=== PATIENT | male | born 1965 | race Caucasian/White ===

== ENCOUNTER 2016-08-30 02:36 | Inpatient (IN) | payer OTHER ==
[2016-08-30] MEDS ORDERED: Sodium Chloride 0.9% 1,000 ML IV STA ×2 (02:54→06:15)
--- NOTE | 2016-08-30 03:07 | ED PDOC ---
HPI: Seizure Time Seen by Provider: 08/30/16 02:37 Chief Complaint (Nursing): Seizure Chief Complaint (Provider): seizure History Per: Patient, EMS History/Exam Limitations: no limitations Recent Seizure Activity Began: Just Before Arrival Number Of Seizures: One Length Of Seizures (Duration): Minutes Precipitating Factor(s): Recent Alcohol Ingestion Post-ictal Period: Yes Additional Complaint(s): 51yo male with PMHx including HTN and Crohn's disease presents to the ED s/p seizure. Patient states he drinks 6 pack of beer and whiskey everyday and reports he has had flu-like symptoms for 2 weeks and has been recently cutting back on the whiskey. According to EMS, reported 1 episode of tonic-clonic seizure that was less than 5 minutes witnessed by her. She noted postictal period and when EMS arrived patient's bp was elevated and he was tachycardic. Patient does not remember episode and last thing he remembers was falling asleep. Past Medical History Reviewed: Historical Data, Nursing Documentation, Vital Signs Vital Signs: Last Vital Signs Temp 98.1 F 08/30/16 02:53 Pulse 126 H 08/30/16 02:53 Resp 20 08/30/16 02:53 BP 154/99 H 08/30/16 02:53 Pulse Ox 93 L 08/30/16 06:18 - Medical History PMH: Crohn's Disease, HTN - Surgical History Surgical History: Hernia Repair (hernia present and large abdominal scar (well healed visible)) - Family History Family History: States: No Known Family Hx - Home Medications Home Medications: Ambulatory Orders Medication Instructions Recorded Lisinopril [Prinivil] 20 mg PO DAILY 08/30/16 metFORMIN [glucOPHAGE] 500 mg PO DAILY 08/30/16 - Allergies Allergies/Adverse Reactions: Allergies Allergy/AdvReac Type Severity Reaction Status Date / Time ibuprofen [From Motrin] AdvReac NAUSEA Verified 08/30/16 02:45 Review of Systems ROS Statement: Except As Marked, All Systems Reviewed And Found Negative Cardiovascular: Positive for: Other (high bp, tachycardic ) Neurological: Positive for: Seizures (x1) Physical Exam - Reviewed Nursing Documentation Reviewed: Yes Vital Signs Reviewed: Yes - Physical Exam Appears: Positive for: Well, No Acute Distress Head Exam: Positive for: ATRAUMATIC, NORMAL INSPECTION, NORMOCEPHALIC Skin: Positive for: Normal Color, Warm, Dry Eye Exam: Positive for: Normal appearance, EOMI, PERRL ENT: Negative for: Normal ENT Inspection (tongue fasiculations, multiple tongue abrasions and small hematomas) Neck: Positive for: Normal, Painless ROM, Supple Cardiovascular/Chest: Positive for: Tachycardia. Negative for: Murmur Respiratory: Positive for: Normal Breath Sounds. Negative for: Wheezing, Respiratory Distress Gastrointestinal/Abdominal: Positive for: Bowel Sounds, Soft, Hernia (abdominal wall hernia ). Negative for: Tenderness Back: Positive for: Normal Inspection. Negative for: L CVA Tenderness, R CVA Tenderness Extremity: Positive for: Normal ROM. Negative for: Deformity, Swelling Neurologic/Psych: Positive for: Alert, room service supervisor II-XII (intact ), Oriented (x3 ), Cerebellar Tests (normal ). Negative for: Motor/Sensory Deficits, Aphasia, Facial Droop, Other (tremulous) - Laboratory Results Result Diagrams: 08/30/16 03:14 08/30/16 03:14 - ECG O2 Sat by Pulse Oximetry: 93 Medical Decision Making Medical Decision Makin: Impression: alcohol withdrawal seizure Plan: CT head Labs EKG CXR Librium 50mg PO, IVF reassess 6AM: Pt. desaturating to 89% on RA, remains tachycardic, PNA on CXR, will admit for aspiration pna, alcohol withdrawal, thrombocytopenia. Scribe Attestation: Documented by Cecilio Lincoln acting as a scribe for Wes Tijerina MD. Provider Scribe Attestation: All medical record entries made by the Scribe were at my direction and personally dictated by me. I have reviewed the chart and agree that the record accurately reflects my personal performance of the history, physical exam, medical decision making, and the department course for this patient. I have also personally directed, reviewed, and agree with the discharge instructions and disposition. Disposition - Clinical Impression Clinical Impression: Aspiration pneumonia, Thrombocytopenia, Alcohol withdrawal seizure - Disposition Disposition Time: 06:18 Condition: SERIOUS
[2016-08-30 03:19] LABS: BASO % 0.3 % (0.0-2.0); HEMATOCRIT 38.8 % (35.0-51.0); LYMPH # 0.1 K/uL (1.0-4.3); LYMPH % 1.9 % (20.0-40.0); MEAN CELL VOLUME 92.8 fl (80.0-94.0); MEAN CORPUSCULAR HEMOGLOBIN 31.4 pg (27.0-31.0); MEAN CORPUSCULAR HGB CONC 33.8 g/dL (33.0-37.0); MEAN PLATELET VOLUME 9.8 fl (7.2-11.7); MONO # 0.6 K/uL (0.0-0.8); MONO % 8.9 % (0.0-10.0); NEUT # 6.2 K/uL (1.8-7.0); NEUT % 88.9 % (50.0-75.0); PLATELET COUNT 41 K/uL (130-400); RED CELL DISTRIBUTION WIDTH 14.7 % (11.5-14.5)
[2016-08-30 03:24] LABS: CHLORIDE 97 mmol/L (98-107); SODIUM 130 mmol/l (132-148)
[2016-08-30 03:26] LABS: GFR AFRICAN-AMERICAN > 60
[2016-08-30 03:27] LABS: ALCOHOL SERUM < 10 mg/dl (0-10); BLOOD UREA NITROGEN 8 mg/dl (9-20); CARBON DIOXIDE 13 mmol/L (22-30); GLUCOSE,RANDOM 126 mg/dL (75-110)
[2016-08-30 03:28] LABS: CALCIUM 8.8 mg/dL (8.4-10.2)
--- NOTE | 2016-08-30 03:37 | CT ---
EXAM: CT Head Without Intravenous Contrast. CLINICAL HISTORY: 51 years old, male; Signs and symptoms; Other: Seizure; Additional info: First time seizure TECHNIQUE: Axial computed tomography images of the head/brain without intravenous contrast. This CT exam was performed using one or more of the following dose reduction techniques: automated exposure control, adjustment of the mA and/or kV according to patient size, and/or use of iterative reconstruction technique. Coronal and sagittal reformatted images were created and reviewed. COMPARISON: CT - HEAD^HEAD ROUTINE (ADULT) 05/07/2009 1:53:47 AM FINDINGS: Limitations: Motion artifact - mild. Brain: Mild atrophy. No intracranial hemorrhage. No mass. No definite edema. Ventricles: No hydrocephalus. Bones/joints: No acute fracture. Soft tissues: Unremarkable. Vasculature: Several foci of air within intracranial and extracranial vessels, nonspecific but possibly iatrogenic. Clinical correlation is needed. Sinuses: Near complete opacification of RIGHT maxillary sinus. Scattered minimal mucosal thickening of remaining sinuses. Mastoid air cells: No mastoid effusion. IMPRESSION: 1. No definite acute intracranial abnormality. 2. Sinus disease. 3. Incidental/non-acute findings are described above.
[2016-08-30] MEDS ORDERED: Ampicillin/Sulbactam 3 GM in Sodium Chloride 0.9% 100 ML IVPB STA (04:23)
[2016-08-30] MEDS ORDERED: Sodium Chloride 0.9% 2,000 ML IV STA (04:26)
[2016-08-30 05:09] LABS: RBC URINE 3 /hpf (0-3); URINE BACTERIA RARE (<OCC); URINE BILIRUBIN NEGATIVE (NEGATIVE); URINE BLOOD MODERATE (NEGATIVE); URINE COLOR YELLOW (YELLOW); URINE GLUCOSE (UA) NEG (Normal); URINE KETONE 80 mg/dL (NEGATIVE); URINE LEUKOCYTE ESTERASE NEG Leu/uL (Negative); URINE PROTEIN 100 mg/dL (NEGATIVE); URINE UROBILINOGEN 0.2-1.0 mg/dL (0.2-1.0); WBC URINE 3 /hpf (0-5)
[2016-08-30 05:17] LABS: NEUTROPHIL 86 % (42-75); TOTAL CELLS COUNTED 100
[2016-08-30 05:24] LABS: GIANT PLATELETS PRESENT
[2016-08-30] MEDS ORDERED: Multivitamin (MVI) 10 ML, Folic Acid 1 MG, Thiamine 100 MG in Dextrose 5%/0.45% NS 1,00... IV ONE (06:22)
--- NOTE | 2016-08-30 08:31 | RAD ---
HISTORY: sob, seizure COMPARISON: Comparison is made to the previous study dated 02/24/2014 TECHNIQUE: Chest PA and lateral FINDINGS: LUNGS: Heterogeneous opacity seen at the inferior aspect of the right upper lobe and in the right lower lobe of uncertain etiology. The differential diagnosis includes multifocal pneumonia or aspiration pneumonia. Mild elevation of the right hemidiaphragm. PLEURA: No significant pleural effusion identified. No pneumothorax apparent. CARDIOVASCULAR: The cardiac silhouette is mildly enlarged. OSSEOUS STRUCTURES: No significant abnormalities. VISUALIZED UPPER ABDOMEN: Normal. OTHER FINDINGS: None. IMPRESSION: Heterogeneous opacities at the inferior aspect of the right upper lobe and right lower lobe may represent pneumonia versus aspiration pneumonia or atelectasis. Otherwise no significant interval change.
[2016-08-30] MEDS ORDERED: cefTRIAXone 2 GM in Sodium Chloride 0.9% 100 ML IVPB SCH (09:00)
[2016-08-30 09:25] VITALS: BMI 29.9
--- NOTE | 2016-08-30 09:25 | CARD ---
APPROVED REPORT <Conclusion> Sinus tachycardia Left axis deviation Incomplete right bundle branch block Possible septal infarct, age undetermined Abnormal ECG
[2016-08-30] MEDS ORDERED: Pneumococcal 23-Valent Vaccine IM ONE (09:46)
[2016-08-30] MEDS ORDERED: Influenza Vaccine(5yr & older) 0.5 ML/45 MCG IM ONE (09:46)
[2016-08-30] MEDS: Azithromycin 500 MG in Sodium Chloride 0.9% 250 ML IVPB SCH (15:34)
[2016-08-30 15:39] LABS: ALB/GLOB RATIO 0.9 (1.0-2.1); ALKALINE PHOSPHATASE 145 U/L (38-126); ALT/SGPT 27 U/L (21-72); AST/SGOT 93 U/L (17-59); BILIRUBIN,TOTAL 2.8 mg/dl (0.2-1.3); BLOOD UREA NITROGEN 12 mg/dl (9-20); CALCIUM 8.4 mg/dL (8.4-10.2); CARBON DIOXIDE 24 mmol/L (22-30); CHLORIDE 97 mmol/L (98-107); GFR AFRICAN-AMERICAN > 60; GLUCOSE,RANDOM 171 mg/dL (75-110); POTASSIUM 3.4 MMOL/L (3.6-5.0); SODIUM 132 mmol/l (132-148); TOTAL PROTEIN 7.2 G/DL (6.3-8.2)
[2016-08-30] MEDS: Piperacillin/Tazobact 3.375 GM in Sodium Chloride 0.9% 100 ML IVPB SCH ×2 (17:35→21:26)
[2016-08-31 05:05] LABS: HEMATOCRIT 37.1 % (35.0-51.0); MEAN CELL VOLUME 92.5 fl (80.0-94.0); MEAN CORPUSCULAR HEMOGLOBIN 31.1 pg (27.0-31.0); MEAN CORPUSCULAR HGB CONC 33.6 g/dL (33.0-37.0); RED CELL DISTRIBUTION WIDTH 14.9 % (11.5-14.5); WHITE BLOOD COUNT 5.2 K/uL (4.8-10.8)
[2016-08-31] MEDS: Piperacillin/Tazobact 3.375 GM in Sodium Chloride 0.9% 100 ML IVPB SCH ×4 (05:18→21:20)
[2016-08-31] MEDS ORDERED: Potassium Chloride 20 mEq ER Tab PO ONE (08:21)
--- NOTE | 2016-08-31 08:39 | HP ---
HISTORY OF PRESENT ILLNESS: This is a 51-year-old male with history of hypertension and alcohol abuse, presented to [facility] Room by EMS after he had seizure episode witnessed by his at home. The patient states th at he usually drinks every other day and for the last 2 days, he could not eat or drink as he was fee ling sick with respiratory symptoms. The patient had tonic-clonic seizure episodes witnessed by the and he also had a tongue bite with tongue contusion. The patient was evaluated in the Emergency Room, stabilized and admitted to telemetry floor for further management. Evaluation in the Emergenc y Room chest x-ray revealed that patient has heterogeneous opacities at the inferior aspect of the right upper lobe and right lower lobe, which may represent pneumonia. negative. ALLERGIES: No known allergies. HOME MEDICATIONS: metformin 500 mg daily. PAST MEDICAL HISTORY: Type 2 diabetes mellitus and hypertension. SOCIAL HISTORY: No smoking. Positive abuse and denied any other substance abuse. FAMILY HISTORY: Not contributory. PHYSICAL EXAMINATION: GENERAL: The patient is a bit comfortable, not in any cardiopulmonary distress at the time of this e xamination. VITAL SIGNS: Blood pressure 133/85, temperature 98.9, respiratory rate 18, and pulse . HEENT: Pupils equal, reactive to light, . NECK: Supple, no JVD, no carotid bruit, no lymph nodes, no thyromegaly. CHEST AND LUNGS: Symmetrical expansion. Good air exchange. No rales, no rhonchi. CARDIOVASCULAR: PMI not localized. S1, S2. No additional sounds. ABDOMEN: Normoactive bowel sounds, no tenderness, no organomegaly, no masses. EXTREMITIES: No cyanosis, no clubbing, no edema. CENTRAL NERVOUS SYSTEM: Alert, awake, oriented x 2. No neurological deficits could be appreciated. ASSESSMENT: 1. Alcohol withdrawal seizure. 2. Aspiration pneumonia. 3. Hypertension. PLAN: We will give Zosyn 3.375 gram IV every 6 hours as well as thiamine and multivitamin and do Accu-Cheks . precautions. We will give Ativan 2 mg every 4 hours as needed for agitation or withdrawal s ymptoms. [facility]OWERS cc: 167 TT: 08/31/2016 06:57:25 hn
[2016-08-31] MEDS: Azithromycin 500 MG in Sodium Chloride 0.9% 250 ML IVPB SCH (08:40)
--- NOTE | 2016-08-31 08:51 | CON ---
DATE: 08/30/2016 REASON FOR CONSULTATION: New onset seizure. HISTORY OF PRESENT ILLNESS: The patient is a 51-year-old male who I have been asked for evaluation of new onset of seizure. The patient apparently drinks ___ _ of beer and whiskey every day. However, he has been trying to cut down on his whisky. He had one episode of tonic-clonic seizure lasting for about 5 minutes, witnessed by his questionably. The patient's blood pressure was elevated and he was tachycardic on arrival to the Emergency Room. PAST MEDICAL HISTORY: Includes Crohn's disease, hypertension. REVIEW OF SYSTEMS: Denies any headache, dizziness, chest pain, shortness of breath, abdominal pain, constipation, diarrhea, dysuria, pyuria, cough or sputum production. PAST SURGICAL HISTORY: Hernia repair. ALLERGIES: IBUPROFEN. PAST MEDICAL HISTORY: Includes hypertension and diabetes mellitus. MEDICATIONS AT HOME: Included lisinopril and metformin. SOCIAL HISTORY: He is a former smoker. He does drink alcohol. Denies use of any illicit drugs. History of cocaine use 3 years ago. PHYSICAL EXAMINATION: GENERAL: The patient is a middle-aged male lying on the bed, in no acute distress. VITAL SIGNS: His blood pressure is 127/86, heart rate is 111 per minute, breathing at a rate of 16 per minute, temperature is 97.8 degrees Fahrenheit. HEENT: Head is normocephalic, atraumatic. NECK: Supple. There are no carotid bruits. LUNGS: Clear. CARDIOVASCULAR: S1, S2 audible. No murmurs. ABDOMEN: Soft, nontender, bowel sounds present. NEUROLOGIC EXAMINATION: MENTAL STATUS: The patient is awake, alert, oriented to self, confused. Speech is fluent. Naming and repetition is normal. Memory and cognition are intact. CRANIAL NERVES: Pupils are 5 mm bilaterally reactive to light. Visual pittman are full. Extraocular movements are intact. There is no facial asymmetry. Palate is upgoing bilaterally and tongue is midline. MOTOR: Tone is normal. Power is 5/5 bilaterally in all extremities. Reflexes +2 and symmetrical. Plantars downgoing bilaterally. CEREBELLAR: [id number] shows no dysmetria. GAIT: Deferred at the moment. LABORATORY DATA: Reviewed. Shows WBC of 7.0, hemoglobin 13.1, hematocrit of 38.8 and platelets of 41,000. His sodium is 132, potassium is 3.4, chloride of 97, carbon dioxide content 24, BUN of 12, creatinine of 1.0 and glucose of 171. His urine toxicology is negative. His alcohol level is less than 10. He had a CT scan of the head done which showed no acute abnormality. IMPRESSION: New onset of seizure, most likely secondary to alcohol withdrawal. Altered mental status- post ictal vs secondary to Alcohol Withdrawal RECOMMENDATIONS: 1. The patient to have MRI of the brain without contrast. 2. The patient also to have an electroencephalogram. 3. I agree with the patient being on lorazepam for jitteriness and for alcohol withdrawal. Watch for DTs. 4. Please continue other treatment including thiamine and multivitamin. Thank you for the opportunity to participate in the care of this patient. Julio Cesar Quintero MD cc: 142 TT: 08/31/2016 07:24:52 Confirmation # [id number] Dictation # [id number] saji LEVINE
[2016-08-31] MEDS: Multivitamin With Minerals Tab PO SCH (13:29)
--- NOTE | 2016-08-31 15:17 | PN ---
DATE: 08/31/2016 SUBJECTIVE: The patient is lying on the bed, appears to be confused and slightly restless. PHYSICAL EXAMINATION: VITAL SIGNS: Blood pressure is 170/91, heart rate is 113 per minute. His temperature is 97.4 degree s Fahrenheit and he is breathing at a rate of 16 per minute. HEENT: Head is normocephalic, atraumatic. NECK: Supple. There are no carotid bruits. LUNGS: Clear. CARDIOVASCULAR: S1, S2 audible, no murmurs. ABDOMEN: Soft, nontender, bowel sounds present. NEUROLOGIC EXAMINATION: MENTAL STATUS: The patient is awake, alert, he is confused with incomprehensible words. He follows some commands. CRANIAL NERVE EXAMINATION: Pupils are 4 mm bilaterally reactive to light. Visual pittman are full. Extraocular movements are intact. There is no facial asymmetry. Palate is upgoing bilaterally and t ongue is midline. MOTOR EXAMINATION: Power is 5/5 bilaterally in all extremities. Reflexes +2 and symmetrical. Gait is deferred at the moment. IMPRESSION: 1. New onset seizure, which is likely secondary to alcohol withdrawal. 2. The patient appears to be in delirium tremens. RECOMMENDATIONS: 1. No anticonvulsant is indicated at present. 2. The patient to be continued on benzodiazepine. 3. Consider transferring the patient to intensive care unit for close monitoring and aggressive gisela odiazepine use. 4. Please continue supportive care and other treatment. Thank you for the opportunity to participate in the care of this patient. Julio Cesar Quintero MD cc: 142 TT: 08/31/2016 15:17:06 Confirmation # [id number] Dictation # [id number] lelsie
[2016-08-31] MEDS: Sodium Chloride 0.9% 1,000 ML IV SCH (17:02)
[2016-08-31] MEDS ORDERED: Dexmedetomidine Hydrochloride 400 MCG in Sodium Chloride 0.9% 96 ML IV ONE (17:16)
[2016-08-31] MEDS ORDERED: Multivitamin (MVI) 10 ML, Folic Acid 1 MG, Thiamine 100 MG in Dextrose 5%/0.45% NS 1,00... IV ONE (17:36)
--- NOTE | 2016-08-31 17:54 | CP.CCUPN ---
CCU Subjective - Physician Review Subjective (Free Text): GEOPHYSICAL LABORATORY SUPERVISOR PROGRESS NOTE Patient examined, interim events reviewed, called by PMD for ICU transfer for DT s: No further historical data obtainable from patient who is delirious and agitated , not following commands, and trying to get OOB. After review of all available physician and Nursing notes: 51M hypertensive diabetic on Lisinopril and metformin, admitted overnight yesterday for new onset seizure disorder. He drinks beer and whiskey daily, but ETOH level on admission was <10. Admitted to telemetry unit overnight and has been progressively agitated and uncooperative, rambling speech noted and trying to get OOB. Treated with PO Ativan 2 mg with short-lived, one hour sedation effects. Under 1:1 supervision now and getting up OOB and trying to remove single remaining peripheral IV line. No further seizure activity reported. Allergies: Ibuprofen ROS: unobtainable, not present. PMFSHH: HTN, Chrohns Disease. Abdominal hernia repair and bowel surgery. Other history unobtainable at this time. No other distress noted: EXAM- HEENT: no icterus, pupils equal and reactive, no gaze preference, no nystagmus NECK: no visible JVD, supple, carotids equal upstroke bilat/no bruits CHEST: decreased at the bases, no wheezes audible. HEART: regular, distant, tahcy S1S2, no murmur audible, no rubs. ABD: soft, no increased distention, no guarding, no HSM. BS hypoactive, well healed vertical scar. EXT: no edema, no peripheral/ digital cyanosis, no calf tenderness or palpable cords, distal pulses intact and symmetrical NEURO: no gross focal motor deficits. SKIN: no rashes LABS: WBC= 5.2 HGB= 12.5 PLTs= 40K Na= 132 K= 3.4 HCO3= 24 BUN/Cr= 12/1.0 BS= 171 AST/ ALT= 93/27 AP= 145 Tbili= 2.8 CK= 235 2/12 BC x1 bottle + GPC in clusters. CXR admission: Bi-hilar and RML interstitial changes (my interp) EKG: sinus tachy 130/min, poor R progression anteriorly. No major changes from [address] Brain: No brain pathology, R maxillary sinus opacification. Assessment: 1. Alcohol Withdrawal Syndrome / Delirium Tremans 2. New Onset Seizure Disorder 2 ETOH Withdrawal 3. Acute Resp Insuff 2 Aspiration Pneumonitis 4. Borderline hyponatremia / hypokalemia 2 Chronic Alcoholism 5. Thrombocytopenia 2 Chronic Alcoholism 6. Alcoholic Liver Disease PLAN: 1. ICU observation, 1:1, Neurochecks, Seizure precautions. 2. Start Precedex infusion. 3. Start Librium PO, with Ativan IV if needed for breakthrough (if not controlled by Precedex). If needed, reserve oral intubation for airway protection and MV support for severe life threatening DTs. 4. Thiamine, folate supplements, IVF hydration, start banana bag IVFs now. 5. Monitor repeat Na and K levels. Check Mag, Phos levels. No acidotic state noted. 6. Repeat BC to r/o contamination. 7. Formal Neurology eval noted, on no antiepileptics for now. 8. Empiric Abx coverage with Vanco x 1 dose , Zosyn noted. 9. Maintain normoglycemia. 10. Check Coag studies, none done on admission.
[2016-08-31] MEDS: Dexmedetomidine Hydrochloride 400 MCG in Sodium Chloride 0.9% 96 ML IV ONE (18:09)
--- NOTE | 2016-08-31 18:48 | CP.PCM.PN ---
Subjective - Date & Time of Evaluation Date of Evaluation: 08/31/16 Time of Evaluation: 18:46 - Subjective Subjective: ID NOTE PATIENT EXAMINED .CHART REVIEWED HAVE ADDED CLINDAMYCIN CONTINUE ZOSYN AWAIT CULTURE Objective - Vital Signs/Intake and Output Vital Signs (last 24 hours): Temp Pulse Resp BP Pulse Ox 98 F 120 H 20 146/99 H 95 08/31/16 17:00 08/31/16 17:00 08/31/16 17:00 08/31/16 17:00 08/31/16 17:00 - Medications Medications: Current Medications Folic Acid (Folic Acid) 1 mg PO DAILY [facility] Last Admin: 08/31/16 13:29 Dose: 1 mg Piperacillin Sod/Tazobactam (Sod 3.375 gm/ Sodium Chloride) 100 mls @ 100 mls/ hr IVPB Q6 [facility] Last Admin: 08/31/16 17:07 Dose: 100 mls/hr Sodium Chloride (Sodium Chloride 0.9%) 1,000 mls @ 150 mls/hr IV .Q6H40M [facility] Stop: 09/01/16 14:46 Last Admin: 08/31/16 17:02 Dose: 150 mls/hr Multivitamins/Vitamin C 10 ml/Folic Acid 1 mg/ Thiamine HCl 100 mg/ Dextrose/ Sodium Chloride 1,011.2 mls @ 200 mls/hr IV .Q5H4M ONE Stop: 08/31/16 22:39 Potassium Chloride 20 meq/ (Sodium Chloride) 1,010 mls @ 150 mls/hr IV .Q6H44M [facility] Stop: 09/01/16 17:46 Dexmedetomidine HCl 400 mcg/ (Sodium Chloride) 100 mls @ 4.87 mls/hr IV .[id number] ONE; 0.2 MCG/KG/HR PRN Reason: Protocol Stop: 09/01/16 14:17 Last Admin: 08/31/16 18:09 Dose: 4.87 mls/hr Clindamycin Phosphate 600 mg/ (Sodium Chloride) 54 mls @ 54 mls/hr IVPB Q8 [facility] Insulin Human Regular (Humulin R) 0 units SC ACCU-CHECK CORTNEY PRN Reason: Protocol Lisinopril (Zestril) 20 mg PO DAILY [facility] Last Admin: 08/31/16 08:35 Dose: 20 mg Lorazepam (Ativan) 2 mg IVP Q4H [facility] Last Admin: 08/31/16 14:24 Dose: 2 mg Lorazepam (Ativan) 2 mg IVP Q2 PRN PRN Reason: Agitation Last Admin: 08/31/16 16:56 Dose: 2 mg Metformin HCl (Glucophage) 500 mg PO DAILY [facility] Last Admin: 08/31/16 08:35 Dose: 500 mg Multivitamins/Minerals (Therapeutic-M Tab) 1 tab PO DAILY [facility] Last Admin: 08/31/16 13:29 Dose: 1 tab Pantoprazole Sodium (Protonix Inj) 40 mg IVP DAILY [facility] Thiamine HCl (Vitamin B1 Tab) 100 mg PO DAILY [facility] Last Admin: 08/31/16 13:29 Dose: 100 mg - Labs Labs: 08/31/16 04:10 08/30/16 15:00
[2016-08-31] MEDS: Insulin Regular 100 units/ml SC SCH (22:03)
--- NOTE | 2016-08-31 23:18 | PN ---
DATE: 08/31/2016 SUBJECTIVE: The patient is seen today on 08/31/2016. He was agitated and hallucination. The patient has been on Ativan every 4 hours and every 2 hours as needed. PHYSICAL EXAMINATION: VITAL SIGNS: Blood pressure was 146/99, heart rate 120, temperature 98, and respiratory rate 20. HEENT: Pupils are equally reactive to light. Normal-appearing mucosa of the conjunctivae, oropharyn geal and nasal membrane mucosa. NECK: Supple, no JVD, no carotid bruit, no lymph node, no thyromegaly. CHEST AND LUNGS: Bilateral symmetrical expansion, good air exchange, no rales, no rhonchi. CARDIOVASCULAR: PMI not localized. S1, S2. No additional sounds. ABDOMEN: Normoactive bowel sounds, no tenderness, no organomegaly, no masses. EXTREMITIES: No cyanosis, no clubbing, no edema. CENTRAL NERVOUS SYSTEM: The patient is confused, agitated, and hallucinating. ASSESSMENT: 1. Alcohol withdrawal seizure. 2. . PLAN: I discussed the patient's condition with registered nurse post partum who accepted the patient to intensive car e unit for close observation and giving frequent diazepam as needed. We will continue current IV ant ibiotics as the patient also grew gram-positive cocci in the blood culture and will call for ID consu lt and will do echocardiogram, and continue current antibiotics, both Zosyn and azithromycin treating the right upper and lower lobe pneumonia, which most likely aspiration pneumonia. Canelo Ellison MD cc: [id number] TT: 08/31/2016 23:18:13 Confirmation # [id number] Dictation # [id number]
[2016-09-01] MEDS: Clindamycin 600 MG in Sodium Chloride 0.9% 100 ML IVPB SCH ×3 (00:25→16:55)
[2016-09-01] MEDS: Piperacillin/Tazobact 3.375 GM in Sodium Chloride 0.9% 100 ML IVPB SCH ×4 (03:20→21:21)
[2016-09-01] MEDS: Insulin Regular 100 units/ml SC SCH ×4 (06:34→23:06)
--- NOTE | 2016-09-01 06:42 | CP.CCUPN ---
CCU Subjective - Physician Review Subjective (Free Text): CANCER REGISTRAR PROGRESS NOTE Patient examined, interim events reviewed: No further historical data obtainable from patient who is delirious and agitated , not following commands, and trying to get OOB. After review of all available physician and Calm and sleeping now on Precedex at 0.7 mcg/kg/hr. IVFs with NSS at 150 ml/hr. He has npt rec'd any Diazepam. Afebriel, no fever spikes over last 24H, HR 75, BP 111/67, RR 17,. SPo2 99% on NC. ROS: unobtainable, not present. PMFSHH: HTN, Chrohns Disease. Abdominal hernia repair and bowel surgery. Other history unobtainable at this time for relevancy to current problems,. No other distress noted: EXAM- HEENT: no icterus, pupils equal and reactive, no gaze preference, no nystagmus NECK: no visible JVD, supple, carotids equal upstroke bilat/no bruits CHEST: decreased at the bases, no wheezes audible. HEART: regular, distant, non tachy S1S2, no murmur audible, no rubs. ABD: soft, no increased distention, no guarding, no HSM. BS hypoactive, well healed vertical scar. EXT: no edema, no peripheral/ digital cyanosis, no calf tenderness or palpable cords, distal pulses intact and symmetrical NEURO: no gross focal motor deficits. SKIN: no rashes LABS: WBC= 5.2 HGB= 12.5 PLTs= 40K Na= 132 K= 3.4 HCO3= 24 BUN/Cr= 12/1.0 BS= 171 AST/ ALT= 93/27 AP= 145 Tbili= 2.8 CK= 235 2/ BC x1 bottle + GPC in clusters. CXR admission: Bi-hilar and RML interstitial changes (my interp) EKG: sinus tachy 130/min, poor R progression anteriorly. No major changes from [address] Brain: No brain pathology, R maxillary sinus opacification. Assessment: 1. Alcohol Withdrawal Syndrome / Delirium Tremans 2. New Onset Seizure Disorder 2 ETOH Withdrawal 3. Acute Resp Insuff 2 Aspiration Pneumonitis 4. Borderline hyponatremia / hypokalemia 2 Chronic Alcoholism 5. Thrombocytopenia 2 Chronic Alcoholism 6. Alcoholic Liver Disease PLAN: 1. Awaiting all AM labs as of 6:40AM, will place orders accordingly if any abnormal results noted. Awaiting on repeat CXR- still "fetching" as per PACs. 2. Maintain sedation with Precedex for another 24h before weaning off. 3. Start Librium. 4. IVF hydration ongoing. 5. Thiamine / Folate supps. 6. Empiric abx coverage noted as per ID.
[2016-09-01 06:48] LABS: BASO % 0.5 % (0.0-2.0); EOS % 0.6 % (0.0-4.0); HEMATOCRIT 36.6 % (35.0-51.0); LYMPH # 0.2 K/uL (1.0-4.3); LYMPH % 4.3 % (20.0-40.0); MEAN CELL VOLUME 94.9 fl (80.0-94.0); MEAN CORPUSCULAR HEMOGLOBIN 31.4 pg (27.0-31.0); MEAN PLATELET VOLUME 11.4 fl (7.2-11.7); MONO # 0.6 K/uL (0.0-0.8); NEUT # 3.7 K/uL (1.8-7.0); NEUT % 81.6 % (50.0-75.0); RED CELL DISTRIBUTION WIDTH 15.3 % (11.5-14.5); WHITE BLOOD COUNT 4.5 K/uL (4.8-10.8)
[2016-09-01 06:54] LABS: ALB/GLOB RATIO 0.9 (1.0-2.1); ALKALINE PHOSPHATASE 117 U/L (38-126); ALT/SGPT 34 U/L (21-72); AST/SGOT 162 U/L (17-59); BILIRUBIN,TOTAL 2.4 mg/dl (0.2-1.3); BLOOD UREA NITROGEN 15 mg/dl (9-20); CALCIUM 8.4 mg/dL (8.4-10.2); CARBON DIOXIDE 18 mmol/L (22-30); CHLORIDE 107 mmol/L (98-107); GFR AFRICAN-AMERICAN > 60; GLUCOSE,RANDOM 139 mg/dL (75-110); MAGNESIUM 1.7 MG/DL (1.6-2.3); PHOSPHOROUS 3.9 mg/dl (2.5-4.5); POTASSIUM 3.8 MMOL/L (3.6-5.0); SODIUM 141 mmol/l (132-148)
[2016-09-01 06:57] LABS: PARTIAL THROMBOPLASTIN TIME 27.8 SECONDS (23.3-32.5)
--- NOTE | 2016-09-01 08:46 | EEG ---
DATE: 08/30/2016 INTRODUCTION: This is a digitally recorded EEG monitoring using standard EEG montages. BACKGROUND RHYTHM: The EEG shows a background activity of greater than 13 Hz beta activity. This EE G activity is present diffusely. Small amount of movement artifact noticed in this EEG recording. ABNORMAL POTENTIALS: No spikes, sharp waves or focal slowing was seen. PHOTIC STIMULATION AND HYPERVENTILATION: Photic stimulation did not reveal any abnormality. Hyperve ntilation was not performed. IMPRESSION: Normal EEG. The presence of beta activity suggests medication side effect (benzodiazepi ne, barbiturate) or anxiety. Clinical correlation is suggested. Julio Cesar Quintero MD cc: 142 TT: 08/31/2016 15:29:21 Confirmation # [id number] Dictation # [id number]
[2016-09-01] MEDS: Sodium Chloride 0.9% 1,000 ML IV SCH (10:04)
[2016-09-01] MEDS: Multivitamin With Minerals Tab PO SCH (10:05)
--- NOTE | 2016-09-01 10:23 | RAD ---
HISTORY: f/u Pneumonia COMPARISON: 08/30/2016 FINDINGS: LUNGS: Improving right lower lobe infiltrate PLEURA: No significant pleural effusion identified, no pneumothorax apparent. CARDIOVASCULAR: Moderate cardiomegaly. Mild vascular congestion OSSEOUS STRUCTURES: No significant abnormalities. VISUALIZED UPPER ABDOMEN: Normal. OTHER FINDINGS: None. IMPRESSION: Improving right lower lobe infiltrate
[2016-09-01] MEDS: Dexmedetomidine Hydrochloride 400 MCG in Sodium Chloride 0.9% 96 ML IV ONE ×3 (10:46→21:18)
[2016-09-01] MEDS: DEXTROSE 5% IV SCH (17:06)
[2016-09-01] MEDS: WATER IV SCH (17:06)
[2016-09-01] MEDS: SODIUM BICARBONATE IV SCH (17:06)
[2016-09-01] MEDS: POTASSIUM CHLORIDE IV SCH (17:06)
[2016-09-01] MEDS ORDERED: Dexmedetomidine Hydrochloride 400 MCG in Sodium Chloride 0.9% 96 ML IV ONE ×2 (17:34→20:53)
--- NOTE | 2016-09-01 23:05 | PN ---
DATE: 09/01/2016 SUBJECTIVE: The patient is seen today 09/01/2016 ____ intensive care unit and he is sedated on dexmed etomidine drip. The patient also is getting Ativan for agitation. PHYSICAL EXAMINATION: VITAL SIGNS: Blood pressure 122/86, pulse 85, respiratory rate 20, temperature is 99.2. HEENT: Pupils equal, reactive to light. Normal-appearing mucosa of the conjunctivae, oropharyngeal and nasal membrane mucosa. NECK: Supple, no JVD, no carotid bruit, no lymph node, no thyromegaly. CHEST AND LUNGS: Bilateral good air exchange, no rales, no rhonchi. CARDIOVASCULAR: PMI not localized. S1, S2. No additional sounds. ABDOMEN: Normoactive bowel sounds, no tenderness, no organomegaly, no masses. EXTREMITIES: No cyanosis, no clubbing, no edema. CENTRAL NERVOUS SYSTEM: The patient is currently sedated. ASSESSMENT: 1. Alcohol withdrawal with impending delirium tremens. 2. Thrombocytopenia. PLAN: Continue current sedation with Ativan as needed and ____ will consult hematology and follow re commendations of urologist and infectious disease for the bacteremia. Canelo Ellison MD cc: [phone] TT: 09/01/2016 23:05:02 Confirmation # [id number] Dictation # [id number] berta
[2016-09-02] MEDS: Clindamycin 600 MG in Sodium Chloride 0.9% 100 ML IVPB SCH ×4 (01:14→19:44)
[2016-09-02] MEDS: Dexmedetomidine Hydrochloride 400 MCG in Sodium Chloride 0.9% 96 ML IV ONE ×7 (01:18→20:43)
[2016-09-02] MEDS: DEXTROSE 5% IV SCH (03:43)
[2016-09-02] MEDS: WATER IV SCH (03:43)
[2016-09-02] MEDS: SODIUM BICARBONATE IV SCH (03:43)
[2016-09-02] MEDS: POTASSIUM CHLORIDE IV SCH (03:43)
[2016-09-02] MEDS: Piperacillin/Tazobact 3.375 GM in Sodium Chloride 0.9% 100 ML IVPB SCH ×4 (04:16→21:20)
[2016-09-02 05:06] LABS: BASO % 0.5 % (0.0-2.0); EOS % 0.1 % (0.0-4.0); HEMATOCRIT 39.7 % (35.0-51.0); LYMPH # 0.5 K/uL (1.0-4.3); LYMPH % 6.3 % (20.0-40.0); MEAN CELL VOLUME 95.4 fl (80.0-94.0); MEAN CORPUSCULAR HEMOGLOBIN 31.6 pg (27.0-31.0); MEAN CORPUSCULAR HGB CONC 33.1 g/dL (33.0-37.0); MEAN PLATELET VOLUME 11.8 fl (7.2-11.7); MONO # 1.2 K/uL (0.0-0.8); MONO % 15.6 % (0.0-10.0); NEUT % 77.5 % (50.0-75.0); PLATELET COUNT 60 K/uL (130-400); RED CELL DISTRIBUTION WIDTH 15.4 % (11.5-14.5); WHITE BLOOD COUNT 7.8 K/uL (4.8-10.8)
[2016-09-02 05:18] LABS: ALB/GLOB RATIO 0.9 (1.0-2.1); BILIRUBIN,TOTAL 3.3 mg/dl (0.2-1.3); CALCIUM 8.5 mg/dL (8.4-10.2); POTASSIUM 4.5 MMOL/L (3.6-5.0)
[2016-09-02 05:32] LABS: PARTIAL THROMBOPLASTIN TIME 27.9 SECONDS (23.3-32.5)
[2016-09-02 06:43] LABS: MYELOCYTE 1 % (0-0); NEUTROPHIL 80 % (42-75); REACTIVE LYMPHOCYTES 1 % (0-0); TOTAL CELLS COUNTED 100
[2016-09-02 06:44] LABS: LARGE PLATELETS PRESENT
[2016-09-02 06:45] LABS: GIANT PLATELETS PRESENT
[2016-09-02] MEDS: Insulin Regular 100 units/ml SC SCH ×4 (06:52→22:43)
--- NOTE | 2016-09-02 07:52 | CP.CCUPN ---
CCU Subjective - Physician Review Subjective (Free Text): PROPERTY MANAGEMENT INTERN PROGRESS NOTE Patient examined, interim events reviewed: Appears calm and sleeping now on Precedex at 1.0 mcg/kg/hr. IVFs with NSS at 175 ml/hr. Last rec'd Ativan IVP at approx. 6AM. Has not been given and / or able to take any Librium PO. Bedside 1:1 aide states he has been awakening almost Q2h and tries to get OOB. Afebrile, T max 100F over last 24H, HR 79, BP 115/77, RR 20. SPo2 95% on NC. I/ Os last 24H= +3.3L. ROS: unobtainable, not present. PMFSHH: HTN, Crohns Disease. Abdominal hernia repair and bowel surgery. Other history unobtainable at this time for relevancy to current problems. No other distress noted: EXAM- HEENT: no icterus, pupils equal and reactive, no gaze preference, no nystagmus NECK: no visible JVD, supple, carotids equal upstroke bilat/no bruits CHEST: decreased at the bases, no wheezes audible. HEART: regular, distant, S1S2, no murmur audible, no rubs. ABD: soft, no increased distention, no guarding, no HSM. BS hypoactive, well healed vertical scar. EXT: no edema, no peripheral/ digital cyanosis, no calf tenderness or palpable cords, distal pulses intact and symmetrical NEURO: no gross focal motor deficits. SKIN: no rashes LABS: WBC= 7.8 HGB= 13.1 PLTs= 60K PT/INR/PTT= 14.7/1.41/27.9 Na= 146 K= 4.5 HCO3= 17 BUN/Cr= 24/1.7 BS= 227 AST/ ALT= 549/162 AP= normal Tbili= 3.3 CK= 235 to 5344 yesterday, now 3062 /12 BC x1 bottle + GPC in clusters. CXR 09/01 film reviewed, hypoexpanded lung p[place]man with crowded lung markings (my interp) Assessment: 1. Alcohol Withdrawal Syndrome / Delirium Tremans 2. New Onset Seizure Disorder 2 ETOH Withdrawal 3. Acute Resp Insuff 2 Aspiration Pneumonitis 4. Rhabdomyolysis 5. Thrombocytopenia 2 Chronic Alcoholism 6. Alcoholic Liver Disease PLAN: 1. ICU observation, 1:1, Neurochecks, Seizure precautions. 2. Continue Precedex infusion, try to taper down in AM. 3. Maintain aggressive IVF hydration (alkalinized fluids). 4. Consider Renal and GI consultations. 5. Empiric abx coverage ongoing.
[2016-09-02] MEDS ORDERED: Multivitamin (MVI) 10 ML, Folic Acid 1 MG, Thiamine 100 MG in Dextrose 5%/0.45% NS 1,00... IV ONE (09:39)
[2016-09-02] MEDS: Sodium Bicarbonate 8.4% 80 MEQ in Dextrose 5% In Water 1,000 ML IV SCH ×2 (10:18→19:58)
[2016-09-02] MEDS: Multivitamin With Minerals Tab PO SCH (10:36)
--- NOTE | 2016-09-02 10:59 | CP.PCM.CON ---
History of Present Illness - History of Present Illness History of Present Illness: This is a 51 yrs old male who was brought to the ER because of seizure activity. P6t is a known alcoholic consuming 1 six pack of beer and whiskey every day. He has had flu like symptoms the last 2 weeks so he tried to cut down on his whiskey.. He developed the seizures probably secondary to the alcohol withdrawal. He was admitted because he was post ictal, agitated, and could not give a history. On admission his WBCV were 7.0, hgb 13.2, and platelets 41K. A consult was called for the thrombocytopenia. He was admitted on the and since then the platelets have gone up to 60K probably due to abstinence from the alcohol. Past Patient History - Past Medical History & Family History Past Medical History?: Yes - Past Social History Smoking Status: Former Smoker - CARDIAC Hx Cardiac Disorders: Yes Hx Hypertension: Yes - PULMONARY Hx Respiratory Disorders: No - NEUROLOGICAL Hx Neurological Disorder: Yes Hx Seizures: Yes - HEENT Hx HEENT Problems: No - RENAL Hx Chronic Kidney Disease: No - ENDOCRINE/METABOLIC Hx Endocrine Disorders: Yes Hx Diabetes Mellitus Type 2: Yes - HEMATOLOGICAL/ONCOLOGICAL Hx Blood Disorders: No Hx AIDS: No Hx Human Immunodeficiency Virus (HIV): No - INTEGUMENTARY Hx Dermatological Problems: No - MUSCULOSKELETAL/RHEUMATOLOGICAL Hx Musculoskeletal Disorders: Yes Hx Falls: Yes (fell last night on the back from the couch) - GASTROINTESTINAL Hx Gastrointestinal Disorders: Yes Hx Crohn's Disease: Yes Other/Comment: LEFT AABDOMINAL HERNIA - GENITOURINARY/GYNECOLOGICAL Hx Genitourinary Disorders: No - PSYCHIATRIC Hx Psychophysiologic Disorder: Yes Hx Substance Use: Yes (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.) - SURGICAL HISTORY Hx Surgeries: Yes Other/Comment: BOWEL RESECTION 1989, APPENDECTOMY 1983 - ANESTHESIA Hx Anesthesia: Yes Hx Anesthesia Reactions: No Hx Malignant Hyperthermia: No Has any member of the family had a problem w/ anesthesia?: No Meds Allergies/Adverse Reactions: Allergies Allergy/AdvReac Type Severity Reaction Status Date / Time ibuprofen [From Motrin] AdvReac NAUSEA Verified 08/30/16 02:45 - Medications Medications: Current Medications Chlordiazepoxide (Librium) 50 mg PO Q8 [facility] Last Admin: 09/02/16 10:35 Dose: Not Given Famotidine (Pepcid) 40 mg PO HS [facility] Last Admin: 09/01/16 21:20 Dose: Not Given Folic Acid (Folic Acid) 1 mg PO DAILY [facility] Last Admin: 09/02/16 10:35 Dose: Not Given Piperacillin Sod/Tazobactam (Sod 3.375 gm/ Sodium Chloride) 100 mls @ 100 mls/ hr IVPB Q6 [facility] Last Admin: 09/02/16 10:37 Dose: 100 mls/hr Clindamycin Phosphate 600 mg/ (Sodium Chloride) 104 mls @ 104 mls/hr IVPB Q8 [facility] Last Admin: 09/02/16 10:20 Dose: 104 mls/hr Dexmedetomidine HCl 400 mcg/ (Sodium Chloride) 100 mls @ 4.87 mls/hr IV .[id number] ONE; 0.2 MCG/KG/HR PRN Reason: Protocol Stop: 09/02/16 17:32 Last Admin: 09/02/16 05:29 Dose: 24.38 mls/hr Sodium Bicarbonate 80 meq/ (Dextrose) 1,080 mls @ 175 mls/hr IV .Q6H11M [facility] Last Admin: 09/02/16 10:18 Dose: 175 mls/hr Multivitamins/Vitamin C 10 ml/Folic Acid 1 mg/ Thiamine HCl 100 mg/ Dextrose/ Sodium Chloride 1,011.2 mls @ 250 mls/hr IV .Q4H3M ONE Stop: 09/02/16 13:41 Insulin Human Regular (Humulin R) 0 units SC ACCU-CHECK [facility] PRN Reason: Protocol Last Admin: 09/02/16 06:52 Dose: 4 units Lorazepam (Ativan) 2 mg IVP Q2 PRN PRN Reason: Agitation Last Admin: 09/02/16 07:55 Dose: 2 mg Multivitamins/Minerals (Therapeutic-M Tab) 1 tab PO DAILY [facility] Last Admin: 09/02/16 10:36 Dose: Not Given Thiamine HCl (Vitamin B1 Tab) 100 mg PO DAILY [facility] Last Admin: 09/02/16 10:41 Dose: Not Given Physical Exam - Additional Findings Additional findings: Physical Exam; Pt is sleeping from the medicatiom given neck; supple , no adenopathy Chest; Clear, no rales or rhonchi Heart; soft, no mass, spleen 1cm below left costal margin. Results - Vital Signs Recent Vital Signs: Last Vital Signs Temp 98.2 F 09/02/16 04:00 Pulse 79 09/02/16 04:00 Resp 20 09/02/16 04:00 BP 115/77 09/02/16 04:00 Pulse Ox 95 09/02/16 04:00 - Labs Result Diagrams: 09/02/16 04:10 09/02/16 04:10 Labs: Laboratory Results - last 24 hr 09/01/16 09/01/16 09/02/16 15:50 23:03 04:10 WBC 7.8 D RBC 4.16 L Hgb 13.1 Hct 39.7 MCV 95.4 H MCH 31.6 H MCHC 33.1 RDW 15.4 H Plt Count 60 L D MPV 11.8 H Neut % (Auto) 77.5 H Lymph % (Auto) 6.3 L Beckham % (Auto) 15.6 H Eos % (Auto) 0.1 Baso % (Auto) 0.5 Neut # 6.0 Lymph # 0.5 L Beckham # 1.2 H Eos # 0.0 Baso # 0.0 Neutrophils % (Manual) 80 H Band Neutrophils % 2 Lymphocytes % (Manual) 5 L Reactive Lymphs % 1 H Monocytes % (Manual) 11 H Myelocytes % 1 H Platelet Estimate Markedly decreased L Large Platelets Present Giant Platelets Present Anisocytosis (manual) Slight Macrocytosis (manual) Slight Target Cells Moderate PT 14.7 H INR 1.41 H APTT 27.9 Sodium 146 Potassium 4.5 Chloride 110 H Carbon Dioxide 17 L Anion Gap 24 H BUN 24 H Creatinine 1.7 H Est GFR ( Amer) 51 Est GFR (Non-Af Amer) 42 POC Glucose (mg/dL) 181 H 203 H Random Glucose 227 H Calcium 8.5 Total Bilirubin 3.3 H AST 549 H D ALT 162 H D Alkaline Phosphatase 113 Total Creatine Kinase 3062 H Total Protein 7.0 Albumin 3.3 L Globulin 3.7 Albumin/Globulin Ratio 0.9 L 09/02/16 06:25 WBC RBC Hgb Hct MCV MCH MCHC RDW Plt Count MPV Neut % (Auto) Lymph % (Auto) Beckham % (Auto) Eos % (Auto) Baso % (Auto) Neut # Lymph # Beckham # Eos # Baso # Neutrophils % (Manual) Band Neutrophils % Lymphocytes % (Manual) Reactive Lymphs % Monocytes % (Manual) Myelocytes % Platelet Estimate Large Platelets Giant Platelets Anisocytosis (manual) Macrocytosis (manual) Target Cells PT INR APTT Sodium Potassium Chloride Carbon Dioxide Anion Gap BUN Creatinine Est GFR ( Amer) Est GFR (Non-Af Amer) POC Glucose (mg/dL) 251 H Random Glucose Calcium Total Bilirubin AST ALT Alkaline Phosphatase Total Creatine Kinase Total Protein Albumin Globulin Albumin/Globulin Ratio Assessment & Plan - Assessment and Plan (Free Text) Assessment: IMPression; Thrombocytopenia secondary to alcoholic liver disease Plan: Plan; I would just observe fo now. His count has already gone up to 60K today Because of abstinence the count should keep going up to whatever his usual count is. - Date & Time Date: 09/02/16 Time: 11:12
[2016-09-02] MEDS ORDERED: Dexmedetomidine Hydrochloride 400 MCG in Sodium Chloride 0.9% 96 ML IV ONE (20:19)
[2016-09-02] MEDS ORDERED: Chlorhexidine Gluconate 1 APPL/PKT TP ONE (20:25)
[2016-09-03] MEDS: Dexmedetomidine Hydrochloride 400 MCG in Sodium Chloride 0.9% 96 ML IV ONE ×4 (00:24→11:26)
[2016-09-03] MEDS: Clindamycin 600 MG in Sodium Chloride 0.9% 100 ML IVPB SCH ×2 (01:39→09:19)
[2016-09-03] MEDS: Sodium Bicarbonate 8.4% 80 MEQ in Dextrose 5% In Water 1,000 ML IV SCH ×3 (02:02→20:31)
[2016-09-03] MEDS: Piperacillin/Tazobact 3.375 GM in Sodium Chloride 0.9% 100 ML IVPB SCH ×2 (03:43→09:22)
[2016-09-03] MEDS: Insulin Regular 100 units/ml SC SCH ×4 (06:14→22:09)
[2016-09-03] MEDS ORDERED: Chlorhexidine Gluconate 1 APPL/PKT TP ONE ×3 (08:13→23:52)
[2016-09-03] MEDS: Multivitamin With Minerals Tab PO SCH (09:21)
--- NOTE | 2016-09-03 10:42 | PN ---
DATE: 09/03/2016 CRITICAL CARE PROGRESS NOTE LOCATION: The patient in ICU, bed 424. TIME SPENT: 45 minutes. The patient is seen and evaluated at the bedside. A 51-year-old male with a history of alcohol dependence, hypertension, chronic disease, status post a bdominal hernia repair, and bowel surgery, admitted with postictal state related to possible alcohol withdrawal seizure/delirium. Remains calm on Precedex at 1 mcg per kg per hour, IV fluids with carina l saline 175 mL per hour, on 1:1, wakeful. Remains calm. No further seizure noted. PHYSICAL EXAMINATION: CURRENT VITAL SIGNS: Temperature 100.8, heart rate 84, respiratory rate 31, thoracoabdominal blood p ressure 111/74, pulse oximetry 100%. Intake 5214, output 1030, balance positive 4184. Weight 215 po unds. HEAD, EYES, EARS, NOSE, AND THROAT: Pupils are reactive equal. No icterus. NECK: Supple. No jugular venous distention. No carotid bruit. CHEST: Bilateral breath sounds. Clear to auscultation. HEART: Rhythm regular. S1, S2 normal. No audible murmur or rub. ABDOMEN: Soft. No distention, no guarding. EXTREMITIES: No edema, no cyanosis, no tremor. NEUROLOGIC: Remains calm, mildly sedated on Precedex. SKIN: Without rash. CURRENT MEDICATIONS: Include Tylenol 650 q. 6 p.r.n., Librium 50 mg p.o. q. 8, not given due to the sedation, Precedex at 400 mcg in 100 mL at 4.87 mL per hour at 0.2 mcg per kg per hour, Pepcid 40 mg p.o. daily, folic acid 1 mg daily, Accu-Chek with regular insulin coverage, Ativan 2 mg IV q. 2 p.r.n . for agitation, Zosyn 3.375 grams IV q. 6, sodium bicarbonate 80 mEq at 175 mL per hour, thiamine 10 0 mg p.o. daily. ASSESSMENT: 1. Alcohol withdrawal syndrome, delirium tremens. 2. New onset seizure disorder secondary to EtOH withdrawal. 3. Acute respiratory insufficiency, suspected aspiration pneumonia, new temperature noted. Repeat c hest x-ray. Follow magnesium and phosphorus. 4. Abnormal liver function tests with elevated bilirubin secondary to alcohol liver disease. Contin ue on thiamine, folic acid, multivitamin. Continue IV hydration for suspected rhabdomyolysis. We w ill follow the CPK level. 5. Mild renal insufficiency. Consider renal and gastrointestinal evaluation. Lance Jones MD cc: [phone] TT: 09/03/2016 10:41:08 Confirmation # [id number] Dictation # [id number] berta
[2016-09-03 10:57] LABS: ALB/GLOB RATIO 0.8 (1.0-2.1); BILIRUBIN,TOTAL 3.5 mg/dl (0.2-1.3); CALCIUM 7.7 mg/dL (8.4-10.2); MAGNESIUM 1.6 MG/DL (1.6-2.3); PHOSPHOROUS 3.2 mg/dl (2.5-4.5); POTASSIUM 3.4 MMOL/L (3.6-5.0); TOTAL PROTEIN 6.3 G/DL (6.3-8.2)
--- NOTE | 2016-09-03 11:58 | CP.PCM.PN ---
Subjective - Date & Time of Evaluation Date of Evaluation: 09/03/16 Time of Evaluation: 11:56 - Subjective Subjective: Pt is still very lethargic secondary to the medication. No bleeding from any site. Yesterday platelets were increased to 60 . will repeat CBC tomorrow. Objective - Vital Signs/Intake and Output Vital Signs (last 24 hours): Temp Pulse Resp BP Pulse Ox 100.8 F H 82 26 H 116/75 99 09/03/16 08:00 09/03/16 11:00 09/03/16 11:00 09/03/16 11:00 09/03/16 11:00 Intake and Output: 09/03/16 09/03/16 06:59 18:59 Intake Total 2724 450 Output Total 430 Balance 2294 450 - Medications Medications: Current Medications Acetaminophen (Tylenol 650 Mg Supp) 650 mg SC Q6 PRN PRN Reason: Fever >100.4 F Last Admin: 09/03/16 09:25 Dose: 650 mg Chlordiazepoxide (Librium) 50 mg PO Q8 [facility] Last Admin: 09/03/16 09:20 Dose: Not Given Famotidine (Pepcid) 40 mg PO HS [facility] Last Admin: 09/02/16 21:18 Dose: Not Given Folic Acid (Folic Acid) 1 mg PO DAILY [facility] Last Admin: 09/03/16 09:20 Dose: Not Given Piperacillin Sod/Tazobactam (Sod 3.375 gm/ Sodium Chloride) 100 mls @ 100 mls/ hr IVPB Q6 [facility] Last Admin: 09/03/16 09:22 Dose: 100 mls/hr Clindamycin Phosphate 600 mg/ (Sodium Chloride) 104 mls @ 104 mls/hr IVPB Q8 [facility] Last Admin: 09/03/16 09:19 Dose: 104 mls/hr Sodium Bicarbonate 80 meq/ (Dextrose) 1,080 mls @ 175 mls/hr IV .Q6H11M [facility] Last Admin: 09/03/16 09:21 Dose: 175 mls/hr Dexmedetomidine HCl 400 mcg/ (Sodium Chloride) 100 mls @ 4.87 mls/hr IV .[id number] ONE; 0.2 MCG/KG/HR PRN Reason: Protocol Stop: 09/03/16 17:02 Last Admin: 09/03/16 11:26 Dose: 7.31 mls/hr Potassium Chloride (Potassium Chloride 10 Meq/100 Ml) 100 mls @ 100 mls/hr IVPB Q1 [facility] Stop: 09/03/16 14:59 Insulin Human Regular (Humulin R) 0 units SC ACCU-CHECK [facility] PRN Reason: Protocol Last Admin: 09/03/16 11:33 Dose: 6 units Lorazepam (Ativan) 2 mg IVP Q2 PRN PRN Reason: Agitation Last Admin: 09/03/16 06:59 Dose: 2 mg Multivitamins/Minerals (Therapeutic-M Tab) 1 tab PO DAILY [facility] Last Admin: 09/03/16 09:21 Dose: Not Given Thiamine HCl (Vitamin B1 Tab) 100 mg PO DAILY [facility] Last Admin: 09/03/16 09:21 Dose: Not Given - Labs Labs: 09/02/16 04:10 09/03/16 09:45 PT 14.7 SECONDS (9.6-11.2) H 09/02/16 04:10 INR 1.41 (0.92-1.08) H 09/02/16 04:10 APTT 27.9 SECONDS (23.3-32.5) 09/02/16 04:10
--- NOTE | 2016-09-03 12:21 | CP.PCM.PN ---
Subjective - Date & Time of Evaluation Date of Evaluation: 09/03/16 Time of Evaluation: 12:11 - Subjective Subjective: ID NOTE TEMP NOTED TO BE 100.8 HAS POSITIVE CULTURE FOR COAG NEG STAPH THAT COULD BE CONTAMINENT AND IS ON CLINDAMYCIN HAVE ADDED VANCOMYCIN IGM ,CHECK RANDOM LEVEL IN AM HAVE ADJUSTED DOSE OF OF ZOSYN CREATININE IS 1-6 LFTs NOTED ,PLATELETS IMPROVED(60) WILL DISCONTINUE CLINDAMYCIN Objective - Vital Signs/Intake and Output Vital Signs (last 24 hours): Temp Pulse Resp BP Pulse Ox 101.5 F H 77 13 108/66 99 09/03/16 12:07 09/03/16 12:07 09/03/16 12:07 09/03/16 12:07 09/03/16 12:07 Intake and Output: 09/03/16 09/03/16 06:59 18:59 Intake Total 2724 450 Output Total 430 Balance 2294 450 - Medications Medications: Current Medications Acetaminophen (Tylenol 650 Mg Supp) 650 mg ME Q6 PRN PRN Reason: Fever >100.4 F Last Admin: 09/03/16 09:25 Dose: 650 mg Chlordiazepoxide (Librium) 50 mg PO Q8 [facility] Last Admin: 09/03/16 09:20 Dose: Not Given Famotidine (Pepcid) 40 mg PO HS [facility] Last Admin: 09/02/16 21:18 Dose: Not Given Folic Acid (Folic Acid) 1 mg PO DAILY [facility] Last Admin: 09/03/16 09:20 Dose: Not Given Clindamycin Phosphate 600 mg/ (Sodium Chloride) 104 mls @ 104 mls/hr IVPB Q8 [facility] Last Admin: 09/03/16 09:19 Dose: 104 mls/hr Sodium Bicarbonate 80 meq/ (Dextrose) 1,080 mls @ 175 mls/hr IV .Q6H11M [facility] Last Admin: 09/03/16 09:21 Dose: 175 mls/hr Dexmedetomidine HCl 400 mcg/ (Sodium Chloride) 100 mls @ 4.87 mls/hr IV .[id number] ONE; 0.2 MCG/KG/HR PRN Reason: Protocol Stop: 09/03/16 17:02 Last Admin: 09/03/16 11:26 Dose: 7.31 mls/hr Potassium Chloride (Potassium Chloride 10 Meq/100 Ml) 100 mls @ 100 mls/hr IVPB Q1 [facility] Stop: 09/03/16 14:59 Insulin Human Regular (Humulin R) 0 units SC ACCU-CHECK [facility] PRN Reason: Protocol Last Admin: 09/03/16 11:33 Dose: 6 units Lorazepam (Ativan) 2 mg IVP Q2 PRN PRN Reason: Agitation Last Admin: 09/03/16 06:59 Dose: 2 mg Multivitamins/Minerals (Therapeutic-M Tab) 1 tab PO DAILY [facility] Last Admin: 09/03/16 09:21 Dose: Not Given Thiamine HCl (Vitamin B1 Tab) 100 mg PO DAILY [facility] Last Admin: 09/03/16 09:21 Dose: Not Given - Labs Labs: 09/02/16 04:10 09/03/16 09:45 PT 14.7 SECONDS (9.6-11.2) H 09/02/16 04:10 INR 1.41 (0.92-1.08) H 09/02/16 04:10 APTT 27.9 SECONDS (23.3-32.5) 09/02/16 04:10
[2016-09-03] MEDS: Potassium CL 10mEq/100ml 100 ML IVPB SCH ×3 (12:48→14:55)
--- NOTE | 2016-09-03 13:39 | CARD ---
APPROVED REPORT EXAM: Two-dimensional and M-mode echocardiogram with Doppler and color Doppler. Other Information Quality : GoodRhythm : NSR INDICATION Infection: 2D DIMENSIONS IVSd0.86 (0.7-1.1cm)LVDd5.67 (3.9-5.9cm) LVOT Diameter2.10 (1.8-2.4cm)PWd0.79 (0.7-1.1cm) IVSs1.21 (0.8-1.2cm)LVDs4.60 (2.5-4.0cm) FS (%) 18.8 %PWs1.22 (0.8-1.2cm) M-Mode DIMENSIONS Left Atrium (MM)5.29 (2.5-4.0cm)IVSd0.76 (0.7-1.1cm) Aortic Root2.94 (2.2-3.7cm)LVDd6.22 (4.0-5.6cm) Aortic Cusp Exc.2.18 (1.5-2.0cm)PWd0.66 (0.7-1.1cm) IVSs1.06 cmFS (%) 18 % LVDs5.10 (2.0-3.8cm)PWs1.22 cm Mitral Valve E/A ratio0.0 TDI E/Lateral E'0.0E/Medial E'0.0 Pulmonary Valve PV Peak Xwogyuxg64.1cm/s Tricuspid Valve TR Peak [id number]/sRAP [id number] Peak Gr.18mmHg [id number] LEFT VENTRICLE The Left Ventricle is mildly dilated. There is normal left ventricular wall thickness. Left ventricle systolic function is severely impaired. The Ejection Fraction is - 15-20%. generalized severe LV hypokinesia Transmitral Doppler flow pattern is Grade II-pseudonormal filling dynamics. No left ventricle thrombus noted on this study. There is no ventricular septal defect visualized. There is no left ventricular aneurysm. There is no mass noted in the left ventricle. RIGHT VENTRICLE The right ventricle is normal size. There is normal right ventricular wall thickness. The right ventricular systolic function is normal. ATRIA The left atrium is mildly dilated. There is no thrombus suspected in the left atrium. The right atrium size is normal. The interatrial septum is intact with no evidence for an atrial septal defect. AORTIC VALVE The aortic valve is normal in structure and function. No aortic regurgitation is present. There is no aortic valvular stenosis. MITRAL VALVE The mitral valve is normal in structure and function. There is no evidence of mitral valve prolapse. There is no mitral valve stenosis. Mitral regurgitation is severe. TRICUSPID VALVE The tricuspid valve is normal in structure and function. There is mild to moderate tricuspid regurgitation. Right ventricular systolic pressure is estimated at 29 mmHg. There is no tricuspid valve prolapse or vegetation. There is no tricuspid valve stenosis. PULMONIC VALVE The pulmonary valve is normal in structure and function. There is trace to mild pulmonic valvular regurgitation. GREAT VESSELS The aortic root is normal in size. The IVC collapses <50% with inspiration. PERICARDIAL EFFUSION The pericardium appears normal. There is no pleural effusion. <Conclusion> The Left Ventricle is mildly dilated. There is normal left ventricular wall thickness. Left ventricle systolic function is severely impaired. The Ejection Fraction is - 15-20%. The left atrium is mildly dilated. The mitral, aortic and tricuspid valves are normal. There is severe mitral regurgitation and mild to moderate tricuspid regurgitation.
[2016-09-03] MEDS ORDERED: Sodium Bicarbonate 8.4% 80 MEQ in Dextrose 5% In Water 1,000 ML IV SCH (15:45)
--- NOTE | 2016-09-03 21:40 | PN ---
DATE: 09/03/2016 SUBJECTIVE: The patient is seen today 09/03/2016. He is still sedated on the drip of dexmedetomidine . The patient is on sodium bicarbonate drip. PHYSICAL EXAMINATION: VITAL SIGNS: Blood pressure today is 111/74, temperature 100.8, respiratory rate 30, and pulse 84. HEENT: Pupils equal, reactive to light. Normal-appearing mucosa of the conjunctivae. NECK: Supple, no JVD, no carotid bruit, no lymph node, no thyromegaly. CHEST AND LUNGS: Bilateral symmetrical expansion, good air exchange, no rales, no rhonchi. CARDIOVASCULAR: PMI not localized. S1, S2. No additional sounds. ABDOMEN: Normoactive bowel sounds, no tenderness, no organomegaly, no masses. EXTREMITIES: No cyanosis, no clubbing, no edema. CENTRAL NERVOUS SYSTEM: The patient is currently sedated. LABORATORY DATA: Blood work today showed elevation of the bicarb to 25 and creatinine is down to 1.6 . Liver enzymes are elevated. PLAN: We will decrease sodium bicarbonate to 100 mL per renal, renal consult, hepatology consu lt. Continue Accu-Cheks with insulin coverage, adjust antibiotics as per ID, as patient has Staphylo coccus coagulase negative bacteremia and currently patient has fever, supplement potassium. Canelo Ellison MD cc: 167 TT: 09/03/2016 21:40:08 Confirmation # [id number] Dictation # [id number] [id number]
--- NOTE | 2016-09-03 21:54 | PN ---
DATE: 09/02/2016 The patient is still in intensive care unit, and he has been sedated on oral dexmedetomidine drip, an d he is being given Ativan as needed for agitation and tachycardia. Blood pressure was 112/76, temperature 99.6, respiratory rate 18, and pulse 113. HEENT: Pupils equal, reacts to light. Normal-appearing mucosa of the conjunctivae, oropharyngeal, a nd nasal membrane mucosa. NECK: Supple, no JVD, no carotid bruit, no lymph node, no thyromegaly. CHEST AND LUNGS: Bilateral symmetrical expansion. Good air exchange. A few basilar rales. CARDIOVASCULAR SYSTEM: PMI not localized. S1, S2. No additional sounds. ABDOMEN: Normoactive bowel sounds, no tenderness, no organomegaly, no masses. EXTREMITIES: No cyanosis, no clubbing, no edema. CENTRAL NERVOUS SYSTEM: The patient is sedated. Blood work on 09/02/2016, showed that the patient has decreased bicarbonate to 17, with a high anion gap of 24, and elevated CPK to 3062, and elevated liver enzymes also. Chest x-ray showed improving right lower lobe infiltrate. 1. ASSESSMENT: Alcohol withdrawal with impending delirium tremens. Currently, the patient is well s edated on dexmedetomidine drip. 2. Rhabdomyolysis. 3. High anion gap metabolic acidosis. 4. Acute elevation of BUN and creatinine, with serum creatinine 1.7 and a BUN of 24. PLAN: 1. The patient with started by fuel house attendant on sodium bicarb IV fluid. We will continue the drip dex medetomidine. 2. We will continue monitoring the patient in the intensive care unit, and monitor liver enzymes and electrolytes. Canelo Ellison MD cc: [phone] TT: 09/03/2016 21:54:01 Confirmation # [id number] Dictation # [id number] berta
[2016-09-04] MEDS ORDERED: Metoprolol 1 mg/ml Inj IVP ONE (05:10)
--- NOTE | 2016-09-04 05:13 | CP.PCM.PCO ---
Physician Communication Note - Physician Communication Note Physician Communication Note: BP 192/123mmHg and HR 130/min: Metoprolol 5mg IVP ordered.
[2016-09-04] MEDS: Insulin Regular 100 units/ml SC SCH ×4 (06:30→22:07)
[2016-09-04] MEDS: Sodium Bicarbonate 8.4% 80 MEQ in Dextrose 5% In Water 1,000 ML IV SCH (06:31)
[2016-09-04 06:42] LABS: HEMATOCRIT 43.6 % (35.0-51.0); MEAN CELL VOLUME 95.6 fl (80.0-94.0); MEAN CORPUSCULAR HEMOGLOBIN 31.3 pg (27.0-31.0); MEAN CORPUSCULAR HGB CONC 32.8 g/dL (33.0-37.0); RED CELL DISTRIBUTION WIDTH 15.4 % (11.5-14.5); WHITE BLOOD COUNT 13.3 K/uL (4.8-10.8)
[2016-09-04 07:13] LABS: ALB/GLOB RATIO 0.8 (1.0-2.1); ALKALINE PHOSPHATASE 111 U/L (38-126); ALT/SGPT 527 U/L (21-72); BLOOD UREA NITROGEN 20 mg/dl (9-20); CALCIUM 8.1 mg/dL (8.4-10.2); CARBON DIOXIDE 26 mmol/L (22-30); CHLORIDE 103 mmol/L (98-107); GFR AFRICAN-AMERICAN > 60; GLUCOSE,RANDOM 256 mg/dL (75-110); POTASSIUM 3.4 MMOL/L (3.6-5.0); SODIUM 145 mmol/l (132-148)
[2016-09-04 07:25] LABS: AST/SGOT 951 U/L (17-59)
--- NOTE | 2016-09-04 07:33 | CP.PCM.CON ---
History of Present Illness - History of Present Illness History of Present Illness: Asked by Dr. Ellison for a GI consultation on this patient. 51 year old male with history of DM, HTN, ETOH abuse who was initially brought to hospital after witnessed seizure activity at home by family member. He is currently in ICU critical care, sedated, restrained secondary to agitation with impending delerium tremens secondary to ETOH withdrawal. GI called for evaluation of elevated LFTs. Patient is currently sedated, unable to participate in any meaningful conversation and therefore additional information obtained via chart review, discussion with nursing staff and patient family members. He typically drinks 6-8 beers every other day but recently has not been drinking due to viral illness with flu-like symptoms. There was no reported abdominal pain, nausea, vomiting, diarrhea, weight loss, rectal bleeding, jaundice, pruritis, or herbal medication use. No prior endoscopic history. Social history: non-smoker, + ETOH abuse as mentioned above Family history: reviewed, no family history of colon cancer Review of Systems - Review of Systems Systems not reviewed;Unavailable: Altered Mental Status Review of Systems: patient sedated Past Patient History - Past Medical History & Family History Past Medical History?: Yes - Past Social History Smoking Status: Former Smoker - CARDIAC Hx Cardiac Disorders: Yes Hx Hypertension: Yes - PULMONARY Hx Respiratory Disorders: No - NEUROLOGICAL Hx Neurological Disorder: Yes Hx Seizures: Yes - HEENT Hx HEENT Problems: No - RENAL Hx Chronic Kidney Disease: No - ENDOCRINE/METABOLIC Hx Endocrine Disorders: Yes Hx Diabetes Mellitus Type 2: Yes - HEMATOLOGICAL/ONCOLOGICAL Hx Blood Disorders: No Hx AIDS: No Hx Human Immunodeficiency Virus (HIV): No - INTEGUMENTARY Hx Dermatological Problems: No - MUSCULOSKELETAL/RHEUMATOLOGICAL Hx Musculoskeletal Disorders: Yes Hx Falls: Yes (fell last night on the back from the couch) - GASTROINTESTINAL Hx Gastrointestinal Disorders: Yes Hx Crohn's Disease: Yes Other/Comment: LEFT AABDOMINAL HERNIA - GENITOURINARY/GYNECOLOGICAL Hx Genitourinary Disorders: No - PSYCHIATRIC Hx Psychophysiologic Disorder: Yes Hx Substance Use: Yes (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.) - SURGICAL HISTORY Hx Surgeries: Yes Other/Comment: BOWEL RESECTION 1989, APPENDECTOMY 1983 - ANESTHESIA Hx Anesthesia: Yes Hx Anesthesia Reactions: No Hx Malignant Hyperthermia: No Has any member of the family had a problem w/ anesthesia?: No Meds Allergies/Adverse Reactions: Allergies Allergy/AdvReac Type Severity Reaction Status Date / Time ibuprofen [From Motrin] AdvReac NAUSEA Verified 08/30/16 02:45 - Medications Medications: Current Medications Acetaminophen (Tylenol 650 Mg Supp) 650 mg [place] Q6 PRN PRN Reason: Fever >100.4 F Last Admin: 09/04/16 00:53 Dose: 650 mg Chlordiazepoxide (Librium) 50 mg PO Q8 [facility] Last Admin: 09/04/16 01:00 Dose: 50 mg Famotidine (Pepcid) 40 mg PO HS [facility] Last Admin: 09/03/16 21:48 Dose: 40 mg Folic Acid (Folic Acid) 1 mg PO DAILY [facility] Sodium Bicarbonate 80 meq/ (Dextrose) 1,080 mls @ 100 mls/hr IV .[id number] [facility] Last Admin: 09/04/16 06:31 Dose: 100 mls/hr Piperacillin Sod/Tazobactam (Sod 2.25 gm/ Sodium Chloride) 100 mls @ 100 mls/ hr IVPB Q8 [facility] Last Admin: 09/04/16 00:55 Dose: 100 mls/hr Insulin Human Regular (Humulin R) 0 units SC ACCU-CHECK [facility] PRN Reason: Protocol Last Admin: 09/04/16 06:30 Dose: 3 units Lorazepam (Ativan) 2 mg IVP Q2 PRN PRN Reason: Agitation Last Admin: 09/04/16 03:41 Dose: 2 mg Multivitamins/Minerals (Therapeutic-M Tab) 1 tab PO DAILY [facility] Thiamine HCl (Vitamin B1 Tab) 100 mg PO DAILY [facility] Physical Exam - Constitutional Appears: Non-toxic, No Acute Distress - Head Exam Head Exam: NORMAL INSPECTION - Eye Exam Eye Exam: Normal appearance, PERRL - ENT Exam ENT Exam: Mucous Membranes Dry - Respiratory Exam Respiratory Exam: Clear to Auscultation Bilateral - Cardiovascular Exam Cardiovascular Exam: REGULAR RHYTHM, +S1, +S2 - GI/Abdominal Exam GI & Abdominal Exam: Hernia, Normal Bowel Sounds, Soft Additional comments: non tender to palpation in four quadrants no palpable hepato/splenomegaly + midline surgical scar, + ventral hernia - Extremities Exam Extremities exam: Positive for: normal inspection - Neurological Exam Additional comments: Patient unable to participate in neurological examination - Psychiatric Exam Additional comments: Unable to assess, patient unable to participate in exam - Skin Skin Exam: Dry, Intact, Normal Color, Warm Results - Vital Signs Recent Vital Signs: Last Vital Signs Temp 100 F H 09/04/16 06:00 Pulse 97 H 09/04/16 06:00 Resp 20 09/04/16 06:00 BP 147/75 09/04/16 06:00 Pulse Ox 97 09/04/16 06:00 - Labs Result Diagrams: 09/04/16 05:15 09/03/16 09:45 Labs: Laboratory Results - last 24 hr 09/03/16 09/03/16 09/03/16 09:45 11:32 12:15 WBC RBC Hgb Hct MCV MCH MCHC RDW Plt Count Sodium 144 Potassium 3.4 L Chloride 104 Carbon Dioxide 25 Anion Gap 18 BUN 30 H Creatinine 1.6 H Est GFR ( Amer) 55 Est GFR (Non-Af Amer) 45 POC Glucose (mg/dL) 329 H Random Glucose 318 H Calcium 7.7 L Phosphorus 3.2 Magnesium 1.6 Total Bilirubin 3.5 H AST 1234 H ALT 495 H D Alkaline Phosphatase 94 Total Creatine Kinase 1259 H Total Protein 6.3 Albumin 2.8 L Globulin 3.5 Albumin/Globulin Ratio 0.8 L Procalcitonin 1.70 H Hepatitis A IgM Ab Hep Bs Antigen Hep B Core IgM Ab Hepatitis C Antibody 09/03/16 09/03/16 09/03/16 16:43 17:19 21:50 WBC RBC Hgb Hct MCV MCH MCHC RDW Plt Count Sodium Potassium Chloride Carbon Dioxide Anion Gap BUN Creatinine Est GFR ( Amer) Est GFR (Non-Af Amer) POC Glucose (mg/dL) 303 H 232 H Random Glucose Calcium Phosphorus Magnesium Total Bilirubin AST ALT Alkaline Phosphatase Total Creatine Kinase Total Protein Albumin Globulin Albumin/Globulin Ratio Procalcitonin Hepatitis A IgM Ab Negative Hep Bs Antigen Negative Hep B Core IgM Ab Negative Hepatitis C Antibody Negative 09/04/16 09/04/16 04:54 05:15 WBC 13.3 H D RBC 4.56 Hgb 14.3 Hct 43.6 MCV 95.6 H MCH 31.3 H MCHC 32.8 L RDW 15.4 H Plt Count 67 L Sodium Potassium Chloride Carbon Dioxide Anion Gap BUN Creatinine Est GFR ( Amer) Est GFR (Non-Af Amer) POC Glucose (mg/dL) 201 H Random Glucose Calcium Phosphorus Magnesium Total Bilirubin AST ALT Alkaline Phosphatase Total Creatine Kinase Total Protein Albumin Globulin Albumin/Globulin Ratio Procalcitonin Hepatitis A IgM Ab Hep Bs Antigen Hep B Core IgM Ab Hepatitis C Antibody Assessment & Plan - Assessment and Plan (Free Text) Assessment: DM / HTN Transaminitis in setting of ETOH abuse - viral hepatitis panel negative Seizure, ETOH withdrawal Bacteremia Acute renal insufficiency Plan: - Full liquid diet as tolerated, strict aspiration precautions with head of bed elevated during attempted feeding - Elevated LFTs likely multifactorial in setting of ETOH abuse (likely cirrhosis ), rhabdomyolysis (elevated CK with h/o recent seizure), sepsis with antibiotic use - Obtain abdominal US and autoimmune panel - Continue to monitor LFTs, fractionate bilirubin - Follow up ID recommendations, only 1 blood culture bottle positive (? contaminant), would repeat cultures. Antibiotic dose has been renally adjusted given acute renal insufficiency. - Monitor urine output, obtain urine electrolytes, await renal recommendations - Further ETOH withdrawal therapy as per critical care team - ETOH cessation counseling - Patient would benefit from dedicated cross sectional liver imaging following improvement in mental status and kidney function - Overall prognosis guarded, will continue to monitor patient clinical course
--- NOTE | 2016-09-04 08:26 | CP.PCM.CON ---
History of Present Illness - History of Present Illness History of Present Illness: REASONS FOR CONSULT : NONA WITH CREAT REACHING UP TO 1.6 HYPONATREMIA ON ADDMISION NA WAS 130 NOW HYPERNATREMIA WITH NA 144 HYPOKALEMIA MILD RHABDOMOILYSIS CHART REVIEWED ,LABS REVIEWED THOUROUGHLY .. PT WAS SEEN AND EXAMINED IN ICU PT WAS ADDMITED ON Aug FOR SIEZURE AND ETOH WITHDRAWAL SYNDROME ,, CAME IN WITH NORMAL RENAL FUNCTION.. 51yo male with PMHx including HTN and Crohn's disease presents to the ED s/p seizure. Patient states he drinks 6 pack of beer and whiskey everyday and reports he has had flu-like symptoms for 2 weeks and has been recently cutting back on the whiskey. According to EMS, reported 1 episode of tonic-clonic seizure that was less than 5 minutes witnessed by her. She noted postictal period and when EMS arrived patient's bp was elevated and he was tachycardic. Patient does not remember episode and last thing he remembers was falling asleep. Past Patient History - Past Medical History & Family History Past Medical History?: Yes - Past Social History Smoking Status: Former Smoker - CARDIAC Hx Cardiac Disorders: Yes Hx Hypertension: Yes - PULMONARY Hx Respiratory Disorders: No - NEUROLOGICAL Hx Neurological Disorder: Yes Hx Seizures: Yes - HEENT Hx HEENT Problems: No - RENAL Hx Chronic Kidney Disease: No - ENDOCRINE/METABOLIC Hx Endocrine Disorders: Yes Hx Diabetes Mellitus Type 2: Yes - HEMATOLOGICAL/ONCOLOGICAL Hx Blood Disorders: No Hx AIDS: No Hx Human Immunodeficiency Virus (HIV): No - INTEGUMENTARY Hx Dermatological Problems: No - MUSCULOSKELETAL/RHEUMATOLOGICAL Hx Musculoskeletal Disorders: Yes Hx Falls: Yes (fell last night on the back from the couch) - GASTROINTESTINAL Hx Gastrointestinal Disorders: Yes Hx Crohn's Disease: Yes Other/Comment: LEFT AABDOMINAL HERNIA - GENITOURINARY/GYNECOLOGICAL Hx Genitourinary Disorders: No - PSYCHIATRIC Hx Psychophysiologic Disorder: Yes Hx Substance Use: Yes (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.) - SURGICAL HISTORY Hx Surgeries: Yes Other/Comment: BOWEL RESECTION 1989, APPENDECTOMY 1983 - ANESTHESIA Hx Anesthesia: Yes Hx Anesthesia Reactions: No Hx Malignant Hyperthermia: No Has any member of the family had a problem w/ anesthesia?: No Meds Allergies/Adverse Reactions: Allergies Allergy/AdvReac Type Severity Reaction Status Date / Time ibuprofen [From Motrin] AdvReac NAUSEA Verified 08/30/16 02:45 - Medications Medications: Current Medications Acetaminophen (Tylenol 650 Mg Supp) 650 mg [place] Q6 PRN PRN Reason: Fever >100.4 F Last Admin: 09/04/16 00:53 Dose: 650 mg Chlordiazepoxide (Librium) 50 mg PO Q8 [facility] Last Admin: 09/04/16 01:00 Dose: 50 mg Famotidine (Pepcid) 40 mg PO HS [facility] Last Admin: 09/03/16 21:48 Dose: 40 mg Folic Acid (Folic Acid) 1 mg PO DAILY [facility] Piperacillin Sod/Tazobactam (Sod 2.25 gm/ Sodium Chloride) 100 mls @ 100 mls/ hr IVPB Q8 [facility] Last Admin: 09/04/16 00:55 Dose: 100 mls/hr Potassium Chloride 20 meq/ (Dextrose/Sodium Chloride) 1,010 mls @ 100 mls/hr IV .Q10H6M [facility] Insulin Human Regular (Humulin R) 0 units SC ACCU-CHECK [facility] PRN Reason: Protocol Last Admin: 09/04/16 06:30 Dose: 3 units Lorazepam (Ativan) 2 mg IVP Q2 PRN PRN Reason: Agitation Last Admin: 09/04/16 03:41 Dose: 2 mg Multivitamins/Minerals (Therapeutic-M Tab) 1 tab PO DAILY [facility] Thiamine HCl (Vitamin B1 Tab) 100 mg PO DAILY [facility] Results - Vital Signs Recent Vital Signs: Last Vital Signs Temp 100 F H 09/04/16 06:00 Pulse 97 H 09/04/16 06:00 Resp 20 09/04/16 06:00 BP 147/75 09/04/16 06:00 Pulse Ox 97 09/04/16 06:00 - Labs Result Diagrams: 09/04/16 05:15 09/04/16 05:15 Labs: Laboratory Results - last 24 hr 09/03/16 09/03/16 09/03/16 09:45 11:32 12:15 WBC RBC Hgb Hct MCV MCH MCHC RDW Plt Count PT INR Sodium 144 Potassium 3.4 L Chloride 104 Carbon Dioxide 25 Anion Gap 18 BUN 30 H Creatinine 1.6 H Est GFR ( Amer) 55 Est GFR (Non-Af Amer) 45 POC Glucose (mg/dL) 329 H Random Glucose 318 H Calcium 7.7 L Phosphorus 3.2 Magnesium 1.6 Total Bilirubin 3.5 H Direct Bilirubin AST 1234 H ALT 495 H D Alkaline Phosphatase 94 Total Creatine Kinase 1259 H Total Protein 6.3 Albumin 2.8 L Globulin 3.5 Albumin/Globulin Ratio 0.8 L Procalcitonin 1.70 H Random Vancomycin Hepatitis A IgM Ab Hep Bs Antigen Hep B Core IgM Ab Hepatitis C Antibody 09/03/16 09/03/16 09/03/16 16:43 17:19 21:50 WBC RBC Hgb Hct MCV MCH MCHC RDW Plt Count PT INR Sodium Potassium Chloride Carbon Dioxide Anion Gap BUN Creatinine Est GFR ( Amer) Est GFR (Non-Af Amer) POC Glucose (mg/dL) 303 H 232 H Random Glucose Calcium Phosphorus Magnesium Total Bilirubin Direct Bilirubin AST ALT Alkaline Phosphatase Total Creatine Kinase Total Protein Albumin Globulin Albumin/Globulin Ratio Procalcitonin Random Vancomycin Hepatitis A IgM Ab Negative Hep Bs Antigen Negative Hep B Core IgM Ab Negative Hepatitis C Antibody Negative 09/04/16 09/04/16 04:54 05:15 WBC 13.3 H D RBC 4.56 Hgb 14.3 Hct 43.6 MCV 95.6 H MCH 31.3 H MCHC 32.8 L RDW 15.4 H Plt Count 67 L PT 17.3 H INR 1.66 H Sodium 145 Potassium 3.4 L Chloride 103 Carbon Dioxide 26 Anion Gap 19 BUN 20 Creatinine 1.1 Est GFR ( Amer) > 60 Est GFR (Non-Af Amer) > 60 POC Glucose (mg/dL) 201 H Random Glucose 256 H Calcium 8.1 L Phosphorus Magnesium Total Bilirubin 4.0 H Direct Bilirubin 2.6 H AST 951 H D ALT 527 H Alkaline Phosphatase 111 Total Creatine Kinase 2042 H Total Protein 7.0 Albumin 3.1 L Globulin 3.8 Albumin/Globulin Ratio 0.8 L Procalcitonin Random Vancomycin 5.7 Hepatitis A IgM Ab Hep Bs Antigen Hep B Core IgM Ab Hepatitis C Antibody Assessment & Plan - Assessment and Plan (Free Text) Assessment: s/p nona .. renal function better s/p hyponatremia upon admission .. now hypernatremia probably 2/2 zosyn administration hypokalemia multiple co morbidities related to alcoholism p : neff ivf to d5 1/2 + 20 meq kcl to run at 100 cc / h f/u serial lyts and renal function - Date & Time Date: 09/04/16 Time: 08:00
[2016-09-04] MEDS: Multivitamin With Minerals Tab PO SCH (09:05)
--- NOTE | 2016-09-04 11:16 | RAD ---
HISTORY: aspiration pneumonia COMPARISON: Chest x-ray performed 09/01/16 TECHNIQUE: Chest, one view. FINDINGS: External wires and leads obscure evaluation of the underlying parenchyma. Examination limited by habitus. LUNGS: Increasing right lower lobe infiltrate. No significant pleural effusion. No definite pneumothorax. Please note that chest x-ray has limited sensitivity for the detection of pulmonary masses. CARDIOVASCULAR: Cardiomegaly. OSSEOUS STRUCTURES: No acute osseous abnormality identified. VISUALIZED UPPER ABDOMEN: Unremarkable. OTHER FINDINGS: None. IMPRESSION: Increasing right lower lobe infiltrate. Cardiomegaly.
--- NOTE | 2016-09-04 11:55 | CP.PCM.CON ---
History of Present Illness - History of Present Illness History of Present Illness: Full Note Dictated Congestive Cardiomyopathy (ETOH induced) Chr ETOH abuse with seizure (?? DTs) H/O Hypertension Stable from cardiac point of view Past Patient History - Past Medical History & Family History Past Medical History?: Yes - Past Social History Smoking Status: Former Smoker - CARDIAC Hx Cardiac Disorders: Yes Hx Hypertension: Yes - PULMONARY Hx Respiratory Disorders: No - NEUROLOGICAL Hx Neurological Disorder: Yes Hx Seizures: Yes - HEENT Hx HEENT Problems: No - RENAL Hx Chronic Kidney Disease: No - ENDOCRINE/METABOLIC Hx Endocrine Disorders: Yes Hx Diabetes Mellitus Type 2: Yes - HEMATOLOGICAL/ONCOLOGICAL Hx Blood Disorders: No Hx AIDS: No Hx Human Immunodeficiency Virus (HIV): No - INTEGUMENTARY Hx Dermatological Problems: No - MUSCULOSKELETAL/RHEUMATOLOGICAL Hx Musculoskeletal Disorders: Yes Hx Falls: Yes (fell last night on the back from the couch) - GASTROINTESTINAL Hx Gastrointestinal Disorders: Yes Hx Crohn's Disease: Yes Other/Comment: LEFT AABDOMINAL HERNIA - GENITOURINARY/GYNECOLOGICAL Hx Genitourinary Disorders: No - PSYCHIATRIC Hx Psychophysiologic Disorder: Yes Hx Substance Use: Yes (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.) - SURGICAL HISTORY Hx Surgeries: Yes Other/Comment: BOWEL RESECTION 1989, APPENDECTOMY 1983 - ANESTHESIA Hx Anesthesia: Yes Hx Anesthesia Reactions: No Hx Malignant Hyperthermia: No Has any member of the family had a problem w/ anesthesia?: No Meds Allergies/Adverse Reactions: Allergies Allergy/AdvReac Type Severity Reaction Status Date / Time ibuprofen [From Motrin] AdvReac NAUSEA Verified 08/30/16 02:45 - Medications Medications: Current Medications Acetaminophen (Tylenol 650 Mg Supp) 650 mg [place] Q6 PRN PRN Reason: Fever >100.4 F Last Admin: 09/04/16 00:53 Dose: 650 mg Chlordiazepoxide (Librium) 50 mg PO Q8 [facility] Last Admin: 09/04/16 09:04 Dose: 50 mg Famotidine (Pepcid) 40 mg PO HS [facility] Last Admin: 09/03/16 21:48 Dose: 40 mg Folic Acid (Folic Acid) 1 mg PO DAILY [facility] Last Admin: 09/04/16 09:05 Dose: 1 mg Piperacillin Sod/Tazobactam (Sod 2.25 gm/ Sodium Chloride) 100 mls @ 100 mls/ hr IVPB Q8 [facility] Last Admin: 09/04/16 09:06 Dose: 100 mls/hr Potassium Chloride/Dextrose/Sod Cl (Potassium Chl 20 Meq In D5-1/2ns) 1,000 mls @ 99.01 mls/hr IV .Q10H6M [facility] Vancomycin HCl 750 mg/ Sodium (Chloride) 250 mls @ 166.667 mls/hr IVPB Q12 [facility] Potassium Chloride (Potassium Chloride 10 Meq/100 Ml) 100 mls @ 100 mls/hr IVPB Q1 [facility] Stop: 09/04/16 13:59 Insulin Human Regular (Humulin R) 0 units SC ACCU-CHECK [facility] PRN Reason: Protocol Last Admin: 09/04/16 06:30 Dose: 3 units Lorazepam (Ativan) 2 mg IVP Q2 PRN PRN Reason: Agitation Last Admin: 09/04/16 09:04 Dose: 2 mg Metoprolol Tartrate (Lopressor) 12.5 mg PO Q12 [facility] Multivitamins/Minerals (Therapeutic-M Tab) 1 tab PO DAILY [facility] Last Admin: 09/04/16 09:05 Dose: 1 tab Thiamine HCl (Vitamin B1 Tab) 100 mg PO DAILY [facility] Last Admin: 09/04/16 09:06 Dose: 100 mg Results - Vital Signs Recent Vital Signs: Last Vital Signs Temp 100.1 F H 09/04/16 08:00 Pulse 100 H 09/04/16 09:59 Resp 31 H 09/04/16 09:59 BP 135/83 09/04/16 09:59 Pulse Ox 100 09/04/16 09:59 - Labs Result Diagrams: 09/04/16 05:15 09/04/16 05:15 Labs: Laboratory Results - last 24 hr 09/03/16 09/03/16 09/03/16 11:32 12:15 16:43 WBC RBC Hgb Hct MCV MCH MCHC RDW Plt Count PT INR Sodium Potassium Chloride Carbon Dioxide Anion Gap BUN Creatinine Est GFR ( Amer) Est GFR (Non-Af Amer) POC Glucose (mg/dL) 329 H Random Glucose Calcium Total Bilirubin Direct Bilirubin AST ALT Alkaline Phosphatase Total Creatine Kinase Total Protein Albumin Globulin Albumin/Globulin Ratio Procalcitonin 1.70 H Random Vancomycin Hepatitis A IgM Ab Negative Hep Bs Antigen Negative Hep B Core IgM Ab Negative Hepatitis C Antibody Negative 09/03/16 09/03/16 09/04/16 17:19 21:50 04:54 WBC RBC Hgb Hct MCV MCH MCHC RDW Plt Count PT INR Sodium Potassium Chloride Carbon Dioxide Anion Gap BUN Creatinine Est GFR ( Amer) Est GFR (Non-Af Amer) POC Glucose (mg/dL) 303 H 232 H 201 H Random Glucose Calcium Total Bilirubin Direct Bilirubin AST ALT Alkaline Phosphatase Total Creatine Kinase Total Protein Albumin Globulin Albumin/Globulin Ratio Procalcitonin Random Vancomycin Hepatitis A IgM Ab Hep Bs Antigen Hep B Core IgM Ab Hepatitis C Antibody 09/04/16 09/04/16 05:15 10:51 WBC 13.3 H D RBC 4.56 Hgb 14.3 Hct 43.6 MCV 95.6 H MCH 31.3 H MCHC 32.8 L RDW 15.4 H Plt Count 67 L PT 17.3 H INR 1.66 H Sodium 145 Potassium 3.4 L Chloride 103 Carbon Dioxide 26 Anion Gap 19 BUN 20 Creatinine 1.1 Est GFR ( Amer) > 60 Est GFR (Non-Af Amer) > 60 POC Glucose (mg/dL) 240 H Random Glucose 256 H Calcium 8.1 L Total Bilirubin 4.0 H Direct Bilirubin 2.6 H AST 951 H D ALT 527 H Alkaline Phosphatase 111 Total Creatine Kinase 2042 H Total Protein 7.0 Albumin 3.1 L Globulin 3.8 Albumin/Globulin Ratio 0.8 L Procalcitonin Random Vancomycin 5.7 Hepatitis A IgM Ab Hep Bs Antigen Hep B Core IgM Ab Hepatitis C Antibody
--- NOTE | 2016-09-04 12:24 | PN ---
DATE: 09/04/2016 CRITICAL CARE PROGRESS NOTE LOCATION: The patient in room 424, ICU. TIME SPENT: 35 minutes. The patient is seen and evaluated at the bedside. A 51-year-old male with a history significant for alcohol dependence, hypertension, alcohol-related l iver disease, status post abdominal hernia repair and bowel surgery, admitted with postictal state re lated to possible alcohol withdrawal seizure/delirium. MRI of brain report pending. CT showed atrop hy of the brain. No acute cerebrovascular accident. Overnight on Precedex at 0.3 mcg per kg per brodie r, weaned off the medication. Currently, on IV fluid D5 half normal at 100 mL per hour. Remains wak eful, on 1:1 observation. Able to tolerate p.o. Librium and p.r.n. Ativan. No further seizures note d. PHYSICAL EXAMINATION: VITAL SIGNS: Temperature 100.1, heart rate 100 regular, blood pressure 135/83, respiratory rate 31, thoracoabdominal, saturating 100% oxygen 2 liters nasal cannula. Intake of 4193, output 1650, positi ve balance 2543. HEAD, EYES, EARS, NOSE, AND THROAT: Pupils are reactive. Conjunctivae are pink. No nystagmus. NECK: Supple. CHEST: Bilateral breath sounds. Clear to auscultation anteriorly and laterally. HEART: Rhythm regular. S1, S2 normal. No audible rub. ABDOMEN: Bowel sounds present, soft. EXTREMITIES: No edema. NEUROLOGIC: Remains mildly sedated on Librium and Ativan p.r.n. wakeful. SKIN: Without any rash. CURRENT MEDICATIONS: Include Tylenol 650 q. 6 p.r.n., Librium 50 mg p.o. q. 8, Pepcid 40 p.o. at bed time, folic acid 1 mg daily, Accu-Chek with regular insulin coverage, lorazepam 2 mg IV q. 2 p.r.n., multivitamin tablet daily, Zosyn 2.25 grams q. 8 hours, potassium chloride supplement, vancomycin 750 mg IV q. 12. LABORATORY DATA: WBC 13.3, hemoglobin 14.3, hematocrit 43.6, platelet count 67. PT 17.____, INR 1.6 . SMA-7: Sodium 145, potassium 3.4, chloride 103, CO2 of 26, blood urea nitrogen 20, creatinine 1.1 , glucose 256, calcium 8.1. Total bilirubin 4, direct bilirubin 2.6. AST 951, ALT 527, CK 2042, tot al protein 7, albumin 3.1. Procalcitonin 1.7. Urinalysis is negative. Urine drug screen negative. Serology: Hepatitis B and C negative. Microbiology: Blood culture positive for coagulase negative staphylococcus. IMPRESSION: 1. Admitted with alcohol withdrawal syndrome/delirium tremens. Currently on Librium and Ativan p.r. n., off Precedex. No further seizure noted. CT head: No acute intracranial abnormality. MRI brain report pending. Closely monitor for further seizure and withdrawal symptoms. 2. Abnormal LFT with elevated direct bilirubin consistent with alcohol liver cirrhosis. Appreciate GI followup. Ultrasound of the abdomen pending. 3. Thrombocytopenia with further increase in platelet count, off alcohol cessation - seen by casey irene, consistent with EtOH liver disease, thrombocytopenia. Fever with leukocytosis and gram-positive leukocytosis with mild fever. Suspect infection, possible aspiration pneumonia. The blood culture is positive for coagulase negative, suspected contamination. Repeat blood culture pending. Currentl y on vancomycin and Zosyn, off clindamycin. Seen by infectious disease consult. Repeat blood cultur e. Continue gastrointestinal prophylaxis, Pepcid 40 mg p.o. at night. 4. Ischemic cardiomyopathy with severe mitral regurgitation and reduced ejection fraction, suspected alcohol-related cardiomyopathy, ischemic cardiomyopathy to be ruled out. Cardiology consult request ed for further evaluation. Given elevated blood pressure, we will start on metoprolol 12.5 mg p.o. t wice daily. Lance Jones MD cc: [id number] TT: 09/04/2016 12:23:38 Confirmation # [id number] Dictation # [id number]
[2016-09-04] MEDS: Potassium Ch 20mEq in D5-1/2NS 1,000 ML IV SCH ×2 (12:43→22:40)
--- NOTE | 2016-09-04 13:00 | US ---
HISTORY: elevated LFTs, suspect cirrhosis COMPARISON: None available TECHNIQUE: Sonographic evaluation of the abdomen. FINDINGS: Examination limited by patient condition and limitations in patient positioning. LIVER: Measures 16.7 cm in sagittal dimension. Echogenic liver may be seen in setting of hepatic parenchymal disease or fatty infiltration. Hepatic contour. No focal hepatic mass identified. The main portal vein appears patent with normal directional flow. No intrahepatic bile duct dilatation. Small ascites. GALLBLADDER: Gallbladder wall is thickened measuring approximately 7 mm. No gallstones identified. Sonographic Martins's sign could not be assessed as the patient was heavily sedated. COMMON BILE DUCT: Measures 4 mm. PANCREAS: Not well visualized. RIGHT KIDNEY: Markedly limited visualization. Measures approximately 9.8 x 5.7 x 5.2 cm. No hydronephrosis identified. LEFT KIDNEY: Arguably limited visualization. Measures approximately 11.2 x 5.4 x 5.4cm. No hydronephrosis identified. SPLEEN: Measures approximately 11 cm. AORTA: Not well-visualized. IVC: Not well-visualized. OTHER FINDINGS: None. IMPRESSION: Limited study. Gallbladder wall thickening. Limited visualization without gallstones clearly evident. Martins sign could not be assessed by the anchorman due to patient sedation. Echogenic liver may be seen in setting of hepatic parenchymal disease or fatty infiltration. Nodular hepatic contour consistent with cirrhosis. Correlate clinically. Small ascites.
[2016-09-04] MEDS: Potassium CL 10mEq/100ml 100 ML IVPB SCH ×3 (14:08→16:14)
[2016-09-04 16:00] LABS: ALB/GLOB RATIO 0.8 (1.0-2.1); ALKALINE PHOSPHATASE 92 U/L (38-126); ALT/SGPT 445 U/L (21-72); AST/SGOT 683 U/L (17-59); BILIRUBIN,TOTAL 3.1 mg/dl (0.2-1.3); BLOOD UREA NITROGEN 15 mg/dl (9-20); CALCIUM 7.9 mg/dL (8.4-10.2); CARBON DIOXIDE 32 mmol/L (22-30); CHLORIDE 104 mmol/L (98-107); GFR AFRICAN-AMERICAN > 60; GLUCOSE,RANDOM 216 mg/dL (75-110); POTASSIUM 3.8 MMOL/L (3.6-5.0); SODIUM 145 mmol/l (132-148); TOTAL PROTEIN 6.7 G/DL (6.3-8.2)
--- NOTE | 2016-09-04 16:25 | CP.PCM.PN ---
Subjective - Date & Time of Evaluation Date of Evaluation: 09/04/16 Time of Evaluation: 16:21 - Subjective Subjective: ID NOTE RENAL FUNCTION IMPROVED WILL CONTINUE VANCOMYCIN AND ZOSYN IN ADJUSTED DOSE LFTs SHOW SOME IMPROVEMENT NANDA BUT STILL MUST CONSIDER IN A HEPATORENAL SYNDROME POSSIBILITY WBC13.3 Objective - Vital Signs/Intake and Output Vital Signs (last 24 hours): Temp Pulse Resp BP Pulse Ox 99.2 F 102 H 22 156/98 H 96 09/04/16 16:00 09/04/16 16:00 09/04/16 16:00 09/04/16 16:00 09/04/16 16:00 Intake and Output: 09/04/16 09/04/16 06:59 18:59 Intake Total 1485 1300 Output Total 850 100 Balance 635 1200 - Medications Medications: Current Medications Acetaminophen (Tylenol 650 Mg Supp) 650 mg [place] Q6 PRN PRN Reason: Fever >100.4 F Last Admin: 09/04/16 00:53 Dose: 650 mg Chlordiazepoxide (Librium) 50 mg PO Q8 [facility] Last Admin: 09/04/16 16:13 Dose: 50 mg Famotidine (Pepcid) 40 mg PO HS [facility] Last Admin: 09/03/16 21:48 Dose: 40 mg Folic Acid (Folic Acid) 1 mg PO DAILY [facility] Last Admin: 09/04/16 09:05 Dose: 1 mg Piperacillin Sod/Tazobactam (Sod 2.25 gm/ Sodium Chloride) 100 mls @ 100 mls/ hr IVPB Q8 [facility] Last Admin: 09/04/16 16:15 Dose: 100 mls/hr Potassium Chloride/Dextrose/Sod Cl (Potassium Chl 20 Meq In D5-1/2ns) 1,000 mls @ 99.01 mls/hr IV .Q10H6M [facility] Last Admin: 09/04/16 12:43 Dose: 99.01 mls/hr Vancomycin HCl 750 mg/ Sodium (Chloride) 250 mls @ 166.667 mls/hr IVPB Q12 [facility] Last Admin: 09/04/16 12:31 Dose: 166.667 mls/hr Insulin Human Regular (Humulin R) 0 units SC ACCU-CHECK [facility] PRN Reason: Protocol Last Admin: 09/04/16 16:10 Dose: 2 units Lorazepam (Ativan) 2 mg IVP Q2 PRN PRN Reason: Agitation Last Admin: 09/04/16 09:04 Dose: 2 mg Metoprolol Tartrate (Lopressor) 12.5 mg PO Q12 [facility] Last Admin: 09/04/16 13:40 Dose: 12.5 mg Multivitamins/Minerals (Therapeutic-M Tab) 1 tab PO DAILY [facility] Last Admin: 09/04/16 09:05 Dose: 1 tab Thiamine HCl (Vitamin B1 Tab) 100 mg PO DAILY [facility] Last Admin: 09/04/16 09:06 Dose: 100 mg - Labs Labs: 09/04/16 05:15 09/04/16 15:00 PT 17.3 SECONDS (9.6-11.2) H 09/04/16 05:15 INR 1.66 (0.92-1.08) H 09/04/16 05:15 APTT 27.9 SECONDS (23.3-32.5) 09/02/16 04:10
--- NOTE | 2016-09-04 17:11 | CON ---
DATE: 09/04/2016 He is hospitalized under in the intensive care unit. HISTORY OF PRESENT ILLNESS: This 51-year-old man is hospitalized following a seizure when he abruptl y quit drinking alcohol, has a history of chronic ethanol abuse and was being treated for hypertensio n. This consultation was requested because of an abnormal electrocardiogram and echocardiogram. The patient has never been a smoker, has never suffered a myocardial infarction and has never been treat ed for cardiac illness. On further questioning the indicates that for the last month to month a nd a half, she has noticed him getting out of breath with minor exertion, such as walking up a flight of stairs to get to their apartment and also walking outdoors he seems to get fatigued a little quic ker. There have been rare episodes of dyspnea upon lying down. Again the patient has never been a s moker and there is no underlying history of lung disease. He has never been treated for cardiac illn ess in the past. The patient was brought into the hospital following a seizure. At this point, he h as been sedated and is being treated for delirium tremens. PHYSICAL EXAMINATION: GENERAL: Shows a young man who is sedated, can be aroused with loud calling, but promptly goes back to sleep. VITAL SIGNS: Has a heart rate of 90 beats per minute, regular, and a blood pressure of 138/72 mmHg. NECK: His jugular venous pressure was not elevated. EXTREMITIES: There was no edema over his lower extremity. The pedal pulses were well felt. There w ere no carotid bruits. HEART: The first and second heart sounds were normal. There was no murmur, no gallop. LUNGS: No rales. ABDOMEN: Soft. Liver and spleen were not palpable. His electrocardiogram showed sinus rhythm with a pattern of left axis deviation and poor R-wave progr ession, nonspecific ST-T changes. The echocardiogram did show significant left ventricular wall ena on abnormality with mitral regurgitation. LABORATORY DATA: Was noted. 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 The patient at this juncture is hemodyna mically stable. No immediate intervention need be undertaken at is point. Once the patient is more awake, he will require a stress test to rule out any underlying coronary artery disease and will requ irch oral diuretics, KELSEY inhibitors and beta blockers. I will follow the patient with you. Alexandre Turner MD cc: 23 TT: 09/04/2016 17:11:15 Confirmation # [id number] Dictation # [id number]
--- NOTE | 2016-09-04 21:51 | PN ---
DATE: 09/04/2016 SUBJECTIVE: The patient is seen today on 09/04/2016. He is well sedated in intensive care unit. PHYSICAL EXAMINATION: VITAL SIGNS: Blood pressure 148/82, temperature 100.1, respiratory rate 20, and pulse 104. HEENT: Pupils equal and reactive to light. Normal-appearing mucosa of the conjunctivae, oropharynge al and nasopharyngeal mucosa. NECK: Supple, no JVD, no carotid bruit, no lymph node, no thyromegaly. CHEST AND LUNGS: Bilateral symmetrical expansion, good air exchange, no rales, no rhonchi. CARDIOVASCULAR: PMI not localized. S1, S2. No additional sounds. ABDOMEN: Normoactive bowel sounds, no tenderness, no organomegaly, no masses. EXTREMITIES: No cyanosis, no clubbing, no edema. CENTRAL NERVOUS SYSTEM: The patient is sleepy arousable, and there is no signs. LABORATORY DATA: Blood work today showed white blood cell count of 13.3, serum creatinine down to 1.0, AST is down to 683, ALT down to 449, and bilirubin is down to 3.1. ASSESSMENT: 1. Impending delirium tremens. 2. Alcohol withdrawal seizure. 3. Acute injury, likely secondary to medication. 4. Bacteremia. 5. Aspiration pneumonia. PLAN: Continue Zosyn and vancomycin. Monitor electrolytes and follow recommendations of willower . We will give patient Librium p.r.n. and continue ICU monitoring. Canelo Ellison MD cc: 167 TT: 09/04/2016 21:50:32 Confirmation # [id number] Dictation # [id number]
[2016-09-05 00:03] LABS: BLOOD UREA NITROGEN 13 mg/dl (9-20); CALCIUM 7.9 mg/dL (8.4-10.2); CARBON DIOXIDE 30 mmol/L (22-30); CHLORIDE 104 mmol/L (98-107); GFR AFRICAN-AMERICAN > 60; GLUCOSE,RANDOM 212 mg/dL (75-110); MAGNESIUM 1.7 MG/DL (1.6-2.3); PHOSPHOROUS 2.7 mg/dl (2.5-4.5); POTASSIUM 3.7 MMOL/L (3.6-5.0); SODIUM 146 mmol/l (132-148)
--- NOTE | 2016-09-05 03:32 | CP.PCM.PCO ---
Physician Communication Note - Physician Communication Note Physician Communication Note: Patient with 28 seconds run of irregular wide complex tachycardia.
[2016-09-05 03:49] LABS: ABG ALLEN TEST YES; ARTERIAL BLOOD GAS HCO3 28.3 mmol/L (21-28); ARTERIAL BLOOD GAS MODE 1L NC; ARTERIAL BLOOD GAS O2 CAPACITY 19.3 mL/dL (16-24); ARTERIAL BLOOD GAS O2 CONTENT 18.7 ML/dL (15-23); ARTERIAL BLOOD GAS PH 7.37 (7.35-7.45); ARTERIAL BLOOD GAS PO2 80 mm/Hg (80-100); ARTERIAL BLOOD HGB O2 SAT 93.7 % (95.0-98.0); CARBOXYHEMOGLOBIN 2.3 % (0.5-1.5); HHB 2.9 % (0.0-5.0); METHEMOGLOBIN 1.1 % (0.0-3.0)
[2016-09-05 05:18] LABS: BASO % 0.5 % (0.0-2.0); EOS # 0.1 K/uL (0.0-0.7); EOS % 1.1 % (0.0-4.0); HEMATOCRIT 42.8 % (35.0-51.0); LYMPH # 0.4 K/uL (1.0-4.3); LYMPH % 5.1 % (20.0-40.0); MEAN CELL VOLUME 96.6 fl (80.0-94.0); MEAN CORPUSCULAR HEMOGLOBIN 31.1 pg (27.0-31.0); MEAN CORPUSCULAR HGB CONC 32.2 g/dL (33.0-37.0); MEAN PLATELET VOLUME 11.3 fl (7.2-11.7); MONO # 1.2 K/uL (0.0-0.8); MONO % 14.8 % (0.0-10.0); NEUT # 6.5 K/uL (1.8-7.0); NEUT % 78.5 % (50.0-75.0); NRBC % 0.2 % (0.0-0.0); RED CELL DISTRIBUTION WIDTH 15.8 % (11.5-14.5); WHITE BLOOD COUNT 8.2 K/uL (4.8-10.8)
[2016-09-05 05:23] LABS: BLOOD UREA NITROGEN 12 mg/dl (9-20); CALCIUM 8.2 mg/dL (8.4-10.2); CARBON DIOXIDE 30 mmol/L (22-30); CHLORIDE 105 mmol/L (98-107); GFR AFRICAN-AMERICAN > 60; GLUCOSE,RANDOM 204 mg/dL (75-110); POTASSIUM 4.2 MMOL/L (3.6-5.0); SODIUM 147 mmol/l (132-148)
[2016-09-05 06:08] LABS: TOTAL CELLS COUNTED 100
[2016-09-05 06:09] LABS: NEUTROPHIL 76 % (42-75); REACTIVE LYMPHOCYTES 1 % (0-0)
[2016-09-05 06:10] LABS: PLATELET COUNT 49 K/uL (130-400)
[2016-09-05] MEDS: Insulin Regular 100 units/ml SC SCH ×4 (06:30→22:58)
--- NOTE | 2016-09-05 08:31 | MRI ---
PROCEDURE: MRI BRAIN WITHOUT CONTRAST HISTORY: New onset seizures COMPARISON: Noncontrast head CT from 08/30/2016 TECHNIQUE: Multiplanar, multisequence MR images of the brain were obtained without intravenous contrast enhancement. FINDINGS: HEMORRHAGE: None DWI: No evidence of an acute or early subacute infarction. BRAIN PARENCHYMA: There is no mass, mass effect or abnormal extra-axial fluid collection. Cox-white matter differentiation is preserved. There is no territorial infarction. There are low-lying cerebellar tonsils. VENTRICLES: There is mild global parenchymal volume loss and proportionate enlargement of the ventricles and cortical sulci. CRANIUM: There is normal bone marrow signal pattern. . ORBITS: The globes are normal. PARANASAL SINUSES/MASTOIDS: There is moderate polypoid mucosal thickening in the right maxillary sinus. The remaining included paranasal sinuses and mastoid air cells are clear. VASCULAR SYSTEM: There are normal signal voids in the larger intracranial arteries. OTHER FINDINGS: None. IMPRESSION: 1. No acute intracranial abnormality. 2. Mild global parenchymal volume loss, advanced for the patient's age.
[2016-09-05] MEDS ORDERED: Chlorhexidine Gluconate 1 APPL/PKT TP ONE (08:35)
[2016-09-05] MEDS: Multivitamin With Minerals Tab PO SCH (08:56)
--- NOTE | 2016-09-05 10:38 | CP.CCUPN ---
CCU Subjective - Physician Review Events Since Last Encounter (Free Text): 09/05/16 17:54 The Patient was seen and examined at the bedside, Medical records reviewed, all clinical/lab/hemodynamic/radiographic data were reviewed and management issues were discussed and formulated, 51 Y/O M with PNHx of HTN, DM, cardiomyopathy, Crohn's disease and EtOH Dependancy with Alcoholic Liver Disease Who presented to the ED on 08/30 with new onset seizure in the sitting of Etoh withdrawal and Delirium Tremans. Patient had Head CT scan and MRI on admission ( negative for acute bleed/stroke) Hospital course noted for electrolytes imbalance, Thrombocytopenia and Acute kidney injury (renal function better) Patient is somnolent today, Ativan and Librium was changed to PRN. Afebrile, Tachycardic received 5 mg IV Ativan, HR better Seizure free Patient on continues 1:1 observation CCU Objective - Vital Signs / Intake & Output Vital Signs (Last 4 hours): Vital Signs Temp Pulse Resp BP Pulse Ox 09/05/16 08:56 115 H 153/109 H 09/05/16 08:00 99.9 F H 122 H 10 L 166/110 H 98 Intake and Output (Last 8hrs): Intake & Output 09/04/16 09/05/16 09/05/16 22:59 06:59 14:59 Intake Total 1370 900 100 Output Total 1000 400 35 Balance 370 500 65 Intake: IV 800 800 100 Intake, Piggyback 350 100 Oral 220 Output: Urine 1000 400 35 Urethral ([place]) 1000 400 35 - Physical Exam Physical Exam Limitations: Positive for: Altered Mental Status, Clinical Condition, Intoxication, Uncooperative Head: Positive for: Atraumatic, Normocephalic Pupils: Positive for: PERRL. Negative for: Sluggish, Non-Reactive Extroacular Muscles: Positive for: EOMI Conjunctiva: Positive for: Normal. Negative for: Injected, Icteric Mouth: Positive for: Moist Mucous Membranes Nose (External): Positive for: Atraumatic. Negative for: Abrasion Nose (Internal): Positive for: Normal Inspection Neck: Positive for: Normal Range of Motion, Trachea Midline. Negative for: Meningeal Signs, MIDLINE TENDERNESS, Paraspinal Tenderness, JVD, Lymphadenopathy , Bruit, Other Respiratory/Chest: Positive for: Clear to Auscultation, Good Air Exchange, Decreased Breath Sounds. Negative for: Respiratory Distress, Accessory Muscle Use, Wheezes, Rales, Retracting, Rhonchi, Tachypneic Cardiovascular: Positive for: Regular Rate and Rhythm, Normal S1, S2, Peripheal Pulses Present, Tachycardic. Negative for: Murmurs Abdomen: Positive for: Distention, Normal Bowel Sounds. Negative for: Tenderness, Peritoneal Signs - Medications Active Medications: Active Medications Generic Name Dose Route Start Last Admin Trade Name Freq PRN Reason Stop Dose Admin Chlordiazepoxide 25 mg 09/04/16 20:28 Librium PO 09/09/16 20:29 Q6 PRN Agitation Famotidine 40 mg 09/03/16 22:00 09/04/16 21:52 Pepcid PO 40 mg HS [facility] Administration Folic Acid 1 mg 09/04/16 09:00 09/05/16 08:56 Folic Acid PO 1 mg DAILY [facility] Administration Piperacillin Sod/Tazobactam 100 mls @ 100 mls/hr 09/04/16 01:00 09/05/16 08:52 Sod 2.25 gm/ Sodium Chloride IVPB 100 mls/hr Q8 [facility] Administration Vancomycin HCl 750 mg/ Sodium 250 mls @ 166.667 mls/hr 09/04/16 09:00 09/05/16 08:51 Chloride IVPB 166.667 mls/hr Q12 [facility] Administration Insulin Human Regular 0 units 09/03/16 23:00 09/05/16 06:30 Humulin R SC 3 units ACCU-CHECK [facility] Administration Protocol Lorazepam 2 mg 09/03/16 20:04 09/04/16 22:00 Ativan IVP 2 mg Q2 PRN Administration Agitation Metoprolol Tartrate 12.5 mg 09/04/16 10:30 09/05/16 08:56 Lopressor PO 12.5 mg Q12 [facility] Administration Multivitamins/Minerals 1 tab 09/04/16 09:00 09/05/16 08:56 Therapeutic-M Tab PO 1 tab DAILY [facility] Administration Thiamine HCl 100 mg 09/04/16 09:00 09/05/16 08:57 Vitamin B1 Tab PO 100 mg DAILY [facility] Administration - Patient Studies Lab Studies: Microbiology Studies 09/01/16 06:05 Blood Culture - Preliminary Blood-Venous NO GROWTH AFTER 4 DAYS 09/04/16 05:15 Blood Culture - Preliminary Blood-Thru Central Line NO GROWTH AFTER 24 HOURS 09/04/16 05:15 Blood Culture - Preliminary Blood-Thru Central Line NO GROWTH AFTER 24 HOURS 09/03/16 09:50 Blood Culture - Preliminary Blood NO GROWTH AFTER 24 HOURS 09/03/16 09:45 Blood Culture - Preliminary Blood NO GROWTH AFTER 24 HOURS Lab Studies 09/05/16 09/05/16 09/05/16 Range/Units 04:30 04:13 03:39 WBC 8.2 (4.8-10.8) K/uL RBC 4.43 (4.40-5.90) Mil/uL Hgb 13.8 (12.0-18.0) g/dL Hct 42.8 (35.0-51.0) % MCV 96.6 H (80.0-94.0) fl MCH 31.1 H (27.0-31.0) pg MCHC 32.2 L (33.0-37.0) g/dL RDW 15.8 H (11.5-14.5) % Plt Count 49 L (130-400) K/uL MPV 11.3 (7.2-11.7) fl Neut % (Auto) 78.5 H (50.0-75.0) % Lymph % (Auto) 5.1 L (20.0-40.0) % [place] % (Auto) 14.8 H (0.0-10.0) % Eos % (Auto) 1.1 (0.0-4.0) % Baso % (Auto) 0.5 (0.0-2.0) % Neut # 6.5 (1.8-7.0) K/uL Lymph # 0.4 L (1.0-4.3) K/uL [place] # 1.2 H (0.0-0.8) K/uL Eos # 0.1 (0.0-0.7) K/uL Baso # 0.0 (0.0-0.2) K/uL Neutrophils % (Manual) 76 H (42-75) % Band Neutrophils % 4 H (0-2) % Lymphocytes % (Manual) 5 L (20-50) % Reactive Lymphs % 1 H (0-0) % Monocytes % (Manual) 14 H (0-10) % Platelet Estimate Decreased L (NORMAL) Anisocytosis (manual) Slight Macrocytosis (manual) Moderate PT 15.6 H (9.6-11.2) SECONDS INR 1.50 H (0.92-1.08) pCO2 54 H (35-45) mm/Hg pO2 80 (80-100) mm/Hg HCO3 28.3 H (21-28) mmol/L ABG pH 7.37 (7.35-7.45) ABG Total CO2 32.9 H (22-28) mmol/L ABG O2 Saturation 97.0 (95-98) % ABG O2 Content 18.7 (15-23) ML/dL ABG Base Excess 4.5 H (-2.0-3.0) mmol/L ABG Hemoglobin 14.2 (11.7-17.4) g/dL ABG Carboxyhemoglobin 2.3 H (0.5-1.5) % POC ABG HHb (Measured) 2.9 (0.0-5.0) % ABG Methemoglobin 1.1 (0.0-3.0) % ABG O2 Capacity 19.3 (16-24) mL/dL Jim Test Yes A-a O2 Difference 24.0 mm/Hg Hgb O2 Saturation 93.7 L (95.0-98.0) % Vent Mode 1l nc FiO2 24.0 % Crit Value Called By 333 Blood Gas Notified Time 349 Sodium 147 (132-148) mmol/l Potassium 4.2 (3.6-5.0) MMOL/L Chloride 105 (98-107) mmol/L Carbon Dioxide 30 (22-30) mmol/L Anion Gap 16 (10-20) BUN 12 (9-20) mg/dl Creatinine 0.9 (0.8-1.5) mg/dL Est GFR ( Amer) > 60 Est GFR (Non-Af Amer) > 60 POC Glucose (mg/dL) 214 H (65-110) mg/dL Random Glucose 204 H (75-110) mg/dL Calcium 8.2 L (8.4-10.2) mg/dL Phosphorus (2.5-4.5) mg/dl Magnesium (1.6-2.3) MG/DL Total Bilirubin (0.2-1.3) mg/dl AST (17-59) U/L ALT (21-72) U/L Alkaline Phosphatase (38-126) U/L Total Protein (6.3-8.2) G/DL Albumin (3.5-5.0) g/dL Globulin (2.2-3.9) gm/dL Albumin/Globulin Ratio (1.0-2.1) Ur Random Sodium meq/L Ur Random Potassium mmol/L 09/04/16 09/04/16 09/04/16 Range/Units 23:47 21:38 17:38 WBC (4.8-10.8) K/uL RBC (4.40-5.90) Mil/uL Hgb (12.0-18.0) g/dL Hct (35.0-51.0) % MCV (80.0-94.0) fl MCH (27.0-31.0) pg MCHC (33.0-37.0) g/dL RDW (11.5-14.5) % Plt Count (130-400) K/uL MPV (7.2-11.7) fl Neut % (Auto) (50.0-75.0) % Lymph % (Auto) (20.0-40.0) % [place] % (Auto) (0.0-10.0) % Eos % (Auto) (0.0-4.0) % Baso % (Auto) (0.0-2.0) % Neut # (1.8-7.0) K/uL Lymph # (1.0-4.3) K/uL [place] # (0.0-0.8) K/uL Eos # (0.0-0.7) K/uL Baso # (0.0-0.2) K/uL Neutrophils % (Manual) (42-75) % Band Neutrophils % (0-2) % Lymphocytes % (Manual) (20-50) % Reactive Lymphs % (0-0) % Monocytes % (Manual) (0-10) % Platelet Estimate (NORMAL) Anisocytosis (manual) Macrocytosis (manual) PT (9.6-11.2) SECONDS INR (0.92-1.08) pCO2 (35-45) mm/Hg pO2 (80-100) mm/Hg HCO3 (21-28) mmol/L ABG pH (7.35-7.45) ABG Total CO2 (22-28) mmol/L ABG O2 Saturation (95-98) % ABG O2 Content (15-23) ML/dL ABG Base Excess (-2.0-3.0) mmol/L ABG Hemoglobin (11.7-17.4) g/dL ABG Carboxyhemoglobin (0.5-1.5) % POC ABG HHb (Measured) (0.0-5.0) % ABG Methemoglobin (0.0-3.0) % ABG O2 Capacity (16-24) mL/dL Jim Test A-a O2 Difference mm/Hg Hgb O2 Saturation (95.0-98.0) % Vent Mode FiO2 % Crit Value Called By Blood Gas Notified Time Sodium 146 (132-148) mmol/l Potassium 3.7 (3.6-5.0) MMOL/L Chloride 104 (98-107) mmol/L Carbon Dioxide 30 (22-30) mmol/L Anion Gap 16 (10-20) BUN 13 (9-20) mg/dl Creatinine 0.9 (0.8-1.5) mg/dL Est GFR ( Amer) > 60 Est GFR (Non-Af Amer) > 60 POC Glucose (mg/dL) 190 H (65-110) mg/dL Random Glucose 212 H (75-110) mg/dL Calcium 7.9 L (8.4-10.2) mg/dL Phosphorus 2.7 (2.5-4.5) mg/dl Magnesium 1.7 (1.6-2.3) MG/DL Total Bilirubin (0.2-1.3) mg/dl AST (17-59) U/L ALT (21-72) U/L Alkaline Phosphatase (38-126) U/L Total Protein (6.3-8.2) G/DL Albumin (3.5-5.0) g/dL Globulin (2.2-3.9) gm/dL Albumin/Globulin Ratio (1.0-2.1) Ur Random Sodium 73 meq/L Ur Random Potassium 24.2 mmol/L 09/04/16 09/04/16 09/04/16 Range/Units 15:58 15:00 10:51 WBC (4.8-10.8) K/uL RBC (4.40-5.90) Mil/uL Hgb (12.0-18.0) g/dL Hct (35.0-51.0) % MCV (80.0-94.0) fl MCH (27.0-31.0) pg MCHC (33.0-37.0) g/dL RDW (11.5-14.5) % Plt Count (130-400) K/uL MPV (7.2-11.7) fl Neut % (Auto) (50.0-75.0) % Lymph % (Auto) (20.0-40.0) % [place] % (Auto) (0.0-10.0) % Eos % (Auto) (0.0-4.0) % Baso % (Auto) (0.0-2.0) % Neut # (1.8-7.0) K/uL Lymph # (1.0-4.3) K/uL [place] # (0.0-0.8) K/uL Eos # (0.0-0.7) K/uL Baso # (0.0-0.2) K/uL Neutrophils % (Manual) (42-75) % Band Neutrophils % (0-2) % Lymphocytes % (Manual) (20-50) % Reactive Lymphs % (0-0) % Monocytes % (Manual) (0-10) % Platelet Estimate (NORMAL) Anisocytosis (manual) Macrocytosis (manual) PT (9.6-11.2) SECONDS INR (0.92-1.08) pCO2 (35-45) mm/Hg pO2 (80-100) mm/Hg HCO3 (21-28) mmol/L ABG pH (7.35-7.45) ABG Total CO2 (22-28) mmol/L ABG O2 Saturation (95-98) % ABG O2 Content (15-23) ML/dL ABG Base Excess (-2.0-3.0) mmol/L ABG Hemoglobin (11.7-17.4) g/dL ABG Carboxyhemoglobin (0.5-1.5) % POC ABG HHb (Measured) (0.0-5.0) % ABG Methemoglobin (0.0-3.0) % ABG O2 Capacity (16-24) mL/dL Jim Test A-a O2 Difference mm/Hg Hgb O2 Saturation (95.0-98.0) % Vent Mode FiO2 % Crit Value Called By Blood Gas Notified Time Sodium 145 (132-148) mmol/l Potassium 3.8 (3.6-5.0) MMOL/L Chloride 104 (98-107) mmol/L Carbon Dioxide 32 H (22-30) mmol/L Anion Gap 13 (10-20) BUN 15 (9-20) mg/dl Creatinine 1.0 (0.8-1.5) mg/dL Est GFR ( Amer) > 60 Est GFR (Non-Af Amer) > 60 POC Glucose (mg/dL) 187 H 240 H (65-110) mg/dL Random Glucose 216 H (75-110) mg/dL Calcium 7.9 L (8.4-10.2) mg/dL Phosphorus (2.5-4.5) mg/dl Magnesium (1.6-2.3) MG/DL Total Bilirubin 3.1 H (0.2-1.3) mg/dl AST 683 H D (17-59) U/L ALT 445 H (21-72) U/L Alkaline Phosphatase 92 (38-126) U/L Total Protein 6.7 (6.3-8.2) G/DL Albumin 2.9 L (3.5-5.0) g/dL Globulin 3.8 (2.2-3.9) gm/dL Albumin/Globulin Ratio 0.8 L (1.0-2.1) Ur Random Sodium meq/L Ur Random Potassium mmol/L Laboratory Results - last 24 hr 09/04/16 09/04/16 09/04/16 10:51 15:00 15:58 WBC RBC Hgb Hct MCV MCH MCHC RDW Plt Count MPV Neut % (Auto) Lymph % (Auto) [place] % (Auto) Eos % (Auto) Baso % (Auto) Neut # Lymph # [place] # Eos # Baso # Neutrophils % (Manual) Band Neutrophils % Lymphocytes % (Manual) Reactive Lymphs % Monocytes % (Manual) Platelet Estimate Anisocytosis (manual) Macrocytosis (manual) PT INR pCO2 pO2 HCO3 ABG pH ABG Total CO2 ABG O2 Saturation ABG O2 Content ABG Base Excess ABG Hemoglobin ABG Carboxyhemoglobin POC ABG HHb (Measured) ABG Methemoglobin ABG O2 Capacity Jim Test A-a O2 Difference Hgb O2 Saturation Vent Mode FiO2 Crit Value Called By Blood Gas Notified Time Sodium 145 Potassium 3.8 Chloride 104 Carbon Dioxide 32 H Anion Gap 13 BUN 15 Creatinine 1.0 Est GFR ( Amer) > 60 Est GFR (Non-Af Amer) > 60 POC Glucose (mg/dL) 240 H 187 H Random Glucose 216 H Calcium 7.9 L Phosphorus Magnesium Total Bilirubin 3.1 H AST 683 H D ALT 445 H Alkaline Phosphatase 92 Total Protein 6.7 Albumin 2.9 L Globulin 3.8 Albumin/Globulin Ratio 0.8 L Ur Random Sodium Ur Random Potassium 09/04/16 09/04/16 09/04/16 17:38 21:38 23:47 WBC RBC Hgb Hct MCV MCH MCHC RDW Plt Count MPV Neut % (Auto) Lymph % (Auto) [place] % (Auto) Eos % (Auto) Baso % (Auto) Neut # Lymph # [place] # Eos # Baso # Neutrophils % (Manual) Band Neutrophils % Lymphocytes % (Manual) Reactive Lymphs % Monocytes % (Manual) Platelet Estimate Anisocytosis (manual) Macrocytosis (manual) PT INR pCO2 pO2 HCO3 ABG pH ABG Total CO2 ABG O2 Saturation ABG O2 Content ABG Base Excess ABG Hemoglobin ABG Carboxyhemoglobin POC ABG HHb (Measured) ABG Methemoglobin ABG O2 Capacity Jim Test A-a O2 Difference Hgb O2 Saturation Vent Mode FiO2 Crit Value Called By Blood Gas Notified Time Sodium 146 Potassium 3.7 Chloride 104 Carbon Dioxide 30 Anion Gap 16 BUN 13 Creatinine 0.9 Est GFR ( Amer) > 60 Est GFR (Non-Af Amer) > 60 POC Glucose (mg/dL) 190 H Random Glucose 212 H Calcium 7.9 L Phosphorus 2.7 Magnesium 1.7 Total Bilirubin AST ALT Alkaline Phosphatase Total Protein Albumin Globulin Albumin/Globulin Ratio Ur Random Sodium 73 Ur Random Potassium 24.2 09/05/16 09/05/16 09/05/16 03:39 04:13 04:30 WBC 8.2 RBC 4.43 Hgb 13.8 Hct 42.8 MCV 96.6 H MCH 31.1 H MCHC 32.2 L RDW 15.8 H Plt Count 49 L MPV 11.3 Neut % (Auto) 78.5 H Lymph % (Auto) 5.1 L [place] % (Auto) 14.8 H Eos % (Auto) 1.1 Baso % (Auto) 0.5 Neut # 6.5 Lymph # 0.4 L [place] # 1.2 H Eos # 0.1 Baso # 0.0 Neutrophils % (Manual) 76 H Band Neutrophils % 4 H Lymphocytes % (Manual) 5 L Reactive Lymphs % 1 H Monocytes % (Manual) 14 H Platelet Estimate Decreased L Anisocytosis (manual) Slight Macrocytosis (manual) Moderate PT 15.6 H INR 1.50 H pCO2 54 H pO2 80 HCO3 28.3 H ABG pH 7.37 ABG Total CO2 32.9 H ABG O2 Saturation 97.0 ABG O2 Content 18.7 ABG Base Excess 4.5 H ABG Hemoglobin 14.2 ABG Carboxyhemoglobin 2.3 H POC ABG HHb (Measured) 2.9 ABG Methemoglobin 1.1 ABG O2 Capacity 19.3 Jim Test Yes A-a O2 Difference 24.0 Hgb O2 Saturation 93.7 L Vent Mode 1l nc FiO2 24.0 Crit Value Called By 333 Blood Gas Notified Time 349 Sodium 147 Potassium 4.2 Chloride 105 Carbon Dioxide 30 Anion Gap 16 BUN 12 Creatinine 0.9 Est GFR ( Amer) > 60 Est GFR (Non-Af Amer) > 60 POC Glucose (mg/dL) 214 H Random Glucose 204 H Calcium 8.2 L Phosphorus Magnesium Total Bilirubin AST ALT Alkaline Phosphatase Total Protein Albumin Globulin Albumin/Globulin Ratio Ur Random Sodium Ur Random Potassium Fingerstick Blood Sugar Results: 204 Review of Systems - Review of Systems Systems not reviewed;Unavailable: Altered Mental Status Critical Care Progress Note - Nutrition Nutrition: Nutrition Category Date Time Status Liquid Diet [DIET] Diets 09/04/16 Lunch Active Assessment/Plan (1) Altered mental status Current Visit: Yes Status: Acute (2) Hepatic encephalopathy Current Visit: Yes Status: Acute (3) Alcohol withdrawal seizure Current Visit: Yes Status: Acute (4) Aspiration pneumonia Current Visit: Yes Status: Acute (5) Thrombocytopenia Current Visit: Yes Status: Acute (6) Congestive cardiomyopathy Current Visit: Yes Status: Acute (7) Alcohol intoxication in active alcoholic Current Visit: No Status: Acute - Assessment and Plan (Free Text) Assessment: Continue current management, IV antibiotics, frequent neuro-check, Seizure precautions. Off all sedatives, check ABG, monitor renal and liver function
--- NOTE | 2016-09-05 11:30 | CP.PCM.PN ---
<Cesar Bergman - Last Filed: 09/05/16 16:45> Subjective - Date & Time of Evaluation Date of Evaluation: 09/05/16 Time of Evaluation: 10:45 - Subjective Subjective: PGY4 GI Fellow Progress Note Patient seen and examined bedside this morning. The patient is somnolent and will not participate in examination. Per one to one, patient has been drowsy but arousable for much of her shift and has been unable to eat very much due to somnolence. Discussed with nursing who state patient has been between periods of agitation and somnolence. Last dose of Ativan was at 2200 last night. 12 system ROS cannot be completed due to altered mentation. Objective - Vital Signs/Intake and Output Vital Signs (last 24 hours): Temp Pulse Resp BP Pulse Ox 99.9 F H 107 H 21 146/102 H 98 09/05/16 08:00 09/05/16 10:00 09/05/16 10:00 09/05/16 10:00 09/05/16 10:00 Intake and Output: 09/05/16 09/05/16 06:59 18:59 Intake Total 1650 100 Output Total 600 35 Balance 1050 65 - Medications Medications: Current Medications Chlordiazepoxide (Librium) 25 mg PO Q6 PRN PRN Reason: Agitation Stop: 09/09/16 20:29 Famotidine (Pepcid) 40 mg PO HS [facility] Last Admin: 09/04/16 21:52 Dose: 40 mg Folic Acid (Folic Acid) 1 mg PO DAILY [facility] Last Admin: 09/05/16 08:56 Dose: 1 mg Piperacillin Sod/Tazobactam (Sod 2.25 gm/ Sodium Chloride) 100 mls @ 100 mls/ hr IVPB Q8 [facility] Last Admin: 09/05/16 08:52 Dose: 100 mls/hr Vancomycin HCl 750 mg/ Sodium (Chloride) 250 mls @ 166.667 mls/hr IVPB Q12 [facility] Last Admin: 09/05/16 08:51 Dose: 166.667 mls/hr Insulin Human Regular (Humulin R) 0 units SC ACCU-CHECK CORTNEY PRN Reason: Protocol Last Admin: 09/05/16 06:30 Dose: 3 units Lorazepam (Ativan) 2 mg IVP Q2 PRN PRN Reason: Agitation Last Admin: 09/04/16 22:00 Dose: 2 mg Metoprolol Tartrate (Lopressor) 12.5 mg PO Q12 [facility] Last Admin: 09/05/16 08:56 Dose: 12.5 mg Multivitamins/Minerals (Therapeutic-M Tab) 1 tab PO DAILY [facility] Last Admin: 09/05/16 08:56 Dose: 1 tab Thiamine HCl (Vitamin B1 Tab) 100 mg PO DAILY [facility] Last Admin: 09/05/16 08:57 Dose: 100 mg - Labs Labs: 09/05/16 04:30 09/05/16 04:30 PT 15.6 SECONDS (9.6-11.2) H 09/05/16 04:30 INR 1.50 (0.92-1.08) H 09/05/16 04:30 APTT 27.9 SECONDS (23.3-32.5) 09/02/16 04:10 - Constitutional Appears: Confused, Other (somnolent) - Eye Exam Eye Exam: PERRL - ENT Exam ENT Exam: Mucous Membranes Dry - Respiratory Exam Respiratory Exam: Clear to Ausculation Bilateral. absent: Rales, Rhonchi, Wheezes - Cardiovascular Exam Cardiovascular Exam: Tachycardia, REGULAR RHYTHM, +S1, +S2 - GI/Abdominal Exam GI & Abdominal Exam: Soft, Hernia (ventral), Normal Bowel Sounds. absent: Distended, Firm, Guarding, Rigid, Tenderness, Organomegaly Additional comments: large midline scar noted - Extremities Exam Extremities Exam: Normal Inspection. absent: Pedal Edema - Neurological Exam Neurological Exam: Altered - Skin Skin Exam: Dry, Warm Assessment and Plan - Assessment and Plan (Free Text) Assessment: Patient is a 51yo male with PMHx significant for DM, HTN, EtOH abuse who presented to the ED following a seizure, suspected 2/2 alcohol withdrawal. -New onset seizure -Acute EtOH delirium and withdrawal -Transaminasemia 2/2 acute/chronic EtOH use; Acute EtOH hepatitis -Cirrhosis -Acute hepatic encephalopathy Plan: -MDF does not meet criteria to start methylprednisolone therapy, continue to monitor PT/INR/Bilirubin - MDF currently 28.9 -Abdominal U/S reviewed, with lab work/clinical picture; consistent with cirrhosis -Hepatitis panel negative -Autoimmune work up in progress -Start Lactulose 20gm PO BID, titrate to 1-2BM/day; use AK if patient cannot tolerate -Start Xifaxan 550mg PO BID -Avoid sedating agents where possible, would hold Ativan/Librium -Check daily CBC, CMP, INR for MELD calculations *MELD-Na 15 <Linda Silva MD - Last Filed: 09/05/16 16:49> Objective - Vital Signs/Intake and Output Vital Signs (last 24 hours): Temp Pulse Resp BP Pulse Ox 98.4 F 124 H 24 161/108 H 98 09/05/16 16:00 09/05/16 16:00 09/05/16 16:00 09/05/16 16:00 09/05/16 16:00 Intake and Output: 09/05/16 09/05/16 06:59 18:59 Intake Total 1650 1800 Output Total 600 460 Balance 1050 1340 - Medications Medications: Current Medications Chlordiazepoxide (Librium) 25 mg PO Q6 PRN PRN Reason: Agitation Stop: 09/09/16 20:29 Famotidine (Pepcid) 40 mg PO HS [facility] Last Admin: 09/04/16 21:52 Dose: 40 mg Folic Acid (Folic Acid) 1 mg PO DAILY [facility] Last Admin: 09/05/16 08:56 Dose: 1 mg Piperacillin Sod/Tazobactam (Sod 2.25 gm/ Sodium Chloride) 100 mls @ 100 mls/ hr IVPB Q8 [facility] Last Admin: 09/05/16 16:04 Dose: 100 mls/hr Vancomycin HCl 750 mg/ Sodium (Chloride) 250 mls @ 166.667 mls/hr IVPB Q12 [facility] Last Admin: 09/05/16 08:51 Dose: 166.667 mls/hr Magnesium Sulfate/Dextrose (Magnesium Sulfate 1 Gm/100 Ml D5w) 100 mls @ 100 mls/hr IVPB ONCE ONE PRN Reason: 1 GM/HR Stop: 09/05/16 17:14 Last Admin: 09/05/16 16:15 Dose: Not Given Insulin Human Regular (Humulin R) 0 units SC ACCU-CHECK CORTNEY PRN Reason: Protocol Last Admin: 09/05/16 16:03 Dose: 3 units Lactulose (Enulose) 20 gm PO BID [facility] Last Admin: 09/05/16 16:04 Dose: Not Given Lorazepam (Ativan) 2 mg IVP Q2 PRN PRN Reason: Agitation Last Admin: 09/04/16 22:00 Dose: 2 mg Metoprolol Tartrate (Lopressor) 12.5 mg PO Q12 [facility] Last Admin: 09/05/16 08:56 Dose: 12.5 mg Multivitamins/Minerals (Therapeutic-M Tab) 1 tab PO DAILY [facility] Last Admin: 09/05/16 08:56 Dose: 1 tab Rifaximin (Xifaxan) 550 mg PO BID [facility] Last Admin: 09/05/16 16:04 Dose: Not Given Thiamine HCl (Vitamin B1 Tab) 100 mg PO DAILY [facility] Last Admin: 09/05/16 08:57 Dose: 100 mg - Labs Labs: 09/05/16 04:30 09/05/16 04:30 PT 15.6 SECONDS (9.6-11.2) H 09/05/16 04:30 INR 1.50 (0.92-1.08) H 09/05/16 04:30 APTT 27.9 SECONDS (23.3-32.5) 09/02/16 04:10 Attending/Attestation - Attestation I have personally seen and examined this patient.: Yes I have fully participated in the care of the patient.: Yes I have reviewed all pertinent clinical information, including history, physical exam and plan: Yes Notes (Text): 09/05/16 16:47 Patient seen and examined with GI fellow on rounds this am. 51yo male with PMHx significant for DM, HTN, EtOH abuse who presented to the ED following a seizure , suspected 2/2 alcohol withdrawal. Biochemical evidence of cirrhosis with MELD 15. MDF of 28.9- does not meet criteria for steroids. Has componenet of hepatic encephalopathy in setting of benzo use. Will taper off benzo and start lactulose rectally if not able to take lactulose po. Daily MELD labs and alcohol cessation counselling.
--- NOTE | 2016-09-05 14:00 | RAD ---
HISTORY: Shortness breath. Technique: Single view portable erect @ 03:45 COMPARISON: 09/04/2016. FINDINGS: LUNGS: Stable extensive right lower lobe infiltrate. PLEURA: No significant pleural effusion identified, no pneumothorax apparent. CARDIOVASCULAR: Cardiomegaly. No evidence of acute, significant cardiovascular disease. OSSEOUS STRUCTURES: No significant abnormalities. VISUALIZED UPPER ABDOMEN: Normal. OTHER FINDINGS: None. IMPRESSION: Stable right lower lobe infiltrate presumed to represent pneumonia.
[2016-09-05] MEDS ORDERED: Metoprolol 1 mg/ml Inj IVP ONE ×2 (18:30→20:44)
[2016-09-05 18:57] LABS: ABG ALLEN TEST YES; ARTERIAL BLOOD GAS HCO3 27.6 mmol/L (21-28); ARTERIAL BLOOD GAS PH 7.33 (7.35-7.45); ARTERIAL BLOOD GAS PO2 68 mm/Hg (80-100)
[2016-09-05 18:58] LABS: DRAW SITE rt rad
--- NOTE | 2016-09-05 19:28 | CP.PCM.PN ---
Subjective - Date & Time of Evaluation Date of Evaluation: 09/05/16 Time of Evaluation: 14:00 - Subjective Subjective: SEEN ON RENAL F/U RENAL FUNCTION BACK TO WNL ALL PREVIOUS EMR REVIEWED Objective - Vital Signs/Intake and Output Vital Signs (last 24 hours): Temp Pulse Resp BP Pulse Ox 98.4 F 106 H 26 H 144/96 H 99 09/05/16 16:00 09/05/16 18:23 09/05/16 18:23 09/05/16 18:23 09/05/16 18:23 Intake and Output: 09/05/16 09/06/16 18:59 06:59 Intake Total 2300 Output Total 520 Balance 1780 - Medications Medications: Current Medications Chlordiazepoxide (Librium) 25 mg PO Q6 PRN PRN Reason: Agitation Stop: 09/09/16 20:29 Famotidine (Pepcid) 40 mg PO HS [facility] Last Admin: 09/04/16 21:52 Dose: 40 mg Folic Acid (Folic Acid) 1 mg PO DAILY [facility] Last Admin: 09/05/16 08:56 Dose: 1 mg Piperacillin Sod/Tazobactam (Sod 2.25 gm/ Sodium Chloride) 100 mls @ 100 mls/ hr IVPB Q8 [facility] Last Admin: 09/05/16 16:04 Dose: 100 mls/hr Vancomycin HCl 750 mg/ Sodium (Chloride) 250 mls @ 166.667 mls/hr IVPB Q12 [facility] Last Admin: 09/05/16 08:51 Dose: 166.667 mls/hr Insulin Human Regular (Humulin R) 0 units SC ACCU-CHECK CORTNEY PRN Reason: Protocol Last Admin: 09/05/16 16:03 Dose: 3 units Lactulose (Enulose) 20 gm PO BID [facility] Last Admin: 09/05/16 17:03 Dose: 20 gm Lorazepam (Ativan) 2 mg IVP Q2 PRN PRN Reason: Agitation Last Admin: 09/04/16 22:00 Dose: 2 mg Metoprolol Tartrate (Lopressor) 12.5 mg PO Q12 [facility] Last Admin: 09/05/16 08:56 Dose: 12.5 mg Multivitamins/Minerals (Therapeutic-M Tab) 1 tab PO DAILY [facility] Last Admin: 09/05/16 08:56 Dose: 1 tab Rifaximin (Xifaxan) 550 mg PO BID [facility] Last Admin: 09/05/16 17:02 Dose: 550 mg Thiamine HCl (Vitamin B1 Tab) 100 mg PO DAILY [facility] Last Admin: 09/05/16 08:57 Dose: 100 mg - Labs Labs: 09/05/16 04:30 09/05/16 04:30 PT 15.6 SECONDS (9.6-11.2) H 09/05/16 04:30 INR 1.50 (0.92-1.08) H 09/05/16 04:30 APTT 27.9 SECONDS (23.3-32.5) 09/02/16 04:10 Assessment and Plan - Assessment and Plan (Free Text) Assessment: S/P NONA .. RENAL FUNCTION BACK TO WNL C/O CURRENT CARE
[2016-09-05] MEDS ORDERED: Etomidate 20 mg/10ml Inj IV ONE (21:47)
[2016-09-05] MEDS ORDERED: Rocuronium 10 mg/ml (5 ml) IV ONE (21:48)
[2016-09-05 21:57] LABS: ABG ALLEN TEST YES; ABG MECHANICAL RATE 16; ARTERIAL BLOOD GAS HCO3 24.4 mmol/L (21-28); ARTERIAL BLOOD GAS O2 CAPACITY 20.5 mL/dL (16-24); ARTERIAL BLOOD GAS PO2 46 mm/Hg (80-100); ARTERIAL BLOOD HGB O2 SAT 71.2 % (95.0-98.0); CARBOXYHEMOGLOBIN 2.2 % (0.5-1.5); METHEMOGLOBIN 0.6 % (0.0-3.0)
[2016-09-05 22:15] LABS: ARTERIAL BLOOD GAS PH 7.11 (7.35-7.45)
--- NOTE | 2016-09-05 23:50 | PCM.PROC ---
Procedures Attestation:: I certify that I have explained the specified Operation(s) or Procedure(s), risks, benefits and reasonable alternatives to the Patient and/or other person responsible. The opportunity was given to ask questions and all questions answered - Intubation Time Out Performed: Yes Sedative: Etomidate Laryngoscope: Gricel ET Tube Size: 8.0 ET Tube Secured Locarion: Lips ET Tube Placement Confirmation: Visualized Passing Through Cords, Breath Sounds Equal Bilaterally, Confirmation w/Capnometry Patient Tolerated Procedure: Well Procedure Immediate Complications: None
[2016-09-06 00:19] LABS: ABG ALLEN TEST YES; ABG MECHANICAL RATE 16; ARTERIAL BLOOD GAS HCO3 29.5 mmol/L (21-28); ARTERIAL BLOOD GAS MODE A/C; ARTERIAL BLOOD GAS O2 CAPACITY 17.3 mL/dL (16-24); ARTERIAL BLOOD GAS O2 CONTENT 17.2 ML/dL (15-23); ARTERIAL BLOOD GAS PH 7.41 (7.35-7.45); ARTERIAL BLOOD GAS PO2 141 mm/Hg (80-100); ARTERIAL BLOOD HGB O2 SAT 96.6 % (95.0-98.0); ATERIAL BLOOD GAS PEEP 5; CARBOXYHEMOGLOBIN 1.7 % (0.5-1.5); HHB 0.7 % (0.0-5.0)
[2016-09-06] MEDS ORDERED: Sodium Chloride 0.9% 1,000 ML IV SCH (04:30)
[2016-09-06 05:18] LABS: BASO # 0.1 K/uL (0.0-0.2); BASO % 1.1 % (0.0-2.0); EOS % 0.5 % (0.0-4.0); HEMATOCRIT 37.4 % (35.0-51.0); LYMPH # 0.3 K/uL (1.0-4.3); LYMPH % 5.5 % (20.0-40.0); MEAN CELL VOLUME 96.9 fl (80.0-94.0); MEAN CORPUSCULAR HEMOGLOBIN 30.9 pg (27.0-31.0); MEAN CORPUSCULAR HGB CONC 31.9 g/dL (33.0-37.0); MEAN PLATELET VOLUME 11.3 fl (7.2-11.7); MONO # 0.7 K/uL (0.0-0.8); MONO % 14.7 % (0.0-10.0); NEUT # 3.8 K/uL (1.8-7.0); NEUT % 78.2 % (50.0-75.0); RED CELL DISTRIBUTION WIDTH 15.5 % (11.5-14.5); WHITE BLOOD COUNT 4.8 K/uL (4.8-10.8)
[2016-09-06 05:28] LABS: ALB/GLOB RATIO 0.7 (1.0-2.1); ALKALINE PHOSPHATASE 97 U/L (38-126); ALT/SGPT 243 U/L (21-72); AST/SGOT 201 U/L (17-59); BILIRUBIN,TOTAL 2.2 mg/dl (0.2-1.3); BLOOD UREA NITROGEN 19 mg/dl (9-20); CALCIUM 8.3 mg/dL (8.4-10.2); CARBON DIOXIDE 31 mmol/L (22-30); CHLORIDE 109 mmol/L (98-107); GFR AFRICAN-AMERICAN > 60; GLUCOSE,RANDOM 199 mg/dL (75-110); MAGNESIUM 1.9 MG/DL (1.6-2.3); PHOSPHOROUS 2.5 mg/dl (2.5-4.5); POTASSIUM 4.1 MMOL/L (3.6-5.0); SODIUM 149 mmol/l (132-148); TOTAL PROTEIN 5.7 G/DL (6.3-8.2)
[2016-09-06 05:34] LABS: PARTIAL THROMBOPLASTIN TIME 24.3 SECONDS (23.3-32.5)
[2016-09-06 05:52] LABS: ABG ALLEN TEST YES; ABG MECHANICAL RATE 14; ARTERIAL BLOOD GAS HCO3 31.9 mmol/L (21-28); ARTERIAL BLOOD GAS MODE A/C; ARTERIAL BLOOD GAS O2 CAPACITY 16.4 mL/dL (16-24); ARTERIAL BLOOD GAS O2 CONTENT 16.1 ML/dL (15-23); ARTERIAL BLOOD GAS PH 7.46 (7.35-7.45); ARTERIAL BLOOD GAS PO2 81 mm/Hg (80-100); ARTERIAL BLOOD HGB O2 SAT 95.7 % (95.0-98.0); ATERIAL BLOOD GAS PEEP 5; CARBOXYHEMOGLOBIN 1.9 % (0.5-1.5); HHB 1.7 % (0.0-5.0); METHEMOGLOBIN 0.7 % (0.0-3.0)
--- NOTE | 2016-09-06 05:56 | CARD ---
APPROVED REPORT EKG Measurement Heart [id number] <Conclusion> Sinus rhythm with fusion complexes Possible Left atrial enlargement Left axis deviation Low voltage QRS Cannot rule out Anterior infarct, age undetermined Prolonged QT Abnormal ECG
[2016-09-06] MEDS: Insulin Regular 100 units/ml SC SCH ×4 (06:37→22:29)
[2016-09-06] MEDS: Multivitamin With Minerals Tab PO SCH (09:00)
--- NOTE | 2016-09-06 09:09 | PN ---
DATE: 09/05/2016 SUBJECTIVE: The patient is seen today on 09/05/2016. He is lethargic at the time of this examinatio n. PHYSICAL EXAMINATION: VITAL SIGNS: Blood pressure 144/96, temperature 98.4, respiratory rate 26, and pulse of 106. HEENT: Pupils are equal, reacts to light. Normal-appearing mucosa of the conjunctivae, oropharyngea l and nasal membrane mucosa. NECK: Supple, no JVD, no carotid bruit, no lymph node, no thyromegaly. CHEST AND LUNGS: Bilateral symmetrical expansion, good air exchange, no rales, no rhonchi. CARDIOVASCULAR: PMI not localized. S1, S2. No additional sounds. ABDOMEN: Normoactive bowel sounds, no tenderness, no organomegaly, no masses. EXTREMITIES: No cyanosis, no clubbing, no edema. CENTRAL NERVOUS SYSTEM: The patient is and moves all extremities. ASSESSMENT: 1. Impending delirium tremens. 2. Alcohol withdrawal seizure. 3. Aspiration pneumonia. 4. Dilated cardiomyopathy, with ejection fraction. PLAN: We will continue intensive care and we will get . Follow up recommendations as con sulted and coverage with insulin . Continue current IV antibiotics. Canelo Ellison MD cc: [id number] TT: 09/06/2016 00:27:16 Confirmation # [id number] Dictation # [id number]
--- NOTE | 2016-09-06 09:58 | CP.CCUPN ---
CCU Subjective - Physician Review Events Since Last Encounter (Free Text): 09/06/16 13:16 The Patient was seen and examined at the bedside, Medical records reviewed, all clinical/lab/hemodynamic/radiographic data were reviewed and management issues were discussed and formulated, 51 Y/O M with PNHx of HTN, DM, cardiomyopathy, Crohn's disease and EtOH Dependency with Alcoholic Liver Disease Who presented to the ED on 08/30 with new onset seizure in the sitting of Etoh withdrawal and Delirium Tremans. Patient had Head CT scan and MRI on admission (negative for acute bleed/stroke) Hospital course noted for electrolytes imbalance, Thrombocytopenia and Acute kidney injury (renal function better) Patient is more somnolent over last 2-3 days, Ativan and Librium was changed to PRN, he was started on lactulose, last night ABG showed acute respiratory acidosis with CO2 of 106, he was more lethargic and was successfully intubated. Afebrile overnight, HR better Seizure free When sedation was lightened, he is awake, non-focal, moves all extremities and follow basic commands. CCU Objective - Vital Signs / Intake & Output Vital Signs (Last 4 hours): Vital Signs Temp Pulse Resp BP Pulse Ox 09/06/16 08:59 78 114/70 09/06/16 08:00 99.2 F 79 23 129/90 99 09/06/16 07:46 88 25 H 130/85 99 09/06/16 06:00 99.2 F 80 14 118/87 99 Intake and Output (Last 8hrs): Intake & Output 09/05/16 09/06/16 09/06/16 22:59 06:59 14:59 Intake Total 1250 750 150 Output Total 90 650 Balance 1160 100 150 Weight 227 lb 4.8 oz Intake: IV 500 650 150 Intake, Piggyback 450 100 Oral 300 Output: Gastric Amount 100 Stomach 100 Urine 90 550 Urethral ([place]) 90 550 Other: # Bowel Movements 1 - Physical Exam Physical Exam Limitations: Positive for: Altered Mental Status Head: Positive for: Atraumatic, Normocephalic Pupils: Positive for: PERRL. Negative for: Sluggish, Non-Reactive Extroacular Muscles: Positive for: EOMI Conjunctiva: Positive for: Normal. Negative for: Injected, Icteric Mouth: Positive for: Moist Mucous Membranes Nose (External): Positive for: Atraumatic. Negative for: Abrasion Nose (Internal): Positive for: Normal Inspection Neck: Positive for: Normal Range of Motion, Trachea Midline. Negative for: Meningeal Signs, MIDLINE TENDERNESS, Paraspinal Tenderness, JVD, Lymphadenopathy , Bruit, Other Respiratory/Chest: Positive for: Clear to Auscultation, Good Air Exchange, Decreased Breath Sounds. Negative for: Respiratory Distress, Accessory Muscle Use, Wheezes, Rales, Retracting, Rhonchi, Tachypneic Cardiovascular: Positive for: Regular Rate and Rhythm, Normal S1, S2, Peripheal Pulses Present, Tachycardic. Negative for: Murmurs Abdomen: Positive for: Distention, Normal Bowel Sounds. Negative for: Tenderness, Peritoneal Signs Upper Extremity: Positive for: Normal Inspection, NORMAL PULSES. Negative for: Cyanosis, Edema Lower Extremity: Positive for: Normal Inspection, NORMAL PULSES. Negative for: Edema, CALF TENDERNESS Neurological: Positive for: Other (Patient sedated and orally intubated) - Medications Active Medications: Active Medications Generic Name Dose Route Start Last Admin Trade Name Freq PRN Reason Stop Dose Admin Chlordiazepoxide 25 mg 09/04/16 20:28 Librium PO 09/09/16 20:29 Q6 PRN Agitation Folic Acid 1 mg 09/04/16 09:00 09/06/16 08:59 Folic Acid PO 1 mg DAILY CORTNEY Administration Piperacillin Sod/Tazobactam 100 mls @ 100 mls/hr 09/04/16 01:00 09/06/16 09:02 Sod 2.25 gm/ Sodium Chloride IVPB 100 mls/hr Q8 CORTNEY Administration Vancomycin HCl 750 mg/ Sodium 250 mls @ 166.667 mls/hr 09/04/16 09:00 09/06/16 09:00 Chloride IVPB 166.667 mls/hr Q12 CORTNEY Administration Sodium Chloride 1,000 mls @ 75 mls/hr 09/06/16 04:30 09/06/16 04:25 Sodium Chloride 0.9% IV 09/06/16 17:49 75 mls/hr .[id number] CORTNEY Administration Insulin Human Regular 0 units 09/03/16 23:00 09/06/16 06:37 Humulin R SC 3 units ACCU-CHECK CORTNEY Administration Protocol Lactulose 20 gm 09/05/16 11:30 09/06/16 08:59 Enulose PO 20 gm BID CORTNEY Administration Lorazepam 2 mg 09/03/16 20:04 09/04/16 22:00 Ativan IVP 2 mg Q2 PRN Administration Agitation Lorazepam 2 mg 09/05/16 22:16 09/06/16 02:43 Ativan IVP 2 mg Q4H PRN Administration agitation/anxiety on vent Metoprolol Tartrate 12.5 mg 09/04/16 10:30 09/06/16 08:59 Lopressor PO 12.5 mg Q12 CORTNEY Administration Multivitamins/Minerals 1 tab 09/04/16 09:00 09/06/16 09:00 Therapeutic-M Tab PO 1 tab DAILY CORTNEY Administration Pantoprazole Sodium 40 mg 09/06/16 09:00 09/06/16 09:00 Protonix Inj IVP 40 mg DAILY CORTNEY Administration Rifaximin 550 mg 09/05/16 17:00 09/06/16 09:02 Xifaxan PO 550 mg BID CORTNEY Administration Thiamine HCl 100 mg 09/04/16 09:00 09/06/16 09:02 Vitamin B1 Tab PO 100 mg DAILY CORTNEY Administration - Patient Studies Lab Studies: Microbiology Studies 09/01/16 06:05 Blood Culture - Final Blood-Venous NO GROWTH AFTER 5 DAYS Gram Stain - Final TEST NOT PERFORMED 09/04/16 05:15 Blood Culture - Preliminary Blood-Thru Central Line NO GROWTH AFTER 48 HOURS 09/04/16 05:15 Blood Culture - Preliminary Blood-Thru Central Line NO GROWTH AFTER 48 HOURS 09/03/16 09:50 Blood Culture - Preliminary Blood NO GROWTH AFTER 48 HOURS 09/03/16 09:45 Blood Culture - Preliminary Blood NO GROWTH AFTER 48 HOURS Lab Studies 09/06/16 09/06/16 09/06/16 Range/Units 05:40 05:02 04:40 WBC 4.8 (4.8-10.8) K/uL RBC 3.86 L (4.40-5.90) Mil/uL Hgb 11.9 L (12.0-18.0) g/dL Hct 37.4 (35.0-51.0) % MCV 96.9 H (80.0-94.0) fl MCH 30.9 (27.0-31.0) pg MCHC 31.9 L (33.0-37.0) g/dL RDW 15.5 H (11.5-14.5) % Plt Count 52 L (130-400) K/uL MPV 11.3 (7.2-11.7) fl Neut % (Auto) 78.2 H (50.0-75.0) % Lymph % (Auto) 5.5 L (20.0-40.0) % Hubbard % (Auto) 14.7 H (0.0-10.0) % Eos % (Auto) 0.5 (0.0-4.0) % Baso % (Auto) 1.1 (0.0-2.0) % Neut # 3.8 (1.8-7.0) K/uL Lymph # 0.3 L (1.0-4.3) K/uL Hubbard # 0.7 (0.0-0.8) K/uL Eos # 0.0 (0.0-0.7) K/uL Baso # 0.1 (0.0-0.2) K/uL PT (9.6-11.2) SECONDS INR (0.92-1.08) APTT (23.3-32.5) SECONDS Puncture Site pCO2 48 H (35-45) mm/Hg pO2 81 (80-100) mm/Hg HCO3 31.9 H (21-28) mmol/L ABG pH 7.46 H (7.35-7.45) ABG Total CO2 35.6 H (22-28) mmol/L ABG O2 Saturation 98.3 H (95-98) % ABG O2 Content 16.1 (15-23) ML/dL ABG Base Excess 9.0 H (-2.0-3.0) mmol/L ABG Hemoglobin 11.9 (11.7-17.4) g/dL ABG Carboxyhemoglobin 1.9 H (0.5-1.5) % POC ABG HHb (Measured) 1.7 (0.0-5.0) % ABG Methemoglobin 0.7 (0.0-3.0) % ABG O2 Capacity 16.4 (16-24) mL/dL Jim Test Yes ABG Potassium (3.6-5.2) mmol/L A-a O2 Difference 287.0 mm/Hg Hgb O2 Saturation 95.7 (95.0-98.0) % Glucose (75-110) mg/dL Lactate (0.7-2.1) mmol/L Vent Mode A/c Mechanical Rate 14 FiO2 60.0 % Tidal Volume 550 PEEP 5 Pressure Support Inspiratory BiPAP Expiratory BiPAP Blood Gas Comments Crit Value Called To Crit Value Called By 333 Crit Value Read Back Blood Gas Notified Time 553 Sodium (132-148) mmol/l Potassium (3.6-5.0) MMOL/L Chloride (98-107) mmol/L Carbon Dioxide (22-30) mmol/L Anion Gap (10-20) BUN (9-20) mg/dl Creatinine (0.8-1.5) mg/dL Est GFR ( Amer) Est GFR (Non-Af Amer) POC Glucose (mg/dL) 203 H (65-110) mg/dL Random Glucose (75-110) mg/dL Calcium (8.4-10.2) mg/dL Phosphorus (2.5-4.5) mg/dl Magnesium (1.6-2.3) MG/DL Total Bilirubin (0.2-1.3) mg/dl Direct Bilirubin (0.0-0.4) mg/ml AST (17-59) U/L ALT (21-72) U/L Alkaline Phosphatase (38-126) U/L Ammonia (16-60) umo/L Total Protein (6.3-8.2) G/DL Albumin (3.5-5.0) g/dL Globulin (2.2-3.9) gm/dL Albumin/Globulin Ratio (1.0-2.1) Arterial Blood Potassium (3.6-5.2) mmol/L Anti-Mitochondrial Ab (Negative) Anti-Smooth Muscle Ab (Negative) 09/06/16 09/06/16 09/05/16 Range/Units 04:25 00:07 21:50 WBC (4.8-10.8) K/uL RBC (4.40-5.90) Mil/uL Hgb (12.0-18.0) g/dL Hct (35.0-51.0) % MCV (80.0-94.0) fl MCH (27.0-31.0) pg MCHC (33.0-37.0) g/dL RDW (11.5-14.5) % Plt Count (130-400) K/uL MPV (7.2-11.7) fl Neut % (Auto) (50.0-75.0) % Lymph % (Auto) (20.0-40.0) % Hubbard % (Auto) (0.0-10.0) % Eos % (Auto) (0.0-4.0) % Baso % (Auto) (0.0-2.0) % Neut # (1.8-7.0) K/uL Lymph # (1.0-4.3) K/uL Hubbard # (0.0-0.8) K/uL Eos # (0.0-0.7) K/uL Baso # (0.0-0.2) K/uL PT 13.9 H (9.6-11.2) SECONDS INR 1.34 H (0.92-1.08) APTT 24.3 (23.3-32.5) SECONDS Puncture Site pCO2 50 H 106 H* (35-45) mm/Hg pO2 141 H 46 L (80-100) mm/Hg HCO3 29.5 H 24.4 (21-28) mmol/L ABG pH 7.41 7.11 L* (7.35-7.45) ABG Total CO2 33.2 H 37.0 H (22-28) mmol/L ABG O2 Saturation 99.3 H 73.3 L (95-98) % ABG O2 Content 17.2 15.0 (15-23) ML/dL ABG Base Excess 5.9 H 0.4 (-2.0-3.0) mmol/L ABG Hemoglobin 12.5 15.0 (11.7-17.4) g/dL ABG Carboxyhemoglobin 1.7 H 2.2 H (0.5-1.5) % POC ABG HHb (Measured) 0.7 26.0 H (0.0-5.0) % ABG Methemoglobin 1.0 0.6 (0.0-3.0) % ABG O2 Capacity 17.3 20.5 (16-24) mL/dL Jim Test Yes Yes ABG Potassium (3.6-5.2) mmol/L A-a O2 Difference 510.0 107.0 mm/Hg Hgb O2 Saturation 96.6 71.2 L (95.0-98.0) % Glucose (75-110) mg/dL Lactate (0.7-2.1) mmol/L Vent Mode A/c Mechanical Rate 16 16 FiO2 100.0 40.0 % Tidal Volume 550 PEEP 5 Pressure Support 0 Inspiratory BiPAP 12 Expiratory BiPAP 6 Blood Gas Comments E/6 fio2 40% rr 16 b Crit Value Called To Dr gretchen osei Crit Value Called By 333 162 Crit Value Read Back Y Blood Gas Notified Time 2199 Sodium 149 H (132-148) mmol/l Potassium 4.1 (3.6-5.0) MMOL/L Chloride 109 H (98-107) mmol/L Carbon Dioxide 31 H (22-30) mmol/L Anion Gap 13 (10-20) BUN 19 (9-20) mg/dl Creatinine 1.3 (0.8-1.5) mg/dL Est GFR ( Amer) > 60 Est GFR (Non-Af Amer) 58 POC Glucose (mg/dL) (65-110) mg/dL Random Glucose 199 H (75-110) mg/dL Calcium 8.3 L (8.4-10.2) mg/dL Phosphorus 2.5 (2.5-4.5) mg/dl Magnesium 1.9 (1.6-2.3) MG/DL Total Bilirubin 2.2 H (0.2-1.3) mg/dl Direct Bilirubin 1.3 H (0.0-0.4) mg/ml AST 201 H D (17-59) U/L ALT 243 H D (21-72) U/L Alkaline Phosphatase 97 (38-126) U/L Ammonia 11 L (16-60) umo/L Total Protein 5.7 L (6.3-8.2) G/DL Albumin 2.4 L (3.5-5.0) g/dL Globulin 3.3 (2.2-3.9) gm/dL Albumin/Globulin Ratio 0.7 L (1.0-2.1) Arterial Blood Potassium (3.6-5.2) mmol/L Anti-Mitochondrial Ab (Negative) Anti-Smooth Muscle Ab (Negative) 09/05/16 09/05/16 09/05/16 Range/Units 20:35 18:40 15:59 WBC (4.8-10.8) K/uL RBC (4.40-5.90) Mil/uL Hgb (12.0-18.0) g/dL Hct (35.0-51.0) % MCV (80.0-94.0) fl MCH (27.0-31.0) pg MCHC (33.0-37.0) g/dL RDW (11.5-14.5) % Plt Count (130-400) K/uL MPV (7.2-11.7) fl Neut % (Auto) (50.0-75.0) % Lymph % (Auto) (20.0-40.0) % Hubbard % (Auto) (0.0-10.0) % Eos % (Auto) (0.0-4.0) % Baso % (Auto) (0.0-2.0) % Neut # (1.8-7.0) K/uL Lymph # (1.0-4.3) K/uL Hubbard # (0.0-0.8) K/uL Eos # (0.0-0.7) K/uL Baso # (0.0-0.2) K/uL PT (9.6-11.2) SECONDS INR (0.92-1.08) APTT (23.3-32.5) SECONDS Puncture Site rt rad pCO2 59 H (35-45) mm/Hg pO2 68 L (80-100) mm/Hg HCO3 27.6 (21-28) mmol/L ABG pH 7.33 L (7.35-7.45) ABG Total CO2 32.9 H (22-28) mmol/L ABG O2 Saturation 95.4 (95-98) % ABG O2 Content (15-23) ML/dL ABG Base Excess 3.6 H (-2.0-3.0) mmol/L ABG Hemoglobin (11.7-17.4) g/dL ABG Carboxyhemoglobin (0.5-1.5) % POC ABG HHb (Measured) (0.0-5.0) % ABG Methemoglobin (0.0-3.0) % ABG O2 Capacity (16-24) mL/dL Jim Test Yes ABG Potassium 4.8 (3.6-5.2) mmol/L A-a O2 Difference 29.0 mm/Hg Hgb O2 Saturation (95.0-98.0) % Glucose 244 H (75-110) mg/dL Lactate 1.7 (0.7-2.1) mmol/L Vent Mode Mechanical Rate FiO2 24.0 % Tidal Volume PEEP Pressure Support Inspiratory BiPAP Expiratory BiPAP Blood Gas Comments Crit Value Called To Crit Value Called By Crit Value Read Back Blood Gas Notified Time Sodium 144.0 (132-148) mmol/l Potassium (3.6-5.0) MMOL/L Chloride 109.0 H (98-107) mmol/L Carbon Dioxide (22-30) mmol/L Anion Gap (10-20) BUN (9-20) mg/dl Creatinine (0.8-1.5) mg/dL Est GFR ( Amer) Est GFR (Non-Af Amer) POC Glucose (mg/dL) 235 H 219 H (65-110) mg/dL Random Glucose (75-110) mg/dL Calcium (8.4-10.2) mg/dL Phosphorus (2.5-4.5) mg/dl Magnesium (1.6-2.3) MG/DL Total Bilirubin (0.2-1.3) mg/dl Direct Bilirubin (0.0-0.4) mg/ml AST (17-59) U/L ALT (21-72) U/L Alkaline Phosphatase (38-126) U/L Ammonia (16-60) umo/L Total Protein (6.3-8.2) G/DL Albumin (3.5-5.0) g/dL Globulin (2.2-3.9) gm/dL Albumin/Globulin Ratio (1.0-2.1) Arterial Blood Potassium 4.8 (3.6-5.2) mmol/L Anti-Mitochondrial Ab (Negative) Anti-Smooth Muscle Ab (Negative) 09/05/16 09/03/16 Range/Units 11:40 16:43 WBC (4.8-10.8) K/uL RBC (4.40-5.90) Mil/uL Hgb (12.0-18.0) g/dL Hct (35.0-51.0) % MCV (80.0-94.0) fl MCH (27.0-31.0) pg MCHC (33.0-37.0) g/dL RDW (11.5-14.5) % Plt Count (130-400) K/uL MPV (7.2-11.7) fl Neut % (Auto) (50.0-75.0) % Lymph % (Auto) (20.0-40.0) % Hubbard % (Auto) (0.0-10.0) % Eos % (Auto) (0.0-4.0) % Baso % (Auto) (0.0-2.0) % Neut # (1.8-7.0) K/uL Lymph # (1.0-4.3) K/uL Hubbard # (0.0-0.8) K/uL Eos # (0.0-0.7) K/uL Baso # (0.0-0.2) K/uL PT (9.6-11.2) SECONDS INR (0.92-1.08) APTT (23.3-32.5) SECONDS Puncture Site pCO2 (35-45) mm/Hg pO2 (80-100) mm/Hg HCO3 (21-28) mmol/L ABG pH (7.35-7.45) ABG Total CO2 (22-28) mmol/L ABG O2 Saturation (95-98) % ABG O2 Content (15-23) ML/dL ABG Base Excess (-2.0-3.0) mmol/L ABG Hemoglobin (11.7-17.4) g/dL ABG Carboxyhemoglobin (0.5-1.5) % POC ABG HHb (Measured) (0.0-5.0) % ABG Methemoglobin (0.0-3.0) % ABG O2 Capacity (16-24) mL/dL Jim Test ABG Potassium (3.6-5.2) mmol/L A-a O2 Difference mm/Hg Hgb O2 Saturation (95.0-98.0) % Glucose (75-110) mg/dL Lactate (0.7-2.1) mmol/L Vent Mode Mechanical Rate FiO2 % Tidal Volume PEEP Pressure Support Inspiratory BiPAP Expiratory BiPAP Blood Gas Comments Crit Value Called To Crit Value Called By Crit Value Read Back Blood Gas Notified Time Sodium (132-148) mmol/l Potassium (3.6-5.0) MMOL/L Chloride (98-107) mmol/L Carbon Dioxide (22-30) mmol/L Anion Gap (10-20) BUN (9-20) mg/dl Creatinine (0.8-1.5) mg/dL Est GFR ( Amer) Est GFR (Non-Af Amer) POC Glucose (mg/dL) 218 H (65-110) mg/dL Random Glucose (75-110) mg/dL Calcium (8.4-10.2) mg/dL Phosphorus (2.5-4.5) mg/dl Magnesium (1.6-2.3) MG/DL Total Bilirubin (0.2-1.3) mg/dl Direct Bilirubin (0.0-0.4) mg/ml AST (17-59) U/L ALT (21-72) U/L Alkaline Phosphatase (38-126) U/L Ammonia (16-60) umo/L Total Protein (6.3-8.2) G/DL Albumin (3.5-5.0) g/dL Globulin (2.2-3.9) gm/dL Albumin/Globulin Ratio (1.0-2.1) Arterial Blood Potassium (3.6-5.2) mmol/L Anti-Mitochondrial Ab Negative (Negative) Anti-Smooth Muscle Ab Negative (Negative) Laboratory Results - last 24 hr 09/03/16 09/05/16 09/05/16 16:43 11:40 15:59 WBC RBC Hgb Hct MCV MCH MCHC RDW Plt Count MPV Neut % (Auto) Lymph % (Auto) Hubbard % (Auto) Eos % (Auto) Baso % (Auto) Neut # Lymph # Hubbard # Eos # Baso # PT INR APTT Puncture Site pCO2 pO2 HCO3 ABG pH ABG Total CO2 ABG O2 Saturation ABG O2 Content ABG Base Excess ABG Hemoglobin ABG Carboxyhemoglobin POC ABG HHb (Measured) ABG Methemoglobin ABG O2 Capacity Jim Test ABG Potassium A-a O2 Difference Hgb O2 Saturation Sodium Chloride Glucose Lactate Vent Mode Mechanical Rate FiO2 Tidal Volume PEEP Pressure Support Inspiratory BiPAP Expiratory BiPAP Blood Gas Comments Crit Value Called To Crit Value Called By Crit Value Read Back Blood Gas Notified Time Potassium Carbon Dioxide Anion Gap BUN Creatinine Est GFR ( Amer) Est GFR (Non-Af Amer) POC Glucose (mg/dL) 218 H 219 H Random Glucose Calcium Phosphorus Magnesium Total Bilirubin Direct Bilirubin AST ALT Alkaline Phosphatase Ammonia Total Protein Albumin Globulin Albumin/Globulin Ratio Arterial Blood Potassium Anti-Mitochondrial Ab Negative Anti-Smooth Muscle Ab Negative 09/05/16 09/05/16 09/05/16 18:40 20:35 21:50 WBC RBC Hgb Hct MCV MCH MCHC RDW Plt Count MPV Neut % (Auto) Lymph % (Auto) Hubbard % (Auto) Eos % (Auto) Baso % (Auto) Neut # Lymph # Hubbard # Eos # Baso # PT INR APTT Puncture Site rt rad pCO2 59 H 106 H* pO2 68 L 46 L HCO3 27.6 24.4 ABG pH 7.33 L 7.11 L* ABG Total CO2 32.9 H 37.0 H ABG O2 Saturation 95.4 73.3 L ABG O2 Content 15.0 ABG Base Excess 3.6 H 0.4 ABG Hemoglobin 15.0 ABG Carboxyhemoglobin 2.2 H POC ABG HHb (Measured) 26.0 H ABG Methemoglobin 0.6 ABG O2 Capacity 20.5 Jim Test Yes Yes ABG Potassium 4.8 A-a O2 Difference 29.0 107.0 Hgb O2 Saturation 71.2 L Sodium 144.0 Chloride 109.0 H Glucose 244 H Lactate 1.7 Vent Mode Mechanical Rate 16 FiO2 24.0 40.0 Tidal Volume PEEP Pressure Support 0 Inspiratory BiPAP 12 Expiratory BiPAP 6 Blood Gas Comments E/6 fio2 40% rr 16 b Crit Value Called To Dr gretchen osei Crit Value Called By 162 Crit Value Read Back Y Blood Gas Notified Time 2200 Potassium Carbon Dioxide Anion Gap BUN Creatinine Est GFR ( Amer) Est GFR (Non-Af Amer) POC Glucose (mg/dL) 235 H Random Glucose Calcium Phosphorus Magnesium Total Bilirubin Direct Bilirubin AST ALT Alkaline Phosphatase Ammonia Total Protein Albumin Globulin Albumin/Globulin Ratio Arterial Blood Potassium 4.8 Anti-Mitochondrial Ab Anti-Smooth Muscle Ab 09/06/16 09/06/16 09/06/16 00:07 04:25 04:40 WBC 4.8 RBC 3.86 L Hgb 11.9 L Hct 37.4 MCV 96.9 H MCH 30.9 MCHC 31.9 L RDW 15.5 H Plt Count 52 L MPV 11.3 Neut % (Auto) 78.2 H Lymph % (Auto) 5.5 L Hubbard % (Auto) 14.7 H Eos % (Auto) 0.5 Baso % (Auto) 1.1 Neut # 3.8 Lymph # 0.3 L Hubbard # 0.7 Eos # 0.0 Baso # 0.1 PT 13.9 H INR 1.34 H APTT 24.3 Puncture Site pCO2 50 H pO2 141 H HCO3 29.5 H ABG pH 7.41 ABG Total CO2 33.2 H ABG O2 Saturation 99.3 H ABG O2 Content 17.2 ABG Base Excess 5.9 H ABG Hemoglobin 12.5 ABG Carboxyhemoglobin 1.7 H POC ABG HHb (Measured) 0.7 ABG Methemoglobin 1.0 ABG O2 Capacity 17.3 Jim Test Yes ABG Potassium A-a O2 Difference 510.0 Hgb O2 Saturation 96.6 Sodium 149 H Chloride 109 H Glucose Lactate Vent Mode A/c Mechanical Rate 16 FiO2 100.0 Tidal Volume 550 PEEP 5 Pressure Support Inspiratory BiPAP Expiratory BiPAP Blood Gas Comments Crit Value Called To Crit Value Called By 333 Crit Value Read Back Blood Gas Notified Time 19 Potassium 4.1 Carbon Dioxide 31 H Anion Gap 13 BUN 19 Creatinine 1.3 Est GFR ( Amer) > 60 Est GFR (Non-Af Amer) 58 POC Glucose (mg/dL) Random Glucose 199 H Calcium 8.3 L Phosphorus 2.5 Magnesium 1.9 Total Bilirubin 2.2 H Direct Bilirubin 1.3 H AST 201 H D ALT 243 H D Alkaline Phosphatase 97 Ammonia 11 L Total Protein 5.7 L Albumin 2.4 L Globulin 3.3 Albumin/Globulin Ratio 0.7 L Arterial Blood Potassium Anti-Mitochondrial Ab Anti-Smooth Muscle Ab 09/06/16 09/06/16 05:02 05:40 WBC RBC Hgb Hct MCV MCH MCHC RDW Plt Count MPV Neut % (Auto) Lymph % (Auto) Hubbard % (Auto) Eos % (Auto) Baso % (Auto) Neut # Lymph # Hubbard # Eos # Baso # PT INR APTT Puncture Site pCO2 48 H pO2 81 HCO3 31.9 H ABG pH 7.46 H ABG Total CO2 35.6 H ABG O2 Saturation 98.3 H ABG O2 Content 16.1 ABG Base Excess 9.0 H ABG Hemoglobin 11.9 ABG Carboxyhemoglobin 1.9 H POC ABG HHb (Measured) 1.7 ABG Methemoglobin 0.7 ABG O2 Capacity 16.4 Jim Test Yes ABG Potassium A-a O2 Difference 287.0 Hgb O2 Saturation 95.7 Sodium Chloride Glucose Lactate Vent Mode A/c Mechanical Rate 14 FiO2 60.0 Tidal Volume 550 PEEP 5 Pressure Support Inspiratory BiPAP Expiratory BiPAP Blood Gas Comments Crit Value Called To Crit Value Called By 333 Crit Value Read Back Blood Gas Notified Time 553 Potassium Carbon Dioxide Anion Gap BUN Creatinine Est GFR ( Amer) Est GFR (Non-Af Amer) POC Glucose (mg/dL) 203 H Random Glucose Calcium Phosphorus Magnesium Total Bilirubin Direct Bilirubin AST ALT Alkaline Phosphatase Ammonia Total Protein Albumin Globulin Albumin/Globulin Ratio Arterial Blood Potassium Anti-Mitochondrial Ab Anti-Smooth Muscle Ab Fingerstick Blood Sugar Results: 203 Critical Care Progress Note - Nutrition Nutrition: Nutrition Category Date Time Status Liquid Diet [DIET] Diets 09/04/16 Lunch Active Assessment/Plan (1) Acute respiratory failure with hypercapnia Current Visit: Yes Status: Acute Comment: IV antibiotics with IV Vanco and Zosyn Aggressive Pulmonary toilets, duonebs q4h. Wean off Fio2 Daily SAT/SBT GI/DVT prophylaxis (2) Altered mental status Current Visit: Yes Status: Acute Comment: Multifacrorial, Toxic/Metabolic encephalopathy frequent neuro-check, Seizure precautions. Head CT scan and MRI on admission negative (3) Hepatic encephalopathy Current Visit: Yes Status: Acute Comment: Lactulose 20 gm PO BID Rifaximin 550 mg PO BID (4) Alcohol withdrawal seizure Current Visit: Yes Status: Acute Comment: Seizure free since admission (5) Aspiration pneumonia Current Visit: Yes Status: Acute Comment: Vancomycin 750 mg IVPB Q12 CORTNEY Piperacillin Sod/Tazobactam 2.25 gm IVPB Q8 CORTNEY (6) Thrombocytopenia Current Visit: Yes Status: Acute Comment: No signs of active bleed at this time (7) Congestive cardiomyopathy Current Visit: Yes Status: Acute - Assessment and Plan (Free Text) Assessment: TOTAL CRITICAL CARE TIME 62 MINUTES
--- NOTE | 2016-09-06 10:53 | CP.PCM.PN ---
Subjective - Date & Time of Evaluation Date of Evaluation: 09/06/16 Time of Evaluation: 10:51 - Subjective Subjective: Pt is intubated. the cbc has been more or less stable, so I will sign off the case. Please recall if needed Objective - Vital Signs/Intake and Output Vital Signs (last 24 hours): Temp Pulse Resp BP Pulse Ox 99.2 F 78 23 114/70 99 09/06/16 08:00 09/06/16 08:59 09/06/16 08:00 09/06/16 08:59 09/06/16 08:00 Intake and Output: 09/06/16 09/06/16 06:59 18:59 Intake Total 1100 150 Output Total 650 Balance 450 150 - Medications Medications: Current Medications Chlordiazepoxide (Librium) 25 mg PO Q6 PRN PRN Reason: Agitation Stop: 09/09/16 20:29 Folic Acid (Folic Acid) 1 mg PO DAILY [facility] Last Admin: 09/06/16 08:59 Dose: 1 mg Piperacillin Sod/Tazobactam (Sod 2.25 gm/ Sodium Chloride) 100 mls @ 100 mls/ hr IVPB Q8 [facility] Last Admin: 09/06/16 09:02 Dose: 100 mls/hr Vancomycin HCl 750 mg/ Sodium (Chloride) 250 mls @ 166.667 mls/hr IVPB Q12 [facility] Last Admin: 09/06/16 09:00 Dose: 166.667 mls/hr Sodium Chloride (Sodium Chloride 0.9%) 1,000 mls @ 75 mls/hr IV .[id number] [facility] Stop: 09/06/16 17:49 Last Admin: 09/06/16 04:25 Dose: 75 mls/hr Insulin Human Regular (Humulin R) 0 units SC ACCU-CHECK OCRTNEY PRN Reason: Protocol Last Admin: 09/06/16 06:37 Dose: 3 units Lactulose (Enulose) 20 gm PO BID [facility] Last Admin: 09/06/16 08:59 Dose: 20 gm Lorazepam (Ativan) 2 mg IVP Q2 PRN PRN Reason: Agitation Last Admin: 09/04/16 22:00 Dose: 2 mg Lorazepam (Ativan) 2 mg IVP Q4H PRN PRN Reason: agitation/anxiety on vent Last Admin: 09/06/16 10:27 Dose: 2 mg Metoprolol Tartrate (Lopressor) 12.5 mg PO Q12 [facility] Last Admin: 09/06/16 08:59 Dose: 12.5 mg Multivitamins/Minerals (Therapeutic-M Tab) 1 tab PO DAILY [facility] Last Admin: 09/06/16 09:00 Dose: 1 tab Pantoprazole Sodium (Protonix Inj) 40 mg IVP DAILY [facility] Last Admin: 09/06/16 09:00 Dose: 40 mg Rifaximin (Xifaxan) 550 mg PO BID [facility] Last Admin: 09/06/16 09:02 Dose: 550 mg Thiamine HCl (Vitamin B1 Tab) 100 mg PO DAILY [facility] Last Admin: 09/06/16 09:02 Dose: 100 mg - Labs Labs: 09/06/16 04:40 09/06/16 04:25 PT 13.9 SECONDS (9.6-11.2) H 09/06/16 04:25 INR 1.34 (0.92-1.08) H 09/06/16 04:25 APTT 24.3 SECONDS (23.3-32.5) 09/06/16 04:25
--- NOTE | 2016-09-06 12:59 | CP.PCM.PN ---
Subjective - Date & Time of Evaluation Date of Evaluation: 09/06/16 Time of Evaluation: 12:15 - Subjective Subjective: Needed ventilatory support when CO2 retention developed this AM Now on 100% FiO2 (Pulse Ox 98 % Sinus rhythm at 90 BPM/ BP 128/70 mm Hg Rare PVCs (No sustained ventr ectopy) Labs noted: remains thrombocytopenic BUN/ Creatinine and K+ normal AST/ALT and Bilirubin elevated S Amonia normal. Objective - Vital Signs/Intake and Output Vital Signs (last 24 hours): Temp Pulse Resp BP Pulse Ox 98.8 F 105 H 14 139/92 H 100 09/06/16 12:00 09/06/16 12:00 09/06/16 12:00 09/06/16 12:00 09/06/16 12:00 Intake and Output: 09/06/16 09/06/16 06:59 18:59 Intake Total 1100 650 Output Total 650 Balance 450 650 - Medications Medications: Current Medications Chlordiazepoxide (Librium) 25 mg PO Q6 PRN PRN Reason: Agitation Stop: 09/09/16 20:29 Folic Acid (Folic Acid) 1 mg PO DAILY [facility] Last Admin: 09/06/16 08:59 Dose: 1 mg Piperacillin Sod/Tazobactam (Sod 2.25 gm/ Sodium Chloride) 100 mls @ 100 mls/ hr IVPB Q8 [facility] Last Admin: 09/06/16 09:02 Dose: 100 mls/hr Vancomycin HCl 750 mg/ Sodium (Chloride) 250 mls @ 166.667 mls/hr IVPB Q12 [facility] Last Admin: 09/06/16 09:00 Dose: 166.667 mls/hr Sodium Chloride (Sodium Chloride 0.9%) 1,000 mls @ 75 mls/hr IV .[id number] [facility] Stop: 09/06/16 17:49 Last Admin: 09/06/16 04:25 Dose: 75 mls/hr Insulin Human Regular (Humulin R) 0 units SC ACCU-CHECK [facility] PRN Reason: Protocol Last Admin: 09/06/16 11:24 Dose: 2 units Lactulose (Enulose) 20 gm PO BID [facility] Last Admin: 09/06/16 08:59 Dose: 20 gm Lorazepam (Ativan) 2 mg IVP Q2 PRN PRN Reason: Agitation Last Admin: 09/04/16 22:00 Dose: 2 mg Lorazepam (Ativan) 2 mg IVP Q4H PRN PRN Reason: agitation/anxiety on vent Last Admin: 09/06/16 10:27 Dose: 2 mg Metoprolol Tartrate (Lopressor) 12.5 mg PO Q12 [facility] Last Admin: 09/06/16 08:59 Dose: 12.5 mg Multivitamins/Minerals (Therapeutic-M Tab) 1 tab PO DAILY [facility] Last Admin: 09/06/16 09:00 Dose: 1 tab Pantoprazole Sodium (Protonix Inj) 40 mg IVP DAILY [facility] Last Admin: 09/06/16 09:00 Dose: 40 mg Rifaximin (Xifaxan) 550 mg PO BID [facility] Last Admin: 09/06/16 09:02 Dose: 550 mg Thiamine HCl (Vitamin B1 Tab) 100 mg PO DAILY [facility] Last Admin: 09/06/16 09:02 Dose: 100 mg - Labs Labs: 09/06/16 04:40 09/06/16 04:25 PT 13.9 SECONDS (9.6-11.2) H 09/06/16 04:25 INR 1.34 (0.92-1.08) H 09/06/16 04:25 APTT 24.3 SECONDS (23.3-32.5) 09/06/16 04:25
--- NOTE | 2016-09-06 13:27 | RAD ---
PROCEDURE: CHEST RADIOGRAPH, 1 VIEW HISTORY: vented COMPARISON: 09/05/2016 FINDINGS: LUNGS: Diffusely increased density of the right lung without focal infiltrate. No left-sided infiltrate. Possible dependent pleural fluid. Right costophrenic angle is Annita E opacified. No evidence of left pleural effusion. PLEURA: As above CARDIOVASCULAR: Normal heart size. ET tube appropriately positioned approximately 5 cm above the tracheal maxwell. Nasogastric tube extends to left upper quadrant of abdomen. OSSEOUS STRUCTURES: No significant abnormalities. VISUALIZED UPPER ABDOMEN: Normal. OTHER FINDINGS: None. IMPRESSION: Probable right pleural effusion layering dependently. No focal consolidation. ET tube and NG tube noted.
--- NOTE | 2016-09-06 13:49 | RAD ---
PROCEDURE: CHEST RADIOGRAPH, 1 VIEW HISTORY: ET tube placement COMPARISON: 09/05/2016 FINDINGS: The endotracheal tube terminates 3.5 cm proximal to the maxwell. The nasogastric tube terminates in the stomach. LUNGS: There is interval improved aeration in the right lung with residual bibasilar airspace disease and pleural effusions. PLEURA: No pneumothorax . CARDIOVASCULAR: The heart is enlarged. OSSEOUS STRUCTURES: No significant abnormalities. VISUALIZED UPPER ABDOMEN: Normal. OTHER FINDINGS: None. IMPRESSION: Interval improved aeration in the right lung persistent bibasilar airspace disease and pleural effusions.
--- NOTE | 2016-09-06 14:53 | CP.PCM.PN ---
Subjective - Date & Time of Evaluation Date of Evaluation: 09/06/16 Time of Evaluation: 14:45 - Subjective Subjective: Patient seen in MICU this afternoon. Intubated overnight for CO2 retention. On sedation. Moving bowels on lactulose. Afebrile. Objective - Vital Signs/Intake and Output Vital Signs (last 24 hours): Temp Pulse Resp BP Pulse Ox 98.8 F 105 H 14 139/92 H 100 09/06/16 12:00 09/06/16 12:00 09/06/16 12:00 09/06/16 12:00 09/06/16 12:00 Intake and Output: 09/06/16 09/06/16 06:59 18:59 Intake Total 1100 650 Output Total 650 Balance 450 650 - Medications Medications: Current Medications Chlordiazepoxide (Librium) 25 mg PO Q6 PRN PRN Reason: Agitation Stop: 09/09/16 20:29 Folic Acid (Folic Acid) 1 mg PO DAILY [facility] Last Admin: 09/06/16 08:59 Dose: 1 mg Piperacillin Sod/Tazobactam (Sod 2.25 gm/ Sodium Chloride) 100 mls @ 100 mls/ hr IVPB Q8 [facility] Last Admin: 09/06/16 09:02 Dose: 100 mls/hr Vancomycin HCl 750 mg/ Sodium (Chloride) 250 mls @ 166.667 mls/hr IVPB Q12 [facility] Last Admin: 09/06/16 09:00 Dose: 166.667 mls/hr Sodium Chloride (Sodium Chloride 0.9%) 1,000 mls @ 75 mls/hr IV .[id number] [facility] Stop: 09/06/16 17:49 Last Admin: 09/06/16 04:25 Dose: 75 mls/hr Insulin Human Regular (Humulin R) 0 units SC ACCU-CHECK [facility] PRN Reason: Protocol Last Admin: 09/06/16 11:24 Dose: 2 units Lactulose (Enulose) 20 gm PO BID [facility] Last Admin: 09/06/16 08:59 Dose: 20 gm Lorazepam (Ativan) 2 mg IVP Q2 PRN PRN Reason: Agitation Last Admin: 09/04/16 22:00 Dose: 2 mg Lorazepam (Ativan) 2 mg IVP Q4H PRN PRN Reason: agitation/anxiety on vent Last Admin: 09/06/16 14:23 Dose: 2 mg Metoprolol Tartrate (Lopressor) 12.5 mg PO Q12 [facility] Last Admin: 09/06/16 08:59 Dose: 12.5 mg Multivitamins/Minerals (Therapeutic-M Tab) 1 tab PO DAILY [facility] Last Admin: 09/06/16 09:00 Dose: 1 tab Pantoprazole Sodium (Protonix Inj) 40 mg IVP DAILY [facility] Last Admin: 09/06/16 09:00 Dose: 40 mg Rifaximin (Xifaxan) 550 mg PO BID [facility] Last Admin: 09/06/16 09:02 Dose: 550 mg Thiamine HCl (Vitamin B1 Tab) 100 mg PO DAILY [facility] Last Admin: 09/06/16 09:02 Dose: 100 mg - Labs Labs: 09/06/16 04:40 09/06/16 04:25 PT 13.9 SECONDS (9.6-11.2) H 09/06/16 04:25 INR 1.34 (0.92-1.08) H 09/06/16 04:25 APTT 24.3 SECONDS (23.3-32.5) 09/06/16 04:25 - Head Exam Additional comments: Intubated Sedated Coarse breath sounds S1 S2 normal. Tachycardia + No murmurs Abdomen distended. Surgical scar well healed. No ascites palpable. LE- 1+ edema B/L Assessment and Plan - Assessment and Plan (Free Text) Assessment: 51yo male with PMHx significant for DM, HTN, EtOH abuse who presented to the ED following a seizure, suspected 2/2 alcohol withdrawal now intubated for airway protection. Is having adequate BM on lactulose. Currently sedated. Hepatitis panel and autoimmune panel negative. LFT downtrending Plan: -MDF does not meet criteria to start methylprednisolone therapy, continue to monitor PT/INR/Bilirubin -Abdominal U/S reviewed consistent with cirrhosis -Hepatitis panel negative -Autoimmune negative -Continue Lactulose 20gm PO BID, titrate to 1-2BM/day through NGT -Continue Xifaxan 550mg PO BID -Check daily CBC, CMP, INR for MELD calculations - GI/DVT prophylaxis
--- NOTE | 2016-09-06 18:05 | CP.PCM.PN ---
Subjective - Date & Time of Evaluation Date of Evaluation: 09/06/16 Time of Evaluation: 13:00 - Subjective Subjective: SEEN ON RENAL F/U IN ICU INTUBATED 2/2 CO2 RETENTION RENAL FUNCTION BACK TO WNL NA WENT UP TO 149 ALL PREVIOUS EMR REVIEWED Objective - Vital Signs/Intake and Output Vital Signs (last 24 hours): Temp Pulse Resp BP Pulse Ox 98.1 F 97 H 17 133/80 98 09/06/16 16:00 09/06/16 17:47 09/06/16 17:47 09/06/16 17:47 09/06/16 17:47 Intake and Output: 09/06/16 09/06/16 06:59 18:59 Intake Total 1100 1200 Output Total 650 700 Balance 450 500 - Medications Medications: Current Medications Chlordiazepoxide (Librium) 25 mg PO Q6 PRN PRN Reason: Agitation Stop: 09/09/16 20:29 Folic Acid (Folic Acid) 1 mg PO DAILY [facility] Last Admin: 09/06/16 08:59 Dose: 1 mg Piperacillin Sod/Tazobactam (Sod 2.25 gm/ Sodium Chloride) 100 mls @ 100 mls/ hr IVPB Q8 [facility] Last Admin: 09/06/16 16:33 Dose: 100 mls/hr Vancomycin HCl 750 mg/ Sodium (Chloride) 250 mls @ 166.667 mls/hr IVPB Q12 [facility] Last Admin: 09/06/16 09:00 Dose: 166.667 mls/hr Propofol (Diprivan) 100 mls @ 3.093 mls/hr IV .Q24H [facility]; 5 MCG/KG/MIN PRN Reason: Protocol Stop: 09/07/16 16:46 Last Titration: 09/06/16 17:46 Dose: 12.5 mcg/kg/min Dextrose (Dextrose 5% In Water 1000 Ml) 1,000 mls @ 75 mls/hr IV .[id number] [facility] Stop: 09/07/16 17:16 Insulin Human Regular (Humulin R) 0 units SC ACCU-CHECK [facility] PRN Reason: Protocol Last Admin: 09/06/16 16:31 Dose: Not Given Lactulose (Enulose) 20 gm PO BID [facility] Last Admin: 09/06/16 16:31 Dose: 20 gm Lorazepam (Ativan) 2 mg IVP Q2 PRN PRN Reason: Agitation Last Admin: 09/04/16 22:00 Dose: 2 mg Lorazepam (Ativan) 2 mg IVP Q4H PRN PRN Reason: agitation/anxiety on vent Last Admin: 09/06/16 14:23 Dose: 2 mg Metoprolol Tartrate (Lopressor) 12.5 mg PO Q12 [facility] Last Admin: 09/06/16 08:59 Dose: 12.5 mg Multivitamins/Minerals (Therapeutic-M Tab) 1 tab PO DAILY [facility] Last Admin: 09/06/16 09:00 Dose: 1 tab Pantoprazole Sodium (Protonix Inj) 40 mg IVP DAILY [facility] Last Admin: 09/06/16 09:00 Dose: 40 mg Rifaximin (Xifaxan) 550 mg PO BID [facility] Last Admin: 09/06/16 16:32 Dose: 550 mg Thiamine HCl (Vitamin B1 Tab) 100 mg PO DAILY [facility] Last Admin: 09/06/16 09:02 Dose: 100 mg - Labs Labs: 09/06/16 04:40 09/06/16 04:25 PT 13.9 SECONDS (9.6-11.2) H 09/06/16 04:25 INR 1.34 (0.92-1.08) H 09/06/16 04:25 APTT 24.3 SECONDS (23.3-32.5) 09/06/16 04:25 Assessment and Plan - Assessment and Plan (Free Text) Assessment: NONA .. RENAL FUNCTION BACK TO NORMAL HYPER NATREMIA .. CHANGE IVF TO D5W AT 75 CC/H VDRF .. 2/2 EMPERATRIZ RETENTION MULTIPLE CO MORBIDITIES P : CHANGE IVF TO ELIGIO AT 75 CC/H
--- NOTE | 2016-09-06 20:44 | PN ---
DATE: 09/06/2016 SUBJECTIVE: The patient is seen today, 09/06/2016. He was intubated due to respiratory distress with CO2 retention and respiratory acidosis. PHYSICAL EXAMINATION: VITAL SIGNS: Blood pressure 114/70, temperature 98.1, respiratory rate 20, and pulse 104. HEENT: Pupils equal, reacts to light. Normal-appearing mucosa of the conjunctivae, oropharyngeal an d nasal membrane mucosa. NECK: Supple, no JVD, no carotid bruit, no lymph node, no thyromegaly. CHEST AND LUNGS: Bilateral symmetrical expansion, good air exchange, no rales, no rhonchi. CARDIOVASCULAR: PMI not localized. S1, S2. No additional sounds. ABDOMEN: Normoactive bowel sounds, no tenderness, no organomegaly, no masses. EXTREMITIES: No cyanosis, no clubbing, no edema. CENTRAL NERVOUS SYSTEM: The patient is sedated on ventilator. ASSESSMENT: 1. Respiratory failure with CO2 retention and respiratory acidosis. 2. Alcohol withdrawal seizure. 3. Impending delirium tremens. 4. Dilated cardiomyopathy with ejection fraction of 20% with severe mitral regurgitation. 5. Bacteremia. 6. Aspiration pneumonia. PLAN: Continue current IV antibiotics and ventilator management as per boil off worker. Discussed the p atient's condition with the boil off worker and motor electrician. Discussed the patient's condition also with his at the bedside. Canelo Ellison MD cc: [id number] TT: 09/06/2016 20:43:34 Confirmation # [id number] Dictation # [id number] leslie
[2016-09-07 05:25] LABS: HEMATOCRIT 38.8 % (35.0-51.0); MEAN CORPUSCULAR HEMOGLOBIN 30.5 pg (27.0-31.0); MEAN CORPUSCULAR HGB CONC 31.8 g/dL (33.0-37.0); RED CELL DISTRIBUTION WIDTH 15.7 % (11.5-14.5); WHITE BLOOD COUNT 5.2 K/uL (4.8-10.8)
[2016-09-07 05:37] LABS: ALB/GLOB RATIO 0.8 (1.0-2.1); ALKALINE PHOSPHATASE 118 U/L (38-126); ALT/SGPT 184 U/L (21-72); AST/SGOT 162 U/L (17-59); BILIRUBIN,TOTAL 2.3 mg/dl (0.2-1.3); BLOOD UREA NITROGEN 21 mg/dl (9-20); CALCIUM 8.6 mg/dL (8.4-10.2); CARBON DIOXIDE 27 mmol/L (22-30); CHLORIDE 111 mmol/L (98-107); GFR AFRICAN-AMERICAN > 60; GLUCOSE,RANDOM 121 mg/dL (75-110); POTASSIUM 3.9 MMOL/L (3.6-5.0); SODIUM 151 mmol/l (132-148); TOTAL PROTEIN 6.2 G/DL (6.3-8.2)
[2016-09-07 06:03] LABS: ABG ALLEN TEST YES; ABG MECHANICAL RATE 14; ARTERIAL BLOOD GAS HCO3 30.8 mmol/L (21-28); ARTERIAL BLOOD GAS MODE A/C; ARTERIAL BLOOD GAS O2 CAPACITY 17.8 mL/dL (16-24); ARTERIAL BLOOD GAS O2 CONTENT 17.5 ML/dL (15-23); ARTERIAL BLOOD GAS PH 7.48 (7.35-7.45); ARTERIAL BLOOD GAS PO2 90 mm/Hg (80-100); ARTERIAL BLOOD HGB O2 SAT 95.8 % (95.0-98.0); ATERIAL BLOOD GAS PEEP 5; CARBOXYHEMOGLOBIN 1.4 % (0.5-1.5); HHB 1.5 % (0.0-5.0); METHEMOGLOBIN 1.2 % (0.0-3.0)
[2016-09-07] MEDS: Insulin Regular 100 units/ml SC SCH ×4 (06:23→22:04)
[2016-09-07] MEDS: Multivitamin With Minerals Tab PO SCH (08:53)
--- NOTE | 2016-09-07 09:34 | CP.PCM.CON ---
History of Present Illness - History of Present Illness History of Present Illness: Still vent dependent Spiked temp > 100 degrees this AM On FiO2 of 100% (Pulse ox 94-95 %) Sinus rhythm at 104 BPM with rare isolated PVCs BP 150/70 mm Hg Faint gallop/ few basal rales+ Labs show : Leucocytosis has resolved Na+ 151 mEq/l K+ normal AST/ALT resolving Discussed with Cloth Stretcher Replace H2o with tap water thru NG tube wile gently diuresing him with Lasix Attempt to lower FiO2 and then wean pt off of vent Past Patient History - Past Medical History & Family History Past Medical History?: Yes - Past Social History Smoking Status: Former Smoker - CARDIAC Hx Cardiac Disorders: Yes Hx Hypertension: Yes - PULMONARY Hx Respiratory Disorders: No - NEUROLOGICAL Hx Neurological Disorder: Yes Hx Seizures: Yes - HEENT Hx HEENT Problems: No - RENAL Hx Chronic Kidney Disease: No - ENDOCRINE/METABOLIC Hx Endocrine Disorders: Yes Hx Diabetes Mellitus Type 2: Yes - HEMATOLOGICAL/ONCOLOGICAL Hx Blood Disorders: No Hx AIDS: No Hx Human Immunodeficiency Virus (HIV): No - INTEGUMENTARY Hx Dermatological Problems: No - MUSCULOSKELETAL/RHEUMATOLOGICAL Hx Musculoskeletal Disorders: Yes Hx Falls: Yes (fell last night on the back from the couch) - GASTROINTESTINAL Hx Gastrointestinal Disorders: Yes Hx Crohn's Disease: Yes Other/Comment: LEFT AABDOMINAL HERNIA - GENITOURINARY/GYNECOLOGICAL Hx Genitourinary Disorders: No - PSYCHIATRIC Hx Psychophysiologic Disorder: Yes Hx Substance Use: Yes (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.) - SURGICAL HISTORY Hx Surgeries: Yes Other/Comment: BOWEL RESECTION 1989, APPENDECTOMY 1983 - ANESTHESIA Hx Anesthesia: Yes Hx Anesthesia Reactions: No Hx Malignant Hyperthermia: No Has any member of the family had a problem w/ anesthesia?: No Meds Allergies/Adverse Reactions: Allergies Allergy/AdvReac Type Severity Reaction Status Date / Time ibuprofen [From Motrin] AdvReac NAUSEA Verified 08/30/16 02:45 - Medications Medications: Current Medications Chlordiazepoxide (Librium) 25 mg PO Q6 PRN PRN Reason: Agitation Stop: 09/09/16 20:29 Folic Acid (Folic Acid) 1 mg PO DAILY [facility] Last Admin: 09/07/16 08:52 Dose: 1 mg Piperacillin Sod/Tazobactam (Sod 2.25 gm/ Sodium Chloride) 100 mls @ 100 mls/ hr IVPB Q8 [facility] Last Admin: 09/07/16 08:53 Dose: 100 mls/hr Vancomycin HCl 750 mg/ Sodium (Chloride) 250 mls @ 166.667 mls/hr IVPB Q12 [facility] Last Admin: 09/07/16 08:55 Dose: 166.667 mls/hr Propofol (Diprivan) 100 mls @ 3.093 mls/hr IV .Q24H [facility]; 5 MCG/KG/MIN PRN Reason: Protocol Stop: 09/07/16 16:46 Last Titration: 09/07/16 09:27 Dose: 7 mcg/kg/min Dextrose (Dextrose 5% In Water 1000 Ml) 1,000 mls @ 75 mls/hr IV .[id number] [facility] Stop: 09/07/16 17:16 Insulin Human Regular (Humulin R) 0 units SC ACCU-CHECK [facility] PRN Reason: Protocol Last Admin: 09/07/16 06:23 Dose: Not Given Lactulose (Enulose) 20 gm PO BID [facility] Last Admin: 09/07/16 08:51 Dose: 20 gm Lorazepam (Ativan) 2 mg IVP Q4H PRN PRN Reason: agitation/anxiety on vent Last Admin: 09/06/16 14:23 Dose: 2 mg Metoprolol Tartrate (Lopressor) 12.5 mg PO Q12 [facility] Last Admin: 09/07/16 08:52 Dose: 12.5 mg Multivitamins/Minerals (Therapeutic-M Tab) 1 tab PO DAILY [facility] Last Admin: 09/07/16 08:53 Dose: 1 tab Pantoprazole Sodium (Protonix Inj) 40 mg IVP DAILY [facility] Last Admin: 09/07/16 08:52 Dose: 40 mg Rifaximin (Xifaxan) 550 mg PO BID [facility] Last Admin: 09/07/16 08:53 Dose: 550 mg Thiamine HCl (Vitamin B1 Tab) 100 mg PO DAILY [facility] Last Admin: 09/07/16 08:53 Dose: 100 mg Results - Vital Signs Recent Vital Signs: Last Vital Signs Temp 97.8 F 09/07/16 08:00 Pulse 108 H 09/07/16 08:52 Resp 36 H 09/07/16 08:00 BP 150/91 H 09/07/16 08:52 Pulse Ox 96 09/07/16 08:00 - Labs Result Diagrams: 09/07/16 04:30 09/07/16 04:30 Labs: Laboratory Results - last 24 hr 09/03/16 09/06/16 09/06/16 16:43 10:58 16:18 WBC RBC Hgb Hct MCV MCH MCHC RDW Plt Count pCO2 pO2 HCO3 ABG pH ABG Total CO2 ABG O2 Saturation ABG O2 Content ABG Base Excess ABG Hemoglobin ABG Carboxyhemoglobin POC ABG HHb (Measured) ABG Methemoglobin ABG O2 Capacity Jim Test A-a O2 Difference Hgb O2 Saturation Vent Mode Mechanical Rate FiO2 Tidal Volume PEEP Crit Value Called By Blood Gas Notified Time Sodium Potassium Chloride Carbon Dioxide Anion Gap BUN Creatinine Est GFR ( Amer) Est GFR (Non-Af Amer) POC Glucose (mg/dL) 152 H 159 H Random Glucose Calcium Total Bilirubin AST ALT Alkaline Phosphatase Total Protein Albumin Globulin Albumin/Globulin Ratio CARLYLE Screen Negative CARLYLE Titer TEST NOT PERFORMED CARLYLE Titer 2 TEST NOT PERFORMED CARLYLE Pattern TEST NOT PERFORMED CARLYLE Pattern 2 TEST NOT PERFORMED 09/06/16 09/07/16 09/07/16 21:42 04:30 05:50 WBC 5.2 RBC 4.05 L Hgb 12.4 Hct 38.8 MCV 96.0 H MCH 30.5 MCHC 31.8 L RDW 15.7 H Plt Count 59 L pCO2 43 pO2 90 HCO3 30.8 H ABG pH 7.48 H ABG Total CO2 33.3 H ABG O2 Saturation 98.5 H ABG O2 Content 17.5 ABG Base Excess 7.6 H ABG Hemoglobin 12.9 ABG Carboxyhemoglobin 1.4 POC ABG HHb (Measured) 1.5 ABG Methemoglobin 1.2 ABG O2 Capacity 17.8 Jim Test Yes A-a O2 Difference 569.0 Hgb O2 Saturation 95.8 Vent Mode A/c Mechanical Rate 14 FiO2 100.0 Tidal Volume 550 PEEP 5 Crit Value Called By 333 Blood Gas Notified Time 600 Sodium 151 H Potassium 3.9 Chloride 111 H Carbon Dioxide 27 Anion Gap 17 BUN 21 H Creatinine 1.4 Est GFR ( Amer) > 60 Est GFR (Non-Af Amer) 53 POC Glucose (mg/dL) 120 H Random Glucose 121 H Calcium 8.6 Total Bilirubin 2.3 H AST 162 H ALT 184 H D Alkaline Phosphatase 118 Total Protein 6.2 L Albumin 2.7 L Globulin 3.5 Albumin/Globulin Ratio 0.8 L CARLYLE Screen CARLYLE Titer CARLYLE Titer 2 CARLYLE Pattern CARLYLE Pattern 2 09/07/16 06:15 WBC RBC Hgb Hct MCV MCH MCHC RDW Plt Count pCO2 pO2 HCO3 ABG pH ABG Total CO2 ABG O2 Saturation ABG O2 Content ABG Base Excess ABG Hemoglobin ABG Carboxyhemoglobin POC ABG HHb (Measured) ABG Methemoglobin ABG O2 Capacity Jim Test A-a O2 Difference Hgb O2 Saturation Vent Mode Mechanical Rate FiO2 Tidal Volume PEEP Crit Value Called By Blood Gas Notified Time Sodium Potassium Chloride Carbon Dioxide Anion Gap BUN Creatinine Est GFR ( Amer) Est GFR (Non-Af Amer) POC Glucose (mg/dL) 109 Random Glucose Calcium Total Bilirubin AST ALT Alkaline Phosphatase Total Protein Albumin Globulin Albumin/Globulin Ratio CARLYLE Screen CARLYLE Titer CARLYLE Titer 2 CARLYLE Pattern CARLYLE Pattern 2
--- NOTE | 2016-09-07 09:41 | CP.CCUPN ---
CCU Subjective - Physician Review Subjective (Free Text): 09/07/16 10:43 Pt seen and examined at bedside in the ICU. Pt is currently intubated. He briefly opens eyes to loud verbal cues, but he is otherwise not responsive. However, he does move all 4 extremities on his own, and has + gag reflex. Other pertinent history unable to be taken. Pt is unable to confirm or deny series of ROS questions. CCU Objective - Vital Signs / Intake & Output Vital Signs (Last 4 hours): Vital Signs Temp Pulse Resp BP Pulse Ox 09/07/16 08:52 108 H 150/91 H 09/07/16 08:00 97.8 F 110 H 36 H 150/91 H 96 09/07/16 06:30 101.5 F H 09/07/16 06:00 101.5 F H 107 H 28 H 151/93 H 94 L Intake and Output (Last 8hrs): Intake & Output 09/06/16 09/07/16 09/07/16 22:59 06:59 14:59 Intake Total 682 164 8 Output Total 700 1100 175 Balance -18 -936 -167 Intake: IV 332 64 8 Intake, Piggyback 350 100 Output: Gastric Amount 100 Stomach 100 Urine 600 1100 175 Urethral ([place]) 600 1100 175 Other: # Bowel Movements 1 1 - Physical Exam Head: Positive for: Atraumatic, Normocephalic Pupils: Positive for: PERRL. Negative for: Sluggish, Non-Reactive Extroacular Muscles: Positive for: EOMI Conjunctiva: Positive for: Normal. Negative for: Injected, Icteric Neck: Positive for: Normal Range of Motion, Trachea Midline. Negative for: MIDLINE TENDERNESS, Paraspinal Tenderness, JVD, Lymphadenopathy, Bruit Respiratory/Chest: Positive for: Clear to Auscultation, Good Air Exchange, Decreased Breath Sounds. Negative for: Respiratory Distress, Wheezes, Rales, Rhonchi, Tachypneic Cardiovascular: Positive for: Normal S1, S2, Peripheal Pulses Present, Tachycardic. Negative for: Murmurs Abdomen: Positive for: Distention, Normal Bowel Sounds. Negative for: Tenderness, Peritoneal Signs Upper Extremity: Positive for: Normal Inspection, NORMAL PULSES. Negative for: Cyanosis, Edema Lower Extremity: Positive for: Edema (minimal), NORMAL PULSES. Negative for: CALF TENDERNESS Neurological: Positive for: Other (Patient sedated and orally intubated, being weaned off) Skin: Positive for: Warm, Dry, Normal Color. Negative for: Rashes - Medications Active Medications: Active Medications Generic Name Dose Route Start Last Admin Trade Name Freq PRN Reason Stop Dose Admin Chlordiazepoxide 25 mg 09/04/16 20:28 Librium PO 09/09/16 20:29 Q6 PRN Agitation Folic Acid 1 mg 09/04/16 09:00 09/07/16 08:52 Folic Acid PO 1 mg DAILY [facility] Administration Furosemide 40 mg 09/07/16 09:45 Lasix IVP DAILY [facility] Piperacillin Sod/Tazobactam 100 mls @ 100 mls/hr 09/04/16 01:00 09/07/16 08:53 Sod 2.25 gm/ Sodium Chloride IVPB 100 mls/hr Q8 [facility] Administration Vancomycin HCl 750 mg/ Sodium 250 mls @ 166.667 mls/hr 09/04/16 09:00 09/07/16 08:55 Chloride IVPB 166.667 mls/hr Q12 [facility] Administration Propofol 100 mls @ 3.093 mls/hr 09/06/16 16:45 09/07/16 09:27 Diprivan IV 09/07/16 16:46 7 mcg/kg/min .Q24H [facility] Titration Protocol 5 MCG/KG/MIN Dextrose 1,000 mls @ 75 mls/hr 09/06/16 17:15 Dextrose 5% In Water 1000 Ml IV 09/07/16 17:16 .[id number] [facility] Insulin Human Regular 0 units 09/03/16 23:00 09/07/16 06:23 Humulin R SC Not Given ACCU-CHECK [facility] Protocol Lactulose 20 gm 09/05/16 11:30 09/07/16 08:51 Enulose PO 20 gm BID [facility] Administration Lorazepam 2 mg 09/05/16 22:16 09/06/16 14:23 Ativan IVP 2 mg Q4H PRN Administration agitation/anxiety on vent Metoprolol Tartrate 12.5 mg 09/04/16 10:30 09/07/16 08:52 Lopressor PO 12.5 mg Q12 [facility] Administration Multivitamins/Minerals 1 tab 09/04/16 09:00 09/07/16 08:53 Therapeutic-M Tab PO 1 tab DAILY [facility] Administration Pantoprazole Sodium 40 mg 09/06/16 09:00 09/07/16 08:52 Protonix Inj IVP 40 mg DAILY [facility] Administration Rifaximin 550 mg 09/05/16 17:00 09/07/16 08:53 Xifaxan PO 550 mg BID [facility] Administration Spironolactone 25 mg 09/07/16 09:45 Aldactone PO DAILY [facility] Thiamine HCl 100 mg 09/04/16 09:00 09/07/16 08:53 Vitamin B1 Tab PO 100 mg DAILY [facility] Administration - Patient Studies Lab Studies: Microbiology Studies 09/04/16 05:15 Blood Culture - Preliminary Blood-Thru Central Line NO GROWTH AFTER 3 DAYS 09/04/16 05:15 Blood Culture - Preliminary Blood-Thru Central Line NO GROWTH AFTER 3 DAYS 09/03/16 09:50 Blood Culture - Preliminary Blood NO GROWTH AFTER 3 DAYS 09/03/16 09:45 Blood Culture - Preliminary Blood NO GROWTH AFTER 3 DAYS 09/01/16 06:05 Blood Culture - Final Blood-Venous NO GROWTH AFTER 5 DAYS Gram Stain - Final TEST NOT PERFORMED Lab Studies 09/07/16 09/07/16 09/07/16 Range/Units 06:15 05:50 04:30 WBC 5.2 (4.8-10.8) K/uL RBC 4.05 L (4.40-5.90) Mil/uL Hgb 12.4 (12.0-18.0) g/dL Hct 38.8 (35.0-51.0) % MCV 96.0 H (80.0-94.0) fl MCH 30.5 (27.0-31.0) pg MCHC 31.8 L (33.0-37.0) g/dL RDW 15.7 H (11.5-14.5) % Plt Count 59 L (130-400) K/uL pCO2 43 (35-45) mm/Hg pO2 90 (80-100) mm/Hg HCO3 30.8 H (21-28) mmol/L ABG pH 7.48 H (7.35-7.45) ABG Total CO2 33.3 H (22-28) mmol/L ABG O2 Saturation 98.5 H (95-98) % ABG O2 Content 17.5 (15-23) ML/dL ABG Base Excess 7.6 H (-2.0-3.0) mmol/L ABG Hemoglobin 12.9 (11.7-17.4) g/dL ABG Carboxyhemoglobin 1.4 (0.5-1.5) % POC ABG HHb (Measured) 1.5 (0.0-5.0) % ABG Methemoglobin 1.2 (0.0-3.0) % ABG O2 Capacity 17.8 (16-24) mL/dL Jim Test Yes A-a O2 Difference 569.0 mm/Hg Hgb O2 Saturation 95.8 (95.0-98.0) % Vent Mode A/c Mechanical Rate 14 FiO2 100.0 % Tidal Volume 550 PEEP 5 Crit Value Called By 333 Blood Gas Notified Time 600 Sodium 151 H (132-148) mmol/l Potassium 3.9 (3.6-5.0) MMOL/L Chloride 111 H (98-107) mmol/L Carbon Dioxide 27 (22-30) mmol/L Anion Gap 17 (10-20) BUN 21 H (9-20) mg/dl Creatinine 1.4 (0.8-1.5) mg/dL Est GFR ( Amer) > 60 Est GFR (Non-Af Amer) 53 POC Glucose (mg/dL) 109 (65-110) mg/dL Random Glucose 121 H (75-110) mg/dL Calcium 8.6 (8.4-10.2) mg/dL Total Bilirubin 2.3 H (0.2-1.3) mg/dl AST 162 H (17-59) U/L ALT 184 H D (21-72) U/L Alkaline Phosphatase 118 (38-126) U/L Total Protein 6.2 L (6.3-8.2) G/DL Albumin 2.7 L (3.5-5.0) g/dL Globulin 3.5 (2.2-3.9) gm/dL Albumin/Globulin Ratio 0.8 L (1.0-2.1) CARLYLE Screen (Negative) CARLYLE Titer CARLYLE Titer 2 CARLYLE Pattern CARLYLE Pattern 2 09/06/16 09/06/16 09/06/16 Range/Units 21:42 16:18 10:58 WBC (4.8-10.8) K/uL RBC (4.40-5.90) Mil/uL Hgb (12.0-18.0) g/dL Hct (35.0-51.0) % MCV (80.0-94.0) fl MCH (27.0-31.0) pg MCHC (33.0-37.0) g/dL RDW (11.5-14.5) % Plt Count (130-400) K/uL pCO2 (35-45) mm/Hg pO2 (80-100) mm/Hg HCO3 (21-28) mmol/L ABG pH (7.35-7.45) ABG Total CO2 (22-28) mmol/L ABG O2 Saturation (95-98) % ABG O2 Content (15-23) ML/dL ABG Base Excess (-2.0-3.0) mmol/L ABG Hemoglobin (11.7-17.4) g/dL ABG Carboxyhemoglobin (0.5-1.5) % POC ABG HHb (Measured) (0.0-5.0) % ABG Methemoglobin (0.0-3.0) % ABG O2 Capacity (16-24) mL/dL Jim Test A-a O2 Difference mm/Hg Hgb O2 Saturation (95.0-98.0) % Vent Mode Mechanical Rate FiO2 % Tidal Volume PEEP Crit Value Called By Blood Gas Notified Time Sodium (132-148) mmol/l Potassium (3.6-5.0) MMOL/L Chloride (98-107) mmol/L Carbon Dioxide (22-30) mmol/L Anion Gap (10-20) BUN (9-20) mg/dl Creatinine (0.8-1.5) mg/dL Est GFR ( Amer) Est GFR (Non-Af Amer) POC Glucose (mg/dL) 120 H 159 H 152 H (65-110) mg/dL Random Glucose (75-110) mg/dL Calcium (8.4-10.2) mg/dL Total Bilirubin (0.2-1.3) mg/dl AST (17-59) U/L ALT (21-72) U/L Alkaline Phosphatase (38-126) U/L Total Protein (6.3-8.2) G/DL Albumin (3.5-5.0) g/dL Globulin (2.2-3.9) gm/dL Albumin/Globulin Ratio (1.0-2.1) CARLYLE Screen (Negative) CARLYLE Titer CARLYLE Titer 2 CARLYLE Pattern CARLYLE Pattern 2 09/03/16 Range/Units 16:43 WBC (4.8-10.8) K/uL RBC (4.40-5.90) Mil/uL Hgb (12.0-18.0) g/dL Hct (35.0-51.0) % MCV (80.0-94.0) fl MCH (27.0-31.0) pg MCHC (33.0-37.0) g/dL RDW (11.5-14.5) % Plt Count (130-400) K/uL pCO2 (35-45) mm/Hg pO2 (80-100) mm/Hg HCO3 (21-28) mmol/L ABG pH (7.35-7.45) ABG Total CO2 (22-28) mmol/L ABG O2 Saturation (95-98) % ABG O2 Content (15-23) ML/dL ABG Base Excess (-2.0-3.0) mmol/L ABG Hemoglobin (11.7-17.4) g/dL ABG Carboxyhemoglobin (0.5-1.5) % POC ABG HHb (Measured) (0.0-5.0) % ABG Methemoglobin (0.0-3.0) % ABG O2 Capacity (16-24) mL/dL Jim Test A-a O2 Difference mm/Hg Hgb O2 Saturation (95.0-98.0) % Vent Mode Mechanical Rate FiO2 % Tidal Volume PEEP Crit Value Called By Blood Gas Notified Time Sodium (132-148) mmol/l Potassium (3.6-5.0) MMOL/L Chloride (98-107) mmol/L Carbon Dioxide (22-30) mmol/L Anion Gap (10-20) BUN (9-20) mg/dl Creatinine (0.8-1.5) mg/dL Est GFR ( Amer) Est GFR (Non-Af Amer) POC Glucose (mg/dL) (65-110) mg/dL Random Glucose (75-110) mg/dL Calcium (8.4-10.2) mg/dL Total Bilirubin (0.2-1.3) mg/dl AST (17-59) U/L ALT (21-72) U/L Alkaline Phosphatase (38-126) U/L Total Protein (6.3-8.2) G/DL Albumin (3.5-5.0) g/dL Globulin (2.2-3.9) gm/dL Albumin/Globulin Ratio (1.0-2.1) CARLYLE Screen Negative (Negative) CARLYLE Titer TEST NOT PERFORMED CARLYLE Titer 2 TEST NOT PERFORMED CARLYLE Pattern TEST NOT PERFORMED CARLYLE Pattern 2 TEST NOT PERFORMED Laboratory Results - last 24 hr 09/03/16 09/06/16 09/06/16 16:43 10:58 16:18 WBC RBC Hgb Hct MCV MCH MCHC RDW Plt Count pCO2 pO2 HCO3 ABG pH ABG Total CO2 ABG O2 Saturation ABG O2 Content ABG Base Excess ABG Hemoglobin ABG Carboxyhemoglobin POC ABG HHb (Measured) ABG Methemoglobin ABG O2 Capacity Jim Test A-a O2 Difference Hgb O2 Saturation Vent Mode Mechanical Rate FiO2 Tidal Volume PEEP Crit Value Called By Blood Gas Notified Time Sodium Potassium Chloride Carbon Dioxide Anion Gap BUN Creatinine Est GFR ( Amer) Est GFR (Non-Af Amer) POC Glucose (mg/dL) 152 H 159 H Random Glucose Calcium Total Bilirubin AST ALT Alkaline Phosphatase Total Protein Albumin Globulin Albumin/Globulin Ratio CARLYLE Screen Negative CARLYLE Titer TEST NOT PERFORMED CARLYLE Titer 2 TEST NOT PERFORMED CARLYLE Pattern TEST NOT PERFORMED CARLYLE Pattern 2 TEST NOT PERFORMED 09/06/16 09/07/16 09/07/16 21:42 04:30 05:50 WBC 5.2 RBC 4.05 L Hgb 12.4 Hct 38.8 MCV 96.0 H MCH 30.5 MCHC 31.8 L RDW 15.7 H Plt Count 59 L pCO2 43 pO2 90 HCO3 30.8 H ABG pH 7.48 H ABG Total CO2 33.3 H ABG O2 Saturation 98.5 H ABG O2 Content 17.5 ABG Base Excess 7.6 H ABG Hemoglobin 12.9 ABG Carboxyhemoglobin 1.4 POC ABG HHb (Measured) 1.5 ABG Methemoglobin 1.2 ABG O2 Capacity 17.8 Jim Test Yes A-a O2 Difference 569.0 Hgb O2 Saturation 95.8 Vent Mode A/c Mechanical Rate 14 FiO2 100.0 Tidal Volume 550 PEEP 5 Crit Value Called By 333 Blood Gas Notified Time 600 Sodium 151 H Potassium 3.9 Chloride 111 H Carbon Dioxide 27 Anion Gap 17 BUN 21 H Creatinine 1.4 Est GFR ( Amer) > 60 Est GFR (Non-Af Amer) 53 POC Glucose (mg/dL) 120 H Random Glucose 121 H Calcium 8.6 Total Bilirubin 2.3 H AST 162 H ALT 184 H D Alkaline Phosphatase 118 Total Protein 6.2 L Albumin 2.7 L Globulin 3.5 Albumin/Globulin Ratio 0.8 L CARLYLE Screen CARLYLE Titer CARLYLE Titer 2 CARLYLE Pattern CARLYLE Pattern 2 09/07/16 06:15 WBC RBC Hgb Hct MCV MCH MCHC RDW Plt Count pCO2 pO2 HCO3 ABG pH ABG Total CO2 ABG O2 Saturation ABG O2 Content ABG Base Excess ABG Hemoglobin ABG Carboxyhemoglobin POC ABG HHb (Measured) ABG Methemoglobin ABG O2 Capacity Jim Test A-a O2 Difference Hgb O2 Saturation Vent Mode Mechanical Rate FiO2 Tidal Volume PEEP Crit Value Called By Blood Gas Notified Time Sodium Potassium Chloride Carbon Dioxide Anion Gap BUN Creatinine Est GFR ( Amer) Est GFR (Non-Af Amer) POC Glucose (mg/dL) 109 Random Glucose Calcium Total Bilirubin AST ALT Alkaline Phosphatase Total Protein Albumin Globulin Albumin/Globulin Ratio CARLYLE Screen CARLYLE Titer CARLYLE Titer 2 CARLYLE Pattern CARLYLE Pattern 2 Fingerstick Blood Sugar Results: 120 Review of Systems - Review of Systems Review of Systems: see HPI Critical Care Progress Note - Ventilator Checklist Head of Bed 30 Degrees: Yes PUD Prophalyxis: Yes DVT Prophylaxis: Yes (scd) - Vent Settings MODE:: PRVC TIDAL VOLUME:: 550 RESP RATE:: 14 FIO2:: 100 PEEP:: 5 - Nutrition Nutrition: Nutrition Category Date Time Status Liquid Diet [DIET] Diets 09/04/16 Lunch Active Assessment/Plan - Assessment and Plan (Free Text) Plan: 51 yo M w PMHx of HTN, Crohn's, and etoh dependency was admitted for seizures, etoh withdrawal and is currently intubated, minimally responsive to loud voices 1) Acute respiratory failure with hypercapnia -Vancomycin 750mg IVPB Q12H -Zosyn 2.25gm IVPB Q8H -Lasix 40mg PO Daily; will consider 2nd dose if 1st dose is ineffective -Spironolactone 25mg PO Daily -Will attempt to wean off FIO2 following diuresis -f/u Respiratory function -f/u Diuresis 2) Altered mental status -Multifactorial -Febrile overnight, broke with Tylenol, Febrile this AM -Frequent neuro-check, Seizure precautions. -Head CT scan and MRI on admission negative -f/u Procalcitonin -f/u BCx -f/u UCx -f/u Sputum Cx -f/u CK -f/u Neuro Consult 3) Hypernatremia -Lasix 40mg PO Daily; will consider 2nd dose if 1st dose is ineffective -Spironolactone 25mg PO Daily -D5W @ 75cc/hr -Tap water 150mL PO Q4H -f/u CMP 4) Hepatic encephalopathy -Lactulose 20 gm PO BID -Rifaximin 550 mg PO BID 5) Aspiration pneumonia -Vancomycin 750 mg IVPB Q12 [facility] -Piperacillin Sod/Tazobactam 2.25 gm IVPB Q8 [facility] 6) Thrombocytopenia -No signs of active bleed at this time
[2016-09-07] MEDS ORDERED: Metoprolol 1 mg/ml Inj IVP ONE (10:15)
[2016-09-07] MEDS ORDERED: Metoprolol 1 mg/ml Inj IVP STA ×2 (10:20→13:00)
--- NOTE | 2016-09-07 10:26 | CP.PCM.PN ---
Subjective - Date & Time of Evaluation Date of Evaluation: 09/07/16 Time of Evaluation: 10:20 - Subjective Subjective: RFV: Cirrhosis S: Remains intubated on vent, on 100% FiO2. Sedated on propofol. Unable to give any history or follow commands. Objective - Vital Signs/Intake and Output Vital Signs (last 24 hours): Temp Pulse Resp BP Pulse Ox 97.8 F 108 H 36 H 154/99 H 96 09/07/16 08:00 09/07/16 08:52 09/07/16 08:00 09/07/16 10:09 09/07/16 08:00 Intake and Output: 09/07/16 09/07/16 06:59 18:59 Intake Total 446 8 Output Total 1100 175 Balance -654 -167 - Medications Medications: Current Medications Chlordiazepoxide (Librium) 25 mg PO Q6 PRN PRN Reason: Agitation Stop: 09/09/16 20:29 Folic Acid (Folic Acid) 1 mg PO DAILY [facility] Last Admin: 09/07/16 08:52 Dose: 1 mg Furosemide (Lasix) 40 mg IVP DAILY [facility] Last Admin: 09/07/16 10:09 Dose: 40 mg Piperacillin Sod/Tazobactam (Sod 2.25 gm/ Sodium Chloride) 100 mls @ 100 mls/ hr IVPB Q8 [facility] Last Admin: 09/07/16 08:53 Dose: 100 mls/hr Vancomycin HCl 750 mg/ Sodium (Chloride) 250 mls @ 166.667 mls/hr IVPB Q12 [facility] Last Admin: 09/07/16 08:55 Dose: 166.667 mls/hr Propofol (Diprivan) 100 mls @ 3.093 mls/hr IV .Q24H [facility]; 5 MCG/KG/MIN PRN Reason: Protocol Stop: 09/07/16 16:46 Last Titration: 09/07/16 10:04 Dose: 2.5 mcg/kg/min Dextrose (Dextrose 5% In Water 1000 Ml) 1,000 mls @ 75 mls/hr IV .[id number] [facility] Stop: 09/07/16 17:16 Insulin Human Regular (Humulin R) 0 units SC ACCU-CHECK [facility] PRN Reason: Protocol Last Admin: 09/07/16 06:23 Dose: Not Given Lactulose (Enulose) 20 gm PO BID [facility] Last Admin: 09/07/16 08:51 Dose: 20 gm Lorazepam (Ativan) 2 mg IVP Q4H PRN PRN Reason: agitation/anxiety on vent Last Admin: 09/06/16 14:23 Dose: 2 mg Metoprolol Tartrate (Lopressor) 12.5 mg PO Q12 [facility] Last Admin: 09/07/16 08:52 Dose: 12.5 mg Multivitamins/Minerals (Therapeutic-M Tab) 1 tab PO DAILY [facility] Last Admin: 09/07/16 08:53 Dose: 1 tab Pantoprazole Sodium (Protonix Inj) 40 mg IVP DAILY [facility] Last Admin: 09/07/16 08:52 Dose: 40 mg Rifaximin (Xifaxan) 550 mg PO BID [facility] Last Admin: 09/07/16 08:53 Dose: 550 mg Spironolactone (Aldactone) 25 mg PO DAILY [facility] Thiamine HCl (Vitamin B1 Tab) 100 mg PO DAILY [facility] Last Admin: 09/07/16 08:53 Dose: 100 mg - Labs Labs: 09/07/16 04:30 09/07/16 04:30 PT 13.9 SECONDS (9.6-11.2) H 09/06/16 04:25 INR 1.34 (0.92-1.08) H 09/06/16 04:25 APTT 24.3 SECONDS (23.3-32.5) 09/06/16 04:25 - Constitutional Appears: Chronically Ill, Other (intubated/sedated on ventilator) - Head Exam Head Exam: ATRAUMATIC, NORMOCEPHALIC - Eye Exam Eye Exam: Normal appearance. absent: Scleral icterus - ENT Exam ENT Exam: Mucous Membranes Moist - Respiratory Exam Additional comments: on vent - Cardiovascular Exam Cardiovascular Exam: +S1, +S2 - GI/Abdominal Exam GI & Abdominal Exam: Soft. absent: Distended, Firm, Guarding, Rigid, Tenderness - Neurological Exam Additional comments: sedated - Skin Skin Exam: Dry, Warm Assessment and Plan - Assessment and Plan (Free Text) Assessment: 51 year old male with h/o DM, HTN, EtOH abuse/cirrhosis who presented to the ED following a seizure, suspected 2/2 alcohol withdrawal now intubated for airway protection/respiratory failure. 1. Alcoholic cirrhosis 2. Ascites 3. Hepatic encephalopathy Plan: -no indication to start steroids for alc hep -autoimmune/hepatitis serologies negative -Continue Lactulose 20gm PO BID, titrate to 1-2BM/day through NGT -Continue Xifaxan 550mg PO BID -on lasix/aldactone also -ascites is small amount, not enough to tap -LFTs are downtrending -continue supportive care per ICU
--- NOTE | 2016-09-07 12:15 | CARD ---
APPROVED REPORT EKG Measurement Heart [id number] [id number] <Conclusion> Sinus tachycardia Left axis deviation Anterior infarct, age undetermined Abnormal ECG
[2016-09-07 12:56] LABS: RBC URINE 4 /hpf (0-3); URINE BILIRUBIN NEGATIVE (NEGATIVE); URINE BLOOD MODERATE (NEGATIVE); URINE COLOR YELLOW (YELLOW); URINE GLUCOSE (UA) NEG (Normal); URINE KETONE TRACE mg/dL (NEGATIVE); URINE LEUKOCYTE ESTERASE NEG Leu/uL (Negative); URINE PROTEIN NEGATIVE (NEGATIVE); URINE UROBILINOGEN 0.2-1.0 mg/dL (0.2-1.0); WBC URINE 1 /hpf (0-5)
[2016-09-07 14:49] LABS: TROPONIN I 0.051 ng/mL (0.00-0.120)
--- NOTE | 2016-09-07 15:56 | RAD ---
HISTORY: Pt. intubated COMPARISON: 09/06/2016 FINDINGS: The endotracheal tube terminates 3.6 cm proximal to the maxwell. The nasogastric tube terminates in the stomach. She LUNGS: There is bibasilar airspace disease. PLEURA: There are layering pleural effusions, improved since the prior examination. No pneumothorax apparent. CARDIOVASCULAR: The heart is normal size. OSSEOUS STRUCTURES: No significant abnormalities. VISUALIZED UPPER ABDOMEN: Normal. OTHER FINDINGS: None. IMPRESSION: Bibasilar airspace disease and layering pleural effusions, improved since the prior examination.
[2016-09-07 17:25] LABS: CALCIUM 8.6 mg/dL (8.4-10.2); MAGNESIUM 1.6 MG/DL (1.6-2.3); PHOSPHOROUS 3.3 mg/dl (2.5-4.5); POTASSIUM 3.7 MMOL/L (3.6-5.0)
--- NOTE | 2016-09-07 23:53 | PN ---
DATE: 09/07/2016 SUBJECTIVE: The patient is seen today 09/07/2016. He is not on the ventilator. PHYSICAL EXAMINATION: VITAL SIGNS: Blood pressure 182/83, temperature 100.9, respiratory rate 19, pulse is 94. HEENT: Pupils equal, obscures to light. Normal-appearing mucosa of the conjunctivae, oropharyngeal and nasal membrane mucosa. NECK: Supple, no JVD, no carotid bruit, no thyromegaly. CHEST AND LUNGS: Bilateral symmetrical expansion. Bilateral basilar rales. CARDIOVASCULAR: PMI not localized. S1, S2. No additional sounds. ABDOMEN: Normoactive bowel sounds, no tenderness, no organomegaly, no masses. EXTREMITIES: No cyanosis, no clubbing, no edema. CENTRAL NERVOUS SYSTEM: The patient is sedated on ventilator. At this point, the patient is not com municating as he is sedated. ASSESSMENT: 1. Alcohol withdrawal seizures. 1. Respiratory failure likely secondary to another seizure. 3. Dilated cardiomyopathy with ejection fraction of 20%. PLAN: Discussed the patient's condition with tare weigher and launderer hand. Recommendation is to give patient Lasix, spironolactone and when he start to take by mouth. Continue current IV an tibiotics. Canelo Ellison MD cc: [phone] TT: 09/07/2016 23:52:45 Confirmation # [id number] Dictation # [id number]
[2016-09-08] LABS: LKM-1 Ab (IgG) <=20.0 U (<=20.0)
[2016-09-08 05:36] LABS: ALB/GLOB RATIO 0.8 (1.0-2.1); BILIRUBIN,TOTAL 2.4 mg/dl (0.2-1.3); CALCIUM 8.6 mg/dL (8.4-10.2); POTASSIUM 3.4 MMOL/L (3.6-5.0); TOTAL PROTEIN 6.2 G/DL (6.3-8.2)
[2016-09-08 05:44] LABS: HEMATOCRIT 38.8 % (35.0-51.0); MEAN CELL VOLUME 96.2 fl (80.0-94.0); MEAN CORPUSCULAR HEMOGLOBIN 30.8 pg (27.0-31.0); RED CELL DISTRIBUTION WIDTH 15.4 % (11.5-14.5); WHITE BLOOD COUNT 5.7 K/uL (4.8-10.8)
[2016-09-08 05:51] LABS: ABG ALLEN TEST YES; ABG MECHANICAL RATE 14; ARTERIAL BLOOD GAS HCO3 34.6 mmol/L (21-28); ARTERIAL BLOOD GAS MODE A/C; ARTERIAL BLOOD GAS O2 CAPACITY 16.7 mL/dL (16-24); ARTERIAL BLOOD GAS O2 CONTENT 16.5 ML/dL (15-23); ARTERIAL BLOOD GAS PH 7.52 (7.35-7.45); ARTERIAL BLOOD GAS PO2 95 mm/Hg (80-100); ARTERIAL BLOOD HGB O2 SAT 96.4 % (95.0-98.0); ATERIAL BLOOD GAS PEEP 5; CARBOXYHEMOGLOBIN 1.3 % (0.5-1.5); HHB 1.1 % (0.0-5.0); METHEMOGLOBIN 1.1 % (0.0-3.0)
[2016-09-08] MEDS: Insulin Regular 100 units/ml SC SCH ×4 (06:25→22:36)
--- NOTE | 2016-09-08 06:53 | RAD ---
HISTORY: intubated COMPARISON: 09/07/2016 FINDINGS: LUNGS: No active pulmonary disease. PLEURA: No significant pleural effusion identified, no pneumothorax apparent. CARDIOVASCULAR: Mild cardiomegaly. Mild vascular congestion. OSSEOUS STRUCTURES: No significant abnormalities. VISUALIZED UPPER ABDOMEN: Normal. OTHER FINDINGS: Endotracheal and nasogastric tubes in satisfactory position IMPRESSION: Mild cardiomegaly and mild vascular congestion
[2016-09-08] MEDS: Multivitamin With Minerals Tab PO SCH (08:03)
--- NOTE | 2016-09-08 10:03 | CP.CCUPN ---
CCU Subjective - Physician Review Subjective (Free Text): 09/08/16 11:31 Pt seen and examined at bedside in the ICU. Pt is currently intubated w sedation due to agitation for risk of pulling lines. He briefly opens eyes to loud verbal cues, but he is otherwise not responsive. However, he does move all 4 extremities on his own, and has + gag reflex. Other pertinent history unable to be taken. Pt is unable to confirm or deny series of ROS questions. CCU Objective - Vital Signs / Intake & Output Vital Signs (Last 4 hours): Vital Signs Pulse BP 09/08/16 08:02 140/85 09/08/16 08:01 80 140/85 Intake and Output (Last 8hrs): Intake & Output 09/07/16 09/08/16 09/08/16 22:59 06:59 14:59 Intake Total 1200 1013 Output Total 1600 2850 Balance -400 -1837 Weight 218 lb Intake: IV 750 413 Intake, Piggyback 100 350 Tube Feeding 50 250 Free Water Flush 300 Output: Urine 1600 2850 Urethral ([place]) 1600 2850 Other: # Bowel Movements 1 1 - Physical Exam Physical Exam Limitations: Positive for: Other (currently sedated due to agitation) Head: Positive for: Atraumatic, Normocephalic Pupils: Positive for: PERRL. Negative for: Sluggish, Non-Reactive Extroacular Muscles: Positive for: EOMI Conjunctiva: Positive for: Normal. Negative for: Injected, Icteric Mouth: Positive for: Moist Mucous Membranes Neck: Positive for: Trachea Midline. Negative for: JVD, Lymphadenopathy, Bruit Respiratory/Chest: Positive for: Clear to Auscultation, Good Air Exchange, Decreased Breath Sounds. Negative for: Respiratory Distress, Rhonchi Cardiovascular: Positive for: Regular Rate and Rhythm, Normal S1, S2, Peripheal Pulses Present. Negative for: Murmurs Abdomen: Positive for: Normal Bowel Sounds. Negative for: Tenderness, Peritoneal Signs Upper Extremity: Positive for: Normal Inspection, NORMAL PULSES. Negative for: Cyanosis, Edema Lower Extremity: Positive for: Normal Inspection, NORMAL PULSES. Negative for: Edema, CALF TENDERNESS Neurological: Positive for: Other (Patient sedated and orally intubated, being weaned off) Skin: Positive for: Warm, Dry, Normal Color. Negative for: Rashes - Medications Active Medications: Active Medications Generic Name Dose Route Start Last Admin Trade Name Freq PRN Reason Stop Dose Admin Acetaminophen 650 mg 09/07/16 15:57 09/08/16 04:28 Tylenol 325mg Tab PO 650 mg Q4 PRN Administration Fever >100.4 F Carvedilol 12.5 mg 09/08/16 09:00 09/08/16 08:01 Coreg PO 12.5 mg Q12 C[facility] Administration Folic Acid 1 mg 09/04/16 09:00 09/08/16 08:02 Folic Acid PO 1 mg DAILY [facility] Administration Furosemide 40 mg 09/07/16 09:45 09/08/16 08:02 Lasix IVP 40 mg DAILY [facility] Administration Piperacillin Sod/Tazobactam 100 mls @ 100 mls/hr 09/04/16 01:00 09/08/16 08:03 Sod 2.25 gm/ Sodium Chloride IVPB 100 mls/hr Q8 [facility] Administration Vancomycin HCl 750 mg/ Sodium 250 mls @ 166.667 mls/hr 09/04/16 09:00 09/08/16 08:05 Chloride IVPB 166.667 mls/hr Q12 [facility] Administration Propofol 100 mls @ 2.966 mls/hr 09/08/16 08:30 Diprivan IV 09/09/16 08:31 .Q24H [facility] Protocol 5 MCG/KG/MIN Insulin Human Regular 0 units 09/03/16 23:00 09/08/16 06:25 Humulin R SC 2 units ACCU-CHECK [facility] Administration Protocol Lactulose 20 gm 09/05/16 11:30 09/08/16 08:02 Enulose PO 20 gm BID [facility] Administration Lorazepam 1 mg 09/08/16 02:41 09/08/16 08:00 Ativan IVP 1 mg Q4H PRN Administration agitation/anxiety on vent Multivitamins/Minerals 1 tab 09/04/16 09:00 09/08/16 08:03 Therapeutic-M Tab PO 1 tab DAILY [facility] Administration Pantoprazole Sodium 40 mg 09/06/16 09:00 09/08/16 08:02 Protonix Inj IVP 40 mg DAILY [facility] Administration Rifaximin 550 mg 09/05/16 17:00 09/08/16 08:03 Xifaxan PO 550 mg BID [facility] Administration Spironolactone 25 mg 09/07/16 09:45 09/08/16 08:01 Aldactone PO 25 mg DAILY [facility] Administration Thiamine HCl 100 mg 09/04/16 09:00 09/08/16 08:02 Vitamin B1 Tab PO 100 mg DAILY [facility] Administration - Patient Studies Lab Studies: Microbiology Studies 09/07/16 07:45 Blood Culture - Preliminary Blood-Venous NO GROWTH AFTER 24 HOURS 09/07/16 07:45 Blood Culture - Preliminary Blood-Venous NO GROWTH AFTER 24 HOURS 09/04/16 05:15 Blood Culture - Preliminary Blood-Thru Central Line NO GROWTH AFTER 4 DAYS 09/04/16 05:15 Blood Culture - Preliminary Blood-Thru Central Line NO GROWTH AFTER 4 DAYS 09/07/16 12:46 Gram Stain - Final Trachasp 09/03/16 09:50 Blood Culture - Preliminary Blood NO GROWTH AFTER 4 DAYS 09/03/16 09:45 Blood Culture - Preliminary Blood NO GROWTH AFTER 4 DAYS Lab Studies 09/08/16 09/08/16 09/08/16 Range/Units 06:23 05:30 04:40 WBC 5.7 (4.8-10.8) K/uL RBC 4.04 L (4.40-5.90) Mil/uL Hgb 12.4 (12.0-18.0) g/dL Hct 38.8 (35.0-51.0) % MCV 96.2 H (80.0-94.0) fl MCH 30.8 (27.0-31.0) pg MCHC 32.0 L (33.0-37.0) g/dL RDW 15.4 H (11.5-14.5) % Plt Count 56 L (130-400) K/uL pCO2 45 (35-45) mm/Hg pO2 95 (80-100) mm/Hg HCO3 34.6 H (21-28) mmol/L ABG pH 7.52 H (7.35-7.45) ABG Total CO2 38.1 H (22-28) mmol/L ABG O2 Saturation 98.9 H (95-98) % ABG O2 Content 16.5 (15-23) ML/dL ABG Base Excess 12.4 H (-2.0-3.0) mmol/L ABG Hemoglobin 12.1 (11.7-17.4) g/dL ABG Carboxyhemoglobin 1.3 (0.5-1.5) % POC ABG HHb (Measured) 1.1 (0.0-5.0) % ABG Methemoglobin 1.1 (0.0-3.0) % ABG O2 Capacity 16.7 (16-24) mL/dL Jim Test Yes A-a O2 Difference 419.0 mm/Hg Hgb O2 Saturation 96.4 (95.0-98.0) % Vent Mode A/c Mechanical Rate 14 FiO2 80.0 % Tidal Volume 550 PEEP 5 Crit Value Called By 333 Blood Gas Notified Time 550 Sodium 147 (132-148) mmol/l Potassium 3.4 L (3.6-5.0) MMOL/L Chloride 101 (98-107) mmol/L Carbon Dioxide 31 H (22-30) mmol/L Anion Gap 18 (10-20) BUN 23 H (9-20) mg/dl Creatinine 1.6 H (0.8-1.5) mg/dL Est GFR ( Amer) 55 Est GFR (Non-Af Amer) 45 POC Glucose (mg/dL) 168 H (65-110) mg/dL Random Glucose 181 H (75-110) mg/dL Hemoglobin A1c (4.2-6.5) % Calcium 8.6 (8.4-10.2) mg/dL Phosphorus (2.5-4.5) mg/dl Magnesium (1.6-2.3) MG/DL Total Bilirubin 2.4 H (0.2-1.3) mg/dl AST 128 H D (17-59) U/L ALT 139 H D (21-72) U/L Alkaline Phosphatase 130 H (38-126) U/L Total Creatine Kinase 132 (55-170) U/L Troponin I (0.00-0.120) ng/mL Total Protein 6.2 L (6.3-8.2) G/DL Albumin 2.7 L (3.5-5.0) g/dL Globulin 3.5 (2.2-3.9) gm/dL Albumin/Globulin Ratio 0.8 L (1.0-2.1) Procalcitonin (0.19-0.49) NG/ML Urine Color (YELLOW) Urine Clarity (Clear) Urine pH (5.0-8.0) Ur Specific [place] (1.003-1.030) Urine Protein (NEGATIVE) mg/dL Urine Glucose (UA) (Normal) mg/dL Urine Ketones (NEGATIVE) mg/dL Urine Blood (NEGATIVE) Urine Nitrate (NEGATIVE) Urine Bilirubin (NEGATIVE) Urine Urobilinogen (0.2-1.0) mg/dL Ur Leukocyte Esterase (Negative) Aditya/uL Urine RBC (Auto) (0-3) /hpf Urine Microscopic WBC (0-5) /hpf Vancomycin Trough 16.9 H (5.0-10.0) ug/mL Liver/Kid Microsomes Ab (<=20.0) U 09/07/16 09/07/16 09/07/16 Range/Units 22:03 16:55 16:44 WBC (4.8-10.8) K/uL RBC (4.40-5.90) Mil/uL Hgb (12.0-18.0) g/dL Hct (35.0-51.0) % MCV (80.0-94.0) fl MCH (27.0-31.0) pg MCHC (33.0-37.0) g/dL RDW (11.5-14.5) % Plt Count (130-400) K/uL pCO2 (35-45) mm/Hg pO2 (80-100) mm/Hg HCO3 (21-28) mmol/L ABG pH (7.35-7.45) ABG Total CO2 (22-28) mmol/L ABG O2 Saturation (95-98) % ABG O2 Content (15-23) ML/dL ABG Base Excess (-2.0-3.0) mmol/L ABG Hemoglobin (11.7-17.4) g/dL ABG Carboxyhemoglobin (0.5-1.5) % POC ABG HHb (Measured) (0.0-5.0) % ABG Methemoglobin (0.0-3.0) % ABG O2 Capacity (16-24) mL/dL Jim Test A-a O2 Difference mm/Hg Hgb O2 Saturation (95.0-98.0) % Vent Mode Mechanical Rate FiO2 % Tidal Volume PEEP Crit Value Called By Blood Gas Notified Time Sodium 149 H (132-148) mmol/l Potassium 3.7 (3.6-5.0) MMOL/L Chloride 105 (98-107) mmol/L Carbon Dioxide 30 (22-30) mmol/L Anion Gap 18 (10-20) BUN 23 H (9-20) mg/dl Creatinine 1.6 H (0.8-1.5) mg/dL Est GFR ( Amer) 55 Est GFR (Non-Af Amer) 45 POC Glucose (mg/dL) 177 H 198 H (65-110) mg/dL Random Glucose 186 H (75-110) mg/dL Hemoglobin A1c (4.2-6.5) % Calcium 8.6 (8.4-10.2) mg/dL Phosphorus 3.3 (2.5-4.5) mg/dl Magnesium 1.6 (1.6-2.3) MG/DL Total Bilirubin (0.2-1.3) mg/dl AST (17-59) U/L ALT (21-72) U/L Alkaline Phosphatase (38-126) U/L Total Creatine Kinase (55-170) U/L Troponin I (0.00-0.120) ng/mL Total Protein (6.3-8.2) G/DL Albumin (3.5-5.0) g/dL Globulin (2.2-3.9) gm/dL Albumin/Globulin Ratio (1.0-2.1) Procalcitonin (0.19-0.49) NG/ML Urine Color (YELLOW) Urine Clarity (Clear) Urine pH (5.0-8.0) Ur Specific [place] (1.003-1.030) Urine Protein (NEGATIVE) mg/dL Urine Glucose (UA) (Normal) mg/dL Urine Ketones (NEGATIVE) mg/dL Urine Blood (NEGATIVE) Urine Nitrate (NEGATIVE) Urine Bilirubin (NEGATIVE) Urine Urobilinogen (0.2-1.0) mg/dL Ur Leukocyte Esterase (Negative) Aditya/uL Urine RBC (Auto) (0-3) /hpf Urine Microscopic WBC (0-5) /hpf Vancomycin Trough (5.0-10.0) ug/mL Liver/Kid Microsomes Ab (<=20.0) U 09/07/16 09/07/16 09/07/16 Range/Units 12:46 12:10 11:38 WBC (4.8-10.8) K/uL RBC (4.40-5.90) Mil/uL Hgb (12.0-18.0) g/dL Hct (35.0-51.0) % MCV (80.0-94.0) fl MCH (27.0-31.0) pg MCHC (33.0-37.0) g/dL RDW (11.5-14.5) % Plt Count (130-400) K/uL pCO2 (35-45) mm/Hg pO2 (80-100) mm/Hg HCO3 (21-28) mmol/L ABG pH (7.35-7.45) ABG Total CO2 (22-28) mmol/L ABG O2 Saturation (95-98) % ABG O2 Content (15-23) ML/dL ABG Base Excess (-2.0-3.0) mmol/L ABG Hemoglobin (11.7-17.4) g/dL ABG Carboxyhemoglobin (0.5-1.5) % POC ABG HHb (Measured) (0.0-5.0) % ABG Methemoglobin (0.0-3.0) % ABG O2 Capacity (16-24) mL/dL Jim Test A-a O2 Difference mm/Hg Hgb O2 Saturation (95.0-98.0) % Vent Mode Mechanical Rate FiO2 % Tidal Volume PEEP Crit Value Called By Blood Gas Notified Time Sodium (132-148) mmol/l Potassium (3.6-5.0) MMOL/L Chloride (98-107) mmol/L Carbon Dioxide (22-30) mmol/L Anion Gap (10-20) BUN (9-20) mg/dl Creatinine (0.8-1.5) mg/dL Est GFR ( Amer) Est GFR (Non-Af Amer) POC Glucose (mg/dL) (65-110) mg/dL Random Glucose (75-110) mg/dL Hemoglobin A1c 6.8 H (4.2-6.5) % Calcium (8.4-10.2) mg/dL Phosphorus (2.5-4.5) mg/dl Magnesium (1.6-2.3) MG/DL Total Bilirubin (0.2-1.3) mg/dl AST (17-59) U/L ALT (21-72) U/L Alkaline Phosphatase (38-126) U/L Total Creatine Kinase 148 (55-170) U/L Troponin I 0.0510 (0.00-0.120) ng/mL Total Protein (6.3-8.2) G/DL Albumin (3.5-5.0) g/dL Globulin (2.2-3.9) gm/dL Albumin/Globulin Ratio (1.0-2.1) Procalcitonin 0.67 H (0.19-0.49) NG/ML Urine Color Yellow (YELLOW) Urine Clarity Clear (Clear) Urine pH 6.0 (5.0-8.0) Ur Specific [place] 1.010 (1.003-1.030) Urine Protein Negative (NEGATIVE) mg/dL Urine Glucose (UA) Neg (Normal) mg/dL Urine Ketones Trace (NEGATIVE) mg/dL Urine Blood Moderate (NEGATIVE) Urine Nitrate Negative (NEGATIVE) Urine Bilirubin Negative (NEGATIVE) Urine Urobilinogen 0.2-1.0 (0.2-1.0) mg/dL Ur Leukocyte Esterase Neg (Negative) Aditya/uL Urine RBC (Auto) 4 H (0-3) /hpf Urine Microscopic WBC 1 (0-5) /hpf Vancomycin Trough (5.0-10.0) ug/mL Liver/Kid Microsomes Ab (<=20.0) U 09/07/16 09/03/16 Range/Units 10:40 16:43 WBC (4.8-10.8) K/uL RBC (4.40-5.90) Mil/uL Hgb (12.0-18.0) g/dL Hct (35.0-51.0) % MCV (80.0-94.0) fl MCH (27.0-31.0) pg MCHC (33.0-37.0) g/dL RDW (11.5-14.5) % Plt Count (130-400) K/uL pCO2 (35-45) mm/Hg pO2 (80-100) mm/Hg HCO3 (21-28) mmol/L ABG pH (7.35-7.45) ABG Total CO2 (22-28) mmol/L ABG O2 Saturation (95-98) % ABG O2 Content (15-23) ML/dL ABG Base Excess (-2.0-3.0) mmol/L ABG Hemoglobin (11.7-17.4) g/dL ABG Carboxyhemoglobin (0.5-1.5) % POC ABG HHb (Measured) (0.0-5.0) % ABG Methemoglobin (0.0-3.0) % ABG O2 Capacity (16-24) mL/dL Jim Test A-a O2 Difference mm/Hg Hgb O2 Saturation (95.0-98.0) % Vent Mode Mechanical Rate FiO2 % Tidal Volume PEEP Crit Value Called By Blood Gas Notified Time Sodium (132-148) mmol/l Potassium (3.6-5.0) MMOL/L Chloride (98-107) mmol/L Carbon Dioxide (22-30) mmol/L Anion Gap (10-20) BUN (9-20) mg/dl Creatinine (0.8-1.5) mg/dL Est GFR ( Amer) Est GFR (Non-Af Amer) POC Glucose (mg/dL) 126 H (65-110) mg/dL Random Glucose (75-110) mg/dL Hemoglobin A1c (4.2-6.5) % Calcium (8.4-10.2) mg/dL Phosphorus (2.5-4.5) mg/dl Magnesium (1.6-2.3) MG/DL Total Bilirubin (0.2-1.3) mg/dl AST (17-59) U/L ALT (21-72) U/L Alkaline Phosphatase (38-126) U/L Total Creatine Kinase (55-170) U/L Troponin I (0.00-0.120) ng/mL Total Protein (6.3-8.2) G/DL Albumin (3.5-5.0) g/dL Globulin (2.2-3.9) gm/dL Albumin/Globulin Ratio (1.0-2.1) Procalcitonin (0.19-0.49) NG/ML Urine Color (YELLOW) Urine Clarity (Clear) Urine pH (5.0-8.0) Ur Specific [place] (1.003-1.030) Urine Protein (NEGATIVE) mg/dL Urine Glucose (UA) (Normal) mg/dL Urine Ketones (NEGATIVE) mg/dL Urine Blood (NEGATIVE) Urine Nitrate (NEGATIVE) Urine Bilirubin (NEGATIVE) Urine Urobilinogen (0.2-1.0) mg/dL Ur Leukocyte Esterase (Negative) Aditya/uL Urine RBC (Auto) (0-3) /hpf Urine Microscopic WBC (0-5) /hpf Vancomycin Trough (5.0-10.0) ug/mL Liver/Kid Microsomes Ab <=20.0 (<=20.0) U Laboratory Results - last 24 hr 09/03/16 09/07/16 09/07/16 16:43 10:40 11:38 WBC RBC Hgb Hct MCV MCH MCHC RDW Plt Count pCO2 pO2 HCO3 ABG pH ABG Total CO2 ABG O2 Saturation ABG O2 Content ABG Base Excess ABG Hemoglobin ABG Carboxyhemoglobin POC ABG HHb (Measured) ABG Methemoglobin ABG O2 Capacity Jim Test A-a O2 Difference Hgb O2 Saturation Vent Mode Mechanical Rate FiO2 Tidal Volume PEEP Crit Value Called By Blood Gas Notified Time Sodium Potassium Chloride Carbon Dioxide Anion Gap BUN Creatinine Est GFR ( Amer) Est GFR (Non-Af Amer) POC Glucose (mg/dL) 126 H Random Glucose Hemoglobin A1c Calcium Phosphorus Magnesium Total Bilirubin AST ALT Alkaline Phosphatase Total Creatine Kinase Troponin I Total Protein Albumin Globulin Albumin/Globulin Ratio Procalcitonin 0.67 H Urine Color Urine Clarity Urine pH Ur Specific [place] Urine Protein Urine Glucose (UA) Urine Ketones Urine Blood Urine Nitrate Urine Bilirubin Urine Urobilinogen Ur Leukocyte Esterase Urine RBC (Auto) Urine Microscopic WBC Vancomycin Trough Liver/Kid Microsomes Ab <=20.0 09/07/16 09/07/16 09/07/16 12:10 12:46 16:44 WBC RBC Hgb Hct MCV MCH MCHC RDW Plt Count pCO2 pO2 HCO3 ABG pH ABG Total CO2 ABG O2 Saturation ABG O2 Content ABG Base Excess ABG Hemoglobin ABG Carboxyhemoglobin POC ABG HHb (Measured) ABG Methemoglobin ABG O2 Capacity Jim Test A-a O2 Difference Hgb O2 Saturation Vent Mode Mechanical Rate FiO2 Tidal Volume PEEP Crit Value Called By Blood Gas Notified Time Sodium Potassium Chloride Carbon Dioxide Anion Gap BUN Creatinine Est GFR ( Amer) Est GFR (Non-Af Amer) POC Glucose (mg/dL) 198 H Random Glucose Hemoglobin A1c 6.8 H Calcium Phosphorus Magnesium Total Bilirubin AST ALT Alkaline Phosphatase Total Creatine Kinase 148 Troponin I 0.0510 Total Protein Albumin Globulin Albumin/Globulin Ratio Procalcitonin Urine Color Yellow Urine Clarity Clear Urine pH 6.0 Ur Specific [place] 1.010 Urine Protein Negative Urine Glucose (UA) Neg Urine Ketones Trace Urine Blood Moderate Urine Nitrate Negative Urine Bilirubin Negative Urine Urobilinogen 0.2-1.0 Ur Leukocyte Esterase Neg Urine RBC (Auto) 4 H Urine Microscopic WBC 1 Vancomycin Trough Liver/Kid Microsomes Ab 09/07/16 09/07/16 09/08/16 16:55 22:03 04:40 WBC 5.7 RBC 4.04 L Hgb 12.4 Hct 38.8 MCV 96.2 H MCH 30.8 MCHC 32.0 L RDW 15.4 H Plt Count 56 L pCO2 pO2 HCO3 ABG pH ABG Total CO2 ABG O2 Saturation ABG O2 Content ABG Base Excess ABG Hemoglobin ABG Carboxyhemoglobin POC ABG HHb (Measured) ABG Methemoglobin ABG O2 Capacity Jim Test A-a O2 Difference Hgb O2 Saturation Vent Mode Mechanical Rate FiO2 Tidal Volume PEEP Crit Value Called By Blood Gas Notified Time Sodium 149 H 147 Potassium 3.7 3.4 L Chloride 105 101 Carbon Dioxide 30 31 H Anion Gap 18 18 BUN 23 H 23 H Creatinine 1.6 H 1.6 H Est GFR ( Amer) 55 55 Est GFR (Non-Af Amer) 45 45 POC Glucose (mg/dL) 177 H Random Glucose 186 H 181 H Hemoglobin A1c Calcium 8.6 8.6 Phosphorus 3.3 Magnesium 1.6 Total Bilirubin 2.4 H AST 128 H D ALT 139 H D Alkaline Phosphatase 130 H Total Creatine Kinase 132 Troponin I Total Protein 6.2 L Albumin 2.7 L Globulin 3.5 Albumin/Globulin Ratio 0.8 L Procalcitonin Urine Color Urine Clarity Urine pH Ur Specific [place] Urine Protein Urine Glucose (UA) Urine Ketones Urine Blood Urine Nitrate Urine Bilirubin Urine Urobilinogen Ur Leukocyte Esterase Urine RBC (Auto) Urine Microscopic WBC Vancomycin Trough 16.9 H Liver/Kid Microsomes Ab 09/08/16 09/08/16 05:30 06:23 WBC RBC Hgb Hct MCV MCH MCHC RDW Plt Count pCO2 45 pO2 95 HCO3 34.6 H ABG pH 7.52 H ABG Total CO2 38.1 H ABG O2 Saturation 98.9 H ABG O2 Content 16.5 ABG Base Excess 12.4 H ABG Hemoglobin 12.1 ABG Carboxyhemoglobin 1.3 POC ABG HHb (Measured) 1.1 ABG Methemoglobin 1.1 ABG O2 Capacity 16.7 Jim Test Yes A-a O2 Difference 419.0 Hgb O2 Saturation 96.4 Vent Mode A/c Mechanical Rate 14 FiO2 80.0 Tidal Volume 550 PEEP 5 Crit Value Called By 333 Blood Gas Notified Time 550 Sodium Potassium Chloride Carbon Dioxide Anion Gap BUN Creatinine Est GFR ( Amer) Est GFR (Non-Af Amer) POC Glucose (mg/dL) 168 H Random Glucose Hemoglobin A1c Calcium Phosphorus Magnesium Total Bilirubin AST ALT Alkaline Phosphatase Total Creatine Kinase Troponin I Total Protein Albumin Globulin Albumin/Globulin Ratio Procalcitonin Urine Color Urine Clarity Urine pH Ur Specific [place] Urine Protein Urine Glucose (UA) Urine Ketones Urine Blood Urine Nitrate Urine Bilirubin Urine Urobilinogen Ur Leukocyte Esterase Urine RBC (Auto) Urine Microscopic WBC Vancomycin Trough Liver/Kid Microsomes Ab Fingerstick Blood Sugar Results: 168 Review of Systems - Review of Systems Review of Systems: see HPI Critical Care Progress Note - Ventilator Checklist Head of Bed 30 Degrees: Yes Daily Sedation Vacation: Yes PUD Prophalyxis: Yes (protonix) DVT Prophylaxis: Yes (scd) - Vent Settings MODE:: PRVC TIDAL VOLUME:: 550 RESP RATE:: 14 FIO2:: 50 PEEP:: 5 - Extremities/Vascular Does the Patient have a [place] Catheter?: Yes Does the Patient need a [place] Catheter?: Yes - Nutrition Nutrition: Nutrition Category Date Time Status Liquid Diet [DIET] Diets 09/04/16 Lunch Active Assessment/Plan - Assessment and Plan (Free Text) Plan: 51 yo M w PMHx of HTN, Crohn's, and etoh dependency was admitted for seizures and etoh withdrawal, is currently intubated w sedation and minimally responsive to loud voices 1) Acute respiratory failure with hypercapnia -Improving as the FIO2 decrease to 50% has been tolerated thus far, will attempt to wean off tomorrow --Propofol IV 5mcg -Vancomycin 750mg IVPB Q12H -Zosyn 2.25gm IVPB Q8H -Lasix 40mg PO Daily -Spironolactone 25mg PO Daily ---will increase to 50mg Daily -f/u Respiratory function -f/u Diuresis 2) Altered mental status -Multifactorial -Intermittent fever spikes -Frequent neuro-check, Seizure precautions. -Head CT scan and MRI on admission negative -Procalcitonin 0.67 -BCx pending neg -UCx neg -Sputum Cx pending neg -CK 132 -Troponin 0.0510 -f/u Neuro Consult 3) Hepatic encephalopathy -Lactulose 20 gm PO BID -Rifaximin 550 mg PO BID 4) Aspiration pneumonia -Vancomycin 750 mg IVPB Q12 [facility]NEY -Zosyn 2.25gm IVPB Q8H 5) Thrombocytopenia -No signs of active bleed at this time 6) Hypernatremia -Has resolved
--- NOTE | 2016-09-08 12:45 | CP.PCM.PN ---
Subjective - Date & Time of Evaluation Date of Evaluation: 09/08/16 Time of Evaluation: 09:00 - Subjective Subjective: Patient seen in MICU. Intubated on 50% FiO2. Sedated. With intermittent fever spikes and adequate urine output. Minimal ascites. Blood cultures NAD Objective - Vital Signs/Intake and Output Vital Signs (last 24 hours): Temp Pulse Resp BP Pulse Ox 100.4 F H 80 18 140/85 100 09/08/16 05:28 09/08/16 08:01 09/08/16 06:00 09/08/16 08:02 09/08/16 06:00 Intake and Output: 09/08/16 09/08/16 06:59 18:59 Intake Total 1513 Output Total 3350 Balance -1837 - Medications Medications: Current Medications Acetaminophen (Tylenol 325mg Tab) 650 mg PO Q4 PRN PRN Reason: Fever >100.4 F Last Admin: 09/08/16 04:28 Dose: 650 mg Carvedilol (Coreg) 12.5 mg PO Q12 [facility] Last Admin: 09/08/16 08:01 Dose: 12.5 mg Folic Acid (Folic Acid) 1 mg PO DAILY [facility] Last Admin: 09/08/16 08:02 Dose: 1 mg Furosemide (Lasix) 40 mg IVP DAILY [facility] Last Admin: 09/08/16 08:02 Dose: 40 mg Piperacillin Sod/Tazobactam (Sod 2.25 gm/ Sodium Chloride) 100 mls @ 100 mls/ hr IVPB Q8 [facility] Last Admin: 09/08/16 08:03 Dose: 100 mls/hr Vancomycin HCl 750 mg/ Sodium (Chloride) 250 mls @ 166.667 mls/hr IVPB Q12 [facility] Last Admin: 09/08/16 08:05 Dose: 166.667 mls/hr Propofol (Diprivan) 100 mls @ 2.966 mls/hr IV .Q24H [facility]; 5 MCG/KG/MIN PRN Reason: Protocol Stop: 09/09/16 08:31 Potassium Chloride (Potassium Cl 10meq/50ml Sterile Water) 50 mls @ 50 mls/hr IVPB Q1 [facility] Stop: 09/08/16 16:59 Levetiracetam 500 mg/ Sodium (Chloride) 105 mls @ 210 mls/hr IVPB Q12 [facility] Insulin Human Regular (Humulin R) 0 units SC ACCU-CHECK [facility] PRN Reason: Protocol Last Admin: 09/08/16 06:25 Dose: 2 units Lactulose (Enulose) 20 gm PO BID [facility] Last Admin: 09/08/16 08:02 Dose: 20 gm Lorazepam (Ativan) 1 mg IVP Q4H PRN PRN Reason: agitation/anxiety on vent Last Admin: 09/08/16 08:00 Dose: 1 mg Multivitamins/Minerals (Therapeutic-M Tab) 1 tab PO DAILY [facility] Last Admin: 09/08/16 08:03 Dose: 1 tab Pantoprazole Sodium (Protonix Inj) 40 mg IVP DAILY [facility] Last Admin: 09/08/16 08:02 Dose: 40 mg Rifaximin (Xifaxan) 550 mg PO BID [facility] Last Admin: 09/08/16 08:03 Dose: 550 mg Spironolactone (Aldactone) 50 mg PO DAILY [facility] Thiamine HCl (Vitamin B1 Tab) 100 mg PO DAILY [facility] Last Admin: 09/08/16 08:02 Dose: 100 mg - Labs Labs: 09/08/16 04:40 09/08/16 04:40 PT 13.9 SECONDS (9.6-11.2) H 09/06/16 04:25 INR 1.34 (0.92-1.08) H 09/06/16 04:25 APTT 24.3 SECONDS (23.3-32.5) 09/06/16 04:25 - Head Exam Additional comments: Sedated Afebrile Intubated Coarse breath sounds RRR. No m/r/g Soft. Obese. Non tender. No guarding LE- 1+ edema Assessment and Plan - Assessment and Plan (Free Text) Assessment: 51 year old male with h/o DM, HTN, EtOH abuse/cirrhosis who presented to the ED following a seizure, suspected 2/2 alcohol withdrawal now intubated for airway protection/respiratory failure. Plan: -no indication to start steroids for alc hep -autoimmune/hepatitis serologies negative -Continue Lactulose 20gm PO BID, titrate to 1-2BM/day through [facility] -Continue Xifaxan 550mg PO BID -on lasix/aldactone also -ascites is small amount, not enough to tap -LFTs are downtrending - Will require CT abdomen triple phase to rule out HCC when awake - Will require EGD for variceal screening when awake- can be done outpatient - H/Hct stable -continue supportive care per ICU
[2016-09-08 12:57] LABS: ABG ALLEN TEST YES; ABG MECHANICAL RATE 14; ARTERIAL BLOOD GAS HCO3 33.3 mmol/L (21-28); ARTERIAL BLOOD GAS MODE A/C; ARTERIAL BLOOD GAS PH 7.49 (7.35-7.45); ARTERIAL BLOOD GAS PO2 148 mm/Hg (80-100); ATERIAL BLOOD GAS PEEP 5
[2016-09-08] MEDS: Potassium CL 10 MEQ/50 ML 50 ML IVPB SCH ×4 (13:21→18:29)
--- NOTE | 2016-09-08 13:57 | CP.CCUPN ---
CCU Subjective - Physician Review Subjective (Free Text): REGISTERED SALES ASSISTANT PROGRESS NOTE Code Blue Note: Code called for sudden VT progressing rapidly to VF; CPR and ACLS immediately started, high quality chest compressions ensured. Patient prepped for immediate defibrillation with 200J biphasic , delivered without complications and reverted rthym to sinus with palpable pulses. Subsequently gave 300mg Amiodarone bolus. BP post Code 118/66, HR 96 in sinus. 12 lead EKG shows sinus rhythm with same ST changes as before on 09/05/16 study, but deeper T inversions noted in I, L and especially V4-6. arrived at the bedside and discussed events with
[2016-09-08] MEDS: Amiodarone 900 MG in Dextrose 5% In Water 500 ML IVPB SCH (14:00)
--- NOTE | 2016-09-08 14:00 | CP.CCUPN ---
CCU Subjective - Physician Review Subjective (Free Text): SOCIAL DIRECTOR PROCEDURE NOTE CENTRAL LINE INSERTION Indications: Poor peripheral IV access Under emergent conditions in ICU: After standard Time-Out procedure / protocol, using sterile technique and full barrier precautions, an Arrow Triple Lumen Catheter inserted into Right Femoral Vein without any complications. All ports with good venous blood return and flushed with sterile saline. Patient tolerated the procedure well. Femoral site chosen due to existing coagulopathy and thrombocytopenia.
[2016-09-08] MEDS: levETIRAcetam 500 MG in Sodium Chloride 0.9% 100 ML IVPB SCH ×2 (14:41→22:26)
[2016-09-08] MEDS ORDERED: Lidocaine 2 Grams in D5W 500 ML IV ONE (16:25)
[2016-09-08] MEDS: Lidocaine 2 Grams in D5W 500 ML IV SCH (17:00)
[2016-09-08 17:17] LABS: CALCIUM 8.7 mg/dL (8.4-10.2); MAGNESIUM 1.4 MG/DL (1.6-2.3); PHOSPHOROUS 3.8 mg/dl (2.5-4.5); POTASSIUM 4.2 MMOL/L (3.6-5.0)
--- NOTE | 2016-09-08 18:04 | PN ---
DATE: 09/08/2016 The patient is lying on the bed on a ventilator. The patient apparently was intubated after he was n oted to be sleepy and was in CO2 narcosis. The patient was also coded today and is status post code after being in ventricular fibrillation. PHYSICAL EXAMINATION: VITAL SIGNS: His blood pressure is 104/78, heart rate is 83 per minute, breathing at a rate of 16 pe r minute, temperature is 101.6 degrees Fahrenheit. HEENT: Normocephalic, atraumatic. NECK: Supple. There are no carotid bruits. LUNGS: Clear. CARDIOVASCULAR: S1, S2 audible. No murmurs. ABDOMEN: Soft, nontender, bowel sounds present. NEUROLOGIC EXAMINATION: MENTAL STATUS: The patient opens his eyes. He does not follow any commands. There is a right gaze preference. His eye does move on doll's eye movement. There is no obvious facial asymmetry. MOTOR: Tone is decreased in all 4 extremities. He is not withdrawing his upper extremities to noxio us painful stimuli. There is very minimal withdrawal of the lower extremity to noxious painful stimu li. Reflexes are absent. Plantars no response. LABORATORY DATA: Labs reviewed, show WBC 5.7, hemoglobin of 12.4, hematocrit 38.8 and platelets of 5 6,000. His sodium 145, potassium 4.2, chloride 96, carbon dioxide 31, BUN of 29, creatinine 2.0 and glucose of 230. IMPRESSION: 1. Status post code, now a little encephalopathic, may be secondary to medication side effect. The patient is on Diprivan versus questionable hypoxic injury. 2. Status post CO2 narcosis of questionable etiology, possible patient might have had a seizure. Ho wever, it was not witnessed. 3. New onset of seizure because of alcohol withdrawal. 4. Respiratory failure. RECOMMENDATIONS: 1. After discussion with ICU physician, the patient was started on Keppra empirically. 2. The patient to have a repeat CT scan of the head. 3. The patient to have a repeat electroencephalogram. 4. The patient to have ventilatory support. 5. Please continue supportive care and other treatment. Thank you for the opportunity to participate in the care of this patient. Julio Cesar Quintero MD cc: [id number] TT: 09/08/2016 18:04:15 Confirmation # [id number] Dictation # [id number] tn
[2016-09-08] MEDS ORDERED: Sodium Chloride 0.9% 500 ML IV ONE (20:50)
--- NOTE | 2016-09-08 20:52 | CP.PCM.PCO ---
Physician Communication Note - Physician Communication Note Physician Communication Note: BP 86/59mmHg with HR 85/min: 500ml of NS IV Bolus ordered
[2016-09-08] MEDS ORDERED: DOPamine 400mg/250ml D5W 250 ML IV ONE (21:52)
--- NOTE | 2016-09-08 22:03 | PN ---
DATE: 09/08/2016 The patient is seen today 09/08/2016. He is in intensive care unit and he is still intubated. Here, the patient has developed ventricular fibrillation, and he was coded for about 5 minutes, then conve rted to sinus rhythm. VITAL SIGNS: 114/70, temperature 101.2, respiratory rate 1, and pulse 79. HEENT: Slightly pale mucosa of the conjunctivae. NECK: No JVD, no carotid bruit, no lymph node, no thyromegaly. CHEST AND LUNGS: Bilateral symmetrical expansion, a few basilar rales. CARDIOVASCULAR SYSTEM: PMI not localized. S1, S2. No additional sounds. ABDOMEN: Normoactive bowel sounds, no tenderness, no organomegaly, no masses. EXTREMITIES: No cyanosis, no clubbing, no edema. CENTRAL NERVOUS SYSTEM: The patient is sedated, on ventilator. ASSESSMENT: 1. Alcohol withdrawal seizures. 2. Dilated cardiomyopathy. 3. Respiratory failure likely secondary to CO2 retention, secondary to a seizure. 4. Thrombocytopenia. 5. Status post ventricular fibrillation and a cardiac code. Continue current medications, and ventilator management, and IV antibiotics, and blood culture for th e fever, and follow up with ID recommendations and cardiology recommendations. Canelo Ellison MD cc: [id number] TT: 09/08/2016 22:03:08 Confirmation # [id number] Dictation # [id number]
--- NOTE | 2016-09-08 22:42 | CP.PCM.PN ---
Subjective - Date & Time of Evaluation Date of Evaluation: 09/08/16 Time of Evaluation: 16:00 - Subjective Subjective: SEEN ON RENAL F/U S/P EMPERATRIZ BLUE BP IS LOW .. ON PRESSOR Objective - Vital Signs/Intake and Output Vital Signs (last 24 hours): Temp Pulse Resp BP Pulse Ox 99.8 F H 67 15 80/55 L 95 09/08/16 21:06 09/08/16 22:25 09/08/16 20:00 09/08/16 22:25 09/08/16 20:00 Intake and Output: 09/08/16 09/09/16 18:59 06:59 Intake Total 100 Output Total 2800 Balance -2800 100 - Medications Medications: Current Medications Acetaminophen (Tylenol 325mg Tab) 650 mg PO Q4 PRN PRN Reason: Fever >100.4 F Last Admin: 09/08/16 20:06 Dose: 650 mg Carvedilol (Coreg) 12.5 mg PO Q12 [facility] [place] Last Admin: 09/08/16 22:25 Dose: Not Given Folic Acid (Folic Acid) 1 mg PO DAILY [facility] [place] Last Admin: 09/08/16 08:02 Dose: 1 mg Furosemide (Lasix) 40 mg IVP DAILY [facility] [place] Last Admin: 09/08/16 08:02 Dose: 40 mg Piperacillin Sod/Tazobactam (Sod 2.25 gm/ Sodium Chloride) 100 mls @ 100 mls/ hr IVPB Q8 [facility] [place] Last Admin: 09/08/16 18:33 Dose: 100 mls/hr Vancomycin HCl 750 mg/ Sodium (Chloride) 250 mls @ 166.667 mls/hr IVPB Q12 [facility] [place] Last Admin: 09/08/16 22:30 Dose: 166.667 mls/hr Propofol (Diprivan) 100 mls @ 2.966 mls/hr IV .Q24H [facility] [place]; 5 MCG/KG/MIN PRN Reason: Protocol Stop: 09/09/16 08:31 Last Admin: 09/08/16 08:30 Dose: 2.966 mls/hr Levetiracetam 500 mg/ Sodium (Chloride) 105 mls @ 210 mls/hr IVPB Q12 [facility] [place] Last Admin: 09/08/16 22:26 Dose: 210 mls/hr Amiodarone HCl 900 mg/ (Dextrose) 518 mls @ 34.53 mls/hr IVPB .Q15H1M [facility]; 1 MG /MIN PRN Reason: Protocol Last Admin: 09/08/16 14:00 Dose: 34.53 mls/hr Lidocaine HCl/Dextrose (Lidocaine 2 Grams In D5w) 500 mls @ 30 mls/hr IV .[id number] [facility]; 2 MG/MIN PRN Reason: Protocol Last Admin: 09/08/16 17:00 Dose: 30 mls/hr Dopamine HCl/Dextrose (Dopamine 400mg/250ml D5w) 250 mls @ 37.081 mls/hr IV .Q6H45M ONE; 10 MCG/KG/MIN PRN Reason: Protocol Stop: 09/09/16 04:36 Last Admin: 09/08/16 22:25 Dose: 37.081 mls/hr Insulin Human Regular (Humulin R) 0 units SC ACCU-CHECK C[facility]NEY PRN Reason: Protocol Last Admin: 09/08/16 22:36 Dose: Not Given Lactulose (Enulose) 20 gm PO BID [facility] [place] Last Admin: 09/08/16 18:30 Dose: Not Given Lorazepam (Ativan) 1 mg IVP Q4H PRN PRN Reason: agitation/anxiety on vent Last Admin: 09/08/16 08:00 Dose: 1 mg Multivitamins/Minerals (Therapeutic-M Tab) 1 tab PO DAILY [facility] [place] Last Admin: 09/08/16 08:03 Dose: 1 tab Pantoprazole Sodium (Protonix Inj) 40 mg IVP DAILY [facility] [place] Last Admin: 09/08/16 08:02 Dose: 40 mg Rifaximin (Xifaxan) 550 mg PO BID [facility] [place] Last Admin: 09/08/16 18:33 Dose: 550 mg Spironolactone (Aldactone) 50 mg PO DAILY [facility] [place] Thiamine HCl (Vitamin B1 Tab) 100 mg PO DAILY [facility] [place] Last Admin: 09/08/16 08:02 Dose: 100 mg - Labs Labs: 09/08/16 04:40 09/08/16 17:00 PT 13.9 SECONDS (9.6-11.2) H 09/06/16 04:25 INR 1.34 (0.92-1.08) H 09/06/16 04:25 APTT 24.3 SECONDS (23.3-32.5) 09/06/16 04:25 Assessment and Plan - Assessment and Plan (Free Text) Assessment: NONA .. WORSENING OF RENAL FUNCTIO INCREASE IVF TO D5 1/2 AT 125 CC/H WACH RENAL FUNCTION CLOSELY
[2016-09-09] MEDS: Dextrose 5%/0.45% NS 1,000 ML IV SCH ×2 (00:05→15:34)
[2016-09-09] MEDS ORDERED: DOPamine 400mg/250ml D5W 250 ML IV ONE ×2 (05:03→05:14)
[2016-09-09 05:27] LABS: ABG ALLEN TEST YES; ABG MECHANICAL RATE 14; ARTERIAL BLOOD GAS MODE A/C; ARTERIAL BLOOD GAS O2 CAPACITY 18.8 mL/dL (16-24); ARTERIAL BLOOD GAS O2 CONTENT 18.5 ML/dL (15-23); ARTERIAL BLOOD GAS PH 7.53 (7.35-7.45); ARTERIAL BLOOD GAS PO2 83 mm/Hg (80-100); ARTERIAL BLOOD HGB O2 SAT 95.3 % (95.0-98.0); ATERIAL BLOOD GAS PEEP 5; CARBOXYHEMOGLOBIN 1.9 % (0.5-1.5); HHB 1.6 % (0.0-5.0); METHEMOGLOBIN 1.2 % (0.0-3.0)
[2016-09-09 06:17] LABS: ALB/GLOB RATIO 0.7 (1.0-2.1); BILIRUBIN,TOTAL 2.4 mg/dl (0.2-1.3); CALCIUM 8.1 mg/dL (8.4-10.2); MAGNESIUM 2.3 MG/DL (1.6-2.3); POTASSIUM 4.5 MMOL/L (3.6-5.0); TOTAL PROTEIN 6.9 G/DL (6.3-8.2)
[2016-09-09] MEDS: Insulin Regular 100 units/ml SC SCH ×4 (07:39→22:08)
--- NOTE | 2016-09-09 08:03 | PN ---
DATE: 09/08/2016 SUBJECTIVE: The patient is still intubated in intensive care unit. The patient that went into fibri llation today and he was coded for 5 minutes and converted to sinus rhythm. PHYSICAL EXAMINATION: VITAL SIGNS: Blood pressure after code 114/82, temperature 101.6, respiratory rate 16, pulse NECK: No JVD. [facility] cc: [phone] TT: 09/08/2016 22:04:11 Confirmation # [id number] Dictation # [id number] ln
--- NOTE | 2016-09-09 08:04 | CARD ---
APPROVED REPORT EKG Measurement Heart [id number] <Conclusion> Normal sinus rhythm Left axis deviation Low voltage QRS Cannot rule out Anterior infarct, age undetermined ST & T wave abnormality, consider lateral ischemia Prolonged QT Abnormal ECG
--- NOTE | 2016-09-09 08:39 | CP.CCUPN ---
CCU Subjective - Physician Review Subjective (Free Text): 09/09/16 12:03 Pt seen and examined at bedside in the ICU. Pt is currently intubated, briefly opens eyes to loud verbal cues, but does not follow directions. However, during a several minute observation, he does move all 4 extremities on his own. Other pertinent history unable to be taken. Pt is unable to confirm or deny series of ROS questions. CCU Objective - Vital Signs / Intake & Output Vital Signs (Last 4 hours): Vital Signs Temp Pulse Resp BP Pulse Ox 09/09/16 08:00 101.1 F H 89 12 110/80 98 09/09/16 06:00 89 12 107/81 98 09/09/16 05:00 88 16 100/73 96 09/09/16 04:46 101.1 F H Intake and Output (Last 8hrs): Intake & Output 09/08/16 09/09/16 09/09/16 22:59 06:59 14:59 Intake Total 100 1575 Output Total 2800 Balance -2700 1575 Intake: IV 1275 Intake, Piggyback 100 Free Water Flush 300 Output: Urine 2800 Urethral (Clayton) 2800 - Physical Exam Physical Exam Limitations: Positive for: Altered Mental Status, Clinical Condition Head: Positive for: Atraumatic, Normocephalic Pupils: Positive for: PERRL. Negative for: Sluggish, Non-Reactive Extroacular Muscles: Positive for: EOMI Conjunctiva: Positive for: Normal. Negative for: Injected, Icteric Mouth: Positive for: Moist Mucous Membranes Neck: Positive for: Trachea Midline. Negative for: JVD, Lymphadenopathy, Bruit Respiratory/Chest: Positive for: Clear to Auscultation, Good Air Exchange, Decreased Breath Sounds. Negative for: Respiratory Distress, Rhonchi Cardiovascular: Positive for: Regular Rate and Rhythm, Normal S1, S2, Peripheal Pulses Present. Negative for: Murmurs Abdomen: Positive for: Normal Bowel Sounds. Negative for: Tenderness, Peritoneal Signs Upper Extremity: Positive for: Normal Inspection, NORMAL PULSES. Negative for: Cyanosis, Edema Lower Extremity: Positive for: Normal Inspection, NORMAL PULSES. Negative for: Edema, CALF TENDERNESS Neurological: Positive for: Other (Patient intubated, briefly opens eyes to loud voices) Skin: Positive for: Warm, Dry, Normal Color. Negative for: Rashes - Medications Active Medications: Active Medications Generic Name Dose Route Start Last Admin Trade Name Freq PRN Reason Stop Dose Admin Acetaminophen 650 mg 09/07/16 15:57 09/09/16 04:46 Tylenol 325mg Tab PO 650 mg Q4 PRN Administration Fever >100.4 F Carvedilol 12.5 mg 09/08/16 09:00 09/08/16 22:25 Coreg PO Not Given Q12 [facility] Folic Acid 1 mg 09/04/16 09:00 09/08/16 08:02 Folic Acid PO 1 mg DAILY [facility] Administration Vancomycin HCl 750 mg/ Sodium 250 mls @ 166.667 mls/hr 09/04/16 09:00 09/08/16 22:30 Chloride IVPB 166.667 mls/hr Q12 [facility] Administration Levetiracetam 500 mg/ Sodium 105 mls @ 210 mls/hr 09/08/16 12:45 09/08/16 22:26 Chloride IVPB 210 mls/hr Q12 [facility] Administration Amiodarone HCl 900 mg/ 518 mls @ 34.53 mls/hr 09/08/16 14:00 09/08/16 23:50 Dextrose IVPB 0.5 mg/min .Q15H1M [facility] Titration Protocol 1 MG/MIN Lidocaine HCl/Dextrose 500 mls @ 30 mls/hr 09/08/16 17:00 09/08/16 17:00 Lidocaine 2 Grams In D5w IV 30 mls/hr .[id number] [facility] Administration Protocol 2 MG/MIN Dextrose/Sodium Chloride 1,000 mls @ 100 mls/hr 09/08/16 23:00 09/09/16 00:05 Dextrose 5%/0.45% Ns 1000 Ml IV 100 mls/hr .Q10H [facility] Administration Dopamine HCl/Dextrose 250 mls @ 29.665 mls/hr 09/09/16 05:14 09/09/16 05:25 Dopamine 400mg/250ml D5w IV 09/09/16 13:39 29.665 mls/hr .Q8H26M ONE Administration Protocol 8 MCG/KG/MIN Insulin Human Regular 0 units 09/03/16 23:00 09/09/16 07:39 Humulin R SC Not Given ACCU-CHECK [facility] Protocol Lactulose 20 gm 09/05/16 11:30 09/08/16 18:30 Enulose PO Not Given BID [facility] Lorazepam 1 mg 09/08/16 02:41 09/08/16 08:00 Ativan IVP 1 mg Q4H PRN Administration agitation/anxiety on vent Multivitamins/Minerals 1 tab 09/04/16 09:00 09/08/16 08:03 Therapeutic-M Tab PO 1 tab DAILY [facility] Administration Pantoprazole Sodium 40 mg 09/06/16 09:00 09/08/16 08:02 Protonix Inj IVP 40 mg DAILY [facility] Administration Rifaximin 550 mg 09/05/16 17:00 09/08/16 18:33 Xifaxan PO 550 mg BID [facility] Administration Spironolactone 50 mg 09/09/16 09:00 Aldactone PO DAILY [facility] Thiamine HCl 100 mg 09/04/16 09:00 09/08/16 08:02 Vitamin B1 Tab PO 100 mg DAILY [facility] Administration - Patient Studies Lab Studies: Microbiology Studies 09/07/16 07:45 Blood Culture - Preliminary Blood-Venous NO GROWTH AFTER 48 HOURS 09/07/16 07:45 Blood Culture - Preliminary Blood-Venous NO GROWTH AFTER 48 HOURS 09/04/16 05:15 Blood Culture - Final Blood-Thru Central Line NO GROWTH AFTER 5 DAYS Gram Stain - Final TEST NOT PERFORMED 09/04/16 05:15 Blood Culture - Final Blood-Thru Central Line NO GROWTH AFTER 5 DAYS Gram Stain - Final TEST NOT PERFORMED 09/07/16 12:46 Urine Culture - Final Urine No Growth (<1,000 CFU/ML) 09/03/16 09:50 Blood Culture - Final Blood NO GROWTH AFTER 5 DAYS Gram Stain - Final TEST NOT PERFORMED 09/03/16 09:45 Blood Culture - Final Blood NO GROWTH AFTER 5 DAYS Gram Stain - Final TEST NOT PERFORMED Lab Studies 09/09/16 09/09/16 09/09/16 Range/Units 06:07 05:27 04:30 pCO2 39 (35-45) mm/Hg pO2 83 (80-100) mm/Hg HCO3 32.0 H (21-28) mmol/L ABG pH 7.53 H (7.35-7.45) ABG Total CO2 33.8 H (22-28) mmol/L ABG O2 Saturation 98.3 H (95-98) % ABG O2 Content 18.5 (15-23) ML/dL ABG Base Excess 9.2 H (-2.0-3.0) mmol/L ABG Hemoglobin 13.8 (11.7-17.4) g/dL ABG Carboxyhemoglobin 1.9 H (0.5-1.5) % POC ABG HHb (Measured) 1.6 (0.0-5.0) % ABG Methemoglobin 1.2 (0.0-3.0) % ABG O2 Capacity 18.8 (16-24) mL/dL Jim Test Yes ABG Potassium (3.6-5.2) mmol/L A-a O2 Difference 225.0 mm/Hg Hgb O2 Saturation 95.3 (95.0-98.0) % Glucose (75-110) mg/dL Lactate (0.7-2.1) mmol/L Vent Mode A/c Mechanical Rate 14 FiO2 50.0 % Tidal Volume 550 PEEP 5 Sodium 144 (132-148) mmol/l Potassium 4.5 (3.6-5.0) MMOL/L Chloride 100 (98-107) mmol/L Carbon Dioxide 26 (22-30) mmol/L Anion Gap 22 H (10-20) BUN 36 H (9-20) mg/dl Creatinine 1.9 H (0.8-1.5) mg/dL Est GFR ( Amer) 45 Est GFR (Non-Af Amer) 37 POC Glucose (mg/dL) 280 H (65-110) mg/dL Random Glucose 311 H (75-110) mg/dL Calcium 8.1 L (8.4-10.2) mg/dL Phosphorus (2.5-4.5) mg/dl Magnesium 2.3 (1.6-2.3) MG/DL Total Bilirubin 2.4 H (0.2-1.3) mg/dl AST 133 H (17-59) U/L ALT 136 H (21-72) U/L Alkaline Phosphatase 134 H (38-126) U/L Total Protein 6.9 (6.3-8.2) G/DL Albumin 2.7 L (3.5-5.0) g/dL Globulin 4.1 H (2.2-3.9) gm/dL Albumin/Globulin Ratio 0.7 L (1.0-2.1) Arterial Blood Potassium (3.6-5.2) mmol/L 09/08/16 09/08/16 09/08/16 Range/Units 21:28 17:00 15:58 pCO2 (35-45) mm/Hg pO2 (80-100) mm/Hg HCO3 (21-28) mmol/L ABG pH (7.35-7.45) ABG Total CO2 (22-28) mmol/L ABG O2 Saturation (95-98) % ABG O2 Content (15-23) ML/dL ABG Base Excess (-2.0-3.0) mmol/L ABG Hemoglobin (11.7-17.4) g/dL ABG Carboxyhemoglobin (0.5-1.5) % POC ABG HHb (Measured) (0.0-5.0) % ABG Methemoglobin (0.0-3.0) % ABG O2 Capacity (16-24) mL/dL Jim Test ABG Potassium (3.6-5.2) mmol/L A-a O2 Difference mm/Hg Hgb O2 Saturation (95.0-98.0) % Glucose (75-110) mg/dL Lactate (0.7-2.1) mmol/L Vent Mode Mechanical Rate FiO2 % Tidal Volume PEEP Sodium 145 (132-148) mmol/l Potassium 4.2 (3.6-5.0) MMOL/L Chloride 96 L (98-107) mmol/L Carbon Dioxide 31 H (22-30) mmol/L Anion Gap 22 H (10-20) BUN 29 H (9-20) mg/dl Creatinine 2.0 H (0.8-1.5) mg/dL Est GFR ( Amer) 43 Est GFR (Non-Af Amer) 35 POC Glucose (mg/dL) 260 H 230 H (65-110) mg/dL Random Glucose 263 H (75-110) mg/dL Calcium 8.7 (8.4-10.2) mg/dL Phosphorus 3.8 (2.5-4.5) mg/dl Magnesium 1.4 L (1.6-2.3) MG/DL Total Bilirubin (0.2-1.3) mg/dl AST (17-59) U/L ALT (21-72) U/L Alkaline Phosphatase (38-126) U/L Total Protein (6.3-8.2) G/DL Albumin (3.5-5.0) g/dL Globulin (2.2-3.9) gm/dL Albumin/Globulin Ratio (1.0-2.1) Arterial Blood Potassium (3.6-5.2) mmol/L 09/08/16 Range/Units 12:54 pCO2 47 H (35-45) mm/Hg pO2 148 H (80-100) mm/Hg HCO3 33.3 H (21-28) mmol/L ABG pH 7.49 H (7.35-7.45) ABG Total CO2 37.2 H (22-28) mmol/L ABG O2 Saturation 100.0 H (95-98) % ABG O2 Content (15-23) ML/dL ABG Base Excess 10.8 H (-2.0-3.0) mmol/L ABG Hemoglobin (11.7-17.4) g/dL ABG Carboxyhemoglobin (0.5-1.5) % POC ABG HHb (Measured) (0.0-5.0) % ABG Methemoglobin (0.0-3.0) % ABG O2 Capacity (16-24) mL/dL Jim Test Yes ABG Potassium 3.4 L (3.6-5.2) mmol/L A-a O2 Difference 506.0 mm/Hg Hgb O2 Saturation (95.0-98.0) % Glucose 193 H (75-110) mg/dL Lactate 2.3 H (0.7-2.1) mmol/L Vent Mode A/c Mechanical Rate 14 FiO2 100.0 % Tidal Volume 550 PEEP 5 Sodium 142.0 (132-148) mmol/l Potassium (3.6-5.0) MMOL/L Chloride 102.0 (98-107) mmol/L Carbon Dioxide (22-30) mmol/L Anion Gap (10-20) BUN (9-20) mg/dl Creatinine (0.8-1.5) mg/dL Est GFR ( Amer) Est GFR (Non-Af Amer) POC Glucose (mg/dL) (65-110) mg/dL Random Glucose (75-110) mg/dL Calcium (8.4-10.2) mg/dL Phosphorus (2.5-4.5) mg/dl Magnesium (1.6-2.3) MG/DL Total Bilirubin (0.2-1.3) mg/dl AST (17-59) U/L ALT (21-72) U/L Alkaline Phosphatase (38-126) U/L Total Protein (6.3-8.2) G/DL Albumin (3.5-5.0) g/dL Globulin (2.2-3.9) gm/dL Albumin/Globulin Ratio (1.0-2.1) Arterial Blood Potassium 3.4 L (3.6-5.2) mmol/L Laboratory Results - last 24 hr 09/08/16 09/08/16 09/08/16 12:54 15:58 17:00 pCO2 47 H pO2 148 H HCO3 33.3 H ABG pH 7.49 H ABG Total CO2 37.2 H ABG O2 Saturation 100.0 H ABG O2 Content ABG Base Excess 10.8 H ABG Hemoglobin ABG Carboxyhemoglobin POC ABG HHb (Measured) ABG Methemoglobin ABG O2 Capacity Jim Test Yes ABG Potassium 3.4 L A-a O2 Difference 506.0 Hgb O2 Saturation Sodium 142.0 145 Chloride 102.0 96 L Glucose 193 H Lactate 2.3 H Vent Mode A/c Mechanical Rate 14 FiO2 100.0 Tidal Volume 550 PEEP 5 Potassium 4.2 Carbon Dioxide 31 H Anion Gap 22 H BUN 29 H Creatinine 2.0 H Est GFR ( Amer) 43 Est GFR (Non-Af Amer) 35 POC Glucose (mg/dL) 230 H Random Glucose 263 H Calcium 8.7 Phosphorus 3.8 Magnesium 1.4 L Total Bilirubin AST ALT Alkaline Phosphatase Total Protein Albumin Globulin Albumin/Globulin Ratio Arterial Blood Potassium 3.4 L 09/08/16 09/09/16 09/09/16 21:28 04:30 05:27 pCO2 39 pO2 83 HCO3 32.0 H ABG pH 7.53 H ABG Total CO2 33.8 H ABG O2 Saturation 98.3 H ABG O2 Content 18.5 ABG Base Excess 9.2 H ABG Hemoglobin 13.8 ABG Carboxyhemoglobin 1.9 H POC ABG HHb (Measured) 1.6 ABG Methemoglobin 1.2 ABG O2 Capacity 18.8 Jim Test Yes ABG Potassium A-a O2 Difference 225.0 Hgb O2 Saturation 95.3 Sodium 144 Chloride 100 Glucose Lactate Vent Mode A/c Mechanical Rate 14 FiO2 50.0 Tidal Volume 550 PEEP 5 Potassium 4.5 Carbon Dioxide 26 Anion Gap 22 H BUN 36 H Creatinine 1.9 H Est GFR ( Amer) 45 Est GFR (Non-Af Amer) 37 POC Glucose (mg/dL) 260 H Random Glucose 311 H Calcium 8.1 L Phosphorus Magnesium 2.3 Total Bilirubin 2.4 H AST 133 H ALT 136 H Alkaline Phosphatase 134 H Total Protein 6.9 Albumin 2.7 L Globulin 4.1 H Albumin/Globulin Ratio 0.7 L Arterial Blood Potassium 09/09/16 06:07 pCO2 pO2 HCO3 ABG pH ABG Total CO2 ABG O2 Saturation ABG O2 Content ABG Base Excess ABG Hemoglobin ABG Carboxyhemoglobin POC ABG HHb (Measured) ABG Methemoglobin ABG O2 Capacity Jim Test ABG Potassium A-a O2 Difference Hgb O2 Saturation Sodium Chloride Glucose Lactate Vent Mode Mechanical Rate FiO2 Tidal Volume PEEP Potassium Carbon Dioxide Anion Gap BUN Creatinine Est GFR ( Amer) Est GFR (Non-Af Amer) POC Glucose (mg/dL) 280 H Random Glucose Calcium Phosphorus Magnesium Total Bilirubin AST ALT Alkaline Phosphatase Total Protein Albumin Globulin Albumin/Globulin Ratio Arterial Blood Potassium EKG/Cardiology Studies: Cardiology / EKG Studies 09/08/16 12:15 EKG [ELECTROCARDIOGRAM] Stat Comment: Mode Of Transportation: PORTABLE Reason For Exam: post code blue PRE OP:: N Does Patient Have a Pacemaker?: No Precautions: Suicide Aspiration Fall Prevention PERFORMING PHYSICIAN/PROVIDER:: Alexandre Turner V Fingerstick Blood Sugar Results: 280 Review of Systems - Review of Systems Review of Systems: see HPI Critical Care Progress Note - Ventilator Checklist Head of Bed 30 Degrees: Yes Daily Sedation Vacation: Yes Daily Spontaneous Breathing Trial: Yes PUD Prophalyxis: Yes DVT Prophylaxis: Yes Oral Care with Chlorhexidine Gluconate {CHG}: Yes - Vent Settings MODE:: PRVC TIDAL VOLUME:: 450 RESP RATE:: 14 FIO2:: 50 PEEP:: 5 - Extremities/Vascular Does the Patient have a Central Venous Catheter?: Yes Insertion Site: Femoral Vein Does the Patient need a Central Venous Catheter?: Yes Does the Patient have a [place] Catheter?: Yes Does the Patient need a [place] Catheter?: Yes - Restraints Justification for Restraints: High risk for self extubation Assessment/Plan - Assessment and Plan (Free Text) Plan: 51 yo M w PMHx of HTN, Crohn's, and etoh dependency was admitted for seizures and etoh withdrawal, is currently intubated w sedation and minimally responsive to loud voices 1) Acute respiratory failure with hypercapnia -Presently stable, still intubated -Rate 14, Tidal Vol 550, PEEP 5, FIO2 50% ---will decrease Tidal Vol to 450 ---check w/ ABG -Vancomycin 750mg IVPB Q12H -Zosyn 2.25gm IVPB Q8H -Lasix 40mg PO Daily -Spironolactone 50mg PO Daily -f/u Respiratory function -f/u Diuresis' effect on function -f/u ABG -f/u kidney fcn and lytes with daily labs 2) Unknown Fever of Origin -Intermittent spikes, previous night as high as 101.1F -CK normalized at 132 (09/08), down from 5344 (09/01) -Procalcitonin 0.67 -BCx pending neg -UCx neg -Sputum Cx pending neg -Neurology Onboard -f/u EEG -f/u CT Head -f/u pending cultures 3) Altered mental status -Multifactorial, possibly seizure disorder VS hypercapnia VS etoh withdrawal -Intermittent fever spikes -Frequent neuro-check, Seizure precautions. -Neurology Onboard -Keppra 500mg BID -f/u EEG from today (09/09) -f/u CT Head from today (09/09) -f/u pending cultures 4) Congestive Cardiomyopathy -Likely etoh induced -LV Systolic Fcn severely impaired, EF of 15-20% -Severe Mitral Regurg, Moderate Tricuspid Regurg -Dopamine d/c'ed, too arrhythmogenic, switched to Levophed -f/u Vitals 5) Hepatic encephalopathy -Lactulose 20 gm PO BID -Rifaximin 550 mg PO BID 6) Aspiration pneumonia -Vancomycin 750 mg IVPB Q12 CORTNEY -Zosyn 2.25gm IVPB Q8H 7) Thrombocytopenia -No signs of active bleed at this time 8) Hypernatremia -Has resolved
[2016-09-09] MEDS: levETIRAcetam 500 MG in Sodium Chloride 0.9% 100 ML IVPB SCH ×2 (09:49→20:53)
[2016-09-09] MEDS: Multivitamin With Minerals Tab PO SCH (09:51)
[2016-09-09] MEDS: Lidocaine 2 Grams in D5W 500 ML IV SCH (09:58)
--- NOTE | 2016-09-09 10:01 | RAD ---
HISTORY: Intubated. COMPARISON: Comparison chest dated 09/08/2016. FINDINGS: LUNGS: In situ ETT, tip of which lies approximately 4.86 cm above maxwell. In situ NGT again noted tip of which overlies left upper quadrant of the abdomen. Mild vascular congestive changes slightly improved. Probable small bilateral effusions and mild bibasilar atelectasis PLEURA: No significant pleural effusion identified, no pneumothorax apparent. CARDIOVASCULAR: Heart remains enlarged. OSSEOUS STRUCTURES: No significant abnormalities. VISUALIZED UPPER ABDOMEN: Normal. OTHER FINDINGS: None. IMPRESSION: ETT and NGT as above. Cardiomegaly. Mild pulmonary vascular congestive changes slightly improved. Probable small bilateral effusions and mild bibasilar atelectasis
[2016-09-09 10:10] LABS: HEMATOCRIT 41.4 % (35.0-51.0); MEAN CELL VOLUME 93.9 fl (80.0-94.0); MEAN CORPUSCULAR HEMOGLOBIN 31.4 pg (27.0-31.0); MEAN CORPUSCULAR HGB CONC 33.4 g/dL (33.0-37.0); RED CELL DISTRIBUTION WIDTH 15.2 % (11.5-14.5)
--- NOTE | 2016-09-09 11:20 | CP.PCM.CON ---
History of Present Illness - History of Present Illness History of Present Illness: Asked to evaluate this 51 year old male who was admitted on 08/30/2016 after having a seizure thought to possibly be related to alcohol withdrawal. At that time there were infiltrates seen in the RUL as well as the RLL consistent with an aspiration event and altered mental status. He was admitted to telemetry and seen by Neurology with further testing requested. He was treated for pneumonia despite a lack of leukocytosis or fever. He developed increased agitation and was uncooperative resulting in transfer to the ICU for close observation and increased sedation. He was seen by ID because of a positive blood culture and antibiotic adjustments were made. He was given vitamin supplements and continued sedation as well as IV fluids. He was seen by Renal for NONA and GI for elevated LFT's, all the while on continued antibiotic therapy. Chest x-rays continued to show a RLL infiltrate and cardiomegaly and developed cardiac arrhythmia resulting in endotracheal intubation on the because of hypercapnic ventilatory failure. The cause of his CO2 retention was likely multifactoria owing to his pneumonia, altered mental status, sedation and possibly seizure activity. Presently he is somnolent, briefly opening his eyes without apparent wakefulness or following commands. His CXR still shows bilateral basal haziness and cardiomegaly with a new RUL infiltrate seen. There is some question of his past tobacco habit, but he has not smoked in the last year and there is no history of tobacco related lung disease. Past Patient History - Past Medical History & Family History Past Medical History?: Yes - Past Social History Smoking Status: Former Smoker Alcohol: Other (heavy) Drugs: Cocaine (in the past) - CARDIAC Hx Cardiac Disorders: Yes Hx Hypertension: Yes - PULMONARY Hx Respiratory Disorders: No - NEUROLOGICAL Hx Neurological Disorder: Yes Hx Seizures: Yes - HEENT Hx HEENT Problems: No - RENAL Hx Chronic Kidney Disease: No - ENDOCRINE/METABOLIC Hx Endocrine Disorders: Yes Hx Diabetes Mellitus Type 2: Yes - HEMATOLOGICAL/ONCOLOGICAL Hx Blood Disorders: No Hx Human Immunodeficiency Virus (HIV): No - INTEGUMENTARY Hx Dermatological Problems: No - MUSCULOSKELETAL/RHEUMATOLOGICAL Hx Musculoskeletal Disorders: Yes Hx Falls: Yes (fell last night on the back from the couch) - GASTROINTESTINAL Hx Gastrointestinal Disorders: Yes Hx Bowel Surgery: Yes Hx Crohn's Disease: Yes Other/Comment: LEFT ABDOMINAL HERNIA - GENITOURINARY/GYNECOLOGICAL Hx Genitourinary Disorders: No - PSYCHIATRIC Hx Psychophysiologic Disorder: Yes Hx Substance Use: Yes (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.) - SURGICAL HISTORY Hx Surgeries: Yes Hx Appendectomy: Yes Hx Herniorrhaphy: Yes (ventral?) Other/Comment: BOWEL RESECTION 1989, APPENDECTOMY 1983 - ANESTHESIA Hx Anesthesia: Yes Hx Anesthesia Reactions: No Hx Malignant Hyperthermia: No Has any member of the family had a problem w/ anesthesia?: No Meds Allergies/Adverse Reactions: Allergies Allergy/AdvReac Type Severity Reaction Status Date / Time ibuprofen [From Motrin] AdvReac NAUSEA Verified 08/30/16 02:45 - Medications Medications: Current Medications Acetaminophen (Tylenol 325mg Tab) 650 mg PO Q4 PRN PRN Reason: Fever >100.4 F Last Admin: 09/09/16 09:55 Dose: 650 mg Carvedilol (Coreg) 12.5 mg PO Q12 [facility] Last Admin: 09/09/16 09:47 Dose: 12.5 mg Folic Acid (Folic Acid) 1 mg PO DAILY [facility] Last Admin: 09/09/16 09:49 Dose: 1 mg Vancomycin HCl 750 mg/ Sodium (Chloride) 250 mls @ 166.667 mls/hr IVPB Q12 [facility] Last Admin: 09/09/16 09:52 Dose: 166.667 mls/hr Levetiracetam 500 mg/ Sodium (Chloride) 105 mls @ 210 mls/hr IVPB Q12 [facility] Last Admin: 09/09/16 09:49 Dose: 210 mls/hr Lidocaine HCl/Dextrose (Lidocaine 2 Grams In D5w) 500 mls @ 30 mls/hr IV .[id number] [facility]; 2 MG/MIN PRN Reason: Protocol Last Admin: 09/09/16 09:58 Dose: 30 mls/hr Dextrose/Sodium Chloride (Dextrose 5%/0.45% Ns 1000 Ml) 1,000 mls @ 100 mls/hr IV .Q10H [facility] Last Admin: 09/09/16 00:05 Dose: 100 mls/hr Amiodarone HCl 450 mg/ (Dextrose) 259 mls @ 34.53 mls/hr IVPB .[id number] [facility]; 1 MG /MIN PRN Reason: Protocol Norepinephrine Bitartrate 4 mg (/ Dextrose) 254 mls @ 9.52 mls/hr IV .Q24H [facility] ; 2.5 MCG/MIN PRN Reason: Protocol Insulin Human Regular (Humulin R) 0 units SC ACCU-CHECK [facility] PRN Reason: Protocol Last Admin: 09/09/16 07:39 Dose: Not Given Lactulose (Enulose) 20 gm PO BID [facility] Last Admin: 09/09/16 09:49 Dose: 20 gm Lorazepam (Ativan) 1 mg IVP Q4H PRN PRN Reason: agitation/anxiety on vent Last Admin: 09/08/16 08:00 Dose: 1 mg Multivitamins/Minerals (Therapeutic-M Tab) 1 tab PO DAILY [facility] Last Admin: 09/09/16 09:51 Dose: 1 tab Pantoprazole Sodium (Protonix Inj) 40 mg IVP DAILY [facility] Last Admin: 09/09/16 09:51 Dose: 40 mg Rifaximin (Xifaxan) 550 mg PO BID [facility] Last Admin: 09/09/16 09:52 Dose: 550 mg Spironolactone (Aldactone) 50 mg PO DAILY [facility] Last Admin: 09/09/16 09:47 Dose: 50 mg Thiamine HCl (Vitamin B1 Tab) 100 mg PO DAILY [facility] Last Admin: 09/09/16 09:52 Dose: 100 mg Physical Exam - Additional Findings Additional findings: Lying quietly in bed, does not respond to tactile stimulus. Brief spontaneous eye opening. No scleral icterus. Trachea midline, no visible JVD. Orally intubated, small volume mucoid secretions. No dullness to percussion of the anterior chest wall. No subcutaneous emphysema. Breath sounds are well heard anteriorly, decreased posteriorly in both lungs. Faint transmitted bronchial breath sounds are heard bilaterally. No rales or rhonchi. Heart sounds well heard, regular, without murmur. Trace ankle edema bilaterally. LE pulses faint but present in both feet. No cyanosis. Results - Vital Signs Recent Vital Signs: Last Vital Signs Temp 101.1 F H 09/09/16 08:00 Pulse 90 09/09/16 10:00 Resp 14 09/09/16 10:00 BP 122/82 09/09/16 10:00 Pulse Ox 99 09/09/16 10:00 - Labs Result Diagrams: 09/09/16 04:30 09/09/16 04:30 Labs: Laboratory Results - last 24 hr 09/08/16 09/08/16 09/08/16 12:54 15:58 17:00 WBC RBC Hgb Hct MCV MCH MCHC RDW Plt Count pCO2 47 H pO2 148 H HCO3 33.3 H ABG pH 7.49 H ABG Total CO2 37.2 H ABG O2 Saturation 100.0 H ABG O2 Content ABG Base Excess 10.8 H ABG Hemoglobin ABG Carboxyhemoglobin POC ABG HHb (Measured) ABG Methemoglobin ABG O2 Capacity Jim Test Yes ABG Potassium 3.4 L A-a O2 Difference 506.0 Hgb O2 Saturation Sodium 142.0 145 Chloride 102.0 96 L Glucose 193 H Lactate 2.3 H Vent Mode A/c Mechanical Rate 14 FiO2 100.0 Tidal Volume 550 PEEP 5 Potassium 4.2 Carbon Dioxide 31 H Anion Gap 22 H BUN 29 H Creatinine 2.0 H Est GFR ( Amer) 43 Est GFR (Non-Af Amer) 35 POC Glucose (mg/dL) 230 H Random Glucose 263 H Lactic Acid Calcium 8.7 Phosphorus 3.8 Magnesium 1.4 L Total Bilirubin AST ALT Alkaline Phosphatase Total Protein Albumin Globulin Albumin/Globulin Ratio Arterial Blood Potassium 3.4 L 09/08/16 09/09/16 09/09/16 21:28 04:30 05:27 WBC 9.0 D RBC 4.41 Hgb 13.8 Hct 41.4 MCV 93.9 D MCH 31.4 H MCHC 33.4 RDW 15.2 H Plt Count 101 L D pCO2 39 pO2 83 HCO3 32.0 H ABG pH 7.53 H ABG Total CO2 33.8 H ABG O2 Saturation 98.3 H ABG O2 Content 18.5 ABG Base Excess 9.2 H ABG Hemoglobin 13.8 ABG Carboxyhemoglobin 1.9 H POC ABG HHb (Measured) 1.6 ABG Methemoglobin 1.2 ABG O2 Capacity 18.8 Jim Test Yes ABG Potassium A-a O2 Difference 225.0 Hgb O2 Saturation 95.3 Sodium 144 Chloride 100 Glucose Lactate Vent Mode A/c Mechanical Rate 14 FiO2 50.0 Tidal Volume 550 PEEP 5 Potassium 4.5 Carbon Dioxide 26 Anion Gap 22 H BUN 36 H Creatinine 1.9 H Est GFR ( Amer) 45 Est GFR (Non-Af Amer) 37 POC Glucose (mg/dL) 260 H Random Glucose 311 H Lactic Acid Calcium 8.1 L Phosphorus Magnesium 2.3 Total Bilirubin 2.4 H AST 133 H ALT 136 H Alkaline Phosphatase 134 H Total Protein 6.9 Albumin 2.7 L Globulin 4.1 H Albumin/Globulin Ratio 0.7 L Arterial Blood Potassium 09/09/16 09/09/16 09/09/16 06:07 07:55 10:56 WBC RBC Hgb Hct MCV MCH MCHC RDW Plt Count pCO2 pO2 HCO3 ABG pH ABG Total CO2 ABG O2 Saturation ABG O2 Content ABG Base Excess ABG Hemoglobin ABG Carboxyhemoglobin POC ABG HHb (Measured) ABG Methemoglobin ABG O2 Capacity Jim Test ABG Potassium A-a O2 Difference Hgb O2 Saturation Sodium Chloride Glucose Lactate Vent Mode Mechanical Rate FiO2 Tidal Volume PEEP Potassium Carbon Dioxide Anion Gap BUN Creatinine Est GFR ( Amer) Est GFR (Non-Af Amer) POC Glucose (mg/dL) 280 H 316 H Random Glucose Lactic Acid 2.6 H Calcium Phosphorus Magnesium Total Bilirubin AST ALT Alkaline Phosphatase Total Protein Albumin Globulin Albumin/Globulin Ratio Arterial Blood Potassium Assessment & Plan (1) Aspiration pneumonia Status: Acute Priority: High Comment: RUL & RLL. (2) Acute respiratory failure with hypoxia and hypercapnia Status: Acute Priority: High Comment: Compensated on mechanical ventilation. (3) Pleural effusion Status: Acute Priority: High (4) Congestive cardiomyopathy Status: Chronic Priority: High (5) Altered mental status Status: Acute Priority: High - Assessment and Plan (Free Text) Assessment: Presently he is adequately oxygenated with corrected CO2. Antibiotics are ongoing for pneumonia and positive blood culture. Initiate weaning when altered mental state improves. Monitor pneumonia and effusions with daily CXR. May need a CT chest to evaluate for possible thoracentesis if unimproved. - Date & Time Date: 09/09/16 Time: 11:46
--- NOTE | 2016-09-09 11:41 | CP.PCM.PN ---
Subjective - Date & Time of Evaluation Date of Evaluation: 09/09/16 Time of Evaluation: 10:50 - Subjective Subjective: Developed VT/V ib yesterday afternoon following profuse diresis with Lasx D5W was being given to correct hypernatremia Pt was hemodynamically stable Pt had low K+ and low Mg readings yesterday (poss due to diuresis) Responded promptly to D/C cardioversion followed by IV Amiodarone Remained hemodynamically stable Now being loaded with Amio Will probably need AICD before discharge Presently appears stable from cardiac point of view Discusseed at length with Objective - Vital Signs/Intake and Output Vital Signs (last 24 hours): Temp Pulse Resp BP Pulse Ox 101.1 F H 90 14 122/82 99 09/09/16 08:00 09/09/16 10:00 09/09/16 10:00 09/09/16 10:00 09/09/16 10:00 Intake and Output: 09/09/16 09/09/16 06:59 18:59 Intake Total 1675 450 Balance 1675 450 - Medications Medications: Current Medications Acetaminophen (Tylenol 325mg Tab) 650 mg PO Q4 PRN PRN Reason: Fever >100.4 F Last Admin: 09/09/16 09:55 Dose: 650 mg Carvedilol (Coreg) 12.5 mg PO Q12 [facility] Last Admin: 09/09/16 09:47 Dose: 12.5 mg Folic Acid (Folic Acid) 1 mg PO DAILY [facility] Last Admin: 09/09/16 09:49 Dose: 1 mg Vancomycin HCl 750 mg/ Sodium (Chloride) 250 mls @ 166.667 mls/hr IVPB Q12 [facility] Last Admin: 09/09/16 09:52 Dose: 166.667 mls/hr Levetiracetam 500 mg/ Sodium (Chloride) 105 mls @ 210 mls/hr IVPB Q12 [facility] Last Admin: 09/09/16 09:49 Dose: 210 mls/hr Lidocaine HCl/Dextrose (Lidocaine 2 Grams In D5w) 500 mls @ 30 mls/hr IV .[id number] [facility]; 2 MG/MIN PRN Reason: Protocol Last Admin: 09/09/16 09:58 Dose: 30 mls/hr Dextrose/Sodium Chloride (Dextrose 5%/0.45% Ns 1000 Ml) 1,000 mls @ 100 mls/hr IV .Q10H [facility] Last Admin: 09/09/16 00:05 Dose: 100 mls/hr Amiodarone HCl 450 mg/ (Dextrose) 259 mls @ 34.53 mls/hr IVPB .Q7H31M [facility]; 1 MG /MIN PRN Reason: Protocol Norepinephrine Bitartrate 4 mg (/ Dextrose) 254 mls @ 9.52 mls/hr IV .Q24H [facility] ; 2.5 MCG/MIN PRN Reason: Protocol Insulin Human Regular (Humulin R) 0 units SC ACCU-CHECK [facility] PRN Reason: Protocol Last Admin: 09/09/16 07:39 Dose: Not Given Lactulose (Enulose) 20 gm PO BID [facility] Last Admin: 09/09/16 09:49 Dose: 20 gm Lorazepam (Ativan) 1 mg IVP Q4H PRN PRN Reason: agitation/anxiety on vent Last Admin: 09/08/16 08:00 Dose: 1 mg Multivitamins/Minerals (Therapeutic-M Tab) 1 tab PO DAILY [facility] Last Admin: 09/09/16 09:51 Dose: 1 tab Pantoprazole Sodium (Protonix Inj) 40 mg IVP DAILY [facility] Last Admin: 09/09/16 09:51 Dose: 40 mg Rifaximin (Xifaxan) 550 mg PO BID [facility] Last Admin: 09/09/16 09:52 Dose: 550 mg Spironolactone (Aldactone) 50 mg PO DAILY [facility] Last Admin: 09/09/16 09:47 Dose: 50 mg Thiamine HCl (Vitamin B1 Tab) 100 mg PO DAILY [facility] Last Admin: 09/09/16 09:52 Dose: 100 mg - Labs Labs: 09/09/16 04:30 09/09/16 04:30 PT 13.9 SECONDS (9.6-11.2) H 09/06/16 04:25 INR 1.34 (0.92-1.08) H 09/06/16 04:25 APTT 24.3 SECONDS (23.3-32.5) 09/06/16 04:25
--- NOTE | 2016-09-09 12:04 | CT ---
PROCEDURE: CT HEAD WITHOUT CONTRAST. HISTORY: ams, reduced responsiveness, ?seizures COMPARISON: Comparison is made to the previous study dated 08/30/2016 TECHNIQUE: Axial computed tomography images were obtained through the head/brain without intravenous contrast. Radiation dose: Total exam DLP = 1499.68 mGy-cm. FINDINGS: HEMORRHAGE: No intracranial hemorrhage. BRAIN: No mass effect or edema. No atrophy or chronic microvascular ischemic changes. VENTRICLES: Unremarkable. No hydrocephalus. CALVARIUM: Unremarkable. PARANASAL SINUSES: Interval resolving of the previously seen right maxilla sinus mucosal thickening. MASTOID AIR CELLS: Unremarkable as visualized. No inflammatory changes. OTHER FINDINGS: None. IMPRESSION: No evidence of acute intracranial hemorrhage intracranial collection mass effect or midline shift. No significant interval change in the brain since the previous exam. Interval resolving of the previously seen right maxillary sinus mucosal thickening.
--- NOTE | 2016-09-09 12:15 | CP.PCM.PN ---
Subjective - Date & Time of Evaluation Date of Evaluation: 09/09/16 Time of Evaluation: 09:00 - Subjective Subjective: Seen in MICU this am. Still on ventilator support. 24 hours event noted- had code blue yesterday due to V atch and V fib but with successful ACLS resuscitation. Trach cultures are growing yeast and has new infiltrate in upper lobe on CXR. LFT are same. Objective - Vital Signs/Intake and Output Vital Signs (last 24 hours): Temp Pulse Resp BP Pulse Ox 101.1 F H 90 14 122/82 99 09/09/16 08:00 09/09/16 10:00 09/09/16 10:00 09/09/16 10:00 09/09/16 10:00 Intake and Output: 09/09/16 09/09/16 06:59 18:59 Intake Total 1675 450 Balance 1675 450 - Medications Medications: Current Medications Acetaminophen (Tylenol 325mg Tab) 650 mg PO Q4 PRN PRN Reason: Fever >100.4 F Last Admin: 09/09/16 09:55 Dose: 650 mg Carvedilol (Coreg) 12.5 mg PO Q12 [facility] Last Admin: 09/09/16 09:47 Dose: 12.5 mg Folic Acid (Folic Acid) 1 mg PO DAILY [facility] Last Admin: 09/09/16 09:49 Dose: 1 mg Vancomycin HCl 750 mg/ Sodium (Chloride) 250 mls @ 166.667 mls/hr IVPB Q12 [facility] Last Admin: 09/09/16 09:52 Dose: 166.667 mls/hr Levetiracetam 500 mg/ Sodium (Chloride) 105 mls @ 210 mls/hr IVPB Q12 [facility] Last Admin: 09/09/16 09:49 Dose: 210 mls/hr Lidocaine HCl/Dextrose (Lidocaine 2 Grams In D5w) 500 mls @ 30 mls/hr IV .[id number] [facility]; 2 MG/MIN PRN Reason: Protocol Last Admin: 09/09/16 09:58 Dose: 30 mls/hr Dextrose/Sodium Chloride (Dextrose 5%/0.45% Ns 1000 Ml) 1,000 mls @ 100 mls/hr IV .Q10H [facility] Last Admin: 09/09/16 00:05 Dose: 100 mls/hr Amiodarone HCl 450 mg/ (Dextrose) 259 mls @ 34.53 mls/hr IVPB .Q7H31M [facility]; 1 MG /MIN PRN Reason: Protocol Norepinephrine Bitartrate 4 mg (/ Dextrose) 254 mls @ 9.52 mls/hr IV .Q24H [facility] ; 2.5 MCG/MIN PRN Reason: Protocol Insulin Human Regular (Humulin R) 0 units SC ACCU-CHECK [facility] PRN Reason: Protocol Last Admin: 09/09/16 07:39 Dose: Not Given Lactulose (Enulose) 20 gm PO BID [facility] Last Admin: 09/09/16 09:49 Dose: 20 gm Lorazepam (Ativan) 1 mg IVP Q4H PRN PRN Reason: agitation/anxiety on vent Last Admin: 09/08/16 08:00 Dose: 1 mg Multivitamins/Minerals (Therapeutic-M Tab) 1 tab PO DAILY [facility] Last Admin: 09/09/16 09:51 Dose: 1 tab Pantoprazole Sodium (Protonix Inj) 40 mg IVP DAILY [facility] Last Admin: 09/09/16 09:51 Dose: 40 mg Rifaximin (Xifaxan) 550 mg PO BID [facility] Last Admin: 09/09/16 09:52 Dose: 550 mg Spironolactone (Aldactone) 50 mg PO DAILY [facility] Last Admin: 09/09/16 09:47 Dose: 50 mg Thiamine HCl (Vitamin B1 Tab) 100 mg PO DAILY [facility] Last Admin: 09/09/16 09:52 Dose: 100 mg - Labs Labs: 09/09/16 04:30 09/09/16 04:30 PT 13.9 SECONDS (9.6-11.2) H 09/06/16 04:25 INR 1.34 (0.92-1.08) H 09/06/16 04:25 APTT 24.3 SECONDS (23.3-32.5) 09/06/16 04:25 - Head Exam Additional comments: Intubated Responsive to touch Opens eyes Coarse breath sounds. Ronchi + RRR. S1 S2 normal Distended. Soft. Minimal ascites. Hernia + LE- edema + Assessment and Plan - Assessment and Plan (Free Text) Assessment: 51 year old male with h/o DM, HTN, EtOH abuse/cirrhosis who presented to the ED following a seizure, suspected 2/2 alcohol withdrawal now intubated for airway protection/respiratory failure s/p successful ACLS code blue yesterday after electrolyte imbalance. Plan: - Supportive care -No indication to start steroids for alc hep -Autoimmune/hepatitis serologies negative -Continue Lactulose 20gm PO BID, titrate to 1-2BM/day through NGT - Yesterday and today no bowel movements - Repeat electrolytes aggressively -Continue Xifaxan 550mg PO BID -ascites is small amount, not enough to tap -LFTs are downtrending - Will require CT abdomen triple phase to rule out HCC when awake - Will require EGD for variceal screening when awake- can be done outpatient - H/Hct stable -continue rest of care per ICU
[2016-09-09] MEDS: Amiodarone 900 MG in Dextrose 5% In Water 500 ML IVPB SCH (12:16)
[2016-09-09 12:50] LABS: ABG ALLEN TEST YES; ABG MECHANICAL RATE 12; ARTERIAL BLOOD GAS HCO3 31.4 mmol/L (21-28); ARTERIAL BLOOD GAS MODE PRVC/AC; ARTERIAL BLOOD GAS O2 CAPACITY 18.4 mL/dL (16-24); ARTERIAL BLOOD GAS PH 7.52 (7.35-7.45); ARTERIAL BLOOD GAS PO2 81 mm/Hg (80-100); ARTERIAL BLOOD HGB O2 SAT 95.4 % (95.0-98.0); ATERIAL BLOOD GAS PEEP 5; CARBOXYHEMOGLOBIN 1.6 % (0.5-1.5)
[2016-09-09] MEDS ORDERED: Fluconazole IV 400mg/200ml NS 200 ML IVPB ONE (15:00)
[2016-09-09] MEDS ORDERED: Sodium Chloride 3% for Inhalation 4 ML VIAL.NEB IH PRN (16:42)
--- NOTE | 2016-09-09 18:16 | CP.PCM.PN ---
Subjective - Date & Time of Evaluation Date of Evaluation: 09/09/16 Time of Evaluation: 15:15 - Subjective Subjective: SEEN ON RENAL F/U IN ICU REMAINS INTUBATED .. UNRESPONSIVE .. IN NAD ALL PREVIOUS EMR REVIEWED CREAT IMPROVED FROM 2.0 TO 1,6 ON D5 1/2 AT 100 CC/H Objective - Vital Signs/Intake and Output Vital Signs (last 24 hours): Temp Pulse Resp BP Pulse Ox 100.1 F H 65 21 83/58 L 100 09/09/16 16:00 09/09/16 18:00 09/09/16 18:00 09/09/16 18:00 09/09/16 18:00 Intake and Output: 09/09/16 09/09/16 06:59 18:59 Intake Total 1675 3026 Output Total 500 Balance 1675 3186 - Medications Medications: Current Medications Acetaminophen (Tylenol 325mg Tab) 650 mg PO Q4 PRN PRN Reason: Fever >100.4 F Last Admin: 09/09/16 09:55 Dose: 650 mg Amiodarone HCl (Cordarone) 200 mg PO Q12H [facility] Last Admin: 09/09/16 13:38 Dose: 200 mg Carvedilol (Coreg) 12.5 mg PO Q12 [facility] Last Admin: 09/09/16 09:47 Dose: 12.5 mg Folic Acid (Folic Acid) 1 mg PO DAILY [facility] Last Admin: 09/09/16 09:49 Dose: 1 mg Vancomycin HCl 750 mg/ Sodium (Chloride) 250 mls @ 166.667 mls/hr IVPB Q12 [facility] Last Admin: 09/09/16 09:52 Dose: 166.667 mls/hr Levetiracetam 500 mg/ Sodium (Chloride) 105 mls @ 210 mls/hr IVPB Q12 [facility] Last Admin: 09/09/16 09:49 Dose: 210 mls/hr Lidocaine HCl/Dextrose (Lidocaine 2 Grams In D5w) 500 mls @ 30 mls/hr IV .[id number] [facility]; 2 MG/MIN PRN Reason: Protocol Last Admin: 09/09/16 09:58 Dose: 30 mls/hr Dextrose/Sodium Chloride (Dextrose 5%/0.45% Ns 1000 Ml) 1,000 mls @ 100 mls/hr IV .Q10H [facility] Last Admin: 09/09/16 15:34 Dose: 100 mls/hr Norepinephrine Bitartrate 4 mg (/ Dextrose) 254 mls @ 9.52 mls/hr IV .Q24H [facility] ; 2.5 MCG/MIN PRN Reason: Protocol Last Titration: 09/09/16 18:06 Dose: 12.5 mcg/min Fluconazole (Diflucan Iv 200 Mg/100 Ml Ns) 100 mls @ 100 mls/hr IVPB DAILY [facility] Insulin Human Regular (Humulin R) 0 units SC ACCU-CHECK [facility] PRN Reason: Protocol Last Admin: 09/09/16 17:14 Dose: 6 units Lactulose (Enulose) 20 gm PO BID [facility] Last Admin: 09/09/16 16:44 Dose: 20 gm Lorazepam (Ativan) 1 mg IVP Q4H PRN PRN Reason: agitation/anxiety on vent Last Admin: 09/08/16 08:00 Dose: 1 mg Multivitamins/Minerals (Therapeutic-M Tab) 1 tab PO DAILY [facility] Last Admin: 09/09/16 09:51 Dose: 1 tab Pantoprazole Sodium (Protonix Inj) 40 mg IVP DAILY [facility] Last Admin: 09/09/16 09:51 Dose: 40 mg Rifaximin (Xifaxan) 550 mg PO BID [facility] Last Admin: 09/09/16 16:44 Dose: 550 mg Spironolactone (Aldactone) 50 mg PO DAILY [facility] Last Admin: 09/09/16 09:47 Dose: 50 mg Thiamine HCl (Vitamin B1 Tab) 100 mg PO DAILY [facility] Last Admin: 09/09/16 09:52 Dose: 100 mg - Labs Labs: 09/09/16 04:30 09/09/16 04:30 PT 13.9 SECONDS (9.6-11.2) H 09/06/16 04:25 INR 1.34 (0.92-1.08) H 09/06/16 04:25 APTT 24.3 SECONDS (23.3-32.5) 09/06/16 04:25 Assessment and Plan - Assessment and Plan (Free Text) Assessment: NONA .. RENAL FUNCTION STARTED IMPROVING ELECTROLUTES BETTER VDRF MULTIPLE CO MORBIDITIES P : C/O CURRENT FLUID C/O CURRENT MANAGEMENT
[2016-09-10] MEDS: Acetaminophen 650mg/20.3ml solution UD PO PRN ×2 (03:04→15:51)
[2016-09-10 05:50] LABS: ABG ALLEN TEST YES; ABG MECHANICAL RATE 12; ARTERIAL BLOOD GAS HCO3 28.6 mmol/L (21-28); ARTERIAL BLOOD GAS MODE A/C; ARTERIAL BLOOD GAS O2 CAPACITY 16.4 mL/dL (16-24); ARTERIAL BLOOD GAS O2 CONTENT 16.1 ML/dL (15-23); ARTERIAL BLOOD GAS PH 7.49 (7.35-7.45); ARTERIAL BLOOD GAS PO2 90 mm/Hg (80-100); ARTERIAL BLOOD HGB O2 SAT 95.7 % (95.0-98.0); ATERIAL BLOOD GAS PEEP 5; CARBOXYHEMOGLOBIN 1.4 % (0.5-1.5); HHB 1.6 % (0.0-5.0); METHEMOGLOBIN 1.3 % (0.0-3.0)
[2016-09-10] MEDS: Dextrose 5%/0.45% NS 1,000 ML IV SCH (06:04)
[2016-09-10] MEDS: Insulin Regular 100 units/ml SC SCH ×4 (06:05→23:07)
[2016-09-10 07:13] LABS: HEMATOCRIT 36.7 % (35.0-51.0); MEAN CELL VOLUME 95.4 fl (80.0-94.0); MEAN CORPUSCULAR HEMOGLOBIN 30.6 pg (27.0-31.0); MEAN CORPUSCULAR HGB CONC 32.1 g/dL (33.0-37.0); RED CELL DISTRIBUTION WIDTH 15.1 % (11.5-14.5); WHITE BLOOD COUNT 8.8 K/uL (4.8-10.8)
[2016-09-10 07:28] LABS: ALB/GLOB RATIO 0.7 (1.0-2.1); BILIRUBIN,TOTAL 1.3 mg/dl (0.2-1.3); CALCIUM 7.4 mg/dL (8.4-10.2); POTASSIUM 3.8 MMOL/L (3.6-5.0)
[2016-09-10] MEDS: levETIRAcetam 500 MG in Sodium Chloride 0.9% 100 ML IVPB SCH ×3 (08:24→22:22)
[2016-09-10] MEDS: Multivitamin With Minerals Tab PO SCH (08:26)
[2016-09-10] MEDS: Lidocaine 2 Grams in D5W 500 ML IV SCH (08:27)
[2016-09-10] MEDS: Fluconazole IV 200mg/100 ml NS 100 ML IVPB SCH (09:10)
--- NOTE | 2016-09-10 09:29 | RAD ---
HISTORY: vented COMPARISON: 09/09/2016 FINDINGS: LUNGS: No active pulmonary disease. PLEURA: No significant pleural effusion identified, no pneumothorax apparent. CARDIOVASCULAR: Normal. OSSEOUS STRUCTURES: No significant abnormalities. VISUALIZED UPPER ABDOMEN: Normal. OTHER FINDINGS: ETT above the maxwell. NG tube in the stomach. IMPRESSION: No active disease.
--- NOTE | 2016-09-10 12:25 | CP.PCM.PN ---
Subjective - Date & Time of Evaluation Date of Evaluation: 09/10/16 Time of Evaluation: 12:25 - Subjective Subjective: Seen on rounds in ICU. Remains orally intubated and mechanically ventilated. CXR :cardiomegaly and bibasal hazy density suggesting effusions and atelectasis/ infiltrates. Afebrile, well oxygenated. Labs noted with Hgb 11.8GM, platelets 69. Mildly alkalemic, good O2/CO2. Sputum reported as 'yeast species'. Opens eyes periodically, does not focus or follow. Does not follow any commands. Neck is supple and trachea midline. No subcut emphysema palpable, no dullness on percussion. Breath sounds are present bilaterally, diminished, especially in bases. Scattered sonorous rhonchi, no audible wheezes. Few dry rales posteriorly, no bronchial breath sounds heard today. Heart sounds are well heard, regular. Continue ventilatory support and wean when more alert and off pressors.. Medical regimen remains unchanged. Objective - Vital Signs/Intake and Output Vital Signs (last 24 hours): Temp Pulse Resp BP Pulse Ox 98.7 F 68 23 95/61 L 99 09/10/16 12:06 09/10/16 12:06 09/10/16 12:06 09/10/16 12:06 09/10/16 12:06 Intake and Output: 09/10/16 09/10/16 11:59 23:59 Intake Total 2425 460 Output Total 400 Balance 2024 460 - Medications Medications: Current Medications Acetaminophen (Tylenol 650mg/20.3ml Solution Ud) 650 mg PO Q6 PRN PRN Reason: Fever >100.4 F Last Admin: 09/10/16 03:04 Dose: 650 mg Amiodarone HCl (Cordarone) 200 mg PO Q12H [facility] Last Admin: 09/10/16 11:17 Dose: 200 mg Carvedilol (Coreg) 12.5 mg PO Q12 [facility] Last Admin: 09/10/16 08:59 Dose: Not Given Folic Acid (Folic Acid) 1 mg PO DAILY [facility] Last Admin: 09/10/16 08:26 Dose: 1 mg Levetiracetam 500 mg/ Sodium (Chloride) 105 mls @ 210 mls/hr IVPB Q12 [facility] Last Admin: 09/10/16 08:24 Dose: 210 mls/hr Dextrose/Sodium Chloride (Dextrose 5%/0.45% Ns 1000 Ml) 1,000 mls @ 100 mls/hr IV .Q10H [facility] Last Admin: 09/10/16 06:04 Dose: 100 mls/hr Norepinephrine Bitartrate 4 mg (/ Dextrose) 254 mls @ 9.52 mls/hr IV .Q24H [facility] ; 2.5 MCG/MIN PRN Reason: Protocol Last Admin: 09/10/16 11:11 Dose: 18.8 mls/hr Fluconazole (Diflucan Iv 200 Mg/100 Ml Ns) 100 mls @ 100 mls/hr IVPB DAILY [facility] Last Admin: 09/10/16 09:10 Dose: 100 mls/hr Lidocaine HCl/Dextrose (Lidocaine 2 Grams In D5w) 500 mls @ 15 mls/hr IV .Q24H [facility] PRN Reason: 1 MG/MIN Last Admin: 09/10/16 08:27 Dose: 15 mls/hr Insulin Human Regular (Humulin R) 0 units SC ACCU-CHECK [facility] PRN Reason: Protocol Last Admin: 09/10/16 11:15 Dose: 4 units Lactulose (Enulose) 20 gm PO BID [facility] Last Admin: 09/09/16 16:44 Dose: 20 gm Lorazepam (Ativan) 1 mg IVP Q4H PRN PRN Reason: agitation/anxiety on vent Last Admin: 09/10/16 00:50 Dose: 1 mg Multivitamins/Minerals (Therapeutic-M Tab) 1 tab PO DAILY [facility] Last Admin: 09/10/16 08:26 Dose: 1 tab Pantoprazole Sodium (Protonix Inj) 40 mg IVP DAILY [facility] Last Admin: 09/10/16 08:25 Dose: 40 mg Rifaximin (Xifaxan) 550 mg PO BID [facility] Last Admin: 09/10/16 08:26 Dose: 550 mg Spironolactone (Aldactone) 50 mg PO DAILY [facility] Last Admin: 09/10/16 08:26 Dose: 50 mg Thiamine HCl (Vitamin B1 Tab) 100 mg PO DAILY [facility] Last Admin: 09/10/16 08:26 Dose: 100 mg - Labs Labs: 09/10/16 05:30 09/10/16 05:30 PT 13.9 SECONDS (9.6-11.2) H 09/06/16 04:25 INR 1.34 (0.92-1.08) H 09/06/16 04:25 APTT 24.3 SECONDS (23.3-32.5) 09/06/16 04:25 Assessment and Plan (1) Aspiration pneumonia Status: Acute (2) Acute respiratory failure with hypoxia and hypercapnia Status: Acute (3) Pleural effusion Status: Acute (4) Congestive cardiomyopathy Status: Chronic (5) Altered mental status Status: Acute
--- NOTE | 2016-09-10 13:02 | CP.PCM.PN ---
<Tiana June - Last Filed: 09/10/16 13:00> Subjective - Date & Time of Evaluation Date of Evaluation: 09/10/16 Time of Evaluation: 13:00 - Subjective Subjective: Gastroenterology Fellow/PGY4 Progress Note Patient remains intubated and agitated overnight per nursing. Lactulose provided via NG with four loose stools overnight. Patient opens eyes to verbal stimuli and follows command. A 12-point review of systems unable to be completed while intubated. Objective - Vital Signs/Intake and Output Vital Signs (last 24 hours): Temp Pulse Resp BP Pulse Ox 98.7 F 68 23 95/61 L 99 09/10/16 12:06 09/10/16 12:06 09/10/16 12:06 09/10/16 12:06 09/10/16 12:06 Intake and Output: 09/10/16 09/10/16 06:59 18:59 Intake Total 2180 1325 Output Total 400 Balance 1780 1325 - Medications Medications: Current Medications Acetaminophen (Tylenol 650mg/20.3ml Solution Ud) 650 mg PO Q6 PRN PRN Reason: Fever >100.4 F Last Admin: 09/10/16 03:04 Dose: 650 mg Amiodarone HCl (Cordarone) 200 mg PO Q12H [facility] Last Admin: 09/10/16 11:17 Dose: 200 mg Carvedilol (Coreg) 12.5 mg PO Q12 [facility] Last Admin: 09/10/16 08:59 Dose: Not Given Folic Acid (Folic Acid) 1 mg PO DAILY [facility] Last Admin: 09/10/16 08:26 Dose: 1 mg Levetiracetam 500 mg/ Sodium (Chloride) 105 mls @ 210 mls/hr IVPB Q12 [facility] Last Admin: 09/10/16 08:24 Dose: 210 mls/hr Dextrose/Sodium Chloride (Dextrose 5%/0.45% Ns 1000 Ml) 1,000 mls @ 100 mls/hr IV .Q10H [facility] Last Admin: 09/10/16 06:04 Dose: 100 mls/hr Norepinephrine Bitartrate 4 mg (/ Dextrose) 254 mls @ 9.52 mls/hr IV .Q24H [facility] ; 2.5 MCG/MIN PRN Reason: Protocol Last Admin: 09/10/16 11:11 Dose: 18.8 mls/hr Fluconazole (Diflucan Iv 200 Mg/100 Ml Ns) 100 mls @ 100 mls/hr IVPB DAILY [facility] Last Admin: 09/10/16 09:10 Dose: 100 mls/hr Lidocaine HCl/Dextrose (Lidocaine 2 Grams In D5w) 500 mls @ 15 mls/hr IV .Q24H [facility] PRN Reason: 1 MG/MIN Last Admin: 09/10/16 08:27 Dose: 15 mls/hr Insulin Human Regular (Humulin R) 0 units SC ACCU-CHECK [facility] PRN Reason: Protocol Last Admin: 09/10/16 11:15 Dose: 4 units Lactulose (Enulose) 20 gm PO BID [facility] Last Admin: 09/09/16 16:44 Dose: 20 gm Lorazepam (Ativan) 1 mg IVP Q4H PRN PRN Reason: agitation/anxiety on vent Last Admin: 09/10/16 00:50 Dose: 1 mg Multivitamins/Minerals (Therapeutic-M Tab) 1 tab PO DAILY [facility] Last Admin: 09/10/16 08:26 Dose: 1 tab Pantoprazole Sodium (Protonix Inj) 40 mg IVP DAILY [facility] Last Admin: 09/10/16 08:25 Dose: 40 mg Rifaximin (Xifaxan) 550 mg PO BID [facility] Last Admin: 09/10/16 08:26 Dose: 550 mg Spironolactone (Aldactone) 50 mg PO DAILY [facility] Last Admin: 09/10/16 08:26 Dose: 50 mg Thiamine HCl (Vitamin B1 Tab) 100 mg PO DAILY [facility] Last Admin: 09/10/16 08:26 Dose: 100 mg - Labs Labs: 09/10/16 05:30 09/10/16 05:30 PT 13.9 SECONDS (9.6-11.2) H 09/06/16 04:25 INR 1.34 (0.92-1.08) H 09/06/16 04:25 APTT 24.3 SECONDS (23.3-32.5) 09/06/16 04:25 - Constitutional Appears: No Acute Distress, Chronically Ill - Head Exam Head Exam: ATRAUMATIC, NORMOCEPHALIC - Eye Exam Eye Exam: EOMI, PERRL Pupil Exam: PERRL. absent: Miosis, Mydriatic - ENT Exam ENT Exam: Mucous Membranes Moist, Normal Oropharynx Additional comments: ETT and NGT in place - Neck Exam Neck Exam: Full ROM, Normal Inspection - Respiratory Exam Respiratory Exam: Clear to Ausculation Bilateral. absent: Rales, Wheezes, Stridor - Cardiovascular Exam Cardiovascular Exam: RRR, +S1, +S2. absent: Gallop, Rubs - GI/Abdominal Exam GI & Abdominal Exam: Soft, Normal Bowel Sounds. absent: Distended, Firm, Guarding, Rigid, Tenderness, Organomegaly, Rebound - Extremities Exam Extremities Exam: Pedal Edema - Neurological Exam Additional comments: opens eyes to verbal stimuli - Skin Skin Exam: Dry, Intact, Normal Color, Warm Assessment and Plan - Assessment and Plan (Free Text) Assessment: 51 year old male with history of Hypertension, Diabetes, active Alcohol Abuse, and Alcoholic cirrhosis presenting with seizure likely secondary to alcohol withdrawal. Active treatment of ventilator dependent respiratory failure for airway protection and Vtach/Vfib arrest with ROSC on 09/08. Noted to have ischemic cardiomyopathy 15% on ECHO. No prior EGD or colonoscopy. Plan: >continue Lactulose 20gm NG BID, titrate to 2-3 BMs per day >continue Rifaxamin 550mg NG BID >monitor renal function >monitor LFTs- multifactorial -Alcohol abuse, cirrhosis, Cardiomyopathy, renal insufficiency, recent ACLS >MELD- ordered PT/INR >daily LFTs, PT/INR >strict I&Os >will make further recommendations based on clinical course <Crystal Collazo - Last Filed: 09/10/16 13:42> Objective - Vital Signs/Intake and Output Vital Signs (last 24 hours): Temp Pulse Resp BP Pulse Ox 98.7 F 68 23 95/61 L 99 09/10/16 12:06 09/10/16 12:06 09/10/16 12:06 09/10/16 12:06 09/10/16 12:06 Intake and Output: 09/10/16 09/10/16 06:59 18:59 Intake Total 2180 1325 Output Total 400 Balance 1780 1325 - Medications Medications: Current Medications Acetaminophen (Tylenol 650mg/20.3ml Solution Ud) 650 mg PO Q6 PRN PRN Reason: Fever >100.4 F Last Admin: 09/10/16 03:04 Dose: 650 mg Amiodarone HCl (Cordarone) 200 mg PO Q12H [facility] Last Admin: 09/10/16 11:17 Dose: 200 mg Carvedilol (Coreg) 12.5 mg PO Q12 [facility] Last Admin: 09/10/16 08:59 Dose: Not Given Folic Acid (Folic Acid) 1 mg PO DAILY [facility] Last Admin: 09/10/16 08:26 Dose: 1 mg Levetiracetam 500 mg/ Sodium (Chloride) 105 mls @ 210 mls/hr IVPB Q12 [facility] Last Admin: 09/10/16 08:24 Dose: 210 mls/hr Dextrose/Sodium Chloride (Dextrose 5%/0.45% Ns 1000 Ml) 1,000 mls @ 100 mls/hr IV .Q10H [facility] Last Admin: 09/10/16 06:04 Dose: 100 mls/hr Norepinephrine Bitartrate 4 mg (/ Dextrose) 254 mls @ 9.52 mls/hr IV .Q24H [facility] ; 2.5 MCG/MIN PRN Reason: Protocol Last Admin: 09/10/16 11:11 Dose: 18.8 mls/hr Fluconazole (Diflucan Iv 200 Mg/100 Ml Ns) 100 mls @ 100 mls/hr IVPB DAILY [facility] Last Admin: 09/10/16 09:10 Dose: 100 mls/hr Lidocaine HCl/Dextrose (Lidocaine 2 Grams In D5w) 500 mls @ 15 mls/hr IV .Q24H [facility] PRN Reason: 1 MG/MIN Last Admin: 09/10/16 08:27 Dose: 15 mls/hr Insulin Human Regular (Humulin R) 0 units SC ACCU-CHECK [facility] PRN Reason: Protocol Last Admin: 09/10/16 11:15 Dose: 4 units Lactulose (Enulose) 20 gm PO BID [facility] Last Admin: 09/09/16 16:44 Dose: 20 gm Lorazepam (Ativan) 1 mg IVP Q4H PRN PRN Reason: agitation/anxiety on vent Last Admin: 09/10/16 00:50 Dose: 1 mg Multivitamins/Minerals (Therapeutic-M Tab) 1 tab PO DAILY [facility] Last Admin: 09/10/16 08:26 Dose: 1 tab Pantoprazole Sodium (Protonix Inj) 40 mg IVP DAILY [facility] Last Admin: 09/10/16 08:25 Dose: 40 mg Rifaximin (Xifaxan) 550 mg PO BID [facility] Last Admin: 09/10/16 08:26 Dose: 550 mg Spironolactone (Aldactone) 50 mg PO DAILY [facility] Last Admin: 09/10/16 08:26 Dose: 50 mg Thiamine HCl (Vitamin B1 Tab) 100 mg PO DAILY [facility] Last Admin: 09/10/16 08:26 Dose: 100 mg - Labs Labs: 09/10/16 05:30 09/10/16 05:30 PT 13.9 SECONDS (9.6-11.2) H 09/06/16 04:25 INR 1.34 (0.92-1.08) H 09/06/16 04:25 APTT 24.3 SECONDS (23.3-32.5) 09/06/16 04:25 Attending/Attestation - Attestation I have personally seen and examined this patient.: Yes I have fully participated in the care of the patient.: Yes I have reviewed all pertinent clinical information, including history, physical exam and plan: Yes Notes (Text): Patient seen and examined with GI fellow. Agree with her note as documented above with the following additions/exceptions. This is a 51 year old male with h/o ETOH cirrhosis, HTN, DM who is admitted with ETOH withdrawal complicated by seizure, VT arrest now intubated in ICU. He has dilated cardiomyopathy (EF 15%) . Labs today notable for worsening Cr. His T bili is improved. He is getting lactulose via OGT and having subsequent BM. Follow MELD labs (obtain repeat INR ), T bili downtrending. Continue lactulose/rifaximin. Monitor Cr closely, possibly NONA/renal hypoperfusion related to code. Monitor H/H. Further management as per ICU. 09/10/16 13:36
[2016-09-10] MEDS ORDERED: Chlorhexidine Gluconate 1 APPL/PKT TP ONE (14:00)
--- NOTE | 2016-09-10 14:13 | PN ---
DATE: 09/10/2016 LOCATION: The patient in ICU, bed 424. TIME SPENT: 35 minutes. Seen and evaluated at the bedside. A 51-year-old male admitted on 08/30 status post seizure related t o alcohol withdrawal, subsequently developed aspiration pneumonia. Noted to have alcohol related car diomyopathy with a very low EF, developed V. tachycardia or V. fibrillation, status post defibrillato r shock, intubated, placed on mechanical ventilation, overnight on AC/PRVC 12, tidal volume of 450, F IO2 50%, PEEP 5. Exhaled observed rate 20. Exhaled tidal volume 530, minute ventilations 9.1 liters , peak airway pressure 27, not sedated, responsive, follows around the room with his eyes. PHYSICAL EXAMINATION: VITAL SIGNS: Temperature 98.7, heart rate 68, blood pressure 95/61 on Levophed, saturating 99%. Int ruthy 5206, output 900, positive 4306. Weight 215 pounds. HEENT: Pupils reactive. Conjunctivae pink. Sclerae white. NECK: Supple. Endotracheal tube in place. No secretion noted. Trachea midline. CHEST: Bilateral breath sounds. Clear to auscultation anteriorly and laterally. HEART: Rhythm regular. S1, S2 normal. No audible murmur. ABDOMEN: Bowel sounds present, soft. EXTREMITIES: With trace dependent edema. NEUROLOGIC: Opens eyes and appears following the examiner. Does not follow commands appropriately. CURRENT MEDICATIONS: Tylenol 650 q. 6 p.r.n., amiodarone 200 mg p.o. q. 12 hours, Coreg 12.5 mg q. 12, fluconazole 200 mg IV daily, Accu-Chek with regular insulin coverage, folic acid 1 mg daily, lac tulose 20 grams p.o. twice daily, Keppra 500 mg IV q. 12, lorazepam 1 mg IV q. 4 p.r.n., multivitami n 1 tablet daily, Levophed 4 mg at 2.5 mcg per minute, Protonix 40 IV daily, rifaximin 550 mg twice d aily, spironolactone 50 mg daily, thiamine 100 mg daily. LABORATORY DATA: WBC 8.8, hemoglobin 11.8, hematocrit 36.7, platelet count 69. ABG: pH 7.49, pCO2 of 37, pO2 90, saturating 98.4% on AC 12, 450, FiO2 50, PEEP 5. SMA-7: Sodium 138, potassium 3.8, c hloride 96, CO2 29, blood urea nitrogen 45, creatinine 2.4. Random glucose 322, calcium 7.4, total b ilirubin 1.3, AST 195, ALT 125, alkaline phosphatase 179, total protein 6, albumin 2.4. Urinalysis i s negative. Hepatitis A, B and C negative. IMPRESSION: 1. Acute respiratory failure with hypoxia and hypercapnia. 2. Aspiration pneumonia, 3. Bilateral pleural effusion. 4. Dilated cardiomyopathy, probably related to ETOH dependence, rule out ischemia, status post ventr icular fibrillation and ventricular tachycardia, status post defibrillation. 5. Change in the mental status related to septic metabolic encephalopathy, rule out anoxic and/or al cohol related central nervous system change. 6. History of seizure, probably related to ETOH. PLAN: To wean as tolerated. Continue current medications. Head of bed at 40 degrees up, DVT and GI prophylaxis. May need ICD given a low EF and the event of V fib and V tachycardia noted. Antibioti c as per ID for aspiration pneumonia. Continue multivitamin, folic acid for ETOH dependence/withdraw al. Continue amiodarone, Coreg. Monitor for further recurrence of cardiac arrhythmia. Lance Jones MD cc: [id number] TT: 09/10/2016 14:12:42 Confirmation # [id number] Dictation # [id number] jn
--- NOTE | 2016-09-10 14:49 | CP.PCM.PN ---
Subjective - Date & Time of Evaluation Date of Evaluation: 09/10/16 Time of Evaluation: 14:48 - Subjective Subjective: ID NOTE HAVE ADDED TEFLARO IN ADJUSTED (RENAL) FOR ADDITIONAL ANTIBIOTIC COVERAGE Objective - Vital Signs/Intake and Output Vital Signs (last 24 hours): Temp Pulse Resp BP Pulse Ox 98.7 F 73 22 94/69 L 99 09/10/16 12:06 09/10/16 14:00 09/10/16 14:00 09/10/16 14:00 09/10/16 14:00 Intake and Output: 09/10/16 09/10/16 06:59 18:59 Intake Total 2180 1635 Output Total 400 Balance 1780 1635 - Medications Medications: Current Medications Acetaminophen (Tylenol 650mg/20.3ml Solution Ud) 650 mg PO Q6 PRN PRN Reason: Fever >100.4 F Last Admin: 09/10/16 03:04 Dose: 650 mg Amiodarone HCl (Cordarone) 200 mg PO Q12H [facility] Last Admin: 09/10/16 11:17 Dose: 200 mg Carvedilol (Coreg) 12.5 mg PO Q12 [facility] Last Admin: 09/10/16 08:59 Dose: Not Given Folic Acid (Folic Acid) 1 mg PO DAILY [facility] Last Admin: 09/10/16 08:26 Dose: 1 mg Levetiracetam 500 mg/ Sodium (Chloride) 105 mls @ 210 mls/hr IVPB Q12 [facility] Last Admin: 09/10/16 08:24 Dose: 210 mls/hr Dextrose/Sodium Chloride (Dextrose 5%/0.45% Ns 1000 Ml) 1,000 mls @ 100 mls/hr IV .Q10H [facility] Last Admin: 09/10/16 06:04 Dose: 100 mls/hr Norepinephrine Bitartrate 4 mg (/ Dextrose) 254 mls @ 9.52 mls/hr IV .Q24H [facility] ; 2.5 MCG/MIN PRN Reason: Protocol Last Admin: 09/10/16 11:11 Dose: 18.8 mls/hr Fluconazole (Diflucan Iv 200 Mg/100 Ml Ns) 100 mls @ 100 mls/hr IVPB DAILY [facility] Last Admin: 09/10/16 09:10 Dose: 100 mls/hr Lidocaine HCl/Dextrose (Lidocaine 2 Grams In D5w) 500 mls @ 15 mls/hr IV .Q24H [facility] PRN Reason: 1 MG/MIN Last Admin: 09/10/16 08:27 Dose: 15 mls/hr Insulin Human Regular (Humulin R) 0 units SC ACCU-CHECK [facility] PRN Reason: Protocol Last Admin: 09/10/16 11:15 Dose: 4 units Lactulose (Enulose) 20 gm PO BID [facility] Last Admin: 09/09/16 16:44 Dose: 20 gm Lorazepam (Ativan) 1 mg IVP Q4H PRN PRN Reason: agitation/anxiety on vent Last Admin: 09/10/16 00:50 Dose: 1 mg Multivitamins/Minerals (Therapeutic-M Tab) 1 tab PO DAILY [facility] Last Admin: 09/10/16 08:26 Dose: 1 tab Pantoprazole Sodium (Protonix Inj) 40 mg IVP DAILY [facility] Last Admin: 09/10/16 08:25 Dose: 40 mg Rifaximin (Xifaxan) 550 mg PO BID [facility] Last Admin: 09/10/16 08:26 Dose: 550 mg Spironolactone (Aldactone) 50 mg PO DAILY [facility] Last Admin: 09/10/16 08:26 Dose: 50 mg Thiamine HCl (Vitamin B1 Tab) 100 mg PO DAILY [facility] Last Admin: 09/10/16 08:26 Dose: 100 mg - Labs Labs: 09/10/16 05:30 09/10/16 05:30 PT 13.9 SECONDS (9.6-11.2) H 09/06/16 04:25 INR 1.34 (0.92-1.08) H 09/06/16 04:25 APTT 24.3 SECONDS (23.3-32.5) 09/06/16 04:25
--- NOTE | 2016-09-10 20:44 | CP.PCM.PN ---
Subjective - Date & Time of Evaluation Date of Evaluation: 09/10/16 Time of Evaluation: 20:42 - Subjective Subjective: chart rev, lab rev,, case discussed w staff pt seen and examined creat rising 2.3....2.0.....1.9< if higher suggest increasing the iv rate as cardiomyopathy allows. Prog guarded. Objective - Vital Signs/Intake and Output Vital Signs (last 24 hours): Temp Pulse Resp BP Pulse Ox 98.9 F 69 19 100/76 100 09/10/16 20:00 09/10/16 20:00 09/10/16 20:00 09/10/16 20:00 09/10/16 20:00 Intake and Output: 09/10/16 09/11/16 18:59 06:59 Intake Total 2405 340 Output Total 1100 Balance 1305 340 - Medications Medications: Current Medications Acetaminophen (Tylenol 650mg/20.3ml Solution Ud) 650 mg PO Q6 PRN PRN Reason: Fever >100.4 F Last Admin: 09/10/16 15:51 Dose: 650 mg Amiodarone HCl (Cordarone) 200 mg PO Q12H [facility] Last Admin: 09/10/16 11:17 Dose: 200 mg Carvedilol (Coreg) 12.5 mg PO Q12 [facility] Last Admin: 09/10/16 08:59 Dose: Not Given Folic Acid (Folic Acid) 1 mg PO DAILY [facility] Last Admin: 09/10/16 08:26 Dose: 1 mg Levetiracetam 500 mg/ Sodium (Chloride) 105 mls @ 210 mls/hr IVPB Q12 [facility] Last Admin: 09/10/16 08:24 Dose: 210 mls/hr Dextrose/Sodium Chloride (Dextrose 5%/0.45% Ns 1000 Ml) 1,000 mls @ 100 mls/hr IV .Q10H [facility] Last Admin: 09/10/16 06:04 Dose: 100 mls/hr Norepinephrine Bitartrate 4 mg (/ Dextrose) 254 mls @ 9.52 mls/hr IV .Q24H [facility] ; 2.5 MCG/MIN PRN Reason: Protocol Last Admin: 09/10/16 11:11 Dose: 18.8 mls/hr Fluconazole (Diflucan Iv 200 Mg/100 Ml Ns) 100 mls @ 100 mls/hr IVPB DAILY [facility] Last Admin: 09/10/16 09:10 Dose: 100 mls/hr Lidocaine HCl/Dextrose (Lidocaine 2 Grams In D5w) 500 mls @ 15 mls/hr IV .Q24H [facility] PRN Reason: 1 MG/MIN Last Admin: 09/10/16 08:27 Dose: 15 mls/hr Ceftaroline Fosamil 200 mg/ (Sodium Chloride) 100 mls @ 100 mls/hr IVPB Q12 [facility] Insulin Human Regular (Humulin R) 0 units SC ACCU-CHECK [facility] PRN Reason: Protocol Last Admin: 09/10/16 16:24 Dose: 4 units Lactulose (Enulose) 20 gm PO BID [facility] Last Admin: 09/10/16 16:21 Dose: Not Given Lorazepam (Ativan) 1 mg IVP Q4H PRN PRN Reason: agitation/anxiety on vent Last Admin: 09/10/16 00:50 Dose: 1 mg Multivitamins/Minerals (Therapeutic-M Tab) 1 tab PO DAILY [facility] Last Admin: 09/10/16 08:26 Dose: 1 tab Pantoprazole Sodium (Protonix Inj) 40 mg IVP DAILY [facility] Last Admin: 09/10/16 08:25 Dose: 40 mg Rifaximin (Xifaxan) 550 mg PO BID [facility] Last Admin: 09/10/16 08:26 Dose: 550 mg Spironolactone (Aldactone) 50 mg PO DAILY [facility] Last Admin: 09/10/16 08:26 Dose: 50 mg Thiamine HCl (Vitamin B1 Tab) 100 mg PO DAILY [facility] Last Admin: 09/10/16 08:26 Dose: 100 mg - Labs Labs: 09/10/16 05:30 09/10/16 05:30 PT 13.9 SECONDS (9.6-11.2) H 09/06/16 04:25 INR 1.34 (0.92-1.08) H 09/06/16 04:25 APTT 24.3 SECONDS (23.3-32.5) 09/06/16 04:25 - Constitutional Appears: Toxic - Head Exam Head Exam: NORMAL INSPECTION - Eye Exam Eye Exam: Normal appearance - Neck Exam Neck Exam: Normal Inspection - Respiratory Exam Respiratory Exam: Rhonchi, Wheezes - Cardiovascular Exam Cardiovascular Exam: REGULAR RHYTHM - GI/Abdominal Exam GI & Abdominal Exam: Soft, Normal Bowel Sounds - Extremities Exam Extremities Exam: Normal Inspection - Neurological Exam Neurological Exam: Altered - Skin Skin Exam: Dry, Warm Additional comments: on vent Assessment and Plan - Assessment and Plan (Free Text) Assessment: arf may need more volume.
--- NOTE | 2016-09-10 22:50 | PN ---
DATE: 09/10/2016 The patient is seen today, 09/10/2016. He is still on ventilator and he did not need any sedation to day. Blood pressure 94/66, temperature 98.9, respiratory rate 17, and pulse is 64. NECK: No JVD, no carotid bruit, no lymph node, no thyromegaly. CHEST AND LUNGS: Bilateral symmetrical expansion. Few basilar rales. CARDIOVASCULAR: PMI not localized. S1, S2. No additional sounds. ABDOMEN: Decreased bowel sounds, no tenderness, no organomegaly, no masses. EXTREMITIES: No cyanosis, no clubbing, no edema. CENTRAL NERVOUS SYSTEM: The patient is on ventilator and he is lethargic, and he did not need any se dation. ASSESSMENT: 1. Respiratory failure on ventilator. Likely secondary to alcohol withdrawal seizure. 2. Dilated cardiomyopathy. 3. Status post cardiac resuscitation for ventricular fibrillation. 4. Aspiration pneumonia. PLAN: Continue current IV antibiotics. Continue with medical management as per pulmonary. Monitor electrolytes and continue seizure medications also. Guarded prognosis. Canelo Ellison MD cc: [phone] TT: 09/10/2016 22:49:34 Confirmation # [id number] Dictation # [id number]
[2016-09-11 06:29] LABS: ABG ALLEN TEST YES; ABG MECHANICAL RATE 12; ARTERIAL BLOOD GAS HCO3 26.5 mmol/L (21-28); ARTERIAL BLOOD GAS MODE A/C; ARTERIAL BLOOD GAS O2 CAPACITY 19.1 mL/dL (16-24); ARTERIAL BLOOD GAS PH 7.46 (7.35-7.45); ARTERIAL BLOOD GAS PO2 148 mm/Hg (80-100); ARTERIAL BLOOD HGB O2 SAT 97.2 % (95.0-98.0); ATERIAL BLOOD GAS PEEP 4; CARBOXYHEMOGLOBIN 1.6 % (0.5-1.5); HHB 0.3 % (0.0-5.0); METHEMOGLOBIN 0.9 % (0.0-3.0)
[2016-09-11] MEDS: Insulin Regular 100 units/ml SC SCH ×4 (06:38→22:02)
[2016-09-11] MEDS: Dextrose 5%/0.45% NS 1,000 ML IV SCH ×3 (06:41→19:42)
[2016-09-11 07:14] LABS: ALB/GLOB RATIO 0.6 (1.0-2.1); BILIRUBIN,TOTAL 1.3 mg/dl (0.2-1.3); CALCIUM 7.9 mg/dL (8.4-10.2); POTASSIUM 3.8 MMOL/L (3.6-5.0); TOTAL PROTEIN 7.1 G/DL (6.3-8.2)
[2016-09-11 07:38] LABS: HEMATOCRIT 39.9 % (35.0-51.0); MEAN CELL VOLUME 94.7 fl (80.0-94.0); MEAN CORPUSCULAR HEMOGLOBIN 30.9 pg (27.0-31.0); MEAN CORPUSCULAR HGB CONC 32.6 g/dL (33.0-37.0); WHITE BLOOD COUNT 11.7 K/uL (4.8-10.8)
--- NOTE | 2016-09-11 09:33 | RAD ---
PROCEDURE: CHEST RADIOGRAPH, 1 VIEW HISTORY: pneumonia/chf COMPARISON: 09/10/2016 FINDINGS: LUNGS: Clear. PLEURA: Bibasilar effusions CARDIOVASCULAR: Cardiomegaly. OSSEOUS STRUCTURES: No significant abnormalities. VISUALIZED UPPER ABDOMEN: Normal. OTHER FINDINGS: ETT above the trachea IMPRESSION: No significant interval change.
[2016-09-11] MEDS: Fluconazole IV 200mg/100 ml NS 100 ML IVPB SCH (09:41)
[2016-09-11] MEDS: levETIRAcetam 500 MG in Sodium Chloride 0.9% 100 ML IVPB SCH ×2 (09:42→20:01)
[2016-09-11] MEDS: Multivitamin With Minerals Tab PO SCH (09:44)
[2016-09-11 11:05] LABS: ABG ALLEN TEST YES; ARTERIAL BLOOD GAS HCO3 26.4 mmol/L (21-28); ARTERIAL BLOOD GAS MODE CPAP; ARTERIAL BLOOD GAS O2 CAPACITY 18.8 mL/dL (16-24); ARTERIAL BLOOD GAS O2 CONTENT 18.2 ML/dL (15-23); ARTERIAL BLOOD GAS PH 7.38 (7.35-7.45); ARTERIAL BLOOD GAS PO2 77 mm/Hg (80-100); ARTERIAL BLOOD HGB O2 SAT 94.4 % (95.0-98.0); ATERIAL BLOOD GAS PEEP 0; CARBOXYHEMOGLOBIN 1.6 % (0.5-1.5); HHB 3.1 % (0.0-5.0); METHEMOGLOBIN 0.9 % (0.0-3.0)
--- NOTE | 2016-09-11 13:03 | PN ---
DATE: 09/11/2016 CRITICAL CARE PROGRESS NOTE LOCATION: The patient in ICU, bed 424. TIME SPENT: 35 minutes. The patient is seen and evaluated at the bedside. Events since admission reviewed plus medical surgi letty, and social history noted and reviewed. 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 Remains intubated on mechanical ventilation on AC/MI VC 12, tidal volume 450, FiO2 50%, PEEP 5. No sedation. Overnight, no issues noted. PHYSICAL EXAMINATION: GENERAL: This morning, alert, awake, eyes open, follows commands appropriately. Denies headache. N o distress noted. VITAL SIGNS: Temperature 98.5, heart rate 86 and regular, blood pressure 127/85, mean arterial press ure 99, respiratory rate 22. Saturating 94%, end tidal CO2 of 47. Intake 5280, output 1900, positiv e 3380. Weight 218 pounds. HEAD, EYES, EARS, NOSE, AND THROAT: Pupils are reactive. Conjunctivae are pale. Sclerae are muddy. NECK: Supple. Endotracheal tube in place without secretions. CHEST: Bilateral breath sounds. Clear to auscultation anteriorly and laterally. HEART: Rhythm regular. S1, S2 normal. No audible murmur or rub. ABDOMEN: Obese. Bowel sounds present. No tenderness. No palpable mass. EXTREMITIES: With 1+ edema. Peripheral pulses intact, symmetrical. SKIN: Without rash. NEUROLOGIC: Alert, awake, able to lift head off the bed. Moves all 4 extremities. Deep tendon refl exes 2+ bilaterally, plantar mild flexor. CURRENT MEDICATIONS: Include Tylenol 650 q. 6 p.r.n., amiodarone 200 mg p.o. q. 12, Coreg 12.5 mg q. 12, ceftaroline 200 mg IV q. 12, fluconazole 100 mg daily, folic acid 1 mg daily, Humulin R, Accu-Ch ek with regular insulin coverage, Keppra 500 mg IV q. 12, lidocaine 2 grams, 1 gram per minute, loraz epam 1 mg IV q. 4 p.r.n., Protonix 40 IV daily, Xifaxan 550 p.o. twice daily, spironolactone 50 mg da kary, thiamine 100 mg daily. LABORATORY DATA: WBC 11.7, hemoglobin 13, hematocrit 39.9, platelet count 90,000. ABG: pH 7.38, pC O2 of 47, pO2 of 77, oxygen saturation 96.8 on CPAP 40, pressure support 10. SMA-7: Sodium 138, potassium 3.8, chloride 98, CO2 of 29, blood urea nitrogen 42, creatinine 2, gluc ose 218. AST 135, ALT 106. Alkaline phos is 204. Total protein 7.1, albumin 2.7. Sputum culture p ositive for yeast species. Blood culture - no growth reported. Chest x-ray from this morning: Endotracheal tube in place. Lungs clear. Bibasilar effusions, cardi omegaly. IMPRESSION: 1. Acute respiratory failure with hypoxia and hypercapnia, improved oxygenation and CO2 level as per ABG this morning. More alert, awake, follows commands appropriately, tolerating reduced vent suppor t, trial of extubation, and monitor respiratory status. 2. Aspiration pneumonia. Continue current antibiotic. Bilateral pleural effusion secondary to pneu monia and/or due to congestive dilated cardiomyopathy, ____ related to alcoholic, rule out ischemic c ardiomyopathy, status post ventricular fibrillation ventricular tachycardia arrest, status post resus citation. Given a low ejection fraction, may need automatic implantable cardiac defibrillator. 3. Seizure disorder related to EtOH withdrawal, stable now. Continue with the current medications. Keep head of bed 40 degrees up. 4. Deep venous thrombosis and gastrointestinal prophylaxis. 5. Cardiology followup and recommendation for automatic implantable cardiac defibrillator. 6. Antibiotic, as per infectious disease for aspiration pneumonia. 7. Closely monitor electrolyte imbalance, supplement as needed. Continue amiodarone, Coreg. Monito r further recurrence of cardiac arrhythmia. Lance Jones MD cc: [id number] TT: 09/11/2016 13:03:14 Confirmation # [id number] Dictation # [id number]
--- NOTE | 2016-09-11 13:42 | CP.PCM.PN ---
<Tiana June - Last Filed: 09/11/16 13:40> Subjective - Date & Time of Evaluation Date of Evaluation: 09/11/16 Time of Evaluation: 13:40 - Subjective Subjective: Gastroenterology Fellow/PGY4 Progress Note Patient remains intubated on wean trial. Awake, alert, and following commands. Lactulose provided via NG with Dignishield placed yesterday evening, 300cc overnight. A 12-point review of systems is limited while intubated. Objective - Vital Signs/Intake and Output Vital Signs (last 24 hours): Temp Pulse Resp BP Pulse Ox 98.5 F 86 22 127/85 94 L 09/11/16 11:35 09/11/16 11:35 09/11/16 11:35 09/11/16 11:35 09/11/16 11:35 Intake and Output: 09/11/16 09/11/16 06:59 18:59 Intake Total 2875 600 Output Total 800 Balance 2075 600 - Medications Medications: Current Medications Acetaminophen (Tylenol 650mg/20.3ml Solution Ud) 650 mg PO Q6 PRN PRN Reason: Fever >100.4 F Last Admin: 09/10/16 15:51 Dose: 650 mg Amiodarone HCl (Cordarone) 200 mg PO Q12H [facility] Last Admin: 09/11/16 11:17 Dose: 200 mg Carvedilol (Coreg) 12.5 mg PO Q12 [facility] Last Admin: 09/11/16 09:41 Dose: 12.5 mg Folic Acid (Folic Acid) 1 mg PO DAILY [facility] Last Admin: 09/11/16 09:42 Dose: 1 mg Levetiracetam 500 mg/ Sodium (Chloride) 105 mls @ 210 mls/hr IVPB Q12 [facility] Last Admin: 09/11/16 09:42 Dose: 210 mls/hr Dextrose/Sodium Chloride (Dextrose 5%/0.45% Ns 1000 Ml) 1,000 mls @ 100 mls/hr IV .Q10H [facility] Last Admin: 09/11/16 06:43 Dose: 100 mls/hr Fluconazole (Diflucan Iv 200 Mg/100 Ml Ns) 100 mls @ 100 mls/hr IVPB DAILY [facility] Last Admin: 09/11/16 09:41 Dose: 100 mls/hr Lidocaine HCl/Dextrose (Lidocaine 2 Grams In D5w) 500 mls @ 15 mls/hr IV .Q24H [facility] PRN Reason: 1 MG/MIN Last Admin: 09/10/16 08:27 Dose: 15 mls/hr Ceftaroline Fosamil 200 mg/ (Sodium Chloride) 100 mls @ 100 mls/hr IVPB Q12 [facility] Last Admin: 09/11/16 09:44 Dose: 100 mls/hr Insulin Human Regular (Humulin R) 0 units SC ACCU-CHECK [facility] PRN Reason: Protocol Last Admin: 09/11/16 11:18 Dose: 3 units Lorazepam (Ativan) 1 mg IVP Q4H PRN PRN Reason: agitation/anxiety on vent Last Admin: 09/10/16 22:34 Dose: 1 mg Multivitamins/Minerals (Therapeutic-M Tab) 1 tab PO DAILY [facility] Last Admin: 09/11/16 09:44 Dose: 1 tab Pantoprazole Sodium (Protonix Inj) 40 mg IVP DAILY [facility] Last Admin: 09/11/16 09:43 Dose: 40 mg Rifaximin (Xifaxan) 550 mg PO BID [facility] Last Admin: 09/11/16 09:44 Dose: 550 mg Spironolactone (Aldactone) 50 mg PO DAILY [facility] Last Admin: 09/11/16 09:40 Dose: 50 mg Thiamine HCl (Vitamin B1 Tab) 100 mg PO DAILY [facility] Last Admin: 09/11/16 09:44 Dose: 100 mg - Labs Labs: 09/11/16 05:30 09/11/16 05:30 PT 13.8 SECONDS (9.6-11.2) H 09/11/16 05:30 INR 1.33 (0.92-1.08) H 09/11/16 05:30 APTT 24.3 SECONDS (23.3-32.5) 09/06/16 04:25 - Constitutional Appears: Non-toxic, No Acute Distress - Head Exam Head Exam: ATRAUMATIC, NORMOCEPHALIC - Eye Exam Eye Exam: EOMI, PERRL Pupil Exam: PERRL. absent: Miosis, Mydriatic - ENT Exam ENT Exam: Mucous Membranes Moist, Normal Oropharynx - Neck Exam Neck Exam: Full ROM, Normal Inspection - Respiratory Exam Respiratory Exam: Clear to Ausculation Bilateral. absent: Rales, Rhonchi, Wheezes - Cardiovascular Exam Cardiovascular Exam: RRR, +S1, +S2. absent: Gallop, Rubs - GI/Abdominal Exam GI & Abdominal Exam: Soft, Normal Bowel Sounds. absent: Firm, Guarding, Rigid, Tenderness, Mass, Organomegaly, Rebound - Extremities Exam Extremities Exam: Pedal Edema - Neurological Exam Neurological Exam: Awake - Skin Skin Exam: Diaphoretic, Intact, Normal Color, Warm Assessment and Plan - Assessment and Plan (Free Text) Assessment: 51 year old male with history of Hypertension, Diabetes, active Alcohol Abuse, and Alcoholic cirrhosis presenting with seizure likely secondary to alcohol withdrawal. Active treatment of ventilator dependent respiratory failure for airway protection and Vtach/Vfib arrest with ROSC on 09/08/16. Noted to have ischemic cardiomyopathy 15% on ECHO. No prior EGD or colonoscopy. Alcohol withdrawal complicated by seizure s/p ventilator support for airway protection Vtach/Vfib arrest s/p CPR with ROSC Ischemic cardiomyopathy Aspiration pneumonia SIRs criteria/sepsis Hyperbilirubinemia, resolved Transaminitis, improving Renal insufficiency, improving Plan: >MELD 17, on >continue Lactulose 20gm OG BID, titrate to 2-3 BMs per day >continue Rifaxamin 550mg OG BID >monitor renal function >monitor LFTs- multifactorial -Alcohol abuse, cirrhosis, Cardiomyopathy, renal insufficiency, recent ACLS >daily LFTs, PT/INR >strict I&Os >nephrology managing- gentle IVFs >cardiology managing- recommendation for AICD >ID managing-on Ceftaroline, Diflucan >3/ sputum culture-yeast >/ blood and urine culture negative to date; 08/30 Blood-S. coag >will make further recommendations based on clinical course <Crystal Collazo - Last Filed: 09/11/16 14:18> Objective - Vital Signs/Intake and Output Vital Signs (last 24 hours): Temp Pulse Resp BP Pulse Ox 98.5 F 86 22 127/85 94 L 09/11/16 11:35 09/11/16 11:35 09/11/16 11:35 09/11/16 11:35 09/11/16 11:35 Intake and Output: 09/11/16 09/11/16 06:59 18:59 Intake Total 2875 600 Output Total 800 Balance 2075 600 - Medications Medications: Current Medications Acetaminophen (Tylenol 650mg/20.3ml Solution Ud) 650 mg PO Q6 PRN PRN Reason: Fever >100.4 F Last Admin: 09/10/16 15:51 Dose: 650 mg Amiodarone HCl (Cordarone) 200 mg PO Q12H [facility] Last Admin: 09/11/16 11:17 Dose: 200 mg Carvedilol (Coreg) 12.5 mg PO Q12 [facility] Last Admin: 09/11/16 09:41 Dose: 12.5 mg Folic Acid (Folic Acid) 1 mg PO DAILY [facility] Last Admin: 09/11/16 09:42 Dose: 1 mg Levetiracetam 500 mg/ Sodium (Chloride) 105 mls @ 210 mls/hr IVPB Q12 [facility] Last Admin: 09/11/16 09:42 Dose: 210 mls/hr Dextrose/Sodium Chloride (Dextrose 5%/0.45% Ns 1000 Ml) 1,000 mls @ 100 mls/hr IV .Q10H [facility] Last Admin: 09/11/16 06:43 Dose: 100 mls/hr Fluconazole (Diflucan Iv 200 Mg/100 Ml Ns) 100 mls @ 100 mls/hr IVPB DAILY [facility] Last Admin: 09/11/16 09:41 Dose: 100 mls/hr Lidocaine HCl/Dextrose (Lidocaine 2 Grams In D5w) 500 mls @ 15 mls/hr IV .Q24H [facility] PRN Reason: 1 MG/MIN Last Admin: 09/10/16 08:27 Dose: 15 mls/hr Ceftaroline Fosamil 200 mg/ (Sodium Chloride) 100 mls @ 100 mls/hr IVPB Q12 [facility] Last Admin: 09/11/16 09:44 Dose: 100 mls/hr Insulin Human Regular (Humulin R) 0 units SC ACCU-CHECK [facility] PRN Reason: Protocol Last Admin: 09/11/16 11:18 Dose: 3 units Lorazepam (Ativan) 1 mg IVP Q4H PRN PRN Reason: agitation/anxiety on vent Last Admin: 09/10/16 22:34 Dose: 1 mg Multivitamins/Minerals (Therapeutic-M Tab) 1 tab PO DAILY [facility] Last Admin: 09/11/16 09:44 Dose: 1 tab Pantoprazole Sodium (Protonix Inj) 40 mg IVP DAILY [facility] Last Admin: 09/11/16 09:43 Dose: 40 mg Rifaximin (Xifaxan) 550 mg PO BID [facility] Last Admin: 09/11/16 09:44 Dose: 550 mg Spironolactone (Aldactone) 50 mg PO DAILY [facility] Last Admin: 09/11/16 09:40 Dose: 50 mg Thiamine HCl (Vitamin B1 Tab) 100 mg PO DAILY [facility] Last Admin: 09/11/16 09:44 Dose: 100 mg - Labs Labs: 09/11/16 05:30 09/11/16 05:30 PT 13.8 SECONDS (9.6-11.2) H 09/11/16 05:30 INR 1.33 (0.92-1.08) H 09/11/16 05:30 APTT 24.3 SECONDS (23.3-32.5) 09/06/16 04:25 Attending/Attestation - Attestation I have personally seen and examined this patient.: Yes I have fully participated in the care of the patient.: Yes I have reviewed all pertinent clinical information, including history, physical exam and plan: Yes Notes (Text): Patient seen and examined with GI fellow. Agree with her note as documented above with the following additions/exceptions. This is a 51 year old male with h/o ETOH cirrhosis, HTN, DM who is admitted with ETOH withdrawal complicated by seizure, VT arrest now intubated in ICU. He has dilated cardiomyopathy (EF 15%) . He is on wean trial with plan for possible extubation today. He is more alert. Having multiple BM with lactulose. Titrate lactulose to 2-3BM/day, continue rifaximin. Cr improved today, continue to monitor. The patient will ultimately require EGD for variceal screening, which can be arranged as outpatient. He would also benefit from triple phase liver imaging, but would defer for now given NONA. 09/11/16 14:15
[2016-09-11] MEDS: Lidocaine 2 Grams in D5W 500 ML IV SCH (21:00)
[2016-09-12 05:53] LABS: ALB/GLOB RATIO 0.7 (1.0-2.1); BILIRUBIN,TOTAL 1.5 mg/dl (0.2-1.3); CALCIUM 7.8 mg/dL (8.4-10.2); POTASSIUM 3.8 MMOL/L (3.6-5.0); TOTAL PROTEIN 6.2 G/DL (6.3-8.2)
[2016-09-12 06:07] LABS: HEMATOCRIT 36.4 % (35.0-51.0); MEAN CELL VOLUME 95.2 fl (80.0-94.0); MEAN CORPUSCULAR HEMOGLOBIN 30.9 pg (27.0-31.0); MEAN CORPUSCULAR HGB CONC 32.5 g/dL (33.0-37.0); RED CELL DISTRIBUTION WIDTH 15.1 % (11.5-14.5); WHITE BLOOD COUNT 6.4 K/uL (4.8-10.8)
[2016-09-12] MEDS: Dextrose 5%/0.45% NS 1,000 ML IV SCH ×2 (06:13→06:15)
[2016-09-12] MEDS: Insulin Regular 100 units/ml SC SCH ×4 (06:26→23:15)
[2016-09-12] MEDS: Fluconazole IV 200mg/100 ml NS 100 ML IVPB SCH (08:39)
[2016-09-12] MEDS: levETIRAcetam 500 MG in Sodium Chloride 0.9% 100 ML IVPB SCH ×2 (08:40→20:52)
[2016-09-12] MEDS: Multivitamin With Minerals Tab PO SCH (08:42)
--- NOTE | 2016-09-12 08:50 | PN ---
DATE: 09/11/2016 SUBJECTIVE: The patient is seen today 09/11/2016. He is still intubated on CPAP. . PHYSICAL EXAMINATION: VITAL SIGNS: Blood pressure 115/88, temperature 98.9, respiratory rate 18, and pulse is 70. NECK: Supple, no JVD, no carotid bruit, no lymph node, no thyromegaly. CHEST AND LUNGS: Bilateral symmetrical expansion, good air exchange, basilar rales. CARDIOVASCULAR: PMI not localized. S1, S2. No additional sounds. ABDOMEN: Normoactive bowel sounds, no tenderness, no organomegaly, no masses. EXTREMITIES: No cyanosis and no clubbing. ____. CENTRAL NERVOUS SYSTEM: Awake and follows commands ASSESSMENT: 1. . 2. . 3. Dilated cardiomyopathy. PLAN: Continue current . Follow recommendations of consultants. Canelo Ellison MD cc: [phone] TT: 09/11/2016 22:12:18 Confirmation # [id number] Dictation # [id number]
--- NOTE | 2016-09-12 09:27 | PN ---
DATE: 09/09/2016 The patient was care unit and he cardiac resuscitation for ventricular fibrillation. Blood pressure was 94/67, temperature 99.3, respiratory rate 21, and pulse is 68. NECK: No JVD, no carotid bruit, no lymph node, no thyromegaly. CHEST AND LUNGS: Bilateral symmetrical expansion. Few basilar rales. CARDIOVASCULAR: PMI not localized. S1, S2. No additional sounds. ABDOMEN: Normoactive bowel sounds, no tenderness, no organomegaly, no masses. EXTREMITIES: No cyanosis, no clubbing, no edema. CENTRAL NERVOUS SYSTEM: The patient is sedated, on ventilator. ASSESSMENT: 1. Status post cardiac resuscitation for ventricular fibrillation. 2. Dilated cardiomyopathy. 3. Alcohol withdrawal seizure. 4. . 5. Respiratory failure. 6. Aspiration pneumonia. PLAN: Continue current IV antibiotics and follow recommendations of ID, studio artist, and pulmonolog ist. Continue ventilator management as per cardio clinician. Canelo Ellison MD cc: 167 TT: 09/10/2016 22:41:56 Confirmation # [id number] Dictation # [id number]
--- NOTE | 2016-09-12 09:49 | CP.PCM.PN ---
Subjective - Date & Time of Evaluation Date of Evaluation: 09/12/16 Time of Evaluation: 09:44 - Subjective Subjective: Interim events reviewed. Successfully extubated yesterday. On O2 via face mask 50% with SpO2 100%. Occasional cough during exam (congested). Follows commands, cooperative with exam. Appears to be confused at times. Remains afebrile. Neck is supple and trachea midline. No dullness on percussion of the anterior chest wall/ No subcut emphysema palpated. Trace dependant edema w/o cyanosis. Breath sounds present bilaterally with sonorous rhonchi present on coughing. No audible wheezes, no bronchial breath sounds or egophony. No CXR done this morning. Oxygen weaned and he was placed on nasal canula at 3LPM. SpO2 remained 95%+. Coughed up thick yellow mucous during exam. Remains on present medical regimen w/o change. Follow up CXR in AM. One sputum gram stain/culture result is pending. Objective - Vital Signs/Intake and Output Vital Signs (last 24 hours): Temp Pulse Resp BP Pulse Ox 98.5 F 69 27 H 115/77 100 09/12/16 08:00 09/12/16 08:39 09/12/16 08:00 09/12/16 08:39 09/12/16 08:00 Intake and Output: 09/11/16 09/12/16 23:59 11:59 Intake Total 2295 1200 Output Total 2100 900 Balance 195 300 - Medications Medications: Current Medications Acetaminophen (Tylenol 650mg/20.3ml Solution Ud) 650 mg PO Q6 PRN PRN Reason: Fever >100.4 F Last Admin: 09/10/16 15:51 Dose: 650 mg Amiodarone HCl (Cordarone) 200 mg PO Q12H [facility] Last Admin: 09/11/16 23:38 Dose: Not Given Carvedilol (Coreg) 12.5 mg PO Q12 [facility] Last Admin: 09/12/16 08:39 Dose: 12.5 mg Folic Acid (Folic Acid) 1 mg PO DAILY [facility] Last Admin: 09/12/16 08:40 Dose: 1 mg Levetiracetam 500 mg/ Sodium (Chloride) 105 mls @ 210 mls/hr IVPB Q12 [facility] Last Admin: 09/12/16 08:40 Dose: 210 mls/hr Dextrose/Sodium Chloride (Dextrose 5%/0.45% Ns 1000 Ml) 1,000 mls @ 100 mls/hr IV .Q10H [facility] Last Admin: 09/12/16 06:13 Dose: 100 mls/hr Fluconazole (Diflucan Iv 200 Mg/100 Ml Ns) 100 mls @ 100 mls/hr IVPB DAILY [facility] Last Admin: 09/12/16 08:39 Dose: 100 mls/hr Lidocaine HCl/Dextrose (Lidocaine 2 Grams In D5w) 500 mls @ 15 mls/hr IV .Q24H [facility] PRN Reason: 1 MG/MIN Last Admin: 09/11/16 21:00 Dose: 15 mls/hr Ceftaroline Fosamil 200 mg/ (Sodium Chloride) 100 mls @ 100 mls/hr IVPB Q12 [facility] Last Admin: 09/12/16 08:41 Dose: 100 mls/hr Insulin Human Regular (Humulin R) 0 units SC ACCU-CHECK [facility] PRN Reason: Protocol Last Admin: 09/12/16 06:26 Dose: Not Given Lorazepam (Ativan) 1 mg IVP Q4H PRN PRN Reason: agitation/anxiety on vent Last Admin: 09/10/16 22:34 Dose: 1 mg Multivitamins/Minerals (Therapeutic-M Tab) 1 tab PO DAILY [facility] Last Admin: 09/12/16 08:42 Dose: 1 tab Pantoprazole Sodium (Protonix Inj) 40 mg IVP DAILY [facility] Last Admin: 09/12/16 08:40 Dose: 40 mg Rifaximin (Xifaxan) 550 mg PO BID [facility] Last Admin: 09/12/16 08:42 Dose: 550 mg Thiamine HCl (Vitamin B1 Tab) 100 mg PO DAILY [facility] Last Admin: 09/12/16 08:42 Dose: 100 mg - Labs Labs: 09/12/16 05:00 09/12/16 05:00 PT 13.8 SECONDS (9.6-11.2) H 09/11/16 05:30 INR 1.33 (0.92-1.08) H 09/11/16 05:30 APTT 24.3 SECONDS (23.3-32.5) 09/06/16 04:25 Assessment and Plan (1) Aspiration pneumonia Status: Acute (2) Acute respiratory failure with hypoxia and hypercapnia Status: Acute (3) Pleural effusion Status: Acute (4) Congestive cardiomyopathy Status: Chronic (5) Altered mental status Status: Acute
--- NOTE | 2016-09-12 09:55 | CP.PCM.PN ---
Subjective - Date & Time of Evaluation Date of Evaluation: 09/12/16 Time of Evaluation: 09:30 - Subjective Subjective: Extubated Alert, awake, comfortable Breathes at 18 BPM, Pulse ox 94-95% on R/A (Pt has removed N/C) Sinus at 70 BPM (Had a bradycardic spell last night) BP 114/74 mm Hg, JVP flat No rales Creatinine 1.7 mg ( Keeps improving) Will statr PT Objective - Vital Signs/Intake and Output Vital Signs (last 24 hours): Temp Pulse Resp BP Pulse Ox 98.5 F 71 27 H 115/77 100 09/12/16 08:00 09/12/16 08:00 09/12/16 08:00 09/12/16 08:00 09/12/16 08:00 Intake and Output: 09/12/16 09/12/16 06:59 18:59 Intake Total 1445 300 Output Total 900 Balance 545 300 - Medications Medications: Current Medications Acetaminophen (Tylenol 650mg/20.3ml Solution Ud) 650 mg PO Q6 PRN PRN Reason: Fever >100.4 F Last Admin: 09/10/16 15:51 Dose: 650 mg Amiodarone HCl (Cordarone) 200 mg PO Q12H [facility] Last Admin: 09/11/16 23:38 Dose: Not Given Folic Acid (Folic Acid) 1 mg PO DAILY [facility] Last Admin: 09/12/16 08:40 Dose: 1 mg Levetiracetam 500 mg/ Sodium (Chloride) 105 mls @ 210 mls/hr IVPB Q12 [facility] Last Admin: 09/12/16 08:40 Dose: 210 mls/hr Dextrose/Sodium Chloride (Dextrose 5%/0.45% Ns 1000 Ml) 1,000 mls @ 100 mls/hr IV .Q10H [facility] Last Admin: 09/12/16 06:13 Dose: 100 mls/hr Fluconazole (Diflucan Iv 200 Mg/100 Ml Ns) 100 mls @ 100 mls/hr IVPB DAILY [facility] Last Admin: 09/12/16 08:39 Dose: 100 mls/hr Lidocaine HCl/Dextrose (Lidocaine 2 Grams In D5w) 500 mls @ 15 mls/hr IV .Q24H [facility] PRN Reason: 1 MG/MIN Last Admin: 09/11/16 21:00 Dose: 15 mls/hr Ceftaroline Fosamil 200 mg/ (Sodium Chloride) 100 mls @ 100 mls/hr IVPB Q12 [facility] Last Admin: 09/12/16 08:41 Dose: 100 mls/hr Insulin Human Regular (Humulin R) 0 units SC ACCU-CHECK [facility] PRN Reason: Protocol Last Admin: 09/12/16 06:26 Dose: Not Given Lorazepam (Ativan) 1 mg IVP Q4H PRN PRN Reason: agitation/anxiety on vent Last Admin: 09/10/16 22:34 Dose: 1 mg Multivitamins/Minerals (Therapeutic-M Tab) 1 tab PO DAILY [facility] Last Admin: 09/12/16 08:42 Dose: 1 tab Pantoprazole Sodium (Protonix Inj) 40 mg IVP DAILY [facility] Last Admin: 09/12/16 08:40 Dose: 40 mg Rifaximin (Xifaxan) 550 mg PO BID [facility] Last Admin: 09/12/16 08:42 Dose: 550 mg Thiamine HCl (Vitamin B1 Tab) 100 mg PO DAILY [facility] Last Admin: 09/12/16 08:42 Dose: 100 mg - Labs Labs: 09/12/16 05:00 09/12/16 05:00 PT 13.8 SECONDS (9.6-11.2) H 09/11/16 05:30 INR 1.33 (0.92-1.08) H 09/11/16 05:30 APTT 24.3 SECONDS (23.3-32.5) 09/06/16 04:25
--- NOTE | 2016-09-12 10:00 | CP.PCM.PN ---
<Tiana June - Last Filed: 09/12/16 09:55> Subjective - Date & Time of Evaluation Date of Evaluation: 09/12/16 Time of Evaluation: 09:55 - Subjective Subjective: Gastroenterology Fellow/PGY4 Progress Note Patient extubated yesterday. Awake, alert, and oriented x3. [place] output of 300cc overnight. A 12-point review of systems is negative except for as above. Objective - Vital Signs/Intake and Output Vital Signs (last 24 hours): Temp Pulse Resp BP Pulse Ox 98.5 F 72 27 H 115/78 100 09/12/16 08:00 09/12/16 09:48 09/12/16 08:00 09/12/16 09:48 09/12/16 08:00 Intake and Output: 09/12/16 09/12/16 06:59 18:59 Intake Total 1445 300 Output Total 900 Balance 545 300 - Medications Medications: Current Medications Acetaminophen (Tylenol 650mg/20.3ml Solution Ud) 650 mg PO Q6 PRN PRN Reason: Fever >100.4 F Last Admin: 09/10/16 15:51 Dose: 650 mg Amiodarone HCl (Cordarone) 200 mg PO Q12H [facility] Last Admin: 09/11/16 23:38 Dose: Not Given Folic Acid (Folic Acid) 1 mg PO DAILY [facility] Last Admin: 09/12/16 08:40 Dose: 1 mg Levetiracetam 500 mg/ Sodium (Chloride) 105 mls @ 210 mls/hr IVPB Q12 [facility] Last Admin: 09/12/16 08:40 Dose: 210 mls/hr Dextrose/Sodium Chloride (Dextrose 5%/0.45% Ns 1000 Ml) 1,000 mls @ 100 mls/hr IV .Q10H [facility] Last Admin: 09/12/16 06:13 Dose: 100 mls/hr Fluconazole (Diflucan Iv 200 Mg/100 Ml Ns) 100 mls @ 100 mls/hr IVPB DAILY [facility] Last Admin: 09/12/16 08:39 Dose: 100 mls/hr Lidocaine HCl/Dextrose (Lidocaine 2 Grams In D5w) 500 mls @ 15 mls/hr IV .Q24H [facility] PRN Reason: 1 MG/MIN Last Admin: 09/11/16 21:00 Dose: 15 mls/hr Ceftaroline Fosamil 200 mg/ (Sodium Chloride) 100 mls @ 100 mls/hr IVPB Q12 [facility] Last Admin: 09/12/16 08:41 Dose: 100 mls/hr Insulin Human Regular (Humulin R) 0 units SC ACCU-CHECK [facility] PRN Reason: Protocol Last Admin: 09/12/16 06:26 Dose: Not Given Lorazepam (Ativan) 1 mg IVP Q4H PRN PRN Reason: agitation/anxiety on vent Last Admin: 09/10/16 22:34 Dose: 1 mg Multivitamins/Minerals (Therapeutic-M Tab) 1 tab PO DAILY [facility] Last Admin: 09/12/16 08:42 Dose: 1 tab Pantoprazole Sodium (Protonix Inj) 40 mg IVP DAILY [facility] Last Admin: 09/12/16 08:40 Dose: 40 mg Rifaximin (Xifaxan) 550 mg PO BID [facility] Last Admin: 09/12/16 08:42 Dose: 550 mg Thiamine HCl (Vitamin B1 Tab) 100 mg PO DAILY [facility] Last Admin: 09/12/16 08:42 Dose: 100 mg - Labs Labs: 09/12/16 05:00 09/12/16 05:00 PT 13.8 SECONDS (9.6-11.2) H 09/11/16 05:30 INR 1.33 (0.92-1.08) H 09/11/16 05:30 APTT 24.3 SECONDS (23.3-32.5) 09/06/16 04:25 - Constitutional Appears: Non-toxic, No Acute Distress - Head Exam Head Exam: ATRAUMATIC, NORMOCEPHALIC - Eye Exam Eye Exam: EOMI, PERRL Pupil Exam: PERRL. absent: Miosis, Mydriatic - ENT Exam ENT Exam: Mucous Membranes Moist, Normal Oropharynx - Neck Exam Neck Exam: Full ROM, Normal Inspection - Respiratory Exam Respiratory Exam: Clear to Ausculation Bilateral. absent: Rales, Rhonchi, Wheezes - Cardiovascular Exam Cardiovascular Exam: RRR, +S1, +S2. absent: Gallop, Rubs - GI/Abdominal Exam GI & Abdominal Exam: Soft, Normal Bowel Sounds. absent: Distended, Firm, Guarding, Rigid, Tenderness, Organomegaly, Rebound - Extremities Exam Extremities Exam: Normal Inspection, Pedal Edema - Neurological Exam Neurological Exam: Alert, Awake, Oriented x3 - Psychiatric Exam Psychiatric exam: Normal Affect, Normal Mood - Skin Skin Exam: Dry, Intact, Normal Color, Warm Assessment and Plan - Assessment and Plan (Free Text) Assessment: 51 year old male with history of Hypertension, Diabetes, active Alcohol Abuse, and Alcoholic cirrhosis presenting with seizure likely secondary to alcohol withdrawal. Status post extubation 09/11 for ventilator dependent respiratory failure for airway protection in setting of alcohol withdrawal complicated by seizure, Vtach/Vfib arrest with ROSC on 09/08/16, and ischemic cardiomyopathy,15% . No prior EGD or colonoscopy. Aspiration pneumonia Hyperbilirubinemia, resolved Transaminitis, improving Renal insufficiency, improving Plan: >creatinine improving >nephrology managing- gentle IVFs >cardiology managing- recommendation for AICD >ID managing-on Ceftaroline, Diflucan >MELD 17 09/11, on 09/01- >continue Lactulose BID, titrate to 2-3 BMs per day >continue Rifaxamin 550mg BID >LFTs improving >daily LFTs, PT/INR >strict I&Os >low salt diet >will benefit from CT liver protocol once creatinine improves >outpatient EGD for variceal screening <Linda Silva MD - Last Filed: 09/12/16 10:15> Objective - Vital Signs/Intake and Output Vital Signs (last 24 hours): Temp Pulse Resp BP Pulse Ox 98.5 F 72 27 H 115/78 100 09/12/16 08:00 09/12/16 09:48 09/12/16 08:00 09/12/16 09:48 09/12/16 08:00 Intake and Output: 09/12/16 09/12/16 06:59 18:59 Intake Total 1445 300 Output Total 900 Balance 545 300 - Medications Medications: Current Medications Acetaminophen (Tylenol 650mg/20.3ml Solution Ud) 650 mg PO Q6 PRN PRN Reason: Fever >100.4 F Last Admin: 09/10/16 15:51 Dose: 650 mg Amiodarone HCl (Cordarone) 200 mg PO Q12H [facility] Last Admin: 09/11/16 23:38 Dose: Not Given Folic Acid (Folic Acid) 1 mg PO DAILY [facility] Last Admin: 09/12/16 08:40 Dose: 1 mg Levetiracetam 500 mg/ Sodium (Chloride) 105 mls @ 210 mls/hr IVPB Q12 [facility] Last Admin: 09/12/16 08:40 Dose: 210 mls/hr Dextrose/Sodium Chloride (Dextrose 5%/0.45% Ns 1000 Ml) 1,000 mls @ 100 mls/hr IV .Q10H [facility] Last Admin: 09/12/16 06:13 Dose: 100 mls/hr Fluconazole (Diflucan Iv 200 Mg/100 Ml Ns) 100 mls @ 100 mls/hr IVPB DAILY [facility] Last Admin: 09/12/16 08:39 Dose: 100 mls/hr Lidocaine HCl/Dextrose (Lidocaine 2 Grams In D5w) 500 mls @ 15 mls/hr IV .Q24H [facility] PRN Reason: 1 MG/MIN Last Admin: 09/11/16 21:00 Dose: 15 mls/hr Ceftaroline Fosamil 200 mg/ (Sodium Chloride) 100 mls @ 100 mls/hr IVPB Q12 [facility] Last Admin: 09/12/16 08:41 Dose: 100 mls/hr Insulin Human Regular (Humulin R) 0 units SC ACCU-CHECK [facility] PRN Reason: Protocol Last Admin: 09/12/16 06:26 Dose: Not Given Lorazepam (Ativan) 1 mg IVP Q4H PRN PRN Reason: agitation/anxiety on vent Last Admin: 09/10/16 22:34 Dose: 1 mg Multivitamins/Minerals (Therapeutic-M Tab) 1 tab PO DAILY [facility] Last Admin: 09/12/16 08:42 Dose: 1 tab Pantoprazole Sodium (Protonix Inj) 40 mg IVP DAILY [facility] Last Admin: 09/12/16 08:40 Dose: 40 mg Rifaximin (Xifaxan) 550 mg PO BID [facility] Last Admin: 09/12/16 08:42 Dose: 550 mg Thiamine HCl (Vitamin B1 Tab) 100 mg PO DAILY [facility] Last Admin: 09/12/16 08:42 Dose: 100 mg - Labs Labs: 09/12/16 05:00 09/12/16 05:00 PT 13.8 SECONDS (9.6-11.2) H 09/11/16 05:30 INR 1.33 (0.92-1.08) H 09/11/16 05:30 APTT 24.3 SECONDS (23.3-32.5) 09/06/16 04:25 Attending/Attestation - Attestation I have personally seen and examined this patient.: Yes I have fully participated in the care of the patient.: Yes I have reviewed all pertinent clinical information, including history, physical exam and plan: Yes Notes (Text): 09/12/16 10:14 Patient seen and examined with GI fellow. Agree with her note as documented above with the following additions/exceptions. This is a 51 year old male with h/o ETOH cirrhosis, HTN, DM who is admitted with ETOH withdrawal complicated by seizure, VT arrest now intubated and extubated in ICU. He has dilated cardiomyopathy (EF 15%). He is more alert and having multiple BM with lactulose. Titrate lactulose to 2-3BM/day, continue rifaximin. Cr improved today, continue to monitor. The patient will ultimately require EGD for variceal screening, which can be arranged as outpatient. He would also benefit from triple phase liver imaging, but would defer for now given NONA. Will follow. Diet as tolerated.
--- NOTE | 2016-09-12 18:35 | PN ---
DATE: 09/12/2016 The patient is lying on the bed in no acute distress. Denies any headache or dizziness. He is statu s post extubation. PHYSICAL EXAMINATION: VITAL SIGNS: His blood pressure is 156/86, heart rate is 91 per minute, breathing at a rate of 16 pe r minute, temperature is 99.2 degrees Fahrenheit. HEENT: Normocephalic, atraumatic. NECK: Supple. There are no carotid bruits. LUNGS: Clear. CARDIOVASCULAR: S1, S2 audible. No murmurs. ABDOMEN: Soft, nontender. Bowel sounds present. NEUROLOGIC EXAMINATION: MENTAL STATUS: The patient is awake and alert and oriented to year as 2017, the president as [place], place he said is in [place]. He follows simple commands. CRANIAL NERVE EXAMINATION: Pupils are 4 mm bilaterally reactive to light. Visual pittman are full. Extraocular movements are intact. There is no facial asymmetry. Palate is upgoing bilaterally and t ongue is midline. MOTOR EXAMINATION: Tone is normal. Power is 4/5 bilaterally in all extremities. Reflexes +1 and sy mmetrical. Plantars downgoing bilaterally. IMPRESSION: 1. Status post new onset seizures secondary to alcohol withdrawal. 2. Status post metabolic encephalopathy. 3. Status post code. RECOMMENDATIONS: 1. The patient had a CT scan of the head done on 09/09/2016 showed no evidence of acute intracranial h emorrhage intracranial collection, mass effect or midline shift. No significant interval change in t he brain since the previous exam. 2. The patient is more awake and alert and more lucid. 3. The patient had no further seizures. 4. The patient to be continued on Keppra 500 mg twice a day. 5. The patient to be continued on thiamine and multivitamin. 6. The patient's mental status seems to be improving. 7. Please continue other treatment and supportive care. Thank you for the opportunity to participate in the care of this patient. Julio Cesar Quintero MD cc: [id number] TT: 09/12/2016 18:34:19 Confirmation # [id number] Dictation # [id number]
--- NOTE | 2016-09-12 18:58 | PN ---
DATE: 09/12/2016 LOCATION: The patient in ICU, bed 424. TIME SPENT: 35 minutes. Seen and evaluated at the bedside. Events since admission are reviewed. Past medical, surgical and social history noted and reviewed. A 51-year-old male admitted on 08/30, status post seizure related to alcohol withdrawal. Subsequently developed aspiration pneumonia. Noted to have alcohol-related cardiomyopathy with a pleural effusion with a low EF, status post ventricular tachycardia, ventricular fibrillation, extubated yesterday on 50% Ventimask, saturating 100%. This morning, alert, awake, follows commands appropriate, reportedl y confused at times. PHYSICAL EXAMINATION: VITAL SIGNS: Temperature 99.3, heart rate 86, blood pressure 137-150/199-107, respiratory rate 31, s aturating 94%. INTAKE AND OUTPUT: Intake 3795, output 3000, positive 795. HEENT: Pupils are reactive. Conjunctivae are pale. Sclerae muddy. NECK: Supple. CHEST: Bilateral breath sounds, scattered rhonchi. No audible wheezing. No bronchial breath sounds . ABDOMEN: Bowel sounds present. Mild tenderness in the right upper quadrant, epigastric area. EXTREMITIES: 1+ edema. NEUROLOGIC: Remains alert, awake, but confused and agitated intermittently. Moves all 4 extremities . CURRENT MEDICATIONS: Include Tylenol 650 q. 6 p.r.n., ceftaroline 200 mg IV q. 12, D5 half normal at 100 mL per hour, Diflucan 200 mg IV daily, folic acid 1 mg daily, Accu-Chek with regular insulin cov erage, Keppra 500 mg IV q. 12, lidocaine discontinued, Ativan 1 mg IV q. 4 p.r.n., multivitamin table t daily, Protonix 40 IV daily, Xifaxan 550 b.i.d., thiamine 100 mg daily. IMPRESSION: 1. Status post ventilator-dependent respiratory failure, extubated, on FiO2 50%, saturating over 94% . 2. Aspiration pneumonia, improving on antibiotic. 3. Pleural effusion, stable. 4. Alcoholic cardiomyopathy with a very low EF, intermittent arrhythmias, needs AICD when stable. 5. Alcohol dependence. 6. Alcohol related withdrawal, stable. Continue on multivitamin, thiamine and folic acid. 7. Alcohol related liver cirrhosis/hepatitis, on Xifaxan. Continue gastrointestinal prophylaxis. Lance Jones MD cc: [id number] TT: 09/12/2016 18:57:52 Confirmation # [id number] Dictation # [id number]
--- NOTE | 2016-09-12 20:19 | CP.PCM.PN ---
Subjective - Date & Time of Evaluation Date of Evaluation: 09/12/16 Time of Evaluation: 15:00 - Subjective Subjective: SEEN IN ICU .. EXTUBATED YESTERDAY ALERT .. MILDLY LETHARGIC .. IN NAD ALL PREVIOUS EMR REVIEWED RENAL FUNCTION STABLE / IMPROVING CURRENTLY ON D5 1/2 NS AT 100 CC/H Objective - Vital Signs/Intake and Output Vital Signs (last 24 hours): Temp Pulse Resp BP Pulse Ox 99.3 F 91 H 23 148/97 H 93 L 09/12/16 16:00 09/12/16 18:00 09/12/16 18:00 09/12/16 18:00 09/12/16 18:00 Intake and Output: 09/12/16 09/13/16 18:59 06:59 Intake Total 1500 Output Total 1000 Balance 500 - Medications Medications: Current Medications Acetaminophen (Tylenol 650mg/20.3ml Solution Ud) 650 mg PO Q6 PRN PRN Reason: Fever >100.4 F Last Admin: 09/10/16 15:51 Dose: 650 mg Folic Acid (Folic Acid) 1 mg PO DAILY [facility] Last Admin: 09/12/16 08:40 Dose: 1 mg Levetiracetam 500 mg/ Sodium (Chloride) 105 mls @ 210 mls/hr IVPB Q12 [facility] Last Admin: 09/12/16 08:40 Dose: 210 mls/hr Dextrose/Sodium Chloride (Dextrose 5%/0.45% Ns 1000 Ml) 1,000 mls @ 100 mls/hr IV .Q10H [facility] Last Admin: 09/12/16 06:13 Dose: 100 mls/hr Fluconazole (Diflucan Iv 200 Mg/100 Ml Ns) 100 mls @ 100 mls/hr IVPB DAILY [facility] Last Admin: 09/12/16 08:39 Dose: 100 mls/hr Lidocaine HCl/Dextrose (Lidocaine 2 Grams In D5w) 500 mls @ 15 mls/hr IV .Q24H [facility] PRN Reason: 1 MG/MIN Last Admin: 09/11/16 21:00 Dose: 15 mls/hr Ceftaroline Fosamil 200 mg/ (Sodium Chloride) 100 mls @ 100 mls/hr IVPB Q12 [facility] Last Admin: 09/12/16 08:41 Dose: 100 mls/hr Insulin Human Regular (Humulin R) 0 units SC ACCU-CHECK [facility] PRN Reason: Protocol Last Admin: 09/12/16 16:28 Dose: Not Given Lorazepam (Ativan) 1 mg IVP Q4H PRN PRN Reason: agitation/anxiety on vent Last Admin: 09/10/16 22:34 Dose: 1 mg Multivitamins/Minerals (Therapeutic-M Tab) 1 tab PO DAILY [facility] Last Admin: 09/12/16 08:42 Dose: 1 tab Pantoprazole Sodium (Protonix Inj) 40 mg IVP DAILY [facility] Last Admin: 09/12/16 08:40 Dose: 40 mg Rifaximin (Xifaxan) 550 mg PO BID [facility] Last Admin: 09/12/16 16:32 Dose: 550 mg Thiamine HCl (Vitamin B1 Tab) 100 mg PO DAILY [facility] Last Admin: 09/12/16 08:42 Dose: 100 mg - Labs Labs: 09/12/16 05:00 09/12/16 05:00 PT 13.8 SECONDS (9.6-11.2) H 09/11/16 05:30 INR 1.33 (0.92-1.08) H 09/11/16 05:30 APTT 24.3 SECONDS (23.3-32.5) 09/06/16 04:25 Assessment and Plan - Assessment and Plan (Free Text) Assessment: NONA .. RENAL FUNCTION IMPROVING ELECTROLYTES R K S/P EXTUBATION ETOH ABUSE MULTIPLE CO MORBIDITIES P : C/O CURRENT CARE C/O IVF WATCH CLOSELY IN ICU
[2016-09-12] MEDS: Metoprolol 1 mg/ml Inj IVP STA (22:51)
[2016-09-13 00:45] LABS: ABG ALLEN TEST YES; ARTERIAL BLOOD GAS HCO3 23.7 mmol/L (21-28); ARTERIAL BLOOD GAS MODE N/C; ARTERIAL BLOOD GAS O2 CAPACITY 19.2 mL/dL (16-24); ARTERIAL BLOOD GAS O2 CONTENT 17.1 ML/dL (15-23); ARTERIAL BLOOD GAS PH 7.35 (7.35-7.45); ARTERIAL BLOOD GAS PO2 55 mm/Hg (80-100); ARTERIAL BLOOD HGB O2 SAT 85.8 % (95.0-98.0); CARBOXYHEMOGLOBIN 2.5 % (0.5-1.5); HHB 10.7 % (0.0-5.0); METHEMOGLOBIN 1.1 % (0.0-3.0)
--- NOTE | 2016-09-13 01:48 | PN ---
DATE: 09/12/2016 SUBJECTIVE: The patient is extubated, he is still in intensive care unit. PHYSICAL EXAMINATION: VITAL SIGNS: Blood pressure 125/92, temperature 98, respiratory rate , and pulse 74. HEENT: Pupils equal, reactive to light. Normal-appearing mucosa of the conjunctivae, oropharyngeal and nasal membrane mucosa. NECK: Supple. No JVD. No carotid bruit. No lymph node, no thyromegaly. CHEST AND LUNGS: Bilateral symmetrical expansion. Good air exchange. No rales. No rhonchi. CARDIOVASCULAR: PMI not localized. S1, S2. No additional sounds. ABDOMEN: Normoactive bowel sounds, no tenderness, no organomegaly, no masses. EXTREMITIES: No cyanosis, no clubbing, no edema. CENTRAL NERVOUS SYSTEM: Alert, awake, oriented x 2. No new neurological deficits. ASSESSMENT: 1. Alcohol withdrawal seizure. 2. Dilated cardiomyopathy. 3. Hypertension. 4. Status post respiratory failure and intubation. PLAN: Continue current management and physical therapy and get the patient out of bed to [facility] and asad recommendations of cardiology and neurology. [facility] Adriana Ellison MD cc: [id number] TT: 09/13/2016 00:01:16 Confirmation # [id number] Dictation # [id number] in 09/13/2016 00:47:46
[2016-09-13 06:19] LABS: ABG ALLEN TEST YES; ARTERIAL BLOOD GAS HCO3 25.5 mmol/L (21-28); ARTERIAL BLOOD GAS MODE NRM; ARTERIAL BLOOD GAS O2 CONTENT 16.9 ML/dL (15-23); ARTERIAL BLOOD GAS PH 7.28 (7.35-7.45); ARTERIAL BLOOD GAS PO2 130 mm/Hg (80-100); ARTERIAL BLOOD HGB O2 SAT 96.6 % (95.0-98.0); CARBOXYHEMOGLOBIN 1.4 % (0.5-1.5); HHB 0.8 % (0.0-5.0); METHEMOGLOBIN 1.1 % (0.0-3.0)
[2016-09-13 06:41] LABS: HEMATOCRIT 38.4 % (35.0-51.0); MEAN CELL VOLUME 96.4 fl (80.0-94.0); MEAN CORPUSCULAR HEMOGLOBIN 30.6 pg (27.0-31.0); MEAN CORPUSCULAR HGB CONC 31.7 g/dL (33.0-37.0); RED CELL DISTRIBUTION WIDTH 15.7 % (11.5-14.5); WHITE BLOOD COUNT 6.6 K/uL (4.8-10.8)
[2016-09-13] MEDS: Insulin Regular 100 units/ml SC SCH ×4 (06:52→22:00)
[2016-09-13 06:54] LABS: CALCIUM 7.7 mg/dL (8.4-10.2)
[2016-09-13 06:56] LABS: POTASSIUM 4.8 MMOL/L (3.6-5.0)
--- NOTE | 2016-09-13 07:40 | CP.CCUPN ---
CCU Subjective - Physician Review Events Since Last Encounter (Free Text): 09/13/16 07:40 On 50% CCU Objective - Vital Signs / Intake & Output Vital Signs (Last 4 hours): Vital Signs Temp Pulse Resp BP Pulse Ox 09/13/16 06:00 70 104/80 100 09/13/16 04:00 98.1 F 80 20 98/63 L 99 Intake and Output (Last 8hrs): Intake & Output 09/12/16 09/13/16 09/13/16 22:59 06:59 14:59 Intake Total 1600 800 Output Total 1000 800 Balance 600 0 Intake: IV 1500 700 Intake, Piggyback 100 100 Output: Urine 1000 800 Urethral ([place]) 1000 800 - Physical Exam Head: Positive for: Atraumatic, Normocephalic Pupils: Positive for: PERRL. Negative for: Sluggish, Non-Reactive Extroacular Muscles: Positive for: EOMI Conjunctiva: Positive for: Normal. Negative for: Injected, Icteric Mouth: Positive for: Moist Mucous Membranes Nose (External): Positive for: Atraumatic. Negative for: Abrasion Nose (Internal): Positive for: Normal Inspection Neck: Positive for: Trachea Midline. Negative for: JVD, Lymphadenopathy, Bruit Respiratory/Chest: Positive for: Clear to Auscultation, Good Air Exchange, Decreased Breath Sounds. Negative for: Respiratory Distress, Rhonchi Cardiovascular: Positive for: Regular Rate and Rhythm, Normal S1, S2, Peripheal Pulses Present. Negative for: Murmurs Abdomen: Positive for: Normal Bowel Sounds. Negative for: Tenderness, Peritoneal Signs Upper Extremity: Positive for: Normal Inspection, NORMAL PULSES. Negative for: Cyanosis, Edema Lower Extremity: Positive for: Normal Inspection, NORMAL PULSES. Negative for: Edema, CALF TENDERNESS Neurological: Positive for: Other (Patient intubated, briefly opens eyes to loud voices) Skin: Positive for: Warm, Dry, Normal Color. Negative for: Rashes - Medications Active Medications: Active Medications Generic Name Dose Route Start Last Admin Trade Name Freq PRN Reason Stop Dose Admin Acetaminophen 650 mg 09/10/16 02:44 09/10/16 15:51 Tylenol 650mg/20.3ml Solution Ud PO 650 mg Q6 PRN Administration Fever >100.4 F Folic Acid 1 mg 09/04/16 09:00 09/12/16 08:40 Folic Acid PO 1 mg DAILY [facility] Administration Levetiracetam 500 mg/ Sodium 105 mls @ 210 mls/hr 09/08/16 12:45 09/12/16 20:52 Chloride IVPB 210 mls/hr Q12 [facility] Administration Dextrose/Sodium Chloride 1,000 mls @ 100 mls/hr 09/08/16 23:00 09/12/16 06:13 Dextrose 5%/0.45% Ns 1000 Ml IV 100 mls/hr .Q10H [facility] Administration Fluconazole 100 mls @ 100 mls/hr 09/10/16 09:00 09/12/16 08:39 Diflucan Iv 200 Mg/100 Ml Ns IVPB 100 mls/hr DAILY [facility] Administration Lidocaine HCl/Dextrose 500 mls @ 15 mls/hr 09/09/16 20:15 09/11/16 21:00 Lidocaine 2 Grams In D5w IV 15 mls/hr .Q24H [facility] Administration 1 MG/MIN Ceftaroline Fosamil 200 mg/ 100 mls @ 100 mls/hr 09/10/16 21:00 09/12/16 20:52 Sodium Chloride IVPB 100 mls/hr Q12 [facility] Administration Insulin Human Regular 0 units 09/03/16 23:00 09/13/16 06:52 Humulin R SC 3 units ACCU-CHECK [facility] Administration Protocol Lorazepam 1 mg 09/08/16 02:41 09/12/16 20:49 Ativan IVP 1 mg Q4H PRN Administration agitation/anxiety on vent Multivitamins/Minerals 1 tab 09/04/16 09:00 09/12/16 08:42 Therapeutic-M Tab PO 1 tab DAILY [facility] Administration Pantoprazole Sodium 40 mg 09/06/16 09:00 09/12/16 08:40 Protonix Inj IVP 40 mg DAILY [facility] Administration Rifaximin 550 mg 09/12/16 09:00 09/12/16 16:32 Xifaxan PO 550 mg BID [facility] Administration Thiamine HCl 100 mg 09/04/16 09:00 09/12/16 08:42 Vitamin B1 Tab PO 100 mg DAILY [facility] Administration - Patient Studies Lab Studies: Microbiology Studies 09/09/16 10:30 Gram Stain - Final Trachasp Sputum Culture - Final NORMAL ORAL KARRIE 09/07/16 07:45 Blood Culture - Final Blood-Venous NO GROWTH AFTER 5 DAYS Gram Stain - Final TEST NOT PERFORMED 09/07/16 07:45 Blood Culture - Final Blood-Venous NO GROWTH AFTER 5 DAYS Gram Stain - Final TEST NOT PERFORMED Lab Studies 09/13/16 09/13/16 09/13/16 Range/Units 06:13 06:10 05:40 WBC 6.6 (4.8-10.8) K/uL RBC 3.98 L (4.40-5.90) Mil/uL Hgb 12.2 (12.0-18.0) g/dL Hct 38.4 (35.0-51.0) % MCV 96.4 H (80.0-94.0) fl MCH 30.6 (27.0-31.0) pg MCHC 31.7 L (33.0-37.0) g/dL RDW 15.7 H (11.5-14.5) % Plt Count 66 L (130-400) K/uL pCO2 61 H (35-45) mm/Hg pO2 130 H (80-100) mm/Hg HCO3 25.5 (21-28) mmol/L ABG pH 7.28 L (7.35-7.45) ABG Total CO2 30.6 H (22-28) mmol/L ABG O2 Saturation 99.2 H (95-98) % ABG O2 Content 16.9 (15-23) ML/dL ABG Base Excess 0.7 (-2.0-3.0) mmol/L ABG Hemoglobin 12.3 (11.7-17.4) g/dL ABG Carboxyhemoglobin 1.4 (0.5-1.5) % POC ABG HHb (Measured) 0.8 (0.0-5.0) % ABG Methemoglobin 1.1 (0.0-3.0) % ABG O2 Capacity 17.0 (16-24) mL/dL Jim Test Yes A-a O2 Difference 507.0 mm/Hg Hgb O2 Saturation 96.6 (95.0-98.0) % Vent Mode Nrm FiO2 100.0 % Blood Gas Notified Time 620 Sodium 142 (132-148) mmol/l Potassium 4.8 (3.6-5.0) MMOL/L Chloride 103 (98-107) mmol/L Carbon Dioxide 28 (22-30) mmol/L Anion Gap 16 (10-20) BUN 35 H (9-20) mg/dl Creatinine 1.6 H (0.8-1.5) mg/dL Est GFR ( Amer) 55 Est GFR (Non-Af Amer) 45 POC Glucose (mg/dL) 223 H (65-110) mg/dL Random Glucose 207 H (75-110) mg/dL Calcium 7.7 L (8.4-10.2) mg/dL 09/13/16 09/12/16 09/12/16 Range/Units 00:42 22:16 15:56 WBC (4.8-10.8) K/uL RBC (4.40-5.90) Mil/uL Hgb (12.0-18.0) g/dL Hct (35.0-51.0) % MCV (80.0-94.0) fl MCH (27.0-31.0) pg MCHC (33.0-37.0) g/dL RDW (11.5-14.5) % Plt Count (130-400) K/uL pCO2 45 (35-45) mm/Hg pO2 55 L (80-100) mm/Hg HCO3 23.7 (21-28) mmol/L ABG pH 7.35 (7.35-7.45) ABG Total CO2 26.2 (22-28) mmol/L ABG O2 Saturation 88.9 L (95-98) % ABG O2 Content 17.1 (15-23) ML/dL ABG Base Excess -1.1 (-2.0-3.0) mmol/L ABG Hemoglobin 14.2 (11.7-17.4) g/dL ABG Carboxyhemoglobin 2.5 H (0.5-1.5) % POC ABG HHb (Measured) 10.7 H (0.0-5.0) % ABG Methemoglobin 1.1 (0.0-3.0) % ABG O2 Capacity 19.2 (16-24) mL/dL Jim Test Yes A-a O2 Difference 174.0 mm/Hg Hgb O2 Saturation 85.8 L (95.0-98.0) % Vent Mode N/c FiO2 40.0 % Blood Gas Notified Time 46 Sodium (132-148) mmol/l Potassium (3.6-5.0) MMOL/L Chloride (98-107) mmol/L Carbon Dioxide (22-30) mmol/L Anion Gap (10-20) BUN (9-20) mg/dl Creatinine (0.8-1.5) mg/dL Est GFR ( Amer) Est GFR (Non-Af Amer) POC Glucose (mg/dL) 205 H 122 H (65-110) mg/dL Random Glucose (75-110) mg/dL Calcium (8.4-10.2) mg/dL 09/12/16 09/12/16 Range/Units 11:06 05:00 WBC (4.8-10.8) K/uL RBC (4.40-5.90) Mil/uL Hgb (12.0-18.0) g/dL Hct (35.0-51.0) % MCV (80.0-94.0) fl MCH (27.0-31.0) pg MCHC (33.0-37.0) g/dL RDW (11.5-14.5) % Plt Count 55 L D (130-400) K/uL pCO2 (35-45) mm/Hg pO2 (80-100) mm/Hg HCO3 (21-28) mmol/L ABG pH (7.35-7.45) ABG Total CO2 (22-28) mmol/L ABG O2 Saturation (95-98) % ABG O2 Content (15-23) ML/dL ABG Base Excess (-2.0-3.0) mmol/L ABG Hemoglobin (11.7-17.4) g/dL ABG Carboxyhemoglobin (0.5-1.5) % POC ABG HHb (Measured) (0.0-5.0) % ABG Methemoglobin (0.0-3.0) % ABG O2 Capacity (16-24) mL/dL Jim Test A-a O2 Difference mm/Hg Hgb O2 Saturation (95.0-98.0) % Vent Mode FiO2 % Blood Gas Notified Time Sodium (132-148) mmol/l Potassium (3.6-5.0) MMOL/L Chloride (98-107) mmol/L Carbon Dioxide (22-30) mmol/L Anion Gap (10-20) BUN (9-20) mg/dl Creatinine (0.8-1.5) mg/dL Est GFR ( Amer) Est GFR (Non-Af Amer) POC Glucose (mg/dL) 120 H (65-110) mg/dL Random Glucose (75-110) mg/dL Calcium (8.4-10.2) mg/dL Laboratory Results - last 24 hr 09/12/16 09/12/16 09/12/16 05:00 11:06 15:56 WBC RBC Hgb Hct MCV MCH MCHC RDW Plt Count 55 L D pCO2 pO2 HCO3 ABG pH ABG Total CO2 ABG O2 Saturation ABG O2 Content ABG Base Excess ABG Hemoglobin ABG Carboxyhemoglobin POC ABG HHb (Measured) ABG Methemoglobin ABG O2 Capacity Jim Test A-a O2 Difference Hgb O2 Saturation Vent Mode FiO2 Blood Gas Notified Time Sodium Potassium Chloride Carbon Dioxide Anion Gap BUN Creatinine Est GFR ( Amer) Est GFR (Non-Af Amer) POC Glucose (mg/dL) 120 H 122 H Random Glucose Calcium 09/12/16 09/13/16 09/13/16 22:16 00:42 05:40 WBC 6.6 RBC 3.98 L Hgb 12.2 Hct 38.4 MCV 96.4 H MCH 30.6 MCHC 31.7 L RDW 15.7 H Plt Count 66 L pCO2 45 pO2 55 L HCO3 23.7 ABG pH 7.35 ABG Total CO2 26.2 ABG O2 Saturation 88.9 L ABG O2 Content 17.1 ABG Base Excess -1.1 ABG Hemoglobin 14.2 ABG Carboxyhemoglobin 2.5 H POC ABG HHb (Measured) 10.7 H ABG Methemoglobin 1.1 ABG O2 Capacity 19.2 Jim Test Yes A-a O2 Difference 174.0 Hgb O2 Saturation 85.8 L Vent Mode N/c FiO2 40.0 Blood Gas Notified Time 46 Sodium 142 Potassium 4.8 Chloride 103 Carbon Dioxide 28 Anion Gap 16 BUN 35 H Creatinine 1.6 H Est GFR ( Amer) 55 Est GFR (Non-Af Amer) 45 POC Glucose (mg/dL) 205 H Random Glucose 207 H Calcium 7.7 L 09/13/16 09/13/16 06:10 06:13 WBC RBC Hgb Hct MCV MCH MCHC RDW Plt Count pCO2 61 H pO2 130 H HCO3 25.5 ABG pH 7.28 L ABG Total CO2 30.6 H ABG O2 Saturation 99.2 H ABG O2 Content 16.9 ABG Base Excess 0.7 ABG Hemoglobin 12.3 ABG Carboxyhemoglobin 1.4 POC ABG HHb (Measured) 0.8 ABG Methemoglobin 1.1 ABG O2 Capacity 17.0 Jim Test Yes A-a O2 Difference 507.0 Hgb O2 Saturation 96.6 Vent Mode Nrm FiO2 100.0 Blood Gas Notified Time 620 Sodium Potassium Chloride Carbon Dioxide Anion Gap BUN Creatinine Est GFR ( Amer) Est GFR (Non-Af Amer) POC Glucose (mg/dL) 223 H Random Glucose Calcium Fingerstick Blood Sugar Results: 223 Critical Care Progress Note - Nutrition Nutrition: Nutrition Category Date Time Status Dysphagia/Modified Consistency Diet [DIET] Diets 09/12/16 Dinner Active Assessment/Plan (1) Acute respiratory failure with hypercapnia Current Visit: Yes Status: Acute Comment: IV antibiotics with IV Vanco and Zosyn Aggressive Pulmonary toilets, duonebs q4h. Wean off Fio2 Daily SAT/SBT GI/DVT prophylaxis (2) Altered mental status Current Visit: Yes Status: Acute Priority: High Comment: Multifacrorial, Toxic/Metabolic encephalopathy frequent neuro-check, Seizure precautions. Head CT scan and MRI on admission negative (3) Hepatic encephalopathy Current Visit: Yes Status: Acute Comment: Lactulose 20 gm PO BID Rifaximin 550 mg PO BID (4) Alcohol withdrawal seizure Current Visit: Yes Status: Acute Comment: Seizure free since admission (5) Aspiration pneumonia Current Visit: Yes Status: Acute Priority: High Comment: Vancomycin 750 mg IVPB Q12 [facility] Piperacillin Sod/Tazobactam 2.25 gm IVPB Q8 [facility] (6) Thrombocytopenia Current Visit: Yes Status: Acute Comment: No signs of active bleed at this time (7) Congestive cardiomyopathy Current Visit: Yes Status: Chronic Priority: High
--- NOTE | 2016-09-13 08:28 | CP.PCM.PN ---
Subjective - Date & Time of Evaluation Date of Evaluation: 09/13/16 Time of Evaluation: 08:24 - Subjective Subjective: Interim events reviewed. Had been on nasal canula during daytime, but became restless at night with dropping SpO2. Switched to NRM initially, then changed to VentiMask 50% when hypercarbia/ acidosis developed. A chest x-ray this morning reveals a poor inspiratory effort, but no consolidations or effusions are seen. WBC and Hgb are both maintained and platelets remain low. Renal function compromised, but good urine output noted. Obtunded on exam, not following any commands. Appears to be breathing comfortably without paradoxical respiratory motion. Neck is supple and trachea midline. No dullness on percussion of the anterior chest wall. No subcut emphysema. Breath sounds are present bilaterally with coarse rhonchi in the right lower lobe. Few rhonchi are also present in the left lung, but no wheezing is heard in either lung. Restrict sedation as much as possible. Switch to high-flow nasal canula with heated humidification @ 50% O2 initially. Attempt to stimulate and cough as much as possible. Beta adrenergics are being held because of seizure risk. Objective - Vital Signs/Intake and Output Vital Signs (last 24 hours): Temp Pulse Resp BP Pulse Ox 97.7 F 71 21 101/64 95 09/13/16 08:00 09/13/16 08:00 09/13/16 08:00 09/13/16 08:00 09/13/16 08:00 Intake and Output: 09/12/16 09/13/16 23:59 11:59 Intake Total 1600 800 Output Total 1000 800 Balance 600 0 - Medications Medications: Current Medications Acetaminophen (Tylenol 650mg/20.3ml Solution Ud) 650 mg PO Q6 PRN PRN Reason: Fever >100.4 F Last Admin: 09/10/16 15:51 Dose: 650 mg Folic Acid (Folic Acid) 1 mg PO DAILY [facility] Last Admin: 09/12/16 08:40 Dose: 1 mg Levetiracetam 500 mg/ Sodium (Chloride) 105 mls @ 210 mls/hr IVPB Q12 [facility] Last Admin: 09/12/16 20:52 Dose: 210 mls/hr Dextrose/Sodium Chloride (Dextrose 5%/0.45% Ns 1000 Ml) 1,000 mls @ 100 mls/hr IV .Q10H [facility] Last Admin: 09/12/16 06:13 Dose: 100 mls/hr Fluconazole (Diflucan Iv 200 Mg/100 Ml Ns) 100 mls @ 100 mls/hr IVPB DAILY [facility] Last Admin: 09/12/16 08:39 Dose: 100 mls/hr Lidocaine HCl/Dextrose (Lidocaine 2 Grams In D5w) 500 mls @ 15 mls/hr IV .Q24H [facility] PRN Reason: 1 MG/MIN Last Admin: 09/11/16 21:00 Dose: 15 mls/hr Ceftaroline Fosamil 200 mg/ (Sodium Chloride) 100 mls @ 100 mls/hr IVPB Q12 [facility] Last Admin: 09/12/16 20:52 Dose: 100 mls/hr Insulin Human Regular (Humulin R) 0 units SC ACCU-CHECK [facility] PRN Reason: Protocol Last Admin: 09/13/16 06:52 Dose: 3 units Lorazepam (Ativan) 1 mg IVP Q4H PRN PRN Reason: agitation/anxiety on vent Last Admin: 09/12/16 20:49 Dose: 1 mg Multivitamins/Minerals (Therapeutic-M Tab) 1 tab PO DAILY [facility] Last Admin: 09/12/16 08:42 Dose: 1 tab Pantoprazole Sodium (Protonix Inj) 40 mg IVP DAILY [facility] Last Admin: 09/12/16 08:40 Dose: 40 mg Rifaximin (Xifaxan) 550 mg PO BID [facility] Last Admin: 09/12/16 16:32 Dose: 550 mg Thiamine HCl (Vitamin B1 Tab) 100 mg PO DAILY [facility] Last Admin: 09/12/16 08:42 Dose: 100 mg - Labs Labs: 09/13/16 05:40 09/13/16 05:40 PT 13.8 SECONDS (9.6-11.2) H 09/11/16 05:30 INR 1.33 (0.92-1.08) H 09/11/16 05:30 APTT 24.3 SECONDS (23.3-32.5) 09/06/16 04:25 Assessment and Plan (1) Aspiration pneumonia Status: Acute (2) Acute respiratory failure with hypoxia and hypercapnia Status: Acute (3) Pleural effusion Status: Acute (4) Congestive cardiomyopathy Status: Chronic (5) Altered mental status Status: Acute
--- NOTE | 2016-09-13 08:38 | RAD ---
HISTORY: pneumonia COMPARISON: No prior. FINDINGS: LUNGS: No active pulmonary disease. PLEURA: No significant pleural effusion identified, no pneumothorax apparent. CARDIOVASCULAR: Moderate cardiomegaly OSSEOUS STRUCTURES: No significant abnormalities. VISUALIZED UPPER ABDOMEN: Normal. OTHER FINDINGS: None. IMPRESSION: No active disease.
--- NOTE | 2016-09-13 09:29 | CP.PCM.PN ---
Subjective - Date & Time of Evaluation Date of Evaluation: 09/13/16 Time of Evaluation: 09:15 - Subjective Subjective: Developed restlessness after developing hypercarbia, further aggrevated by Ativan given for restlessness Now drowsy Sinus rhythm with little V ectopy BP 110/70 mm Hg Pulse Ox 97 % with O2 supplement with N/C Steadily declining Creatinine attests to improving tissue perfusion Discussed with Drs. Dominguez and daniel Objective - Vital Signs/Intake and Output Vital Signs (last 24 hours): Temp Pulse Resp BP Pulse Ox 97.7 F 71 21 101/64 95 09/13/16 08:00 09/13/16 08:00 09/13/16 08:55 09/13/16 08:00 09/13/16 08:00 Intake and Output: 09/13/16 09/13/16 06:59 18:59 Intake Total 1200 Output Total 800 Balance 400 - Medications Medications: Current Medications Acetaminophen (Tylenol 650mg/20.3ml Solution Ud) 650 mg PO Q6 PRN PRN Reason: Fever >100.4 F Last Admin: 09/10/16 15:51 Dose: 650 mg Folic Acid (Folic Acid) 1 mg PO DAILY [facility] Last Admin: 09/12/16 08:40 Dose: 1 mg Levetiracetam 500 mg/ Sodium (Chloride) 105 mls @ 210 mls/hr IVPB Q12 [facility] Last Admin: 09/12/16 20:52 Dose: 210 mls/hr Dextrose/Sodium Chloride (Dextrose 5%/0.45% Ns 1000 Ml) 1,000 mls @ 100 mls/hr IV .Q10H [facility] Last Admin: 09/12/16 06:13 Dose: 100 mls/hr Fluconazole (Diflucan Iv 200 Mg/100 Ml Ns) 100 mls @ 100 mls/hr IVPB DAILY [facility] Last Admin: 09/12/16 08:39 Dose: 100 mls/hr Lidocaine HCl/Dextrose (Lidocaine 2 Grams In D5w) 500 mls @ 15 mls/hr IV .Q24H [facility] PRN Reason: 1 MG/MIN Last Admin: 09/11/16 21:00 Dose: 15 mls/hr Ceftaroline Fosamil 200 mg/ (Sodium Chloride) 100 mls @ 100 mls/hr IVPB Q12 [facility] Last Admin: 09/12/16 20:52 Dose: 100 mls/hr Insulin Human Regular (Humulin R) 0 units SC ACCU-CHECK [facility] PRN Reason: Protocol Last Admin: 09/13/16 06:52 Dose: 3 units Lorazepam (Ativan) 1 mg IVP Q4H PRN PRN Reason: agitation/anxiety on vent Last Admin: 09/12/16 20:49 Dose: 1 mg Multivitamins/Minerals (Therapeutic-M Tab) 1 tab PO DAILY [facility] Last Admin: 09/12/16 08:42 Dose: 1 tab Pantoprazole Sodium (Protonix Inj) 40 mg IVP DAILY [facility] Last Admin: 09/12/16 08:40 Dose: 40 mg Rifaximin (Xifaxan) 550 mg PO BID [facility] Last Admin: 09/12/16 16:32 Dose: 550 mg Thiamine HCl (Vitamin B1 Tab) 100 mg PO DAILY [facility] Last Admin: 09/12/16 08:42 Dose: 100 mg - Labs Labs: 09/13/16 05:40 09/13/16 05:40 PT 13.8 SECONDS (9.6-11.2) H 09/11/16 05:30 INR 1.33 (0.92-1.08) H 09/11/16 05:30 APTT 24.3 SECONDS (23.3-32.5) 09/06/16 04:25
[2016-09-13] MEDS: Fluconazole IV 200mg/100 ml NS 100 ML IVPB SCH (09:36)
[2016-09-13] MEDS: levETIRAcetam 500 MG in Sodium Chloride 0.9% 100 ML IVPB SCH ×2 (09:36→21:00)
[2016-09-13] MEDS: Multivitamin With Minerals Tab PO SCH (09:38)
--- NOTE | 2016-09-13 10:07 | CP.CCUPN ---
<Merrill Leyva T - Last Filed: 09/13/16 11:03> CCU Subjective - Physician Review Subjective (Free Text): Pt seen and examined at bedside in the ICU. Pt is currently receiving high flow o2 and he's actively awake, watching TV with his at bedside. Pt states he mildly short of breath, yet he is able to have a full conversation albeit with a quiet tone. Pt also states that the sternal area of his chest chronically aches. He denies f/c/n/v/d, palpitations, abdominal pain, or other myalgias. CCU Objective - Vital Signs / Intake & Output Vital Signs (Last 4 hours): Vital Signs Temp Pulse Resp BP Pulse Ox 09/13/16 10:00 70 22 105/77 97 09/13/16 08:55 21 09/13/16 08:00 97.7 F 71 21 101/64 95 Intake and Output (Last 8hrs): Intake & Output 09/12/16 09/13/16 09/13/16 22:59 06:59 14:59 Intake Total 1600 800 300 Output Total 1000 800 Balance 600 0 300 Intake: IV 1500 700 Intake, Piggyback 100 100 300 Output: Urine 1000 800 Urethral ([place]) 1000 800 - Physical Exam Head: Positive for: Atraumatic, Normocephalic Pupils: Positive for: PERRL. Negative for: Sluggish, Non-Reactive Extroacular Muscles: Positive for: EOMI Conjunctiva: Positive for: Normal. Negative for: Injected, Icteric Mouth: Positive for: Dry Neck: Positive for: Normal Range of Motion, Trachea Midline. Negative for: JVD , Lymphadenopathy, Bruit Respiratory/Chest: Positive for: Good Air Exchange, Decreased Breath Sounds, Rhonchi (minimally b/l lower lobes). Negative for: Respiratory Distress Cardiovascular: Positive for: Regular Rate and Rhythm, Normal S1, S2, Peripheal Pulses Present. Negative for: Murmurs Abdomen: Positive for: Normal Bowel Sounds. Negative for: Tenderness, Peritoneal Signs Upper Extremity: Positive for: Normal Inspection, NORMAL PULSES. Negative for: Cyanosis, Edema Lower Extremity: Positive for: Normal Inspection, NORMAL PULSES. Negative for: Edema, CALF TENDERNESS Neurological: Positive for: GCS=15, CN II-XII Intact, Speech Normal (but low tone, quiet) Skin: Positive for: Warm, Dry, Normal Color. Negative for: Rashes Psychiatric: Positive for: Alert, Oriented x 3 - Medications Active Medications: Active Medications Generic Name Dose Route Start Last Admin Trade Name Andrade PRN Reason Stop Dose Admin Acetaminophen 650 mg 09/10/16 02:44 09/10/16 15:51 Tylenol 650mg/20.3ml Solution Ud PO 650 mg Q6 PRN Administration Fever >100.4 F Folic Acid 1 mg 09/04/16 09:00 09/13/16 09:36 Folic Acid PO Not Given DAILY [facility] Levetiracetam 500 mg/ Sodium 105 mls @ 210 mls/hr 09/08/16 12:45 09/13/16 09:36 Chloride IVPB 210 mls/hr Q12 [facility] Administration Dextrose/Sodium Chloride 1,000 mls @ 100 mls/hr 09/08/16 23:00 09/12/16 06:13 Dextrose 5%/0.45% Ns 1000 Ml IV 100 mls/hr .Q10H [facility] Administration Fluconazole 100 mls @ 100 mls/hr 09/10/16 09:00 09/13/16 09:36 Diflucan Iv 200 Mg/100 Ml Ns IVPB 100 mls/hr DAILY [facility] Administration Lidocaine HCl/Dextrose 500 mls @ 15 mls/hr 09/09/16 20:15 09/11/16 21:00 Lidocaine 2 Grams In D5w IV 15 mls/hr .Q24H [facility] Administration 1 MG/MIN Ceftaroline Fosamil 200 mg/ 100 mls @ 100 mls/hr 09/10/16 21:00 09/13/16 09:37 Sodium Chloride IVPB 100 mls/hr Q12 [facility] Administration Insulin Human Regular 0 units 09/03/16 23:00 09/13/16 06:52 Humulin R SC 3 units ACCU-CHECK [facility] Administration Protocol Multivitamins/Minerals 1 tab 09/04/16 09:00 09/13/16 09:38 Therapeutic-M Tab PO Not Given DAILY [facility] Pantoprazole Sodium 40 mg 09/06/16 09:00 09/13/16 09:37 Protonix Inj IVP 40 mg DAILY [facility] Administration Rifaximin 550 mg 09/12/16 09:00 09/13/16 09:38 Xifaxan PO Not Given BID [facility] Thiamine HCl 100 mg 09/04/16 09:00 09/13/16 09:38 Vitamin B1 Tab PO Not Given DAILY [facility] - Patient Studies Lab Studies: Microbiology Studies 09/09/16 10:30 Gram Stain - Final Trachasp Sputum Culture - Final NORMAL ORAL KARRIE 09/07/16 07:45 Blood Culture - Final Blood-Venous NO GROWTH AFTER 5 DAYS Gram Stain - Final TEST NOT PERFORMED 09/07/16 07:45 Blood Culture - Final Blood-Venous NO GROWTH AFTER 5 DAYS Gram Stain - Final TEST NOT PERFORMED Lab Studies 09/13/16 09/13/16 09/13/16 Range/Units 06:13 06:10 05:40 WBC 6.6 (4.8-10.8) K/uL RBC 3.98 L (4.40-5.90) Mil/uL Hgb 12.2 (12.0-18.0) g/dL Hct 38.4 (35.0-51.0) % MCV 96.4 H (80.0-94.0) fl MCH 30.6 (27.0-31.0) pg MCHC 31.7 L (33.0-37.0) g/dL RDW 15.7 H (11.5-14.5) % Plt Count 66 L (130-400) K/uL pCO2 61 H (35-45) mm/Hg pO2 130 H (80-100) mm/Hg HCO3 25.5 (21-28) mmol/L ABG pH 7.28 L (7.35-7.45) ABG Total CO2 30.6 H (22-28) mmol/L ABG O2 Saturation 99.2 H (95-98) % ABG O2 Content 16.9 (15-23) ML/dL ABG Base Excess 0.7 (-2.0-3.0) mmol/L ABG Hemoglobin 12.3 (11.7-17.4) g/dL ABG Carboxyhemoglobin 1.4 (0.5-1.5) % POC ABG HHb (Measured) 0.8 (0.0-5.0) % ABG Methemoglobin 1.1 (0.0-3.0) % ABG O2 Capacity 17.0 (16-24) mL/dL Jim Test Yes A-a O2 Difference 507.0 mm/Hg Hgb O2 Saturation 96.6 (95.0-98.0) % Vent Mode Nrm FiO2 100.0 % Blood Gas Notified Time 620 Sodium 142 (132-148) mmol/l Potassium 4.8 (3.6-5.0) MMOL/L Chloride 103 (98-107) mmol/L Carbon Dioxide 28 (22-30) mmol/L Anion Gap 16 (10-20) BUN 35 H (9-20) mg/dl Creatinine 1.6 H (0.8-1.5) mg/dL Est GFR ( Amer) 55 Est GFR (Non-Af Amer) 45 POC Glucose (mg/dL) 223 H (65-110) mg/dL Random Glucose 207 H (75-110) mg/dL Calcium 7.7 L (8.4-10.2) mg/dL 09/13/16 09/12/16 09/12/16 Range/Units 00:42 22:16 15:56 WBC (4.8-10.8) K/uL RBC (4.40-5.90) Mil/uL Hgb (12.0-18.0) g/dL Hct (35.0-51.0) % MCV (80.0-94.0) fl MCH (27.0-31.0) pg MCHC (33.0-37.0) g/dL RDW (11.5-14.5) % Plt Count (130-400) K/uL pCO2 45 (35-45) mm/Hg pO2 55 L (80-100) mm/Hg HCO3 23.7 (21-28) mmol/L ABG pH 7.35 (7.35-7.45) ABG Total CO2 26.2 (22-28) mmol/L ABG O2 Saturation 88.9 L (95-98) % ABG O2 Content 17.1 (15-23) ML/dL ABG Base Excess -1.1 (-2.0-3.0) mmol/L ABG Hemoglobin 14.2 (11.7-17.4) g/dL ABG Carboxyhemoglobin 2.5 H (0.5-1.5) % POC ABG HHb (Measured) 10.7 H (0.0-5.0) % ABG Methemoglobin 1.1 (0.0-3.0) % ABG O2 Capacity 19.2 (16-24) mL/dL Jim Test Yes A-a O2 Difference 174.0 mm/Hg Hgb O2 Saturation 85.8 L (95.0-98.0) % Vent Mode N/c FiO2 40.0 % Blood Gas Notified Time 46 Sodium (132-148) mmol/l Potassium (3.6-5.0) MMOL/L Chloride (98-107) mmol/L Carbon Dioxide (22-30) mmol/L Anion Gap (10-20) BUN (9-20) mg/dl Creatinine (0.8-1.5) mg/dL Est GFR ( Amer) Est GFR (Non-Af Amer) POC Glucose (mg/dL) 205 H 122 H (65-110) mg/dL Random Glucose (75-110) mg/dL Calcium (8.4-10.2) mg/dL 09/12/16 Range/Units 11:06 WBC (4.8-10.8) K/uL RBC (4.40-5.90) Mil/uL Hgb (12.0-18.0) g/dL Hct (35.0-51.0) % MCV (80.0-94.0) fl MCH (27.0-31.0) pg MCHC (33.0-37.0) g/dL RDW (11.5-14.5) % Plt Count (130-400) K/uL pCO2 (35-45) mm/Hg pO2 (80-100) mm/Hg HCO3 (21-28) mmol/L ABG pH (7.35-7.45) ABG Total CO2 (22-28) mmol/L ABG O2 Saturation (95-98) % ABG O2 Content (15-23) ML/dL ABG Base Excess (-2.0-3.0) mmol/L ABG Hemoglobin (11.7-17.4) g/dL ABG Carboxyhemoglobin (0.5-1.5) % POC ABG HHb (Measured) (0.0-5.0) % ABG Methemoglobin (0.0-3.0) % ABG O2 Capacity (16-24) mL/dL Jim Test A-a O2 Difference mm/Hg Hgb O2 Saturation (95.0-98.0) % Vent Mode FiO2 % Blood Gas Notified Time Sodium (132-148) mmol/l Potassium (3.6-5.0) MMOL/L Chloride (98-107) mmol/L Carbon Dioxide (22-30) mmol/L Anion Gap (10-20) BUN (9-20) mg/dl Creatinine (0.8-1.5) mg/dL Est GFR ( Amer) Est GFR (Non-Af Amer) POC Glucose (mg/dL) 120 H (65-110) mg/dL Random Glucose (75-110) mg/dL Calcium (8.4-10.2) mg/dL Laboratory Results - last 24 hr 09/12/16 09/12/16 09/12/16 11:06 15:56 22:16 WBC RBC Hgb Hct MCV MCH MCHC RDW Plt Count pCO2 pO2 HCO3 ABG pH ABG Total CO2 ABG O2 Saturation ABG O2 Content ABG Base Excess ABG Hemoglobin ABG Carboxyhemoglobin POC ABG HHb (Measured) ABG Methemoglobin ABG O2 Capacity Jim Test A-a O2 Difference Hgb O2 Saturation Vent Mode FiO2 Blood Gas Notified Time Sodium Potassium Chloride Carbon Dioxide Anion Gap BUN Creatinine Est GFR ( Amer) Est GFR (Non-Af Amer) POC Glucose (mg/dL) 120 H 122 H 205 H Random Glucose Calcium 09/13/16 09/13/16 09/13/16 00:42 05:40 06:10 WBC 6.6 RBC 3.98 L Hgb 12.2 Hct 38.4 MCV 96.4 H MCH 30.6 MCHC 31.7 L RDW 15.7 H Plt Count 66 L pCO2 45 61 H pO2 55 L 130 H HCO3 23.7 25.5 ABG pH 7.35 7.28 L ABG Total CO2 26.2 30.6 H ABG O2 Saturation 88.9 L 99.2 H ABG O2 Content 17.1 16.9 ABG Base Excess -1.1 0.7 ABG Hemoglobin 14.2 12.3 ABG Carboxyhemoglobin 2.5 H 1.4 POC ABG HHb (Measured) 10.7 H 0.8 ABG Methemoglobin 1.1 1.1 ABG O2 Capacity 19.2 17.0 Jim Test Yes Yes A-a O2 Difference 174.0 507.0 Hgb O2 Saturation 85.8 L 96.6 Vent Mode N/c Nrm FiO2 40.0 100.0 Blood Gas Notified Time 46 620 Sodium 142 Potassium 4.8 Chloride 103 Carbon Dioxide 28 Anion Gap 16 BUN 35 H Creatinine 1.6 H Est GFR ( Amer) 55 Est GFR (Non-Af Amer) 45 POC Glucose (mg/dL) Random Glucose 207 H Calcium 7.7 L 09/13/16 06:13 WBC RBC Hgb Hct MCV MCH MCHC RDW Plt Count pCO2 pO2 HCO3 ABG pH ABG Total CO2 ABG O2 Saturation ABG O2 Content ABG Base Excess ABG Hemoglobin ABG Carboxyhemoglobin POC ABG HHb (Measured) ABG Methemoglobin ABG O2 Capacity Jim Test A-a O2 Difference Hgb O2 Saturation Vent Mode FiO2 Blood Gas Notified Time Sodium Potassium Chloride Carbon Dioxide Anion Gap BUN Creatinine Est GFR ( Amer) Est GFR (Non-Af Amer) POC Glucose (mg/dL) 223 H Random Glucose Calcium Fingerstick Blood Sugar Results: 223 Review of Systems - Review of Systems Review of Systems: see HPI Critical Care Progress Note - Nutrition Nutrition: Nutrition Category Date Time Status Dysphagia/Modified Consistency Diet [DIET] Diets 09/12/16 Dinner Active Assessment/Plan - Assessment and Plan (Free Text) Plan: 51 yo M w PMHx of HTN, Crohn's, and etoh dependency was admitted for seizures and etoh withdrawal, is currently intubated w sedation and minimally responsive to loud voices 1) Acute respiratory failure with hypercapnia -Hypercapnia had improved as of yesterday, but worsened again yesterday afternoon/evening -Pt had been switched from NC to NRB yesterday following drop of o2%, but is now on VentiMask 50% -This morning's ABG shows another increase in pCO2 and pH, 61 and 7.28, respectively -Teflaro 200mg IVPB Q12H -Fluconazole 200mg IVPB Daily -f/u Respiratory function -f/u ABG 3) Altered mental status -Greatly improved -Multifactorial; was possibly seizure disorder VS hypercapnia VS etoh withdrawal VS yeast infection -Neurology Onboard -Keppra 500mg BID -CT Head (09/09): wnl, no acute processes -f/u CT Head from today (09/09) 4) Congestive Cardiomyopathy -Likely etoh induced -LV Systolic Fcn severely impaired, EF of 15-20% -Severe Mitral Regurg, Moderate Tricuspid Regurg -Lidocaine 1mg/min -D5 1/2NS @ 100cc/hr -f/u Vitals 5) Acute Renal Failure -Mildly Improving -BUN/Cr: 35/1.6 -D5 1/2NS @ 100cc/hr -f/u labs -f/u I/O's 6) Hepatic encephalopathy -Rifaximin 550 mg PO BID, as per GI 7) Aspiration pneumonia -Teflaro 200mg IVPB Q12H 8) Constipation -Lactulose 20 gm PO Daily 9) Thrombocytopenia -No signs of active bleed at this time <Diomedes Dominguez - Last Filed: 09/13/16 11:43> CCU Objective - Vital Signs / Intake & Output Vital Signs (Last 4 hours): Vital Signs Temp Pulse Resp BP Pulse Ox 09/13/16 10:00 70 22 105/77 97 09/13/16 08:55 21 09/13/16 08:00 97.7 F 71 21 101/64 95 Intake and Output (Last 8hrs): Intake & Output 09/12/16 09/13/16 09/13/16 22:59 06:59 14:59 Intake Total 1600 800 300 Output Total 1000 800 Balance 600 0 300 Intake: IV 1500 700 Intake, Piggyback 100 100 300 Output: Urine 1000 800 Urethral ([place]) 1000 800 - Medications Active Medications: Active Medications Generic Name Dose Route Start Last Admin Trade Name Freq PRN Reason Stop Dose Admin Acetaminophen 650 mg 09/10/16 02:44 09/10/16 15:51 Tylenol 650mg/20.3ml Solution Ud PO 650 mg Q6 PRN Administration Fever >100.4 F Folic Acid 1 mg 09/04/16 09:00 09/13/16 09:36 Folic Acid PO Not Given DAILY [facility] Levetiracetam 500 mg/ Sodium 105 mls @ 210 mls/hr 09/08/16 12:45 09/13/16 09:36 Chloride IVPB 210 mls/hr Q12 [facility] Administration Dextrose/Sodium Chloride 1,000 mls @ 100 mls/hr 09/08/16 23:00 09/12/16 06:13 Dextrose 5%/0.45% Ns 1000 Ml IV 100 mls/hr .Q10H [facility] Administration Fluconazole 100 mls @ 100 mls/hr 09/10/16 09:00 09/13/16 09:36 Diflucan Iv 200 Mg/100 Ml Ns IVPB 100 mls/hr DAILY [facility] Administration Lidocaine HCl/Dextrose 500 mls @ 15 mls/hr 09/09/16 20:15 09/11/16 21:00 Lidocaine 2 Grams In D5w IV 15 mls/hr .Q24H [facility] Administration 1 MG/MIN Ceftaroline Fosamil 200 mg/ 100 mls @ 100 mls/hr 09/10/16 21:00 09/13/16 09:37 Sodium Chloride IVPB 100 mls/hr Q12 [facility] Administration Insulin Human Regular 0 units 09/03/16 23:00 09/13/16 11:02 Humulin R SC 2 units ACCU-CHECK [facility] Administration Protocol Lactulose 20 gm 09/13/16 11:25 Enulose PO DAILY [facility] Multivitamins/Minerals 1 tab 09/04/16 09:00 09/13/16 09:38 Therapeutic-M Tab PO Not Given DAILY [facility] Pantoprazole Sodium 40 mg 09/06/16 09:00 09/13/16 09:37 Protonix Inj IVP 40 mg DAILY [facility] Administration Rifaximin 550 mg 09/12/16 09:00 09/13/16 09:38 Xifaxan PO Not Given BID [facility] Thiamine HCl 100 mg 09/04/16 09:00 09/13/16 09:38 Vitamin B1 Tab PO Not Given DAILY [facility] - Patient Studies Lab Studies: Microbiology Studies 09/09/16 10:30 Gram Stain - Final Trachasp Sputum Culture - Final NORMAL ORAL KARRIE 09/07/16 07:45 Blood Culture - Final Blood-Venous NO GROWTH AFTER 5 DAYS Gram Stain - Final TEST NOT PERFORMED 09/07/16 07:45 Blood Culture - Final Blood-Venous NO GROWTH AFTER 5 DAYS Gram Stain - Final TEST NOT PERFORMED Lab Studies 09/13/16 09/13/16 09/13/16 Range/Units 06:13 06:10 05:40 WBC 6.6 (4.8-10.8) K/uL RBC 3.98 L (4.40-5.90) Mil/uL Hgb 12.2 (12.0-18.0) g/dL Hct 38.4 (35.0-51.0) % MCV 96.4 H (80.0-94.0) fl MCH 30.6 (27.0-31.0) pg MCHC 31.7 L (33.0-37.0) g/dL RDW 15.7 H (11.5-14.5) % Plt Count 66 L (130-400) K/uL pCO2 61 H (35-45) mm/Hg pO2 130 H (80-100) mm/Hg HCO3 25.5 (21-28) mmol/L ABG pH 7.28 L (7.35-7.45) ABG Total CO2 30.6 H (22-28) mmol/L ABG O2 Saturation 99.2 H (95-98) % ABG O2 Content 16.9 (15-23) ML/dL ABG Base Excess 0.7 (-2.0-3.0) mmol/L ABG Hemoglobin 12.3 (11.7-17.4) g/dL ABG Carboxyhemoglobin 1.4 (0.5-1.5) % POC ABG HHb (Measured) 0.8 (0.0-5.0) % ABG Methemoglobin 1.1 (0.0-3.0) % ABG O2 Capacity 17.0 (16-24) mL/dL Jim Test Yes A-a O2 Difference 507.0 mm/Hg Hgb O2 Saturation 96.6 (95.0-98.0) % Vent Mode Nrm FiO2 100.0 % Blood Gas Notified Time 620 Sodium 142 (132-148) mmol/l Potassium 4.8 (3.6-5.0) MMOL/L Chloride 103 (98-107) mmol/L Carbon Dioxide 28 (22-30) mmol/L Anion Gap 16 (10-20) BUN 35 H (9-20) mg/dl Creatinine 1.6 H (0.8-1.5) mg/dL Est GFR ( Amer) 55 Est GFR (Non-Af Amer) 45 POC Glucose (mg/dL) 223 H (65-110) mg/dL Random Glucose 207 H (75-110) mg/dL Calcium 7.7 L (8.4-10.2) mg/dL 09/13/16 09/12/16 09/12/16 Range/Units 00:42 22:16 15:56 WBC (4.8-10.8) K/uL RBC (4.40-5.90) Mil/uL Hgb (12.0-18.0) g/dL Hct (35.0-51.0) % MCV (80.0-94.0) fl MCH (27.0-31.0) pg MCHC (33.0-37.0) g/dL RDW (11.5-14.5) % Plt Count (130-400) K/uL pCO2 45 (35-45) mm/Hg pO2 55 L (80-100) mm/Hg HCO3 23.7 (21-28) mmol/L ABG pH 7.35 (7.35-7.45) ABG Total CO2 26.2 (22-28) mmol/L ABG O2 Saturation 88.9 L (95-98) % ABG O2 Content 17.1 (15-23) ML/dL ABG Base Excess -1.1 (-2.0-3.0) mmol/L ABG Hemoglobin 14.2 (11.7-17.4) g/dL ABG Carboxyhemoglobin 2.5 H (0.5-1.5) % POC ABG HHb (Measured) 10.7 H (0.0-5.0) % ABG Methemoglobin 1.1 (0.0-3.0) % ABG O2 Capacity 19.2 (16-24) mL/dL Jim Test Yes A-a O2 Difference 174.0 mm/Hg Hgb O2 Saturation 85.8 L (95.0-98.0) % Vent Mode N/c FiO2 40.0 % Blood Gas Notified Time 46 Sodium (132-148) mmol/l Potassium (3.6-5.0) MMOL/L Chloride (98-107) mmol/L Carbon Dioxide (22-30) mmol/L Anion Gap (10-20) BUN (9-20) mg/dl Creatinine (0.8-1.5) mg/dL Est GFR ( Amer) Est GFR (Non-Af Amer) POC Glucose (mg/dL) 205 H 122 H (65-110) mg/dL Random Glucose (75-110) mg/dL Calcium (8.4-10.2) mg/dL 09/12/16 Range/Units 11:06 WBC (4.8-10.8) K/uL RBC (4.40-5.90) Mil/uL Hgb (12.0-18.0) g/dL Hct (35.0-51.0) % MCV (80.0-94.0) fl MCH (27.0-31.0) pg MCHC (33.0-37.0) g/dL RDW (11.5-14.5) % Plt Count (130-400) K/uL pCO2 (35-45) mm/Hg pO2 (80-100) mm/Hg HCO3 (21-28) mmol/L ABG pH (7.35-7.45) ABG Total CO2 (22-28) mmol/L ABG O2 Saturation (95-98) % ABG O2 Content (15-23) ML/dL ABG Base Excess (-2.0-3.0) mmol/L ABG Hemoglobin (11.7-17.4) g/dL ABG Carboxyhemoglobin (0.5-1.5) % POC ABG HHb (Measured) (0.0-5.0) % ABG Methemoglobin (0.0-3.0) % ABG O2 Capacity (16-24) mL/dL Jim Test A-a O2 Difference mm/Hg Hgb O2 Saturation (95.0-98.0) % Vent Mode FiO2 % Blood Gas Notified Time Sodium (132-148) mmol/l Potassium (3.6-5.0) MMOL/L Chloride (98-107) mmol/L Carbon Dioxide (22-30) mmol/L Anion Gap (10-20) BUN (9-20) mg/dl Creatinine (0.8-1.5) mg/dL Est GFR ( Amer) Est GFR (Non-Af Amer) POC Glucose (mg/dL) 120 H (65-110) mg/dL Random Glucose (75-110) mg/dL Calcium (8.4-10.2) mg/dL Laboratory Results - last 24 hr 09/12/16 09/12/16 09/12/16 11:06 15:56 22:16 WBC RBC Hgb Hct MCV MCH MCHC RDW Plt Count pCO2 pO2 HCO3 ABG pH ABG Total CO2 ABG O2 Saturation ABG O2 Content ABG Base Excess ABG Hemoglobin ABG Carboxyhemoglobin POC ABG HHb (Measured) ABG Methemoglobin ABG O2 Capacity Jim Test A-a O2 Difference Hgb O2 Saturation Vent Mode FiO2 Blood Gas Notified Time Sodium Potassium Chloride Carbon Dioxide Anion Gap BUN Creatinine Est GFR ( Amer) Est GFR (Non-Af Amer) POC Glucose (mg/dL) 120 H 122 H 205 H Random Glucose Calcium 09/13/16 09/13/16 09/13/16 00:42 05:40 06:10 WBC 6.6 RBC 3.98 L Hgb 12.2 Hct 38.4 MCV 96.4 H MCH 30.6 MCHC 31.7 L RDW 15.7 H Plt Count 66 L pCO2 45 61 H pO2 55 L 130 H HCO3 23.7 25.5 ABG pH 7.35 7.28 L ABG Total CO2 26.2 30.6 H ABG O2 Saturation 88.9 L 99.2 H ABG O2 Content 17.1 16.9 ABG Base Excess -1.1 0.7 ABG Hemoglobin 14.2 12.3 ABG Carboxyhemoglobin 2.5 H 1.4 POC ABG HHb (Measured) 10.7 H 0.8 ABG Methemoglobin 1.1 1.1 ABG O2 Capacity 19.2 17.0 Jim Test Yes Yes A-a O2 Difference 174.0 507.0 Hgb O2 Saturation 85.8 L 96.6 Vent Mode N/c Nrm FiO2 40.0 100.0 Blood Gas Notified Time 46 620 Sodium 142 Potassium 4.8 Chloride 103 Carbon Dioxide 28 Anion Gap 16 BUN 35 H Creatinine 1.6 H Est GFR ( Amer) 55 Est GFR (Non-Af Amer) 45 POC Glucose (mg/dL) Random Glucose 207 H Calcium 7.7 L 09/13/16 06:13 WBC RBC Hgb Hct MCV MCH MCHC RDW Plt Count pCO2 pO2 HCO3 ABG pH ABG Total CO2 ABG O2 Saturation ABG O2 Content ABG Base Excess ABG Hemoglobin ABG Carboxyhemoglobin POC ABG HHb (Measured) ABG Methemoglobin ABG O2 Capacity Jim Test A-a O2 Difference Hgb O2 Saturation Vent Mode FiO2 Blood Gas Notified Time Sodium Potassium Chloride Carbon Dioxide Anion Gap BUN Creatinine Est GFR ( Amer) Est GFR (Non-Af Amer) POC Glucose (mg/dL) 223 H Random Glucose Calcium Critical Care Progress Note - Nutrition Nutrition: Nutrition Category Date Time Status Dysphagia/Modified Consistency Diet [DIET] Diets 09/12/16 Dinner Active Assessment/Plan (1) Acute respiratory failure with hypercapnia Current Visit: Yes Status: Acute Comment: IV antibiotics with IV Vanco and Zosyn Aggressive Pulmonary toilets, duonebs q4h. Wean off Fio2 Daily SAT/SBT GI/DVT prophylaxis (2) Altered mental status Current Visit: Yes Status: Acute Priority: High Comment: Multifacrorial, Toxic/Metabolic encephalopathy frequent neuro-check, Seizure precautions. Head CT scan and MRI on admission negative (3) Hepatic encephalopathy Current Visit: Yes Status: Acute Comment: Lactulose 20 gm PO BID Rifaximin 550 mg PO BID (4) Alcohol withdrawal seizure Current Visit: Yes Status: Acute Comment: Seizure free since admission (5) Aspiration pneumonia Current Visit: Yes Status: Acute Priority: High Comment: Vancomycin 750 mg IVPB Q12 [facility] Piperacillin Sod/Tazobactam 2.25 gm IVPB Q8 [facility] (6) Thrombocytopenia Current Visit: Yes Status: Acute Comment: No signs of active bleed at this time (7) Congestive cardiomyopathy Current Visit: Yes Status: Chronic Priority: High Attending/Attestation - Attestation I have personally seen and examined this patient.: Yes I have fully participated in the care of the patient.: Yes I have reviewed all pertinent clinical information: Yes Notes (Text): 09/13/16 11:41 Today: Tuesday, September 13, 2016 The Patient was seen and examined at the bedside, Medical records reviewed, all clinical/lab/hemodynamic/radiographic data were reviewed and management issues were discussed and formulated, Pain issues, skin care, head of the bed elevation, GI/DVT prophylaxis, glycemic control were addressed. Agree with above treatment plans as transcribed in Dr. Leyva note
--- NOTE | 2016-09-13 11:06 | CP.PCM.PN ---
Subjective - Date & Time of Evaluation Date of Evaluation: 09/13/16 Time of Evaluation: 09:00 - Subjective Subjective: Patient seen and examined at bedside in MICU. at bedside. Alert and follows instructions. Lethargic but opens eyes to name. Afebrile Objective - Vital Signs/Intake and Output Vital Signs (last 24 hours): Temp Pulse Resp BP Pulse Ox 97.7 F 70 22 105/77 97 09/13/16 08:00 09/13/16 10:00 09/13/16 10:00 09/13/16 10:00 09/13/16 10:00 Intake and Output: 09/13/16 09/13/16 06:59 18:59 Intake Total 1200 300 Output Total 800 Balance 400 300 - Medications Medications: Current Medications Acetaminophen (Tylenol 650mg/20.3ml Solution Ud) 650 mg PO Q6 PRN PRN Reason: Fever >100.4 F Last Admin: 09/10/16 15:51 Dose: 650 mg Folic Acid (Folic Acid) 1 mg PO DAILY [facility] Last Admin: 09/13/16 09:36 Dose: Not Given Levetiracetam 500 mg/ Sodium (Chloride) 105 mls @ 210 mls/hr IVPB Q12 [facility] Last Admin: 09/13/16 09:36 Dose: 210 mls/hr Dextrose/Sodium Chloride (Dextrose 5%/0.45% Ns 1000 Ml) 1,000 mls @ 100 mls/hr IV .Q10H [facility] Last Admin: 09/12/16 06:13 Dose: 100 mls/hr Fluconazole (Diflucan Iv 200 Mg/100 Ml Ns) 100 mls @ 100 mls/hr IVPB DAILY [facility] Last Admin: 09/13/16 09:36 Dose: 100 mls/hr Lidocaine HCl/Dextrose (Lidocaine 2 Grams In D5w) 500 mls @ 15 mls/hr IV .Q24H [facility] PRN Reason: 1 MG/MIN Last Admin: 09/11/16 21:00 Dose: 15 mls/hr Ceftaroline Fosamil 200 mg/ (Sodium Chloride) 100 mls @ 100 mls/hr IVPB Q12 [facility] Last Admin: 09/13/16 09:37 Dose: 100 mls/hr Insulin Human Regular (Humulin R) 0 units SC ACCU-CHECK [facility] PRN Reason: Protocol Last Admin: 09/13/16 06:52 Dose: 3 units Multivitamins/Minerals (Therapeutic-M Tab) 1 tab PO DAILY [facility] Last Admin: 09/13/16 09:38 Dose: Not Given Pantoprazole Sodium (Protonix Inj) 40 mg IVP DAILY [facility] Last Admin: 09/13/16 09:37 Dose: 40 mg Rifaximin (Xifaxan) 550 mg PO BID [facility] Last Admin: 09/13/16 09:38 Dose: Not Given Thiamine HCl (Vitamin B1 Tab) 100 mg PO DAILY [facility] Last Admin: 09/13/16 09:38 Dose: Not Given - Labs Labs: 09/13/16 05:40 09/13/16 05:40 PT 13.8 SECONDS (9.6-11.2) H 09/11/16 05:30 INR 1.33 (0.92-1.08) H 09/11/16 05:30 APTT 24.3 SECONDS (23.3-32.5) 09/06/16 04:25 - Constitutional Appears: Well, Non-toxic, No Acute Distress - Head Exam Additional comments: Anicteric sclera - ENT Exam ENT Exam: Mucous Membranes Moist, Normal Exam - Respiratory Exam Respiratory Exam: Rhonchi Additional comments: On 60% FiO2 - GI/Abdominal Exam GI & Abdominal Exam: Soft Additional comments: Ventral hernia with fluid pocket Distended Non guarding No rigidity - Neurological Exam Neurological Exam: Alert, Awake - Psychiatric Exam Additional comments: Confused but alert - Skin Skin Exam: Dry, Intact, Normal Color, Warm Assessment and Plan - Assessment and Plan (Free Text) Assessment: 51 year old male with history of Hypertension, Diabetes, active Alcohol Abuse, and Alcoholic cirrhosis presenting with seizure likely secondary to alcohol withdrawal. s/p Intubation and extubation. Hopsital course complicated by Vtach/ Vfib arrest with ROSC on 09/08/16, and ischemic cardiomyopathy,15%. No prior EGD or colonoscopy. Plan: - Improving mentation - No BM today - Continue lactulose bid and rifaximin- titrate to 2 BM/day - LFt improving - Hepatitis and autoimmune serologies negative - will benefit from CT liver protocol once creatinine improves - outpatient EGD for variceal screening - Supportive care - Resp status management as per MICU team - GI/DVT prophylaxis
[2016-09-13 12:30] LABS: ABG ALLEN TEST YES; ARTERIAL BLOOD FLOW 25; ARTERIAL BLOOD GAS HCO3 26.9 mmol/L (21-28); ARTERIAL BLOOD GAS MODE HFNC; ARTERIAL BLOOD GAS O2 CAPACITY 17.2 mL/dL (16-24); ARTERIAL BLOOD GAS O2 CONTENT 16.9 ML/dL (15-23); ARTERIAL BLOOD GAS PH 7.32 (7.35-7.45); ARTERIAL BLOOD GAS PO2 93 mm/Hg (80-100); ARTERIAL BLOOD HGB O2 SAT 96.1 % (95.0-98.0); CARBOXYHEMOGLOBIN 1.6 % (0.5-1.5); HHB 1.6 % (0.0-5.0); METHEMOGLOBIN 0.7 % (0.0-3.0)
--- NOTE | 2016-09-13 16:28 | CP.PCM.PN ---
Subjective - Date & Time of Evaluation Date of Evaluation: 09/13/16 Time of Evaluation: 15:00 - Subjective Subjective: SEEN ON RENAL F/U ALL PREVIOUS EMR REVIEWED REMAINS EXTUBATED CREAT IMPROVED FROM 1.7 TO 1.6 U/O GOOD Objective - Vital Signs/Intake and Output Vital Signs (last 24 hours): Temp Pulse Resp BP Pulse Ox 98.4 F 66 22 99/65 L 93 L 09/13/16 12:00 09/13/16 14:00 09/13/16 15:54 09/13/16 14:00 09/13/16 14:00 Intake and Output: 09/13/16 09/13/16 06:59 18:59 Intake Total 1200 540 Output Total 800 2200 Balance 400 -1660 - Medications Medications: Current Medications Acetaminophen (Tylenol 650mg/20.3ml Solution Ud) 650 mg PO Q6 PRN PRN Reason: Fever >100.4 F Last Admin: 09/10/16 15:51 Dose: 650 mg Folic Acid (Folic Acid) 1 mg PO DAILY [facility] Last Admin: 09/13/16 09:36 Dose: Not Given Levetiracetam 500 mg/ Sodium (Chloride) 105 mls @ 210 mls/hr IVPB Q12 [facility] Last Admin: 09/13/16 09:36 Dose: 210 mls/hr Dextrose/Sodium Chloride (Dextrose 5%/0.45% Ns 1000 Ml) 1,000 mls @ 100 mls/hr IV .Q10H [facility] Last Admin: 09/12/16 06:13 Dose: 100 mls/hr Fluconazole (Diflucan Iv 200 Mg/100 Ml Ns) 100 mls @ 100 mls/hr IVPB DAILY [facility] Last Admin: 09/13/16 09:36 Dose: 100 mls/hr Lidocaine HCl/Dextrose (Lidocaine 2 Grams In D5w) 500 mls @ 15 mls/hr IV .Q24H [facility] PRN Reason: 1 MG/MIN Last Admin: 09/11/16 21:00 Dose: 15 mls/hr Ceftaroline Fosamil 200 mg/ (Sodium Chloride) 100 mls @ 100 mls/hr IVPB Q12 [facility] Last Admin: 09/13/16 09:37 Dose: 100 mls/hr Insulin Human Regular (Humulin R) 0 units SC ACCU-CHECK [facility] PRN Reason: Protocol Last Admin: 09/13/16 16:18 Dose: Not Given Lactulose (Enulose) 20 gm PO DAILY [facility] Last Admin: 09/13/16 16:18 Dose: 20 gm Multivitamins/Minerals (Therapeutic-M Tab) 1 tab PO DAILY [facility] Last Admin: 09/13/16 09:38 Dose: Not Given Pantoprazole Sodium (Protonix Inj) 40 mg IVP DAILY [facility] Last Admin: 09/13/16 09:37 Dose: 40 mg Rifaximin (Xifaxan) 550 mg PO BID [facility] Last Admin: 09/13/16 16:19 Dose: 550 mg Thiamine HCl (Vitamin B1 Tab) 100 mg PO DAILY [facility] Last Admin: 09/13/16 09:38 Dose: Not Given - Labs Labs: 09/13/16 05:40 09/13/16 05:40 PT 13.8 SECONDS (9.6-11.2) H 09/11/16 05:30 INR 1.33 (0.92-1.08) H 09/11/16 05:30 APTT 24.3 SECONDS (23.3-32.5) 09/06/16 04:25 Assessment and Plan - Assessment and Plan (Free Text) Assessment: NONA .. RENAL FUNCTION IMPROVING ELECTROLYTES R OK S/P VDRF ETOH ABUSE P : C/O D5 1/2 NS AT 100 CC/ H C/O PRESENT CARE
[2016-09-13] MEDS: Dextrose 5%/0.45% NS 1,000 ML IV SCH (20:59)
[2016-09-14 05:03] LABS: ABG ALLEN TEST YES; ARTERIAL BLOOD GAS HCO3 27.3 mmol/L (21-28); ARTERIAL BLOOD GAS MODE HFOV; ARTERIAL BLOOD GAS O2 CAPACITY 18.2 mL/dL (16-24); ARTERIAL BLOOD GAS O2 CONTENT 16.8 ML/dL (15-23); ARTERIAL BLOOD GAS PO2 65 mm/Hg (80-100); CARBOXYHEMOGLOBIN 1.8 % (0.5-1.5); HHB 7.3 % (0.0-5.0); METHEMOGLOBIN 0.9 % (0.0-3.0)
[2016-09-14 06:15] LABS: HEMATOCRIT 42.6 % (35.0-51.0); MEAN CORPUSCULAR HEMOGLOBIN 30.2 pg (27.0-31.0); MEAN CORPUSCULAR HGB CONC 31.1 g/dL (33.0-37.0); RED CELL DISTRIBUTION WIDTH 15.8 % (11.5-14.5); WHITE BLOOD COUNT 7.9 K/uL (4.8-10.8)
[2016-09-14 06:30] LABS: BLOOD UREA NITROGEN 28 mg/dl (9-20); CALCIUM 8.2 mg/dL (8.4-10.2); CARBON DIOXIDE 29 mmol/L (22-30); CHLORIDE 106 mmol/L (98-107); GFR AFRICAN-AMERICAN > 60; GLUCOSE,RANDOM 151 mg/dL (75-110); POTASSIUM 4.6 MMOL/L (3.6-5.0); SODIUM 146 mmol/l (132-148)
[2016-09-14] MEDS: Insulin Regular 100 units/ml SC SCH ×4 (06:38→23:31)
[2016-09-14] MEDS: Metoprolol 1 mg/ml Inj IVP STA (06:50)
--- NOTE | 2016-09-14 06:51 | CP.PCM.PCO ---
Physician Communication Note - Physician Communication Note Physician Communication Note: Called to evaluate Pte with SpO2 87% on 50% Oxygen
[2016-09-14] MEDS ORDERED: Metoprolol 1 mg/ml Inj IVP ONE (06:55)
[2016-09-14] MEDS ORDERED: Metoprolol 1 mg/ml Inj IVP STA (06:59)
[2016-09-14] MEDS ORDERED: Chlorhexidine Gluconate 1 APPL/PKT TP ONE (07:23)
[2016-09-14] MEDS ORDERED: Propofol 10 mg/ml Inj (20 ML) IV ONE (07:40)
--- NOTE | 2016-09-14 08:02 | CP.CCUPN ---
CCU Subjective - Physician Review Subjective (Free Text): Agency Appointments Supervisor Procedure Note INTUBATION: Indications: Worsening hypercarbia, lethargy and tachypnea, not appropriate for BiPAP support, no improvement on HFNC up to 100% oxygen and 40 LPM with only 90 % SPO2. No Advance Directives noted. # 8.0 mm ETT inserted angelique-tracheally without difficulty into good position with +ETCO2 and satisfactory BS bilaterally, improved SPO2 up to 100%. No other anatomical abnormality noted, nor any dried secretions. ETT secured in place at 22cm hardik at the lips. Patient placed on MV: AC 12, TV 500ml, 100% oxygen with PEEP 5. CXR ordered to confirm placement. Sputum Cultures to be re-obtained.
--- NOTE | 2016-09-14 08:03 | PN ---
DATE: 09/13/2016 The patient is seen today, 09/13/2016, recent ed. VITAL SIGNS: Blood pressure 118/83, temperature 98.5, respiratory rate 20, and pulse 83. HEENT: Pupils equal, reacts to light. Normal-appearing mucosa of the conjunctivae, oropharyngeal, a nd nasal membrane mucosa. NECK: Supple, no JVD. No carotid bruits. No lymph node, no thyromegaly. CHEST AND LUNGS: Bilateral symmetrical expansion. Good air exchange, no rales, no rhonchi. CARDIOVASCULAR SYSTEM: PMI not localized. S1, S2. No additional sounds. ABDOMEN: Normoactive bowel sounds, no tenderness, no organomegaly, no masses. EXTREMITIES: No cyanosis, no clubbing, no edema. CENTRAL NERVOUS SYSTEM: Alert, awake, oriented x 1. No new neurological deficits. The patient was moving all extremities equally. ASSESSMENT: 1. Status post respiratory failure. 2. Alcohol withdrawal seizure. 3. Dilated cardiomyopathy. PLAN: Continue current medications and management, and follow recommendations of . CO2 r etention. Continue Accu-Cheks with insulin coverage. Canelo Ellison MD cc: [id number] TT: 09/13/2016 23:06:19 Confirmation # [id number] Dictation # [id number]
--- NOTE | 2016-09-14 08:32 | CP.PCM.PN ---
Subjective - Date & Time of Evaluation Date of Evaluation: 09/14/16 Time of Evaluation: 08:20 - Subjective Subjective: Developed resp distress and needed ventilatory support ABGs showed pCO2 of 65 mm Hg with acidosis/ pO2 65 mm Hg Now on 100% FiO2, Pulse ox 98-99% Sinus rhythm at 90 BPM/ BP 110/70 mm Hg No gallop, few basal rales Creatinine steadily dropping (Now 1.4 mg) Discussed with Dr. Mitchell (pt will be diuresed) Objective - Vital Signs/Intake and Output Vital Signs (last 24 hours): Temp Pulse Resp BP Pulse Ox 98.9 F 83 14 116/66 96 09/14/16 08:00 09/14/16 08:00 09/14/16 08:00 09/14/16 08:00 09/14/16 08:00 Intake and Output: 09/14/16 09/14/16 06:59 18:59 Intake Total 1450 Output Total 1200 Balance 250 - Medications Medications: Current Medications Acetaminophen (Tylenol 650mg/20.3ml Solution Ud) 650 mg PO Q6 PRN PRN Reason: Fever >100.4 F Last Admin: 09/10/16 15:51 Dose: 650 mg Folic Acid (Folic Acid) 1 mg PO DAILY [facility] Last Admin: 09/13/16 09:36 Dose: Not Given Levetiracetam 500 mg/ Sodium (Chloride) 105 mls @ 210 mls/hr IVPB Q12 [facility] Last Admin: 09/13/16 21:00 Dose: 210 mls/hr Fluconazole (Diflucan Iv 200 Mg/100 Ml Ns) 100 mls @ 100 mls/hr IVPB DAILY [facility] Last Admin: 09/13/16 09:36 Dose: 100 mls/hr Lidocaine HCl/Dextrose (Lidocaine 2 Grams In D5w) 500 mls @ 15 mls/hr IV .Q24H [facility] PRN Reason: 1 MG/MIN Last Admin: 09/11/16 21:00 Dose: 15 mls/hr Ceftaroline Fosamil 200 mg/ (Sodium Chloride) 100 mls @ 100 mls/hr IVPB Q12 [facility] Last Admin: 09/13/16 21:02 Dose: 100 mls/hr Propofol (Diprivan) 100 mls @ 2.98 mls/hr IV .Q24H [facility]; 5 MCG/KG/MIN PRN Reason: Protocol Stop: 09/15/16 07:46 Last Admin: 09/14/16 08:06 Dose: 2.98 mls/hr Insulin Human Regular (Humulin R) 0 units SC ACCU-CHECK [facility] PRN Reason: Protocol Last Admin: 09/14/16 06:38 Dose: 3 units Lactulose (Enulose) 20 gm PO DAILY [facility] Last Admin: 09/13/16 16:18 Dose: 20 gm Multivitamins/Minerals (Therapeutic-M Tab) 1 tab PO DAILY [facility] Last Admin: 09/13/16 09:38 Dose: Not Given Pantoprazole Sodium (Protonix Inj) 40 mg IVP DAILY [facility] Last Admin: 09/13/16 09:37 Dose: 40 mg Rifaximin (Xifaxan) 550 mg PO BID [facility] Last Admin: 09/13/16 16:19 Dose: 550 mg Thiamine HCl (Vitamin B1 Tab) 100 mg PO DAILY [facility] Last Admin: 09/13/16 09:38 Dose: Not Given - Labs Labs: 09/14/16 06:00 09/14/16 06:00 PT 13.8 SECONDS (9.6-11.2) H 09/11/16 05:30 INR 1.33 (0.92-1.08) H 09/11/16 05:30 APTT 24.3 SECONDS (23.3-32.5) 09/06/16 04:25
[2016-09-14 09:01] LABS: ABG ALLEN TEST YES; ABG MECHANICAL RATE 12; ARTERIAL BLOOD GAS HCO3 28.6 mmol/L (21-28); ARTERIAL BLOOD GAS MODE A/C/PRC; ARTERIAL BLOOD GAS PH 7.33 (7.35-7.45); ARTERIAL BLOOD GAS PO2 241 mm/Hg (80-100); ATERIAL BLOOD GAS PEEP 5
--- NOTE | 2016-09-14 09:41 | RAD ---
HISTORY: post intubation COMPARISON: Comparison is made to the previous study dated 09/14/2016 FINDINGS: LUNGS: The ET tube is seen at appropriate position. Haziness in the central portion of the lungs are again noted. There is also haziness seen at the lung bases. PLEURA: No significant pleural effusion identified, no pneumothorax apparent. CARDIOVASCULAR: The cardiac silhouette is prominent in size in this portable exam. OSSEOUS STRUCTURES: No significant abnormalities. VISUALIZED UPPER ABDOMEN: NG tube seen extending to the abdomen. OTHER FINDINGS: None. IMPRESSION: Appropriate position of the support devices. Otherwise no significant interval change.
--- NOTE | 2016-09-14 09:43 | RAD ---
HISTORY: SOB COMPARISON: Comparison is made to the previous study dated 09/13/2016 FINDINGS: LUNGS: Suspicious for mild pulmonary vascular congestion. No significant interval change in the lungs noted since the previous exam. PLEURA: No significant pleural effusion identified, no pneumothorax apparent. CARDIOVASCULAR: The cardiac silhouette is mildly enlarged. OSSEOUS STRUCTURES: No significant abnormalities. VISUALIZED UPPER ABDOMEN: Normal. OTHER FINDINGS: None. IMPRESSION: Suspicious for mild pulmonary vascular congestion. Cardiomegaly.
--- NOTE | 2016-09-14 10:19 | CP.PCM.PN ---
Subjective - Date & Time of Evaluation Date of Evaluation: 09/14/16 Time of Evaluation: 10:14 - Subjective Subjective: RFV: Cirrhosis S: Became more hypoxic overnight. Reintubated. Now back on vent. Objective - Vital Signs/Intake and Output Vital Signs (last 24 hours): Temp Pulse Resp BP Pulse Ox 98.9 F 83 14 116/66 96 09/14/16 08:00 09/14/16 08:00 09/14/16 08:00 09/14/16 08:00 09/14/16 08:00 Intake and Output: 09/14/16 09/14/16 06:59 18:59 Intake Total 1450 Output Total 1200 Balance 250 - Medications Medications: Current Medications Acetaminophen (Tylenol 650mg/20.3ml Solution Ud) 650 mg PO Q6 PRN PRN Reason: Fever >100.4 F Last Admin: 09/10/16 15:51 Dose: 650 mg Folic Acid (Folic Acid) 1 mg PO DAILY [facility] Last Admin: 09/13/16 09:36 Dose: Not Given Levetiracetam 500 mg/ Sodium (Chloride) 105 mls @ 210 mls/hr IVPB Q12 [facility] Last Admin: 09/13/16 21:00 Dose: 210 mls/hr Fluconazole (Diflucan Iv 200 Mg/100 Ml Ns) 100 mls @ 100 mls/hr IVPB DAILY [facility] Last Admin: 09/13/16 09:36 Dose: 100 mls/hr Lidocaine HCl/Dextrose (Lidocaine 2 Grams In D5w) 500 mls @ 15 mls/hr IV .Q24H [facility] PRN Reason: 1 MG/MIN Last Admin: 09/11/16 21:00 Dose: 15 mls/hr Ceftaroline Fosamil 200 mg/ (Sodium Chloride) 100 mls @ 100 mls/hr IVPB Q12 [facility] Last Admin: 09/13/16 21:02 Dose: 100 mls/hr Propofol (Diprivan) 100 mls @ 2.98 mls/hr IV .Q24H [facility]; 5 MCG/KG/MIN PRN Reason: Protocol Stop: 09/15/16 07:46 Last Admin: 09/14/16 08:06 Dose: 2.98 mls/hr Insulin Human Regular (Humulin R) 0 units SC ACCU-CHECK [facility] PRN Reason: Protocol Last Admin: 09/14/16 06:38 Dose: 3 units Lactulose (Enulose) 20 gm PO DAILY [facility] Last Admin: 09/13/16 16:18 Dose: 20 gm Multivitamins/Minerals (Therapeutic-M Tab) 1 tab PO DAILY [facility] Last Admin: 09/13/16 09:38 Dose: Not Given Pantoprazole Sodium (Protonix Inj) 40 mg IVP DAILY [facility] Last Admin: 09/13/16 09:37 Dose: 40 mg Rifaximin (Xifaxan) 550 mg PO BID [facility] Last Admin: 09/13/16 16:19 Dose: 550 mg Thiamine HCl (Vitamin B1 Tab) 100 mg PO DAILY [facility] Last Admin: 09/13/16 09:38 Dose: Not Given - Labs Labs: 09/14/16 06:00 09/14/16 06:00 PT 13.8 SECONDS (9.6-11.2) H 09/11/16 05:30 INR 1.33 (0.92-1.08) H 09/11/16 05:30 APTT 24.3 SECONDS (23.3-32.5) 09/06/16 04:25 - Constitutional Appears: Chronically Ill - Head Exam Head Exam: ATRAUMATIC, NORMOCEPHALIC - Eye Exam Eye Exam: Normal appearance - Respiratory Exam Additional comments: on vent - Cardiovascular Exam Cardiovascular Exam: +S1, +S2 - GI/Abdominal Exam GI & Abdominal Exam: Soft, Hernia. absent: Distended, Firm, Guarding, Tenderness - Neurological Exam Additional comments: sedated - Skin Skin Exam: Dry, Normal Color, Warm Assessment and Plan - Assessment and Plan (Free Text) Assessment: 51 year old male with h/o HTN, DM, EtOH abuse, and EtOH cirrhosis a/w withdrawal seizure, respiratory failure on vent, extubated, now re-intbuated, hopsital course complicated by Vtach/Vfib arrest with ROSC on 09/08/16, and ischemic cardiomyopathy,15%. 1. Alcoholic cirrhosis 2. Hepatic encephalopathy Plan: - Continue lactulose bid and rifaximin - titrate to 2 BM/day - LFTs stable - Hepatitis and autoimmune serologies negative - elective CT liver protocol once creatinine improves/acute issues resolve - elective outpatient EGD for variceal screening - Supportive care - Resp status management as per MICU team
--- NOTE | 2016-09-14 10:21 | CP.CCUPN ---
<Merrill Leyva T - Last Filed: 09/14/16 10:33> CCU Subjective - Physician Review Subjective (Free Text): 09/14/16 08:33 Pt seen and examined at bedside in the ICU. Pt had been receiving high flow o2 at 50%, which was increased early this AM to 60%. Pt was able to speak only one sentence at a time and with a very low volume. He denied any acute overnight events, His o2 sat remained in the 85-89% range and coupled with his clinical appearance, the decision was made to intubate. Otherwise, pt denied f/c/n/v/d/c , abd pain or distension, or other myalgias. CCU Objective - Vital Signs / Intake & Output Vital Signs (Last 4 hours): Vital Signs Temp Pulse Resp BP Pulse Ox 09/14/16 08:00 98.9 F 83 14 116/66 96 09/14/16 07:06 85 38 H 182/117 H 85 L 09/14/16 07:00 175/111 H 09/14/16 06:47 116 H 30 H 159/100 H 83 L 09/14/16 06:39 28 H Intake and Output (Last 8hrs): Intake & Output 09/13/16 09/14/16 09/14/16 22:59 06:59 14:59 Intake Total 550 900 Output Total 2200 1200 Balance -1650 -300 Weight 219 lb Intake: IV 300 900 Intake, Piggyback 200 Oral 50 0 Output: Urine 2200 1200 Urethral ([place]) 2200 1200 Other: # Bowel Movements 2 0 - Physical Exam Head: Positive for: Atraumatic, Normocephalic Pupils: Positive for: PERRL. Negative for: Sluggish, Non-Reactive Extroacular Muscles: Positive for: EOMI Conjunctiva: Positive for: Normal. Negative for: Injected, Icteric Mouth: Positive for: Dry Nose (External): Positive for: Atraumatic. Negative for: Abrasion Nose (Internal): Positive for: Normal Inspection Neck: Positive for: Normal Range of Motion, Trachea Midline. Negative for: JVD , Lymphadenopathy, Bruit Respiratory/Chest: Positive for: Decreased Breath Sounds, Rhonchi (moderate rhonchi throughout). Negative for: Respiratory Distress Cardiovascular: Positive for: Regular Rate and Rhythm, Normal S1, S2, Peripheal Pulses Present. Negative for: Murmurs Abdomen: Positive for: Normal Bowel Sounds. Negative for: Tenderness, Peritoneal Signs, Guarding Upper Extremity: Positive for: Normal Inspection, NORMAL PULSES. Negative for: Cyanosis, Edema Lower Extremity: Positive for: Normal Inspection, NORMAL PULSES. Negative for: Edema, CALF TENDERNESS Neurological: Positive for: GCS=15, CN II-XII Intact, Speech Normal (but low tone, quiet, and limited by respiratory issues) Skin: Positive for: Warm, Dry, Normal Color. Negative for: Rashes Psychiatric: Positive for: Alert, Oriented x 3 - Medications Active Medications: Active Medications Generic Name Dose Route Start Last Admin Trade Name Freq PRN Reason Stop Dose Admin Acetaminophen 650 mg 09/10/16 02:44 09/10/16 15:51 Tylenol 650mg/20.3ml Solution Ud PO 650 mg Q6 PRN Administration Fever >100.4 F Folic Acid 1 mg 09/04/16 09:00 09/13/16 09:36 Folic Acid PO Not Given DAILY [facility] Levetiracetam 500 mg/ Sodium 105 mls @ 210 mls/hr 09/08/16 12:45 09/13/16 21:00 Chloride IVPB 210 mls/hr Q12 [facility] Administration Fluconazole 100 mls @ 100 mls/hr 09/10/16 09:00 09/13/16 09:36 Diflucan Iv 200 Mg/100 Ml Ns IVPB 100 mls/hr DAILY [facility] Administration Lidocaine HCl/Dextrose 500 mls @ 15 mls/hr 09/09/16 20:15 09/11/16 21:00 Lidocaine 2 Grams In D5w IV 15 mls/hr .Q24H [facility] Administration 1 MG/MIN Ceftaroline Fosamil 200 mg/ 100 mls @ 100 mls/hr 09/10/16 21:00 09/13/16 21:02 Sodium Chloride IVPB 100 mls/hr Q12 [facility] Administration Propofol 100 mls @ 2.98 mls/hr 09/14/16 07:45 09/14/16 08:06 Diprivan IV 09/15/16 07:46 2.98 mls/hr .Q24H [facility] Administration Protocol 5 MCG/KG/MIN Insulin Human Regular 0 units 09/03/16 23:00 09/14/16 06:38 Humulin R SC 3 units ACCU-CHECK [facility] Administration Protocol Lactulose 20 gm 09/13/16 11:25 09/13/16 16:18 Enulose PO 20 gm DAILY [facility] Administration Multivitamins/Minerals 1 tab 09/04/16 09:00 09/13/16 09:38 Therapeutic-M Tab PO Not Given DAILY [facility] Pantoprazole Sodium 40 mg 09/06/16 09:00 09/13/16 09:37 Protonix Inj IVP 40 mg DAILY [facility] Administration Rifaximin 550 mg 09/12/16 09:00 09/13/16 16:19 Xifaxan PO 550 mg BID [facility] Administration Thiamine HCl 100 mg 09/04/16 09:00 09/13/16 09:38 Vitamin B1 Tab PO Not Given DAILY [facility] - Patient Studies Lab Studies: Lab Studies 09/14/16 09/14/16 09/14/16 Range/Units 09:00 06:00 05:32 WBC 7.9 (4.8-10.8) K/uL RBC 4.40 (4.40-5.90) Mil/uL Hgb 13.3 (12.0-18.0) g/dL Hct 42.6 (35.0-51.0) % MCV 97.0 H (80.0-94.0) fl MCH 30.2 (27.0-31.0) pg MCHC 31.1 L (33.0-37.0) g/dL RDW 15.8 H (11.5-14.5) % Plt Count 97 L D (130-400) K/uL pCO2 61 H (35-45) mm/Hg pO2 241 H (80-100) mm/Hg HCO3 28.6 H (21-28) mmol/L ABG pH 7.33 L (7.35-7.45) ABG Total CO2 34.1 H (22-28) mmol/L ABG O2 Saturation 99.8 H (95-98) % ABG O2 Content (15-23) ML/dL ABG Base Excess 4.7 H (-2.0-3.0) mmol/L ABG Hemoglobin (11.7-17.4) g/dL ABG Carboxyhemoglobin (0.5-1.5) % POC ABG HHb (Measured) (0.0-5.0) % ABG Methemoglobin (0.0-3.0) % ABG O2 Capacity (16-24) mL/dL Jim Test Yes ABG Potassium 4.6 (3.6-5.2) mmol/L A-a O2 Difference 396.0 mm/Hg Hgb O2 Saturation (95.0-98.0) % Sodium 141.0 146 (132-148) mmol/L Chloride 115.0 H 106 (98-107) mmol/L Glucose 165 H (75-110) mg/dL Lactate 1.0 (0.7-2.1) mmol/L Liter Flow Vent Mode A/c/prc Mechanical Rate 12 FiO2 100.0 % Tidal Volume 500 PEEP 5 Potassium 4.6 (3.6-5.0) MMOL/L Carbon Dioxide 29 (22-30) mmol/L Anion Gap 15 (10-20) BUN 28 H (9-20) mg/dl Creatinine 1.4 (0.8-1.5) mg/dL Est GFR ( Amer) > 60 Est GFR (Non-Af Amer) 53 POC Glucose (mg/dL) 215 H (65-110) mg/dL Random Glucose 151 H (75-110) mg/dL Calcium 8.2 L (8.4-10.2) mg/dL Total Creatine Kinase 132 (55-170) U/L Arterial Blood Potassium 4.6 (3.6-5.2) mmol/L 09/14/16 09/13/16 09/13/16 Range/Units 04:45 22:13 15:45 WBC (4.8-10.8) K/uL RBC (4.40-5.90) Mil/uL Hgb (12.0-18.0) g/dL Hct (35.0-51.0) % MCV (80.0-94.0) fl MCH (27.0-31.0) pg MCHC (33.0-37.0) g/dL RDW (11.5-14.5) % Plt Count (130-400) K/uL pCO2 64 H (35-45) mm/Hg pO2 65 L (80-100) mm/Hg HCO3 27.3 (21-28) mmol/L ABG pH 7.30 L (7.35-7.45) ABG Total CO2 33.5 H (22-28) mmol/L ABG O2 Saturation 92.5 L (95-98) % ABG O2 Content 16.8 (15-23) ML/dL ABG Base Excess 3.3 H (-2.0-3.0) mmol/L ABG Hemoglobin 13.3 (11.7-17.4) g/dL ABG Carboxyhemoglobin 1.8 H (0.5-1.5) % POC ABG HHb (Measured) 7.3 H (0.0-5.0) % ABG Methemoglobin 0.9 (0.0-3.0) % ABG O2 Capacity 18.2 (16-24) mL/dL Jim Test Yes ABG Potassium (3.6-5.2) mmol/L A-a O2 Difference 212.0 mm/Hg Hgb O2 Saturation 90.0 L (95.0-98.0) % Sodium (132-148) mmol/L Chloride (98-107) mmol/L Glucose (75-110) mg/dL Lactate (0.7-2.1) mmol/L Liter Flow Vent Mode Hfov Mechanical Rate FiO2 50.0 % Tidal Volume PEEP Potassium (3.6-5.0) MMOL/L Carbon Dioxide (22-30) mmol/L Anion Gap (10-20) BUN (9-20) mg/dl Creatinine (0.8-1.5) mg/dL Est GFR ( Amer) Est GFR (Non-Af Amer) POC Glucose (mg/dL) 130 H 111 H (65-110) mg/dL Random Glucose (75-110) mg/dL Calcium (8.4-10.2) mg/dL Total Creatine Kinase (55-170) U/L Arterial Blood Potassium (3.6-5.2) mmol/L 09/13/16 09/13/16 Range/Units 12:25 10:45 WBC (4.8-10.8) K/uL RBC (4.40-5.90) Mil/uL Hgb (12.0-18.0) g/dL Hct (35.0-51.0) % MCV (80.0-94.0) fl MCH (27.0-31.0) pg MCHC (33.0-37.0) g/dL RDW (11.5-14.5) % Plt Count (130-400) K/uL pCO2 58 H (35-45) mm/Hg pO2 93 (80-100) mm/Hg HCO3 26.9 (21-28) mmol/L ABG pH 7.32 L (7.35-7.45) ABG Total CO2 31.7 H (22-28) mmol/L ABG O2 Saturation 98.4 H (95-98) % ABG O2 Content 16.9 (15-23) ML/dL ABG Base Excess 2.5 (-2.0-3.0) mmol/L ABG Hemoglobin 12.4 (11.7-17.4) g/dL ABG Carboxyhemoglobin 1.6 H (0.5-1.5) % POC ABG HHb (Measured) 1.6 (0.0-5.0) % ABG Methemoglobin 0.7 (0.0-3.0) % ABG O2 Capacity 17.2 (16-24) mL/dL Jim Test Yes ABG Potassium (3.6-5.2) mmol/L A-a O2 Difference 191.0 mm/Hg Hgb O2 Saturation 96.1 (95.0-98.0) % Sodium (132-148) mmol/L Chloride (98-107) mmol/L Glucose (75-110) mg/dL Lactate (0.7-2.1) mmol/L Liter Flow 25 Vent Mode Hfnc Mechanical Rate FiO2 50.0 % Tidal Volume PEEP Potassium (3.6-5.0) MMOL/L Carbon Dioxide (22-30) mmol/L Anion Gap (10-20) BUN (9-20) mg/dl Creatinine (0.8-1.5) mg/dL Est GFR ( Amer) Est GFR (Non-Af Amer) POC Glucose (mg/dL) 168 H (65-110) mg/dL Random Glucose (75-110) mg/dL Calcium (8.4-10.2) mg/dL Total Creatine Kinase (55-170) U/L Arterial Blood Potassium (3.6-5.2) mmol/L Laboratory Results - last 24 hr 09/13/16 09/13/16 09/13/16 10:45 12:25 15:45 WBC RBC Hgb Hct MCV MCH MCHC RDW Plt Count pCO2 58 H pO2 93 HCO3 26.9 ABG pH 7.32 L ABG Total CO2 31.7 H ABG O2 Saturation 98.4 H ABG O2 Content 16.9 ABG Base Excess 2.5 ABG Hemoglobin 12.4 ABG Carboxyhemoglobin 1.6 H POC ABG HHb (Measured) 1.6 ABG Methemoglobin 0.7 ABG O2 Capacity 17.2 Jim Test Yes ABG Potassium A-a O2 Difference 191.0 Hgb O2 Saturation 96.1 Glucose Lactate Liter Flow 25 Vent Mode Hfnc Mechanical Rate FiO2 50.0 Tidal Volume PEEP Sodium Potassium Chloride Carbon Dioxide Anion Gap BUN Creatinine Est GFR ( Amer) Est GFR (Non-Af Amer) POC Glucose (mg/dL) 168 H 111 H Random Glucose Calcium Total Creatine Kinase Arterial Blood Potassium 09/13/16 09/14/16 09/14/16 22:13 04:45 05:32 WBC RBC Hgb Hct MCV MCH MCHC RDW Plt Count pCO2 64 H pO2 65 L HCO3 27.3 ABG pH 7.30 L ABG Total CO2 33.5 H ABG O2 Saturation 92.5 L ABG O2 Content 16.8 ABG Base Excess 3.3 H ABG Hemoglobin 13.3 ABG Carboxyhemoglobin 1.8 H POC ABG HHb (Measured) 7.3 H ABG Methemoglobin 0.9 ABG O2 Capacity 18.2 Jim Test Yes ABG Potassium A-a O2 Difference 212.0 Hgb O2 Saturation 90.0 L Glucose Lactate Liter Flow Vent Mode Hfov Mechanical Rate FiO2 50.0 Tidal Volume PEEP Sodium Potassium Chloride Carbon Dioxide Anion Gap BUN Creatinine Est GFR ( Amer) Est GFR (Non-Af Amer) POC Glucose (mg/dL) 130 H 215 H Random Glucose Calcium Total Creatine Kinase Arterial Blood Potassium 09/14/16 09/14/16 06:00 09:00 WBC 7.9 RBC 4.40 Hgb 13.3 Hct 42.6 MCV 97.0 H MCH 30.2 MCHC 31.1 L RDW 15.8 H Plt Count 97 L D pCO2 61 H pO2 241 H HCO3 28.6 H ABG pH 7.33 L ABG Total CO2 34.1 H ABG O2 Saturation 99.8 H ABG O2 Content ABG Base Excess 4.7 H ABG Hemoglobin ABG Carboxyhemoglobin POC ABG HHb (Measured) ABG Methemoglobin ABG O2 Capacity Jmi Test Yes ABG Potassium 4.6 A-a O2 Difference 396.0 Hgb O2 Saturation Glucose 165 H Lactate 1.0 Liter Flow Vent Mode A/c/prc Mechanical Rate 12 FiO2 100.0 Tidal Volume 500 PEEP 5 Sodium 146 141.0 Potassium 4.6 Chloride 106 115.0 H Carbon Dioxide 29 Anion Gap 15 BUN 28 H Creatinine 1.4 Est GFR ( Amer) > 60 Est GFR (Non-Af Amer) 53 POC Glucose (mg/dL) Random Glucose 151 H Calcium 8.2 L Total Creatine Kinase 132 Arterial Blood Potassium 4.6 Fingerstick Blood Sugar Results: 215 Review of Systems - Review of Systems Review of Systems: see HPI Critical Care Progress Note - Nutrition Nutrition: Nutrition Category Date Time Status Dysphagia/Modified Consistency Diet [DIET] Diets 09/12/16 Dinner Active Assessment/Plan - Assessment and Plan (Free Text) Plan: 51 yo M w PMHx of HTN, Crohn's, and etoh dependency was admitted for seizures and etoh withdrawal, is currently intubated w sedation and minimally responsive to loud voices 1) Acute respiratory failure with hypercapnia -Hypercapnia had generally maintained w pCO@ of 64 this AM -Pt had been on high flow at 50%, increased to 60% without much effect as his o2 % remained mid 80s% -Teflaro 200mg IVPB Q12H -Fluconazole 200mg IVPB Daily -Duonebs Q6H [facility] -Will begin diuresis in order to reduce 3rd spacing -f/u Respiratory function -f/u post intubation ABG 2) Congestive Cardiomyopathy -Likely etoh induced -LV Systolic Fcn severely impaired, EF of 15-20% -Severe Mitral Regurg, Moderate Tricuspid Regurg -Will start beta nicholas unless contraindicated -Lidocaine 1mg/min for recent h/o VT -f/u Vitals 3) Acute Renal Failure -Improved -BUN/Cr: 28/1.4 -f/u labs -f/u I/O's -f/u Chest CT 4) Hepatic encephalopathy -Rifaximin 550 mg PO BID, as per GI 5) Aspiration pneumonia -Teflaro 200mg IVPB Q12H 6) Constipation -Lactulose 20 gm PO Daily 7) Altered mental status -Greatly improved 8) Thrombocytopenia -No signs of active bleed at this time <Moody Mitchell - Last Filed: 09/14/16 16:35> CCU Subjective - Physician Review Subjective (Free Text): Attestation: Patient seen and examined at the bedside with Resident Dr. Fox Leyva; and I agree with his outline of plans and management documented below as discussed on AM rounds reflecting my review of all applicable clinical data, and participation in the care of the patient throughout the day in ICU; today, September 14, 2016.
[2016-09-14] MEDS: levETIRAcetam 500 MG in Sodium Chloride 0.9% 100 ML IVPB SCH ×2 (10:23→20:08)
[2016-09-14] MEDS: Multivitamin With Minerals Tab PO SCH (10:25)
--- NOTE | 2016-09-14 10:43 | CP.PCM.PN ---
Subjective - Date & Time of Evaluation Date of Evaluation: 09/14/16 Time of Evaluation: 10:36 - Subjective Subjective: Interim events reviewed. Case discussed with director recreation center. Patient required re-intubation this morning. Presently back on mechanical ventilation, obtunded. Responds only to movement, not verbal commands. SpO2 100% and EtCO2 34-39mmHg. No dullness on percussion of the anterior chest wall, no subcutaneous emphysema. Breath sounds are barely audible posteriorly on the right, diminished in the remainder of lung [place]. No audible wheezing or bronchial breathing, few rhonchi on left. Chest x-ray shows haziness at both lung bases suggesting bilateral pleural effusions. No consolidations. Needs follow up ABG. Needs CT chest w/o contrast. Continue mechanical ventilatory support. Continue same medical regimen. Objective - Vital Signs/Intake and Output Vital Signs (last 24 hours): Temp Pulse Resp BP Pulse Ox 98.9 F 83 14 116/66 96 09/14/16 08:00 09/14/16 08:00 09/14/16 08:00 09/14/16 08:00 09/14/16 08:00 Intake and Output: 09/13/16 09/14/16 23:59 11:59 Intake Total 790 900 Output Total 2200 1200 Balance -1410 -300 - Medications Medications: Current Medications Acetaminophen (Tylenol 650mg/20.3ml Solution Ud) 650 mg PO Q6 PRN PRN Reason: Fever >100.4 F Last Admin: 09/10/16 15:51 Dose: 650 mg Folic Acid (Folic Acid) 1 mg PO DAILY [facility] Last Admin: 09/14/16 10:24 Dose: 1 mg Levetiracetam 500 mg/ Sodium (Chloride) 105 mls @ 210 mls/hr IVPB Q12 [facility] Last Admin: 09/14/16 10:23 Dose: 210 mls/hr Fluconazole (Diflucan Iv 200 Mg/100 Ml Ns) 100 mls @ 100 mls/hr IVPB DAILY [facility] Last Admin: 09/13/16 09:36 Dose: 100 mls/hr Lidocaine HCl/Dextrose (Lidocaine 2 Grams In D5w) 500 mls @ 15 mls/hr IV .Q24H [facility] PRN Reason: 1 MG/MIN Last Admin: 09/11/16 21:00 Dose: 15 mls/hr Ceftaroline Fosamil 200 mg/ (Sodium Chloride) 100 mls @ 100 mls/hr IVPB Q12 [facility] Last Admin: 09/14/16 10:22 Dose: 100 mls/hr Propofol (Diprivan) 100 mls @ 2.98 mls/hr IV .Q24H [facility]; 5 MCG/KG/MIN PRN Reason: Protocol Stop: 09/15/16 07:46 Last Admin: 09/14/16 08:06 Dose: 2.98 mls/hr Insulin Human Regular (Humulin R) 0 units SC ACCU-CHECK [facility] PRN Reason: Protocol Last Admin: 09/14/16 06:38 Dose: 3 units Lactulose (Enulose) 20 gm PO DAILY [facility] Last Admin: 09/14/16 10:24 Dose: 20 gm Multivitamins/Minerals (Therapeutic-M Tab) 1 tab PO DAILY [facility] Last Admin: 09/14/16 10:25 Dose: Not Given Pantoprazole Sodium (Protonix Inj) 40 mg IVP DAILY [facility] Last Admin: 09/14/16 10:25 Dose: 40 mg Rifaximin (Xifaxan) 550 mg PO BID [facility] Last Admin: 09/14/16 10:26 Dose: Not Given Thiamine HCl (Vitamin B1 Tab) 100 mg PO DAILY [facility] Last Admin: 09/14/16 10:25 Dose: 100 mg - Labs Labs: 09/14/16 06:00 09/14/16 06:00 PT 13.8 SECONDS (9.6-11.2) H 09/11/16 05:30 INR 1.33 (0.92-1.08) H 09/11/16 05:30 APTT 24.3 SECONDS (23.3-32.5) 09/06/16 04:25 Assessment and Plan (1) Aspiration pneumonia Status: Acute (2) Acute respiratory failure with hypoxia and hypercapnia Status: Acute (3) Pleural effusion Status: Acute (4) Congestive cardiomyopathy Status: Chronic (5) Altered mental status Status: Acute
[2016-09-14 11:25] LABS: ABG ALLEN TEST YES; ABG MECHANICAL RATE 12; ARTERIAL BLOOD GAS HCO3 30.4 mmol/L (21-28); ARTERIAL BLOOD GAS MODE PRVC/AC; ARTERIAL BLOOD GAS O2 CAPACITY 16.6 mL/dL (16-24); ARTERIAL BLOOD GAS O2 CONTENT 16.4 ML/dL (15-23); ARTERIAL BLOOD GAS PH 7.45 (7.35-7.45); ARTERIAL BLOOD GAS PO2 88 mm/Hg (80-100); ARTERIAL BLOOD HGB O2 SAT 96.1 % (95.0-98.0); ATERIAL BLOOD GAS PEEP 5; CARBOXYHEMOGLOBIN 1.8 % (0.5-1.5); METHEMOGLOBIN 1.1 % (0.0-3.0)
[2016-09-14] MEDS: Albuterol-Ipratrop 3 mg / 0.5 (3 ml) UD INH SCH ×2 (12:39→17:48)
--- NOTE | 2016-09-14 13:27 | CT ---
PROCEDURE: CT Chest without contrast HISTORY: r/o effusion vs other etiologies COMPARISON: None. TECHNIQUE: Contiguous axial images were obtained through the chest without intravenous contrast enhancement. Sagittal and coronal reconstructions were performed. Radiation dose (DLP): 736.07 mGy-cm. FINDINGS: LUNGS: Almost complete collapse of the left lower lobe. Almost complete collapse of the right lower lobe and partial collapse of the right middle lobe due to pleural effusions. No evidence of acute pathology in the visualized portion of the upper lobes. Linear opacity at the right upper lobe likely represents scar tissue. The ET tube is seen at appropriate position. MEDIASTINUM: Unremarkable thoracic aorta. No aneurysm. The heart is mildly enlarged. Main pulmonary artery unremarkable. No vascular congestion. No lymphadenopathy. PLEURA: Moderate to large bilateral pleural effusions are seen. No evidence of pneumothorax. BONES: No fracture. No destructive lesion. UPPER ABDOMEN: Grossly unremarkable. OTHER FINDINGS: None. IMPRESSION: Moderate to large bilateral pleural effusions associated with compressive atelectasis of the bilateral lower lobes and partial atelectasis of the right middle lobe. [id number] cardiomegaly. Appropriate position of the ETT and NG tube.
--- NOTE | 2016-09-14 13:29 | CP.PCM.PN ---
Subjective - Date & Time of Evaluation Date of Evaluation: 09/14/16 Time of Evaluation: 13:00 - Subjective Subjective: SEEN ON RENAL F/U IN ICU RE INTUBATED CREATININ DOWN TO 1.4 NA STARTED RISING .. NEEDS TO DISSOLVE ALL IV MEDS IN D5W COMPATIBLE ALL PREVIOUS EMR REVIEWED Objective - Vital Signs/Intake and Output Vital Signs (last 24 hours): Temp Pulse Resp BP Pulse Ox 98.8 F 74 15 116/72 97 09/14/16 11:57 09/14/16 12:39 09/14/16 11:57 09/14/16 10:00 09/14/16 11:57 Intake and Output: 09/14/16 09/14/16 06:59 18:59 Intake Total 1450 200 Output Total 1200 Balance 250 200 - Medications Medications: Current Medications Acetaminophen (Tylenol 650mg/20.3ml Solution Ud) 650 mg PO Q6 PRN PRN Reason: Fever >100.4 F Last Admin: 09/10/16 15:51 Dose: 650 mg Albuterol/Ipratropium (Duoneb 3 Mg/0.5 Mg (3 Ml) Ud) 3 ml INH Q6H [facility] Last Admin: 09/14/16 12:39 Dose: 3 ml Carvedilol (Coreg) 3.125 mg PO Q12 [facility] Folic Acid (Folic Acid) 1 mg PO DAILY [facility] Last Admin: 09/14/16 10:24 Dose: 1 mg Levetiracetam 500 mg/ Sodium (Chloride) 105 mls @ 210 mls/hr IVPB Q12 [facility] Last Admin: 09/14/16 10:23 Dose: 210 mls/hr Fluconazole (Diflucan Iv 200 Mg/100 Ml Ns) 100 mls @ 100 mls/hr IVPB DAILY [facility] Last Admin: 09/13/16 09:36 Dose: 100 mls/hr Lidocaine HCl/Dextrose (Lidocaine 2 Grams In D5w) 500 mls @ 15 mls/hr IV .Q24H [facility] PRN Reason: 1 MG/MIN Last Admin: 09/11/16 21:00 Dose: 15 mls/hr Ceftaroline Fosamil 200 mg/ (Sodium Chloride) 100 mls @ 100 mls/hr IVPB Q12 [facility] Last Admin: 09/14/16 10:22 Dose: 100 mls/hr Propofol (Diprivan) 100 mls @ 2.98 mls/hr IV .Q24H [facility]; 5 MCG/KG/MIN PRN Reason: Protocol Stop: 09/15/16 07:46 Last Admin: 09/14/16 08:06 Dose: 2.98 mls/hr Insulin Human Regular (Humulin R) 0 units SC ACCU-CHECK [facility] PRN Reason: Protocol Last Admin: 09/14/16 06:38 Dose: 3 units Lactulose (Enulose) 20 gm PO DAILY [facility] Last Admin: 09/14/16 10:24 Dose: 20 gm Multivitamins/Minerals (Therapeutic-M Tab) 1 tab PO DAILY [facility] Last Admin: 09/14/16 10:25 Dose: Not Given Pantoprazole Sodium (Protonix Inj) 40 mg IVP DAILY [facility] Last Admin: 09/14/16 10:25 Dose: 40 mg Rifaximin (Xifaxan) 550 mg PO BID [facility] Last Admin: 09/14/16 10:26 Dose: Not Given Spironolactone (Aldactone) 50 mg PO DAILY [facility] Thiamine HCl (Vitamin B1 Tab) 100 mg PO DAILY [facility] Last Admin: 09/14/16 10:25 Dose: 100 mg - Labs Labs: 09/14/16 06:00 09/14/16 06:00 PT 13.8 SECONDS (9.6-11.2) H 09/11/16 05:30 INR 1.33 (0.92-1.08) H 09/11/16 05:30 APTT 24.3 SECONDS (23.3-32.5) 09/06/16 04:25 Assessment and Plan - Assessment and Plan (Free Text) Assessment: NONA .. RENAL FUNCTION IMPROVING HYPER NATREMIA .. NA 146 .. DISSOLVE ALL IV MEDS IN D5W VDRF .. RE INTUBATED MULTIPLE CO MORBIDITIES P C/O D5 1/2 NS AT 100 CC/H DISSOLVE ALL IV MEDS IN D5W
[2016-09-14] MEDS: Fluconazole IV 200mg/100 ml NS 100 ML IVPB SCH (15:32)
--- NOTE | 2016-09-14 21:23 | PN ---
DATE: 09/14/2016 SUBJECTIVE: The patient is seen today, 09/14/2016. He is still in the intensive care unit and he had to be reintubated today because of respiratory distress with CO2 retention. OBJECTIVE: VITAL SIGNS: Blood pressure is 120/70, temperature 98.4, respiratory rate is 18, and pulse is 84. HEENT: Pupils equal, reactive to light. NECK: No JVD, no carotid bruit. No lymph nodes. No thyromegaly. CHEST AND LUNGS: Bilateral symmetrical expansion, good air exchange, no rales, no rhonchi. CARDIOVASCULAR: PMI not localized. S1, S2. No additional sounds. ABDOMEN: Normoactive bowel sounds, no tenderness, no organomegaly, no masses. EXTREMITIES: No cyanosis, no clubbing, no edema. CENTRAL NERVOUS SYSTEM: The patient is sedated on ventilator. ASSESSMENT: 1. Respiratory failure. 2. Alcohol withdrawal seizure. 3. Dilated cardiomyopathy. PLAN: Continue current medications and follow recommendations of the research lab assistant, tie presser and neurologist. Guarded prognosis. Dr. Kal Rogel will be covering from 09/14/2016-09/19/2016. Canelo Ellison MD cc: [phone] TT: 09/14/2016 21:22:18 Confirmation # [id number] Dictation # [id number] leslie
[2016-09-15] MEDS: Albuterol-Ipratrop 3 mg / 0.5 (3 ml) UD INH SCH ×4 (01:04→19:32)
[2016-09-15] MEDS: Acetaminophen 650mg/20.3ml solution UD PO PRN (01:19)
[2016-09-15 05:39] LABS: BLOOD UREA NITROGEN 28 mg/dl (9-20); CARBON DIOXIDE 28 mmol/L (22-30); CHLORIDE 105 mmol/L (98-107); GFR AFRICAN-AMERICAN > 60; GLUCOSE,RANDOM 184 mg/dL (75-110); HEMATOCRIT 34.2 % (35.0-51.0); MEAN CELL VOLUME 94.6 fl (80.0-94.0); MEAN CORPUSCULAR HEMOGLOBIN 31.9 pg (27.0-31.0); MEAN CORPUSCULAR HGB CONC 33.8 g/dL (33.0-37.0); POTASSIUM 4.4 MMOL/L (3.6-5.0); RED CELL DISTRIBUTION WIDTH 15.1 % (11.5-14.5); SODIUM 144 mmol/l (132-148); WHITE BLOOD COUNT 5.2 K/uL (4.8-10.8)
[2016-09-15] MEDS: Insulin Regular 100 units/ml SC SCH ×4 (06:15→23:37)
[2016-09-15] MEDS: Fluconazole IV 200mg/100 ml NS 100 ML IVPB SCH (08:30)
[2016-09-15] MEDS: Multivitamin With Minerals Tab PO SCH (08:31)
[2016-09-15] MEDS: levETIRAcetam 500 MG in Sodium Chloride 0.9% 100 ML IVPB SCH ×2 (08:31→20:23)
--- NOTE | 2016-09-15 08:31 | RAD ---
HISTORY: intubated COMPARISON: 09/14/2016 FINDINGS: LUNGS: No active pulmonary disease. PLEURA: No significant pleural effusion identified, no pneumothorax apparent. CARDIOVASCULAR: There is moderate cardiomegaly. OSSEOUS STRUCTURES: No significant abnormalities. VISUALIZED UPPER ABDOMEN: Normal. OTHER FINDINGS: Endotracheal and nasogastric tube in satisfactory position IMPRESSION: No active disease.
--- NOTE | 2016-09-15 10:30 | EEG ---
DATE: 09/13/2016 SUBJECTIVE: This is a 16-channel electroencephalogram of awake and drowsy adult. During the study, photic stimulation was performed. Hyperventilation was not performed. The resting electroencephalogram consists of 20-30 microvolt diffuse theta mixed with high delta acti vities seen at parietal and occipital leads. Anteriorly fast activity superimposed with muscle artif act. The photic stimulation did not evoke driving response noted at 2-20 Hz. IMPRESSION: This is abnormal electroencephalogram because of persistent slowing throughout the recor d suggestive of bilateral cerebral dysfunction. This is probably secondary to metabolic vascular or degenerative process. Please correlate the finding with the neurological and radiological studies. Jon Carmona MD cc: [id number] TT: 09/13/2016 21:29:43 Confirmation # [id number] Dictation # [id number] 09/14/2016 08:42:22
--- NOTE | 2016-09-15 10:49 | CP.CCUPN ---
<Merrill Leyva T - Last Filed: 09/15/16 11:21> CCU Subjective - Physician Review Subjective (Free Text): Pt seen and examined at bedside in the ICU. Pt is currently intubated but is alert and awake and able to write on notes. Otherwise, pt denied f/c/n/v/d/c, abd pain or distension, or other myalgias. CCU Objective - Vital Signs / Intake & Output Vital Signs (Last 4 hours): Vital Signs Temp Pulse Resp BP Pulse Ox 09/15/16 10:00 74 18 135/80 99 09/15/16 08:00 98.9 F 67 16 138/76 98 Intake and Output (Last 8hrs): Intake & Output 09/14/16 09/15/16 09/15/16 22:59 06:59 14:59 Intake Total 605 707 Output Total 600 Balance 605 107 Intake: IV 125 173 Intake, Piggyback 200 Oral 140 Tube Feeding 180 294 Free Water Flush 100 100 Output: Urine 600 Urethral ([place]) 600 Other: # Bowel Movements 5 - Physical Exam Head: Positive for: Atraumatic, Normocephalic Pupils: Positive for: PERRL. Negative for: Sluggish, Non-Reactive Extroacular Muscles: Positive for: EOMI Conjunctiva: Positive for: Normal. Negative for: Injected, Icteric Mouth: Positive for: Dry Nose (External): Positive for: Atraumatic. Negative for: Abrasion Nose (Internal): Positive for: Normal Inspection Neck: Positive for: Normal Range of Motion, Trachea Midline. Negative for: JVD , Lymphadenopathy, Bruit Respiratory/Chest: Positive for: Decreased Breath Sounds, Rhonchi (moderate rhonchi throughout). Negative for: Respiratory Distress Cardiovascular: Positive for: Regular Rate and Rhythm, Normal S1, S2, Peripheal Pulses Present. Negative for: Murmurs Abdomen: Positive for: Normal Bowel Sounds. Negative for: Tenderness, Peritoneal Signs, Guarding Upper Extremity: Positive for: Normal Inspection, NORMAL PULSES. Negative for: Cyanosis, Edema Lower Extremity: Positive for: Normal Inspection, NORMAL PULSES. Negative for: Edema, CALF TENDERNESS Skin: Positive for: Warm, Dry, Normal Color. Negative for: Rashes Psychiatric: Positive for: Alert, Oriented x 3 - Medications Active Medications: Active Medications Generic Name Dose Route Start Last Admin Trade Name Freq PRN Reason Stop Dose Admin Acetaminophen 650 mg 09/10/16 02:44 09/15/16 01:19 Tylenol 650mg/20.3ml Solution Ud PO 650 mg Q6 PRN Administration Fever >100.4 F Albuterol/Ipratropium 3 ml 09/14/16 11:15 09/15/16 01:04 Duoneb 3 Mg/0.5 Mg (3 Ml) Ud INH 3 ml Q6H [facility] Administration Carvedilol 3.125 mg 09/14/16 11:30 09/15/16 08:31 Coreg PO 3.125 mg Q12 [facility] Administration Folic Acid 1 mg 09/04/16 09:00 09/15/16 08:31 Folic Acid PO 1 mg DAILY [facility] Administration Levetiracetam 500 mg/ Sodium 105 mls @ 210 mls/hr 09/08/16 12:45 09/15/16 08:31 Chloride IVPB 210 mls/hr Q12 [facility] Administration Fluconazole 100 mls @ 100 mls/hr 09/10/16 09:00 09/15/16 08:30 Diflucan Iv 200 Mg/100 Ml Ns IVPB 100 mls/hr DAILY [facility] Administration Lidocaine HCl/Dextrose 500 mls @ 15 mls/hr 09/09/16 20:15 09/11/16 21:00 Lidocaine 2 Grams In D5w IV 15 mls/hr .Q24H [facility] Administration 1 MG/MIN Ceftaroline Fosamil 200 mg/ 100 mls @ 100 mls/hr 09/10/16 21:00 09/15/16 08:33 Sodium Chloride IVPB 100 mls/hr Q12 [facility] Administration Insulin Human Regular 0 units 09/03/16 23:00 09/15/16 06:15 Humulin R SC 2 units ACCU-CHECK [facility] Administration Protocol Lactulose 20 gm 09/13/16 11:25 09/15/16 08:31 Enulose PO 20 gm DAILY [facility] Administration Multivitamins/Minerals 1 tab 09/04/16 09:00 09/15/16 08:31 Therapeutic-M Tab PO 1 tab DAILY [facility] Administration Pantoprazole Sodium 40 mg 09/06/16 09:00 09/15/16 08:32 Protonix Inj IVP 40 mg DAILY [facility] Administration Rifaximin 550 mg 09/12/16 09:00 09/15/16 08:32 Xifaxan PO 550 mg BID [facility] Administration Spironolactone 50 mg 09/14/16 11:15 09/15/16 08:30 Aldactone PO 50 mg DAILY [facility] Administration Thiamine HCl 100 mg 09/04/16 09:00 09/15/16 08:31 Vitamin B1 Tab PO 100 mg DAILY [facility] Administration - Patient Studies Lab Studies: Lab Studies 09/15/16 09/15/16 09/14/16 Range/Units 05:00 04:50 21:11 WBC 5.2 (4.8-10.8) K/uL RBC 3.61 L (4.40-5.90) Mil/uL Hgb 11.5 L (12.0-18.0) g/dL Hct 34.2 L (35.0-51.0) % MCV 94.6 H D (80.0-94.0) fl MCH 31.9 H (27.0-31.0) pg MCHC 33.8 (33.0-37.0) g/dL RDW 15.1 H (11.5-14.5) % Plt Count 72 L D (130-400) K/uL pCO2 (35-45) mm/Hg pO2 (80-100) mm/Hg HCO3 (21-28) mmol/L ABG pH (7.35-7.45) ABG Total CO2 (22-28) mmol/L ABG O2 Saturation (95-98) % ABG O2 Content (15-23) ML/dL ABG Base Excess (-2.0-3.0) mmol/L ABG Hemoglobin (11.7-17.4) g/dL ABG Carboxyhemoglobin (0.5-1.5) % POC ABG HHb (Measured) (0.0-5.0) % ABG Methemoglobin (0.0-3.0) % ABG O2 Capacity (16-24) mL/dL Jim Test A-a O2 Difference mm/Hg Hgb O2 Saturation (95.0-98.0) % Vent Mode Mechanical Rate FiO2 % Tidal Volume PEEP Sodium 144 (132-148) mmol/l Potassium 4.4 (3.6-5.0) MMOL/L Chloride 105 (98-107) mmol/L Carbon Dioxide 28 (22-30) mmol/L Anion Gap 15 (10-20) BUN 28 H (9-20) mg/dl Creatinine 1.3 (0.8-1.5) mg/dL Est GFR ( Amer) > 60 Est GFR (Non-Af Amer) 58 POC Glucose (mg/dL) 181 H 132 H (65-110) mg/dL Random Glucose 184 H (75-110) mg/dL Calcium 8.0 L (8.4-10.2) mg/dL 09/14/16 09/14/16 09/14/16 Range/Units 15:58 11:23 11:04 WBC (4.8-10.8) K/uL RBC (4.40-5.90) Mil/uL Hgb (12.0-18.0) g/dL Hct (35.0-51.0) % MCV (80.0-94.0) fl MCH (27.0-31.0) pg MCHC (33.0-37.0) g/dL RDW (11.5-14.5) % Plt Count (130-400) K/uL pCO2 46 H (35-45) mm/Hg pO2 88 (80-100) mm/Hg HCO3 30.4 H (21-28) mmol/L ABG pH 7.45 (7.35-7.45) ABG Total CO2 33.4 H (22-28) mmol/L ABG O2 Saturation 99.0 H (95-98) % ABG O2 Content 16.4 (15-23) ML/dL ABG Base Excess 7.0 H (-2.0-3.0) mmol/L ABG Hemoglobin 12.1 (11.7-17.4) g/dL ABG Carboxyhemoglobin 1.8 H (0.5-1.5) % POC ABG HHb (Measured) 1.0 (0.0-5.0) % ABG Methemoglobin 1.1 (0.0-3.0) % ABG O2 Capacity 16.6 (16-24) mL/dL Jim Test Yes A-a O2 Difference 282.0 mm/Hg Hgb O2 Saturation 96.1 (95.0-98.0) % Vent Mode Prvc/ac Mechanical Rate 12 FiO2 60.0 % Tidal Volume 600 PEEP 5 Sodium (132-148) mmol/l Potassium (3.6-5.0) MMOL/L Chloride (98-107) mmol/L Carbon Dioxide (22-30) mmol/L Anion Gap (10-20) BUN (9-20) mg/dl Creatinine (0.8-1.5) mg/dL Est GFR ( Amer) Est GFR (Non-Af Amer) POC Glucose (mg/dL) 144 H 146 H (65-110) mg/dL Random Glucose (75-110) mg/dL Calcium (8.4-10.2) mg/dL Laboratory Results - last 24 hr 09/14/16 09/14/16 09/14/16 11:04 11:23 15:58 WBC RBC Hgb Hct MCV MCH MCHC RDW Plt Count pCO2 46 H pO2 88 HCO3 30.4 H ABG pH 7.45 ABG Total CO2 33.4 H ABG O2 Saturation 99.0 H ABG O2 Content 16.4 ABG Base Excess 7.0 H ABG Hemoglobin 12.1 ABG Carboxyhemoglobin 1.8 H POC ABG HHb (Measured) 1.0 ABG Methemoglobin 1.1 ABG O2 Capacity 16.6 Jim Test Yes A-a O2 Difference 282.0 Hgb O2 Saturation 96.1 Vent Mode Prvc/ac Mechanical Rate 12 FiO2 60.0 Tidal Volume 600 PEEP 5 Sodium Potassium Chloride Carbon Dioxide Anion Gap BUN Creatinine Est GFR ( Amer) Est GFR (Non-Af Amer) POC Glucose (mg/dL) 146 H 144 H Random Glucose Calcium 09/14/16 09/15/16 09/15/16 21:11 04:50 05:00 WBC 5.2 RBC 3.61 L Hgb 11.5 L Hct 34.2 L MCV 94.6 H D MCH 31.9 H MCHC 33.8 RDW 15.1 H Plt Count 72 L D pCO2 pO2 HCO3 ABG pH ABG Total CO2 ABG O2 Saturation ABG O2 Content ABG Base Excess ABG Hemoglobin ABG Carboxyhemoglobin POC ABG HHb (Measured) ABG Methemoglobin ABG O2 Capacity Jim Test A-a O2 Difference Hgb O2 Saturation Vent Mode Mechanical Rate FiO2 Tidal Volume PEEP Sodium 144 Potassium 4.4 Chloride 105 Carbon Dioxide 28 Anion Gap 15 BUN 28 H Creatinine 1.3 Est GFR ( Amer) > 60 Est GFR (Non-Af Amer) 58 POC Glucose (mg/dL) 132 H 181 H Random Glucose 184 H Calcium 8.0 L Fingerstick Blood Sugar Results: 181 Review of Systems - Review of Systems Review of Systems: see HPI Critical Care Progress Note - Ventilator Checklist Head of Bed 30 Degrees: Yes Daily Sedation Vacation: Yes Daily Assessment of Readiness to Wean: Yes Daily Spontaneous Breathing Trial: Yes PUD Prophalyxis: Yes DVT Prophylaxis: Yes Oral Care with Chlorhexidine Gluconate {CHG}: Yes - Vent Settings MODE:: CPAP RESP RATE:: 10 FIO2:: 45 PRESSURE SUPPORT:: 5 - Nutrition Nutrition: Nutrition Category Date Time Status Dysphagia/Modified Consistency Diet [DIET] Diets 09/12/16 Dinner Active Assessment/Plan - Assessment and Plan (Free Text) Plan: 51 yo M w PMHx of HTN, Crohn's, and etoh dependency was admitted for seizures and etoh withdrawal, is currently intubated w sedation and minimally responsive to loud voices 1) Acute respiratory failure with hypercapnia -Hypercapnia has improved w pCO@ of 43 this AM -Pt is no longer sedated, is alert/awake, and will be placed upon CPAP -End Tidal 32 -Teflaro 200mg IVPB Q12H -Fluconazole 200mg IVPB Daily -Duonebs Q6H [facility] -Will continue to provide diuresis PRN if warranted in order to reduce 3rd spacing -f/u Respiratory function -f/u ABG 2) Congestive Cardiomyopathy -Likely etoh induced -LV Systolic Fcn severely impaired, EF of 15-20% -Severe Mitral Regurg, Moderate Tricuspid Regurg -Coreg 3.125mg Q12H -Lidocaine 1mg/min for h/o VT; has not had VT in previous few days but has had PACs -f/u Vitals 3) Acute Renal Failure -Improved -BUN/Cr: 28/1.3 -C[address] CT: Moderate to large bilateral pleural effusion associated w compressive atelectasis of the bilateral lower lobes and partial atelectasis of the right middle lobe. -f/u labs -f/u I/O's 4) Hepatic encephalopathy -Rifaximin 550 mg PO BID, as per GI 5) Aspiration pneumonia -Teflaro 200mg IVPB Q12H 6) Constipation -Lactulose 20 gm PO Daily 7) Altered mental status -Greatly improved 8) Thrombocytopenia -No signs of active bleed at this time <Moody Mitchell - Last Filed: 09/15/16 16:24> CCU Subjective - Physician Review Subjective (Free Text): Attestation: Patient seen and examined at the bedside with Resident Dr. Fox Leyva; and I agree with his outline of plans and management documented below as discussed on AM rounds reflecting my review of all applicable clinical data, and participation in the care of the patient throughout the day in ICU; today, September 15, 2016.
--- NOTE | 2016-09-15 11:27 | CP.PCM.PN ---
Subjective - Date & Time of Evaluation Date of Evaluation: 09/15/16 Time of Evaluation: 11:10 - Subjective Subjective: Being weaned off the ventilator FiO2 40% (pulse ox 94-95% Sinus rhythm at 70 BPM BP 140/70 mm Hg Excellent urine out put (Creatinine continues to drop 1.3 mg) Electrolytes stable Objective - Vital Signs/Intake and Output Vital Signs (last 24 hours): Temp Pulse Resp BP Pulse Ox 98.9 F 74 18 135/80 99 09/15/16 08:00 09/15/16 10:00 09/15/16 10:00 09/15/16 10:00 09/15/16 10:00 Intake and Output: 09/15/16 09/15/16 06:59 18:59 Intake Total 1312 Output Total 600 Balance 712 - Medications Medications: Current Medications Acetaminophen (Tylenol 650mg/20.3ml Solution Ud) 650 mg PO Q6 PRN PRN Reason: Fever >100.4 F Last Admin: 09/15/16 01:19 Dose: 650 mg Albuterol/Ipratropium (Duoneb 3 Mg/0.5 Mg (3 Ml) Ud) 3 ml INH Q6H [facility] Last Admin: 09/15/16 01:04 Dose: 3 ml Carvedilol (Coreg) 3.125 mg PO Q12 [facility] Last Admin: 09/15/16 08:31 Dose: 3.125 mg Folic Acid (Folic Acid) 1 mg PO DAILY [facility] Last Admin: 09/15/16 08:31 Dose: 1 mg Levetiracetam 500 mg/ Sodium (Chloride) 105 mls @ 210 mls/hr IVPB Q12 [facility] Last Admin: 09/15/16 08:31 Dose: 210 mls/hr Fluconazole (Diflucan Iv 200 Mg/100 Ml Ns) 100 mls @ 100 mls/hr IVPB DAILY [facility] Last Admin: 09/15/16 08:30 Dose: 100 mls/hr Lidocaine HCl/Dextrose (Lidocaine 2 Grams In D5w) 500 mls @ 15 mls/hr IV .Q24H [facility] PRN Reason: 1 MG/MIN Last Admin: 09/11/16 21:00 Dose: 15 mls/hr Ceftaroline Fosamil 200 mg/ (Sodium Chloride) 100 mls @ 100 mls/hr IVPB Q12 [facility] Last Admin: 09/15/16 08:33 Dose: 100 mls/hr Insulin Human Regular (Humulin R) 0 units SC ACCU-CHECK [facility] PRN Reason: Protocol Last Admin: 09/15/16 06:15 Dose: 2 units Lactulose (Enulose) 20 gm PO DAILY [facility] Last Admin: 09/15/16 08:31 Dose: 20 gm Multivitamins/Minerals (Therapeutic-M Tab) 1 tab PO DAILY [facility] Last Admin: 09/15/16 08:31 Dose: 1 tab Pantoprazole Sodium (Protonix Inj) 40 mg IVP DAILY [facility] Last Admin: 09/15/16 08:32 Dose: 40 mg Rifaximin (Xifaxan) 550 mg PO BID [facility] Last Admin: 09/15/16 08:32 Dose: 550 mg Spironolactone (Aldactone) 50 mg PO DAILY [facility] Last Admin: 09/15/16 08:30 Dose: 50 mg Thiamine HCl (Vitamin B1 Tab) 100 mg PO DAILY [facility] Last Admin: 09/15/16 08:31 Dose: 100 mg - Labs Labs: 09/15/16 05:00 09/15/16 05:00 PT 13.8 SECONDS (9.6-11.2) H 09/11/16 05:30 INR 1.33 (0.92-1.08) H 09/11/16 05:30 APTT 24.3 SECONDS (23.3-32.5) 09/06/16 04:25
[2016-09-15 12:24] LABS: ABG ALLEN TEST YES; ARTERIAL BLOOD GAS HCO3 29.9 mmol/L (21-28); ARTERIAL BLOOD GAS MODE CPAP; ARTERIAL BLOOD GAS O2 CONTENT 15.8 ML/dL (15-23); ARTERIAL BLOOD GAS PH 7.48 (7.35-7.45); ARTERIAL BLOOD GAS PO2 100 mm/Hg (80-100); ARTERIAL BLOOD HGB O2 SAT 96.9 % (95.0-98.0); ATERIAL BLOOD GAS PEEP 5; CARBOXYHEMOGLOBIN 1.4 % (0.5-1.5); METHEMOGLOBIN 0.7 % (0.0-3.0)
--- NOTE | 2016-09-15 12:34 | CP.PCM.PN ---
Subjective - Date & Time of Evaluation Date of Evaluation: 09/15/16 Time of Evaluation: 12:00 - Subjective Subjective: Patient seen in MICU this am. On weaning trails. Following commands. Had 2 BM as per nursing staff on lactulose Objective - Vital Signs/Intake and Output Vital Signs (last 24 hours): Temp Pulse Resp BP Pulse Ox 99.8 F H 74 16 128/53 L 99 09/15/16 12:00 09/15/16 12:00 09/15/16 12:00 09/15/16 12:00 09/15/16 12:00 Intake and Output: 09/15/16 09/15/16 06:59 18:59 Intake Total 1312 260 Output Total 600 Balance 712 260 - Medications Medications: Current Medications Acetaminophen (Tylenol 650mg/20.3ml Solution Ud) 650 mg PO Q6 PRN PRN Reason: Fever >100.4 F Last Admin: 09/15/16 01:19 Dose: 650 mg Albuterol/Ipratropium (Duoneb 3 Mg/0.5 Mg (3 Ml) Ud) 3 ml INH Q6H [facility] Last Admin: 09/15/16 01:04 Dose: 3 ml Carvedilol (Coreg) 3.125 mg PO Q12 [facility] Last Admin: 09/15/16 08:31 Dose: 3.125 mg Folic Acid (Folic Acid) 1 mg PO DAILY [facility] Last Admin: 09/15/16 08:31 Dose: 1 mg Levetiracetam 500 mg/ Sodium (Chloride) 105 mls @ 210 mls/hr IVPB Q12 [facility] Last Admin: 09/15/16 08:31 Dose: 210 mls/hr Fluconazole (Diflucan Iv 200 Mg/100 Ml Ns) 100 mls @ 100 mls/hr IVPB DAILY [facility] Last Admin: 09/15/16 08:30 Dose: 100 mls/hr Lidocaine HCl/Dextrose (Lidocaine 2 Grams In D5w) 500 mls @ 15 mls/hr IV .Q24H [facility] PRN Reason: 1 MG/MIN Last Admin: 09/11/16 21:00 Dose: 15 mls/hr Ceftaroline Fosamil 200 mg/ (Sodium Chloride) 100 mls @ 100 mls/hr IVPB Q12 [facility] Last Admin: 09/15/16 08:33 Dose: 100 mls/hr Insulin Human Regular (Humulin R) 0 units SC ACCU-CHECK [facility] PRN Reason: Protocol Last Admin: 09/15/16 06:15 Dose: 2 units Lactulose (Enulose) 20 gm PO DAILY [facility] Last Admin: 09/15/16 08:31 Dose: 20 gm Multivitamins/Minerals (Therapeutic-M Tab) 1 tab PO DAILY [facility] Last Admin: 09/15/16 08:31 Dose: 1 tab Pantoprazole Sodium (Protonix Inj) 40 mg IVP DAILY [facility] Last Admin: 09/15/16 08:32 Dose: 40 mg Rifaximin (Xifaxan) 550 mg PO BID [facility] Last Admin: 09/15/16 08:32 Dose: 550 mg Spironolactone (Aldactone) 50 mg PO DAILY [facility] Last Admin: 09/15/16 08:30 Dose: 50 mg Thiamine HCl (Vitamin B1 Tab) 100 mg PO DAILY [facility] Last Admin: 09/15/16 08:31 Dose: 100 mg - Labs Labs: 09/15/16 05:00 09/15/16 05:00 PT 13.8 SECONDS (9.6-11.2) H 09/11/16 05:30 INR 1.33 (0.92-1.08) H 09/11/16 05:30 APTT 24.3 SECONDS (23.3-32.5) 09/06/16 04:25 - Head Exam Additional comments: Intubated Awake Following commands NGT feeds on hold Coarse breath sounds RRR. No mumurS. S1 S2 regular Distended abdomen. Hernia +. Ascitic fluid in hernia sac. Soft. No guarding or rigidity. Assessment and Plan - Assessment and Plan (Free Text) Assessment: 51 year old male with h/o HTN, DM, EtOH abuse, and EtOH cirrhosis a/w withdrawal seizure, respiratory failure on vent, extubated, now re-intbuated, hopsital course complicated by Vtach/Vfib arrest with ROSC on 09/08/16, and ischemic cardiomyopathy,15%. Plan: - Continue lactulose bid and rifaximin - titrate to 2 BM/day - LFTs stable - Hepatitis and autoimmune serologies negative - elective CT liver protocol once creatinine improves/acute issues resolve - elective outpatient EGD for variceal screening - Supportive care - Resp status management as per MICU team
[2016-09-15 12:36] LABS: PARTIAL THROMBOPLASTIN TIME 28.7 SECONDS (23.3-32.5)
[2016-09-15] MEDS ORDERED: Sodium Chloride 0.9% 1,000 ML IV SCH (15:00)
[2016-09-15 16:23] LABS: ABG ALLEN TEST YES; ARTERIAL BLOOD GAS HCO3 28.8 mmol/L (21-28); ARTERIAL BLOOD GAS O2 CAPACITY 16.3 mL/dL (16-24); ARTERIAL BLOOD GAS O2 CONTENT 15.8 ML/dL (15-23); ARTERIAL BLOOD GAS PH 7.38 (7.35-7.45); ARTERIAL BLOOD GAS PO2 80 mm/Hg (80-100); ARTERIAL BLOOD HGB O2 SAT 94.3 % (95.0-98.0); CARBOXYHEMOGLOBIN 1.5 % (0.5-1.5); METHEMOGLOBIN 1.2 % (0.0-3.0)
[2016-09-15 19:45] LABS: ABG ALLEN TEST YES; ARTERIAL BLOOD GAS HCO3 29.7 mmol/L (21-28); ARTERIAL BLOOD GAS O2 CAPACITY 16.3 mL/dL (16-24); ARTERIAL BLOOD GAS O2 CONTENT 15.9 ML/dL (15-23); ARTERIAL BLOOD GAS PH 7.44 (7.35-7.45); ARTERIAL BLOOD GAS PO2 80 mm/Hg (80-100); ARTERIAL BLOOD HGB O2 SAT 94.7 % (95.0-98.0); CARBOXYHEMOGLOBIN 1.7 % (0.5-1.5); HHB 2.5 % (0.0-5.0); METHEMOGLOBIN 1.1 % (0.0-3.0)
--- NOTE | 2016-09-15 21:20 | CP.PCM.PN ---
Subjective - Date & Time of Evaluation Date of Evaluation: 09/15/16 Time of Evaluation: 14:00 - Subjective Subjective: SEEN ON RENAL F/U IN ICU EXTUBATED ON O2 MASK ALERT RESPONSIVE CREATININ DOWN TO 1,3 .. BUN 28 ALL EMR REVIEWED Objective - Vital Signs/Intake and Output Vital Signs (last 24 hours): Temp Pulse Resp BP Pulse Ox 99.3 F 87 26 H 141/74 95 09/15/16 16:00 09/15/16 20:28 09/15/16 18:00 09/15/16 20:28 09/15/16 18:00 Intake and Output: 09/15/16 09/16/16 18:59 06:59 Intake Total 812 Output Total 1200 Balance -388 - Medications Medications: Current Medications Acetaminophen (Tylenol 650mg/20.3ml Solution Ud) 650 mg PO Q6 PRN PRN Reason: Fever >100.4 F Last Admin: 09/15/16 01:19 Dose: 650 mg Albuterol/Ipratropium (Duoneb 3 Mg/0.5 Mg (3 Ml) Ud) 3 ml INH Q6H [facility] Last Admin: 09/15/16 19:32 Dose: 3 ml Carvedilol (Coreg) 3.125 mg PO Q12 [facility] Last Admin: 09/15/16 20:28 Dose: 3.125 mg Folic Acid (Folic Acid) 1 mg PO DAILY [facility] Last Admin: 09/15/16 08:31 Dose: 1 mg Levetiracetam 500 mg/ Sodium (Chloride) 105 mls @ 210 mls/hr IVPB Q12 [facility] Last Admin: 09/15/16 20:23 Dose: 210 mls/hr Fluconazole (Diflucan Iv 200 Mg/100 Ml Ns) 100 mls @ 100 mls/hr IVPB DAILY [facility] Last Admin: 09/15/16 08:30 Dose: 100 mls/hr Insulin Human Regular (Humulin R) 0 units SC ACCU-CHECK [facility] PRN Reason: Protocol Last Admin: 09/15/16 16:50 Dose: Not Given Lactulose (Enulose) 20 gm PO DAILY [facility] Last Admin: 09/15/16 08:31 Dose: 20 gm Multivitamins/Minerals (Therapeutic-M Tab) 1 tab PO DAILY [facility] Last Admin: 09/15/16 08:31 Dose: 1 tab Pantoprazole Sodium (Protonix Inj) 40 mg IVP DAILY [facility] Last Admin: 09/15/16 08:32 Dose: 40 mg Rifaximin (Xifaxan) 550 mg PO BID [facility] Last Admin: 09/15/16 18:39 Dose: Not Given Spironolactone (Aldactone) 50 mg PO DAILY [facility] Last Admin: 09/15/16 08:30 Dose: 50 mg Thiamine HCl (Vitamin B1 Tab) 100 mg PO DAILY [facility] Last Admin: 09/15/16 08:31 Dose: 100 mg - Labs Labs: 09/15/16 05:00 09/15/16 05:00 PT 13.9 SECONDS (9.6-11.2) H 09/15/16 12:05 INR 1.34 (0.92-1.08) H 09/15/16 12:05 APTT 28.7 SECONDS (23.3-32.5) 09/15/16 12:05 Assessment and Plan - Assessment and Plan (Free Text) Assessment: NONA .. RENAL FUNCTION IMPROVING HYPERNATREMIA .. BETTER .. NA 144 S/P VDRF .. EXTUBATED MULTIPLE CO MORBIDITIES P : START IVF D5 1/2 NS AT 75 CC/H C/O CURRENT CARE
[2016-09-15] MEDS: Dextrose 5%/0.45% NS 1,000 ML IV SCH (21:30)
[2016-09-16] MEDS: Albuterol-Ipratrop 3 mg / 0.5 (3 ml) UD INH SCH ×4 (01:01→19:02)
[2016-09-16 05:01] LABS: ABG ALLEN TEST YES; ARTERIAL BLOOD GAS MODE VENTI MASK; ARTERIAL BLOOD GAS O2 CAPACITY 16.9 mL/dL (16-24); ARTERIAL BLOOD GAS O2 CONTENT 16.4 ML/dL (15-23); ARTERIAL BLOOD GAS PH 7.39 (7.35-7.45); ARTERIAL BLOOD GAS PO2 80 mm/Hg (80-100); ARTERIAL BLOOD HGB O2 SAT 94.3 % (95.0-98.0); CARBOXYHEMOGLOBIN 1.8 % (0.5-1.5); HHB 2.9 % (0.0-5.0)
[2016-09-16 05:21] LABS: HEMATOCRIT 36.7 % (35.0-51.0); MEAN CELL VOLUME 93.7 fl (80.0-94.0); MEAN CORPUSCULAR HEMOGLOBIN 30.6 pg (27.0-31.0); MEAN CORPUSCULAR HGB CONC 32.6 g/dL (33.0-37.0); RED CELL DISTRIBUTION WIDTH 14.9 % (11.5-14.5); WHITE BLOOD COUNT 6.5 K/uL (4.8-10.8)
[2016-09-16 05:43] LABS: ALB/GLOB RATIO 0.6 (1.0-2.1); ALKALINE PHOSPHATASE 129 U/L (38-126); ALT/SGPT 67 U/L (21-72); AST/SGOT 79 U/L (17-59); BILIRUBIN,TOTAL 1.8 mg/dl (0.2-1.3); BLOOD UREA NITROGEN 18 mg/dl (9-20); CALCIUM 8.4 mg/dL (8.4-10.2); CARBON DIOXIDE 30 mmol/L (22-30); CHLORIDE 108 mmol/L (98-107); GFR AFRICAN-AMERICAN > 60; GLUCOSE,RANDOM 145 mg/dL (75-110); POTASSIUM 4.1 MMOL/L (3.6-5.0); SODIUM 149 mmol/l (132-148); TOTAL PROTEIN 6.4 G/DL (6.3-8.2)
[2016-09-16] MEDS: Insulin Regular 100 units/ml SC SCH ×4 (07:00→22:04)
--- NOTE | 2016-09-16 07:41 | CP.CCUPN ---
<Merrill Leyva T - Last Filed: 09/16/16 13:41> CCU Subjective - Physician Review Subjective (Free Text): Pt seen and examined at bedside in the ICU. Pt is awake, alert, but not currently oriented to place. Otherwise, pt denied f/c/n/v/d/c, abd pain or distension, or other myalgias. CCU Objective - Vital Signs / Intake & Output Vital Signs (Last 4 hours): Vital Signs Temp Pulse Resp BP Pulse Ox 09/16/16 07:28 98.6 F 09/16/16 06:00 87 32 H 130/97 H 90 L 09/16/16 04:00 98.9 F 82 25 H 135/88 90 L Intake and Output (Last 8hrs): Intake & Output 09/15/16 09/16/16 09/16/16 22:59 06:59 14:59 Intake Total 780 600 Output Total 1360 550 Balance -580 50 Intake: IV 580 600 Intake, Piggyback 200 Output: Urine 1360 550 Urethral ([place]) 1360 550 - Physical Exam Head: Positive for: Atraumatic, Normocephalic Pupils: Positive for: PERRL. Negative for: Sluggish, Non-Reactive Extroacular Muscles: Positive for: EOMI Conjunctiva: Positive for: Normal. Negative for: Injected, Icteric Mouth: Positive for: Dry Nose (External): Positive for: Atraumatic. Negative for: Abrasion Nose (Internal): Positive for: Normal Inspection Neck: Positive for: Normal Range of Motion, Trachea Midline. Negative for: JVD , Lymphadenopathy, Bruit Respiratory/Chest: Positive for: Decreased Breath Sounds, Rhonchi (moderate rhonchi throughout). Negative for: Respiratory Distress Cardiovascular: Positive for: Regular Rate and Rhythm, Normal S1, S2, Peripheal Pulses Present. Negative for: Murmurs Abdomen: Positive for: Normal Bowel Sounds. Negative for: Tenderness, Peritoneal Signs, Guarding Upper Extremity: Positive for: Normal Inspection, NORMAL PULSES. Negative for: Cyanosis, Edema Lower Extremity: Positive for: Normal Inspection, NORMAL PULSES. Negative for: Edema, CALF TENDERNESS Neurological: Positive for: GCS=15, CN II-XII Intact, Speech Normal (but low tone, quiet, and limited by respiratory issues) Skin: Positive for: Warm, Dry, Normal Color. Negative for: Rashes Psychiatric: Positive for: Alert, Oriented x 3 - Medications Active Medications: Active Medications Generic Name Dose Route Start Last Admin Trade Name Freq PRN Reason Stop Dose Admin Acetaminophen 650 mg 09/10/16 02:44 09/15/16 01:19 Tylenol 650mg/20.3ml Solution Ud PO 650 mg Q6 PRN Administration Fever >100.4 F Albuterol/Ipratropium 3 ml 09/16/16 02:00 09/16/16 07:38 Duoneb 3 Mg/0.5 Mg (3 Ml) Ud INH 3 ml RQ6 [facility] Administration Carvedilol 3.125 mg 09/14/16 11:30 09/15/16 20:28 Coreg PO 3.125 mg Q12 [facility] Administration Folic Acid 1 mg 09/04/16 09:00 09/15/16 08:31 Folic Acid PO 1 mg DAILY [facility] Administration Levetiracetam 500 mg/ Sodium 105 mls @ 210 mls/hr 09/08/16 12:45 09/15/16 20:23 Chloride IVPB 210 mls/hr Q12 [facility] Administration Fluconazole 100 mls @ 100 mls/hr 09/10/16 09:00 09/15/16 08:30 Diflucan Iv 200 Mg/100 Ml Ns IVPB 100 mls/hr DAILY [facility] Administration Insulin Human Regular 0 units 09/03/16 23:00 09/15/16 23:37 Humulin R SC Not Given ACCU-CHECK [facility] Protocol Lactulose 20 gm 09/13/16 11:25 09/15/16 08:31 Enulose PO 20 gm DAILY [facility] Administration Multivitamins/Minerals 1 tab 09/04/16 09:00 09/15/16 08:31 Therapeutic-M Tab PO 1 tab DAILY [facility] Administration Pantoprazole Sodium 40 mg 09/06/16 09:00 09/15/16 08:32 Protonix Inj IVP 40 mg DAILY [facility] Administration Rifaximin 550 mg 09/12/16 09:00 09/15/16 18:39 Xifaxan PO Not Given BID [facility] Spironolactone 50 mg 09/14/16 11:15 09/15/16 08:30 Aldactone PO 50 mg DAILY [facility] Administration Thiamine HCl 100 mg 09/04/16 09:00 09/15/16 08:31 Vitamin B1 Tab PO 100 mg DAILY [facility] Administration - Patient Studies Lab Studies: Microbiology Studies 09/14/16 11:07 Gram Stain - Final Trachasp Lab Studies 09/16/16 09/16/16 09/16/16 Range/Units 05:10 04:50 04:30 WBC 6.5 (4.8-10.8) K/uL RBC 3.92 L (4.40-5.90) Mil/uL Hgb 12.0 (12.0-18.0) g/dL Hct 36.7 (35.0-51.0) % MCV 93.7 (80.0-94.0) fl MCH 30.6 (27.0-31.0) pg MCHC 32.6 L (33.0-37.0) g/dL RDW 14.9 H (11.5-14.5) % Plt Count 68 L (130-400) K/uL PT (9.6-11.2) SECONDS INR (0.92-1.08) APTT (23.3-32.5) SECONDS pCO2 52 H (35-45) mm/Hg pO2 80 (80-100) mm/Hg HCO3 29.0 H (21-28) mmol/L ABG pH 7.39 (7.35-7.45) ABG Total CO2 33.1 H (22-28) mmol/L ABG O2 Saturation 97.0 (95-98) % ABG O2 Content 16.4 (15-23) ML/dL ABG Base Excess 5.3 H (-2.0-3.0) mmol/L ABG Hemoglobin 12.3 (11.7-17.4) g/dL ABG Carboxyhemoglobin 1.8 H (0.5-1.5) % POC ABG HHb (Measured) 2.9 (0.0-5.0) % ABG Methemoglobin 1.0 (0.0-3.0) % ABG O2 Capacity 16.9 (16-24) mL/dL Jim Test Yes A-a O2 Difference 212.0 mm/Hg Hgb O2 Saturation 94.3 L (95.0-98.0) % Vent Mode Venti mask FiO2 50.0 % PEEP Pressure Support CPAP Crit Value Read Back Blood Gas Notified Time 503 Sodium 149 H (132-148) mmol/l Potassium 4.1 (3.6-5.0) MMOL/L Chloride 108 H (98-107) mmol/L Carbon Dioxide 30 (22-30) mmol/L Anion Gap 15 (10-20) BUN 18 (9-20) mg/dl Creatinine 1.1 (0.8-1.5) mg/dL Est GFR ( Amer) > 60 Est GFR (Non-Af Amer) > 60 POC Glucose (mg/dL) 122 H (65-110) mg/dL Random Glucose 145 H (75-110) mg/dL Calcium 8.4 (8.4-10.2) mg/dL Total Bilirubin 1.8 H (0.2-1.3) mg/dl AST 79 H (17-59) U/L ALT 67 (21-72) U/L Alkaline Phosphatase 129 H (38-126) U/L Total Protein 6.4 (6.3-8.2) G/DL Albumin 2.5 L (3.5-5.0) g/dL Globulin 3.9 (2.2-3.9) gm/dL Albumin/Globulin Ratio 0.6 L (1.0-2.1) 09/15/16 09/15/16 09/15/16 Range/Units 21:31 19:33 16:21 WBC (4.8-10.8) K/uL RBC (4.40-5.90) Mil/uL Hgb (12.0-18.0) g/dL Hct (35.0-51.0) % MCV (80.0-94.0) fl MCH (27.0-31.0) pg MCHC (33.0-37.0) g/dL RDW (11.5-14.5) % Plt Count (130-400) K/uL PT (9.6-11.2) SECONDS INR (0.92-1.08) APTT (23.3-32.5) SECONDS pCO2 46 H (35-45) mm/Hg pO2 80 (80-100) mm/Hg HCO3 29.7 H (21-28) mmol/L ABG pH 7.44 (7.35-7.45) ABG Total CO2 32.6 H (22-28) mmol/L ABG O2 Saturation 97.4 (95-98) % ABG O2 Content 15.9 (15-23) ML/dL ABG Base Excess 6.2 H (-2.0-3.0) mmol/L ABG Hemoglobin 11.9 (11.7-17.4) g/dL ABG Carboxyhemoglobin 1.7 H (0.5-1.5) % POC ABG HHb (Measured) 2.5 (0.0-5.0) % ABG Methemoglobin 1.1 (0.0-3.0) % ABG O2 Capacity 16.3 (16-24) mL/dL Jim Test Yes A-a O2 Difference 219.0 mm/Hg Hgb O2 Saturation 94.7 L (95.0-98.0) % Vent Mode FiO2 50.0 % PEEP Pressure Support CPAP Crit Value Read Back Blood Gas Notified Time Sodium (132-148) mmol/l Potassium (3.6-5.0) MMOL/L Chloride (98-107) mmol/L Carbon Dioxide (22-30) mmol/L Anion Gap (10-20) BUN (9-20) mg/dl Creatinine (0.8-1.5) mg/dL Est GFR ( Amer) Est GFR (Non-Af Amer) POC Glucose (mg/dL) 99 113 H (65-110) mg/dL Random Glucose (75-110) mg/dL Calcium (8.4-10.2) mg/dL Total Bilirubin (0.2-1.3) mg/dl AST (17-59) U/L ALT (21-72) U/L Alkaline Phosphatase (38-126) U/L Total Protein (6.3-8.2) G/DL Albumin (3.5-5.0) g/dL Globulin (2.2-3.9) gm/dL Albumin/Globulin Ratio (1.0-2.1) 09/15/16 09/15/16 09/15/16 Range/Units 16:15 12:05 12:03 WBC (4.8-10.8) K/uL RBC (4.40-5.90) Mil/uL Hgb (12.0-18.0) g/dL Hct (35.0-51.0) % MCV (80.0-94.0) fl MCH (27.0-31.0) pg MCHC (33.0-37.0) g/dL RDW (11.5-14.5) % Plt Count (130-400) K/uL PT 13.9 H (9.6-11.2) SECONDS INR 1.34 H (0.92-1.08) APTT 28.7 (23.3-32.5) SECONDS pCO2 53 H 41 (35-45) mm/Hg pO2 80 100 (80-100) mm/Hg HCO3 28.8 H 29.9 H (21-28) mmol/L ABG pH 7.38 7.48 H (7.35-7.45) ABG Total CO2 33.0 H 31.8 H (22-28) mmol/L ABG O2 Saturation 96.9 99.0 H (95-98) % ABG O2 Content 15.8 15.8 (15-23) ML/dL ABG Base Excess 5.1 H 6.4 H (-2.0-3.0) mmol/L ABG Hemoglobin 11.9 11.5 L (11.7-17.4) g/dL ABG Carboxyhemoglobin 1.5 1.4 (0.5-1.5) % POC ABG HHb (Measured) 3.0 1.0 (0.0-5.0) % ABG Methemoglobin 1.2 0.7 (0.0-3.0) % ABG O2 Capacity 16.3 16.0 (16-24) mL/dL Jim Test Yes Yes A-a O2 Difference 210.0 170.0 mm/Hg Hgb O2 Saturation 94.3 L 96.9 (95.0-98.0) % Vent Mode Cpap FiO2 50.0 45.0 % PEEP 5 Pressure Support 10 CPAP 5 Crit Value Read Back y Blood Gas Notified Time Sodium (132-148) mmol/l Potassium (3.6-5.0) MMOL/L Chloride (98-107) mmol/L Carbon Dioxide (22-30) mmol/L Anion Gap (10-20) BUN (9-20) mg/dl Creatinine (0.8-1.5) mg/dL Est GFR ( Amer) Est GFR (Non-Af Amer) POC Glucose (mg/dL) (65-110) mg/dL Random Glucose (75-110) mg/dL Calcium (8.4-10.2) mg/dL Total Bilirubin (0.2-1.3) mg/dl AST (17-59) U/L ALT (21-72) U/L Alkaline Phosphatase (38-126) U/L Total Protein (6.3-8.2) G/DL Albumin (3.5-5.0) g/dL Globulin (2.2-3.9) gm/dL Albumin/Globulin Ratio (1.0-2.1) 09/15/16 Range/Units 11:08 WBC (4.8-10.8) K/uL RBC (4.40-5.90) Mil/uL Hgb (12.0-18.0) g/dL Hct (35.0-51.0) % MCV (80.0-94.0) fl MCH (27.0-31.0) pg MCHC (33.0-37.0) g/dL RDW (11.5-14.5) % Plt Count (130-400) K/uL PT (9.6-11.2) SECONDS INR (0.92-1.08) APTT (23.3-32.5) SECONDS pCO2 (35-45) mm/Hg pO2 (80-100) mm/Hg HCO3 (21-28) mmol/L ABG pH (7.35-7.45) ABG Total CO2 (22-28) mmol/L ABG O2 Saturation (95-98) % ABG O2 Content (15-23) ML/dL ABG Base Excess (-2.0-3.0) mmol/L ABG Hemoglobin (11.7-17.4) g/dL ABG Carboxyhemoglobin (0.5-1.5) % POC ABG HHb (Measured) (0.0-5.0) % ABG Methemoglobin (0.0-3.0) % ABG O2 Capacity (16-24) mL/dL Jim Test A-a O2 Difference mm/Hg Hgb O2 Saturation (95.0-98.0) % Vent Mode FiO2 % PEEP Pressure Support CPAP Crit Value Read Back Blood Gas Notified Time Sodium (132-148) mmol/l Potassium (3.6-5.0) MMOL/L Chloride (98-107) mmol/L Carbon Dioxide (22-30) mmol/L Anion Gap (10-20) BUN (9-20) mg/dl Creatinine (0.8-1.5) mg/dL Est GFR ( Amer) Est GFR (Non-Af Amer) POC Glucose (mg/dL) 174 H (65-110) mg/dL Random Glucose (75-110) mg/dL Calcium (8.4-10.2) mg/dL Total Bilirubin (0.2-1.3) mg/dl AST (17-59) U/L ALT (21-72) U/L Alkaline Phosphatase (38-126) U/L Total Protein (6.3-8.2) G/DL Albumin (3.5-5.0) g/dL Globulin (2.2-3.9) gm/dL Albumin/Globulin Ratio (1.0-2.1) Laboratory Results - last 24 hr 09/15/16 09/15/16 09/15/16 11:08 12:03 12:05 WBC RBC Hgb Hct MCV MCH MCHC RDW Plt Count PT 13.9 H INR 1.34 H APTT 28.7 pCO2 41 pO2 100 HCO3 29.9 H ABG pH 7.48 H ABG Total CO2 31.8 H ABG O2 Saturation 99.0 H ABG O2 Content 15.8 ABG Base Excess 6.4 H ABG Hemoglobin 11.5 L ABG Carboxyhemoglobin 1.4 POC ABG HHb (Measured) 1.0 ABG Methemoglobin 0.7 ABG O2 Capacity 16.0 Jim Test Yes A-a O2 Difference 170.0 Hgb O2 Saturation 96.9 Vent Mode Cpap FiO2 45.0 PEEP 5 Pressure Support 10 CPAP 5 Crit Value Read Back Blood Gas Notified Time Sodium Potassium Chloride Carbon Dioxide Anion Gap BUN Creatinine Est GFR ( Amer) Est GFR (Non-Af Amer) POC Glucose (mg/dL) 174 H Random Glucose Calcium Total Bilirubin AST ALT Alkaline Phosphatase Total Protein Albumin Globulin Albumin/Globulin Ratio 09/15/16 09/15/16 09/15/16 16:15 16:21 19:33 WBC RBC Hgb Hct MCV MCH MCHC RDW Plt Count PT INR APTT pCO2 53 H 46 H pO2 80 80 HCO3 28.8 H 29.7 H ABG pH 7.38 7.44 ABG Total CO2 33.0 H 32.6 H ABG O2 Saturation 96.9 97.4 ABG O2 Content 15.8 15.9 ABG Base Excess 5.1 H 6.2 H ABG Hemoglobin 11.9 11.9 ABG Carboxyhemoglobin 1.5 1.7 H POC ABG HHb (Measured) 3.0 2.5 ABG Methemoglobin 1.2 1.1 ABG O2 Capacity 16.3 16.3 Jim Test Yes Yes A-a O2 Difference 210.0 219.0 Hgb O2 Saturation 94.3 L 94.7 L Vent Mode FiO2 50.0 50.0 PEEP Pressure Support CPAP Crit Value Read Back y Blood Gas Notified Time Sodium Potassium Chloride Carbon Dioxide Anion Gap BUN Creatinine Est GFR ( Amer) Est GFR (Non-Af Amer) POC Glucose (mg/dL) 113 H Random Glucose Calcium Total Bilirubin AST ALT Alkaline Phosphatase Total Protein Albumin Globulin Albumin/Globulin Ratio 09/15/16 09/16/16 09/16/16 21:31 04:30 04:50 WBC 6.5 RBC 3.92 L Hgb 12.0 Hct 36.7 MCV 93.7 MCH 30.6 MCHC 32.6 L RDW 14.9 H Plt Count 68 L PT INR APTT pCO2 52 H pO2 80 HCO3 29.0 H ABG pH 7.39 ABG Total CO2 33.1 H ABG O2 Saturation 97.0 ABG O2 Content 16.4 ABG Base Excess 5.3 H ABG Hemoglobin 12.3 ABG Carboxyhemoglobin 1.8 H POC ABG HHb (Measured) 2.9 ABG Methemoglobin 1.0 ABG O2 Capacity 16.9 Jim Test Yes A-a O2 Difference 212.0 Hgb O2 Saturation 94.3 L Vent Mode Venti mask FiO2 50.0 PEEP Pressure Support CPAP Crit Value Read Back Blood Gas Notified Time 503 Sodium 149 H Potassium 4.1 Chloride 108 H Carbon Dioxide 30 Anion Gap 15 BUN 18 Creatinine 1.1 Est GFR ( Amer) > 60 Est GFR (Non-Af Amer) > 60 POC Glucose (mg/dL) 99 Random Glucose 145 H Calcium 8.4 Total Bilirubin 1.8 H AST 79 H ALT 67 Alkaline Phosphatase 129 H Total Protein 6.4 Albumin 2.5 L Globulin 3.9 Albumin/Globulin Ratio 0.6 L 09/16/16 05:10 WBC RBC Hgb Hct MCV MCH MCHC RDW Plt Count PT INR APTT pCO2 pO2 HCO3 ABG pH ABG Total CO2 ABG O2 Saturation ABG O2 Content ABG Base Excess ABG Hemoglobin ABG Carboxyhemoglobin POC ABG HHb (Measured) ABG Methemoglobin ABG O2 Capacity Jim Test A-a O2 Difference Hgb O2 Saturation Vent Mode FiO2 PEEP Pressure Support CPAP Crit Value Read Back Blood Gas Notified Time Sodium Potassium Chloride Carbon Dioxide Anion Gap BUN Creatinine Est GFR ( Amer) Est GFR (Non-Af Amer) POC Glucose (mg/dL) 122 H Random Glucose Calcium Total Bilirubin AST ALT Alkaline Phosphatase Total Protein Albumin Globulin Albumin/Globulin Ratio Fingerstick Blood Sugar Results: 122 Critical Care Progress Note - Nutrition Nutrition: Nutrition Category Date Time Status Liquid Diet [DIET] Diets 09/15/16 Dinner Active Assessment/Plan - Assessment and Plan (Free Text) Plan: 51 yo M w PMHx of HTN, Crohn's, and etoh dependency was admitted for seizures, etoh withdrawal, and is currently in the ICU for hypercapnia 1) Acute respiratory failure with hypercapnia -Hypercapnia has improved w pCO@ of 43 this AM -HFNC 20lpm 50% -Teflaro 200mg IVPB Q12H -Fluconazole 200mg IVPB Daily -Duonebs Q6H [facility] -Will continue to provide diuresis PRN if warranted in order to reduce 3rd spacing -f/u Respiratory function -f/u ABG 2) Congestive Cardiomyopathy -Likely etoh induced -LV Systolic Fcn severely impaired, EF of 15-20% -Severe Mitral Regurg, Moderate Tricuspid Regurg -Coreg 3.125mg Q12H -Amiodarone 200mg PO BID -f/u Vitals 3) Hypomagnesemia -Mg currently 1.5 -Mg Sulfate 2gm IVPB ONCE -f/u Mg lvl 4) Acute Renal Failure -Improved -BUN/Cr: 28/1.3 -C[address]: Moderate to large bilateral pleural effusion associated w compressive atelectasis of the bilateral lower lobes and partial atelectasis of the right middle lobe. -f/u labs -f/u I/O's 5) Hepatic encephalopathy -Rifaximin 550 mg PO BID, as per GI 6) Aspiration pneumonia -Teflaro 200mg IVPB Q12H 7) Constipation -Lactulose 20 gm PO Daily 8) Altered mental status -Stable 9) Thrombocytopenia -No signs of active bleed at this time <Moody Mitchell - Last Filed: 09/16/16 13:54> CCU Subjective - Physician Review Subjective (Free Text): Attestation: Patient seen and examined at the bedside with Resident Dr. oFx Leyva; and I agree with his outline of plans and management documented below as discussed on AM rounds reflecting my review of all applicable clinical data, and participation in the care of the patient throughout the day in ICU; today, September 16, 2016.
--- NOTE | 2016-09-16 07:59 | CP.PCM.PN ---
<Tiana June - Last Filed: 09/16/16 11:50> Subjective - Date & Time of Evaluation Date of Evaluation: 09/16/16 Time of Evaluation: 07:57 - Subjective Subjective: Gastroenterology Fellow/PGY4 Progress Note Patient extubated yesterday. Easily arousable to verbal stimuli and oriented x3. A 12-point review of systems is negative except for as above. Nursing notes loose stools overnight with daily lactulose. Objective - Vital Signs/Intake and Output Vital Signs (last 24 hours): Temp Pulse Resp BP Pulse Ox 98.6 F 87 32 H 130/97 H 90 L 09/16/16 07:28 09/16/16 06:00 09/16/16 06:00 09/16/16 06:00 09/16/16 06:00 Intake and Output: 09/16/16 09/16/16 06:59 18:59 Intake Total 1128 Output Total 710 Balance 418 - Medications Medications: Current Medications Acetaminophen (Tylenol 650mg/20.3ml Solution Ud) 650 mg PO Q6 PRN PRN Reason: Fever >100.4 F Last Admin: 09/15/16 01:19 Dose: 650 mg Albuterol/Ipratropium (Duoneb 3 Mg/0.5 Mg (3 Ml) Ud) 3 ml INH RQ6 [facility] Last Admin: 09/16/16 07:38 Dose: 3 ml Carvedilol (Coreg) 3.125 mg PO Q12 [facility] Last Admin: 09/15/16 20:28 Dose: 3.125 mg Folic Acid (Folic Acid) 1 mg PO DAILY [facility] Last Admin: 09/15/16 08:31 Dose: 1 mg Levetiracetam 500 mg/ Sodium (Chloride) 105 mls @ 210 mls/hr IVPB Q12 [facility] Last Admin: 09/15/16 20:23 Dose: 210 mls/hr Fluconazole (Diflucan Iv 200 Mg/100 Ml Ns) 100 mls @ 100 mls/hr IVPB DAILY [facility] Last Admin: 09/15/16 08:30 Dose: 100 mls/hr Insulin Human Regular (Humulin R) 0 units SC ACCU-CHECK [facility] PRN Reason: Protocol Last Admin: 09/15/16 23:37 Dose: Not Given Lactulose (Enulose) 20 gm PO DAILY [facility] Last Admin: 09/15/16 08:31 Dose: 20 gm Multivitamins/Minerals (Therapeutic-M Tab) 1 tab PO DAILY [facility] Last Admin: 09/15/16 08:31 Dose: 1 tab Pantoprazole Sodium (Protonix Inj) 40 mg IVP DAILY [facility] Last Admin: 09/15/16 08:32 Dose: 40 mg Rifaximin (Xifaxan) 550 mg PO BID [facility] Last Admin: 09/15/16 18:39 Dose: Not Given Spironolactone (Aldactone) 50 mg PO DAILY [facility] Last Admin: 09/15/16 08:30 Dose: 50 mg Thiamine HCl (Vitamin B1 Tab) 100 mg PO DAILY [facility] Last Admin: 09/15/16 08:31 Dose: 100 mg - Labs Labs: 09/16/16 04:30 09/16/16 04:30 PT 13.9 SECONDS (9.6-11.2) H 09/15/16 12:05 INR 1.34 (0.92-1.08) H 09/15/16 12:05 APTT 28.7 SECONDS (23.3-32.5) 09/15/16 12:05 - Constitutional Appears: Non-toxic, No Acute Distress - Head Exam Head Exam: ATRAUMATIC, NORMOCEPHALIC - Eye Exam Eye Exam: EOMI, PERRL Pupil Exam: PERRL. absent: Miosis, Mydriatic - ENT Exam ENT Exam: Mucous Membranes Moist, Normal Oropharynx - Neck Exam Neck Exam: Full ROM, Normal Inspection - Respiratory Exam Respiratory Exam: Clear to Ausculation Bilateral. absent: Rales, Rhonchi, Wheezes - Cardiovascular Exam Cardiovascular Exam: RRR, +S1, +S2. absent: Gallop, Rubs - GI/Abdominal Exam GI & Abdominal Exam: Soft, Normal Bowel Sounds. absent: Distended, Firm, Guarding, Rigid, Tenderness, Organomegaly, Rebound - Extremities Exam Extremities Exam: absent: Pedal Edema - Neurological Exam Neurological Exam: Awake, Oriented x3 - Psychiatric Exam Psychiatric exam: Flat Affect - Skin Skin Exam: Dry, Intact, Normal Color, Warm Assessment and Plan - Assessment and Plan (Free Text) Assessment: 51 year old male with history of Hypertension, Diabetes, Alcohol Abuse, and Alcoholic cirrhosis presenting with seizure likely secondary to alcohol withdrawal. Status post extubation 09/11 for ventilator dependent respiratory failure for airway protection in setting of alcohol withdrawal complicated by seizure, Vtach/Vfib arrest with ROSC on 09/08/16, ischemic cardiomyopathy, EF15%, reintubation 09/14 for hypercarbic/hypoxic respiratory failure status post extubation 09/15. No prior EGD or colonoscopy. Aspiration pneumonia Alcoholic cirrhosis Hyperbilirubinemia,improving Transaminitis, improving Renal insufficiency, resolved Plan: >ID managing-on Diflucan, completed Ceftaroline >MELD 14 09/15 >continue Lactulose daily, titrate to 2-3 BMs per day >continue Rifaxamin 550mg BID >LFTs improving >daily LFTs, PT/INR >strict I&Os >will benefit from elective CT liver protocol once medically stable >outpatient EGD for variceal screening <Linda Silva MD - Last Filed: 09/16/16 12:00> Objective - Vital Signs/Intake and Output Vital Signs (last 24 hours): Temp Pulse Resp BP Pulse Ox 98.6 F 81 24 128/83 96 09/16/16 07:28 09/16/16 10:00 09/16/16 10:00 09/16/16 10:00 09/16/16 10:00 Intake and Output: 09/16/16 09/16/16 06:59 18:59 Intake Total 1128 575 Output Total 710 500 Balance 418 75 - Medications Medications: Current Medications Acetaminophen (Tylenol 650mg/20.3ml Solution Ud) 650 mg PO Q6 PRN PRN Reason: Fever >100.4 F Last Admin: 09/15/16 01:19 Dose: 650 mg Albuterol/Ipratropium (Duoneb 3 Mg/0.5 Mg (3 Ml) Ud) 3 ml INH RQ6 [facility] Last Admin: 09/16/16 07:38 Dose: 3 ml Amiodarone HCl (Cordarone) 200 mg PO BID [facility] Last Admin: 09/16/16 09:50 Dose: 200 mg Carvedilol (Coreg) 3.125 mg PO Q12 [facility] Last Admin: 09/16/16 09:47 Dose: 3.125 mg Folic Acid (Folic Acid) 1 mg PO DAILY [facility] Last Admin: 09/16/16 09:48 Dose: 1 mg Levetiracetam 500 mg/ Sodium (Chloride) 105 mls @ 210 mls/hr IVPB Q12 [facility] Last Admin: 09/16/16 09:48 Dose: 210 mls/hr Fluconazole (Diflucan Iv 200 Mg/100 Ml Ns) 100 mls @ 100 mls/hr IVPB DAILY [facility] Last Admin: 09/16/16 09:47 Dose: 100 mls/hr Dextrose/Sodium Chloride (Dextrose 5%/0.45% Ns 1000 Ml) 1,000 mls @ 75 mls/hr IV .[id number] [facility] Stop: 09/17/16 21:31 Last Admin: 09/15/16 21:30 Dose: 75 mls/hr Magnesium Sulfate (Magnesium Sulfate 2 Gm/50 Ml Water) 50 mls @ 50 mls/hr IVPB ONCE ONE PRN Reason: 2 GM/HR Stop: 09/16/16 12:11 Ceftaroline Fosamil 200 mg/ (Sodium Chloride) 100 mls @ 100 mls/hr IVPB Q12 [facility] Insulin Human Regular (Humulin R) 0 units SC ACCU-CHECK [facility] PRN Reason: Protocol Last Admin: 09/16/16 11:19 Dose: Not Given Lactulose (Enulose) 20 gm PO DAILY [facility] Last Admin: 09/16/16 09:48 Dose: 20 gm Multivitamins/Minerals (Therapeutic-M Tab) 1 tab PO DAILY [facility] Last Admin: 09/16/16 09:49 Dose: 1 tab Pantoprazole Sodium (Protonix Inj) 40 mg IVP DAILY [facility] Last Admin: 09/16/16 09:49 Dose: 40 mg Rifaximin (Xifaxan) 550 mg PO BID [facility] Last Admin: 09/16/16 09:49 Dose: 550 mg Spironolactone (Aldactone) 50 mg PO DAILY [facility] Last Admin: 09/16/16 09:46 Dose: 50 mg Thiamine HCl (Vitamin B1 Tab) 100 mg PO DAILY [facility] Last Admin: 09/16/16 09:49 Dose: 100 mg - Labs Labs: 09/16/16 04:30 09/16/16 04:30 PT 13.9 SECONDS (9.6-11.2) H 09/15/16 12:05 INR 1.34 (0.92-1.08) H 09/15/16 12:05 APTT 28.7 SECONDS (23.3-32.5) 09/15/16 12:05 Attending/Attestation - Attestation I have personally seen and examined this patient.: Yes I have fully participated in the care of the patient.: Yes I have reviewed all pertinent clinical information, including history, physical exam and plan: Yes Notes (Text): 09/16/16 11:59 Patient seen and examined at bedside with GI fellow. 51 year old male with h/o HTN, DM, EtOH abuse, and EtOH cirrhosis a/w withdrawal seizure, respiratory failure on vent, intubated twice over the hospital course, hospital course complicated by Vtach/Vfib arrest with ROSC on 09/08/16, and ischemic cardiomyopathy,15%. On high flow oxygen today in MICU. Alert, following instructions. Had 2 BM /day Plan: - Continue lactulose bid and rifaximin - titrate to 2 BM/day - LFTs stable - Hepatitis and autoimmune serologies negative - elective CT liver protocol once creatinine improves/acute issues resolve - elective outpatient EGD for variceal screening - Supportive care - Resp status management as per MICU team
[2016-09-16] MEDS: Fluconazole IV 200mg/100 ml NS 100 ML IVPB SCH (09:47)
--- NOTE | 2016-09-16 09:47 | RAD ---
PROCEDURE: CHEST RADIOGRAPH, 1 VIEW HISTORY: 1 day s/p extubation COMPARISON: Comparison is made to the previous study dated 09/15/2016 FINDINGS: LUNGS: Status post extubation. Mild increase in the size of the right lower lung opacity could be due to atelectasis. Otherwise no interval change. PLEURA: No pneumothorax or pleural fluid seen. CARDIOVASCULAR: Cardiomegaly is noted. OSSEOUS STRUCTURES: No significant abnormalities. VISUALIZED UPPER ABDOMEN: Normal. OTHER FINDINGS: None. IMPRESSION: Status post extubation. Slight increase in the size of right lower lung opacity likely due to atelectasis.
[2016-09-16] MEDS: levETIRAcetam 500 MG in Sodium Chloride 0.9% 100 ML IVPB SCH ×2 (09:48→20:10)
[2016-09-16] MEDS: Multivitamin With Minerals Tab PO SCH (09:49)
[2016-09-16 10:28] LABS: MAGNESIUM 1.5 MG/DL (1.6-2.3)
[2016-09-16 10:29] LABS: PHOSPHOROUS 3.1 mg/dl (2.5-4.5)
--- NOTE | 2016-09-16 10:35 | CP.PCM.PN ---
Subjective - Date & Time of Evaluation Date of Evaluation: 09/16/16 Time of Evaluation: 10:10 - Subjective Subjective: Had a bout of nonsustained (9 beat) burst of VT at 5AM today, spontaneously reverting to sinus rhythm remained hemodynamically stable Still requires high O2 supplement with mask to keep adequately oxygenated Sinus rhythm at 80 BPM ( Back on Amiodarone) BP 126/70 mm Hg No gallop, few basal rales+ Labs noted (Serum Mg++ awaited) Objective - Vital Signs/Intake and Output Vital Signs (last 24 hours): Temp Pulse Resp BP Pulse Ox 98.6 F 81 24 128/83 96 09/16/16 07:28 09/16/16 10:00 09/16/16 10:00 09/16/16 10:00 09/16/16 10:00 Intake and Output: 09/16/16 09/16/16 06:59 18:59 Intake Total 1128 575 Output Total 710 500 Balance 418 75 - Medications Medications: Current Medications Acetaminophen (Tylenol 650mg/20.3ml Solution Ud) 650 mg PO Q6 PRN PRN Reason: Fever >100.4 F Last Admin: 09/15/16 01:19 Dose: 650 mg Albuterol/Ipratropium (Duoneb 3 Mg/0.5 Mg (3 Ml) Ud) 3 ml INH RQ6 [facility] Last Admin: 09/16/16 07:38 Dose: 3 ml Amiodarone HCl (Cordarone) 200 mg PO BID [facility] Last Admin: 09/16/16 09:50 Dose: 200 mg Carvedilol (Coreg) 3.125 mg PO Q12 [facility] Last Admin: 09/16/16 09:47 Dose: 3.125 mg Folic Acid (Folic Acid) 1 mg PO DAILY [facility] Last Admin: 09/16/16 09:48 Dose: 1 mg Levetiracetam 500 mg/ Sodium (Chloride) 105 mls @ 210 mls/hr IVPB Q12 [facility] Last Admin: 09/16/16 09:48 Dose: 210 mls/hr Fluconazole (Diflucan Iv 200 Mg/100 Ml Ns) 100 mls @ 100 mls/hr IVPB DAILY [facility] Last Admin: 09/16/16 09:47 Dose: 100 mls/hr Dextrose/Sodium Chloride (Dextrose 5%/0.45% Ns 1000 Ml) 1,000 mls @ 75 mls/hr IV .[id number] [facility] Stop: 09/17/16 21:31 Last Admin: 09/15/16 21:30 Dose: 75 mls/hr Insulin Human Regular (Humulin R) 0 units SC ACCU-CHECK [facility] PRN Reason: Protocol Last Admin: 09/16/16 07:00 Dose: Not Given Lactulose (Enulose) 20 gm PO DAILY [facility] Last Admin: 09/16/16 09:48 Dose: 20 gm Multivitamins/Minerals (Therapeutic-M Tab) 1 tab PO DAILY [facility] Last Admin: 09/16/16 09:49 Dose: 1 tab Pantoprazole Sodium (Protonix Inj) 40 mg IVP DAILY [facility] Last Admin: 09/16/16 09:49 Dose: 40 mg Rifaximin (Xifaxan) 550 mg PO BID [facility] Last Admin: 09/16/16 09:49 Dose: 550 mg Spironolactone (Aldactone) 50 mg PO DAILY [facility] Last Admin: 09/16/16 09:46 Dose: 50 mg Thiamine HCl (Vitamin B1 Tab) 100 mg PO DAILY [facility] Last Admin: 09/16/16 09:49 Dose: 100 mg - Labs Labs: 09/16/16 04:30 09/16/16 04:30 PT 13.9 SECONDS (9.6-11.2) H 09/15/16 12:05 INR 1.34 (0.92-1.08) H 09/15/16 12:05 APTT 28.7 SECONDS (23.3-32.5) 09/15/16 12:05
--- NOTE | 2016-09-16 14:07 | PN ---
DATE: 09/15/2016 The patient seen and examined. The patient is seen for Dr. Ellison while he is away. The patient remains in intensive care unit on mechanical ventilation, orally intubated. The patient is not able to provide informative history or review of system. The patient is awake, responsive, an d communicative via notes. Feels okay. No chest pain or shortness of breath. PHYSICAL EXAMINATION: The patient is orally intubated on mechanical ventilation via endotracheal tube in intensive care uni t. Tolerating current vent setting without any acute respiratory distress. VITAL SIGNS: Temperature 99.8, pulse 74, respiration 16, blood pressure 128/53, saturation 99%. HEENT EXAMINATION: ET tube is in good position and functioning. HEART EXAMINATION: S1, S2 normal, regular. LUNGS: Good bilateral air exchange. Occasional sound. ABDOMEN: Soft, nontender, no organomegaly, no fluid. Bowel sounds are plus. EXTREMITY EXAMINATION: No calf swelling, no tenderness, no acute ischemia. CENTRAL NERVOUS SYSTEM EXAMINATION: Essentially unchanged. DIAGNOSTIC DATA: Available diagnostic data reviewed. Accu-Cheks are 174 and 113. ABG shows pH 7.38 , pCO2 of 33, pO2 of 96.9, saturation is 96.9, pO2 is , pCO2 is . WBC 5.2, hemoglobin 11. 5, hematocrit 34.2, platelets 72. Sodium 144, potassium 4.4, chloride 105, bicarb 28, BUN 28, creati nine 1.3. Gastroenterology and cardiology followup and intervention noted and appreciated. Fur Liner interve ntion noted and appreciated. Chest x-ray shows no active disease. Telemetry monitoring does not reveal significant arrhythmia. Overall, the patient is critically sick in intensive care unit. PLAN: As ordered. Case and plan discussed with systems development consultant. Kal Rogel MD cc: [id number] TT: 09/15/2016 17:42:13 Confirmation # [id number] Dictation # [id number]
--- NOTE | 2016-09-16 19:20 | CP.PCM.PN ---
Subjective - Date & Time of Evaluation Date of Evaluation: 09/16/16 Time of Evaluation: 14:00 - Subjective Subjective: SEEN ON RENAL F/U EXTUBATED .. IN NAD ALERT ANS RESPONSIVE RENAL FUNCTION BACK TO NORMAL NA IS UP TO 149 51 year old male with history of Hypertension, Diabetes, Alcohol Abuse, and Alcoholic cirrhosis presenting with seizure likely secondary to alcohol withdrawal. Status post extubation 09/11 for ventilator dependent respiratory failure for airway protection in setting of alcohol withdrawal complicated by seizure, Vtach/Vfib arrest with ROSC on 09/08/16, ischemic cardiomyopathy, EF15%, reintubation 09/14 for hypercarbic/hypoxic respiratory failure status post extubation 09/15. No prior EGD or colonoscopy. Aspiration pneumonia Alcoholic cirrhosis Hyperbilirubinemia,improving Transaminitis, improving Renal insufficiency, resolved Objective - Vital Signs/Intake and Output Vital Signs (last 24 hours): Temp Pulse Resp BP Pulse Ox 98.3 F 81 19 119/91 H 95 09/16/16 16:00 09/16/16 18:00 09/16/16 19:02 09/16/16 18:00 09/16/16 18:00 Intake and Output: 09/16/16 09/17/16 18:59 06:59 Intake Total 1525 Output Total 1240 Balance 285 - Medications Medications: Current Medications Acetaminophen (Tylenol 650mg/20.3ml Solution Ud) 650 mg PO Q6 PRN PRN Reason: Fever >100.4 F Last Admin: 09/15/16 01:19 Dose: 650 mg Albuterol/Ipratropium (Duoneb 3 Mg/0.5 Mg (3 Ml) Ud) 3 ml INH RQ6 [facility] Last Admin: 09/16/16 19:02 Dose: 3 ml Amiodarone HCl (Cordarone) 200 mg PO BID [facility] Last Admin: 09/16/16 16:21 Dose: 200 mg Carvedilol (Coreg) 3.125 mg PO Q12 [facility] Last Admin: 09/16/16 09:47 Dose: 3.125 mg Folic Acid (Folic Acid) 1 mg PO DAILY [facility] Last Admin: 09/16/16 09:48 Dose: 1 mg Levetiracetam 500 mg/ Sodium (Chloride) 105 mls @ 210 mls/hr IVPB Q12 [facility] Last Admin: 09/16/16 09:48 Dose: 210 mls/hr Fluconazole (Diflucan Iv 200 Mg/100 Ml Ns) 100 mls @ 100 mls/hr IVPB DAILY [facility] Last Admin: 09/16/16 09:47 Dose: 100 mls/hr Dextrose/Sodium Chloride (Dextrose 5%/0.45% Ns 1000 Ml) 1,000 mls @ 75 mls/hr IV .[id number] [facility] Stop: 09/17/16 21:31 Last Admin: 09/15/16 21:30 Dose: 75 mls/hr Ceftaroline Fosamil 200 mg/ (Sodium Chloride) 100 mls @ 100 mls/hr IVPB Q12 [facility] Last Admin: 09/16/16 13:30 Dose: 100 mls/hr Insulin Human Regular (Humulin R) 0 units SC ACCU-CHECK [facility] PRN Reason: Protocol Last Admin: 09/16/16 16:18 Dose: 2 units Lactulose (Enulose) 20 gm PO DAILY [facility] Last Admin: 09/16/16 09:48 Dose: 20 gm Multivitamins/Minerals (Therapeutic-M Tab) 1 tab PO DAILY [facility] Last Admin: 09/16/16 09:49 Dose: 1 tab Pantoprazole Sodium (Protonix Inj) 40 mg IVP DAILY [facility] Last Admin: 09/16/16 09:49 Dose: 40 mg Rifaximin (Xifaxan) 550 mg PO BID [facility] Last Admin: 09/16/16 16:19 Dose: 550 mg Spironolactone (Aldactone) 50 mg PO DAILY [facility] Last Admin: 09/16/16 09:46 Dose: 50 mg Thiamine HCl (Vitamin B1 Tab) 100 mg PO DAILY [facility] Last Admin: 09/16/16 09:49 Dose: 100 mg - Labs Labs: 09/16/16 04:30 09/16/16 04:30 PT 13.9 SECONDS (9.6-11.2) H 09/15/16 12:05 INR 1.34 (0.92-1.08) H 09/15/16 12:05 APTT 28.7 SECONDS (23.3-32.5) 09/15/16 12:05 Assessment and Plan - Assessment and Plan (Free Text) Assessment: NONA .. GABBIE FUNCTION BACK TO WNL HYPERNATREMIA .. DISSOLVE ALL IV MEDS IN D3W COMPATIBLE MULTIPLE COMORBEDITIES
[2016-09-17] MEDS: Dextrose 5%/0.45% NS 1,000 ML IV SCH ×2 (00:23→17:30)
[2016-09-17] MEDS: Albuterol-Ipratrop 3 mg / 0.5 (3 ml) UD INH SCH ×2 (01:08→07:24)
[2016-09-17 07:12] LABS: MEAN CORPUSCULAR HEMOGLOBIN 30.6 pg (27.0-31.0); MEAN CORPUSCULAR HGB CONC 31.9 g/dL (33.0-37.0); RED CELL DISTRIBUTION WIDTH 15.1 % (11.5-14.5); WHITE BLOOD COUNT 8.9 K/uL (4.8-10.8)
[2016-09-17] MEDS: Insulin Regular 100 units/ml SC SCH ×4 (07:13→22:57)
[2016-09-17 07:16] LABS: MEAN CELL VOLUME 95.7 fl (80.0-94.0)
[2016-09-17 07:17] LABS: ALB/GLOB RATIO 0.7 (1.0-2.1); ALKALINE PHOSPHATASE 131 U/L (38-126); ALT/SGPT 62 U/L (21-72); AST/SGOT 69 U/L (17-59); BLOOD UREA NITROGEN 17 mg/dl (9-20); CALCIUM 8.3 mg/dL (8.4-10.2); CARBON DIOXIDE 29 mmol/L (22-30); CHLORIDE 104 mmol/L (98-107); GFR AFRICAN-AMERICAN > 60; GLUCOSE,RANDOM 218 mg/dL (75-110); POTASSIUM 4.3 MMOL/L (3.6-5.0); SODIUM 140 mmol/l (132-148); TOTAL PROTEIN 6.5 G/DL (6.3-8.2)
--- NOTE | 2016-09-17 08:28 | PN ---
DATE: 09/16/2016 DATE OF SERVICE: 09/16/2016 SUBJECTIVE: The patient seen and examined. Interim events noted. The patient remains in the intens vinicius care unit status post extubation. The patient is awake, responsive, feels okay. Denies any [facility] complaint. No chest pain, no shortness of breath, no other issues reported by nursing staff. PHYSICAL EXAMINATION: GENERAL: The patient is in no acute distress. VITAL SIGNS: Stable. HEART: S1, S2 normal, regular. LUNGS: Good bilateral air exchange. ABDOMEN: Soft, nontender. EXTREMITIES: No edema, no calf swelling, no tenderness, no acute ischemia. CENTRAL NERVOUS SYSTEM: Essentially unchanged. DIAGNOSTIC DATA: Available diagnostic data reviewed. Telemetry monitoring does not reveal significa nt arrhythmias. Sodium 149, potassium 4.1, chloride 108, bicarb 30, BUN 18, creatinine 1.1. SMA-12 shows AST of 79, ALT of 67, pH is 7.4, pCO2 46, pO2 80, saturation 97%. WBC 6.5, hemoglobin 10, anne marie tocrit 36.7, platelets 68. Cardiology, gastroenterology rig site engineer and nephrology consult and followup noted and appreciated. Case was discussed with the rig site engineer. Plan as ordered. Kal Rogel MD cc: [id number] TT: 09/17/2016 08:27:50 Confirmation # [id number] Dictation # [id number]
--- NOTE | 2016-09-17 08:30 | PN ---
DATE: 09/17/2016 The patient seen and examined, interim events noted. Consults noted, appreciated. The patient remai ns in intervention care unit. The patient is sedated, not able to provide informative history. REVIEW OF SYSTEMS: No specific issues provided by nursing staff. No chest pain, no shortness of bubba ath. PHYSICAL EXAMINATION: GENERAL: The patient is in no acute distress. VITAL SIGNS: Stable. HEART: S1, S2 normal, regular. LUNGS: Good bilateral air entry. ABDOMEN: Soft, nontender. EXTREMITIES: No edema, no calf swelling, no tenderness, no acute ischemia. CENTRAL NERVOUS SYSTEM: Essentially unchanged. DIAGNOSTIC DATA: Available diagnostic data ____. Telemetry monitoring does not reveal significant arrhythmia. The patient is tolerating extubation ve ry well. Overall, the patient's general medical condition is slowly improving. PLAN: As ordered. Case and plan discussed with cane packer. Kal Rogel MD cc: [id number] TT: 09/17/2016 08:29:51 Confirmation # [id number] Dictation # [id number]
--- NOTE | 2016-09-17 10:17 | CP.PCM.PN ---
Subjective - Date & Time of Evaluation Date of Evaluation: 09/17/16 Time of Evaluation: 10:13 - Subjective Subjective: Extubated and presently on high flow nasal canula. SpO2 100% on 50% and 20LPM. Obtunded, requires loud verbal stimulus to follow any commands. Breathing pattern is paradoxical. Inspiration is shortened with a snoring like obstructive sound. Air entry is present in both lungs. and breath sounds are relatively well heard. There is no audible wheeze present and few rhonchi are heard in lower lobes. When awakened and asked to cough he is able to make a feeble attempt which is non-productive. His last CXR done yesterday shows poor inspiration and hazy density at the right base. Cardiomegaly and shadowing of the left hemidiaphragm is also noted. Oxygen was reduced to 30% and flow raised to 35LPM. SpO2 remained at 100% and a blood gas was requested to follow. Sedation, which is still necessary at times, remains problematic with regards to his respiratory status. Needs very close monitoring and continual stimulation with cough commands until he is more awake. Objective - Vital Signs/Intake and Output Vital Signs (last 24 hours): Temp Pulse Resp BP Pulse Ox 98.7 F 88 22 131/80 100 09/17/16 08:00 09/17/16 08:00 09/17/16 08:00 09/17/16 08:00 09/17/16 08:00 Intake and Output: 09/16/16 09/17/16 23:59 11:59 Intake Total 1460 680 Output Total 1080 560 Balance 380 120 - Medications Medications: Current Medications Acetaminophen (Tylenol 650mg/20.3ml Solution Ud) 650 mg PO Q6 PRN PRN Reason: Fever >100.4 F Last Admin: 09/15/16 01:19 Dose: 650 mg Albuterol Sulfate (Albuterol 0.083% Inhal Madelin (2.5 Mg/3 Ml) Ud) 2.5 mg INH RQID [facility] Amiodarone HCl (Cordarone) 200 mg PO BID [facility] Last Admin: 09/16/16 16:21 Dose: 200 mg Carvedilol (Coreg) 3.125 mg PO Q12 [facility] Last Admin: 09/16/16 20:11 Dose: 3.125 mg Folic Acid (Folic Acid) 1 mg PO DAILY [facility] Last Admin: 09/16/16 09:48 Dose: 1 mg Levetiracetam 500 mg/ Sodium (Chloride) 105 mls @ 210 mls/hr IVPB Q12 [facility] Last Admin: 09/16/16 20:10 Dose: 210 mls/hr Fluconazole (Diflucan Iv 200 Mg/100 Ml Ns) 100 mls @ 100 mls/hr IVPB DAILY [facility] Last Admin: 09/16/16 09:47 Dose: 100 mls/hr Dextrose/Sodium Chloride (Dextrose 5%/0.45% Ns 1000 Ml) 1,000 mls @ 75 mls/hr IV .[id number] [facility] Stop: 09/17/16 21:31 Last Admin: 09/17/16 00:23 Dose: 75 mls/hr Ceftaroline Fosamil 200 mg/ (Sodium Chloride) 100 mls @ 100 mls/hr IVPB Q12 [facility] Last Admin: 09/16/16 20:17 Dose: 100 mls/hr Insulin Human Regular (Humulin R) 0 units SC ACCU-CHECK [facility] PRN Reason: Protocol Last Admin: 09/17/16 07:13 Dose: Not Given Lactulose (Enulose) 20 gm PO DAILY [facility] Last Admin: 09/16/16 09:48 Dose: 20 gm Multivitamins/Minerals (Therapeutic-M Tab) 1 tab PO DAILY [facility] Last Admin: 09/16/16 09:49 Dose: 1 tab Pantoprazole Sodium (Protonix Inj) 40 mg IVP DAILY [facility] Last Admin: 09/16/16 09:49 Dose: 40 mg Rifaximin (Xifaxan) 550 mg PO BID [facility] Last Admin: 09/16/16 16:19 Dose: 550 mg Spironolactone (Aldactone) 50 mg PO DAILY [facility] Last Admin: 09/16/16 09:46 Dose: 50 mg Thiamine HCl (Vitamin B1 Tab) 100 mg PO DAILY [facility] Last Admin: 09/16/16 09:49 Dose: 100 mg - Labs Labs: 09/17/16 06:00 09/17/16 06:00 PT 13.9 SECONDS (9.6-11.2) H 09/15/16 12:05 INR 1.34 (0.92-1.08) H 09/15/16 12:05 APTT 28.7 SECONDS (23.3-32.5) 09/15/16 12:05 Assessment and Plan (1) Aspiration pneumonia Status: Acute (2) Acute respiratory failure with hypoxia and hypercapnia Status: Acute (3) Pleural effusion Status: Acute (4) Congestive cardiomyopathy Status: Chronic (5) Altered mental status Status: Chronic
[2016-09-17] MEDS: Fluconazole IV 200mg/100 ml NS 100 ML IVPB SCH (10:27)
[2016-09-17] MEDS: levETIRAcetam 500 MG in Sodium Chloride 0.9% 100 ML IVPB SCH ×2 (10:27→20:02)
[2016-09-17] MEDS: Multivitamin With Minerals Tab PO SCH (10:28)
[2016-09-17 10:31] LABS: ABG ALLEN TEST YES; ARTERIAL BLOOD GAS HCO3 26.8 mmol/L (21-28); ARTERIAL BLOOD GAS O2 CAPACITY 18.3 mL/dL (16-24); ARTERIAL BLOOD GAS O2 CONTENT 16.5 ML/dL (15-23); ARTERIAL BLOOD GAS PH 7.32 (7.35-7.45); ARTERIAL BLOOD GAS PO2 57 mm/Hg (80-100); ARTERIAL BLOOD HGB O2 SAT 87.2 % (95.0-98.0); CARBOXYHEMOGLOBIN 2.3 % (0.5-1.5); HHB 9.4 % (0.0-5.0); METHEMOGLOBIN 1.1 % (0.0-3.0)
--- NOTE | 2016-09-17 11:00 | CP.PCM.PN ---
Subjective - Date & Time of Evaluation Date of Evaluation: 09/17/16 Time of Evaluation: 10:58 - Subjective Subjective: RFV: Cirrhosis S: coughing at bedside. Remains extubated. Drowsy/tired. Objective - Vital Signs/Intake and Output Vital Signs (last 24 hours): Temp Pulse Resp BP Pulse Ox 98.7 F 96 H 22 146/93 H 100 09/17/16 08:00 09/17/16 10:26 09/17/16 08:00 09/17/16 10:26 09/17/16 08:00 Intake and Output: 09/17/16 09/17/16 06:59 18:59 Intake Total 1115 75 Output Total 860 40 Balance 255 35 - Medications Medications: Current Medications Acetaminophen (Tylenol 650mg/20.3ml Solution Ud) 650 mg PO Q6 PRN PRN Reason: Fever >100.4 F Last Admin: 09/15/16 01:19 Dose: 650 mg Albuterol Sulfate (Albuterol 0.083% Inhal Madelin (2.5 Mg/3 Ml) Ud) 2.5 mg INH RQID [facility] Amiodarone HCl (Cordarone) 200 mg PO BID [facility] Last Admin: 09/17/16 10:26 Dose: 200 mg Carvedilol (Coreg) 3.125 mg PO Q12 [facility] Last Admin: 09/17/16 10:26 Dose: 3.125 mg Folic Acid (Folic Acid) 1 mg PO DAILY [facility] Last Admin: 09/17/16 10:27 Dose: 1 mg Levetiracetam 500 mg/ Sodium (Chloride) 105 mls @ 210 mls/hr IVPB Q12 [facility] Last Admin: 09/17/16 10:27 Dose: 210 mls/hr Fluconazole (Diflucan Iv 200 Mg/100 Ml Ns) 100 mls @ 100 mls/hr IVPB DAILY [facility] Last Admin: 09/17/16 10:27 Dose: 100 mls/hr Dextrose/Sodium Chloride (Dextrose 5%/0.45% Ns 1000 Ml) 1,000 mls @ 75 mls/hr IV .[id number] [facility] Stop: 09/17/16 21:31 Last Admin: 09/17/16 00:23 Dose: 75 mls/hr Ceftaroline Fosamil 200 mg/ (Sodium Chloride) 100 mls @ 100 mls/hr IVPB Q12 [facility] Last Admin: 09/16/16 20:17 Dose: 100 mls/hr Insulin Human Regular (Humulin R) 0 units SC ACCU-CHECK [facility] PRN Reason: Protocol Last Admin: 09/17/16 07:13 Dose: Not Given Lactulose (Enulose) 20 gm PO DAILY [facility] Last Admin: 09/17/16 10:27 Dose: 20 gm Multivitamins/Minerals (Therapeutic-M Tab) 1 tab PO DAILY [facility] Last Admin: 09/17/16 10:28 Dose: 1 tab Pantoprazole Sodium (Protonix Inj) 40 mg IVP DAILY [facility] Last Admin: 09/17/16 10:28 Dose: 40 mg Rifaximin (Xifaxan) 550 mg PO BID [facility] Last Admin: 09/17/16 10:29 Dose: 550 mg Spironolactone (Aldactone) 50 mg PO DAILY [facility] Last Admin: 09/17/16 10:26 Dose: 50 mg Thiamine HCl (Vitamin B1 Tab) 100 mg PO DAILY [facility] Last Admin: 09/17/16 10:28 Dose: 100 mg - Labs Labs: 09/17/16 06:00 09/17/16 06:00 PT 13.9 SECONDS (9.6-11.2) H 09/15/16 12:05 INR 1.34 (0.92-1.08) H 09/15/16 12:05 APTT 28.7 SECONDS (23.3-32.5) 09/15/16 12:05 - Constitutional Appears: No Acute Distress, Chronically Ill - Head Exam Head Exam: ATRAUMATIC, NORMOCEPHALIC - Respiratory Exam Respiratory Exam: NORMAL BREATHING PATTERN - Cardiovascular Exam Cardiovascular Exam: +S1, +S2 - GI/Abdominal Exam GI & Abdominal Exam: Soft. absent: Tenderness - Neurological Exam Neurological Exam: Awake - Skin Skin Exam: Dry, Warm Assessment and Plan - Assessment and Plan (Free Text) Assessment: 51 year old male with h/o HTN, DM, EtOH abuse, and EtOH cirrhosis a/w withdrawal seizure, respiratory failure on vent, intubated twice over the hospital course, hospital course complicated by Vtach/Vfib arrest with ROSC on , and ischemic cardiomyopathy,15%. 1. Alcoholic cirrhosis 2. Hepatic encephalopathy Plan: - Continue lactulose bid and rifaximin - titrate to 2 BM/day - LFTs stable - Hepatitis and autoimmune serologies negative - elective CT liver protocol once creatinine improves/acute issues resolve - elective outpatient EGD for variceal screening - Supportive care - Resp status management as per MICU team
--- NOTE | 2016-09-17 12:18 | CP.CCUPN ---
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, probably that kept him less awake, but now better, O2 sat and BP stable, sat 95% now CCU Objective - Vital Signs / Intake & Output Vital Signs (Last 4 hours): Vital Signs Temp Pulse Resp BP Pulse Ox 09/17/16 12:00 98.6 F 92 H 24 134/92 H 95 09/17/16 10:26 96 H 146/93 H 09/17/16 10:00 99 H 26 H 146/93 H 100 Intake and Output (Last 8hrs): Intake & Output 09/16/16 09/17/16 09/17/16 22:59 06:59 14:59 Intake Total 1010 605 575 Output Total 605 520 175 Balance 405 85 400 Intake: IV 600 600 375 Intake, Piggyback 200 200 Oral 210 5 Output: Urine 605 520 175 Urethral ([place]) 605 520 175 Other: # Bowel Movements 0 - Physical Exam Narrative Physical Exam (Free Text): 09/17/16 12:17 P/E Neck: No JVD Lungs: scaterred ronchi, rt basal crackles heart; No gallop Abdomen: distended: soft Ext: +1 edema Head: Positive for: Atraumatic, Normocephalic Pupils: Positive for: PERRL. Negative for: Sluggish, Non-Reactive Extroacular Muscles: Positive for: EOMI Conjunctiva: Positive for: Normal. Negative for: Injected, Icteric Mouth: Positive for: Dry Nose (External): Positive for: Atraumatic. Negative for: Abrasion Nose (Internal): Positive for: Normal Inspection Neck: Positive for: Normal Range of Motion, Trachea Midline. Negative for: JVD , Lymphadenopathy, Bruit Respiratory/Chest: Positive for: Decreased Breath Sounds, Rhonchi (moderate rhonchi throughout). Negative for: Respiratory Distress Cardiovascular: Positive for: Regular Rate and Rhythm, Normal S1, S2, Peripheal Pulses Present. Negative for: Murmurs Abdomen: Positive for: Normal Bowel Sounds. Negative for: Tenderness, Peritoneal Signs, Guarding Upper Extremity: Positive for: Normal Inspection, NORMAL PULSES. Negative for: Cyanosis, Edema Lower Extremity: Positive for: Normal Inspection, NORMAL PULSES. Negative for: Edema, CALF TENDERNESS Neurological: Positive for: GCS=15, CN II-XII Intact, Speech Normal (but low tone, quiet, and limited by respiratory issues) Skin: Positive for: Warm, Dry, Normal Color. Negative for: Rashes Psychiatric: Positive for: Alert, Oriented x 3 - Medications Active Medications: Active Medications Generic Name Dose Route Start Last Admin Trade Name Freq PRN Reason Stop Dose Admin Acetaminophen 650 mg 09/10/16 02:44 09/15/16 01:19 Tylenol 650mg/20.3ml Solution Ud PO 650 mg Q6 PRN Administration Fever >100.4 F Albuterol Sulfate 2.5 mg 09/17/16 12:00 Albuterol 0.083% Inhal Madelin (2.5 Mg/3 Ml) Ud INH RQID [facility] Amiodarone HCl 200 mg 09/16/16 09:30 09/17/16 10:26 Cordarone PO 200 mg BID [facility] Administration Carvedilol 3.125 mg 09/14/16 11:30 09/17/16 10:26 Coreg PO 3.125 mg Q12 [facility] Administration Folic Acid 1 mg 09/04/16 09:00 09/17/16 10:27 Folic Acid PO 1 mg DAILY [facility] Administration Levetiracetam 500 mg/ Sodium 105 mls @ 210 mls/hr 09/08/16 12:45 09/17/16 10:27 Chloride IVPB 210 mls/hr Q12 [facility] Administration Fluconazole 100 mls @ 100 mls/hr 09/10/16 09:00 09/17/16 10:27 Diflucan Iv 200 Mg/100 Ml Ns IVPB 100 mls/hr DAILY [facility] Administration Dextrose/Sodium Chloride 1,000 mls @ 75 mls/hr 09/15/16 21:30 09/17/16 00:23 Dextrose 5%/0.45% Ns 1000 Ml IV 09/17/16 21:31 75 mls/hr .[id number] [facility] Administration Ceftaroline Fosamil 200 mg/ 100 mls @ 100 mls/hr 09/16/16 11:15 09/16/16 20:17 Sodium Chloride IVPB 100 mls/hr Q12 [facility] Administration Dextrose/Sodium Chloride 1,000 mls @ 75 mls/hr 09/17/16 11:15 Dextrose 5%/0.45% Ns 1000 Ml IV 09/18/16 11:16 .[id number] [facility] Insulin Human Regular 0 units 09/03/16 23:00 09/17/16 11:39 Humulin R SC 2 units ACCU-CHECK [facility] Administration Protocol Lactulose 20 gm 09/13/16 11:25 09/17/16 10:27 Enulose PO 20 gm DAILY [facility] Administration Multivitamins/Minerals 1 tab 09/04/16 09:00 09/17/16 10:28 Therapeutic-M Tab PO 1 tab DAILY [facility] Administration Pantoprazole Sodium 40 mg 09/06/16 09:00 09/17/16 10:28 Protonix Inj IVP 40 mg DAILY [facility] Administration Rifaximin 550 mg 09/12/16 09:00 09/17/16 10:29 Xifaxan PO 550 mg BID [facility] Administration Spironolactone 50 mg 09/14/16 11:15 09/17/16 10:26 Aldactone PO 50 mg DAILY [facility] Administration Thiamine HCl 100 mg 09/04/16 09:00 09/17/16 10:28 Vitamin B1 Tab PO 100 mg DAILY [facility] Administration - Patient Studies Lab Studies: Microbiology Studies 09/14/16 11:07 Gram Stain - Final Trachasp Sputum Culture - Final NORMAL ORAL [facility]AR[facility]E Lab Studies 09/17/16 09/17/16 09/17/16 Range/Units 10:52 10:30 06:00 WBC 8.9 (4.8-10.8) K/uL RBC 4.29 L (4.40-5.90) Mil/uL Hgb 13.1 (12.0-18.0) g/dL Hct 41.0 (35.0-51.0) % MCV 95.7 H D (80.0-94.0) fl MCH 30.6 (27.0-31.0) pg MCHC 31.9 L (33.0-37.0) g/dL RDW 15.1 H (11.5-14.5) % Plt Count 110 L D (130-400) K/uL pCO2 59 H (35-45) mm/Hg pO2 57 L (80-100) mm/Hg HCO3 26.8 (21-28) mmol/L ABG pH 7.32 L (7.35-7.45) ABG Total CO2 32.2 H (22-28) mmol/L ABG O2 Saturation 90.3 L (95-98) % ABG O2 Content 16.5 (15-23) ML/dL ABG Base Excess 2.8 (-2.0-3.0) mmol/L ABG Hemoglobin 13.5 (11.7-17.4) g/dL ABG Carboxyhemoglobin 2.3 H (0.5-1.5) % POC ABG HHb (Measured) 9.4 H (0.0-5.0) % ABG Methemoglobin 1.1 (0.0-3.0) % ABG O2 Capacity 18.3 (16-24) mL/dL Jim Test Yes A-a O2 Difference 83.0 mm/Hg Hgb O2 Saturation 87.2 L (95.0-98.0) % FiO2 30.0 % Sodium 140 (132-148) mmol/l Potassium 4.3 (3.6-5.0) MMOL/L Chloride 104 (98-107) mmol/L Carbon Dioxide 29 (22-30) mmol/L Anion Gap 11 (10-20) BUN 17 (9-20) mg/dl Creatinine 1.0 (0.8-1.5) mg/dL Est GFR ( Amer) > 60 Est GFR (Non-Af Amer) > 60 POC Glucose (mg/dL) 161 H (65-110) mg/dL Random Glucose 218 H (75-110) mg/dL Calcium 8.3 L (8.4-10.2) mg/dL Total Bilirubin 2.0 H (0.2-1.3) mg/dl AST 69 H (17-59) U/L ALT 62 (21-72) U/L Alkaline Phosphatase 131 H (38-126) U/L Total Protein 6.5 (6.3-8.2) G/DL Albumin 2.6 L (3.5-5.0) g/dL Globulin 3.9 (2.2-3.9) gm/dL Albumin/Globulin Ratio 0.7 L (1.0-2.1) 09/17/16 09/16/16 09/16/16 Range/Units 05:03 21:43 15:58 WBC (4.8-10.8) K/uL RBC (4.40-5.90) Mil/uL Hgb (12.0-18.0) g/dL Hct (35.0-51.0) % MCV (80.0-94.0) fl MCH (27.0-31.0) pg MCHC (33.0-37.0) g/dL RDW (11.5-14.5) % Plt Count (130-400) K/uL pCO2 (35-45) mm/Hg pO2 (80-100) mm/Hg HCO3 (21-28) mmol/L ABG pH (7.35-7.45) ABG Total CO2 (22-28) mmol/L ABG O2 Saturation (95-98) % ABG O2 Content (15-23) ML/dL ABG Base Excess (-2.0-3.0) mmol/L ABG Hemoglobin (11.7-17.4) g/dL ABG Carboxyhemoglobin (0.5-1.5) % POC ABG HHb (Measured) (0.0-5.0) % ABG Methemoglobin (0.0-3.0) % ABG O2 Capacity (16-24) mL/dL Jim Test A-a O2 Difference mm/Hg Hgb O2 Saturation (95.0-98.0) % FiO2 % Sodium (132-148) mmol/l Potassium (3.6-5.0) MMOL/L Chloride (98-107) mmol/L Carbon Dioxide (22-30) mmol/L Anion Gap (10-20) BUN (9-20) mg/dl Creatinine (0.8-1.5) mg/dL Est GFR ( Amer) Est GFR (Non-Af Amer) POC Glucose (mg/dL) 128 H 122 H 165 H (65-110) mg/dL Random Glucose (75-110) mg/dL Calcium (8.4-10.2) mg/dL Total Bilirubin (0.2-1.3) mg/dl AST (17-59) U/L ALT (21-72) U/L Alkaline Phosphatase (38-126) U/L Total Protein (6.3-8.2) G/DL Albumin (3.5-5.0) g/dL Globulin (2.2-3.9) gm/dL Albumin/Globulin Ratio (1.0-2.1) Laboratory Results - last 24 hr 09/16/16 09/16/16 09/17/16 15:58 21:43 05:03 WBC RBC Hgb Hct MCV MCH MCHC RDW Plt Count pCO2 pO2 HCO3 ABG pH ABG Total CO2 ABG O2 Saturation ABG O2 Content ABG Base Excess ABG Hemoglobin ABG Carboxyhemoglobin POC ABG HHb (Measured) ABG Methemoglobin ABG O2 Capacity Jim Test A-a O2 Difference Hgb O2 Saturation FiO2 Sodium Potassium Chloride Carbon Dioxide Anion Gap BUN Creatinine Est GFR ( Amer) Est GFR (Non-Af Amer) POC Glucose (mg/dL) 165 H 122 H 128 H Random Glucose Calcium Total Bilirubin AST ALT Alkaline Phosphatase Total Protein Albumin Globulin Albumin/Globulin Ratio 09/17/16 09/17/16 09/17/16 06:00 10:30 10:52 WBC 8.9 RBC 4.29 L Hgb 13.1 Hct 41.0 MCV 95.7 H D MCH 30.6 MCHC 31.9 L RDW 15.1 H Plt Count 110 L D pCO2 59 H pO2 57 L HCO3 26.8 ABG pH 7.32 L ABG Total CO2 32.2 H ABG O2 Saturation 90.3 L ABG O2 Content 16.5 ABG Base Excess 2.8 ABG Hemoglobin 13.5 ABG Carboxyhemoglobin 2.3 H POC ABG HHb (Measured) 9.4 H ABG Methemoglobin 1.1 ABG O2 Capacity 18.3 Jim Test Yes A-a O2 Difference 83.0 Hgb O2 Saturation 87.2 L FiO2 30.0 Sodium 140 Potassium 4.3 Chloride 104 Carbon Dioxide 29 Anion Gap 11 BUN 17 Creatinine 1.0 Est GFR ( Amer) > 60 Est GFR (Non-Af Amer) > 60 POC Glucose (mg/dL) 161 H Random Glucose 218 H Calcium 8.3 L Total Bilirubin 2.0 H AST 69 H ALT 62 Alkaline Phosphatase 131 H Total Protein 6.5 Albumin 2.6 L Globulin 3.9 Albumin/Globulin Ratio 0.7 L Fingerstick Blood Sugar Results: 161 Critical Care Progress Note - Nutrition Nutrition: Nutrition Category Date Time Status Liquid Diet [DIET] Diets 09/15/16 Dinner Active Assessment/Plan - Assessment and Plan (Free Text) Assessment: Assessment: 51 year old male with h/o HTN, DM, EtOH abuse, and EtOH cirrhosis a/w withdrawal seizure, respiratory failure on vent, intubated twice over the hospital course, hospital course complicated by Vtach/Vfib arrest with ROSC on , and ischemic cardiomyopathy,15%. 1. Alcoholic cirrhosis 2-Resp failure: now extubated, maintaing )2 sat > 93% 3. Hepatic encephalopathy: better 4-CHF with severly reduced EF 5-NONA: cardio-renal syndrome: improved 6-Hyponatremia : better 7-A fib, now in SR Plan: - Continue lactulose bid and rifaximin DC IVF On amiodorone and low dose carrvediolol 3.125 BDm keeping him in SR - titrate to 2 BM/day - LFTs stable -
--- NOTE | 2016-09-17 12:35 | CP.PCM.PN ---
Subjective - Date & Time of Evaluation Date of Evaluation: 09/17/16 Time of Evaluation: 12:20 - Subjective Subjective: Was given Ativan for restlessness during night (again!) with resp depression Today's ABG show higher CO2 levels Pt drowsy but easily arousable Sinus rhythm at 88 BPM BP 124/70 mm Hg No overt volume over load BUN/Creatinine levels continue to drop (Has good tissue perfusion) Stable from cardiac point of view Objective - Vital Signs/Intake and Output Vital Signs (last 24 hours): Temp Pulse Resp BP Pulse Ox 98.6 F 92 H 24 134/92 H 95 09/17/16 12:00 09/17/16 12:00 09/17/16 12:00 09/17/16 12:00 09/17/16 12:00 Intake and Output: 09/17/16 09/17/16 06:59 18:59 Intake Total 1115 575 Output Total 860 175 Balance 255 400 - Medications Medications: Current Medications Acetaminophen (Tylenol 650mg/20.3ml Solution Ud) 650 mg PO Q6 PRN PRN Reason: Fever >100.4 F Last Admin: 09/15/16 01:19 Dose: 650 mg Albuterol Sulfate (Albuterol 0.083% Inhal Madelin (2.5 Mg/3 Ml) Ud) 2.5 mg INH RQID [facility] Amiodarone HCl (Cordarone) 200 mg PO BID [facility] Last Admin: 09/17/16 10:26 Dose: 200 mg Carvedilol (Coreg) 3.125 mg PO Q12 [facility] Last Admin: 09/17/16 10:26 Dose: 3.125 mg Folic Acid (Folic Acid) 1 mg PO DAILY [facility] Last Admin: 09/17/16 10:27 Dose: 1 mg Levetiracetam 500 mg/ Sodium (Chloride) 105 mls @ 210 mls/hr IVPB Q12 [facility] Last Admin: 09/17/16 10:27 Dose: 210 mls/hr Fluconazole (Diflucan Iv 200 Mg/100 Ml Ns) 100 mls @ 100 mls/hr IVPB DAILY [facility] Last Admin: 09/17/16 10:27 Dose: 100 mls/hr Dextrose/Sodium Chloride (Dextrose 5%/0.45% Ns 1000 Ml) 1,000 mls @ 75 mls/hr IV .[id number] [facility] Stop: 09/17/16 21:31 Last Admin: 09/17/16 00:23 Dose: 75 mls/hr Ceftaroline Fosamil 200 mg/ (Sodium Chloride) 100 mls @ 100 mls/hr IVPB Q12 [facility] Last Admin: 09/17/16 12:25 Dose: 100 mls/hr Dextrose/Sodium Chloride (Dextrose 5%/0.45% Ns 1000 Ml) 1,000 mls @ 75 mls/hr IV .[id number] [facility] Stop: 09/18/16 11:16 Insulin Human Regular (Humulin R) 0 units SC ACCU-CHECK [facility] PRN Reason: Protocol Last Admin: 09/17/16 11:39 Dose: 2 units Lactulose (Enulose) 20 gm PO DAILY [facility] Last Admin: 09/17/16 10:27 Dose: 20 gm Multivitamins/Minerals (Therapeutic-M Tab) 1 tab PO DAILY [facility] Last Admin: 09/17/16 10:28 Dose: 1 tab Pantoprazole Sodium (Protonix Inj) 40 mg IVP DAILY [facility] Last Admin: 09/17/16 10:28 Dose: 40 mg Rifaximin (Xifaxan) 550 mg PO BID [facility] Last Admin: 09/17/16 10:29 Dose: 550 mg Spironolactone (Aldactone) 50 mg PO DAILY [facility] Last Admin: 09/17/16 10:26 Dose: 50 mg Thiamine HCl (Vitamin B1 Tab) 100 mg PO DAILY [facility] Last Admin: 09/17/16 10:28 Dose: 100 mg - Labs Labs: 09/17/16 06:00 09/17/16 06:00 PT 13.9 SECONDS (9.6-11.2) H 09/15/16 12:05 INR 1.34 (0.92-1.08) H 09/15/16 12:05 APTT 28.7 SECONDS (23.3-32.5) 09/15/16 12:05
[2016-09-17] MEDS: Albuterol 0.083% Inhal Sol (2.5 mg/3 mL) UD INH SCH ×3 (13:18→20:08)
--- NOTE | 2016-09-18 01:27 | CP.PCM.PN ---
Subjective - Date & Time of Evaluation Date of Evaluation: 09/17/16 Time of Evaluation: 14:00 - Subjective Subjective: SEEN ON RENAL F/U IN ICU REMAINS EXTUBATED FULLY A AND O .. ASKING FOR ICE WATER ALL PREVIOUS EMR REVIEWED RENAL FUNCTION BACK TO WNL .. ELECTROLYTES ARE OK Objective - Vital Signs/Intake and Output Vital Signs (last 24 hours): Temp Pulse Resp BP Pulse Ox 98.1 F 80 25 H 126/79 96 09/18/16 00:00 09/18/16 00:00 09/18/16 00:42 09/18/16 00:00 09/18/16 00:00 Intake and Output: 09/17/16 09/18/16 18:59 07:59 Intake Total 1025 450 Output Total 950 415 Balance 75 35 - Medications Medications: Current Medications Acetaminophen (Tylenol 650mg/20.3ml Solution Ud) 650 mg PO Q6 PRN PRN Reason: Fever >100.4 F Last Admin: 09/15/16 01:19 Dose: 650 mg Albuterol Sulfate (Albuterol 0.083% Inhal Madelin (2.5 Mg/3 Ml) Ud) 2.5 mg INH RQID [facility] Last Admin: 09/17/16 20:08 Dose: 2.5 mg Amiodarone HCl (Cordarone) 200 mg PO BID [facility] Last Admin: 09/17/16 17:28 Dose: Not Given Carvedilol (Coreg) 3.125 mg PO Q12 [facility] Last Admin: 09/17/16 20:18 Dose: 3.125 mg Folic Acid (Folic Acid) 1 mg PO DAILY [facility] Last Admin: 09/17/16 10:27 Dose: 1 mg Levetiracetam 500 mg/ Sodium (Chloride) 105 mls @ 210 mls/hr IVPB Q12 [facility] Last Admin: 09/17/16 20:02 Dose: 210 mls/hr Fluconazole (Diflucan Iv 200 Mg/100 Ml Ns) 100 mls @ 100 mls/hr IVPB DAILY [facility] Last Admin: 09/17/16 10:27 Dose: 100 mls/hr Ceftaroline Fosamil 200 mg/ (Sodium Chloride) 100 mls @ 100 mls/hr IVPB Q12 [facility] Last Admin: 09/17/16 20:05 Dose: 100 mls/hr Dextrose/Sodium Chloride (Dextrose 5%/0.45% Ns 1000 Ml) 1,000 mls @ 75 mls/hr IV .[id number] [facility] Stop: 09/18/16 11:16 Last Admin: 09/17/16 17:30 Dose: 75 mls/hr Insulin Human Regular (Humulin R) 0 units SC ACCU-CHECK [facility] PRN Reason: Protocol Last Admin: 09/17/16 22:57 Dose: Not Given Lactulose (Enulose) 20 gm PO DAILY [facility] Last Admin: 09/17/16 10:27 Dose: 20 gm Multivitamins/Minerals (Therapeutic-M Tab) 1 tab PO DAILY [facility] Last Admin: 09/17/16 10:28 Dose: 1 tab Pantoprazole Sodium (Protonix Inj) 40 mg IVP DAILY [facility] Last Admin: 09/17/16 10:28 Dose: 40 mg Rifaximin (Xifaxan) 550 mg PO BID [facility] Last Admin: 09/17/16 17:31 Dose: Not Given Spironolactone (Aldactone) 50 mg PO DAILY [facility] Last Admin: 09/17/16 10:26 Dose: 50 mg Thiamine HCl (Vitamin B1 Tab) 100 mg PO DAILY [facility] Last Admin: 09/17/16 10:28 Dose: 100 mg - Labs Labs: 09/17/16 06:00 09/17/16 06:00 PT 13.9 SECONDS (9.6-11.2) H 09/15/16 12:05 INR 1.34 (0.92-1.08) H 09/15/16 12:05 APTT 28.7 SECONDS (23.3-32.5) 09/15/16 12:05 Assessment and Plan - Assessment and Plan (Free Text) Assessment: NONA .. RENAL FUNCTION BACK TO WNL ELECTROLYTES BACK TO WNL NA IS 140 .. WAS 149 S/P INTUBATION ETOH WITHDRAWAL P : C/O CURRENT CARE C/O CURRENT IVF UNTIL PT CAN RESUME NORMAL DIET AND FLUID INTAKE
[2016-09-18] MEDS: Insulin Regular 100 units/ml SC SCH ×4 (06:10→22:03)
[2016-09-18] MEDS: Dextrose 5%/0.45% NS 1,000 ML IV SCH ×2 (06:21→06:26)
[2016-09-18 06:34] LABS: HEMATOCRIT 37.2 % (35.0-51.0); MEAN CELL VOLUME 95.1 fl (80.0-94.0); MEAN CORPUSCULAR HEMOGLOBIN 30.6 pg (27.0-31.0); MEAN CORPUSCULAR HGB CONC 32.2 g/dL (33.0-37.0); RED CELL DISTRIBUTION WIDTH 14.9 % (11.5-14.5); WHITE BLOOD COUNT 5.7 K/uL (4.8-10.8)
[2016-09-18 06:49] LABS: ALB/GLOB RATIO 0.7 (1.0-2.1); ALKALINE PHOSPHATASE 124 U/L (38-126); ALT/SGPT 57 U/L (21-72); AST/SGOT 66 U/L (17-59); BILIRUBIN,TOTAL 1.5 mg/dl (0.2-1.3); BLOOD UREA NITROGEN 17 mg/dl (9-20); CALCIUM 8.4 mg/dL (8.4-10.2); CARBON DIOXIDE 31 mmol/L (22-30); CHLORIDE 106 mmol/L (98-107); GFR AFRICAN-AMERICAN > 60; GLUCOSE,RANDOM 134 mg/dL (75-110); POTASSIUM 4.3 MMOL/L (3.6-5.0); SODIUM 140 mmol/l (132-148)
[2016-09-18] MEDS: Albuterol 0.083% Inhal Sol (2.5 mg/3 mL) UD INH SCH ×4 (07:36→19:51)
--- NOTE | 2016-09-18 09:05 | CP.PCM.PN ---
Subjective - Date & Time of Evaluation Date of Evaluation: 09/18/16 Time of Evaluation: 08:40 - Subjective Subjective: Last night no sedation was given for restlessness Pt mildly confused and mumbles incomprehensible answers Afebrile Pulse ox 94-95% on N/C O2 supplement Sinus rhythm at 84 BPM/BP 114/74 mm Hg Had a bout of 5beats of VT (Await Mg+ + levels) Labs continue to show improving BUN/ Creatinine and AST/ALT and Alk phos Pt back on Amiodarone Objective - Vital Signs/Intake and Output Vital Signs (last 24 hours): Temp Pulse Resp BP Pulse Ox 97.6 F 86 13 137/89 95 09/18/16 08:00 09/18/16 08:00 09/18/16 08:00 09/18/16 08:00 09/18/16 08:00 Intake and Output: 09/18/16 09/18/16 06:59 18:59 Intake Total 75 Output Total 225 Balance -150 - Medications Medications: Current Medications Acetaminophen (Tylenol 650mg/20.3ml Solution Ud) 650 mg PO Q6 PRN PRN Reason: Fever >100.4 F Last Admin: 09/15/16 01:19 Dose: 650 mg Albuterol Sulfate (Albuterol 0.083% Inhal Madelin (2.5 Mg/3 Ml) Ud) 2.5 mg INH RQID [facility] Last Admin: 09/18/16 07:36 Dose: 2.5 mg Amiodarone HCl (Cordarone) 200 mg PO BID [facility] Last Admin: 09/17/16 17:28 Dose: Not Given Carvedilol (Coreg) 3.125 mg PO Q12 [facility] Last Admin: 09/17/16 20:18 Dose: 3.125 mg Folic Acid (Folic Acid) 1 mg PO DAILY [facility] Last Admin: 09/17/16 10:27 Dose: 1 mg Levetiracetam 500 mg/ Sodium (Chloride) 105 mls @ 210 mls/hr IVPB Q12 [facility] Last Admin: 09/17/16 20:02 Dose: 210 mls/hr Fluconazole (Diflucan Iv 200 Mg/100 Ml Ns) 100 mls @ 100 mls/hr IVPB DAILY [facility] Last Admin: 09/17/16 10:27 Dose: 100 mls/hr Ceftaroline Fosamil 200 mg/ (Sodium Chloride) 100 mls @ 100 mls/hr IVPB Q12 [facility] Last Admin: 09/17/16 20:05 Dose: 100 mls/hr Dextrose/Sodium Chloride (Dextrose 5%/0.45% Ns 1000 Ml) 1,000 mls @ 75 mls/hr IV .[id number] [facility] Stop: 09/18/16 11:16 Last Admin: 09/18/16 06:26 Dose: 75 mls/hr Insulin Human Regular (Humulin R) 0 units SC ACCU-CHECK [facility] PRN Reason: Protocol Last Admin: 09/18/16 06:10 Dose: Not Given Lactulose (Enulose) 20 gm PO DAILY [facility] Last Admin: 09/17/16 10:27 Dose: 20 gm Multivitamins/Minerals (Therapeutic-M Tab) 1 tab PO DAILY [facility] Last Admin: 09/17/16 10:28 Dose: 1 tab Pantoprazole Sodium (Protonix Inj) 40 mg IVP DAILY [facility] Last Admin: 09/17/16 10:28 Dose: 40 mg Spironolactone (Aldactone) 50 mg PO DAILY [facility] Last Admin: 09/17/16 10:26 Dose: 50 mg Thiamine HCl (Vitamin B1 Tab) 100 mg PO DAILY [facility] Last Admin: 09/17/16 10:28 Dose: 100 mg - Labs Labs: 09/18/16 06:15 09/18/16 06:15 PT 13.9 SECONDS (9.6-11.2) H 09/15/16 12:05 INR 1.34 (0.92-1.08) H 09/15/16 12:05 APTT 28.7 SECONDS (23.3-32.5) 09/15/16 12:05
--- NOTE | 2016-09-18 09:25 | CP.CCUPN ---
CCU Subjective - Physician Review Events Since Last Encounter (Free Text): 09/18/16 09:22 Awake and not confused this am , had a non-sustained run of v-tach this morning. mag is 1.6, will give 1 gm, K and other electrolytes are WNL, renal function improved. Maintaining oxy sat > 95% on HFNC 35L/min and Fio: 0.45. In SR now,on PO amiodorone 200 mg BID. CCU Objective - Vital Signs / Intake & Output Vital Signs (Last 4 hours): Vital Signs Temp Pulse Resp BP Pulse Ox 09/18/16 08:00 97.6 F 86 13 137/89 95 09/18/16 07:36 18 09/18/16 06:00 74 19 118/65 94 L 09/18/16 05:25 24 Intake and Output (Last 8hrs): Intake & Output 09/17/16 09/18/16 09/18/16 21:59 06:59 14:59 Intake Total 75 Output Total 225 Balance -150 Intake: IV 75 Oral Output: Urine 225 Urethral ([place]) 225 Other: # Bowel Movements - Physical Exam Narrative Physical Exam (Free Text): 09/18/16 09:25 p/e Neck: No JVD Lungs: rt base , crackles Abdomen: slight distention, no tenderness, BS +ve Ext: +1 edema Heart: S1S2 reg Head: Positive for: Atraumatic, Normocephalic Pupils: Positive for: PERRL. Negative for: Sluggish, Non-Reactive Extroacular Muscles: Positive for: EOMI Conjunctiva: Positive for: Normal. Negative for: Injected, Icteric Mouth: Positive for: Dry Nose (External): Positive for: Atraumatic. Negative for: Abrasion Nose (Internal): Positive for: Normal Inspection Neck: Positive for: Normal Range of Motion, Trachea Midline. Negative for: JVD , Lymphadenopathy, Bruit Respiratory/Chest: Positive for: Decreased Breath Sounds, Rhonchi (moderate rhonchi throughout). Negative for: Respiratory Distress Cardiovascular: Positive for: Regular Rate and Rhythm, Normal S1, S2, Peripheal Pulses Present. Negative for: Murmurs Abdomen: Positive for: Normal Bowel Sounds. Negative for: Tenderness, Peritoneal Signs, Guarding Upper Extremity: Positive for: Normal Inspection, NORMAL PULSES. Negative for: Cyanosis, Edema Lower Extremity: Positive for: Normal Inspection, NORMAL PULSES. Negative for: Edema, CALF TENDERNESS Neurological: Positive for: GCS=15, CN II-XII Intact, Speech Normal (but low tone, quiet, and limited by respiratory issues) Skin: Positive for: Warm, Dry, Normal Color. Negative for: Rashes Psychiatric: Positive for: Alert, Oriented x 3 - Medications Active Medications: Active Medications Generic Name Dose Route Start Last Admin Trade Name Freq PRN Reason Stop Dose Admin Acetaminophen 650 mg 09/10/16 02:44 09/15/16 01:19 Tylenol 650mg/20.3ml Solution Ud PO 650 mg Q6 PRN Administration Fever >100.4 F Albuterol Sulfate 2.5 mg 09/17/16 12:00 09/18/16 07:36 Albuterol 0.083% Inhal Madelin (2.5 Mg/3 Ml) Ud INH 2.5 mg RQID [facility] Administration Amiodarone HCl 200 mg 09/16/16 09:30 09/17/16 17:28 Cordarone PO Not Given BID [facility] Carvedilol 3.125 mg 09/14/16 11:30 09/17/16 20:18 Coreg PO 3.125 mg Q12 [facility] Administration Folic Acid 1 mg 09/04/16 09:00 09/17/16 10:27 Folic Acid PO 1 mg DAILY [facility] Administration Levetiracetam 500 mg/ Sodium 105 mls @ 210 mls/hr 09/08/16 12:45 09/17/16 20:02 Chloride IVPB 210 mls/hr Q12 [facility] Administration Fluconazole 100 mls @ 100 mls/hr 09/10/16 09:00 09/17/16 10:27 Diflucan Iv 200 Mg/100 Ml Ns IVPB 100 mls/hr DAILY [facility] Administration Ceftaroline Fosamil 200 mg/ 100 mls @ 100 mls/hr 09/16/16 11:15 09/17/16 20:05 Sodium Chloride IVPB 100 mls/hr Q12 [facility] Administration Dextrose/Sodium Chloride 1,000 mls @ 75 mls/hr 09/17/16 11:15 09/18/16 06:26 Dextrose 5%/0.45% Ns 1000 Ml IV 09/18/16 11:16 75 mls/hr .[id number] [facility] Administration Insulin Human Regular 0 units 09/03/16 23:00 09/18/16 06:10 Humulin R SC Not Given ACCU-CHECK [facility] Protocol Lactulose 20 gm 09/13/16 11:25 09/17/16 10:27 Enulose PO 20 gm DAILY [facility] Administration Multivitamins/Minerals 1 tab 09/04/16 09:00 09/17/16 10:28 Therapeutic-M Tab PO 1 tab DAILY [facility] Administration Pantoprazole Sodium 40 mg 09/06/16 09:00 09/17/16 10:28 Protonix Inj IVP 40 mg DAILY [facility] Administration Spironolactone 50 mg 09/14/16 11:15 09/17/16 10:26 Aldactone PO 50 mg DAILY [facility] Administration Thiamine HCl 100 mg 09/04/16 09:00 09/17/16 10:28 Vitamin B1 Tab PO 100 mg DAILY [facility] Administration - Patient Studies Lab Studies: Microbiology Studies 09/14/16 11:07 Gram Stain - Final Trachasp Sputum Culture - Final NORMAL ORAL KARRIE Lab Studies 09/18/16 09/18/16 09/18/16 Range/Units 08:40 06:15 04:38 WBC 5.7 (4.8-10.8) K/uL RBC 3.91 L (4.40-5.90) Mil/uL Hgb 12.0 (12.0-18.0) g/dL Hct 37.2 (35.0-51.0) % MCV 95.1 H (80.0-94.0) fl MCH 30.6 (27.0-31.0) pg MCHC 32.2 L (33.0-37.0) g/dL RDW 14.9 H (11.5-14.5) % Plt Count 82 L D (130-400) K/uL pCO2 (35-45) mm/Hg pO2 (80-100) mm/Hg HCO3 (21-28) mmol/L ABG pH (7.35-7.45) ABG Total CO2 (22-28) mmol/L ABG O2 Saturation (95-98) % ABG O2 Content (15-23) ML/dL ABG Base Excess (-2.0-3.0) mmol/L ABG Hemoglobin (11.7-17.4) g/dL ABG Carboxyhemoglobin (0.5-1.5) % POC ABG HHb (Measured) (0.0-5.0) % ABG Methemoglobin (0.0-3.0) % ABG O2 Capacity (16-24) mL/dL Jim Test A-a O2 Difference mm/Hg Hgb O2 Saturation (95.0-98.0) % FiO2 % Sodium 140 (132-148) mmol/l Potassium 4.3 (3.6-5.0) MMOL/L Chloride 106 (98-107) mmol/L Carbon Dioxide 31 H (22-30) mmol/L Anion Gap 7 L (10-20) BUN 17 (9-20) mg/dl Creatinine 1.0 (0.8-1.5) mg/dL Est GFR ( Amer) > 60 Est GFR (Non-Af Amer) > 60 POC Glucose (mg/dL) 107 (65-110) mg/dL Random Glucose 134 H (75-110) mg/dL Calcium 8.4 (8.4-10.2) mg/dL Magnesium 1.6 (1.6-2.3) MG/DL Total Bilirubin 1.5 H (0.2-1.3) mg/dl AST 66 H (17-59) U/L ALT 57 (21-72) U/L Alkaline Phosphatase 124 (38-126) U/L Total Protein 6.0 L (6.3-8.2) G/DL Albumin 2.4 L (3.5-5.0) g/dL Globulin 3.6 (2.2-3.9) gm/dL Albumin/Globulin Ratio 0.7 L (1.0-2.1) 09/17/16 09/17/16 09/17/16 Range/Units 22:00 21:45 16:40 WBC (4.8-10.8) K/uL RBC (4.40-5.90) Mil/uL Hgb (12.0-18.0) g/dL Hct (35.0-51.0) % MCV (80.0-94.0) fl MCH (27.0-31.0) pg MCHC (33.0-37.0) g/dL RDW (11.5-14.5) % Plt Count (130-400) K/uL pCO2 (35-45) mm/Hg pO2 (80-100) mm/Hg HCO3 (21-28) mmol/L ABG pH (7.35-7.45) ABG Total CO2 (22-28) mmol/L ABG O2 Saturation (95-98) % ABG O2 Content (15-23) ML/dL ABG Base Excess (-2.0-3.0) mmol/L ABG Hemoglobin (11.7-17.4) g/dL ABG Carboxyhemoglobin (0.5-1.5) % POC ABG HHb (Measured) (0.0-5.0) % ABG Methemoglobin (0.0-3.0) % ABG O2 Capacity (16-24) mL/dL Jim Test A-a O2 Difference mm/Hg Hgb O2 Saturation (95.0-98.0) % FiO2 % Sodium (132-148) mmol/l Potassium (3.6-5.0) MMOL/L Chloride (98-107) mmol/L Carbon Dioxide (22-30) mmol/L Anion Gap (10-20) BUN (9-20) mg/dl Creatinine (0.8-1.5) mg/dL Est GFR ( Amer) Est GFR (Non-Af Amer) POC Glucose (mg/dL) 120 H 110 118 H (65-110) mg/dL Random Glucose (75-110) mg/dL Calcium (8.4-10.2) mg/dL Magnesium (1.6-2.3) MG/DL Total Bilirubin (0.2-1.3) mg/dl AST (17-59) U/L ALT (21-72) U/L Alkaline Phosphatase (38-126) U/L Total Protein (6.3-8.2) G/DL Albumin (3.5-5.0) g/dL Globulin (2.2-3.9) gm/dL Albumin/Globulin Ratio (1.0-2.1) 09/17/16 09/17/16 Range/Units 10:52 10:30 WBC (4.8-10.8) K/uL RBC (4.40-5.90) Mil/uL Hgb (12.0-18.0) g/dL Hct (35.0-51.0) % MCV (80.0-94.0) fl MCH (27.0-31.0) pg MCHC (33.0-37.0) g/dL RDW (11.5-14.5) % Plt Count (130-400) K/uL pCO2 59 H (35-45) mm/Hg pO2 57 L (80-100) mm/Hg HCO3 26.8 (21-28) mmol/L ABG pH 7.32 L (7.35-7.45) ABG Total CO2 32.2 H (22-28) mmol/L ABG O2 Saturation 90.3 L (95-98) % ABG O2 Content 16.5 (15-23) ML/dL ABG Base Excess 2.8 (-2.0-3.0) mmol/L ABG Hemoglobin 13.5 (11.7-17.4) g/dL ABG Carboxyhemoglobin 2.3 H (0.5-1.5) % POC ABG HHb (Measured) 9.4 H (0.0-5.0) % ABG Methemoglobin 1.1 (0.0-3.0) % ABG O2 Capacity 18.3 (16-24) mL/dL Jim Test Yes A-a O2 Difference 83.0 mm/Hg Hgb O2 Saturation 87.2 L (95.0-98.0) % FiO2 30.0 % Sodium (132-148) mmol/l Potassium (3.6-5.0) MMOL/L Chloride (98-107) mmol/L Carbon Dioxide (22-30) mmol/L Anion Gap (10-20) BUN (9-20) mg/dl Creatinine (0.8-1.5) mg/dL Est GFR ( Amer) Est GFR (Non-Af Amer) POC Glucose (mg/dL) 161 H (65-110) mg/dL Random Glucose (75-110) mg/dL Calcium (8.4-10.2) mg/dL Magnesium (1.6-2.3) MG/DL Total Bilirubin (0.2-1.3) mg/dl AST (17-59) U/L ALT (21-72) U/L Alkaline Phosphatase (38-126) U/L Total Protein (6.3-8.2) G/DL Albumin (3.5-5.0) g/dL Globulin (2.2-3.9) gm/dL Albumin/Globulin Ratio (1.0-2.1) Laboratory Results - last 24 hr 09/17/16 09/17/16 09/17/16 10:30 10:52 16:40 WBC RBC Hgb Hct MCV MCH MCHC RDW Plt Count pCO2 59 H pO2 57 L HCO3 26.8 ABG pH 7.32 L ABG Total CO2 32.2 H ABG O2 Saturation 90.3 L ABG O2 Content 16.5 ABG Base Excess 2.8 ABG Hemoglobin 13.5 ABG Carboxyhemoglobin 2.3 H POC ABG HHb (Measured) 9.4 H ABG Methemoglobin 1.1 ABG O2 Capacity 18.3 Jim Test Yes A-a O2 Difference 83.0 Hgb O2 Saturation 87.2 L FiO2 30.0 Sodium Potassium Chloride Carbon Dioxide Anion Gap BUN Creatinine Est GFR ( Amer) Est GFR (Non-Af Amer) POC Glucose (mg/dL) 161 H 118 H Random Glucose Calcium Magnesium Total Bilirubin AST ALT Alkaline Phosphatase Total Protein Albumin Globulin Albumin/Globulin Ratio 09/17/16 09/17/16 09/18/16 21:45 22:00 04:38 WBC RBC Hgb Hct MCV MCH MCHC RDW Plt Count pCO2 pO2 HCO3 ABG pH ABG Total CO2 ABG O2 Saturation ABG O2 Content ABG Base Excess ABG Hemoglobin ABG Carboxyhemoglobin POC ABG HHb (Measured) ABG Methemoglobin ABG O2 Capacity Jim Test A-a O2 Difference Hgb O2 Saturation FiO2 Sodium Potassium Chloride Carbon Dioxide Anion Gap BUN Creatinine Est GFR ( Amer) Est GFR (Non-Af Amer) POC Glucose (mg/dL) 110 120 H 107 Random Glucose Calcium Magnesium Total Bilirubin AST ALT Alkaline Phosphatase Total Protein Albumin Globulin Albumin/Globulin Ratio 09/18/16 09/18/16 06:15 08:40 WBC 5.7 RBC 3.91 L Hgb 12.0 Hct 37.2 MCV 95.1 H MCH 30.6 MCHC 32.2 L RDW 14.9 H Plt Count 82 L D pCO2 pO2 HCO3 ABG pH ABG Total CO2 ABG O2 Saturation ABG O2 Content ABG Base Excess ABG Hemoglobin ABG Carboxyhemoglobin POC ABG HHb (Measured) ABG Methemoglobin ABG O2 Capacity Jim Test A-a O2 Difference Hgb O2 Saturation FiO2 Sodium 140 Potassium 4.3 Chloride 106 Carbon Dioxide 31 H Anion Gap 7 L BUN 17 Creatinine 1.0 Est GFR ( Amer) > 60 Est GFR (Non-Af Amer) > 60 POC Glucose (mg/dL) Random Glucose 134 H Calcium 8.4 Magnesium 1.6 Total Bilirubin 1.5 H AST 66 H ALT 57 Alkaline Phosphatase 124 Total Protein 6.0 L Albumin 2.4 L Globulin 3.6 Albumin/Globulin Ratio 0.7 L Fingerstick Blood Sugar Results: 107 Critical Care Progress Note - Nutrition Nutrition: Nutrition Category Date Time Status Liquid Diet [DIET] Diets 09/15/16 Dinner Active Assessment/Plan - Assessment and Plan (Free Text) Assessment: Assessment: 51 year old male with h/o HTN, DM, EtOH abuse, and EtOH cirrhosis a/w withdrawal seizure, respiratory failure on vent, intubated twice over the hospital course, hospital course complicated by Vtach/Vfib arrest with ROSC on , and ischemic cardiomyopathy,15%. 1. Alcoholic cirrhosis 2-Resp failure: now extubated, maintaing )2 sat > 95% 3. Hepatic encephalopathy: better, liver enzymes close to normal range now 4-CHF with severly reduced EF: compensated 5-NONA: cardio-renal syndrome: improved 6-Hyponatremia : better 7-A fib, now in SR Plan: - Continue lactulose bid and rifaximin Continue HFNC oxy: 35 L/m On amiodorone 200 mg po bid, and low dose carrvediolol 3.125 BDm keeping him in SR - titrate to 2 BM/day - LFTs stable Mag sulphate 1 gm CXR ordered, will review -
[2016-09-18] MEDS: Fluconazole IV 200mg/100 ml NS 100 ML IVPB SCH (09:28)
[2016-09-18] MEDS: levETIRAcetam 500 MG in Sodium Chloride 0.9% 100 ML IVPB SCH ×2 (09:29→20:02)
[2016-09-18] MEDS: Multivitamin With Minerals Tab PO SCH (09:30)
--- NOTE | 2016-09-18 10:14 | CP.PCM.PN ---
Subjective - Date & Time of Evaluation Date of Evaluation: 09/18/16 Time of Evaluation: 10:13 - Subjective Subjective: RFV: Alcoholic cirrhosis S: on high flow oxygen. alert. eating small amounts. no bm today yet. no abdo pain. no bleeding. Objective - Vital Signs/Intake and Output Vital Signs (last 24 hours): Temp Pulse Resp BP Pulse Ox 97.6 F 86 13 126/93 H 95 09/18/16 08:00 09/18/16 09:28 09/18/16 08:00 09/18/16 09:28 09/18/16 08:00 Intake and Output: 09/18/16 09/18/16 06:59 18:59 Intake Total 75 Output Total 225 Balance -150 - Medications Medications: Current Medications Acetaminophen (Tylenol 650mg/20.3ml Solution Ud) 650 mg PO Q6 PRN PRN Reason: Fever >100.4 F Last Admin: 09/15/16 01:19 Dose: 650 mg Albuterol Sulfate (Albuterol 0.083% Inhal Madelin (2.5 Mg/3 Ml) Ud) 2.5 mg INH RQID [facility] Last Admin: 09/18/16 07:36 Dose: 2.5 mg Amiodarone HCl (Cordarone) 200 mg PO BID [facility] Last Admin: 09/18/16 09:28 Dose: 200 mg Carvedilol (Coreg) 3.125 mg PO Q12 [facility] Last Admin: 09/18/16 09:28 Dose: 3.125 mg Folic Acid (Folic Acid) 1 mg PO DAILY [facility] Last Admin: 09/18/16 09:29 Dose: 1 mg Levetiracetam 500 mg/ Sodium (Chloride) 105 mls @ 210 mls/hr IVPB Q12 [facility] Last Admin: 09/18/16 09:29 Dose: 210 mls/hr Fluconazole (Diflucan Iv 200 Mg/100 Ml Ns) 100 mls @ 100 mls/hr IVPB DAILY [facility] Last Admin: 09/18/16 09:28 Dose: 100 mls/hr Ceftaroline Fosamil 200 mg/ (Sodium Chloride) 100 mls @ 100 mls/hr IVPB Q12 [facility] Last Admin: 09/18/16 09:31 Dose: 100 mls/hr Dextrose/Sodium Chloride (Dextrose 5%/0.45% Ns 1000 Ml) 1,000 mls @ 75 mls/hr IV .[id number] [facility] Stop: 09/18/16 11:16 Last Admin: 09/18/16 06:26 Dose: 75 mls/hr Insulin Human Regular (Humulin R) 0 units SC ACCU-CHECK [facility] PRN Reason: Protocol Last Admin: 09/18/16 06:10 Dose: Not Given Lactulose (Enulose) 20 gm PO DAILY [facility] Last Admin: 09/18/16 09:29 Dose: 20 gm Multivitamins/Minerals (Therapeutic-M Tab) 1 tab PO DAILY [facility] Last Admin: 09/18/16 09:30 Dose: 1 tab Pantoprazole Sodium (Protonix Inj) 40 mg IVP DAILY [facility] Last Admin: 09/18/16 09:29 Dose: 40 mg Spironolactone (Aldactone) 50 mg PO DAILY [facility] Last Admin: 09/18/16 09:28 Dose: 50 mg Thiamine HCl (Vitamin B1 Tab) 100 mg PO DAILY [facility] Last Admin: 09/18/16 09:30 Dose: 100 mg - Labs Labs: 09/18/16 06:15 09/18/16 06:15 PT 13.9 SECONDS (9.6-11.2) H 09/15/16 12:05 INR 1.34 (0.92-1.08) H 09/15/16 12:05 APTT 28.7 SECONDS (23.3-32.5) 09/15/16 12:05 - Constitutional Appears: No Acute Distress, Chronically Ill - Head Exam Head Exam: ATRAUMATIC, NORMOCEPHALIC - Eye Exam Eye Exam: Normal appearance - Respiratory Exam Respiratory Exam: NORMAL BREATHING PATTERN - Cardiovascular Exam Cardiovascular Exam: +S1, +S2 - GI/Abdominal Exam GI & Abdominal Exam: Soft, Hernia. absent: Tenderness Assessment and Plan - Assessment and Plan (Free Text) Assessment: 51 year old male with h/o HTN, DM, EtOH abuse, and EtOH cirrhosis a/w withdrawal seizure, respiratory failure on vent, intubated twice over the hospital course, hospital course complicated by Vtach/Vfib arrest with ROSC on , and ischemic cardiomyopathy,15%. 1. Alcoholic cirrhosis 2. Hepatic encephalopathy Plan: - Continue lactulose bid and rifaximin - titrate to 2 BM/day - LFTs stable - Hepatitis and autoimmune serologies negative - elective CT liver protocol once creatinine improves/acute issues resolve - elective outpatient EGD for variceal screening - Supportive care - Resp status management as per MICU team
--- NOTE | 2016-09-18 10:30 | PN ---
DATE: 09/18/2016 The patient seen and examined. Interim events noted. Consults noted and appreciated, pulmonary, nep hrology, desolderer. Cardiology followup and intervention noted and appreciated. The patient remai ns in intensive care unit. The patient is awake, responsive. The patient feels okay and wants to go home. No chest pain, no shortness of breath. PHYSICAL EXAMINATION: GENERAL: The patient is in no acute distress. VITAL SIGNS: Stable. HEART: S1, S2 normal, regular. LUNGS: Good bilateral air exchange. ABDOMEN: Soft, nontender. EXTREMITIES: No edema, no calf swelling, no tenderness, no acute ischemia. CENTRAL NERVOUS SYSTEM: Essentially unchanged. The patient is alert, awake, responsive. DIAGNOSTIC DATA: Available diagnostic data reviewed. Telemetry monitoring does not reveal significa nt arrhythmias. Renal function has returned to normal. Overall, patient's general medical condition is slowly improving. PLAN: As ordered. Kal Rogel MD cc: [id number] TT: 09/18/2016 10:29:39 Confirmation # [id number] Dictation # [id number] [email or web address]
[2016-09-18] MEDS: Albuterol-Ipratrop 3 mg / 0.5 (3 ml) UD INH SCH (11:13)
--- NOTE | 2016-09-18 11:21 | RAD ---
PROCEDURE: CHEST RADIOGRAPH, 1 VIEW HISTORY: CHF COMPARISON: Comparison chest 09/16/2016. The study is limited due to poor inspiration with low lung volumes. FINDINGS: LUNGS: Previously noted mild pulmonary vascular congestive changes slightly improved. Persistent bibasilar opacities likely representing some combination of atelectasis and or infiltrates as well as small effusions left larger than right PLEURA: No apparent pneumothorax. . CARDIOVASCULAR: Cardiomegaly. OSSEOUS STRUCTURES: No significant abnormalities. VISUALIZED UPPER ABDOMEN: Normal. OTHER FINDINGS: None. IMPRESSION: Previously noted mild pulmonary vascular congestive changes slightly improved. Persistent bibasilar opacities likely representing some combination of atelectasis and or infiltrates as well as small effusions left larger than right
[2016-09-19 05:25] LABS: HEMATOCRIT 39.4 % (35.0-51.0); MEAN CELL VOLUME 94.2 fl (80.0-94.0); MEAN CORPUSCULAR HGB CONC 32.9 g/dL (33.0-37.0); RED CELL DISTRIBUTION WIDTH 14.8 % (11.5-14.5); WHITE BLOOD COUNT 8.8 K/uL (4.8-10.8)
[2016-09-19 06:03] LABS: CHLORIDE 105 mmol/L (98-107); SODIUM 143 mmol/l (132-148)
[2016-09-19 06:05] LABS: AST/SGOT 92 U/L (17-59); BILIRUBIN,TOTAL 2.1 mg/dl (0.2-1.3); CARBON DIOXIDE 31 mmol/L (22-30); GFR AFRICAN-AMERICAN > 60
[2016-09-19 06:06] LABS: ALB/GLOB RATIO 0.6 (1.0-2.1); ALKALINE PHOSPHATASE 160 U/L (38-126); ALT/SGPT 55 U/L (21-72); BLOOD UREA NITROGEN 15 mg/dl (9-20); CALCIUM 8.3 mg/dL (8.4-10.2); GLUCOSE,RANDOM 157 mg/dL (75-110); TOTAL PROTEIN 6.8 G/DL (6.3-8.2)
[2016-09-19 06:10] LABS: POTASSIUM 4.7 MMOL/L (3.6-5.0)
[2016-09-19] MEDS: Insulin Regular 100 units/ml SC SCH ×4 (07:14→22:20)
[2016-09-19] MEDS: Albuterol 0.083% Inhal Sol (2.5 mg/3 mL) UD INH SCH ×4 (07:29→20:30)
--- NOTE | 2016-09-19 07:50 | PN ---
DATE: 09/19/2016 The patient seen and examined. Interim events noted. The patient remains in intensive care unit. S eeping, arousable. Denies any specific complaint of no chest pain or shortness of breath. PHYSICAL EXAMINATION: GENERAL: The patient is in no acute distress. VITAL SIGNS: Stable. HEART: S1, S2 normal, regular. LUNGS: Good bilateral air entry. ABDOMEN: Soft, nontender. EXTREMITIES: No edema, no calf swelling, no tenderness, no acute ischemia. CENTRAL NERVOUS SYSTEM: Essentially unchanged. DIAGNOSTIC DATA: Available diagnostic data reviewed. Overall, patient's general medical condition is stable and improving. PLAN: As ordered. ____ does not show significant ____. Kal Rogel MD cc: [id number] TT: 09/19/2016 07:49:31 Confirmation # [id number] Dictation # [id number] saji
--- NOTE | 2016-09-19 08:43 | CP.PCM.PN ---
Subjective - Date & Time of Evaluation Date of Evaluation: 09/19/16 Time of Evaluation: 08:20 - Subjective Subjective: Awake, confused Copious thick secretions were suctioned 10 min back Breathes more comfortably Has not spiked a fever >24 hrs Adequately oxygenated Sinus tach at 100 BPM BP 110/70 mm Hg Excellent urine out put BUN/Creatinine and electrolytes stable Stable from cardiac point of view Objective - Vital Signs/Intake and Output Vital Signs (last 24 hours): Temp Pulse Resp BP Pulse Ox 97.3 F L 106 H 12 136/93 H 94 L 09/19/16 04:00 09/19/16 06:00 09/19/16 08:34 09/19/16 06:00 09/19/16 06:00 Intake and Output: 09/19/16 09/19/16 06:59 18:59 Intake Total 1100 Output Total 950 Balance 150 - Medications Medications: Current Medications Acetaminophen (Tylenol 650mg/20.3ml Solution Ud) 650 mg PO Q6 PRN PRN Reason: Fever >100.4 F Last Admin: 09/15/16 01:19 Dose: 650 mg Albuterol Sulfate (Albuterol 0.083% Inhal Madelin (2.5 Mg/3 Ml) Ud) 2.5 mg INH RQID [facility] Last Admin: 09/19/16 07:29 Dose: 2.5 mg Amiodarone HCl (Cordarone) 200 mg PO BID [facility] Last Admin: 09/18/16 16:33 Dose: 200 mg Carvedilol (Coreg) 3.125 mg PO Q12 [facility] Last Admin: 09/18/16 20:02 Dose: 3.125 mg Folic Acid (Folic Acid) 1 mg PO DAILY [facility] Last Admin: 09/18/16 09:29 Dose: 1 mg Levetiracetam 500 mg/ Sodium (Chloride) 105 mls @ 210 mls/hr IVPB Q12 [facility] Last Admin: 09/18/16 20:02 Dose: 210 mls/hr Fluconazole (Diflucan Iv 200 Mg/100 Ml Ns) 100 mls @ 100 mls/hr IVPB DAILY [facility] Last Admin: 09/18/16 09:28 Dose: 100 mls/hr Ceftaroline Fosamil 200 mg/ (Sodium Chloride) 100 mls @ 100 mls/hr IVPB Q12 [facility] Last Admin: 09/18/16 20:57 Dose: 100 mls/hr Insulin Human Regular (Humulin R) 0 units SC ACCU-CHECK [facility] PRN Reason: Protocol Last Admin: 09/19/16 07:14 Dose: Not Given Lactulose (Enulose) 20 gm PO DAILY [facility] Last Admin: 09/18/16 09:29 Dose: 20 gm Multivitamins/Minerals (Therapeutic-M Tab) 1 tab PO DAILY [facility] Last Admin: 09/18/16 09:30 Dose: 1 tab Spironolactone (Aldactone) 50 mg PO DAILY [facility] Last Admin: 09/18/16 09:28 Dose: 50 mg Thiamine HCl (Vitamin B1 Tab) 100 mg PO DAILY [facility] Last Admin: 09/18/16 09:30 Dose: 100 mg - Labs Labs: 09/19/16 04:50 09/19/16 04:50 PT 13.9 SECONDS (9.6-11.2) H 09/15/16 12:05 INR 1.34 (0.92-1.08) H 09/15/16 12:05 APTT 28.7 SECONDS (23.3-32.5) 09/15/16 12:05
[2016-09-19 09:02] LABS: ABG ALLEN TEST YES; ARTERIAL BLOOD GAS HCO3 27.6 mmol/L (21-28); ARTERIAL BLOOD GAS MODE HIGH FLOW LPM; ARTERIAL BLOOD GAS PH 7.29 (7.35-7.45); ARTERIAL BLOOD GAS PO2 73 mm/Hg (80-100)
[2016-09-19] MEDS: levETIRAcetam 500 MG in Sodium Chloride 0.9% 100 ML IVPB SCH ×2 (09:33→20:47)
--- NOTE | 2016-09-19 09:41 | CP.PCM.PN ---
Subjective - Date & Time of Evaluation Date of Evaluation: 09/19/16 Time of Evaluation: 09:38 - Subjective Subjective: Interim events reviewed, discussed with nursing. Has become more somnolent once again. Arousable and tries to follow simple commands. Weak and non-productive cough despite coaching. Chest x-ray is essentially unchanged with hazy infiltrate left base/ retrocardiac density with shadowing of the left hemidiaphragm. The right hemidiaphragm and the CP angle are well seen, but this was also the case when CT chest was done last week showing bilateral effusions and basal atelectasis in both lower lobes. He awakens briefly, but quickly falls asleep. He does appear to comprehend when awake. No cyanosis, trace dependant edema in the abdominal wall. Neck is supple and trachea midline, no visible JVD. No dullness on percussion of the anterior wall, no subcutaneous emphysema. Breath sounds are present bilaterally, diminished posrteriorly, with rhonchi and few medium rales in dependant zones of both lower lobes. No audible wheezing or bronchial breathing. Repeat ABG shows increasing PaCO2 with mild respiratory acidosis. Medications reviewed to assess for anything that may be sedating or affecting the liver. If he continues to retain CO2 he will likely require re-intubation and mechanical ventilation. Would branched chain amino acids help? or IV MARCO? Objective - Vital Signs/Intake and Output Vital Signs (last 24 hours): Temp Pulse Resp BP Pulse Ox 98 F 107 H 12 150/92 H 92 L 09/19/16 08:00 09/19/16 08:00 09/19/16 08:34 09/19/16 08:00 09/19/16 08:00 Intake and Output: 09/18/16 09/19/16 23:59 11:59 Intake Total 1250 600 Output Total 830 950 Balance 420 -350 - Medications Medications: Current Medications Acetaminophen (Tylenol 650mg/20.3ml Solution Ud) 650 mg PO Q6 PRN PRN Reason: Fever >100.4 F Last Admin: 09/15/16 01:19 Dose: 650 mg Albuterol Sulfate (Albuterol 0.083% Inhal Madelin (2.5 Mg/3 Ml) Ud) 2.5 mg INH RQID [facility] Last Admin: 09/19/16 07:29 Dose: 2.5 mg Amiodarone HCl (Cordarone) 200 mg PO BID [facility] Last Admin: 09/19/16 09:33 Dose: Not Given Carvedilol (Coreg) 3.125 mg PO Q12 [facility] Last Admin: 09/19/16 09:33 Dose: Not Given Levetiracetam 500 mg/ Sodium (Chloride) 105 mls @ 210 mls/hr IVPB Q12 [facility] Last Admin: 09/19/16 09:33 Dose: 210 mls/hr Ceftaroline Fosamil 200 mg/ (Sodium Chloride) 100 mls @ 100 mls/hr IVPB Q12 [facility] Last Admin: 09/19/16 09:34 Dose: 100 mls/hr Insulin Human Regular (Humulin R) 0 units SC ACCU-CHECK [facility] PRN Reason: Protocol Last Admin: 09/19/16 07:14 Dose: Not Given Lactulose (Enulose) 20 gm PO DAILY [facility] Last Admin: 09/18/16 09:29 Dose: 20 gm Spironolactone (Aldactone) 50 mg PO DAILY [facility] Last Admin: 09/18/16 09:28 Dose: 50 mg - Labs Labs: 09/19/16 04:50 09/19/16 04:50 PT 13.9 SECONDS (9.6-11.2) H 09/15/16 12:05 INR 1.34 (0.92-1.08) H 09/15/16 12:05 APTT 28.7 SECONDS (23.3-32.5) 09/15/16 12:05 Assessment and Plan (1) Aspiration pneumonia Status: Acute (2) Acute respiratory failure with hypoxia and hypercapnia Status: Acute (3) Pleural effusion Status: Acute (4) Congestive cardiomyopathy Status: Chronic (5) Altered mental status Status: Chronic
[2016-09-19] MEDS ORDERED: Fluconazole IV 200mg/100 ml NS 100 ML IVPB SCH (09:45)
--- NOTE | 2016-09-19 09:54 | CP.CCUPN ---
<Merrill Leyva T - Last Filed: 09/19/16 09:34> CCU Subjective - Physician Review Subjective (Free Text): Pt seen and examined at bedside in the ICU. Pt is actively responsive, but not currently oriented to place. Otherwise, pt denied f/c/n/v/d/c, abd pain or distension, or other myalgias. CCU Objective - Vital Signs / Intake & Output Vital Signs (Last 4 hours): Vital Signs Temp Pulse Resp BP Pulse Ox 09/19/16 08:34 12 09/19/16 08:00 98 F 107 H 12 150/92 H 92 L 09/19/16 06:00 106 H 19 136/93 H 94 L Intake and Output (Last 8hrs): Intake & Output 09/18/16 09/19/16 09/19/16 22:59 06:59 14:59 Intake Total 950 600 Output Total 475 950 Balance 475 -350 Intake: IV 600 600 Intake, Piggyback 200 Oral 150 Output: Urine 475 950 Urethral ([place]) 475 950 Other: # Bowel Movements 1 - Physical Exam Head: Positive for: Atraumatic, Normocephalic Pupils: Positive for: PERRL. Negative for: Sluggish, Non-Reactive Extroacular Muscles: Positive for: EOMI Conjunctiva: Positive for: Normal. Negative for: Injected, Icteric Mouth: Positive for: Dry Neck: Positive for: Normal Range of Motion, Trachea Midline. Negative for: JVD , Lymphadenopathy, Bruit Respiratory/Chest: Positive for: Decreased Breath Sounds, Rhonchi (moderate rhonchi throughout). Negative for: Respiratory Distress, Wheezes Cardiovascular: Positive for: Regular Rate and Rhythm, Normal S1, S2, Peripheal Pulses Present. Negative for: Murmurs Abdomen: Positive for: Normal Bowel Sounds. Negative for: Tenderness, Distention, Peritoneal Signs, Guarding Upper Extremity: Positive for: Normal Inspection, NORMAL PULSES. Negative for: Cyanosis, Edema Lower Extremity: Positive for: Normal Inspection, NORMAL PULSES. Negative for: Edema, CALF TENDERNESS Neurological: Positive for: GCS=15, CN II-XII Intact Skin: Positive for: Warm, Dry, Normal Color. Negative for: Rashes - Medications Active Medications: Active Medications Generic Name Dose Route Start Last Admin Trade Name Freq PRN Reason Stop Dose Admin Acetaminophen 650 mg 09/10/16 02:44 09/15/16 01:19 Tylenol 650mg/20.3ml Solution Ud PO 650 mg Q6 PRN Administration Fever >100.4 F Albuterol Sulfate 2.5 mg 09/17/16 12:00 09/19/16 07:29 Albuterol 0.083% Inhal Madelin (2.5 Mg/3 Ml) Ud INH 2.5 mg RQID CORTNEY Administration Amiodarone HCl 200 mg 09/16/16 09:30 09/18/16 16:33 Cordarone PO 200 mg BID CORTNEY Administration Carvedilol 3.125 mg 09/14/16 11:30 09/18/16 20:02 Coreg PO 3.125 mg Q12 CORTNEY Administration Levetiracetam 500 mg/ Sodium 105 mls @ 210 mls/hr 09/08/16 12:45 09/18/16 20:02 Chloride IVPB 210 mls/hr Q12 CORTNEY Administration Ceftaroline Fosamil 200 mg/ 100 mls @ 100 mls/hr 09/16/16 11:15 09/18/16 20:57 Sodium Chloride IVPB 100 mls/hr Q12 CORTNEY Administration Insulin Human Regular 0 units 09/03/16 23:00 09/19/16 07:14 Humulin R SC Not Given ACCU-CHECK [facility] Protocol Lactulose 20 gm 09/13/16 11:25 09/18/16 09:29 Enulose PO 20 gm DAILY C[facility]NEY Administration Spironolactone 50 mg 09/14/16 11:15 09/18/16 09:28 Aldactone PO 50 mg DAILY CORTNEY Administration - Patient Studies Lab Studies: Lab Studies 09/19/16 09/19/16 09/19/16 Range/Units 08:55 05:05 04:50 WBC 8.8 D (4.8-10.8) K/uL RBC 4.18 L (4.40-5.90) Mil/uL Hgb 13.0 (12.0-18.0) g/dL Hct 39.4 (35.0-51.0) % MCV 94.2 H (80.0-94.0) fl MCH 31.0 (27.0-31.0) pg MCHC 32.9 L (33.0-37.0) g/dL RDW 14.8 H (11.5-14.5) % Plt Count 122 L D (130-400) K/uL pCO2 67 H (35-45) mm/Hg pO2 73 L (80-100) mm/Hg HCO3 27.6 (21-28) mmol/L ABG pH 7.29 L (7.35-7.45) ABG Total CO2 34.3 H (22-28) mmol/L ABG O2 Saturation 95.4 (95-98) % ABG Base Excess 3.6 H (-2.0-3.0) mmol/L Jmi Test Yes ABG Potassium 4.5 (3.6-5.2) mmol/L A-a O2 Difference 164.0 mm/Hg Sodium 139.0 143 (132-148) mmol/L Chloride 113.0 H 105 (98-107) mmol/L Glucose 171 H (75-110) mg/dL Lactate 0.7 (0.7-2.1) mmol/L Vent Mode High flow lpm FiO2 45.0 % Potassium 4.7 (3.6-5.0) MMOL/L Carbon Dioxide 31 H (22-30) mmol/L Anion Gap 12 (10-20) BUN 15 (9-20) mg/dl Creatinine 0.9 (0.8-1.5) mg/dL Est GFR ( Amer) > 60 Est GFR (Non-Af Amer) > 60 POC Glucose (mg/dL) 121 H (65-110) mg/dL Random Glucose 157 H (75-110) mg/dL Calcium 8.3 L (8.4-10.2) mg/dL Total Bilirubin 2.1 H (0.2-1.3) mg/dl AST 92 H D (17-59) U/L ALT 55 (21-72) U/L Alkaline Phosphatase 160 H D (38-126) U/L Total Protein 6.8 (6.3-8.2) G/DL Albumin 2.6 L (3.5-5.0) g/dL Globulin 4.2 H (2.2-3.9) gm/dL Albumin/Globulin Ratio 0.6 L (1.0-2.1) Arterial Blood Potassium 4.5 (3.6-5.2) mmol/L 09/18/16 09/18/16 09/18/16 Range/Units 21:11 15:55 10:53 WBC (4.8-10.8) K/uL RBC (4.40-5.90) Mil/uL Hgb (12.0-18.0) g/dL Hct (35.0-51.0) % MCV (80.0-94.0) fl MCH (27.0-31.0) pg MCHC (33.0-37.0) g/dL RDW (11.5-14.5) % Plt Count (130-400) K/uL pCO2 (35-45) mm/Hg pO2 (80-100) mm/Hg HCO3 (21-28) mmol/L ABG pH (7.35-7.45) ABG Total CO2 (22-28) mmol/L ABG O2 Saturation (95-98) % ABG Base Excess (-2.0-3.0) mmol/L Jim Test ABG Potassium (3.6-5.2) mmol/L A-a O2 Difference mm/Hg Sodium (132-148) mmol/L Chloride (98-107) mmol/L Glucose (75-110) mg/dL Lactate (0.7-2.1) mmol/L Vent Mode FiO2 % Potassium (3.6-5.0) MMOL/L Carbon Dioxide (22-30) mmol/L Anion Gap (10-20) BUN (9-20) mg/dl Creatinine (0.8-1.5) mg/dL Est GFR ( Amer) Est GFR (Non-Af Amer) POC Glucose (mg/dL) 127 H 112 H 139 H (65-110) mg/dL Random Glucose (75-110) mg/dL Calcium (8.4-10.2) mg/dL Total Bilirubin (0.2-1.3) mg/dl AST (17-59) U/L ALT (21-72) U/L Alkaline Phosphatase (38-126) U/L Total Protein (6.3-8.2) G/DL Albumin (3.5-5.0) g/dL Globulin (2.2-3.9) gm/dL Albumin/Globulin Ratio (1.0-2.1) Arterial Blood Potassium (3.6-5.2) mmol/L Laboratory Results - last 24 hr 09/18/16 09/18/16 09/18/16 10:53 15:55 21:11 WBC RBC Hgb Hct MCV MCH MCHC RDW Plt Count pCO2 pO2 HCO3 ABG pH ABG Total CO2 ABG O2 Saturation ABG Base Excess Jim Test ABG Potassium A-a O2 Difference Glucose Lactate Vent Mode FiO2 Sodium Potassium Chloride Carbon Dioxide Anion Gap BUN Creatinine Est GFR ( Amer) Est GFR (Non-Af Amer) POC Glucose (mg/dL) 139 H 112 H 127 H Random Glucose Calcium Total Bilirubin AST ALT Alkaline Phosphatase Total Protein Albumin Globulin Albumin/Globulin Ratio Arterial Blood Potassium 09/19/16 09/19/16 09/19/16 04:50 05:05 08:55 WBC 8.8 D RBC 4.18 L Hgb 13.0 Hct 39.4 MCV 94.2 H MCH 31.0 MCHC 32.9 L RDW 14.8 H Plt Count 122 L D pCO2 67 H pO2 73 L HCO3 27.6 ABG pH 7.29 L ABG Total CO2 34.3 H ABG O2 Saturation 95.4 ABG Base Excess 3.6 H Jim Test Yes ABG Potassium 4.5 A-a O2 Difference 164.0 Glucose 171 H Lactate 0.7 Vent Mode High flow lpm FiO2 45.0 Sodium 143 139.0 Potassium 4.7 Chloride 105 113.0 H Carbon Dioxide 31 H Anion Gap 12 BUN 15 Creatinine 0.9 Est GFR ( Amer) > 60 Est GFR (Non-Af Amer) > 60 POC Glucose (mg/dL) 121 H Random Glucose 157 H Calcium 8.3 L Total Bilirubin 2.1 H AST 92 H D ALT 55 Alkaline Phosphatase 160 H D Total Protein 6.8 Albumin 2.6 L Globulin 4.2 H Albumin/Globulin Ratio 0.6 L Arterial Blood Potassium 4.5 Fingerstick Blood Sugar Results: 121 Review of Systems - Review of Systems Review of Systems: see HPI Critical Care Progress Note - Nutrition Nutrition: Nutrition Category Date Time Status Liquid Diet [DIET] Diets 09/15/16 Dinner Active Assessment/Plan - Assessment and Plan (Free Text) Plan: 51 yo M w PMHx of HTN, Crohn's, and etoh dependency was admitted for seizures, etoh withdrawal, and is currently in the ICU for hypercapnia 1) Acute respiratory failure with hypercapnia, aspiration pneumonia -Hypercapnia has increased again w pCO@ of 67 this AM --Acetazolamide given one time in attempt to improve mentation -HFNC 35 lpm 45% -Teflaro 200mg IVPB Q12H --Fluconazole d/c'ed as per Pulm, as newer aspirates and cultures have returned negative -Albuterol 0.083% 2.5mg INH RQID -f/u Respiratory function -f/u diuresis -f/u mentation -f/u ABG 2) Congestive Cardiomyopathy -Likely etoh induced -LV Systolic Fcn severely impaired, EF of 15-20% -Severe Mitral Regurg, Moderate Tricuspid Regurg -Coreg 3.125mg Q12H -Amiodarone 200mg PO BID -f/u Vitals 3) Altered mental status -Unknown etiology; is responsive but is not oriented x3 --Acetazolamide given one time in attempt to improve mentation 4) Acute Renal Failure -Improved -GFR: >60, BUN/Cr: 15/0.9 -f/u labs -f/u I/O's 5) Hepatic encephalopathy -Rifaximin 550 mg PO BID, as per GI -Lactulose 20 gm PO Daily -f/u GI Recommendations -f/u GGT -f/u Ammonia 6) Thrombocytopenia -No signs of active bleed at this time <Diomedes Dominguez - Last Filed: 09/19/16 11:52> CCU Objective - Vital Signs / Intake & Output Vital Signs (Last 4 hours): Vital Signs Temp Pulse Resp BP Pulse Ox 09/19/16 10:00 94 H 22 140/86 94 L 09/19/16 08:34 12 09/19/16 08:00 98 F 107 H 12 150/92 H 92 L Intake and Output (Last 8hrs): Intake & Output 09/18/16 09/19/16 09/19/16 22:59 06:59 14:59 Intake Total 950 600 225 Output Total 475 950 275 Balance 475 -350 -50 Intake: IV 600 600 225 Intake, Piggyback 200 Oral 150 Output: Urine 475 950 275 Urethral ([place]) 475 950 275 Other: # Bowel Movements 1 - Medications Active Medications: Active Medications Generic Name Dose Route Start Last Admin Trade Name Freq PRN Reason Stop Dose Admin Acetaminophen 650 mg 09/10/16 02:44 09/15/16 01:19 Tylenol 650mg/20.3ml Solution Ud PO 650 mg Q6 PRN Administration Fever >100.4 F Albuterol Sulfate 2.5 mg 09/17/16 12:00 09/19/16 11:20 Albuterol 0.083% Inhal Madelin (2.5 Mg/3 Ml) Ud INH 2.5 mg RQID CORTNEY Administration Amiodarone HCl 200 mg 09/16/16 09:30 09/19/16 09:33 Cordarone PO Not Given BID CORTNEY Carvedilol 3.125 mg 09/14/16 11:30 09/19/16 09:33 Coreg PO Not Given Q12 CORTNEY Levetiracetam 500 mg/ Sodium 105 mls @ 210 mls/hr 09/08/16 12:45 09/19/16 09:33 Chloride IVPB 210 mls/hr Q12 CORTNEY Administration Ceftaroline Fosamil 200 mg/ 100 mls @ 100 mls/hr 09/16/16 11:15 09/19/16 09:34 Sodium Chloride IVPB 100 mls/hr Q12 CORTNEY Administration Dextrose/Sodium Chloride 500 mls @ 75 mls/hr 09/19/16 10:45 09/19/16 11:02 Dextrose 5%-0.45% Ns 500 Ml IV 09/20/16 10:46 75 mls/hr .[id number] CORTNEY Administration Insulin Human Regular 0 units 09/03/16 23:00 09/19/16 11:28 Humulin R SC Not Given ACCU-CHECK [facility] Protocol Lactulose 20 gm 09/13/16 11:25 09/18/16 09:29 Enulose PO 20 gm DAILY CORTNEY Administration Pantoprazole Sodium 40 mg 09/19/16 10:45 09/19/16 11:03 Protonix Inj IVP 40 mg DAILY CORTNEY Administration Spironolactone 50 mg 09/14/16 11:15 09/18/16 09:28 Aldactone PO 50 mg DAILY CORTNEY Administration - Patient Studies Lab Studies: Lab Studies 09/19/16 09/19/16 09/19/16 Range/Units 11:24 10:30 08:55 WBC (4.8-10.8) K/uL RBC (4.40-5.90) Mil/uL Hgb (12.0-18.0) g/dL Hct (35.0-51.0) % MCV (80.0-94.0) fl MCH (27.0-31.0) pg MCHC (33.0-37.0) g/dL RDW (11.5-14.5) % Plt Count (130-400) K/uL pCO2 67 H (35-45) mm/Hg pO2 73 L (80-100) mm/Hg HCO3 27.6 (21-28) mmol/L ABG pH 7.29 L (7.35-7.45) ABG Total CO2 34.3 H (22-28) mmol/L ABG O2 Saturation 95.4 (95-98) % ABG Base Excess 3.6 H (-2.0-3.0) mmol/L Jim Test Yes ABG Potassium 4.5 (3.6-5.2) mmol/L A-a O2 Difference 164.0 mm/Hg Sodium 139.0 (132-148) mmol/L Chloride 113.0 H (98-107) mmol/L Glucose 171 H (75-110) mg/dL Lactate 0.7 (0.7-2.1) mmol/L Vent Mode High flow lpm FiO2 45.0 % Potassium (3.6-5.0) MMOL/L Carbon Dioxide (22-30) mmol/L Anion Gap (10-20) BUN (9-20) mg/dl Creatinine (0.8-1.5) mg/dL Est GFR ( Amer) Est GFR (Non-Af Amer) POC Glucose (mg/dL) 135 H (65-110) mg/dL Random Glucose (75-110) mg/dL Calcium (8.4-10.2) mg/dL Total Bilirubin (0.2-1.3) mg/dl AST (17-59) U/L ALT (21-72) U/L Alkaline Phosphatase (38-126) U/L Ammonia 35 D (16-60) umo/L Total Protein (6.3-8.2) G/DL Albumin (3.5-5.0) g/dL Globulin (2.2-3.9) gm/dL Albumin/Globulin Ratio (1.0-2.1) Arterial Blood Potassium 4.5 (3.6-5.2) mmol/L 09/19/16 09/19/16 09/18/16 Range/Units 05:05 04:50 21:11 WBC 8.8 D (4.8-10.8) K/uL RBC 4.18 L (4.40-5.90) Mil/uL Hgb 13.0 (12.0-18.0) g/dL Hct 39.4 (35.0-51.0) % MCV 94.2 H (80.0-94.0) fl MCH 31.0 (27.0-31.0) pg MCHC 32.9 L (33.0-37.0) g/dL RDW 14.8 H (11.5-14.5) % Plt Count 122 L D (130-400) K/uL pCO2 (35-45) mm/Hg pO2 (80-100) mm/Hg HCO3 (21-28) mmol/L ABG pH (7.35-7.45) ABG Total CO2 (22-28) mmol/L ABG O2 Saturation (95-98) % ABG Base Excess (-2.0-3.0) mmol/L Jmi Test ABG Potassium (3.6-5.2) mmol/L A-a O2 Difference mm/Hg Sodium 143 (132-148) mmol/L Chloride 105 (98-107) mmol/L Glucose (75-110) mg/dL Lactate (0.7-2.1) mmol/L Vent Mode FiO2 % Potassium 4.7 (3.6-5.0) MMOL/L Carbon Dioxide 31 H (22-30) mmol/L Anion Gap 12 (10-20) BUN 15 (9-20) mg/dl Creatinine 0.9 (0.8-1.5) mg/dL Est GFR ( Amer) > 60 Est GFR (Non-Af Amer) > 60 POC Glucose (mg/dL) 121 H 127 H (65-110) mg/dL Random Glucose 157 H (75-110) mg/dL Calcium 8.3 L (8.4-10.2) mg/dL Total Bilirubin 2.1 H (0.2-1.3) mg/dl AST 92 H D (17-59) U/L ALT 55 (21-72) U/L Alkaline Phosphatase 160 H D (38-126) U/L Ammonia (16-60) umo/L Total Protein 6.8 (6.3-8.2) G/DL Albumin 2.6 L (3.5-5.0) g/dL Globulin 4.2 H (2.2-3.9) gm/dL Albumin/Globulin Ratio 0.6 L (1.0-2.1) Arterial Blood Potassium (3.6-5.2) mmol/L 09/18/16 Range/Units 15:55 WBC (4.8-10.8) K/uL RBC (4.40-5.90) Mil/uL Hgb (12.0-18.0) g/dL Hct (35.0-51.0) % MCV (80.0-94.0) fl MCH (27.0-31.0) pg MCHC (33.0-37.0) g/dL RDW (11.5-14.5) % Plt Count (130-400) K/uL pCO2 (35-45) mm/Hg pO2 (80-100) mm/Hg HCO3 (21-28) mmol/L ABG pH (7.35-7.45) ABG Total CO2 (22-28) mmol/L ABG O2 Saturation (95-98) % ABG Base Excess (-2.0-3.0) mmol/L Jim Test ABG Potassium (3.6-5.2) mmol/L A-a O2 Difference mm/Hg Sodium (132-148) mmol/L Chloride (98-107) mmol/L Glucose (75-110) mg/dL Lactate (0.7-2.1) mmol/L Vent Mode FiO2 % Potassium (3.6-5.0) MMOL/L Carbon Dioxide (22-30) mmol/L Anion Gap (10-20) BUN (9-20) mg/dl Creatinine (0.8-1.5) mg/dL Est GFR ( Amer) Est GFR (Non-Af Amer) POC Glucose (mg/dL) 112 H (65-110) mg/dL Random Glucose (75-110) mg/dL Calcium (8.4-10.2) mg/dL Total Bilirubin (0.2-1.3) mg/dl AST (17-59) U/L ALT (21-72) U/L Alkaline Phosphatase (38-126) U/L Ammonia (16-60) umo/L Total Protein (6.3-8.2) G/DL Albumin (3.5-5.0) g/dL Globulin (2.2-3.9) gm/dL Albumin/Globulin Ratio (1.0-2.1) Arterial Blood Potassium (3.6-5.2) mmol/L Laboratory Results - last 24 hr 09/18/16 09/18/16 09/19/16 15:55 21:11 04:50 WBC 8.8 D RBC 4.18 L Hgb 13.0 Hct 39.4 MCV 94.2 H MCH 31.0 MCHC 32.9 L RDW 14.8 H Plt Count 122 L D pCO2 pO2 HCO3 ABG pH ABG Total CO2 ABG O2 Saturation ABG Base Excess Jim Test ABG Potassium A-a O2 Difference Glucose Lactate Vent Mode FiO2 Sodium 143 Potassium 4.7 Chloride 105 Carbon Dioxide 31 H Anion Gap 12 BUN 15 Creatinine 0.9 Est GFR ( Amer) > 60 Est GFR (Non-Af Amer) > 60 POC Glucose (mg/dL) 112 H 127 H Random Glucose 157 H Calcium 8.3 L Total Bilirubin 2.1 H AST 92 H D ALT 55 Alkaline Phosphatase 160 H D Ammonia Total Protein 6.8 Albumin 2.6 L Globulin 4.2 H Albumin/Globulin Ratio 0.6 L Arterial Blood Potassium 09/19/16 09/19/16 09/19/16 05:05 08:55 10:30 WBC RBC Hgb Hct MCV MCH MCHC RDW Plt Count pCO2 67 H pO2 73 L HCO3 27.6 ABG pH 7.29 L ABG Total CO2 34.3 H ABG O2 Saturation 95.4 ABG Base Excess 3.6 H Jim Test Yes ABG Potassium 4.5 A-a O2 Difference 164.0 Glucose 171 H Lactate 0.7 Vent Mode High flow lpm FiO2 45.0 Sodium 139.0 Potassium Chloride 113.0 H Carbon Dioxide Anion Gap BUN Creatinine Est GFR ( Amer) Est GFR (Non-Af Amer) POC Glucose (mg/dL) 121 H Random Glucose Calcium Total Bilirubin AST ALT Alkaline Phosphatase Ammonia 35 D Total Protein Albumin Globulin Albumin/Globulin Ratio Arterial Blood Potassium 4.5 09/19/16 11:24 WBC RBC Hgb Hct MCV MCH MCHC RDW Plt Count pCO2 pO2 HCO3 ABG pH ABG Total CO2 ABG O2 Saturation ABG Base Excess Jim Test ABG Potassium A-a O2 Difference Glucose Lactate Vent Mode FiO2 Sodium Potassium Chloride Carbon Dioxide Anion Gap BUN Creatinine Est GFR ( Amer) Est GFR (Non-Af Amer) POC Glucose (mg/dL) 135 H Random Glucose Calcium Total Bilirubin AST ALT Alkaline Phosphatase Ammonia Total Protein Albumin Globulin Albumin/Globulin Ratio Arterial Blood Potassium Critical Care Progress Note - Nutrition Nutrition: Nutrition Category Date Time Status Liquid Diet [DIET] Diets 09/15/16 Dinner Active Assessment/Plan (1) Acute respiratory failure with hypercapnia Current Visit: Yes Status: Acute Comment: IV antibiotics with IV Vanco and Zosyn Aggressive Pulmonary toilets, duonebs q4h. Wean off Fio2 Daily SAT/SBT GI/DVT prophylaxis (2) Altered mental status Current Visit: Yes Status: Chronic Priority: High Comment: Multifacrorial, Toxic/Metabolic encephalopathy frequent neuro-check, Seizure precautions. Head CT scan and MRI on admission negative (3) Hepatic encephalopathy Current Visit: Yes Status: Acute Comment: Lactulose 20 gm PO BID Rifaximin 550 mg PO BID (4) Alcohol withdrawal seizure Current Visit: Yes Status: Acute Comment: Seizure free since admission (5) Aspiration pneumonia Current Visit: Yes Status: Acute Priority: High Comment: Vancomycin 750 mg IVPB Q12 CORTNEY Piperacillin Sod/Tazobactam 2.25 gm IVPB Q8 CORTNEY (6) Thrombocytopenia Current Visit: Yes Status: Acute Comment: No signs of active bleed at this time (7) Congestive cardiomyopathy Current Visit: Yes Status: Chronic Priority: High Attending/Attestation - Attestation I have personally seen and examined this patient.: Yes I have fully participated in the care of the patient.: Yes I have reviewed all pertinent clinical information: Yes Notes (Text): 09/19/16 11:45 Today: Monday, September 19, 2016 The Patient was seen and examined at the bedside, Medical records reviewed, all clinical/lab/hemodynamic/radiographic data were reviewed and management issues were discussed and formulated, Events reviewed Pain issues, skin care, head of the bed elevation, GI/DVT prophylaxis, glycemic control were addressed. Agree with above treatment plans as transcribed in Dr. Leyva note 51 Y/O M with PNHx of HTN, DM, cardiomyopathy, Crohn's disease and EtOH Dependency with Alcoholic Liver Disease Who initially presented to the ED on 08/30 with new onset seizure in the sitting of Etoh withdrawal and Delirium Tremans. Patient had Head CT scan and MRI on admission (negative for acute bleed/stroke) Hospital course noted for electrolytes imbalance, Thrombocytopenia and Acute kidney injury (renal function better), acute respiratory failure with hypercabnia, reintubated couple of time, now he is extubated as of 09/15 on HFNC, However he is more somnolent today, the ABG showed acute respiratory acidosis with CO2 of 59--->67 Afebrile overnight, HR controlled, Seizure free Aggressive Pulmonary toilets, duonebs Q 6H will repeate ABG, possible need for Reintubation Total critical care time 55 minutes
[2016-09-19 13:06] LABS: ABG ALLEN TEST YES; ARTERIAL BLOOD FLOW 35; ARTERIAL BLOOD GAS MODE HIGH FLOW LPM; ARTERIAL BLOOD GAS O2 CAPACITY 18.1 mL/dL (16-24); ARTERIAL BLOOD GAS O2 CONTENT 17.4 ML/dL (15-23); ARTERIAL BLOOD GAS PH 7.32 (7.35-7.45); ARTERIAL BLOOD GAS PO2 77 mm/Hg (80-100); ARTERIAL BLOOD HGB O2 SAT 92.9 % (95.0-98.0); CARBOXYHEMOGLOBIN 2.1 % (0.5-1.5); HHB 3.7 % (0.0-5.0); METHEMOGLOBIN 1.3 % (0.0-3.0)
--- NOTE | 2016-09-19 15:47 | CP.PCM.PN ---
<SladeTiana - Last Filed: 09/19/16 15:45> Subjective - Date & Time of Evaluation Date of Evaluation: 09/19/16 Time of Evaluation: 15:45 - Subjective Subjective: Gastroenterology Fellow/PGY4 Progress Note Patient drowsy this morning per nursing with worsening hypercarbia improved with Diamox administration. Oriented to person, place, and time with slow verbal response. Bowel movement yesterday. A 12-point review of systems is negative except for as above. Objective - Vital Signs/Intake and Output Vital Signs (last 24 hours): Temp Pulse Resp BP Pulse Ox 98 F 95 H 22 132/79 93 L 09/19/16 12:00 09/19/16 14:00 09/19/16 14:30 09/19/16 14:00 09/19/16 14:00 Intake and Output: 09/19/16 09/19/16 06:59 18:59 Intake Total 1100 775 Output Total 950 925 Balance 150 -150 - Medications Medications: Current Medications Acetaminophen (Tylenol 650mg/20.3ml Solution Ud) 650 mg PO Q6 PRN PRN Reason: Fever >100.4 F Last Admin: 09/15/16 01:19 Dose: 650 mg Albuterol Sulfate (Albuterol 0.083% Inhal Madelin (2.5 Mg/3 Ml) Ud) 2.5 mg INH RQID [facility] Last Admin: 09/19/16 11:20 Dose: 2.5 mg Amiodarone HCl (Cordarone) 200 mg PO BID [facility] Last Admin: 09/19/16 09:33 Dose: Not Given Carvedilol (Coreg) 3.125 mg PO Q12 [facility] Last Admin: 09/19/16 09:33 Dose: Not Given Levetiracetam 500 mg/ Sodium (Chloride) 105 mls @ 210 mls/hr IVPB Q12 [facility] Last Admin: 09/19/16 09:33 Dose: 210 mls/hr Ceftaroline Fosamil 200 mg/ (Sodium Chloride) 100 mls @ 100 mls/hr IVPB Q12 [facility] Last Admin: 09/19/16 09:34 Dose: 100 mls/hr Dextrose/Sodium Chloride (Dextrose 5%-0.45% Ns 500 Ml) 500 mls @ 75 mls/hr IV .Q6H40M [facility] Stop: 09/20/16 10:46 Last Admin: 09/19/16 11:02 Dose: 75 mls/hr Insulin Human Regular (Humulin R) 0 units SC ACCU-CHECK [facility] PRN Reason: Protocol Last Admin: 09/19/16 11:28 Dose: Not Given Lactulose (Enulose) 20 gm PO DAILY [facility] Last Admin: 09/18/16 09:29 Dose: 20 gm Pantoprazole Sodium (Protonix Inj) 40 mg IVP DAILY [facility] Last Admin: 09/19/16 11:03 Dose: 40 mg Spironolactone (Aldactone) 50 mg PO DAILY [facility] Last Admin: 09/18/16 09:28 Dose: 50 mg - Labs Labs: 09/19/16 04:50 09/19/16 04:50 PT 13.9 SECONDS (9.6-11.2) H 09/15/16 12:05 INR 1.34 (0.92-1.08) H 09/15/16 12:05 APTT 28.7 SECONDS (23.3-32.5) 09/15/16 12:05 - Constitutional Appears: Non-toxic, No Acute Distress - Head Exam Head Exam: ATRAUMATIC, NORMOCEPHALIC - Eye Exam Eye Exam: EOMI, PERRL Pupil Exam: PERRL. absent: Miosis, Mydriatic - ENT Exam ENT Exam: Mucous Membranes Moist, Normal Oropharynx - Neck Exam Neck Exam: Full ROM, Normal Inspection - Respiratory Exam Respiratory Exam: Clear to Ausculation Bilateral. absent: Rales, Rhonchi, Wheezes - Cardiovascular Exam Cardiovascular Exam: RRR, +S1, +S2. absent: Gallop, Rubs - GI/Abdominal Exam GI & Abdominal Exam: Soft, Normal Bowel Sounds. absent: Distended, Firm, Guarding, Rigid, Tenderness, Organomegaly, Rebound - Extremities Exam Extremities Exam: Normal Inspection, Pedal Edema - Neurological Exam Neurological Exam: Alert, Awake, Oriented x3 - Psychiatric Exam Psychiatric exam: Normal Affect, Normal Mood - Skin Skin Exam: Dry, Intact, Normal Color, Warm Assessment and Plan - Assessment and Plan (Free Text) Assessment: 51 year old male with history of Hypertension, Diabetes, Alcohol Abuse, and Alcoholic cirrhosis presenting with seizure secondary to alcohol withdrawal. Status post wo intubations 09/11 for ventilator dependent hypercarbic/hypoxic respiratory failure for airway protection in setting of alcohol withdrawal complicated by seizure, Vtach/Vfib arrest with ROSC on 09/08/16, ischemic cardiomyopathy, EF15%.No prior EGD or colonoscopy. Respiratory insufficiency 2/2 Aspiration pneumonia Alcoholic cirrhosis Hyperbilirubinemia Elevated AST/ALP Plan: >continue Lactulose daily, titrate to 2-3 BMs per day >re-ordered Rifaxamin 550mg BID >daily LFTs, PT/INR >strict I&Os >ID managing- Diflucan, Ceftaroline >low salt diet >will benefit from elective CT liver protocol once medically stable >outpatient EGD for variceal screening <Linda Silva MD - Last Filed: 09/19/16 19:24> Objective - Vital Signs/Intake and Output Vital Signs (last 24 hours): Temp Pulse Resp BP Pulse Ox 98.5 F 96 H 25 H 139/97 H 93 L 09/19/16 16:00 09/19/16 18:00 09/19/16 18:00 09/19/16 18:00 09/19/16 18:00 Intake and Output: 09/19/16 09/20/16 18:59 06:59 Intake Total 1075 Output Total 1550 Balance -475 - Medications Medications: Current Medications Acetaminophen (Tylenol 650mg/20.3ml Solution Ud) 650 mg PO Q6 PRN PRN Reason: Fever >100.4 F Last Admin: 09/15/16 01:19 Dose: 650 mg Albuterol Sulfate (Albuterol 0.083% Inhal Madelin (2.5 Mg/3 Ml) Ud) 2.5 mg INH RQID [facility] Last Admin: 09/19/16 11:20 Dose: 2.5 mg Amiodarone HCl (Cordarone) 200 mg PO BID [facility] Last Admin: 09/19/16 17:01 Dose: Not Given Carvedilol (Coreg) 3.125 mg PO Q12 [facility] Last Admin: 09/19/16 09:33 Dose: Not Given Levetiracetam 500 mg/ Sodium (Chloride) 105 mls @ 210 mls/hr IVPB Q12 [facility] Last Admin: 09/19/16 09:33 Dose: 210 mls/hr Ceftaroline Fosamil 200 mg/ (Sodium Chloride) 100 mls @ 100 mls/hr IVPB Q12 [facility] Last Admin: 09/19/16 09:34 Dose: 100 mls/hr Dextrose/Sodium Chloride (Dextrose 5%-0.45% Ns 500 Ml) 500 mls @ 75 mls/hr IV .Q6H40M [facility] Stop: 09/20/16 10:46 Last Admin: 09/19/16 11:02 Dose: 75 mls/hr Insulin Human Regular (Humulin R) 0 units SC ACCU-CHECK [facility] PRN Reason: Protocol Last Admin: 09/19/16 17:01 Dose: Not Given Lactulose (Enulose) 20 gm PO DAILY [facility] Last Admin: 09/19/16 17:01 Dose: Not Given Pantoprazole Sodium (Protonix Inj) 40 mg IVP DAILY [facility] Last Admin: 09/19/16 11:03 Dose: 40 mg Rifaximin (Xifaxan) 550 mg PO BID [facility] Last Admin: 09/19/16 17:02 Dose: Not Given Spironolactone (Aldactone) 50 mg PO DAILY [facility] Last Admin: 09/19/16 17:01 Dose: Not Given - Labs Labs: 09/19/16 04:50 09/19/16 04:50 PT 13.9 SECONDS (9.6-11.2) H 09/15/16 12:05 INR 1.34 (0.92-1.08) H 09/15/16 12:05 APTT 28.7 SECONDS (23.3-32.5) 09/15/16 12:05 Attending/Attestation - Attestation I have personally seen and examined this patient.: Yes I have fully participated in the care of the patient.: Yes I have reviewed all pertinent clinical information, including history, physical exam and plan: Yes Notes (Text): 09/19/16 19:21 Patient seen and examined at bedside with GI fellow on rounds. 51 year old male with h/o HTN, DM, EtOH abuse, and EtOH cirrhosis a/w withdrawal seizure, respiratory failure on vent, intubated twice over the hospital course, hospital course complicated by Vtach/Vfib arrest with ROSC on 09/08/16, and ischemic cardiomyopathy,15%. Currently mental status mostly due to hypercarbic and metabolic status. Continue lactulose for HE and rifaximin and titrate to 2 BM/ day. No active GI issues. Will sign off now. Will need CT triple phase scan to rule out HCC and EGd for variceal screening once stable. Will sign off now. Please call prn
[2016-09-19] MEDS: Multivitamin With Minerals Tab PO SCH (17:02)
--- NOTE | 2016-09-19 20:13 | CP.PCM.PN ---
Subjective - Date & Time of Evaluation Date of Evaluation: 09/19/16 Time of Evaluation: 15:00 - Subjective Subjective: SEEN ON RENAL F/U IN ICU CASE D/W [facility] RENAL FUNCTION BACK TO [facility] LYTES R [place] VERY POOR APPETITE REPORTED .. WILL MAINTAIN IVF D5 1/2 NS AT 75 CC/H C/O CURRENT CARE Objective - Vital Signs/Intake and Output Vital Signs (last 24 hours): Temp Pulse Resp BP Pulse Ox 98.5 F 96 H 25 H 139/97 H 93 L 09/19/16 16:00 09/19/16 18:00 09/19/16 18:00 09/19/16 18:00 09/19/16 18:00 Intake and Output: 09/19/16 09/20/16 18:59 06:59 Intake Total 1075 Output Total 1550 Balance -475 - Medications Medications: Current Medications Acetaminophen (Tylenol 650mg/20.3ml Solution Ud) 650 mg PO Q6 PRN PRN Reason: Fever >100.4 F Last Admin: 09/15/16 01:19 Dose: 650 mg Albuterol Sulfate (Albuterol 0.083% Inhal Madelin (2.5 Mg/3 Ml) Ud) 2.5 mg INH RQID [facility] Last Admin: 09/19/16 11:20 Dose: 2.5 mg Amiodarone HCl (Cordarone) 200 mg PO BID [facility] Last Admin: 09/19/16 17:01 Dose: Not Given Carvedilol (Coreg) 3.125 mg PO Q12 [facility] Last Admin: 09/19/16 09:33 Dose: Not Given Levetiracetam 500 mg/ Sodium (Chloride) 105 mls @ 210 mls/hr IVPB Q12 [facility] Last Admin: 09/19/16 09:33 Dose: 210 mls/hr Ceftaroline Fosamil 200 mg/ (Sodium Chloride) 100 mls @ 100 mls/hr IVPB Q12 [facility] Last Admin: 09/19/16 09:34 Dose: 100 mls/hr Dextrose/Sodium Chloride (Dextrose 5%-0.45% Ns 500 Ml) 500 mls @ 75 mls/hr IV .Q6H40M [facility] Stop: 09/20/16 10:46 Last Admin: 09/19/16 11:02 Dose: 75 mls/hr Insulin Human Regular (Humulin R) 0 units SC ACCU-CHECK [facility] PRN Reason: Protocol Last Admin: 09/19/16 17:01 Dose: Not Given Lactulose (Enulose) 20 gm PO DAILY [facility] Last Admin: 09/19/16 17:01 Dose: Not Given Pantoprazole Sodium (Protonix Inj) 40 mg IVP DAILY [facility] Last Admin: 09/19/16 11:03 Dose: 40 mg Rifaximin (Xifaxan) 550 mg PO BID [facility] Last Admin: 09/19/16 17:02 Dose: Not Given Spironolactone (Aldactone) 50 mg PO DAILY [facility] Last Admin: 09/19/16 17:01 Dose: Not Given - Labs Labs: 09/19/16 04:50 09/19/16 04:50 PT 13.9 SECONDS (9.6-11.2) H 09/15/16 12:05 INR 1.34 (0.92-1.08) H 09/15/16 12:05 APTT 28.7 SECONDS (23.3-32.5) 09/15/16 12:05 Assessment and Plan - Assessment and Plan (Free Text) Assessment: C/O CURRENT CARE
[2016-09-19] MEDS: Albuterol-Ipratrop 3 mg / 0.5 (3 ml) UD INH SCH (22:47)
[2016-09-20 05:34] LABS: ABG ALLEN TEST YES; ARTERIAL BLOOD FLOW 35; ARTERIAL BLOOD GAS HCO3 25.2 mmol/L (21-28); ARTERIAL BLOOD GAS O2 CAPACITY 18.3 mL/dL (16-24); ARTERIAL BLOOD GAS O2 CONTENT 17.7 ML/dL (15-23); ARTERIAL BLOOD GAS PH 7.26 (7.35-7.45); ARTERIAL BLOOD GAS PO2 77 mm/Hg (80-100); ARTERIAL BLOOD HGB O2 SAT 93.6 % (95.0-98.0); CARBOXYHEMOGLOBIN 2.1 % (0.5-1.5); HHB 3.4 % (0.0-5.0)
[2016-09-20 06:34] LABS: HEMATOCRIT 40.6 % (35.0-51.0); MEAN CELL VOLUME 94.9 fl (80.0-94.0); MEAN CORPUSCULAR HEMOGLOBIN 30.4 pg (27.0-31.0); MEAN CORPUSCULAR HGB CONC 32.1 g/dL (33.0-37.0); RED CELL DISTRIBUTION WIDTH 14.9 % (11.5-14.5); WHITE BLOOD COUNT 7.6 K/uL (4.8-10.8)
[2016-09-20 07:16] LABS: ALB/GLOB RATIO 0.7 (1.0-2.1); ALKALINE PHOSPHATASE 183 U/L (38-126); ALT/SGPT 57 U/L (21-72); AST/SGOT 74 U/L (17-59); BILIRUBIN,TOTAL 1.8 mg/dl (0.2-1.3); BLOOD UREA NITROGEN 15 mg/dl (9-20); CALCIUM 8.7 mg/dL (8.4-10.2); CARBON DIOXIDE 26 mmol/L (22-30); CHLORIDE 106 mmol/L (98-107); GFR AFRICAN-AMERICAN > 60; GLUCOSE,RANDOM 168 mg/dL (75-110); POTASSIUM 4.6 MMOL/L (3.6-5.0); SODIUM 140 mmol/l (132-148); TOTAL PROTEIN 6.8 G/DL (6.3-8.2)
--- NOTE | 2016-09-20 07:26 | CP.CCUPN ---
<Merrill Leyva T - Last Filed: 09/20/16 10:16> CCU Subjective - Physician Review Subjective (Free Text): Pt seen and examined at bedside in the ICU. Pt was unresponsive at examination this morning, a noticeable decrease in mentation from previous days. His SpO2 had dropped to 80s w pCO2 at 65 this AM, resulting him in being reintubated. Pt was unable to answer questions thus full ROS panel was unable to be obtained. CCU Objective - Vital Signs / Intake & Output Vital Signs (Last 4 hours): Vital Signs Temp Pulse Resp BP Pulse Ox 09/20/16 06:00 102 H 24 146/97 H 94 L 09/20/16 04:00 99 F 115 H 25 H 146/91 H 93 L 09/20/16 03:29 32 H Intake and Output (Last 8hrs): Intake & Output 09/19/16 09/20/16 09/20/16 22:59 06:59 14:59 Intake Total 762 450 Output Total 1125 800 Balance -363 -350 Intake: IV 562 450 Intake, Piggyback 200 Output: Urine 1125 800 Urethral ([place]) 1125 800 - Physical Exam Physical Exam Limitations: Positive for: Altered Mental Status Head: Positive for: Atraumatic, Normocephalic Pupils: Positive for: PERRL. Negative for: Sluggish, Non-Reactive Extroacular Muscles: Positive for: EOMI Conjunctiva: Positive for: Normal. Negative for: Injected, Icteric Mouth: Positive for: Dry Nose (External): Positive for: Atraumatic. Negative for: Abrasion Nose (Internal): Positive for: Normal Inspection Neck: Positive for: Trachea Midline. Negative for: JVD, Lymphadenopathy, Bruit Respiratory/Chest: Positive for: Decreased Breath Sounds, Rhonchi (minimally rhonchi throughout). Negative for: Respiratory Distress, Wheezes Cardiovascular: Positive for: Regular Rate and Rhythm, Normal S1, S2, Peripheal Pulses Present. Negative for: Murmurs Abdomen: Positive for: Normal Bowel Sounds. Negative for: Tenderness, Distention, Peritoneal Signs, Guarding Upper Extremity: Positive for: Normal Inspection, NORMAL PULSES. Negative for: Cyanosis, Edema Lower Extremity: Positive for: Normal Inspection, NORMAL PULSES. Negative for: Edema, CALF TENDERNESS Neurological: Positive for: Other (unresponsive to voice, withraws extremities x4 to pain) Skin: Positive for: Warm, Dry, Normal Color. Negative for: Rashes Psychiatric: Positive for: Other (unresponsive) - Medications Active Medications: Active Medications Generic Name Dose Route Start Last Admin Trade Name Freq PRN Reason Stop Dose Admin Acetaminophen 650 mg 09/10/16 02:44 09/15/16 01:19 Tylenol 650mg/20.3ml Solution Ud PO 650 mg Q6 PRN Administration Fever >100.4 F Albuterol Sulfate 2.5 mg 09/17/16 12:00 09/19/16 20:30 Albuterol 0.083% Inhal Madelin (2.5 Mg/3 Ml) Ud INH 2.5 mg RQID C[facility]NEY Administration Amiodarone HCl 200 mg 09/16/16 09:30 09/19/16 17:01 Cordarone PO Not Given BID C[facility]NEY Carvedilol 3.125 mg 09/14/16 11:30 09/19/16 20:44 Coreg PO 3.125 mg Q12 [facility]NEY Administration Levetiracetam 500 mg/ Sodium 105 mls @ 210 mls/hr 09/08/16 12:45 09/19/16 20:47 Chloride IVPB 210 mls/hr Q12 [facility] Administration Ceftaroline Fosamil 200 mg/ 100 mls @ 100 mls/hr 09/16/16 11:15 09/19/16 21:17 Sodium Chloride IVPB 100 mls/hr Q12 [facility] Administration Dextrose/Sodium Chloride 500 mls @ 75 mls/hr 09/19/16 10:45 09/20/16 01:00 Dextrose 5%-0.45% Ns 500 Ml IV 09/20/16 10:46 75 mls/hr .[id number] C[facility]NEY Administration Insulin Human Regular 0 units 09/03/16 23:00 09/19/16 22:20 Humulin R SC Not Given ACCU-CHECK [facility] Protocol Lactulose 20 gm 09/13/16 11:25 09/19/16 17:01 Enulose PO Not Given DAILY [facility] Pantoprazole Sodium 40 mg 09/19/16 10:45 09/19/16 11:03 Protonix Inj IVP 40 mg DAILY [facility] Administration Rifaximin 550 mg 09/19/16 17:00 09/19/16 17:02 Xifaxan PO Not Given BID C[facility]NEY Spironolactone 50 mg 09/14/16 11:15 09/19/16 17:01 Aldactone PO Not Given DAILY CORTNEY - Patient Studies Lab Studies: Lab Studies 09/20/16 09/20/16 09/19/16 Range/Units 05:13 05:05 21:47 WBC 7.6 (4.8-10.8) K/uL RBC 4.28 L (4.40-5.90) Mil/uL Hgb 13.0 (12.0-18.0) g/dL Hct 40.6 (35.0-51.0) % MCV 94.9 H (80.0-94.0) fl MCH 30.4 (27.0-31.0) pg MCHC 32.1 L (33.0-37.0) g/dL RDW 14.9 H (11.5-14.5) % Plt Count 111 L (130-400) K/uL pCO2 (35-45) mm/Hg pO2 (80-100) mm/Hg HCO3 (21-28) mmol/L ABG pH (7.35-7.45) ABG Total CO2 (22-28) mmol/L ABG O2 Saturation (95-98) % ABG O2 Content (15-23) ML/dL ABG Base Excess (-2.0-3.0) mmol/L ABG Hemoglobin (11.7-17.4) g/dL ABG Carboxyhemoglobin (0.5-1.5) % POC ABG HHb (Measured) (0.0-5.0) % ABG Methemoglobin (0.0-3.0) % ABG O2 Capacity (16-24) mL/dL Jim Test ABG Potassium (3.6-5.2) mmol/L A-a O2 Difference mm/Hg Hgb O2 Saturation (95.0-98.0) % Glucose (75-110) mg/dL Lactate (0.7-2.1) mmol/L Liter Flow Vent Mode FiO2 % Sodium 140 (132-148) mmol/l Potassium 4.6 (3.6-5.0) MMOL/L Chloride 106 (98-107) mmol/L Carbon Dioxide 26 (22-30) mmol/L Anion Gap 12 (10-20) BUN 15 (9-20) mg/dl Creatinine 1.1 (0.8-1.5) mg/dL Est GFR ( Amer) > 60 Est GFR (Non-Af Amer) > 60 POC Glucose (mg/dL) 155 H 122 H (65-110) mg/dL Random Glucose 168 H (75-110) mg/dL Calcium 8.7 (8.4-10.2) mg/dL Total Bilirubin 1.8 H (0.2-1.3) mg/dl GGT (8-78) U/L AST 74 H (17-59) U/L ALT 57 (21-72) U/L Alkaline Phosphatase 183 H (38-126) U/L Ammonia (16-60) umo/L Total Protein 6.8 (6.3-8.2) G/DL Albumin 2.7 L (3.5-5.0) g/dL Globulin 4.1 H (2.2-3.9) gm/dL Albumin/Globulin Ratio 0.7 L (1.0-2.1) Arterial Blood Potassium (3.6-5.2) mmol/L 09/19/16 09/19/16 09/19/16 Range/Units 16:46 13:00 11:24 WBC (4.8-10.8) K/uL RBC (4.40-5.90) Mil/uL Hgb (12.0-18.0) g/dL Hct (35.0-51.0) % MCV (80.0-94.0) fl MCH (27.0-31.0) pg MCHC (33.0-37.0) g/dL RDW (11.5-14.5) % Plt Count (130-400) K/uL pCO2 59 H (35-45) mm/Hg pO2 77 L (80-100) mm/Hg HCO3 27.0 (21-28) mmol/L ABG pH 7.32 L (7.35-7.45) ABG Total CO2 32.2 H (22-28) mmol/L ABG O2 Saturation 96.2 (95-98) % ABG O2 Content 17.4 (15-23) ML/dL ABG Base Excess 2.8 (-2.0-3.0) mmol/L ABG Hemoglobin 13.3 (11.7-17.4) g/dL ABG Carboxyhemoglobin 2.1 H (0.5-1.5) % POC ABG HHb (Measured) 3.7 (0.0-5.0) % ABG Methemoglobin 1.3 (0.0-3.0) % ABG O2 Capacity 18.1 (16-24) mL/dL Jim Test Yes ABG Potassium (3.6-5.2) mmol/L A-a O2 Difference 170.0 mm/Hg Hgb O2 Saturation 92.9 L (95.0-98.0) % Glucose (75-110) mg/dL Lactate (0.7-2.1) mmol/L Liter Flow 35 Vent Mode High flow lpm FiO2 45.0 % Sodium (132-148) mmol/l Potassium (3.6-5.0) MMOL/L Chloride (98-107) mmol/L Carbon Dioxide (22-30) mmol/L Anion Gap (10-20) BUN (9-20) mg/dl Creatinine (0.8-1.5) mg/dL Est GFR ( Amer) Est GFR (Non-Af Amer) POC Glucose (mg/dL) 115 H 135 H (65-110) mg/dL Random Glucose (75-110) mg/dL Calcium (8.4-10.2) mg/dL Total Bilirubin (0.2-1.3) mg/dl GGT (8-78) U/L AST (17-59) U/L ALT (21-72) U/L Alkaline Phosphatase (38-126) U/L Ammonia (16-60) umo/L Total Protein (6.3-8.2) G/DL Albumin (3.5-5.0) g/dL Globulin (2.2-3.9) gm/dL Albumin/Globulin Ratio (1.0-2.1) Arterial Blood Potassium (3.6-5.2) mmol/L 09/19/16 09/19/16 Range/Units 10:30 08:55 WBC (4.8-10.8) K/uL RBC (4.40-5.90) Mil/uL Hgb (12.0-18.0) g/dL Hct (35.0-51.0) % MCV (80.0-94.0) fl MCH (27.0-31.0) pg MCHC (33.0-37.0) g/dL RDW (11.5-14.5) % Plt Count (130-400) K/uL pCO2 67 H (35-45) mm/Hg pO2 73 L (80-100) mm/Hg HCO3 27.6 (21-28) mmol/L ABG pH 7.29 L (7.35-7.45) ABG Total CO2 34.3 H (22-28) mmol/L ABG O2 Saturation 95.4 (95-98) % ABG O2 Content (15-23) ML/dL ABG Base Excess 3.6 H (-2.0-3.0) mmol/L ABG Hemoglobin (11.7-17.4) g/dL ABG Carboxyhemoglobin (0.5-1.5) % POC ABG HHb (Measured) (0.0-5.0) % ABG Methemoglobin (0.0-3.0) % ABG O2 Capacity (16-24) mL/dL Jim Test Yes ABG Potassium 4.5 (3.6-5.2) mmol/L A-a O2 Difference 164.0 mm/Hg Hgb O2 Saturation (95.0-98.0) % Glucose 171 H (75-110) mg/dL Lactate 0.7 (0.7-2.1) mmol/L Liter Flow Vent Mode High flow lpm FiO2 45.0 % Sodium 139.0 (132-148) mmol/l Potassium (3.6-5.0) MMOL/L Chloride 113.0 H (98-107) mmol/L Carbon Dioxide (22-30) mmol/L Anion Gap (10-20) BUN (9-20) mg/dl Creatinine (0.8-1.5) mg/dL Est GFR ( Amer) Est GFR (Non-Af Amer) POC Glucose (mg/dL) (65-110) mg/dL Random Glucose (75-110) mg/dL Calcium (8.4-10.2) mg/dL Total Bilirubin (0.2-1.3) mg/dl GGT 183 H (8-78) U/L AST (17-59) U/L ALT (21-72) U/L Alkaline Phosphatase (38-126) U/L Ammonia 35 D (16-60) umo/L Total Protein (6.3-8.2) G/DL Albumin (3.5-5.0) g/dL Globulin (2.2-3.9) gm/dL Albumin/Globulin Ratio (1.0-2.1) Arterial Blood Potassium 4.5 (3.6-5.2) mmol/L Laboratory Results - last 24 hr 09/19/16 09/19/16 09/19/16 08:55 10:30 11:24 WBC RBC Hgb Hct MCV MCH MCHC RDW Plt Count pCO2 67 H pO2 73 L HCO3 27.6 ABG pH 7.29 L ABG Total CO2 34.3 H ABG O2 Saturation 95.4 ABG O2 Content ABG Base Excess 3.6 H ABG Hemoglobin ABG Carboxyhemoglobin POC ABG HHb (Measured) ABG Methemoglobin ABG O2 Capacity Jim Test Yes ABG Potassium 4.5 A-a O2 Difference 164.0 Hgb O2 Saturation Sodium 139.0 Chloride 113.0 H Glucose 171 H Lactate 0.7 Liter Flow Vent Mode High flow lpm FiO2 45.0 Potassium Carbon Dioxide Anion Gap BUN Creatinine Est GFR ( Amer) Est GFR (Non-Af Amer) POC Glucose (mg/dL) 135 H Random Glucose Calcium Total Bilirubin GGT 183 H AST ALT Alkaline Phosphatase Ammonia 35 D Total Protein Albumin Globulin Albumin/Globulin Ratio Arterial Blood Potassium 4.5 09/19/16 09/19/16 09/19/16 13:00 16:46 21:47 WBC RBC Hgb Hct MCV MCH MCHC RDW Plt Count pCO2 59 H pO2 77 L HCO3 27.0 ABG pH 7.32 L ABG Total CO2 32.2 H ABG O2 Saturation 96.2 ABG O2 Content 17.4 ABG Base Excess 2.8 ABG Hemoglobin 13.3 ABG Carboxyhemoglobin 2.1 H POC ABG HHb (Measured) 3.7 ABG Methemoglobin 1.3 ABG O2 Capacity 18.1 Jim Test Yes ABG Potassium A-a O2 Difference 170.0 Hgb O2 Saturation 92.9 L Sodium Chloride Glucose Lactate Liter Flow 35 Vent Mode High flow lpm FiO2 45.0 Potassium Carbon Dioxide Anion Gap BUN Creatinine Est GFR ( Amer) Est GFR (Non-Af Amer) POC Glucose (mg/dL) 115 H 122 H Random Glucose Calcium Total Bilirubin GGT AST ALT Alkaline Phosphatase Ammonia Total Protein Albumin Globulin Albumin/Globulin Ratio Arterial Blood Potassium 09/20/16 09/20/16 05:05 05:13 WBC 7.6 RBC 4.28 L Hgb 13.0 Hct 40.6 MCV 94.9 H MCH 30.4 MCHC 32.1 L RDW 14.9 H Plt Count 111 L pCO2 pO2 HCO3 ABG pH ABG Total CO2 ABG O2 Saturation ABG O2 Content ABG Base Excess ABG Hemoglobin ABG Carboxyhemoglobin POC ABG HHb (Measured) ABG Methemoglobin ABG O2 Capacity Jim Test ABG Potassium A-a O2 Difference Hgb O2 Saturation Sodium 140 Chloride 106 Glucose Lactate Liter Flow Vent Mode FiO2 Potassium 4.6 Carbon Dioxide 26 Anion Gap 12 BUN 15 Creatinine 1.1 Est GFR ( Amer) > 60 Est GFR (Non-Af Amer) > 60 POC Glucose (mg/dL) 155 H Random Glucose 168 H Calcium 8.7 Total Bilirubin 1.8 H GGT AST 74 H ALT 57 Alkaline Phosphatase 183 H Ammonia Total Protein 6.8 Albumin 2.7 L Globulin 4.1 H Albumin/Globulin Ratio 0.7 L Arterial Blood Potassium Fingerstick Blood Sugar Results: 155 Review of Systems - Review of Systems Review of Systems: see HPI Critical Care Progress Note - Ventilator Checklist Head of Bed 30 Degrees: Yes Daily Sedation Vacation: No (no sedation) Daily Assessment of Readiness to Wean: No (pt JUST intubated) Daily Spontaneous Breathing Trial: No (pt JUST intubated) PUD Prophalyxis: Yes DVT Prophylaxis: Yes Oral Care with Chlorhexidine Gluconate {CHG}: Yes - Vent Settings MODE:: PRVC TIDAL VOLUME:: 550 RESP RATE:: 14 FIO2:: 60 Assessment/Plan - Assessment and Plan (Free Text) Plan: 51 yo M w PMHx of HTN, Crohn's, and etoh dependency was admitted for seizures, etoh withdrawal, and is currently in the ICU for hypercapnia 1) Acute respiratory failure with hypercapnia, aspiration pneumonia -Hypercapnia remains increased w pCO@ of 65 this AM -Pt needed to be intubated this AM due to worsening SpO2% despite being on HFNC up to 100% -Vent: Rate 14, TVol 550, PEEP 5, FiO2 60% -CXR shows ET 1.5" above maxwell -Teflaro 200mg IVPB Q12H -Albuterol 0.083% 2.5mg INH RQID -D5 1/2NS 75cc/hr -f/u Respiratory function -f/u HIV -f/u ABGs -f/u recommendations of specialists 2) Altered mental status -Unknown etiology; not awake, minimally responsive this morning -f/u Ammonia -f/u mentation 3) Congestive Cardiomyopathy -Likely etoh induced -LV Systolic Fcn severely impaired, EF of 15-20% -Severe Mitral Regurg, Moderate Tricuspid Regurg -Coreg 3.125mg Q12H -Amiodarone 200mg PO BID -f/u Vitals -f/u Cardiology recommendations 4) Hepatic encephalopathy -Rifaximin 550 mg PO BID, as per GI -Lactulose 20 gm PO Daily -f/u GGT -f/u Ammonia -f/u GI Recommendations 5) Thrombocytopenia -No signs of active bleed at this time 6) Acute Renal Failure -Improved, Stable, GFR: >60, will continue to follow labs and I/O's <Diomedes Dominguez - Last Filed: 09/20/16 13:14> CCU Objective - Vital Signs / Intake & Output Intake and Output (Last 8hrs): Intake & Output 09/19/16 09/20/16 09/20/16 22:59 06:59 14:59 Intake Total 762 450 Output Total 1125 800 Balance -363 -350 Intake: IV 562 450 Intake, Piggyback 200 Output: Urine 1125 800 Urethral ([place]) 1125 800 - Medications Active Medications: Active Medications Generic Name Dose Route Start Last Admin Trade Name Freq PRN Reason Stop Dose Admin Acetaminophen 650 mg 09/10/16 02:44 09/15/16 01:19 Tylenol 650mg/20.3ml Solution Ud PO 650 mg Q6 PRN Administration Fever >100.4 F Albuterol Sulfate 2.5 mg 09/17/16 12:00 09/20/16 11:44 Albuterol 0.083% Inhal Madelin (2.5 Mg/3 Ml) Ud INH 2.5 mg RQID CORTNEY Administration Amiodarone HCl 200 mg 09/16/16 09:30 09/19/16 17:01 Cordarone PO Not Given BID [facility] Carvedilol 3.125 mg 09/14/16 11:30 09/19/16 20:44 Coreg PO 3.125 mg Q12 C[facility]NEY Administration Levetiracetam 500 mg/ Sodium 105 mls @ 210 mls/hr 09/08/16 12:45 09/20/16 10:37 Chloride IVPB 210 mls/hr Q12 C[facility]NEY Administration Ceftaroline Fosamil 200 mg/ 100 mls @ 100 mls/hr 09/16/16 11:15 09/20/16 10:32 Sodium Chloride IVPB 100 mls/hr Q12 C[facility]NEY Administration Insulin Human Regular 0 units 09/03/16 23:00 09/20/16 10:38 Humulin R SC 2 unit ACCU-CHECK [facility] Administration Protocol Lactulose 20 gm 09/13/16 11:25 09/19/16 17:01 Enulose PO Not Given DAILY [facility] Pantoprazole Sodium 40 mg 09/19/16 10:45 09/20/16 10:37 Protonix Inj IVP 40 mg DAILY [facility] Administration Rifaximin 550 mg 09/19/16 17:00 09/19/16 17:02 Xifaxan PO Not Given BID [facility] Spironolactone 50 mg 09/14/16 11:15 09/19/16 17:01 Aldactone PO Not Given DAILY [facility] - Patient Studies Lab Studies: Lab Studies 09/20/16 09/20/16 09/20/16 Range/Units 12:22 09:12 05:13 WBC (4.8-10.8) K/uL RBC (4.40-5.90) Mil/uL Hgb (12.0-18.0) g/dL Hct (35.0-51.0) % MCV (80.0-94.0) fl MCH (27.0-31.0) pg MCHC (33.0-37.0) g/dL RDW (11.5-14.5) % Plt Count (130-400) K/uL pCO2 (35-45) mm/Hg pO2 (80-100) mm/Hg HCO3 (21-28) mmol/L ABG pH (7.35-7.45) ABG Total CO2 (22-28) mmol/L ABG O2 Saturation (95-98) % ABG O2 Content (15-23) ML/dL ABG Base Excess (-2.0-3.0) mmol/L ABG Hemoglobin (11.7-17.4) g/dL ABG Carboxyhemoglobin (0.5-1.5) % POC ABG HHb (Measured) (0.0-5.0) % ABG Methemoglobin (0.0-3.0) % ABG O2 Capacity (16-24) mL/dL Jim Test A-a O2 Difference mm/Hg Hgb O2 Saturation (95.0-98.0) % Liter Flow Vent Mode FiO2 % Sodium (132-148) mmol/l Potassium (3.6-5.0) MMOL/L Chloride (98-107) mmol/L Carbon Dioxide (22-30) mmol/L Anion Gap (10-20) BUN (9-20) mg/dl Creatinine (0.8-1.5) mg/dL Est GFR ( Amer) Est GFR (Non-Af Amer) POC Glucose (mg/dL) 140 H 162 H 155 H (65-110) mg/dL Random Glucose (75-110) mg/dL Calcium (8.4-10.2) mg/dL Total Bilirubin (0.2-1.3) mg/dl GGT (8-78) U/L AST (17-59) U/L ALT (21-72) U/L Alkaline Phosphatase (38-126) U/L Total Protein (6.3-8.2) G/DL Albumin (3.5-5.0) g/dL Globulin (2.2-3.9) gm/dL Albumin/Globulin Ratio (1.0-2.1) 09/20/16 09/19/16 09/19/16 Range/Units 05:05 21:47 16:46 WBC 7.6 (4.8-10.8) K/uL RBC 4.28 L (4.40-5.90) Mil/uL Hgb 13.0 (12.0-18.0) g/dL Hct 40.6 (35.0-51.0) % MCV 94.9 H (80.0-94.0) fl MCH 30.4 (27.0-31.0) pg MCHC 32.1 L (33.0-37.0) g/dL RDW 14.9 H (11.5-14.5) % Plt Count 111 L (130-400) K/uL pCO2 (35-45) mm/Hg pO2 (80-100) mm/Hg HCO3 (21-28) mmol/L ABG pH (7.35-7.45) ABG Total CO2 (22-28) mmol/L ABG O2 Saturation (95-98) % ABG O2 Content (15-23) ML/dL ABG Base Excess (-2.0-3.0) mmol/L ABG Hemoglobin (11.7-17.4) g/dL ABG Carboxyhemoglobin (0.5-1.5) % POC ABG HHb (Measured) (0.0-5.0) % ABG Methemoglobin (0.0-3.0) % ABG O2 Capacity (16-24) mL/dL Jim Test A-a O2 Difference mm/Hg Hgb O2 Saturation (95.0-98.0) % Liter Flow Vent Mode FiO2 % Sodium 140 (132-148) mmol/l Potassium 4.6 (3.6-5.0) MMOL/L Chloride 106 (98-107) mmol/L Carbon Dioxide 26 (22-30) mmol/L Anion Gap 12 (10-20) BUN 15 (9-20) mg/dl Creatinine 1.1 (0.8-1.5) mg/dL Est GFR ( Amer) > 60 Est GFR (Non-Af Amer) > 60 POC Glucose (mg/dL) 122 H 115 H (65-110) mg/dL Random Glucose 168 H (75-110) mg/dL Calcium 8.7 (8.4-10.2) mg/dL Total Bilirubin 1.8 H (0.2-1.3) mg/dl GGT (8-78) U/L AST 74 H (17-59) U/L ALT 57 (21-72) U/L Alkaline Phosphatase 183 H (38-126) U/L Total Protein 6.8 (6.3-8.2) G/DL Albumin 2.7 L (3.5-5.0) g/dL Globulin 4.1 H (2.2-3.9) gm/dL Albumin/Globulin Ratio 0.7 L (1.0-2.1) 09/19/16 09/19/16 Range/Units 13:00 10:30 WBC (4.8-10.8) K/uL RBC (4.40-5.90) Mil/uL Hgb (12.0-18.0) g/dL Hct (35.0-51.0) % MCV (80.0-94.0) fl MCH (27.0-31.0) pg MCHC (33.0-37.0) g/dL RDW (11.5-14.5) % Plt Count (130-400) K/uL pCO2 59 H (35-45) mm/Hg pO2 77 L (80-100) mm/Hg HCO3 27.0 (21-28) mmol/L ABG pH 7.32 L (7.35-7.45) ABG Total CO2 32.2 H (22-28) mmol/L ABG O2 Saturation 96.2 (95-98) % ABG O2 Content 17.4 (15-23) ML/dL ABG Base Excess 2.8 (-2.0-3.0) mmol/L ABG Hemoglobin 13.3 (11.7-17.4) g/dL ABG Carboxyhemoglobin 2.1 H (0.5-1.5) % POC ABG HHb (Measured) 3.7 (0.0-5.0) % ABG Methemoglobin 1.3 (0.0-3.0) % ABG O2 Capacity 18.1 (16-24) mL/dL Jim Test Yes A-a O2 Difference 170.0 mm/Hg Hgb O2 Saturation 92.9 L (95.0-98.0) % Liter Flow 35 Vent Mode High flow lpm FiO2 45.0 % Sodium (132-148) mmol/l Potassium (3.6-5.0) MMOL/L Chloride (98-107) mmol/L Carbon Dioxide (22-30) mmol/L Anion Gap (10-20) BUN (9-20) mg/dl Creatinine (0.8-1.5) mg/dL Est GFR ( Amer) Est GFR (Non-Af Amer) POC Glucose (mg/dL) (65-110) mg/dL Random Glucose (75-110) mg/dL Calcium (8.4-10.2) mg/dL Total Bilirubin (0.2-1.3) mg/dl GGT 183 H (8-78) U/L AST (17-59) U/L ALT (21-72) U/L Alkaline Phosphatase (38-126) U/L Total Protein (6.3-8.2) G/DL Albumin (3.5-5.0) g/dL Globulin (2.2-3.9) gm/dL Albumin/Globulin Ratio (1.0-2.1) Laboratory Results - last 24 hr 09/19/16 09/19/16 09/19/16 10:30 13:00 16:46 WBC RBC Hgb Hct MCV MCH MCHC RDW Plt Count pCO2 59 H pO2 77 L HCO3 27.0 ABG pH 7.32 L ABG Total CO2 32.2 H ABG O2 Saturation 96.2 ABG O2 Content 17.4 ABG Base Excess 2.8 ABG Hemoglobin 13.3 ABG Carboxyhemoglobin 2.1 H POC ABG HHb (Measured) 3.7 ABG Methemoglobin 1.3 ABG O2 Capacity 18.1 Jim Test Yes A-a O2 Difference 170.0 Hgb O2 Saturation 92.9 L Liter Flow 35 Vent Mode High flow lpm FiO2 45.0 Sodium Potassium Chloride Carbon Dioxide Anion Gap BUN Creatinine Est GFR ( Amer) Est GFR (Non-Af Amer) POC Glucose (mg/dL) 115 H Random Glucose Calcium Total Bilirubin GGT 183 H AST ALT Alkaline Phosphatase Total Protein Albumin Globulin Albumin/Globulin Ratio 09/19/16 09/20/16 09/20/16 21:47 05:05 05:13 WBC 7.6 RBC 4.28 L Hgb 13.0 Hct 40.6 MCV 94.9 H MCH 30.4 MCHC 32.1 L RDW 14.9 H Plt Count 111 L pCO2 pO2 HCO3 ABG pH ABG Total CO2 ABG O2 Saturation ABG O2 Content ABG Base Excess ABG Hemoglobin ABG Carboxyhemoglobin POC ABG HHb (Measured) ABG Methemoglobin ABG O2 Capacity Jim Test A-a O2 Difference Hgb O2 Saturation Liter Flow Vent Mode FiO2 Sodium 140 Potassium 4.6 Chloride 106 Carbon Dioxide 26 Anion Gap 12 BUN 15 Creatinine 1.1 Est GFR ( Amer) > 60 Est GFR (Non-Af Amer) > 60 POC Glucose (mg/dL) 122 H 155 H Random Glucose 168 H Calcium 8.7 Total Bilirubin 1.8 H GGT AST 74 H ALT 57 Alkaline Phosphatase 183 H Total Protein 6.8 Albumin 2.7 L Globulin 4.1 H Albumin/Globulin Ratio 0.7 L 09/20/16 09/20/16 09:12 12:22 WBC RBC Hgb Hct MCV MCH MCHC RDW Plt Count pCO2 pO2 HCO3 ABG pH ABG Total CO2 ABG O2 Saturation ABG O2 Content ABG Base Excess ABG Hemoglobin ABG Carboxyhemoglobin POC ABG HHb (Measured) ABG Methemoglobin ABG O2 Capacity Jim Test A-a O2 Difference Hgb O2 Saturation Liter Flow Vent Mode FiO2 Sodium Potassium Chloride Carbon Dioxide Anion Gap BUN Creatinine Est GFR ( Amer) Est GFR (Non-Af Amer) POC Glucose (mg/dL) 162 H 140 H Random Glucose Calcium Total Bilirubin GGT AST ALT Alkaline Phosphatase Total Protein Albumin Globulin Albumin/Globulin Ratio Assessment/Plan (1) Acute respiratory failure with hypercapnia Current Visit: Yes Status: Acute Comment: IV antibiotics with IV Vanco and Zosyn Aggressive Pulmonary toilets, duonebs q4h. Wean off Fio2 Daily SAT/SBT GI/DVT prophylaxis (2) Altered mental status Current Visit: Yes Status: Chronic Priority: High Comment: Multifacrorial, Toxic/Metabolic encephalopathy frequent neuro-check, Seizure precautions. Head CT scan and MRI on admission negative (3) Hepatic encephalopathy Current Visit: Yes Status: Acute Comment: Lactulose 20 gm PO BID Rifaximin 550 mg PO BID (4) Alcohol withdrawal seizure Current Visit: Yes Status: Acute Comment: Seizure free since admission (5) Aspiration pneumonia Current Visit: Yes Status: Acute Priority: High Comment: Vancomycin 750 mg IVPB Q12 CORTNEY Piperacillin Sod/Tazobactam 2.25 gm IVPB Q8 CORTNEY (6) Thrombocytopenia Current Visit: Yes Status: Acute Comment: No signs of active bleed at this time (7) Congestive cardiomyopathy Current Visit: Yes Status: Chronic Priority: High Attending/Attestation - Attestation I have personally seen and examined this patient.: Yes I have fully participated in the care of the patient.: Yes I have reviewed all pertinent clinical information: Yes Notes (Text): 09/20/16 12:45 Today: Tuesday, September 20, 2016 The Patient was seen and examined at the bedside, Medical records reviewed, all clinical/lab/hemodynamic/radiographic data were reviewed and management issues were discussed and formulated, Events reviewed Pain issues, skin care, head of the bed elevation, GI/DVT prophylaxis, glycemic control were addressed. Agree with above treatment plans as transcribed in Dr. Leyva note 51 Y/O M with PNHx of HTN, DM, cardiomyopathy (EF 10-15%), Crohn's disease and EtOH Dependency with Alcoholic Liver Disease Who initially presented to the ED on 08/30 with new onset seizure in the sitting of Etoh withdrawal and Delirium Tremans. Patient had Head CT scan and MRI on admission (negative for acute bleed/stroke) Hospital course noted for electrolytes imbalance, Thrombocytopenia and Acute kidney injury (renal function better), acute respiratory failure with hypercabnia, Pt failed extubation and was reintubated couple of time, last extubation was ov 09/15 to HFNC, However he is more somnolent today, the ABG showed acute respiratory acidosis with PH 7.26, CO2 of 59--->65 Afebrile overnight, HR controlled, Seizure free Patient was semi-emergently intubated today for worsening mental status will repeate ABG, post Reintubation Patient will likely need Trach Total critical care time 59 minutes
[2016-09-20] MEDS: Albuterol 0.083% Inhal Sol (2.5 mg/3 mL) UD INH SCH ×4 (08:59→20:05)
[2016-09-20] MEDS ORDERED: Midazolam 2 MG/2 ML VIAL ONE (09:08)
[2016-09-20] MEDS ORDERED: Succinylcholine 200 mg/10 ml Inj IV ONE (09:15)
[2016-09-20] MEDS ORDERED: Succinylcholine 200 mg/10 ml Inj IV STA (09:15)
[2016-09-20] MEDS: levETIRAcetam 500 MG in Sodium Chloride 0.9% 100 ML IVPB SCH ×2 (10:37→21:17)
[2016-09-20] MEDS: Insulin Regular 100 units/ml SC SCH ×4 (10:38→22:00)
--- NOTE | 2016-09-20 10:47 | RAD ---
HISTORY: post intubation COMPARISON: 09/18/2016 FINDINGS: LUNGS: Examination limited. Left costophrenic angle not included examination. Opacity at left base may reflect pleural effusion. Probable small right pleural effusion. Nonspecific elevation of right hemidiaphragm. No definite consolidation. No pneumothorax. PLEURA: As above. CARDIOVASCULAR: Normal heart size. Endotracheal tube tip approximately 2.1 cm above tracheal maxwell. Tracheal maxwell is difficult to identify precisely on the basis of this examination. OSSEOUS STRUCTURES: No significant abnormalities. VISUALIZED UPPER ABDOMEN: Normal. OTHER FINDINGS: None. IMPRESSION: ET tube positioned approximately 2.1 cm above tracheal maxwell. Probable bilateral pleural effusion. Limited examination does not include left costophrenic angle. Elevated right hemidiaphragm, nonspecific.
[2016-09-20 14:15] LABS: ABG ALLEN TEST YES; ABG MECHANICAL RATE 14; ARTERIAL BLOOD GAS HCO3 29.8 mmol/L (21-28); ARTERIAL BLOOD GAS MODE /PRVCA/C; ARTERIAL BLOOD GAS O2 CAPACITY 16.3 mL/dL (16-24); ARTERIAL BLOOD GAS O2 CONTENT 15.4 ML/dL (15-23); ARTERIAL BLOOD GAS PH 7.45 (7.35-7.45); ARTERIAL BLOOD GAS PO2 59 mm/Hg (80-100); ARTERIAL BLOOD HGB O2 SAT 91.7 % (95.0-98.0); ATERIAL BLOOD GAS PEEP 5; CARBOXYHEMOGLOBIN 1.6 % (0.5-1.5); HHB 5.3 % (0.0-5.0); METHEMOGLOBIN 1.4 % (0.0-3.0)
--- NOTE | 2016-09-20 15:42 | CP.PCM.PN ---
Subjective - Date & Time of Evaluation Date of Evaluation: 09/20/16 Time of Evaluation: 15:40 - Subjective Subjective: ID NOTE HAVE DISCONTINUED TEFLARO STARTED ZOSYN IN ADJUSTED DOSE Objective - Vital Signs/Intake and Output Vital Signs (last 24 hours): Temp Pulse Resp BP Pulse Ox 98.8 F 81 15 103/64 94 L 09/20/16 12:00 09/20/16 13:00 09/20/16 13:00 09/20/16 13:00 09/20/16 13:00 Intake and Output: 09/20/16 09/20/16 06:59 18:59 Intake Total 912 150 Output Total 1300 Balance -388 150 - Medications Medications: Current Medications Acetaminophen (Tylenol 650mg/20.3ml Solution Ud) 650 mg PO Q6 PRN PRN Reason: Fever >100.4 F Last Admin: 09/15/16 01:19 Dose: 650 mg Albuterol Sulfate (Albuterol 0.083% Inhal Madelin (2.5 Mg/3 Ml) Ud) 2.5 mg INH RQID [facility] Last Admin: 09/20/16 11:44 Dose: 2.5 mg Amiodarone HCl (Cordarone) 200 mg PO BID [facility] Last Admin: 09/20/16 09:00 Dose: Not Given Carvedilol (Coreg) 3.125 mg PO Q12 [facility] Last Admin: 09/20/16 09:00 Dose: Not Given Levetiracetam 500 mg/ Sodium (Chloride) 105 mls @ 210 mls/hr IVPB Q12 [facility] Last Admin: 09/20/16 10:37 Dose: 210 mls/hr Propofol (Diprivan) 100 mls @ 2.98 mls/hr IV .Q24H [facility]; 5 MCG/KG/MIN PRN Reason: Protocol Stop: 09/21/16 15:31 Piperacillin Sod/Tazobactam (Sod 2.25 gm/ Sodium Chloride) 100 mls @ 100 mls/ hr IVPB Q6 [facility] Insulin Human Regular (Humulin R) 0 units SC ACCU-CHECK [facility] PRN Reason: Protocol Last Admin: 09/20/16 13:15 Dose: Not Given Lactulose (Enulose) 20 gm PO DAILY [facility] Last Admin: 09/19/16 17:01 Dose: Not Given Pantoprazole Sodium (Protonix Inj) 40 mg IVP DAILY [facility] Last Admin: 09/20/16 10:37 Dose: 40 mg Rifaximin (Xifaxan) 550 mg PO BID [facility] Last Admin: 09/20/16 09:00 Dose: Not Given Spironolactone (Aldactone) 50 mg PO DAILY [facility] Last Admin: 09/19/16 17:01 Dose: Not Given - Labs Labs: 09/20/16 05:05 09/20/16 05:05 PT 13.9 SECONDS (9.6-11.2) H 09/15/16 12:05 INR 1.34 (0.92-1.08) H 09/15/16 12:05 APTT 28.7 SECONDS (23.3-32.5) 09/15/16 12:05
[2016-09-21] MEDS ORDERED: Dextrose 5%/0.45% NS 1,000 ML IV SCH
[2016-09-21 05:36] LABS: ABG ALLEN TEST YES; ABG MECHANICAL RATE 14; ARTERIAL BLOOD GAS HCO3 28.6 mmol/L (21-28); ARTERIAL BLOOD GAS MODE PRVC/AC; ARTERIAL BLOOD GAS O2 CAPACITY 15.5 mL/dL (16-24); ARTERIAL BLOOD GAS O2 CONTENT 15.4 ML/dL (15-23); ARTERIAL BLOOD GAS PH 7.38 (7.35-7.45); ARTERIAL BLOOD GAS PO2 163 mm/Hg (80-100); ARTERIAL BLOOD HGB O2 SAT 97.1 % (95.0-98.0); ATERIAL BLOOD GAS PEEP 5; CARBOXYHEMOGLOBIN 0.8 % (0.5-1.5); HHB 0.9 % (0.0-5.0); METHEMOGLOBIN 1.1 % (0.0-3.0)
[2016-09-21] MEDS: Insulin Regular 100 units/ml SC SCH (06:22)
[2016-09-21 06:48] LABS: ALB/GLOB RATIO 0.6 (1.0-2.1); ALKALINE PHOSPHATASE 189 U/L (38-126); ALT/SGPT 54 U/L (21-72); AST/SGOT 77 U/L (17-59); BILIRUBIN,TOTAL 1.3 mg/dl (0.2-1.3); BLOOD UREA NITROGEN 18 mg/dl (9-20); CALCIUM 8.1 mg/dL (8.4-10.2); CARBON DIOXIDE 28 mmol/L (22-30); CHLORIDE 108 mmol/L (98-107); GFR AFRICAN-AMERICAN > 60; GLUCOSE,RANDOM 137 mg/dL (75-110); POTASSIUM 3.9 MMOL/L (3.6-5.0); SODIUM 146 mmol/l (132-148); TOTAL PROTEIN 5.6 G/DL (6.3-8.2)
[2016-09-21] MEDS: Albuterol 0.083% Inhal Sol (2.5 mg/3 mL) UD INH SCH ×4 (08:13→19:50)
[2016-09-21] MEDS: levETIRAcetam 500 MG in Sodium Chloride 0.9% 100 ML IVPB SCH ×2 (08:29→20:13)
--- NOTE | 2016-09-21 08:42 | RAD ---
HISTORY: vented COMPARISON: 09/20/2016 FINDINGS: LUNGS: Evaluation limited due to oblique positioning. PLEURA: Hazy opacification of left costophrenic angle may reflect small pleural effusion. No evidence right pleural effusion. CARDIOVASCULAR: ET tube NG tube are unchanged. OSSEOUS STRUCTURES: No significant abnormalities. VISUALIZED UPPER ABDOMEN: Normal. OTHER FINDINGS: None. IMPRESSION: Possible small left pleural effusion. Lines and tubes unchanged.
[2016-09-21 08:55] LABS: HEMATOCRIT 32.4 % (35.0-51.0); MEAN CELL VOLUME 94.4 fl (80.0-94.0); MEAN CORPUSCULAR HEMOGLOBIN 30.3 pg (27.0-31.0); MEAN CORPUSCULAR HGB CONC 32.1 g/dL (33.0-37.0); RED CELL DISTRIBUTION WIDTH 14.8 % (11.5-14.5)
--- NOTE | 2016-09-21 09:12 | CP.PCM.PN ---
Subjective - Date & Time of Evaluation Date of Evaluation: 09/21/16 Time of Evaluation: 08:30 - Subjective Subjective: Developed hypoxia and hypercpnoea requiring ventilatory support again On vent, sedated In sinus rhythm at 78 BPM BP 128/74 mm Hg Chest auscultation reveals rare crepitations, no wheez Labs show creatinine 1.4 mg/ electrolytes normal Excellent urine out put ?? Need for tracheostomy for bronch toilette and to reduce space Objective - Vital Signs/Intake and Output Vital Signs (last 24 hours): Temp Pulse Resp BP Pulse Ox 98.5 F 72 14 110/72 99 09/21/16 06:00 09/21/16 08:28 09/21/16 06:00 09/21/16 08:28 09/21/16 06:00 Intake and Output: 09/21/16 09/21/16 06:59 18:59 Intake Total 1740 314 Output Total 405 Balance 1335 314 - Medications Medications: Current Medications Acetaminophen (Tylenol 650mg/20.3ml Solution Ud) 650 mg PO Q6 PRN PRN Reason: Fever >100.4 F Last Admin: 09/15/16 01:19 Dose: 650 mg Albuterol Sulfate (Albuterol 0.083% Inhal Madelin (2.5 Mg/3 Ml) Ud) 2.5 mg INH RQID [facility] Last Admin: 09/21/16 08:13 Dose: 2.5 mg Amiodarone HCl (Cordarone) 200 mg PO BID [facility] Last Admin: 09/21/16 08:28 Dose: 200 mg Carvedilol (Coreg) 3.125 mg PO Q12 [facility] Last Admin: 09/21/16 08:28 Dose: 3.125 mg Levetiracetam 500 mg/ Sodium (Chloride) 105 mls @ 210 mls/hr IVPB Q12 [facility] Last Admin: 09/21/16 08:29 Dose: 210 mls/hr Propofol (Diprivan) 100 mls @ 2.98 mls/hr IV .Q24H [facility]; 5 MCG/KG/MIN PRN Reason: Protocol Stop: 09/21/16 15:31 Last Titration: 09/21/16 05:00 Dose: 10 mcg/kg/min Piperacillin Sod/Tazobactam (Sod 2.25 gm/ Sodium Chloride) 100 mls @ 100 mls/ hr IVPB Q6 [facility] Last Admin: 09/21/16 03:43 Dose: 100 mls/hr Dextrose/Sodium Chloride (Dextrose 5%/0.45% Ns 1000 Ml) 1,000 mls @ 75 mls/hr IV .[id number] [facility] Stop: 09/22/16 00:01 Last Admin: 09/21/16 00:00 Dose: 75 mls/hr Insulin Human Regular (Humulin R) 0 units SC ACCU-CHECK [facility] PRN Reason: Protocol Last Admin: 09/21/16 06:22 Dose: Not Given Lactulose (Enulose) 20 gm PO DAILY [facility] Last Admin: 09/21/16 08:28 Dose: Not Given Pantoprazole Sodium (Protonix Inj) 40 mg IVP DAILY [facility] Last Admin: 09/21/16 08:29 Dose: 40 mg Rifaximin (Xifaxan) 550 mg PO BID [facility] Last Admin: 09/21/16 08:29 Dose: 550 mg Spironolactone (Aldactone) 50 mg PO DAILY [facility] Last Admin: 09/21/16 08:27 Dose: 50 mg - Labs Labs: 09/20/16 05:05 09/21/16 05:45 PT 13.9 SECONDS (9.6-11.2) H 09/15/16 12:05 INR 1.34 (0.92-1.08) H 09/15/16 12:05 APTT 28.7 SECONDS (23.3-32.5) 09/15/16 12:05
--- NOTE | 2016-09-21 12:17 | CP.CCUPN ---
<Merrill Leyva T - Last Filed: 09/21/16 12:21> CCU Subjective - Physician Review Subjective (Free Text): Pt seen and examined at bedside in the ICU. Pt is currently intubated and unresponsive to voice, but does withdraw extremities x4 to pain. Pt is unable to answer questions and full ROS cannot be obtained. No known overnight complications or problems. CCU Objective - Vital Signs / Intake & Output Vital Signs (Last 4 hours): Vital Signs Temp Pulse Resp BP Pulse Ox 09/21/16 11:53 99.6 F 65 14 119/69 100 09/21/16 10:00 70 16 106/69 100 09/21/16 08:28 72 110/72 Intake and Output (Last 8hrs): Intake & Output 09/20/16 09/21/16 09/21/16 22:59 06:59 14:59 Intake Total 1172 1250 895 Output Total 505 400 Balance 667 850 895 Weight 219 lb Intake: IV 600 450 245 Intake, Piggyback 212 200 200 Tube Feeding 110 450 300 Free Water Flush 250 150 150 Output: Gastric Amount 5 Stomach 5 Urine 500 400 Urethral ([place]) 500 400 Other: # Bowel Movements 1 1 - Physical Exam Head: Positive for: Atraumatic, Normocephalic Pupils: Positive for: PERRL. Negative for: Sluggish, Non-Reactive Conjunctiva: Positive for: Normal. Negative for: Injected, Icteric Mouth: Positive for: Dry Pharnyx: Positive for: Other (intubated) Nose (External): Negative for: Abrasion Neck: Positive for: Trachea Midline. Negative for: JVD, Lymphadenopathy, Bruit Respiratory/Chest: Positive for: Decreased Breath Sounds, Rhonchi (minimally rhonchi throughout). Negative for: Respiratory Distress, Wheezes Cardiovascular: Positive for: Regular Rate and Rhythm, Normal S1, S2, Peripheal Pulses Present. Negative for: Murmurs Abdomen: Positive for: Normal Bowel Sounds. Negative for: Tenderness, Distention, Peritoneal Signs, Guarding Upper Extremity: Positive for: Normal Inspection, NORMAL PULSES. Negative for: Cyanosis, Edema Lower Extremity: Positive for: Normal Inspection, NORMAL PULSES. Negative for: Edema, CALF TENDERNESS Neurological: Positive for: Other (intubated, unresonsive to voice) Skin: Positive for: Warm, Dry, Normal Color. Negative for: Rashes Psychiatric: Positive for: Other (intubated, unresponsive to voice) - Medications Active Medications: Active Medications Generic Name Dose Route Start Last Admin Trade Name Freq PRN Reason Stop Dose Admin Acetaminophen 650 mg 09/10/16 02:44 09/15/16 01:19 Tylenol 650mg/20.3ml Solution Ud PO 650 mg Q6 PRN Administration Fever >100.4 F Albuterol Sulfate 2.5 mg 09/17/16 12:00 09/21/16 11:54 Albuterol 0.083% Inhal Madelin (2.5 Mg/3 Ml) Ud INH 2.5 mg RQID [facility] Administration Amiodarone HCl 200 mg 09/16/16 09:30 09/21/16 08:28 Cordarone PO 200 mg BID [facility] Administration Carvedilol 3.125 mg 09/14/16 11:30 09/21/16 08:28 Coreg PO 3.125 mg Q12 [facility] Administration Levetiracetam 500 mg/ Sodium 105 mls @ 210 mls/hr 09/08/16 12:45 09/21/16 08:29 Chloride IVPB 210 mls/hr Q12 [facility] Administration Propofol 100 mls @ 2.98 mls/hr 09/20/16 15:30 09/21/16 05:00 Diprivan IV 09/21/16 15:31 10 mcg/kg/min .Q24H [facility] Titration Protocol 5 MCG/KG/MIN Piperacillin Sod/Tazobactam 100 mls @ 100 mls/hr 09/20/16 16:00 09/21/16 09:31 Sod 2.25 gm/ Sodium Chloride IVPB 100 mls/hr Q6 [facility] Administration Lactulose 20 gm 09/13/16 11:25 09/21/16 08:28 Enulose PO Not Given DAILY [facility] Pantoprazole Sodium 40 mg 09/19/16 10:45 09/21/16 08:29 Protonix Inj IVP 40 mg DAILY [facility] Administration Prednisone 60 mg 09/21/16 12:00 Prednisone Tab PO DAILY [facility] Rifaximin 550 mg 09/19/16 17:00 09/21/16 08:29 Xifaxan PO 550 mg BID [facility] Administration Spironolactone 50 mg 09/14/16 11:15 09/21/16 08:27 Aldactone PO 50 mg DAILY [facility] Administration - Patient Studies Lab Studies: Lab Studies 09/21/16 09/21/16 09/21/16 Range/Units 08:30 05:45 04:58 WBC 5.0 (4.8-10.8) K/uL RBC 3.43 L (4.40-5.90) Mil/uL Hgb 10.4 L D (12.0-18.0) g/dL Hct 32.4 L (35.0-51.0) % MCV 94.4 H (80.0-94.0) fl MCH 30.3 (27.0-31.0) pg MCHC 32.1 L (33.0-37.0) g/dL RDW 14.8 H (11.5-14.5) % Plt Count 64 L D (130-400) K/uL pCO2 52 H (35-45) mm/Hg pO2 163 H (80-100) mm/Hg HCO3 28.6 H (21-28) mmol/L ABG pH 7.38 (7.35-7.45) ABG Total CO2 32.4 H (22-28) mmol/L ABG O2 Saturation 99.1 H (95-98) % ABG O2 Content 15.4 (15-23) ML/dL ABG Base Excess 4.7 H (-2.0-3.0) mmol/L ABG Hemoglobin 11.0 L (11.7-17.4) g/dL ABG Carboxyhemoglobin 0.8 (0.5-1.5) % POC ABG HHb (Measured) 0.9 (0.0-5.0) % ABG Methemoglobin 1.1 (0.0-3.0) % ABG O2 Capacity 15.5 L (16-24) mL/dL Jim Test Yes A-a O2 Difference 342.0 mm/Hg Hgb O2 Saturation 97.1 (95.0-98.0) % Liter Flow Vent Mode Prvc/ac Mechanical Rate 14 FiO2 80.0 % Tidal Volume 550 PEEP 5 Sodium 146 (132-148) mmol/l Potassium 3.9 (3.6-5.0) MMOL/L Chloride 108 H (98-107) mmol/L Carbon Dioxide 28 (22-30) mmol/L Anion Gap 14 (10-20) BUN 18 (9-20) mg/dl Creatinine 1.4 (0.8-1.5) mg/dL Est GFR ( Amer) > 60 Est GFR (Non-Af Amer) 53 POC Glucose (mg/dL) (65-110) mg/dL Random Glucose 137 H (75-110) mg/dL Calcium 8.1 L (8.4-10.2) mg/dL Total Bilirubin 1.3 (0.2-1.3) mg/dl AST 77 H (17-59) U/L ALT 54 (21-72) U/L Alkaline Phosphatase 189 H (38-126) U/L Ammonia 25 D (16-60) umo/L Total Protein 5.6 L (6.3-8.2) G/DL Albumin 2.1 L D (3.5-5.0) g/dL Globulin 3.5 (2.2-3.9) gm/dL Albumin/Globulin Ratio 0.6 L (1.0-2.1) HIV-1 Ab Rapid Screen Non reactive (NON REAC) 09/21/16 09/20/16 09/20/16 Range/Units 04:48 22:04 16:00 WBC (4.8-10.8) K/uL RBC (4.40-5.90) Mil/uL Hgb (12.0-18.0) g/dL Hct (35.0-51.0) % MCV (80.0-94.0) fl MCH (27.0-31.0) pg MCHC (33.0-37.0) g/dL RDW (11.5-14.5) % Plt Count (130-400) K/uL pCO2 (35-45) mm/Hg pO2 (80-100) mm/Hg HCO3 (21-28) mmol/L ABG pH (7.35-7.45) ABG Total CO2 (22-28) mmol/L ABG O2 Saturation (95-98) % ABG O2 Content (15-23) ML/dL ABG Base Excess (-2.0-3.0) mmol/L ABG Hemoglobin (11.7-17.4) g/dL ABG Carboxyhemoglobin (0.5-1.5) % POC ABG HHb (Measured) (0.0-5.0) % ABG Methemoglobin (0.0-3.0) % ABG O2 Capacity (16-24) mL/dL Jim Test A-a O2 Difference mm/Hg Hgb O2 Saturation (95.0-98.0) % Liter Flow Vent Mode Mechanical Rate FiO2 % Tidal Volume PEEP Sodium (132-148) mmol/l Potassium (3.6-5.0) MMOL/L Chloride (98-107) mmol/L Carbon Dioxide (22-30) mmol/L Anion Gap (10-20) BUN (9-20) mg/dl Creatinine (0.8-1.5) mg/dL Est GFR ( Amer) Est GFR (Non-Af Amer) POC Glucose (mg/dL) 127 H 135 H 114 H (65-110) mg/dL Random Glucose (75-110) mg/dL Calcium (8.4-10.2) mg/dL Total Bilirubin (0.2-1.3) mg/dl AST (17-59) U/L ALT (21-72) U/L Alkaline Phosphatase (38-126) U/L Ammonia (16-60) umo/L Total Protein (6.3-8.2) G/DL Albumin (3.5-5.0) g/dL Globulin (2.2-3.9) gm/dL Albumin/Globulin Ratio (1.0-2.1) HIV-1 Ab Rapid Screen (NON REAC) 09/20/16 09/20/16 09/20/16 Range/Units 13:45 12:22 05:28 WBC (4.8-10.8) K/uL RBC (4.40-5.90) Mil/uL Hgb (12.0-18.0) g/dL Hct (35.0-51.0) % MCV (80.0-94.0) fl MCH (27.0-31.0) pg MCHC (33.0-37.0) g/dL RDW (11.5-14.5) % Plt Count (130-400) K/uL pCO2 45 65 H (35-45) mm/Hg pO2 59 L 77 L (80-100) mm/Hg HCO3 29.8 H 25.2 (21-28) mmol/L ABG pH 7.45 7.26 L (7.35-7.45) ABG Total CO2 32.7 H 31.2 H (22-28) mmol/L ABG O2 Saturation 94.5 L 96.5 (95-98) % ABG O2 Content 15.4 17.7 (15-23) ML/dL ABG Base Excess 6.4 H 0.5 (-2.0-3.0) mmol/L ABG Hemoglobin 11.9 13.4 (11.7-17.4) g/dL ABG Carboxyhemoglobin 1.6 H 2.1 H (0.5-1.5) % POC ABG HHb (Measured) 5.3 H 3.4 (0.0-5.0) % ABG Methemoglobin 1.4 1.0 (0.0-3.0) % ABG O2 Capacity 16.3 18.3 (16-24) mL/dL Jim Test Yes Yes A-a O2 Difference 313.0 163.0 mm/Hg Hgb O2 Saturation 91.7 L 93.6 L (95.0-98.0) % Liter Flow 35 Vent Mode /prvca/c Mechanical Rate 14 FiO2 60.0 45.0 % Tidal Volume 550 PEEP 5 Sodium (132-148) mmol/l Potassium (3.6-5.0) MMOL/L Chloride (98-107) mmol/L Carbon Dioxide (22-30) mmol/L Anion Gap (10-20) BUN (9-20) mg/dl Creatinine (0.8-1.5) mg/dL Est GFR ( Amer) Est GFR (Non-Af Amer) POC Glucose (mg/dL) 140 H (65-110) mg/dL Random Glucose (75-110) mg/dL Calcium (8.4-10.2) mg/dL Total Bilirubin (0.2-1.3) mg/dl AST (17-59) U/L ALT (21-72) U/L Alkaline Phosphatase (38-126) U/L Ammonia (16-60) umo/L Total Protein (6.3-8.2) G/DL Albumin (3.5-5.0) g/dL Globulin (2.2-3.9) gm/dL Albumin/Globulin Ratio (1.0-2.1) HIV-1 Ab Rapid Screen (NON REAC) Laboratory Results - last 24 hr 09/20/16 09/20/16 09/20/16 05:28 12:22 13:45 WBC RBC Hgb Hct MCV MCH MCHC RDW Plt Count pCO2 65 H 45 pO2 77 L 59 L HCO3 25.2 29.8 H ABG pH 7.26 L 7.45 ABG Total CO2 31.2 H 32.7 H ABG O2 Saturation 96.5 94.5 L ABG O2 Content 17.7 15.4 ABG Base Excess 0.5 6.4 H ABG Hemoglobin 13.4 11.9 ABG Carboxyhemoglobin 2.1 H 1.6 H POC ABG HHb (Measured) 3.4 5.3 H ABG Methemoglobin 1.0 1.4 ABG O2 Capacity 18.3 16.3 Jim Test Yes Yes A-a O2 Difference 163.0 313.0 Hgb O2 Saturation 93.6 L 91.7 L Liter Flow 35 Vent Mode /prvca/c Mechanical Rate 14 FiO2 45.0 60.0 Tidal Volume 550 PEEP 5 Sodium Potassium Chloride Carbon Dioxide Anion Gap BUN Creatinine Est GFR ( Amer) Est GFR (Non-Af Amer) POC Glucose (mg/dL) 140 H Random Glucose Calcium Total Bilirubin AST ALT Alkaline Phosphatase Ammonia Total Protein Albumin Globulin Albumin/Globulin Ratio HIV-1 Ab Rapid Screen 09/20/16 09/20/16 09/21/16 16:00 22:04 04:48 WBC RBC Hgb Hct MCV MCH MCHC RDW Plt Count pCO2 pO2 HCO3 ABG pH ABG Total CO2 ABG O2 Saturation ABG O2 Content ABG Base Excess ABG Hemoglobin ABG Carboxyhemoglobin POC ABG HHb (Measured) ABG Methemoglobin ABG O2 Capacity Jim Test A-a O2 Difference Hgb O2 Saturation Liter Flow Vent Mode Mechanical Rate FiO2 Tidal Volume PEEP Sodium Potassium Chloride Carbon Dioxide Anion Gap BUN Creatinine Est GFR ( Amer) Est GFR (Non-Af Amer) POC Glucose (mg/dL) 114 H 135 H 127 H Random Glucose Calcium Total Bilirubin AST ALT Alkaline Phosphatase Ammonia Total Protein Albumin Globulin Albumin/Globulin Ratio HIV-1 Ab Rapid Screen 09/21/16 09/21/16 09/21/16 04:58 05:45 08:30 WBC 5.0 RBC 3.43 L Hgb 10.4 L D Hct 32.4 L MCV 94.4 H MCH 30.3 MCHC 32.1 L RDW 14.8 H Plt Count 64 L D pCO2 52 H pO2 163 H HCO3 28.6 H ABG pH 7.38 ABG Total CO2 32.4 H ABG O2 Saturation 99.1 H ABG O2 Content 15.4 ABG Base Excess 4.7 H ABG Hemoglobin 11.0 L ABG Carboxyhemoglobin 0.8 POC ABG HHb (Measured) 0.9 ABG Methemoglobin 1.1 ABG O2 Capacity 15.5 L Jim Test Yes A-a O2 Difference 342.0 Hgb O2 Saturation 97.1 Liter Flow Vent Mode Prvc/ac Mechanical Rate 14 FiO2 80.0 Tidal Volume 550 PEEP 5 Sodium 146 Potassium 3.9 Chloride 108 H Carbon Dioxide 28 Anion Gap 14 BUN 18 Creatinine 1.4 Est GFR ( Amer) > 60 Est GFR (Non-Af Amer) 53 POC Glucose (mg/dL) Random Glucose 137 H Calcium 8.1 L Total Bilirubin 1.3 AST 77 H ALT 54 Alkaline Phosphatase 189 H Ammonia 25 D Total Protein 5.6 L Albumin 2.1 L D Globulin 3.5 Albumin/Globulin Ratio 0.6 L HIV-1 Ab Rapid Screen Non reactive Fingerstick Blood Sugar Results: 146 Review of Systems - Review of Systems Review of Systems: see HPI Critical Care Progress Note - Ventilator Checklist Head of Bed 30 Degrees: Yes Daily Sedation Vacation: Yes Daily Assessment of Readiness to Wean: Yes Daily Spontaneous Breathing Trial: Yes PUD Prophalyxis: Yes DVT Prophylaxis: Yes Oral Care with Chlorhexidine Gluconate {CHG}: Yes - Vent Settings MODE:: PRVC TIDAL VOLUME:: 550 RESP RATE:: 14 FIO2:: 60 PEEP:: 5 Assessment/Plan - Assessment and Plan (Free Text) Plan: 51 yo M w PMHx of HTN, Crohn's, and etoh dependency was admitted for seizures, etoh withdrawal, and is currently in the ICU for hypercapnia 1) Acute respiratory failure with hypercapnia, aspiration pneumonia -Hypercapnia improved yesterday following intubation w pCO2 45, followed by pCO2 of 52 this AM -Will request surgical intervention and placement of trache and PEG --Vent: Rate 14, TVol 550, PEEP 5, FiO2 60% -Teflaro d/c'ed as per ID --Zosyn started as per ID -Albuterol 0.083% 2.5mg INH RQID -begin Prednisone 60mg PO Daily -D5 1/2NS 75cc/hr -f/u Respiratory function -f/u ABGs -f/u recommendations of specialists 2) Altered mental status -Unknown etiology; not awake, minimally responsive this morning -f/u mentation 3) Congestive Cardiomyopathy -Likely etoh induced -LV Systolic Fcn severely impaired, EF of 15-20% -Severe Mitral Regurg, Moderate Tricuspid Regurg -Coreg 3.125mg Q12H -Amiodarone 200mg PO BID -f/u Vitals -f/u Cardiology recommendations 4) Hepatic encephalopathy -Rifaximin 550 mg PO BID, as per GI -Lactulose 20 gm PO Daily -f/u GI Recommendations 5) Thrombocytopenia -No signs of active bleed at this time 6) Acute Renal Failure -Improved, Stable, GFR: >60, will continue to follow labs and I/O's <Clarence-Lisa Quinones - Last Filed: 09/21/16 13:27> CCU Objective - Vital Signs / Intake & Output Vital Signs (Last 4 hours): Vital Signs Temp Pulse Resp BP Pulse Ox 09/21/16 11:53 99.6 F 65 14 119/69 100 09/21/16 10:00 70 16 106/69 100 Intake and Output (Last 8hrs): Intake & Output 09/20/16 09/21/16 09/21/16 22:59 06:59 14:59 Intake Total 1172 1250 1209 Output Total 505 400 Balance 357 281 1545 Weight 219 lb Intake: IV 600 450 409 Intake, Piggyback 212 200 200 Tube Feeding 110 450 450 Free Water Flush 250 150 150 Output: Gastric Amount 5 Stomach 5 Urine 500 400 Urethral ([place]) 500 400 Other: # Bowel Movements 1 1 - Medications Active Medications: Active Medications Generic Name Dose Route Start Last Admin Trade Name Freq PRN Reason Stop Dose Admin Acetaminophen 650 mg 09/10/16 02:44 09/15/16 01:19 Tylenol 650mg/20.3ml Solution Ud PO 650 mg Q6 PRN Administration Fever >100.4 F Albuterol Sulfate 2.5 mg 09/17/16 12:00 09/21/16 11:54 Albuterol 0.083% Inhal Madelin (2.5 Mg/3 Ml) Ud INH 2.5 mg RQID [facility] Administration Amiodarone HCl 200 mg 09/16/16 09:30 09/21/16 08:28 Cordarone PO 200 mg BID [facility] Administration Carvedilol 3.125 mg 09/14/16 11:30 09/21/16 08:28 Coreg PO 3.125 mg Q12 [facility] Administration Levetiracetam 500 mg/ Sodium 105 mls @ 210 mls/hr 09/08/16 12:45 09/21/16 08:29 Chloride IVPB 210 mls/hr Q12 [facility] Administration Propofol 100 mls @ 2.98 mls/hr 09/20/16 15:30 09/21/16 05:00 Diprivan IV 09/21/16 15:31 10 mcg/kg/min .Q24H [facility] Titration Protocol 5 MCG/KG/MIN Piperacillin Sod/Tazobactam 100 mls @ 100 mls/hr 09/20/16 16:00 09/21/16 09:31 Sod 2.25 gm/ Sodium Chloride IVPB 100 mls/hr Q6 [facility] Administration Lactulose 20 gm 09/13/16 11:25 09/21/16 08:28 Enulose PO Not Given DAILY [facility] Pantoprazole Sodium 40 mg 09/19/16 10:45 09/21/16 08:29 Protonix Inj IVP 40 mg DAILY [facility] Administration Prednisone 60 mg 09/21/16 12:00 Prednisone Tab PO DAILY [facility] Rifaximin 550 mg 09/19/16 17:00 09/21/16 08:29 Xifaxan PO 550 mg BID [facility] Administration Spironolactone 50 mg 09/14/16 11:15 09/21/16 08:27 Aldactone PO 50 mg DAILY [facility] Administration - Patient Studies Lab Studies: Lab Studies 09/21/16 09/21/16 09/21/16 Range/Units 08:30 05:45 04:58 WBC 5.0 (4.8-10.8) K/uL RBC 3.43 L (4.40-5.90) Mil/uL Hgb 10.4 L D (12.0-18.0) g/dL Hct 32.4 L (35.0-51.0) % MCV 94.4 H (80.0-94.0) fl MCH 30.3 (27.0-31.0) pg MCHC 32.1 L (33.0-37.0) g/dL RDW 14.8 H (11.5-14.5) % Plt Count 64 L D (130-400) K/uL pCO2 52 H (35-45) mm/Hg pO2 163 H (80-100) mm/Hg HCO3 28.6 H (21-28) mmol/L ABG pH 7.38 (7.35-7.45) ABG Total CO2 32.4 H (22-28) mmol/L ABG O2 Saturation 99.1 H (95-98) % ABG O2 Content 15.4 (15-23) ML/dL ABG Base Excess 4.7 H (-2.0-3.0) mmol/L ABG Hemoglobin 11.0 L (11.7-17.4) g/dL ABG Carboxyhemoglobin 0.8 (0.5-1.5) % POC ABG HHb (Measured) 0.9 (0.0-5.0) % ABG Methemoglobin 1.1 (0.0-3.0) % ABG O2 Capacity 15.5 L (16-24) mL/dL Jim Test Yes A-a O2 Difference 342.0 mm/Hg Hgb O2 Saturation 97.1 (95.0-98.0) % Vent Mode Prvc/ac Mechanical Rate 14 FiO2 80.0 % Tidal Volume 550 PEEP 5 Sodium 146 (132-148) mmol/l Potassium 3.9 (3.6-5.0) MMOL/L Chloride 108 H (98-107) mmol/L Carbon Dioxide 28 (22-30) mmol/L Anion Gap 14 (10-20) BUN 18 (9-20) mg/dl Creatinine 1.4 (0.8-1.5) mg/dL Est GFR ( Amer) > 60 Est GFR (Non-Af Amer) 53 POC Glucose (mg/dL) (65-110) mg/dL Random Glucose 137 H (75-110) mg/dL Calcium 8.1 L (8.4-10.2) mg/dL Total Bilirubin 1.3 (0.2-1.3) mg/dl AST 77 H (17-59) U/L ALT 54 (21-72) U/L Alkaline Phosphatase 189 H (38-126) U/L Ammonia 25 D (16-60) umo/L Total Protein 5.6 L (6.3-8.2) G/DL Albumin 2.1 L D (3.5-5.0) g/dL Globulin 3.5 (2.2-3.9) gm/dL Albumin/Globulin Ratio 0.6 L (1.0-2.1) HIV-1 Ab Rapid Screen Non reactive (NON REAC) 09/21/16 09/20/16 09/20/16 Range/Units 04:48 22:04 16:00 WBC (4.8-10.8) K/uL RBC (4.40-5.90) Mil/uL Hgb (12.0-18.0) g/dL Hct (35.0-51.0) % MCV (80.0-94.0) fl MCH (27.0-31.0) pg MCHC (33.0-37.0) g/dL RDW (11.5-14.5) % Plt Count (130-400) K/uL pCO2 (35-45) mm/Hg pO2 (80-100) mm/Hg HCO3 (21-28) mmol/L ABG pH (7.35-7.45) ABG Total CO2 (22-28) mmol/L ABG O2 Saturation (95-98) % ABG O2 Content (15-23) ML/dL ABG Base Excess (-2.0-3.0) mmol/L ABG Hemoglobin (11.7-17.4) g/dL ABG Carboxyhemoglobin (0.5-1.5) % POC ABG HHb (Measured) (0.0-5.0) % ABG Methemoglobin (0.0-3.0) % ABG O2 Capacity (16-24) mL/dL Jim Test A-a O2 Difference mm/Hg Hgb O2 Saturation (95.0-98.0) % Vent Mode Mechanical Rate FiO2 % Tidal Volume PEEP Sodium (132-148) mmol/l Potassium (3.6-5.0) MMOL/L Chloride (98-107) mmol/L Carbon Dioxide (22-30) mmol/L Anion Gap (10-20) BUN (9-20) mg/dl Creatinine (0.8-1.5) mg/dL Est GFR ( Amer) Est GFR (Non-Af Amer) POC Glucose (mg/dL) 127 H 135 H 114 H (65-110) mg/dL Random Glucose (75-110) mg/dL Calcium (8.4-10.2) mg/dL Total Bilirubin (0.2-1.3) mg/dl AST (17-59) U/L ALT (21-72) U/L Alkaline Phosphatase (38-126) U/L Ammonia (16-60) umo/L Total Protein (6.3-8.2) G/DL Albumin (3.5-5.0) g/dL Globulin (2.2-3.9) gm/dL Albumin/Globulin Ratio (1.0-2.1) HIV-1 Ab Rapid Screen (NON REAC) 09/20/16 Range/Units 13:45 WBC (4.8-10.8) K/uL RBC (4.40-5.90) Mil/uL Hgb (12.0-18.0) g/dL Hct (35.0-51.0) % MCV (80.0-94.0) fl MCH (27.0-31.0) pg MCHC (33.0-37.0) g/dL RDW (11.5-14.5) % Plt Count (130-400) K/uL pCO2 45 (35-45) mm/Hg pO2 59 L (80-100) mm/Hg HCO3 29.8 H (21-28) mmol/L ABG pH 7.45 (7.35-7.45) ABG Total CO2 32.7 H (22-28) mmol/L ABG O2 Saturation 94.5 L (95-98) % ABG O2 Content 15.4 (15-23) ML/dL ABG Base Excess 6.4 H (-2.0-3.0) mmol/L ABG Hemoglobin 11.9 (11.7-17.4) g/dL ABG Carboxyhemoglobin 1.6 H (0.5-1.5) % POC ABG HHb (Measured) 5.3 H (0.0-5.0) % ABG Methemoglobin 1.4 (0.0-3.0) % ABG O2 Capacity 16.3 (16-24) mL/dL Jim Test Yes A-a O2 Difference 313.0 mm/Hg Hgb O2 Saturation 91.7 L (95.0-98.0) % Vent Mode /prvca/c Mechanical Rate 14 FiO2 60.0 % Tidal Volume 550 PEEP 5 Sodium (132-148) mmol/l Potassium (3.6-5.0) MMOL/L Chloride (98-107) mmol/L Carbon Dioxide (22-30) mmol/L Anion Gap (10-20) BUN (9-20) mg/dl Creatinine (0.8-1.5) mg/dL Est GFR ( Amer) Est GFR (Non-Af Amer) POC Glucose (mg/dL) (65-110) mg/dL Random Glucose (75-110) mg/dL Calcium (8.4-10.2) mg/dL Total Bilirubin (0.2-1.3) mg/dl AST (17-59) U/L ALT (21-72) U/L Alkaline Phosphatase (38-126) U/L Ammonia (16-60) umo/L Total Protein (6.3-8.2) G/DL Albumin (3.5-5.0) g/dL Globulin (2.2-3.9) gm/dL Albumin/Globulin Ratio (1.0-2.1) HIV-1 Ab Rapid Screen (NON REAC) Laboratory Results - last 24 hr 09/20/16 09/20/16 09/20/16 13:45 16:00 22:04 WBC RBC Hgb Hct MCV MCH MCHC RDW Plt Count pCO2 45 pO2 59 L HCO3 29.8 H ABG pH 7.45 ABG Total CO2 32.7 H ABG O2 Saturation 94.5 L ABG O2 Content 15.4 ABG Base Excess 6.4 H ABG Hemoglobin 11.9 ABG Carboxyhemoglobin 1.6 H POC ABG HHb (Measured) 5.3 H ABG Methemoglobin 1.4 ABG O2 Capacity 16.3 Jim Test Yes A-a O2 Difference 313.0 Hgb O2 Saturation 91.7 L Vent Mode /prvca/c Mechanical Rate 14 FiO2 60.0 Tidal Volume 550 PEEP 5 Sodium Potassium Chloride Carbon Dioxide Anion Gap BUN Creatinine Est GFR ( Amer) Est GFR (Non-Af Amer) POC Glucose (mg/dL) 114 H 135 H Random Glucose Calcium Total Bilirubin AST ALT Alkaline Phosphatase Ammonia Total Protein Albumin Globulin Albumin/Globulin Ratio HIV-1 Ab Rapid Screen 09/21/16 09/21/16 09/21/16 04:48 04:58 05:45 WBC RBC Hgb Hct MCV MCH MCHC RDW Plt Count pCO2 52 H pO2 163 H HCO3 28.6 H ABG pH 7.38 ABG Total CO2 32.4 H ABG O2 Saturation 99.1 H ABG O2 Content 15.4 ABG Base Excess 4.7 H ABG Hemoglobin 11.0 L ABG Carboxyhemoglobin 0.8 POC ABG HHb (Measured) 0.9 ABG Methemoglobin 1.1 ABG O2 Capacity 15.5 L Jim Test Yes A-a O2 Difference 342.0 Hgb O2 Saturation 97.1 Vent Mode Prvc/ac Mechanical Rate 14 FiO2 80.0 Tidal Volume 550 PEEP 5 Sodium 146 Potassium 3.9 Chloride 108 H Carbon Dioxide 28 Anion Gap 14 BUN 18 Creatinine 1.4 Est GFR ( Amer) > 60 Est GFR (Non-Af Amer) 53 POC Glucose (mg/dL) 127 H Random Glucose 137 H Calcium 8.1 L Total Bilirubin 1.3 AST 77 H ALT 54 Alkaline Phosphatase 189 H Ammonia Total Protein 5.6 L Albumin 2.1 L D Globulin 3.5 Albumin/Globulin Ratio 0.6 L HIV-1 Ab Rapid Screen Non reactive 09/21/16 08:30 WBC 5.0 RBC 3.43 L Hgb 10.4 L D Hct 32.4 L MCV 94.4 H MCH 30.3 MCHC 32.1 L RDW 14.8 H Plt Count 64 L D pCO2 pO2 HCO3 ABG pH ABG Total CO2 ABG O2 Saturation ABG O2 Content ABG Base Excess ABG Hemoglobin ABG Carboxyhemoglobin POC ABG HHb (Measured) ABG Methemoglobin ABG O2 Capacity Jim Test A-a O2 Difference Hgb O2 Saturation Vent Mode Mechanical Rate FiO2 Tidal Volume PEEP Sodium Potassium Chloride Carbon Dioxide Anion Gap BUN Creatinine Est GFR ( Amer) Est GFR (Non-Af Amer) POC Glucose (mg/dL) Random Glucose Calcium Total Bilirubin AST ALT Alkaline Phosphatase Ammonia 25 D Total Protein Albumin Globulin Albumin/Globulin Ratio HIV-1 Ab Rapid Screen Attending/Attestation - Attestation I have personally seen and examined this patient.: Yes I have fully participated in the care of the patient.: Yes I have reviewed all pertinent clinical information: Yes Notes (Text): 09/21/16 13:25 patient seen and examined this morning. Reintubated yesterday for acute hypoxic respiratory failure, able to decrease fio2 to 50% ths morning. Spoke to his , agree for peg and trach. Best course of action given multiple re-intubations during this hospitalization sart patien on steroids. Bilateral wheezing on expiration, decreased breathing sounds.
--- NOTE | 2016-09-21 14:18 | CP.PCM.CON ---
<Marco Antonio Mccollum - Last Filed: 09/21/16 14:43> History of Present Illness - History of Present Illness History of Present Illness: Gen Surgery: Dr Vergara Re: Tracheostomy Pt is a 51M admitted on 08/30/16. Pt was brought to [facility] because he had a tonic- clonic seizure at home, witnessed by his , presumably 2/2 alcohol withdrawal. Pt has known EtOH abuse ~6-8 beers every other day per EMR. Pt had not been drinking for several days due to respiratory illness. Pt suffered tongue bite/contusion during seizure and was found to have RUL and RLL opacities which likely represented aspiration pneumonia. Pt was admitted to telemetry and on 09/05 developed cardiac arrhythmia again requiring intubation due to hypercapnic failure. Further work-up during his stay found pt has dilated cardiomyopathy and an EF of 10-20%. Since then, pt has been extubated and re-intubated several times, most recently yesterday 09/20/16. Dx of admission: 1. Acute respiratory failure 2/2 aspiration pneumonia 2. AMS - unknown etiology 3. Congestive dilated cardiomyopathy 4. Hepatic encephalopathy 5. thombocytopenia 6. acute renal failure PMH: HTN, DM PSHx: Bowel resection 1989 unknown reason, appendectomy 1983 Social: Ex-smoker (duration unknown), EtOH abuse Review of Systems - Review of Systems Systems not reviewed;Unavailable: Intubated Past Patient History - Past Medical History & Family History Past Medical History?: Yes - Past Social History Smoking Status: Former Smoker Alcohol: Other (heavy) Drugs: Cocaine (in the past) - CARDIAC Hx Cardiac Disorders: Yes Hx Hypertension: Yes - PULMONARY Hx Respiratory Disorders: No - NEUROLOGICAL Hx Neurological Disorder: Yes Hx Seizures: Yes - HEENT Hx HEENT Problems: No - RENAL Hx Chronic Kidney Disease: No - ENDOCRINE/METABOLIC Hx Diabetes Mellitus Type 2: Yes - HEMATOLOGICAL/ONCOLOGICAL Hx Blood Disorders: No Hx Human Immunodeficiency Virus (HIV): No - INTEGUMENTARY Hx Dermatological Problems: No - MUSCULOSKELETAL/RHEUMATOLOGICAL Hx Musculoskeletal Disorders: Yes Hx Falls: Yes (fell last night on the back from the couch) - GASTROINTESTINAL Hx Gastrointestinal Disorders: Yes Hx Bowel Surgery: Yes Hx Crohn's Disease: Yes Other/Comment: LEFT ABDOMINAL HERNIA - GENITOURINARY/GYNECOLOGICAL Hx Genitourinary Disorders: No - PSYCHIATRIC Hx Psychophysiologic Disorder: Yes Hx Substance Use: Yes (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.) - SURGICAL HISTORY Hx Surgeries: Yes Hx Appendectomy: Yes Hx Herniorrhaphy: Yes (ventral?) Other/Comment: BOWEL RESECTION 1989, APPENDECTOMY 1983 - ANESTHESIA Hx Anesthesia: Yes Hx Anesthesia Reactions: No Hx Malignant Hyperthermia: No Has any member of the family had a problem w/ anesthesia?: No Meds Allergies/Adverse Reactions: Allergies Allergy/AdvReac Type Severity Reaction Status Date / Time ibuprofen [From Motrin] AdvReac NAUSEA Verified 08/30/16 02:45 - Medications Medications: Current Medications Acetaminophen (Tylenol 650mg/20.3ml Solution Ud) 650 mg PO Q6 PRN PRN Reason: Fever >100.4 F Last Admin: 09/15/16 01:19 Dose: 650 mg Albuterol Sulfate (Albuterol 0.083% Inhal Madelin (2.5 Mg/3 Ml) Ud) 2.[address] [facility] Last Admin: 09/21/16 11:54 Dose: 2.5 mg Amiodarone HCl (Cordarone) [address] [facility] Last Admin: 09/21/16 08:28 Dose: 200 mg Carvedilol (Coreg) 3.[address] [facility] Last Admin: 09/21/16 08:28 Dose: 3.125 mg Levetiracetam 500 mg/ Sodium (Chloride) 105 mls @ 210 mls/hr IVPB Q12 [facility] Last Admin: 09/21/16 08:29 Dose: 210 mls/hr Propofol (Diprivan) 100 mls @ 2.98 mls/hr IV .Q24H [facility]; 5 MCG/KG/MIN PRN Reason: Protocol Stop: 09/21/16 15:31 Last Titration: 09/21/16 05:00 Dose: 10 mcg/kg/min Piperacillin Sod/Tazobactam (Sod 2.25 gm/ Sodium Chloride) 100 mls @ 100 mls/ hr IVPB Q6 [facility] Last Admin: 09/21/16 09:31 Dose: 100 mls/hr Lactulose (Enulose) [address] [facility] Last Admin: 09/21/16 08:28 Dose: Not Given Pantoprazole Sodium (Protonix Inj) [address] [facility] Last Admin: 09/21/16 08:29 Dose: 40 mg Prednisone (Prednisone Tab) [address] [facility] Rifaximin (Xifaxan) [address] [facility] Last Admin: 09/21/16 08:29 Dose: 550 mg Spironolactone (Aldactone) [address] [facility] Last Admin: 09/21/16 08:27 Dose: 50 mg Physical Exam - Constitutional Appears: Chronically Ill - Head Exam Head Exam: NORMOCEPHALIC - Eye Exam Eye Exam: absent: Scleral icterus - ENT Exam ENT Exam: Mucous Membranes Dry, Mucous Membranes Moist - Respiratory Exam Additional comments: Pt on ventilator: FiO2 50%, PEEP 5 - GI/Abdominal Exam GI & Abdominal Exam: Hernia (large ventral hernia), Soft. absent: Distended, Firm, Tenderness Additional comments: midline incision 2/2 laparotomy - Extremities Exam Extremities exam: Positive for: pedal edema - Skin Skin Exam: Normal Color Results - Vital Signs Recent Vital Signs: Last Vital Signs Temp 99.6 F 09/21/16 11:53 Pulse 65 09/21/16 11:53 Resp 14 09/21/16 11:53 BP 119/69 09/21/16 11:53 Pulse Ox 100 09/21/16 11:53 - Labs Result Diagrams: 09/21/16 08:30 09/21/16 05:45 Labs: Laboratory Results - last 24 hr 09/20/16 09/20/16 09/20/16 13:45 16:00 22:04 WBC RBC Hgb Hct MCV MCH MCHC RDW Plt Count pCO2 45 pO2 59 L HCO3 29.8 H ABG pH 7.45 ABG Total CO2 32.7 H ABG O2 Saturation 94.5 L ABG O2 Content 15.4 ABG Base Excess 6.4 H ABG Hemoglobin 11.9 ABG Carboxyhemoglobin 1.6 H POC ABG HHb (Measured) 5.3 H ABG Methemoglobin 1.4 ABG O2 Capacity 16.3 Jim Test Yes A-a O2 Difference 313.0 Hgb O2 Saturation 91.7 L Vent Mode /prvca/c Mechanical Rate 14 FiO2 60.0 Tidal Volume 550 PEEP 5 Sodium Potassium Chloride Carbon Dioxide Anion Gap BUN Creatinine Est GFR ( Amer) Est GFR (Non-Af Amer) POC Glucose (mg/dL) 114 H 135 H Random Glucose Calcium Total Bilirubin AST ALT Alkaline Phosphatase Ammonia Total Protein Albumin Globulin Albumin/Globulin Ratio HIV-1 Ab Rapid Screen 09/21/16 09/21/16 09/21/16 04:48 04:58 05:45 WBC RBC Hgb Hct MCV MCH MCHC RDW Plt Count pCO2 52 H pO2 163 H HCO3 28.6 H ABG pH 7.38 ABG Total CO2 32.4 H ABG O2 Saturation 99.1 H ABG O2 Content 15.4 ABG Base Excess 4.7 H ABG Hemoglobin 11.0 L ABG Carboxyhemoglobin 0.8 POC ABG HHb (Measured) 0.9 ABG Methemoglobin 1.1 ABG O2 Capacity 15.5 L Jim Test Yes A-a O2 Difference 342.0 Hgb O2 Saturation 97.1 Vent Mode Prvc/ac Mechanical Rate 14 FiO2 80.0 Tidal Volume 550 PEEP 5 Sodium 146 Potassium 3.9 Chloride 108 H Carbon Dioxide 28 Anion Gap 14 BUN 18 Creatinine 1.4 Est GFR ( Amer) > 60 Est GFR (Non-Af Amer) 53 POC Glucose (mg/dL) 127 H Random Glucose 137 H Calcium 8.1 L Total Bilirubin 1.3 AST 77 H ALT 54 Alkaline Phosphatase 189 H Ammonia Total Protein 5.6 L Albumin 2.1 L D Globulin 3.5 Albumin/Globulin Ratio 0.6 L HIV-1 Ab Rapid Screen Non reactive 09/21/16 08:30 WBC 5.0 RBC 3.43 L Hgb 10.4 L D Hct 32.4 L MCV 94.4 H MCH 30.3 MCHC 32.1 L RDW 14.8 H Plt Count 64 L D pCO2 pO2 HCO3 ABG pH ABG Total CO2 ABG O2 Saturation ABG O2 Content ABG Base Excess ABG Hemoglobin ABG Carboxyhemoglobin POC ABG HHb (Measured) ABG Methemoglobin ABG O2 Capacity Jim Test A-a O2 Difference Hgb O2 Saturation Vent Mode Mechanical Rate FiO2 Tidal Volume PEEP Sodium Potassium Chloride Carbon Dioxide Anion Gap BUN Creatinine Est GFR ( Amer) Est GFR (Non-Af Amer) POC Glucose (mg/dL) Random Glucose Calcium Total Bilirubin AST ALT Alkaline Phosphatase Ammonia 25 D Total Protein Albumin Globulin Albumin/Globulin Ratio HIV-1 Ab Rapid Screen Assessment & Plan - Assessment and Plan (Free Text) Assessment: 51M with respiratory failure 2/2 aspiration pneumonia Plan: pt will need optimization prior to any planned procedure thrombocytopenia and elevated INR must be addressed cardiac clearance needed for general anesthesia need FiO2 to 40% further recommendations to follow per Dr Ursula wade d/w Dr Ursula Mccollum, PGY2 - Date & Time Date: 09/21/16 Time: 14:51 <Roosevelt Vergara - Last Filed: 09/22/16 10:48> History of Present Illness - History of Present Illness History of Present Illness: Patient was seen and examined at the bedside. Agree with resident's note above. Meds - Medications Medications: Current Medications Acetaminophen (Tylenol 650mg/20.3ml Solution Ud) 650 mg PO Q6 PRN PRN Reason: Fever >100.4 F Last Admin: 09/15/16 01:19 Dose: 650 mg Albuterol Sulfate (Albuterol 0.083% Inhal Madelin (2.5 Mg/3 Ml) Ud) 2.[address] [facility] Last Admin: 09/22/16 08:26 Dose: 2.5 mg Amiodarone HCl (Cordarone) [address] [facility] Last Admin: 09/22/16 08:33 Dose: 200 mg Carvedilol (Coreg) 3.[address] [facility] Last Admin: 09/22/16 08:33 Dose: 3.125 mg Levetiracetam 500 mg/ Sodium (Chloride) 105 mls @ 210 mls/hr IVPB Q12 [facility] Last Admin: 09/22/16 08:34 Dose: 210 mls/hr Piperacillin Sod/Tazobactam (Sod 2.25 gm/ Sodium Chloride) 100 mls @ 100 mls/ hr IVPB Q6 [facility] Last Admin: 09/22/16 09:07 Dose: 100 mls/hr Methylprednisolone 60 mg/ (Sodium Chloride) 50.96 mls @ 100 mls/hr IVPB Q8 [facility] Last Admin: 09/22/16 08:34 Dose: 100 mls/hr Propofol (Diprivan) 100 mls @ 14.901 mls/hr IV .Q6H43M [facility]; 25 MCG/KG/MIN PRN Reason: Protocol Stop: 09/22/16 23:46 Last Admin: 09/22/16 05:00 Dose: 8.94 mls/hr Lactulose (Enulose) [address] [facility] Last Admin: 09/22/16 08:33 Dose: Not Given Pantoprazole Sodium (Protonix Inj) [address] [facility] Last Admin: 09/22/16 08:34 Dose: 40 mg Rifaximin (Xifaxan) [address] [facility] Last Admin: 09/22/16 08:34 Dose: 550 mg Spironolactone (Aldactone) [address] [facility] Last Admin: 09/22/16 08:33 Dose: 50 mg Results - Vital Signs Recent Vital Signs: Last Vital Signs Temp 97.7 F 09/22/16 08:00 Pulse 64 09/22/16 08:33 Resp 20 09/22/16 08:00 BP 116/74 09/22/16 08:33 Pulse Ox 94 L 09/22/16 08:00 - Labs Result Diagrams: 09/22/16 04:30 09/22/16 04:30 Labs: Laboratory Results - last 24 hr 09/22/16 09/22/16 04:30 05:06 WBC 4.6 L RBC 3.83 L Hgb 11.7 L Hct 35.6 MCV 92.9 MCH 30.4 MCHC 32.8 L RDW 14.7 H Plt Count 60 L MPV 11.6 Neut % (Auto) 92.4 H Lymph % (Auto) 5.6 L [place] % (Auto) 1.2 Eos % (Auto) 0.3 Baso % (Auto) 0.5 Neut # 4.3 Lymph # 0.3 L [place] # 0.1 Eos # 0.0 Baso # 0.0 Neutrophils % (Manual) 93 H Lymphocytes % (Manual) 6 L Monocytes % (Manual) 1 Platelet Estimate Markedly decreased L Anisocytosis (manual) Slight PT 14.6 H INR 1.40 H APTT 27.3 pCO2 43 pO2 74 L HCO3 27.8 ABG pH 7.43 ABG Total CO2 29.8 H ABG O2 Saturation 96.7 ABG O2 Content 15.8 ABG Base Excess 3.7 H ABG Hemoglobin 11.9 ABG Carboxyhemoglobin 1.6 H POC ABG HHb (Measured) 3.2 ABG Methemoglobin 0.9 ABG O2 Capacity 16.3 Jim Test Yes A-a O2 Difference 229.0 Hgb O2 Saturation 94.4 L Vent Mode Prvc/ac Mechanical Rate 14 FiO2 50.0 Tidal Volume 550 PEEP 5 Sodium 143 Potassium 4.7 Chloride 106 Carbon Dioxide 24 Anion Gap 18 BUN 22 H Creatinine 1.2 Est GFR ( Amer) > 60 Est GFR (Non-Af Amer) > 60 Random Glucose 219 H Calcium 8.2 L Total Bilirubin 1.7 H AST 71 H ALT 60 Alkaline Phosphatase 250 H D Total Protein 6.5 Albumin 2.5 L Globulin 4.0 H Albumin/Globulin Ratio 0.6 L - Imaging and Cardiology Chest x-ray Status: Image reviewed by me, Report reviewed by me Assessment & Plan - Assessment and Plan (Free Text) Assessment: 51 y.o. male with ventilator dependent respiratory failure Plan: - Will plan for Tracheostomy on 09/26/16 - Patient need cardiac and medical clearance prior to surgery - Will need platelet transfusion and FFP prior to surgery - Continue ventilator support - Continue antibiotics as per ID - Continue care as per ICU and medical teams - Will follow
[2016-09-21] MEDS: methylPREDNISolone 60 MG in Sodium Chloride 0.9% 50 ML IVPB SCH (15:59)
--- NOTE | 2016-09-21 23:22 | PN ---
DATE: 09/21/2016 The patient is seen today, 09/21/2016. He is intubated in intensive care unit. The blood pressure is 114/59, temperature 98.7, respiratory rate 16, and pulse is 67. NECK: No JVD, no carotid bruit, no lymph node, no thyromegaly. CHEST AND LUNGS: Bilateral symmetrical expansion. Few basal rales bilaterally. CARDIOVASCULAR SYSTEM: PMI not localized. S1, S2. No additional sounds. ABDOMEN: Normoactive bowel sounds, no tenderness, no organomegaly. EXTREMITIES: No cyanosis, no clubbing, no edema. CENTRAL NERVOUS SYSTEM: The patient is intubated and sedated on ventilator. ASSESSMENT: 1. Respiratory failure, status post alcohol withdrawal seizures. 2. Dilated cardiomyopathy with congestive heart failure, both systolic and diastolic, acute. PLAN: The patient will have post-gastric tube and a tracheostomy. 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 Will continue current medications and follow up recommendation s of consultants. Canelo Ellison MD cc: [phone] TT: 09/21/2016 23:21:36 Confirmation # [id number] Dictation # [id number] berta
[2016-09-22] MEDS: methylPREDNISolone 60 MG in Sodium Chloride 0.9% 50 ML IVPB SCH ×3 (00:07→16:10)
--- NOTE | 2016-09-22 00:20 | CP.PCM.PN ---
Subjective - Date & Time of Evaluation Date of Evaluation: 09/21/16 Time of Evaluation: 13:00 - Subjective Subjective: SEEN ON RENAL F/U ALL PREVIOUS EMR REVIEWED RENAL FUNCTION WNL RE INTUBATION NA WENT UP 146 2/2 ZOSYN Objective - Vital Signs/Intake and Output Vital Signs (last 24 hours): Temp Pulse Resp BP Pulse Ox 99.2 F 73 21 113/71 97 09/22/16 00:00 09/22/16 00:00 09/22/16 00:00 09/22/16 00:00 09/22/16 00:00 Intake and Output: 09/21/16 09/22/16 18:59 06:59 Intake Total 2249 727 Output Total 500 0 Balance 1749 727 - Medications Medications: Current Medications Acetaminophen (Tylenol 650mg/20.3ml Solution Ud) 650 mg PO Q6 PRN PRN Reason: Fever >100.4 F Last Admin: 09/15/16 01:19 Dose: 650 mg Albuterol Sulfate (Albuterol 0.083% Inhal Madelin (2.5 Mg/3 Ml) Ud) 2.5 mg INH RQID [facility] Last Admin: 09/21/16 19:50 Dose: 2.5 mg Amiodarone HCl (Cordarone) 200 mg PO BID [facility] Last Admin: 09/21/16 15:59 Dose: 200 mg Carvedilol (Coreg) 3.125 mg PO Q12 [facility] Last Admin: 09/21/16 20:13 Dose: 3.125 mg Levetiracetam 500 mg/ Sodium (Chloride) 105 mls @ 210 mls/hr IVPB Q12 [facility] Last Admin: 09/21/16 20:13 Dose: 210 mls/hr Piperacillin Sod/Tazobactam (Sod 2.25 gm/ Sodium Chloride) 100 mls @ 100 mls/ hr IVPB Q6 [facility] Last Admin: 09/21/16 21:01 Dose: 100 mls/hr Methylprednisolone 60 mg/ (Sodium Chloride) 50.96 mls @ 100 mls/hr IVPB Q8 [facility] Last Admin: 09/22/16 00:07 Dose: 100 mls/hr Propofol (Diprivan) 100 mls @ 14.901 mls/hr IV .Q6H43M [facility]; 25 MCG/KG/MIN PRN Reason: Protocol Stop: 09/22/16 23:46 Lactulose (Enulose) 20 gm PO DAILY [facility] Last Admin: 09/21/16 08:28 Dose: Not Given Pantoprazole Sodium (Protonix Inj) 40 mg IVP DAILY [facility] Last Admin: 09/21/16 08:29 Dose: 40 mg Rifaximin (Xifaxan) 550 mg PO BID [facility] Last Admin: 09/21/16 15:59 Dose: 550 mg Spironolactone (Aldactone) 50 mg PO DAILY [facility] Last Admin: 09/21/16 08:27 Dose: 50 mg - Labs Labs: 09/21/16 08:30 09/21/16 05:45 PT 13.9 SECONDS (9.6-11.2) H 09/15/16 12:05 INR 1.34 (0.92-1.08) H 09/15/16 12:05 APTT 28.7 SECONDS (23.3-32.5) 09/15/16 12:05 Assessment and Plan - Assessment and Plan (Free Text) Assessment: NONA .. RENAL FUNCTION BACK TO WNL HYPERNATREMIA .. 2/2 ZOSYN ADMINISTRATION .. WELL NS IN IV MEDS P : SUGGEST REPLACE ZOSYN WITH OTHER ANTIBIOTIC DISSOLVE ALL IV MEDS IN D5W
[2016-09-22 05:30] LABS: ABG ALLEN TEST YES; ABG MECHANICAL RATE 14; ARTERIAL BLOOD GAS HCO3 27.8 mmol/L (21-28); ARTERIAL BLOOD GAS MODE PRVC/AC; ARTERIAL BLOOD GAS O2 CAPACITY 16.3 mL/dL (16-24); ARTERIAL BLOOD GAS O2 CONTENT 15.8 ML/dL (15-23); ARTERIAL BLOOD GAS PH 7.43 (7.35-7.45); ARTERIAL BLOOD GAS PO2 74 mm/Hg (80-100); ARTERIAL BLOOD HGB O2 SAT 94.4 % (95.0-98.0); ATERIAL BLOOD GAS PEEP 5; CARBOXYHEMOGLOBIN 1.6 % (0.5-1.5); HHB 3.2 % (0.0-5.0); METHEMOGLOBIN 0.9 % (0.0-3.0)
[2016-09-22 05:39] LABS: CHLORIDE 106 mmol/L (98-107); POTASSIUM 4.7 MMOL/L (3.6-5.0); SODIUM 143 mmol/l (132-148)
[2016-09-22 05:41] LABS: GFR AFRICAN-AMERICAN > 60
[2016-09-22 05:42] LABS: ALB/GLOB RATIO 0.6 (1.0-2.1); ALKALINE PHOSPHATASE 250 U/L (38-126); ALT/SGPT 60 U/L (21-72); AST/SGOT 71 U/L (17-59); BILIRUBIN,TOTAL 1.7 mg/dl (0.2-1.3); BLOOD UREA NITROGEN 22 mg/dl (9-20); CALCIUM 8.2 mg/dL (8.4-10.2); CARBON DIOXIDE 24 mmol/L (22-30); GLUCOSE,RANDOM 219 mg/dL (75-110); TOTAL PROTEIN 6.5 G/DL (6.3-8.2)
[2016-09-22 05:43] LABS: BASO % 0.5 % (0.0-2.0); EOS % 0.3 % (0.0-4.0); HEMATOCRIT 35.6 % (35.0-51.0); LYMPH # 0.3 K/uL (1.0-4.3); LYMPH % 5.6 % (20.0-40.0); MEAN CELL VOLUME 92.9 fl (80.0-94.0); MEAN CORPUSCULAR HEMOGLOBIN 30.4 pg (27.0-31.0); MEAN CORPUSCULAR HGB CONC 32.8 g/dL (33.0-37.0); MEAN PLATELET VOLUME 11.6 fl (7.2-11.7); MONO # 0.1 K/uL (0.0-0.8); MONO % 1.2 % (0.0-10.0); NEUT # 4.3 K/uL (1.8-7.0); NEUT % 92.4 % (50.0-75.0); NRBC % 0.2 % (0.0-0.0); PLATELET COUNT 60 K/uL (130-400); RED CELL DISTRIBUTION WIDTH 14.7 % (11.5-14.5); WHITE BLOOD COUNT 4.6 K/uL (4.8-10.8)
[2016-09-22 05:47] LABS: PARTIAL THROMBOPLASTIN TIME 27.3 SECONDS (23.3-32.5)
--- NOTE | 2016-09-22 07:06 | CP.PCM.PN ---
Subjective - Date & Time of Evaluation Date of Evaluation: 09/22/16 Time of Evaluation: 06:40 - Subjective Subjective: GENERAL SURGERY PROGRESS NOTE FOR DR. VERGARA 51 yo male patient seen in the ICU this morning. Pt seen sedated and intubated in bed at time of visit. Unresponsive to questioning at this time. Nursing reports an uneventful overnight course. Objective - Vital Signs/Intake and Output Vital Signs (last 24 hours): Temp Pulse Resp BP Pulse Ox 98.6 F 70 20 128/87 95 09/22/16 04:00 09/22/16 06:00 09/22/16 06:00 09/22/16 06:00 09/22/16 06:00 Intake and Output: 09/22/16 09/22/16 06:59 18:59 Intake Total 877 Output Total 700 Balance 177 - Medications Medications: Current Medications Acetaminophen (Tylenol 650mg/20.3ml Solution Ud) 650 mg PO Q6 PRN PRN Reason: Fever >100.4 F Last Admin: 09/15/16 01:19 Dose: 650 mg Albuterol Sulfate (Albuterol 0.083% Inhal Madelin (2.5 Mg/3 Ml) Ud) 2.5 mg INH RQID [facility] Last Admin: 09/21/16 19:50 Dose: 2.5 mg Amiodarone HCl (Cordarone) 200 mg PO BID [facility] Last Admin: 09/21/16 15:59 Dose: 200 mg Carvedilol (Coreg) 3.125 mg PO Q12 [facility] Last Admin: 09/21/16 20:13 Dose: 3.125 mg Levetiracetam 500 mg/ Sodium (Chloride) 105 mls @ 210 mls/hr IVPB Q12 [facility] Last Admin: 09/21/16 20:13 Dose: 210 mls/hr Piperacillin Sod/Tazobactam (Sod 2.25 gm/ Sodium Chloride) 100 mls @ 100 mls/ hr IVPB Q6 [facility] Last Admin: 09/22/16 03:38 Dose: 100 mls/hr Methylprednisolone 60 mg/ (Sodium Chloride) 50.96 mls @ 100 mls/hr IVPB Q8 [facility] Last Admin: 09/22/16 00:07 Dose: 100 mls/hr Propofol (Diprivan) 100 mls @ 14.901 mls/hr IV .Q6H43M [facility]; 25 MCG/KG/MIN PRN Reason: Protocol Stop: 09/22/16 23:46 Last Admin: 09/22/16 05:00 Dose: 8.94 mls/hr Lactulose (Enulose) 20 gm PO DAILY [facility] Last Admin: 09/21/16 08:28 Dose: Not Given Pantoprazole Sodium (Protonix Inj) 40 mg IVP DAILY [facility] Last Admin: 09/21/16 08:29 Dose: 40 mg Rifaximin (Xifaxan) 550 mg PO BID [facility] Last Admin: 09/21/16 15:59 Dose: 550 mg Spironolactone (Aldactone) 50 mg PO DAILY [facility] Last Admin: 09/21/16 08:27 Dose: 50 mg - Labs Labs: 09/22/16 04:30 09/22/16 04:30 PT 14.6 SECONDS (9.6-11.2) H 09/22/16 04:30 INR 1.40 (0.92-1.08) H 09/22/16 04:30 APTT 27.3 SECONDS (23.3-32.5) 09/22/16 04:30 - Constitutional Appears: No Acute Distress, Chronically Ill - Head Exam Head Exam: NORMAL INSPECTION, NORMOCEPHALIC - Respiratory Exam Additional comments: Pt on ventilator: FiO2 49% - Cardiovascular Exam Cardiovascular Exam: REGULAR RHYTHM - GI/Abdominal Exam GI & Abdominal Exam: Soft, Hernia (large ventral hernia). absent: Distended, Firm, Tenderness (midline incision 2/2 laparotomy) - Extremities Exam Extremities Exam: Pedal Edema - Neurological Exam Neurological Exam: absent: Alert, Awake - Skin Skin Exam: Normal Color, Warm Assessment and Plan - Assessment and Plan (Free Text) Assessment: 51 male with respiratory failure secondary to aspiration pneumonia Plan: - Pt seen and evaluated at the bedside - VSS, pancytopenic: pt will need optimization of thrombocytopenia & INR prior to tracheotomy - Cardiac clx needed for general anesthesia - FiO2 will need to be reduced to 40% for procedure - d/w Dr. Vergara -Dr. Dick, PGY-1
[2016-09-22] MEDS: Albuterol 0.083% Inhal Sol (2.5 mg/3 mL) UD INH SCH ×4 (08:26→19:19)
[2016-09-22] MEDS: levETIRAcetam 500 MG in Sodium Chloride 0.9% 100 ML IVPB SCH ×2 (08:34→20:11)
--- NOTE | 2016-09-22 08:49 | CP.CCUPN ---
<Merrill Leyva T - Last Filed: 09/22/16 08:49> CCU Subjective - Physician Review Subjective (Free Text): Pt seen and examined at bedside in the ICU. Pt is currently intubated and unresponsive to voice, but does withdraw extremities x4 to pain. Pt is unable to answer questions and full ROS cannot be obtained. No known overnight complications or problems. CCU Objective - Vital Signs / Intake & Output Vital Signs (Last 4 hours): Vital Signs Temp Pulse Resp BP Pulse Ox 09/22/16 08:33 64 116/74 09/22/16 08:00 97.7 F 65 20 118/75 94 L 09/22/16 06:00 70 20 128/87 95 09/22/16 05:00 68 15 116/73 97 Intake and Output (Last 8hrs): Intake & Output 09/21/16 09/22/16 09/22/16 22:59 06:59 14:59 Intake Total 1201 400 Output Total 500 700 Balance 701 -300 Weight 203 lb Intake: IV 26 Intake, Piggyback 350 250 Tube Feeding 525 150 Free Water Flush 300 Output: Gastric Amount 0 Stomach 0 Urine 500 700 Urethral (Cl[place]ton) 500 700 Other: # Bowel Movements 2 1 - Physical Exam Head: Positive for: Atraumatic, Normocephalic Pupils: Positive for: PERRL. Negative for: Sluggish, Non-Reactive Extroacular Muscles: Positive for: EOMI Conjunctiva: Positive for: Normal. Negative for: Injected, Icteric Mouth: Positive for: Dry Pharnyx: Positive for: Other (intubated) Nose (External): Negative for: Abrasion Nose (Internal): Positive for: Normal Inspection Neck: Positive for: Trachea Midline. Negative for: JVD, Lymphadenopathy, Bruit Respiratory/Chest: Positive for: Decreased Breath Sounds, Rhonchi (minimally rhonchi throughout). Negative for: Respiratory Distress, Wheezes Cardiovascular: Positive for: Regular Rate and Rhythm, Normal S1, S2, Peripheal Pulses Present. Negative for: Murmurs Abdomen: Positive for: Normal Bowel Sounds. Negative for: Tenderness, Distention, Peritoneal Signs, Guarding Upper Extremity: Positive for: Normal Inspection, NORMAL PULSES. Negative for: Cyanosis, Edema Lower Extremity: Positive for: Normal Inspection, NORMAL PULSES. Negative for: Edema, CALF TENDERNESS Neurological: Positive for: Other (intubated, unresonsive to voice) Skin: Positive for: Warm, Dry, Normal Color. Negative for: Rashes Psychiatric: Positive for: Other (intubated, unresponsive to voice) - Medications Active Medications: Active Medications Generic Name Dose Route Start Last Admin Trade Name Freq PRN Reason Stop Dose Admin Acetaminophen 650 mg 09/10/16 02:44 09/15/16 01:19 Tylenol 650mg/20.3ml Solution Ud PO 650 mg Q6 PRN Administration Fever >100.4 F Albuterol Sulfate 2.5 mg 09/17/16 12:00 09/22/16 08:26 Albuterol 0.083% Inhal Madelin (2.5 Mg/3 Ml) Ud INH 2.5 mg RQID [facility] Administration Amiodarone HCl 200 mg 09/16/16 09:30 09/22/16 08:33 Cordarone PO 200 mg BID [facility] Administration Carvedilol 3.125 mg 09/14/16 11:30 09/22/16 08:33 Coreg PO 3.125 mg Q12 [facility] Administration Levetiracetam 500 mg/ Sodium 105 mls @ 210 mls/hr 09/08/16 12:45 09/22/16 08:34 Chloride IVPB 210 mls/hr Q12 [facility] Administration Piperacillin Sod/Tazobactam 100 mls @ 100 mls/hr 09/20/16 16:00 09/22/16 03:38 Sod 2.25 gm/ Sodium Chloride IVPB 100 mls/hr Q6 [facility] Administration Methylprednisolone 60 mg/ 50.96 mls @ 100 mls/hr 09/21/16 17:00 09/22/16 08:34 Sodium Chloride IVPB 100 mls/hr Q8 [facility] Administration Propofol 100 mls @ 14.901 mls/hr 09/21/16 23:45 09/22/16 05:00 Diprivan IV 09/22/16 23:46 8.94 mls/hr .Q6H43M [facility] Administration Protocol 25 MCG/KG/MIN Lactulose 20 gm 09/13/16 11:25 09/22/16 08:33 Enulose PO Not Given DAILY [facility] Pantoprazole Sodium 40 mg 09/19/16 10:45 09/22/16 08:34 Protonix Inj IVP 40 mg DAILY [facility] Administration Rifaximin 550 mg 09/19/16 17:00 09/22/16 08:34 Xifaxan PO 550 mg BID [facility] Administration Spironolactone 50 mg 09/14/16 11:15 09/22/16 08:33 Aldactone PO 50 mg DAILY [facility] Administration - Patient Studies Lab Studies: Lab Studies 09/22/16 09/22/16 09/21/16 Range/Units 05:06 04:30 08:30 WBC 4.6 L 5.0 (4.8-10.8) K/uL RBC 3.83 L 3.43 L (4.40-5.90) Mil/uL Hgb 11.7 L 10.4 L D (12.0-18.0) g/dL Hct 35.6 32.4 L (35.0-51.0) % MCV 92.9 94.4 H (80.0-94.0) fl MCH 30.4 30.3 (27.0-31.0) pg MCHC 32.8 L 32.1 L (33.0-37.0) g/dL RDW 14.7 H 14.8 H (11.5-14.5) % Plt Count 60 L 64 L D (130-400) K/uL MPV 11.6 (7.2-11.7) fl Neut % (Auto) 92.4 H (50.0-75.0) % Lymph % (Auto) 5.6 L (20.0-40.0) % [place] % (Auto) 1.2 (0.0-10.0) % Eos % (Auto) 0.3 (0.0-4.0) % Baso % (Auto) 0.5 (0.0-2.0) % Neut # 4.3 (1.8-7.0) K/uL Lymph # 0.3 L (1.0-4.3) K/uL [place] # 0.1 (0.0-0.8) K/uL Eos # 0.0 (0.0-0.7) K/uL Baso # 0.0 (0.0-0.2) K/uL PT 14.6 H (9.6-11.2) SECONDS INR 1.40 H (0.92-1.08) APTT 27.3 (23.3-32.5) SECONDS pCO2 43 (35-45) mm/Hg pO2 74 L (80-100) mm/Hg HCO3 27.8 (21-28) mmol/L ABG pH 7.43 (7.35-7.45) ABG Total CO2 29.8 H (22-28) mmol/L ABG O2 Saturation 96.7 (95-98) % ABG O2 Content 15.8 (15-23) ML/dL ABG Base Excess 3.7 H (-2.0-3.0) mmol/L ABG Hemoglobin 11.9 (11.7-17.4) g/dL ABG Carboxyhemoglobin 1.6 H (0.5-1.5) % POC ABG HHb (Measured) 3.2 (0.0-5.0) % ABG Methemoglobin 0.9 (0.0-3.0) % ABG O2 Capacity 16.3 (16-24) mL/dL Jim Test Yes A-a O2 Difference 229.0 mm/Hg Hgb O2 Saturation 94.4 L (95.0-98.0) % Vent Mode Prvc/ac Mechanical Rate 14 FiO2 50.0 % Tidal Volume 550 PEEP 5 Sodium 143 (132-148) mmol/l Potassium 4.7 (3.6-5.0) MMOL/L Chloride 106 (98-107) mmol/L Carbon Dioxide 24 (22-30) mmol/L Anion Gap 18 (10-20) BUN 22 H (9-20) mg/dl Creatinine 1.2 (0.8-1.5) mg/dL Est GFR ( Amer) > 60 Est GFR (Non-Af Amer) > 60 Random Glucose 219 H (75-110) mg/dL Calcium 8.2 L (8.4-10.2) mg/dL Total Bilirubin 1.7 H (0.2-1.3) mg/dl AST 71 H (17-59) U/L ALT 60 (21-72) U/L Alkaline Phosphatase 250 H D (38-126) U/L Ammonia 25 D (16-60) umo/L Total Protein 6.5 (6.3-8.2) G/DL Albumin 2.5 L (3.5-5.0) g/dL Globulin 4.0 H (2.2-3.9) gm/dL Albumin/Globulin Ratio 0.6 L (1.0-2.1) Laboratory Results - last 24 hr 09/21/16 09/22/16 09/22/16 08:30 04:30 05:06 WBC 5.0 4.6 L RBC 3.43 L 3.83 L Hgb 10.4 L D 11.7 L Hct 32.4 L 35.6 MCV 94.4 H 92.9 MCH 30.3 30.4 MCHC 32.1 L 32.8 L RDW 14.8 H 14.7 H Plt Count 64 L D 60 L MPV 11.6 Neut % (Auto) 92.4 H Lymph % (Auto) 5.6 L [place] % (Auto) 1.2 Eos % (Auto) 0.3 Baso % (Auto) 0.5 Neut # 4.3 Lymph # 0.3 L [place] # 0.1 Eos # 0.0 Baso # 0.0 PT 14.6 H INR 1.40 H APTT 27.3 pCO2 43 pO2 74 L HCO3 27.8 ABG pH 7.43 ABG Total CO2 29.8 H ABG O2 Saturation 96.7 ABG O2 Content 15.8 ABG Base Excess 3.7 H ABG Hemoglobin 11.9 ABG Carboxyhemoglobin 1.6 H POC ABG HHb (Measured) 3.2 ABG Methemoglobin 0.9 ABG O2 Capacity 16.3 Jim Test Yes A-a O2 Difference 229.0 Hgb O2 Saturation 94.4 L Vent Mode Prvc/ac Mechanical Rate 14 FiO2 50.0 Tidal Volume 550 PEEP 5 Sodium 143 Potassium 4.7 Chloride 106 Carbon Dioxide 24 Anion Gap 18 BUN 22 H Creatinine 1.2 Est GFR ( Amer) > 60 Est GFR (Non-Af Amer) > 60 Random Glucose 219 H Calcium 8.2 L Total Bilirubin 1.7 H AST 71 H ALT 60 Alkaline Phosphatase 250 H D Ammonia 25 D Total Protein 6.5 Albumin 2.5 L Globulin 4.0 H Albumin/Globulin Ratio 0.6 L Fingerstick Blood Sugar Results: 146 <Lisa Singh - Last Filed: 09/22/16 10:40> CCU Objective - Vital Signs / Intake & Output Vital Signs (Last 4 hours): Vital Signs Temp Pulse Resp BP Pulse Ox 09/22/16 08:33 64 116/74 09/22/16 08:00 97.7 F 65 20 118/75 94 L Intake and Output (Last 8hrs): Intake & Output 09/21/16 09/22/16 09/22/16 22:59 06:59 14:59 Intake Total 1201 400 270 Output Total 500 700 Balance 701 -300 270 Weight 203 lb Intake: IV 26 20 Intake, Piggyback 350 250 Tube Feeding 525 150 0 Free Water Flush 300 250 Output: Gastric Amount 0 Stomach 0 Urine 500 700 Urethral ([place]) 500 700 Other: # Bowel Movements 2 1 1 - Medications Active Medications: Active Medications Generic Name Dose Route Start Last Admin Trade Name Freq PRN Reason Stop Dose Admin Acetaminophen 650 mg 09/10/16 02:44 09/15/16 01:19 Tylenol 650mg/20.3ml Solution Ud PO 650 mg Q6 PRN Administration Fever >100.4 F Albuterol Sulfate 2.5 mg 09/17/16 12:00 09/22/16 08:26 Albuterol 0.083% Inhal Madelin (2.5 Mg/3 Ml) Ud INH 2.5 mg RQID [facility] Administration Amiodarone HCl 200 mg 09/16/16 09:30 09/22/16 08:33 Cordarone PO 200 mg BID [facility] Administration Carvedilol 3.125 mg 09/14/16 11:30 09/22/16 08:33 Coreg PO 3.125 mg Q12 [facility] Administration Levetiracetam 500 mg/ Sodium 105 mls @ 210 mls/hr 09/08/16 12:45 09/22/16 08:34 Chloride IVPB 210 mls/hr Q12 [facility] Administration Piperacillin Sod/Tazobactam 100 mls @ 100 mls/hr 09/20/16 16:00 09/22/16 09:07 Sod 2.25 gm/ Sodium Chloride IVPB 100 mls/hr Q6 [facility] Administration Methylprednisolone 60 mg/ 50.96 mls @ 100 mls/hr 09/21/16 17:00 09/22/16 08:34 Sodium Chloride IVPB 100 mls/hr Q8 [facility] Administration Propofol 100 mls @ 14.901 mls/hr 09/21/16 23:45 09/22/16 05:00 Diprivan IV 09/22/16 23:46 8.94 mls/hr .Q6H43M [facility] Administration Protocol 25 MCG/KG/MIN Lactulose 20 gm 09/13/16 11:25 09/22/16 08:33 Enulose PO Not Given DAILY [facility] Pantoprazole Sodium 40 mg 09/19/16 10:45 09/22/16 08:34 Protonix Inj IVP 40 mg DAILY [facility] Administration Rifaximin 550 mg 09/19/16 17:00 09/22/16 08:34 Xifaxan PO 550 mg BID [facility] Administration Spironolactone 50 mg 09/14/16 11:15 09/22/16 08:33 Aldactone PO 50 mg DAILY [facility] Administration - Patient Studies Lab Studies: Lab Studies 09/22/16 09/22/16 Range/Units 05:06 04:30 WBC 4.6 L (4.8-10.8) K/uL RBC 3.83 L (4.40-5.90) Mil/uL Hgb 11.7 L (12.0-18.0) g/dL Hct 35.6 (35.0-51.0) % MCV 92.9 (80.0-94.0) fl MCH 30.4 (27.0-31.0) pg MCHC 32.8 L (33.0-37.0) g/dL RDW 14.7 H (11.5-14.5) % Plt Count 60 L (130-400) K/uL MPV 11.6 (7.2-11.7) fl Neut % (Auto) 92.4 H (50.0-75.0) % Lymph % (Auto) 5.6 L (20.0-40.0) % [place] % (Auto) 1.2 (0.0-10.0) % Eos % (Auto) 0.3 (0.0-4.0) % Baso % (Auto) 0.5 (0.0-2.0) % Neut # 4.3 (1.8-7.0) K/uL Lymph # 0.3 L (1.0-4.3) K/uL [place] # 0.1 (0.0-0.8) K/uL Eos # 0.0 (0.0-0.7) K/uL Baso # 0.0 (0.0-0.2) K/uL Neutrophils % (Manual) 93 H (42-75) % Lymphocytes % (Manual) 6 L (20-50) % Monocytes % (Manual) 1 (0-10) % Platelet Estimate Markedly decreased L (NORMAL) Anisocytosis (manual) Slight PT 14.6 H (9.6-11.2) SECONDS INR 1.40 H (0.92-1.08) APTT 27.3 (23.3-32.5) SECONDS pCO2 43 (35-45) mm/Hg pO2 74 L (80-100) mm/Hg HCO3 27.8 (21-28) mmol/L ABG pH 7.43 (7.35-7.45) ABG Total CO2 29.8 H (22-28) mmol/L ABG O2 Saturation 96.7 (95-98) % ABG O2 Content 15.8 (15-23) ML/dL ABG Base Excess 3.7 H (-2.0-3.0) mmol/L ABG Hemoglobin 11.9 (11.7-17.4) g/dL ABG Carboxyhemoglobin 1.6 H (0.5-1.5) % POC ABG HHb (Measured) 3.2 (0.0-5.0) % ABG Methemoglobin 0.9 (0.0-3.0) % ABG O2 Capacity 16.3 (16-24) mL/dL Jim Test Yes A-a O2 Difference 229.0 mm/Hg Hgb O2 Saturation 94.4 L (95.0-98.0) % Vent Mode Prvc/ac Mechanical Rate 14 FiO2 50.0 % Tidal Volume 550 PEEP 5 Sodium 143 (132-148) mmol/l Potassium 4.7 (3.6-5.0) MMOL/L Chloride 106 (98-107) mmol/L Carbon Dioxide 24 (22-30) mmol/L Anion Gap 18 (10-20) BUN 22 H (9-20) mg/dl Creatinine 1.2 (0.8-1.5) mg/dL Est GFR ( Amer) > 60 Est GFR (Non-Af Amer) > 60 Random Glucose 219 H (75-110) mg/dL Calcium 8.2 L (8.4-10.2) mg/dL Total Bilirubin 1.7 H (0.2-1.3) mg/dl AST 71 H (17-59) U/L ALT 60 (21-72) U/L Alkaline Phosphatase 250 H D (38-126) U/L Total Protein 6.5 (6.3-8.2) G/DL Albumin 2.5 L (3.5-5.0) g/dL Globulin 4.0 H (2.2-3.9) gm/dL Albumin/Globulin Ratio 0.6 L (1.0-2.1) Laboratory Results - last 24 hr 09/22/16 09/22/16 04:30 05:06 WBC 4.6 L RBC 3.83 L Hgb 11.7 L Hct 35.6 MCV 92.9 MCH 30.4 MCHC 32.8 L RDW 14.7 H Plt Count 60 L MPV 11.6 Neut % (Auto) 92.4 H Lymph % (Auto) 5.6 L [place] % (Auto) 1.2 Eos % (Auto) 0.3 Baso % (Auto) 0.5 Neut # 4.3 Lymph # 0.3 L [place] # 0.1 Eos # 0.0 Baso # 0.0 Neutrophils % (Manual) 93 H Lymphocytes % (Manual) 6 L Monocytes % (Manual) 1 Platelet Estimate Markedly decreased L Anisocytosis (manual) Slight PT 14.6 H INR 1.40 H APTT 27.3 pCO2 43 pO2 74 L HCO3 27.8 ABG pH 7.43 ABG Total CO2 29.8 H ABG O2 Saturation 96.7 ABG O2 Content 15.8 ABG Base Excess 3.7 H ABG Hemoglobin 11.9 ABG Carboxyhemoglobin 1.6 H POC ABG HHb (Measured) 3.2 ABG Methemoglobin 0.9 ABG O2 Capacity 16.3 Jim Test Yes A-a O2 Difference 229.0 Hgb O2 Saturation 94.4 L Vent Mode Prvc/ac Mechanical Rate 14 FiO2 50.0 Tidal Volume 550 PEEP 5 Sodium 143 Potassium 4.7 Chloride 106 Carbon Dioxide 24 Anion Gap 18 BUN 22 H Creatinine 1.2 Est GFR ( Amer) > 60 Est GFR (Non-Af Amer) > 60 Random Glucose 219 H Calcium 8.2 L Total Bilirubin 1.7 H AST 71 H ALT 60 Alkaline Phosphatase 250 H D Total Protein 6.5 Albumin 2.5 L Globulin 4.0 H Albumin/Globulin Ratio 0.6 L Attending/Attestation - Attestation I have personally seen and examined this patient.: Yes I have fully participated in the care of the patient.: Yes I have reviewed all pertinent clinical information: Yes Notes (Text): 09/22/16 10:32 Patient seen and examined in the morning. Today lung sounds are very clear today after initiation of steroids IV. For tracheostomy possibly on monday by Dr. Vergara, he wants platelets above 60 ( current value) and FFP despite INR 1.4 as well as cardiology clearance, so type and screen on monday morning for possible products on monday early am before surgery. Cardiology clearance also requested. Rest of acute problems stble.
[2016-09-22 10:01] LABS: NEUTROPHIL 93 % (42-75); TOTAL CELLS COUNTED 100
--- NOTE | 2016-09-22 10:23 | CP.PCM.PN ---
Subjective - Date & Time of Evaluation Date of Evaluation: 09/22/16 Time of Evaluation: 10:20 - Subjective Subjective: Patient was seen on rounds in the intensive care unit. He has been reintubated and placed on mechanical ventilation. He is currently somnolent although he does open his eyes to tactile stimuli. Today's chest x-ray was reviewed. The case was discussed with the chronic care nurse on rounds. He is currently orally intubated and mechanically ventilated. Small quantity of tenacious secretions are suctioned from the ETT. No dullness to percussion of the anterior thorax. No palpable subcutaneous emphysema. Breath sounds are well heard anteriorly but markedly diminished posteriorly in both lungs. No audible wheezing is appreciated. No rales or rhonchi are heard. Mild generalized dependent edema is noted. No cyanosis. Patient will require tracheostomy and likely PEG tube placement. Will likely require LTAC for long-term weaning. Maintain fluid electrolyte balance. Improve nutritional status. Objective - Vital Signs/Intake and Output Vital Signs (last 24 hours): Temp Pulse Resp BP Pulse Ox 97.7 F 64 20 116/74 94 L 09/22/16 08:00 09/22/16 08:33 09/22/16 08:00 09/22/16 08:33 09/22/16 08:00 Intake and Output: 09/21/16 09/22/16 23:59 11:59 Intake Total 1831 670 Output Total 500 700 Balance 1331 -30 - Medications Medications: Current Medications Acetaminophen (Tylenol 650mg/20.3ml Solution Ud) 650 mg PO Q6 PRN PRN Reason: Fever >100.4 F Last Admin: 09/15/16 01:19 Dose: 650 mg Albuterol Sulfate (Albuterol 0.083% Inhal Madelin (2.5 Mg/3 Ml) Ud) 2.5 mg INH RQID [facility] Last Admin: 09/22/16 08:26 Dose: 2.5 mg Amiodarone HCl (Cordarone) 200 mg PO BID [facility] Last Admin: 09/22/16 08:33 Dose: 200 mg Carvedilol (Coreg) 3.125 mg PO Q12 [facility] Last Admin: 09/22/16 08:33 Dose: 3.125 mg Levetiracetam 500 mg/ Sodium (Chloride) 105 mls @ 210 mls/hr IVPB Q12 [facility] Last Admin: 09/22/16 08:34 Dose: 210 mls/hr Piperacillin Sod/Tazobactam (Sod 2.25 gm/ Sodium Chloride) 100 mls @ 100 mls/ hr IVPB Q6 [facility] Last Admin: 09/22/16 09:07 Dose: 100 mls/hr Methylprednisolone 60 mg/ (Sodium Chloride) 50.96 mls @ 100 mls/hr IVPB Q8 [facility] Last Admin: 09/22/16 08:34 Dose: 100 mls/hr Propofol (Diprivan) 100 mls @ 14.901 mls/hr IV .Q6H43M [facility]; 25 MCG/KG/MIN PRN Reason: Protocol Stop: 09/22/16 23:46 Last Admin: 09/22/16 05:00 Dose: 8.94 mls/hr Lactulose (Enulose) 20 gm PO DAILY [facility] Last Admin: 09/22/16 08:33 Dose: Not Given Pantoprazole Sodium (Protonix Inj) 40 mg IVP DAILY [facility] Last Admin: 09/22/16 08:34 Dose: 40 mg Rifaximin (Xifaxan) 550 mg PO BID [facility] Last Admin: 09/22/16 08:34 Dose: 550 mg Spironolactone (Aldactone) 50 mg PO DAILY [facility] Last Admin: 09/22/16 08:33 Dose: 50 mg - Labs Labs: 09/22/16 04:30 09/22/16 04:30 PT 14.6 SECONDS (9.6-11.2) H 09/22/16 04:30 INR 1.40 (0.92-1.08) H 09/22/16 04:30 APTT 27.3 SECONDS (23.3-32.5) 09/22/16 04:30 Assessment and Plan (1) Aspiration pneumonia Status: Acute (2) Acute respiratory failure with hypoxia and hypercapnia Status: Acute (3) Pleural effusion Status: Acute (4) Congestive cardiomyopathy Status: Chronic (5) Altered mental status Status: Chronic
--- NOTE | 2016-09-22 12:56 | RAD ---
HISTORY: vented COMPARISON: 09/21/2016 FINDINGS: LUNGS: No pulmonary infiltrate. PLEURA: Small left pleural effusion with hazy opacity at left base and blunting of costophrenic angle. Is not significantly changed from the prior examination. CARDIOVASCULAR: Endotracheal tube and nasogastric tube noted. Grossly acceptable positioning. OSSEOUS STRUCTURES: No significant abnormalities. VISUALIZED UPPER ABDOMEN: Normal. OTHER FINDINGS: None. IMPRESSION: Small left pleural effusion.
--- NOTE | 2016-09-22 20:17 | CP.PCM.PN ---
Subjective - Date & Time of Evaluation Date of Evaluation: 09/22/16 Time of Evaluation: 14:00 - Subjective Subjective: SEEN ON RENAL F/U IN THE ICU RENAL FUNCTION AND ELECTROLYTES ARE ALL OK U/O IS GOOD CURRENTLY OFF IVF Objective - Vital Signs/Intake and Output Vital Signs (last 24 hours): Temp Pulse Resp BP Pulse Ox 97.8 F 67 14 106/67 93 L 09/22/16 16:00 09/22/16 18:00 09/22/16 18:00 09/22/16 18:00 09/22/16 18:00 Intake and Output: 09/22/16 09/23/16 18:59 06:59 Intake Total 1340 Output Total 450 Balance 890 - Medications Medications: Current Medications Acetaminophen (Tylenol 650mg/20.3ml Solution Ud) 650 mg PO Q6 PRN PRN Reason: Fever >100.4 F Last Admin: 09/15/16 01:19 Dose: 650 mg Albuterol Sulfate (Albuterol 0.083% Inhal Madelin (2.5 Mg/3 Ml) Ud) 2.5 mg INH RQID [facility] Last Admin: 09/22/16 19:19 Dose: 2.5 mg Amiodarone HCl (Cordarone) 200 mg PO BID [facility] Last Admin: 09/22/16 16:10 Dose: 200 mg Carvedilol (Coreg) 3.125 mg PO Q12 [facility] Last Admin: 09/22/16 08:33 Dose: 3.125 mg Levetiracetam 500 mg/ Sodium (Chloride) 105 mls @ 210 mls/hr IVPB Q12 [facility] Last Admin: 09/22/16 08:34 Dose: 210 mls/hr Piperacillin Sod/Tazobactam (Sod 2.25 gm/ Sodium Chloride) 100 mls @ 100 mls/ hr IVPB Q6 [facility] Last Admin: 09/22/16 16:11 Dose: 100 mls/hr Methylprednisolone 60 mg/ (Sodium Chloride) 50.96 mls @ 100 mls/hr IVPB Q8 [facility] Last Admin: 09/22/16 16:10 Dose: 100 mls/hr Propofol (Diprivan) 100 mls @ 14.901 mls/hr IV .Q6H43M [facility]; 25 MCG/KG/MIN PRN Reason: Protocol Stop: 09/22/16 23:46 Last Admin: 09/22/16 05:00 Dose: 8.94 mls/hr Lactulose (Enulose) 20 gm PO DAILY [facility] Last Admin: 09/22/16 08:33 Dose: Not Given Pantoprazole Sodium (Protonix Inj) 40 mg IVP DAILY [facility] Last Admin: 09/22/16 08:34 Dose: 40 mg Quetiapine Fumarate (Seroquel) 50 mg PO Q8H [facility] Last Admin: 09/22/16 14:31 Dose: 50 mg Rifaximin (Xifaxan) 550 mg PO BID [facility] Last Admin: 09/22/16 16:10 Dose: 550 mg Spironolactone (Aldactone) 50 mg PO DAILY [facility] Last Admin: 09/22/16 08:33 Dose: 50 mg - Labs Labs: 09/22/16 04:30 09/22/16 04:30 PT 14.6 SECONDS (9.6-11.2) H 09/22/16 04:30 INR 1.40 (0.92-1.08) H 09/22/16 04:30 APTT 27.3 SECONDS (23.3-32.5) 09/22/16 04:30 Assessment and Plan - Assessment and Plan (Free Text) Assessment: NONA RENAL FUNCTION IS BACK TO WNL BUN IS 22 LITTLE HIGH ELECTROLYTES OK
--- NOTE | 2016-09-22 22:43 | PN ---
DATE: 09/22/2016 SUBJECTIVE: The patient is seen today 09/22/2016. The patient is sedated, on the ventilator. PHYSICAL EXAMINATION: VITAL SIGNS: Blood pressure 106/70, temperature 98.1, respiratory rate 19, and pulse 65. HEENT: Pupils equal, reactive to light. NECK: No JVD, no carotid bruit, no lymph nodes, no thyromegaly. CHEST AND LUNGS: Bilateral symmetrical expansion. Few basilar rales. CARDIOVASCULAR: PMI not localized. S1, S2. No additional sounds. ABDOMEN: Normoactive bowel sounds, no tenderness, no organomegaly, no masses. EXTREMITIES: No cyanosis, no clubbing, no edema. CENTRAL NERVOUS SYSTEM: The patient is sedated on ventilator. ASSESSMENT: 1. Respiratory failure, likely secondary to seizures with hypoventilation and hypercapnia. 2. Dilated cardiomyopathy. 3. Alcohol withdrawal. PLAN: Continue ventilator management as per splunk dashboard developer. The patient was discussed with intensivi st; who discussed with the neurologist for possible repeat EEG, on [facility]. The patient is planned to have a tracheostomy and gastric tube. [facility] Adriana Ellison MD cc: [phone] TT: 09/22/2016 22:42:15 Confirmation # [id number] Dictation # [id number] ln
[2016-09-23] MEDS: methylPREDNISolone 60 MG in Sodium Chloride 0.9% 50 ML IVPB SCH ×2 (01:05→08:52)
[2016-09-23 05:22] LABS: ABG ALLEN TEST YES; ABG MECHANICAL RATE 12; ARTERIAL BLOOD GAS HCO3 26.9 mmol/L (21-28); ARTERIAL BLOOD GAS MODE A/C PC; ARTERIAL BLOOD GAS O2 CAPACITY 15.2 mL/dL (16-24); ARTERIAL BLOOD GAS O2 CONTENT 14.7 ML/dL (15-23); ARTERIAL BLOOD GAS PH 7.43 (7.35-7.45); ARTERIAL BLOOD GAS PO2 74 mm/Hg (80-100); ARTERIAL BLOOD HGB O2 SAT 94.6 % (95.0-98.0); ATERIAL BLOOD GAS PEEP 5; CARBOXYHEMOGLOBIN 1.6 % (0.5-1.5); HHB 3.1 % (0.0-5.0); METHEMOGLOBIN 0.8 % (0.0-3.0)
--- NOTE | 2016-09-23 07:16 | CP.PCM.PN ---
Subjective - Date & Time of Evaluation Date of Evaluation: 09/23/16 Time of Evaluation: 06:50 - Subjective Subjective: GENERAL SURGERY PROGRESS NOTE FOR DR. VERGARA 51 yo male patient seen in ICU this morning. Per nursing, no acute events noted overnight. Pt sedated and intubated at time of visit. Unresponsive to questioning at this time. Objective - Vital Signs/Intake and Output Vital Signs (last 24 hours): Temp Pulse Resp BP Pulse Ox 97.5 F L 65 12 112/69 97 09/23/16 04:00 09/23/16 06:00 09/23/16 06:00 09/23/16 06:00 09/23/16 06:00 Intake and Output: 09/23/16 09/23/16 06:59 18:59 Intake Total 1500 Output Total 750 Balance 750 - Medications Medications: Current Medications Acetaminophen (Tylenol 650mg/20.3ml Solution Ud) 650 mg PO Q6 PRN PRN Reason: Fever >100.4 F Last Admin: 09/15/16 01:19 Dose: 650 mg Albuterol Sulfate (Albuterol 0.083% Inhal Madelin (2.5 Mg/3 Ml) Ud) 2.5 mg INH RQID [facility] Last Admin: 09/22/16 19:19 Dose: 2.5 mg Amiodarone HCl (Cordarone) 200 mg PO BID [facility] Last Admin: 09/22/16 16:10 Dose: 200 mg Carvedilol (Coreg) 3.125 mg PO Q12 [facility] Last Admin: 09/22/16 20:13 Dose: 3.125 mg Levetiracetam 500 mg/ Sodium (Chloride) 105 mls @ 210 mls/hr IVPB Q12 [facility] Last Admin: 09/22/16 20:11 Dose: 210 mls/hr Piperacillin Sod/Tazobactam (Sod 2.25 gm/ Sodium Chloride) 100 mls @ 100 mls/ hr IVPB Q6 [facility] Last Admin: 09/23/16 04:10 Dose: 100 mls/hr Methylprednisolone 60 mg/ (Sodium Chloride) 50.96 mls @ 100 mls/hr IVPB Q8 [facility] Last Admin: 09/23/16 01:05 Dose: 100 mls/hr Lactulose (Enulose) 20 gm PO DAILY [facility] Last Admin: 09/22/16 08:33 Dose: Not Given Pantoprazole Sodium (Protonix Inj) 40 mg IVP DAILY [facility] Last Admin: 09/22/16 08:34 Dose: 40 mg Quetiapine Fumarate (Seroquel) 50 mg PO Q8H [facility] Last Admin: 09/23/16 05:43 Dose: 50 mg Rifaximin (Xifaxan) 550 mg PO BID [facility] Last Admin: 09/22/16 16:10 Dose: 550 mg Spironolactone (Aldactone) 50 mg PO DAILY [facility] Last Admin: 09/22/16 08:33 Dose: 50 mg - Labs Labs: 09/22/16 04:30 09/22/16 04:30 PT 14.6 SECONDS (9.6-11.2) H 09/22/16 04:30 INR 1.40 (0.92-1.08) H 09/22/16 04:30 APTT 27.3 SECONDS (23.3-32.5) 09/22/16 04:30 - Constitutional Appears: Non-toxic, Chronically Ill - Head Exam Head Exam: NORMAL INSPECTION - Respiratory Exam Additional comments: Pt on ventilator: FiO2 40%, PEEP 5 - Cardiovascular Exam Cardiovascular Exam: REGULAR RHYTHM - GI/Abdominal Exam GI & Abdominal Exam: Soft, Hernia (large ventral hernia). absent: Distended, Firm, Tenderness Additional comments: midline incision 2/2 laparotomy - Extremities Exam Extremities Exam: Pedal Edema - Neurological Exam Neurological Exam: absent: Alert, Awake - Skin Skin Exam: Normal Color, Warm Assessment and Plan - Assessment and Plan (Free Text) Assessment: 51 male with respiratory failure secondary to aspiration pneumonia Plan: - Pt seen and evaluated at the bedside - VSS, remains pancytopenic: pt will need correction of thrombocytopenia & INR prior to any planned procedure - Tentatively booked for tracheostomy for Tuesday 09/26 w/ Dr. Vergara - Cardiac clx will be needed for general anesthesia - FiO2 at 40% for procedure - d/w Dr. Vergara - Dr. Dick, PGY-1
[2016-09-23] MEDS: Albuterol 0.083% Inhal Sol (2.5 mg/3 mL) UD INH SCH ×4 (07:20→19:35)
--- NOTE | 2016-09-23 07:29 | CP.CCUPN ---
<Merrill Leyva T - Last Filed: 09/23/16 11:53> CCU Subjective - Physician Review Subjective (Free Text): Pt seen and examined at bedside in the ICU. Pt is currently sedated due to intubation, and though he's unresponsive to voice he does withdraw extremities x4 to pain. Pt is unable to answer questions and full ROS cannot be obtained. No known overnight complications or problems. CCU Objective - Vital Signs / Intake & Output Vital Signs (Last 4 hours): Vital Signs Temp Pulse Resp BP Pulse Ox 09/23/16 06:00 65 12 112/69 97 09/23/16 04:00 97.5 F L 64 13 102/60 96 Intake and Output (Last 8hrs): Intake & Output 09/22/16 09/23/16 09/23/16 22:59 06:59 14:59 Intake Total 1448 784 Output Total 450 750 Balance 998 34 Intake: IV 48 34 Intake, Piggyback 350 150 Oral 300 Tube Feeding 600 600 Free Water Flush 150 Output: Urine 450 750 Urethral (Clayton) 450 750 Other: # Bowel Movements 2 - Physical Exam Head: Positive for: Atraumatic, Normocephalic Pupils: Positive for: PERRL. Negative for: Sluggish, Non-Reactive Conjunctiva: Positive for: Normal. Negative for: Injected, Icteric Mouth: Positive for: Dry Pharnyx: Positive for: Other (intubated) Neck: Positive for: Trachea Midline. Negative for: JVD, Lymphadenopathy, Bruit Respiratory/Chest: Positive for: Good Air Exchange, Decreased Breath Sounds, Rhonchi (minimally rhonchi throughout). Negative for: Respiratory Distress, Wheezes Cardiovascular: Positive for: Regular Rate and Rhythm, Normal S1, S2, Peripheal Pulses Present. Negative for: Murmurs Abdomen: Positive for: Normal Bowel Sounds. Negative for: Tenderness, Distention, Peritoneal Signs, Guarding Upper Extremity: Positive for: Normal Inspection, NORMAL PULSES. Negative for: Cyanosis, Edema Lower Extremity: Positive for: Normal Inspection, NORMAL PULSES. Negative for: Edema, CALF TENDERNESS Neurological: Positive for: Other (intubated, unresonsive to voice) Skin: Positive for: Warm, Dry, Normal Color. Negative for: Rashes Psychiatric: Positive for: Other (intubated, unresponsive to voice) - Medications Active Medications: Active Medications Generic Name Dose Route Start Last Admin Trade Name Freq PRN Reason Stop Dose Admin Acetaminophen 650 mg 09/10/16 02:44 09/15/16 01:19 Tylenol 650mg/20.3ml Solution Ud PO 650 mg Q6 PRN Administration Fever >100.4 F Albuterol Sulfate 2.5 mg 09/17/16 12:00 09/22/16 19:19 Albuterol 0.083% Inhal Madelin (2.5 Mg/3 Ml) Ud INH 2.5 mg RQID [facility] Administration Amiodarone HCl 200 mg 09/16/16 09:30 09/22/16 16:10 Cordarone PO 200 mg BID [facility] Administration Carvedilol 3.125 mg 09/14/16 11:30 09/22/16 20:13 Coreg PO 3.125 mg Q12 [facility] Administration Levetiracetam 500 mg/ Sodium 105 mls @ 210 mls/hr 09/08/16 12:45 09/22/16 20:11 Chloride IVPB 210 mls/hr Q12 [facility] Administration Piperacillin Sod/Tazobactam 100 mls @ 100 mls/hr 09/20/16 16:00 09/23/16 04:10 Sod 2.25 gm/ Sodium Chloride IVPB 100 mls/hr Q6 [facility] Administration Methylprednisolone 60 mg/ 50.96 mls @ 100 mls/hr 09/21/16 17:00 09/23/16 01:05 Sodium Chloride IVPB 100 mls/hr Q8 [facility] Administration Lactulose 20 gm 09/13/16 11:25 09/22/16 08:33 Enulose PO Not Given DAILY [facility] Pantoprazole Sodium 40 mg 09/19/16 10:45 09/22/16 08:34 Protonix Inj IVP 40 mg DAILY [facility] Administration Quetiapine Fumarate 50 mg 09/22/16 14:00 09/23/16 05:43 Seroquel PO 50 mg Q8H [facility] Administration Rifaximin 550 mg 09/19/16 17:00 09/22/16 16:10 Xifaxan PO 550 mg BID [facility] Administration Spironolactone 50 mg 09/14/16 11:15 09/22/16 08:33 Aldactone PO 50 mg DAILY [facility] Administration - Patient Studies Lab Studies: Lab Studies 03/17/17 03/16/17 Range/Units 05:22 04:30 Neutrophils % (Manual) 93 H (42-75) % Lymphocytes % (Manual) 6 L (20-50) % Monocytes % (Manual) 1 (0-10) % Platelet Estimate Markedly decreased L (NORMAL) Anisocytosis (manual) Slight pCO2 41 (35-45) mm/Hg pO2 74 L (80-100) mm/Hg HCO3 26.9 (21-28) mmol/L ABG pH 7.43 (7.35-7.45) ABG Total CO2 28.5 H (22-28) mmol/L ABG O2 Saturation 96.8 (95-98) % ABG O2 Content 14.7 L (15-23) ML/dL ABG Base Excess 2.6 (-2.0-3.0) mmol/L ABG Hemoglobin 11.0 L (11.7-17.4) g/dL ABG Carboxyhemoglobin 1.6 H (0.5-1.5) % POC ABG HHb (Measured) 3.1 (0.0-5.0) % ABG Methemoglobin 0.8 (0.0-3.0) % ABG O2 Capacity 15.2 L (16-24) mL/dL Jim Test Yes A-a O2 Difference 160.0 mm/Hg Hgb O2 Saturation 94.6 L (95.0-98.0) % Vent Mode A/c pc Mechanical Rate 12 FiO2 40.0 % PEEP 5 Laboratory Results - last 24 hr 09/22/16 09/23/16 04:30 05:22 Neutrophils % (Manual) 93 H Lymphocytes % (Manual) 6 L Monocytes % (Manual) 1 Platelet Estimate Markedly decreased L Anisocytosis (manual) Slight pCO2 41 pO2 74 L HCO3 26.9 ABG pH 7.43 ABG Total CO2 28.5 H ABG O2 Saturation 96.8 ABG O2 Content 14.7 L ABG Base Excess 2.6 ABG Hemoglobin 11.0 L ABG Carboxyhemoglobin 1.6 H POC ABG HHb (Measured) 3.1 ABG Methemoglobin 0.8 ABG O2 Capacity 15.2 L Jim Test Yes A-a O2 Difference 160.0 Hgb O2 Saturation 94.6 L Vent Mode A/c pc Mechanical Rate 12 FiO2 40.0 PEEP 5 Fingerstick Blood Sugar Results: 146 Review of Systems - Review of Systems Review of Systems: see HPI Critical Care Progress Note - Ventilator Checklist Head of Bed 30 Degrees: Yes Daily Sedation Vacation: Yes Daily Assessment of Readiness to Wean: Yes Daily Spontaneous Breathing Trial: Yes PUD Prophalyxis: Yes DVT Prophylaxis: Yes Oral Care with Chlorhexidine Gluconate {CHG}: Yes - Vent Settings MODE:: PRESSURE SUPPORT RESP RATE:: 12 FIO2:: 40 PEEP:: 5 PRESSURE SUPPORT:: 10 Assessment/Plan - Assessment and Plan (Free Text) Plan: 51 yo M w PMHx of HTN, Crohn's, and etoh dependency was admitted for seizures, etoh withdrawal, and is currently in the ICU for hypercapnia 1) Acute respiratory failure with hypercapnia, aspiration pneumonia -Hypercapnia improved over past 2 days while intubated, pCO2 this AM -Sedation due to agitation, pulling tubes/lines otherwise --Discussed case w Surg & GI, tentatively planning for trach and PEG next week --Propofol to be titrated down and d/c'ed, Begin Precedex -Vent: Pressure Support- Rate 12, Inspiratory Press 10, PEEP 5, FiO2 40% -Zosyn onboard, as per ID --f/u w ID regarding duration of abx therapy -Albuterol 0.083% 2.5mg INH RQID -d/c'ed Methylprednisolone 60mg IVPB Q8H, no h/o emphysema or chronic smoking -Extubation failed 3x during ICU stay, in setting of chronic hypercapnea and mild b/l pleural effusion --f/u IR Consult for b/l tap in hopes of draining fluid -f/u Respiratory function, ABGs, labs 2) Altered mental status -Unknown etiology, not fully oriented in past when not sedated -However, currently sedated while on vent -f/u mentation 3) Congestive Cardiomyopathy -Likely etoh induced -LV Systolic Fcn severely impaired, EF of 15-20% -Severe Mitral Regurg, Moderate Tricuspid Regurg -Coreg 3.125mg Q12H -Amiodarone 200mg PO BID -f/u Vitals -f/u Cardiology recommendations 4) Hepatic encephalopathy -Rifaximin 550 mg PO BID, as per GI -Lactulose 20 gm PO Daily -f/u GI Recommendations 5) Thrombocytopenia -No signs of active bleed at this time 6) Acute Renal Failure -Improved, Stable, GFR: >60, will continue to follow labs and I/O's <Filippo Greene - Last Filed: 09/23/16 16:14> CCU Objective - Vital Signs / Intake & Output Vital Signs (Last 4 hours): Vital Signs Pulse Resp BP Pulse Ox 09/23/16 14:00 69 14 101/70 69 L Intake and Output (Last 8hrs): Intake & Output 09/23/16 09/23/16 09/23/16 06:59 14:59 22:59 Intake Total 784 1133 Output Total 750 1200 Balance 34 -67 Intake: IV 34 289 Intake, Piggyback 150 44 Tube Feeding 600 600 Free Water Flush 200 Output: Urine 750 1200 Urethral (Clayton) 750 1200 - Medications Active Medications: Active Medications Generic Name Dose Route Start Last Admin Trade Name Freq PRN Reason Stop Dose Admin Acetaminophen 650 mg 09/10/16 02:44 09/15/16 01:19 Tylenol 650mg/20.3ml Solution Ud PO 650 mg Q6 PRN Administration Fever >100.4 F Albuterol Sulfate 2.5 mg 09/17/16 12:00 09/23/16 15:25 Albuterol 0.083% Inhal Madelin (2.5 Mg/3 Ml) Ud INH 2.5 mg RQID [facility] Administration Amiodarone HCl 200 mg 09/16/16 09:30 09/23/16 08:52 Cordarone PO 200 mg BID [facility] Administration Carvedilol 3.125 mg 09/14/16 11:30 09/23/16 08:45 Coreg PO 3.125 mg Q12 [facility] Administration Furosemide 40 mg 09/23/16 10:15 09/23/16 11:04 Lasix IVP 40 mg DAILY [facility] Administration Piperacillin Sod/Tazobactam 100 mls @ 100 mls/hr 09/20/16 16:00 09/23/16 09:06 Sod 2.25 gm/ Sodium Chloride IVPB 100 mls/hr Q6 [facility] Administration Levetiracetam 500 mg/ Sodium 55 mls @ 110 mls/hr 09/23/16 21:00 Chloride IVPB Q12 [facility] Dexmedetomidine HCl 400 mcg/ 100 mls @ 4.6 mls/hr 09/23/16 11:09 09/23/16 14:00 Sodium Chloride IV 6.9 mls/hr .[id number] [facility] Administration Protocol 0.2 MCG/KG/HR Lactulose 20 gm 09/13/16 11:25 09/23/16 08:48 Enulose PO 20 gm DAILY [facility] Administration Pantoprazole Sodium 40 mg 09/19/16 10:45 09/23/16 08:51 Protonix Inj IVP 40 mg DAILY [facility] Administration Quetiapine Fumarate 50 mg 09/22/16 14:00 09/23/16 13:43 Seroquel PO 50 mg Q8H [facility] Administration Rifaximin 550 mg 09/19/16 17:00 09/23/16 08:52 Xifaxan PO 550 mg BID [facility] Administration Spironolactone 50 mg 09/14/16 11:15 09/23/16 08:44 Aldactone PO 50 mg DAILY [facility] Administration - Patient Studies Lab Studies: Lab Studies 09/23/16 09/23/16 Range/Units 09:30 05:22 WBC 5.8 (4.8-10.8) K/uL RBC 3.62 L (4.40-5.90) Mil/uL Hgb 10.9 L (12.0-18.0) g/dL Hct 33.5 L (35.0-51.0) % MCV 92.6 (80.0-94.0) fl MCH 30.1 (27.0-31.0) pg MCHC 32.6 L (33.0-37.0) g/dL RDW 14.9 H (11.5-14.5) % Plt Count 63 L (130-400) K/uL MPV 11.6 (7.2-11.7) fl Neut % (Auto) 93.5 H (50.0-75.0) % Lymph % (Auto) 4.0 L (20.0-40.0) % [place] % (Auto) 2.3 (0.0-10.0) % Eos % (Auto) 0.1 (0.0-4.0) % Baso % (Auto) 0.1 (0.0-2.0) % Neut # 5.4 (1.8-7.0) K/uL Lymph # 0.2 L (1.0-4.3) K/uL [place] # 0.1 (0.0-0.8) K/uL Eos # 0.0 (0.0-0.7) K/uL Baso # 0.0 (0.0-0.2) K/uL Neutrophils % (Manual) 92 H (42-75) % Band Neutrophils % 2 (0-2) % Lymphocytes % (Manual) 4 L (20-50) % Monocytes % (Manual) 2 (0-10) % Platelet Estimate Decreased L (NORMAL) Giant Platelets Present RBC Morphology Normal (NORMAL) pCO2 41 (35-45) mm/Hg pO2 74 L (80-100) mm/Hg HCO3 26.9 (21-28) mmol/L ABG pH 7.43 (7.35-7.45) ABG Total CO2 28.5 H (22-28) mmol/L ABG O2 Saturation 96.8 (95-98) % ABG O2 Content 14.7 L (15-23) ML/dL ABG Base Excess 2.6 (-2.0-3.0) mmol/L ABG Hemoglobin 11.0 L (11.7-17.4) g/dL ABG Carboxyhemoglobin 1.6 H (0.5-1.5) % POC ABG HHb (Measured) 3.1 (0.0-5.0) % ABG Methemoglobin 0.8 (0.0-3.0) % ABG O2 Capacity 15.2 L (16-24) mL/dL Jim Test Yes A-a O2 Difference 160.0 mm/Hg Hgb O2 Saturation 94.6 L (95.0-98.0) % Vent Mode A/c pc Mechanical Rate 12 FiO2 40.0 % PEEP 5 Sodium 140 (132-148) mmol/l Potassium 4.5 (3.6-5.0) MMOL/L Chloride 107 (98-107) mmol/L Carbon Dioxide 26 (22-30) mmol/L Anion Gap 12 (10-20) BUN 34 H (9-20) mg/dl Creatinine 1.2 (0.8-1.5) mg/dL Est GFR ( Amer) > 60 Est GFR (Non-Af Amer) > 60 Random Glucose 265 H (75-110) mg/dL Calcium 8.1 L (8.4-10.2) mg/dL Total Bilirubin 1.0 (0.2-1.3) mg/dl AST 51 (17-59) U/L ALT 53 (21-72) U/L Alkaline Phosphatase 220 H (38-126) U/L Total Protein 6.3 (6.3-8.2) G/DL Albumin 2.4 L (3.5-5.0) g/dL Globulin 3.8 (2.2-3.9) gm/dL Albumin/Globulin Ratio 0.6 L (1.0-2.1) Laboratory Results - last 24 hr 09/23/16 09/23/16 05:22 09:30 WBC 5.8 RBC 3.62 L Hgb 10.9 L Hct 33.5 L MCV 92.6 MCH 30.1 MCHC 32.6 L RDW 14.9 H Plt Count 63 L MPV 11.6 Neut % (Auto) 93.5 H Lymph % (Auto) 4.0 L [place] % (Auto) 2.3 Eos % (Auto) 0.1 Baso % (Auto) 0.1 Neut # 5.4 Lymph # 0.2 L [place] # 0.1 Eos # 0.0 Baso # 0.0 Neutrophils % (Manual) 92 H Band Neutrophils % 2 Lymphocytes % (Manual) 4 L Monocytes % (Manual) 2 Platelet Estimate Decreased L Giant Platelets Present RBC Morphology Normal pCO2 41 pO2 74 L HCO3 26.9 ABG pH 7.43 ABG Total CO2 28.5 H ABG O2 Saturation 96.8 ABG O2 Content 14.7 L ABG Base Excess 2.6 ABG Hemoglobin 11.0 L ABG Carboxyhemoglobin 1.6 H POC ABG HHb (Measured) 3.1 ABG Methemoglobin 0.8 ABG O2 Capacity 15.2 L Jim Test Yes A-a O2 Difference 160.0 Hgb O2 Saturation 94.6 L Vent Mode A/c pc Mechanical Rate 12 FiO2 40.0 PEEP 5 Sodium 140 Potassium 4.5 Chloride 107 Carbon Dioxide 26 Anion Gap 12 BUN 34 H Creatinine 1.2 Est GFR ( Amer) > 60 Est GFR (Non-Af Amer) > 60 Random Glucose 265 H Calcium 8.1 L Total Bilirubin 1.0 AST 51 ALT 53 Alkaline Phosphatase 220 H Total Protein 6.3 Albumin 2.4 L Globulin 3.8 Albumin/Globulin Ratio 0.6 L Attending/Attestation - Attestation I have personally seen and examined this patient.: Yes I have fully participated in the care of the patient.: Yes I have reviewed all pertinent clinical information: Yes Notes (Text): 09/23/16 16:12 I have seen and examined the patient. Medical records, lab studies, and imaging were reviewed by me and a management plan was formulated on multidisciplinary rounds with resident Dr. Leyva. I agree with their above documented assessment and plan. Patient will undergo thoracentesis to possibly optimize for extubation. Started on precedex, stopping propofol. Patient tolerated pressure support with no hypercarbia, but becomes hypercabic post-extubation, may need BIPAP for undiagnosed IRIS or patient's mental status on extubation may be decreased. Critical Care Time 35 minutes. Multi-disciplinary rounds were performed with house staff, nursing, speech therapy, respiratory therapy, pharmacy and nutrition with integrated input from the primary team/attending and other consulting services. The documented time is cumulative and includes review of patient data/exams/labs/chart review and examination of the patient on rounds and throughout the day; time is exclusive of any procedures or teaching time.
[2016-09-23] MEDS: levETIRAcetam 500 MG in Sodium Chloride 0.9% 100 ML IVPB SCH (08:48)
[2016-09-23 09:46] LABS: BASO % 0.1 % (0.0-2.0); EOS % 0.1 % (0.0-4.0); HEMATOCRIT 33.5 % (35.0-51.0); LYMPH # 0.2 K/uL (1.0-4.3); MEAN CELL VOLUME 92.6 fl (80.0-94.0); MEAN CORPUSCULAR HEMOGLOBIN 30.1 pg (27.0-31.0); MEAN CORPUSCULAR HGB CONC 32.6 g/dL (33.0-37.0); MEAN PLATELET VOLUME 11.6 fl (7.2-11.7); MONO # 0.1 K/uL (0.0-0.8); MONO % 2.3 % (0.0-10.0); NEUT # 5.4 K/uL (1.8-7.0); NEUT % 93.5 % (50.0-75.0); PLATELET COUNT 63 K/uL (130-400); RED CELL DISTRIBUTION WIDTH 14.9 % (11.5-14.5); WHITE BLOOD COUNT 5.8 K/uL (4.8-10.8)
--- NOTE | 2016-09-23 09:46 | RAD ---
HISTORY: Pt's intubated, check ETT placement COMPARISON: No prior. FINDINGS: LUNGS: No active pulmonary disease. PLEURA: No significant pleural effusion identified, no pneumothorax apparent. CARDIOVASCULAR: Normal. OSSEOUS STRUCTURES: No significant abnormalities. VISUALIZED UPPER ABDOMEN: Normal. OTHER FINDINGS: ETT and NGT are in place. ETT is above the maxwell.. IMPRESSION: Tubes in good position.
--- NOTE | 2016-09-23 09:50 | CP.PCM.PN ---
Subjective - Date & Time of Evaluation Date of Evaluation: 09/23/16 Time of Evaluation: 09:45 - Subjective Subjective: Orally intubated and mechanically ventilated. Awake, but not following commands. AM chest x-ray essentially the same. SpO2 97%, afebrile, HR 60's, no dyspnea or paradoxical respiratory motion. Dependant edema appears to be mild, no cyanosis noted. No dullness on percussion of the anterior chest wall. No subcutaneous emphysema palpated. No palpable lymphadenopathy. Breath sounds well heard anteriorly in both lungs. Breath sounds very diminished with bronchial character posteriorly on the right. Breath sounds minimally appreciated posteriorly on the left. No audible wheezes or rales. Plan for tracheostomy Monday. Suggest repeat CT chest in the interim to see if the effusions have increased. Thoracentesis if effusions are greater. Will need platelet transfusion prior to procedures. Objective - Vital Signs/Intake and Output Vital Signs (last 24 hours): Temp Pulse Resp BP Pulse Ox 97.5 F L 64 12 124/78 97 09/23/16 04:00 09/23/16 08:52 09/23/16 06:00 09/23/16 08:52 09/23/16 06:00 Intake and Output: 09/22/16 09/23/16 23:59 11:59 Intake Total 1636 784 Output Total 450 750 Balance 1186 34 - Medications Medications: Current Medications Acetaminophen (Tylenol 650mg/20.3ml Solution Ud) 650 mg PO Q6 PRN PRN Reason: Fever >100.4 F Last Admin: 09/15/16 01:19 Dose: 650 mg Albuterol Sulfate (Albuterol 0.083% Inhal Madelin (2.5 Mg/3 Ml) Ud) 2.5 mg INH RQID [facility] Last Admin: 09/23/16 07:20 Dose: 2.5 mg Amiodarone HCl (Cordarone) 200 mg PO BID [facility] Last Admin: 09/23/16 08:52 Dose: 200 mg Carvedilol (Coreg) 3.125 mg PO Q12 [facility] Last Admin: 09/23/16 08:45 Dose: 3.125 mg Piperacillin Sod/Tazobactam (Sod 2.25 gm/ Sodium Chloride) 100 mls @ 100 mls/ hr IVPB Q6 [facility] Last Admin: 09/23/16 09:06 Dose: 100 mls/hr Methylprednisolone 60 mg/ (Sodium Chloride) 50.96 mls @ 100 mls/hr IVPB Q8 [facility] Last Admin: 09/23/16 08:52 Dose: 100 mls/hr Levetiracetam 500 mg/ Sodium ([facility]) 55 mls @ 110 mls/hr IVPB Q12 [facility] Lactulose (Enulose) 20 gm PO DAILY [facility] Last Admin: 09/23/16 08:48 Dose: 20 gm Pantoprazole Sodium (Protonix Inj) 40 mg IVP DAILY [facility] Last Admin: 09/23/16 08:51 Dose: 40 mg Quetiapine Fumarate (Seroquel) 50 mg PO Q8H [facility] Last Admin: 09/23/16 05:43 Dose: 50 mg Rifaximin (Xifaxan) 550 mg PO BID [facility] Last Admin: 09/23/16 08:52 Dose: 550 mg Spironolactone (Aldactone) 50 mg PO DAILY [facility] Last Admin: 09/23/16 08:44 Dose: 50 mg - Labs Labs: 09/22/16 04:30 09/22/16 04:30 PT 14.6 SECONDS (9.6-11.2) H 09/22/16 04:30 INR 1.40 (0.92-1.08) H 09/22/16 04:30 APTT 27.3 SECONDS (23.3-32.5) 09/22/16 04:30 Assessment and Plan (1) Aspiration pneumonia Status: Acute (2) Acute respiratory failure with hypoxia and hypercapnia Status: Acute (3) Pleural effusion Status: Acute (4) Congestive cardiomyopathy Status: Chronic (5) Altered mental status Status: Chronic
[2016-09-23 09:51] LABS: ALB/GLOB RATIO 0.6 (1.0-2.1); ALKALINE PHOSPHATASE 220 U/L (38-126); ALT/SGPT 53 U/L (21-72); AST/SGOT 51 U/L (17-59); BLOOD UREA NITROGEN 34 mg/dl (9-20); CALCIUM 8.1 mg/dL (8.4-10.2); CARBON DIOXIDE 26 mmol/L (22-30); CHLORIDE 107 mmol/L (98-107); GFR AFRICAN-AMERICAN > 60; GLUCOSE,RANDOM 265 mg/dL (75-110); POTASSIUM 4.5 MMOL/L (3.6-5.0); SODIUM 140 mmol/l (132-148); TOTAL PROTEIN 6.3 G/DL (6.3-8.2)
[2016-09-23 11:50] LABS: GIANT PLATELETS PRESENT; NEUTROPHIL 92 % (42-75); TOTAL CELLS COUNTED 100
[2016-09-23] MEDS ORDERED: Lidocaine 1% Inj (20ml) ONE (13:04)
[2016-09-23] MEDS: Dexmedetomidine Hydrochloride 400 MCG in Sodium Chloride 0.9% 96 ML IV SCH ×7 (13:22→21:40)
--- NOTE | 2016-09-23 14:07 | US ---
PROCEDURE: Limited sonographic evaluation the right and left chest. Date of study: 09/23/2016 HISTORY: Ventilatory failure and pleural effusions seen in recent CT scan COMPARISON: TECHNIQUE: Limited sonographic evaluation of the chest was performed for purposes of thoracentesis. FINDINGS: Evaluation of the right chest with a linear probe with the patient supine and slightly decubitus showed no pleural effusion. Evaluation of the left chest showed a very tiny amount of pleural fluid not sufficient for thoracentesis. IMPRESSION: Limited sonographic evaluation of right and left chest for purposes of thoracentesis did not show any pleural effusion on the right and a tiny amount on the left, insufficient for thoracentesis.
--- NOTE | 2016-09-23 19:06 | CP.PCM.PN ---
Subjective - Date & Time of Evaluation Date of Evaluation: 09/23/16 Time of Evaluation: 15:00 - Subjective Subjective: SEEN ON RENAL F/U ALL PREVIOUS EMR REVIEWED REMAINS INTUBATED .. IN NAD CREAT WNL BUN WENT UP 22 TO 34 PT IS NOT ON IVF .. WILL CHEK BNP Objective - Vital Signs/Intake and Output Vital Signs (last 24 hours): Temp Pulse Resp BP Pulse Ox 98.0 F 75 25 H 132/77 97 09/23/16 16:00 09/23/16 18:00 09/23/16 18:00 09/23/16 18:00 09/23/16 18:00 Intake and Output: 09/23/16 09/24/16 18:59 06:59 Intake Total 1661 Output Total 2650 Balance -989 - Medications Medications: Current Medications Acetaminophen (Tylenol 650mg/20.3ml Solution Ud) 650 mg PO Q6 PRN PRN Reason: Fever >100.4 F Last Admin: 09/15/16 01:19 Dose: 650 mg Albuterol Sulfate (Albuterol 0.083% Inhal Madelin (2.5 Mg/3 Ml) Ud) 2.5 mg INH RQID [facility] Last Admin: 09/23/16 15:25 Dose: 2.5 mg Amiodarone HCl (Cordarone) 200 mg PO BID [facility] Last Admin: 09/23/16 16:26 Dose: 200 mg Carvedilol (Coreg) 3.125 mg PO Q12 [facility] Last Admin: 09/23/16 08:45 Dose: 3.125 mg Piperacillin Sod/Tazobactam (Sod 2.25 gm/ Sodium Chloride) 100 mls @ 100 mls/ hr IVPB Q6 [facility] Last Admin: 09/23/16 16:28 Dose: 100 mls/hr Levetiracetam 500 mg/ Sodium (Chloride) 55 mls @ 110 mls/hr IVPB Q12 [facility] Dexmedetomidine HCl 400 mcg/ (Sodium Chloride) 100 mls @ 4.6 mls/hr IV .[id number] [facility]; 0.2 MCG/KG/HR PRN Reason: Protocol Last Admin: 09/23/16 16:24 Dose: 9.2 mls/hr Lactulose (Enulose) 20 gm PO DAILY [facility] Last Admin: 09/23/16 08:48 Dose: 20 gm Pantoprazole Sodium (Protonix Inj) 40 mg IVP DAILY [facility] Last Admin: 09/23/16 08:51 Dose: 40 mg Quetiapine Fumarate (Seroquel) 50 mg PO Q8H [facility] Last Admin: 09/23/16 13:43 Dose: 50 mg Rifaximin (Xifaxan) 550 mg PO BID [facility] Last Admin: 09/23/16 16:27 Dose: 550 mg Spironolactone (Aldactone) 50 mg PO DAILY [facility] Last Admin: 09/23/16 08:44 Dose: 50 mg - Labs Labs: 09/23/16 09:30 09/23/16 09:30 PT 14.6 SECONDS (9.6-11.2) H 09/22/16 04:30 INR 1.40 (0.92-1.08) H 09/22/16 04:30 APTT 27.3 SECONDS (23.3-32.5) 09/22/16 04:30 Assessment and Plan - Assessment and Plan (Free Text) Assessment: NONA .. RENAL FUNCTION BACK TO [facility] BUN GOING UP ..WILL CHEKBNP TO SEE IF PT NEEDS IVF OR DUIRETICS C/O CURRENT CARE
[2016-09-24] MEDS: Dexmedetomidine Hydrochloride 400 MCG in Sodium Chloride 0.9% 96 ML IV SCH ×6 (03:10→22:56)
[2016-09-24 05:54] LABS: ABG ALLEN TEST YES; ABG MECHANICAL RATE 12; ARTERIAL BLOOD GAS HCO3 29.4 mmol/L (21-28); ARTERIAL BLOOD GAS MODE A/C PC; ARTERIAL BLOOD GAS O2 CAPACITY 16.6 mL/dL (16-24); ARTERIAL BLOOD GAS O2 CONTENT 16.4 ML/dL (15-23); ARTERIAL BLOOD GAS PH 7.44 (7.35-7.45); ARTERIAL BLOOD GAS PO2 97 mm/Hg (80-100); ARTERIAL BLOOD HGB O2 SAT 96.4 % (95.0-98.0); ATERIAL BLOOD GAS PEEP 5; CARBOXYHEMOGLOBIN 1.4 % (0.5-1.5); HHB 1.5 % (0.0-5.0); METHEMOGLOBIN 0.8 % (0.0-3.0)
[2016-09-24 06:33] LABS: BLOOD UREA NITROGEN 40 mg/dl (9-20); CALCIUM 8.3 mg/dL (8.4-10.2); CARBON DIOXIDE 30 mmol/L (22-30); CHLORIDE 105 mmol/L (98-107); GFR AFRICAN-AMERICAN > 60; GLUCOSE,RANDOM 236 mg/dL (75-110); POTASSIUM 4.6 MMOL/L (3.6-5.0); SODIUM 142 mmol/l (132-148)
[2016-09-24 06:38] LABS: PARTIAL THROMBOPLASTIN TIME 23.3 SECONDS (23.3-32.5)
[2016-09-24 06:59] LABS: BASO % 0.1 % (0.0-2.0); HEMATOCRIT 36.2 % (35.0-51.0); LYMPH # 0.2 K/uL (1.0-4.3); LYMPH % 3.6 % (20.0-40.0); MEAN CELL VOLUME 92.8 fl (80.0-94.0); MEAN CORPUSCULAR HEMOGLOBIN 30.4 pg (27.0-31.0); MEAN CORPUSCULAR HGB CONC 32.8 g/dL (33.0-37.0); MONO # 0.4 K/uL (0.0-0.8); MONO % 6.6 % (0.0-10.0); NEUT # 5.9 K/uL (1.8-7.0); NEUT % 89.7 % (50.0-75.0); RED CELL DISTRIBUTION WIDTH 14.9 % (11.5-14.5); WHITE BLOOD COUNT 6.5 K/uL (4.8-10.8)
--- NOTE | 2016-09-24 07:34 | CP.CCUPN ---
CCU Subjective - Physician Review Events Since Last Encounter (Free Text): 09/24/16 07:32 Patient on ventilator, on pressure control, RR 12, FIO2 40%, no pressors, sedated, on OG tube feeding, events reviewed CCU Objective - Vital Signs / Intake & Output Vital Signs (Last 4 hours): Vital Signs Pulse Resp BP Pulse Ox 09/24/16 06:00 72 20 133/92 H 100 09/24/16 04:00 72 17 138/98 H 100 Intake and Output (Last 8hrs): Intake & Output 09/23/16 09/24/16 09/24/16 22:59 06:59 14:59 Intake Total 1310 752 Output Total 1450 1250 Balance -140 -498 Intake: IV 46 52 Intake, Piggyback 264 100 Oral 150 Tube Feeding 750 600 Free Water Flush 100 Output: Urine 1400 1250 Urethral ([place]) 1400 1250 Stool 50 Other: # Bowel Movements 1 - Physical Exam Head: Positive for: Atraumatic, Normocephalic Pupils: Positive for: PERRL. Negative for: Sluggish, Non-Reactive Conjunctiva: Positive for: Normal. Negative for: Injected, Icteric Mouth: Positive for: Dry Pharnyx: Positive for: Other (intubated) Nose (External): Negative for: Abrasion Nose (Internal): Positive for: Normal Inspection Neck: Positive for: Trachea Midline. Negative for: JVD, Lymphadenopathy, Bruit Respiratory/Chest: Positive for: Good Air Exchange, Decreased Breath Sounds, Rhonchi (minimally rhonchi throughout). Negative for: Wheezes Cardiovascular: Positive for: Regular Rate and Rhythm, Normal S1, S2, Peripheal Pulses Present. Negative for: Murmurs Abdomen: Positive for: Normal Bowel Sounds. Negative for: Tenderness, Distention, Peritoneal Signs, Guarding Upper Extremity: Positive for: Normal Inspection, NORMAL PULSES. Negative for: Cyanosis, Edema Lower Extremity: Positive for: Normal Inspection, NORMAL PULSES. Negative for: Edema, CALF TENDERNESS Neurological: Positive for: Other (intubated) Skin: Positive for: Warm, Dry, Normal Color. Negative for: Rashes Psychiatric: Positive for: Other (intubated) - Medications Active Medications: Active Medications Generic Name Dose Route Start Last Admin Trade Name Freq PRN Reason Stop Dose Admin Acetaminophen 650 mg 09/10/16 02:44 09/15/16 01:19 Tylenol 650mg/20.3ml Solution Ud PO 650 mg Q6 PRN Administration Fever >100.4 F Albuterol Sulfate 2.5 mg 09/17/16 12:00 09/23/16 19:35 Albuterol 0.083% Inhal Madelin (2.5 Mg/3 Ml) Ud INH 2.5 mg RQID [facility] Administration Amiodarone HCl 200 mg 09/16/16 09:30 09/23/16 16:26 Cordarone PO 200 mg BID [facility] Administration Carvedilol 3.125 mg 09/14/16 11:30 09/23/16 20:04 Coreg PO 3.125 mg Q12 [facility] Administration Piperacillin Sod/Tazobactam 100 mls @ 100 mls/hr 09/20/16 16:00 09/24/16 03:17 Sod 2.25 gm/ Sodium Chloride IVPB 100 mls/hr Q6 [facility] Administration Levetiracetam 500 mg/ Sodium 55 mls @ 110 mls/hr 09/23/16 21:00 09/23/16 20:03 Chloride IVPB 110 mls/hr Q12 [facility] Administration Dexmedetomidine HCl 400 mcg/ 100 mls @ 4.6 mls/hr 09/23/16 11:09 09/24/16 03:10 Sodium Chloride IV 18.41 mls/hr .[id number] [facility] Administration Protocol 0.2 MCG/KG/HR Lactulose 20 gm 09/13/16 11:25 09/23/16 08:48 Enulose PO 20 gm DAILY [facility] Administration Pantoprazole Sodium 40 mg 09/19/16 10:45 09/23/16 08:51 Protonix Inj IVP 40 mg DAILY [facility] Administration Quetiapine Fumarate 50 mg 09/22/16 14:00 09/24/16 06:54 Seroquel PO 50 mg Q8H [facility] Administration Rifaximin 550 mg 09/19/16 17:00 09/23/16 16:27 Xifaxan PO 550 mg BID [facility] Administration Spironolactone 50 mg 09/14/16 11:15 09/23/16 08:44 Aldactone PO 50 mg DAILY [facility] Administration - Patient Studies Lab Studies: Lab Studies 09/24/16 09/24/16 09/23/16 Range/Units 06:02 04:00 09:30 WBC 6.5 5.8 (4.8-10.8) K/uL RBC 3.91 L 3.62 L (4.40-5.90) Mil/uL Hgb 11.9 L 10.9 L (12.0-18.0) g/dL Hct 36.2 33.5 L (35.0-51.0) % MCV 92.8 92.6 (80.0-94.0) fl MCH 30.4 30.1 (27.0-31.0) pg MCHC 32.8 L 32.6 L (33.0-37.0) g/dL RDW 14.9 H 14.9 H (11.5-14.5) % Plt Count 61 L 63 L (130-400) K/uL MPV 12.0 H 11.6 (7.2-11.7) fl Neut % (Auto) 89.7 H 93.5 H (50.0-75.0) % Lymph % (Auto) 3.6 L 4.0 L (20.0-40.0) % [place] % (Auto) 6.6 2.3 (0.0-10.0) % Eos % (Auto) 0.0 0.1 (0.0-4.0) % Baso % (Auto) 0.1 0.1 (0.0-2.0) % Neut # 5.9 5.4 (1.8-7.0) K/uL Lymph # 0.2 L 0.2 L (1.0-4.3) K/uL [place] # 0.4 0.1 (0.0-0.8) K/uL Eos # 0.0 0.0 (0.0-0.7) K/uL Baso # 0.0 0.0 (0.0-0.2) K/uL Neutrophils % (Manual) 92 H (42-75) % Band Neutrophils % 2 (0-2) % Lymphocytes % (Manual) 4 L (20-50) % Monocytes % (Manual) 2 (0-10) % Platelet Estimate Decreased L (NORMAL) Giant Platelets Present RBC Morphology Normal (NORMAL) PT 13.1 H (9.6-11.2) SECONDS INR 1.26 H (0.92-1.08) APTT 23.3 (23.3-32.5) SECONDS pCO2 45 (35-45) mm/Hg pO2 97 (80-100) mm/Hg HCO3 29.4 H (21-28) mmol/L ABG pH 7.44 (7.35-7.45) ABG Total CO2 32.0 H (22-28) mmol/L ABG O2 Saturation 98.5 H (95-98) % ABG O2 Content 16.4 (15-23) ML/dL ABG Base Excess 5.7 H (-2.0-3.0) mmol/L ABG Hemoglobin 12.0 (11.7-17.4) g/dL ABG Carboxyhemoglobin 1.4 (0.5-1.5) % POC ABG HHb (Measured) 1.5 (0.0-5.0) % ABG Methemoglobin 0.8 (0.0-3.0) % ABG O2 Capacity 16.6 (16-24) mL/dL Jim Test Yes A-a O2 Difference 132.0 mm/Hg Hgb O2 Saturation 96.4 (95.0-98.0) % Vent Mode A/c pc Mechanical Rate 12 FiO2 40.0 % PEEP 5 Sodium 142 140 (132-148) mmol/l Potassium 4.6 4.5 (3.6-5.0) MMOL/L Chloride 105 107 (98-107) mmol/L Carbon Dioxide 30 26 (22-30) mmol/L Anion Gap 12 12 (10-20) BUN 40 H 34 H (9-20) mg/dl Creatinine 1.4 1.2 (0.8-1.5) mg/dL Est GFR ( Amer) > 60 > 60 Est GFR (Non-Af Amer) 53 > 60 Random Glucose 236 H 265 H (75-110) mg/dL Calcium 8.3 L 8.1 L (8.4-10.2) mg/dL Total Bilirubin 1.0 (0.2-1.3) mg/dl AST 51 (17-59) U/L ALT 53 (21-72) U/L Alkaline Phosphatase 220 H (38-126) U/L NT-Pro-B Natriuret Pep 7040 H (0-900) pg/ml Total Protein 6.3 (6.3-8.2) G/DL Albumin 2.4 L (3.5-5.0) g/dL Globulin 3.8 (2.2-3.9) gm/dL Albumin/Globulin Ratio 0.6 L (1.0-2.1) Laboratory Results - last 24 hr 09/23/16 09/24/16 09/24/16 09:30 04:00 06:02 WBC 5.8 6.5 RBC 3.62 L 3.91 L Hgb 10.9 L 11.9 L Hct 33.5 L 36.2 MCV 92.6 92.8 MCH 30.1 30.4 MCHC 32.6 L 32.8 L RDW 14.9 H 14.9 H Plt Count 63 L 61 L MPV 11.6 12.0 H Neut % (Auto) 93.5 H 89.7 H Lymph % (Auto) 4.0 L 3.6 L [place] % (Auto) 2.3 6.6 Eos % (Auto) 0.1 0.0 Baso % (Auto) 0.1 0.1 Neut # 5.4 5.9 Lymph # 0.2 L 0.2 L Charles # 0.1 0.4 Eos # 0.0 0.0 Baso # 0.0 0.0 Neutrophils % (Manual) 92 H Band Neutrophils % 2 Lymphocytes % (Manual) 4 L Monocytes % (Manual) 2 Platelet Estimate Decreased L Giant Platelets Present RBC Morphology Normal PT 13.1 H INR 1.26 H APTT 23.3 pCO2 45 pO2 97 HCO3 29.4 H ABG pH 7.44 ABG Total CO2 32.0 H ABG O2 Saturation 98.5 H ABG O2 Content 16.4 ABG Base Excess 5.7 H ABG Hemoglobin 12.0 ABG Carboxyhemoglobin 1.4 POC ABG HHb (Measured) 1.5 ABG Methemoglobin 0.8 ABG O2 Capacity 16.6 Jim Test Yes A-a O2 Difference 132.0 Hgb O2 Saturation 96.4 Vent Mode A/c pc Mechanical Rate 12 FiO2 40.0 PEEP 5 Sodium 140 142 Potassium 4.5 4.6 Chloride 107 105 Carbon Dioxide 26 30 Anion Gap 12 12 BUN 34 H 40 H Creatinine 1.2 1.4 Est GFR ( Amer) > 60 > 60 Est GFR (Non-Af Amer) > 60 53 Random Glucose 265 H 236 H Calcium 8.1 L 8.3 L Total Bilirubin 1.0 AST 51 ALT 53 Alkaline Phosphatase 220 H NT-Pro-B Natriuret Pep 7040 H Total Protein 6.3 Albumin 2.4 L Globulin 3.8 Albumin/Globulin Ratio 0.6 L Fingerstick Blood Sugar Results: 146 Assessment/Plan - Assessment and Plan (Free Text) Assessment: A/P Respiratory failure, aspiration pneumonia, seizer disorder, ETOH abuse, pleural effusion, CHF, crohn's disease, ARF, thrombocytopenia, hepatic encephalopathy - Ventilatory support - weaning as tolerated - Pulmonary toilets - Antibiotics - OG tube feeding - GI follow up - Continue meds Critical care 40 min
--- NOTE | 2016-09-24 08:24 | PN ---
DATE: 09/24/2016 The patient seen and examined. The patient is seen for Dr. Ellison while he is away. The patient nigel ins in intensive care unit on ventilator. The patient is awake, responsive, orally intubated, not ab le to provide informative history or review of systems. PHYSICAL EXAMINATION: GENERAL: The patient is orally intubated on mechanical ventilation via endotracheal tube, tolerating current setting without any acute respiratory distress. VITAL SIGNS: Stable. HEART: S1, S2 normal, regular. LUNGS: Good bilateral air exchange. ABDOMEN: Soft, nontender. EXTREMITIES: No calf swelling, no tenderness, no acute ischemia. CENTRAL NERVOUS SYSTEM: Essentially unchanged. DIAGNOSTIC DATA: Available diagnostic data reviewed. Telemetry monitoring does not reveal significa nt arrhythmias. Multiple consults noted and appreciated. The patient is for tracheostomy and PEG for next week. PLAN: As ordered. The patient's general condition remains critical. Kal Rogel MD cc: [id number] TT: 09/24/2016 08:23:35 Confirmation # [id number] Dictation # [id number]
[2016-09-24] MEDS: Albuterol 0.083% Inhal Sol (2.5 mg/3 mL) UD INH SCH ×4 (08:51→19:54)
--- NOTE | 2016-09-24 09:47 | CP.PCM.PN ---
Subjective - Date & Time of Evaluation Date of Evaluation: 09/24/16 Time of Evaluation: 09:47 - Subjective Subjective: Gen Surg: Dr Vergara Pt S&E in ICU. Remains intubated and sedated. No change in current condition. Tentatively booked for trach on monday, pending PLT and INR are corrected. Also pending cardiology clearance. Objective - Vital Signs/Intake and Output Vital Signs (last 24 hours): Temp Pulse Resp BP Pulse Ox 99.2 F 71 17 131/88 99 09/24/16 08:00 09/24/16 08:00 09/24/16 08:00 09/24/16 08:00 09/24/16 08:00 Intake and Output: 09/24/16 09/24/16 06:59 18:59 Intake Total 1534 Output Total 1250 Balance 284 - Medications Medications: Current Medications Acetaminophen (Tylenol 650mg/20.3ml Solution Ud) 650 mg PO Q6 PRN PRN Reason: Fever >100.4 F Last Admin: 09/15/16 01:19 Dose: 650 mg Albuterol Sulfate (Albuterol 0.083% Inhal Madelin (2.5 Mg/3 Ml) Ud) 2.5 mg INH RQID [facility] Last Admin: 09/24/16 08:51 Dose: 2.5 mg Amiodarone HCl (Cordarone) 200 mg PO BID [facility] Last Admin: 09/24/16 09:07 Dose: 200 mg Carvedilol (Coreg) 3.125 mg PO Q12 [facility] Last Admin: 09/24/16 09:06 Dose: 3.125 mg Piperacillin Sod/Tazobactam (Sod 2.25 gm/ Sodium Chloride) 100 mls @ 100 mls/ hr IVPB Q6 [facility] Last Admin: 09/24/16 09:15 Dose: 100 mls/hr Levetiracetam 500 mg/ Sodium (Chloride) 55 mls @ 110 mls/hr IVPB Q12 [facility] Last Admin: 09/24/16 09:15 Dose: 110 mls/hr Dexmedetomidine HCl 400 mcg/ (Sodium Chloride) 100 mls @ 4.6 mls/hr IV .[id number] [facility]; 0.2 MCG/KG/HR PRN Reason: Protocol Last Titration: 09/24/16 09:14 Dose: 1 mcg/kg/hr Lactulose (Enulose) 20 gm PO DAILY [facility] Last Admin: 09/24/16 09:06 Dose: 20 gm Pantoprazole Sodium (Protonix Inj) 40 mg IVP DAILY [facility] Last Admin: 09/24/16 09:06 Dose: 40 mg Quetiapine Fumarate (Seroquel) 50 mg PO Q8H [facility] Last Admin: 09/24/16 06:54 Dose: 50 mg Rifaximin (Xifaxan) 550 mg PO BID [facility] Last Admin: 09/24/16 09:06 Dose: 550 mg Spironolactone (Aldactone) 50 mg PO DAILY [facility] Last Admin: 09/23/16 08:44 Dose: 50 mg - Labs Labs: 09/24/16 06:02 09/24/16 06:02 PT 13.1 SECONDS (9.6-11.2) H 09/24/16 06:02 INR 1.26 (0.92-1.08) H 09/24/16 06:02 APTT 23.3 SECONDS (23.3-32.5) 09/24/16 06:02 - Constitutional Appears: Chronically Ill - Respiratory Exam Respiratory Exam: absent: Accessory Muscle Use, Respiratory Distress - Cardiovascular Exam Cardiovascular Exam: REGULAR RHYTHM Assessment and Plan - Assessment and Plan (Free Text) Assessment: 51M w/ respiratory failure Plan: as above, trach planned tentatively for monday will need cardio clearance PLTT/INR correction. Will order platelets night before if INR is normalized will d/w Dr Ursula Mccollum, PGY2
--- NOTE | 2016-09-24 11:18 | CP.CCUPN ---
CCU Subjective - Physician Review Events Since Last Encounter (Free Text): 09/24/16 11:15 Patient self extubated, put on O2 supplement by mask, tolerating well CCU Objective - Vital Signs / Intake & Output Vital Signs (Last 4 hours): Vital Signs Temp Pulse Resp BP Pulse Ox 09/24/16 08:00 99.2 F 71 17 131/88 99 Intake and Output (Last 8hrs): Intake & Output 09/23/16 09/24/16 09/24/16 22:59 06:59 14:59 Intake Total 1310 752 Output Total 1450 1250 Balance -140 -498 Intake: IV 46 52 Intake, Piggyback 264 100 Oral 150 Tube Feeding 750 600 Free Water Flush 100 Output: Urine 1400 1250 Urethral ([place]) 1400 1250 Stool 50 Other: # Bowel Movements 1 - Physical Exam Head: Positive for: Atraumatic, Normocephalic Pupils: Positive for: PERRL. Negative for: Sluggish, Non-Reactive Extroacular Muscles: Positive for: EOMI Conjunctiva: Positive for: Normal. Negative for: Injected, Icteric Mouth: Positive for: Dry Pharnyx: Positive for: Other Nose (External): Negative for: Abrasion Nose (Internal): Positive for: Normal Inspection Neck: Positive for: Trachea Midline. Negative for: JVD, Lymphadenopathy, Bruit Respiratory/Chest: Positive for: Good Air Exchange. Negative for: Wheezes Cardiovascular: Positive for: Regular Rate and Rhythm, Normal S1, S2, Peripheal Pulses Present. Negative for: Murmurs Abdomen: Positive for: Normal Bowel Sounds. Negative for: Tenderness, Distention, Peritoneal Signs, Guarding Upper Extremity: Positive for: Normal Inspection, NORMAL PULSES. Negative for: Cyanosis, Edema Lower Extremity: Positive for: Normal Inspection, NORMAL PULSES. Negative for: Edema, CALF TENDERNESS Skin: Positive for: Warm, Dry, Normal Color. Negative for: Rashes - Medications Active Medications: Active Medications Generic Name Dose Route Start Last Admin Trade Name Freq PRN Reason Stop Dose Admin Acetaminophen 650 mg 09/10/16 02:44 09/15/16 01:19 Tylenol 650mg/20.3ml Solution Ud PO 650 mg Q6 PRN Administration Fever >100.4 F Albuterol Sulfate 2.5 mg 09/17/16 12:00 09/24/16 08:51 Albuterol 0.083% Inhal Madelin (2.5 Mg/3 Ml) Ud INH 2.5 mg RQID [facility] Administration Amiodarone HCl 200 mg 09/16/16 09:30 09/24/16 09:07 Cordarone PO 200 mg BID [facility] Administration Carvedilol 3.125 mg 09/14/16 11:30 09/24/16 09:06 Coreg PO 3.125 mg Q12 [facility] Administration Piperacillin Sod/Tazobactam 100 mls @ 100 mls/hr 09/20/16 16:00 09/24/16 09:15 Sod 2.25 gm/ Sodium Chloride IVPB 100 mls/hr Q6 [facility] Administration Levetiracetam 500 mg/ Sodium 55 mls @ 110 mls/hr 09/23/16 21:00 09/24/16 09:15 Chloride IVPB 110 mls/hr Q12 [facility] Administration Dexmedetomidine HCl 400 mcg/ 100 mls @ 4.6 mls/hr 09/23/16 11:09 09/24/16 09:14 Sodium Chloride IV 1 mcg/kg/hr .[id number] [facility] Titration Protocol 0.2 MCG/KG/HR Lactulose 20 gm 09/13/16 11:25 09/24/16 09:06 Enulose PO 20 gm DAILY [facility] Administration Pantoprazole Sodium 40 mg 09/19/16 10:45 09/24/16 09:06 Protonix Inj IVP 40 mg DAILY [facility] Administration Quetiapine Fumarate 50 mg 09/22/16 14:00 09/24/16 06:54 Seroquel PO 50 mg Q8H [facility] Administration Rifaximin 550 mg 09/19/16 17:00 09/24/16 09:06 Xifaxan PO 550 mg BID [facility] Administration Spironolactone 50 mg 09/14/16 11:15 09/23/16 08:44 Aldactone PO 50 mg DAILY [facility] Administration - Patient Studies Lab Studies: Lab Studies 09/24/16 09/24/16 09/23/16 Range/Units 06:02 04:00 09:30 WBC 6.5 (4.8-10.8) K/uL RBC 3.91 L (4.40-5.90) Mil/uL Hgb 11.9 L (12.0-18.0) g/dL Hct 36.2 (35.0-51.0) % MCV 92.8 (80.0-94.0) fl MCH 30.4 (27.0-31.0) pg MCHC 32.8 L (33.0-37.0) g/dL RDW 14.9 H (11.5-14.5) % Plt Count 61 L (130-400) K/uL MPV 12.0 H (7.2-11.7) fl Neut % (Auto) 89.7 H (50.0-75.0) % Lymph % (Auto) 3.6 L (20.0-40.0) % [place] % (Auto) 6.6 (0.0-10.0) % Eos % (Auto) 0.0 (0.0-4.0) % Baso % (Auto) 0.1 (0.0-2.0) % Neut # 5.9 (1.8-7.0) K/uL Lymph # 0.2 L (1.0-4.3) K/uL [place] # 0.4 (0.0-0.8) K/uL Eos # 0.0 (0.0-0.7) K/uL Baso # 0.0 (0.0-0.2) K/uL Neutrophils % (Manual) 92 H (42-75) % Band Neutrophils % 2 (0-2) % Lymphocytes % (Manual) 4 L (20-50) % Monocytes % (Manual) 2 (0-10) % Platelet Estimate Decreased L (NORMAL) Giant Platelets Present RBC Morphology Normal (NORMAL) PT 13.1 H (9.6-11.2) SECONDS INR 1.26 H (0.92-1.08) APTT 23.3 (23.3-32.5) SECONDS pCO2 45 (35-45) mm/Hg pO2 97 (80-100) mm/Hg HCO3 29.4 H (21-28) mmol/L ABG pH 7.44 (7.35-7.45) ABG Total CO2 32.0 H (22-28) mmol/L ABG O2 Saturation 98.5 H (95-98) % ABG O2 Content 16.4 (15-23) ML/dL ABG Base Excess 5.7 H (-2.0-3.0) mmol/L ABG Hemoglobin 12.0 (11.7-17.4) g/dL ABG Carboxyhemoglobin 1.4 (0.5-1.5) % POC ABG HHb (Measured) 1.5 (0.0-5.0) % ABG Methemoglobin 0.8 (0.0-3.0) % ABG O2 Capacity 16.6 (16-24) mL/dL Jim Test Yes A-a O2 Difference 132.0 mm/Hg Hgb O2 Saturation 96.4 (95.0-98.0) % Vent Mode A/c pc Mechanical Rate 12 FiO2 40.0 % PEEP 5 Sodium 142 (132-148) mmol/l Potassium 4.6 (3.6-5.0) MMOL/L Chloride 105 (98-107) mmol/L Carbon Dioxide 30 (22-30) mmol/L Anion Gap 12 (10-20) BUN 40 H (9-20) mg/dl Creatinine 1.4 (0.8-1.5) mg/dL Est GFR ( Amer) > 60 Est GFR (Non-Af Amer) 53 Random Glucose 236 H (75-110) mg/dL Calcium 8.3 L (8.4-10.2) mg/dL NT-Pro-B Natriuret Pep 7040 H (0-900) pg/ml Laboratory Results - last 24 hr 09/23/16 09/24/16 09/24/16 09:30 04:00 06:02 WBC 6.5 RBC 3.91 L Hgb 11.9 L Hct 36.2 MCV 92.8 MCH 30.4 MCHC 32.8 L RDW 14.9 H Plt Count 61 L MPV 12.0 H Neut % (Auto) 89.7 H Lymph % (Auto) 3.6 L [place] % (Auto) 6.6 Eos % (Auto) 0.0 Baso % (Auto) 0.1 Neut # 5.9 Lymph # 0.2 L [place] # 0.4 Eos # 0.0 Baso # 0.0 Neutrophils % (Manual) 92 H Band Neutrophils % 2 Lymphocytes % (Manual) 4 L Monocytes % (Manual) 2 Platelet Estimate Decreased L Giant Platelets Present RBC Morphology Normal PT 13.1 H INR 1.26 H APTT 23.3 pCO2 45 pO2 97 HCO3 29.4 H ABG pH 7.44 ABG Total CO2 32.0 H ABG O2 Saturation 98.5 H ABG O2 Content 16.4 ABG Base Excess 5.7 H ABG Hemoglobin 12.0 ABG Carboxyhemoglobin 1.4 POC ABG HHb (Measured) 1.5 ABG Methemoglobin 0.8 ABG O2 Capacity 16.6 Jim Test Yes A-a O2 Difference 132.0 Hgb O2 Saturation 96.4 Vent Mode A/c pc Mechanical Rate 12 FiO2 40.0 PEEP 5 Sodium 142 Potassium 4.6 Chloride 105 Carbon Dioxide 30 Anion Gap 12 BUN 40 H Creatinine 1.4 Est GFR ( Amer) > 60 Est GFR (Non-Af Amer) 53 Random Glucose 236 H Calcium 8.3 L NT-Pro-B Natriuret Pep 7040 H Fingerstick Blood Sugar Results: 146
--- NOTE | 2016-09-24 15:05 | CP.PCM.PN ---
Subjective - Date & Time of Evaluation Date of Evaluation: 09/24/16 Time of Evaluation: 14:00 - Subjective Subjective: Covering Dr. Turner Pt confused ET tube pulled today Objective - Vital Signs/Intake and Output Vital Signs (last 24 hours): Temp Pulse Resp BP Pulse Ox 98.4 F 67 14 136/88 97 09/24/16 12:00 09/24/16 14:00 09/24/16 14:00 09/24/16 14:00 09/24/16 14:00 Intake and Output: 09/24/16 09/24/16 06:59 18:59 Intake Total 1534 806 Output Total 1250 Balance 284 806 - Medications Medications: Current Medications Acetaminophen (Tylenol 650mg/20.3ml Solution Ud) 650 mg PO Q6 PRN PRN Reason: Fever >100.4 F Last Admin: 09/15/16 01:19 Dose: 650 mg Albuterol Sulfate (Albuterol 0.083% Inhal Madelin (2.5 Mg/3 Ml) Ud) 2.5 mg INH RQID [facility] Last Admin: 09/24/16 11:32 Dose: 2.5 mg Amiodarone HCl (Cordarone) 200 mg PO BID [facility] Last Admin: 09/24/16 09:07 Dose: 200 mg Carvedilol (Coreg) 3.125 mg PO Q12 [facility] Last Admin: 09/24/16 09:06 Dose: 3.125 mg Piperacillin Sod/Tazobactam (Sod 2.25 gm/ Sodium Chloride) 100 mls @ 100 mls/ hr IVPB Q6 [facility] Last Admin: 09/24/16 09:15 Dose: 100 mls/hr Levetiracetam 500 mg/ Sodium (Chloride) 55 mls @ 110 mls/hr IVPB Q12 [facility] Last Admin: 09/24/16 09:15 Dose: 110 mls/hr Dexmedetomidine HCl 400 mcg/ (Sodium Chloride) 100 mls @ 4.6 mls/hr IV .[id number] [facility]; 0.2 MCG/KG/HR PRN Reason: Protocol Last Titration: 09/24/16 14:00 Dose: 1.3 mcg/kg/hr Lactulose (Enulose) 20 gm PO DAILY [facility] Last Admin: 09/24/16 09:06 Dose: 20 gm Pantoprazole Sodium (Protonix Inj) 40 mg IVP DAILY [facility] Last Admin: 09/24/16 09:06 Dose: 40 mg Quetiapine Fumarate (Seroquel) 50 mg PO Q8H [facility] Last Admin: 09/24/16 14:23 Dose: Not Given Rifaximin (Xifaxan) 550 mg PO BID [facility] Last Admin: 09/24/16 09:06 Dose: 550 mg Spironolactone (Aldactone) 50 mg PO DAILY [facility] Last Admin: 09/24/16 12:05 Dose: Not Given - Labs Labs: 09/24/16 06:02 09/24/16 06:02 PT 13.1 SECONDS (9.6-11.2) H 09/24/16 06:02 INR 1.26 (0.92-1.08) H 09/24/16 06:02 APTT 23.3 SECONDS (23.3-32.5) 09/24/16 06:02 - Head Exam Head Exam: ATRAUMATIC - Eye Exam Eye Exam: Normal appearance - ENT Exam ENT Exam: Mucous Membranes Dry - Respiratory Exam Respiratory Exam: NORMAL BREATHING PATTERN - Cardiovascular Exam Cardiovascular Exam: +S1, +S2 - GI/Abdominal Exam GI & Abdominal Exam: Normal Bowel Sounds - Extremities Exam Extremities Exam: Pedal Edema Assessment and Plan (1) Thrombocytopenia Assessment & Plan: chronic since 2013 imaging suggestive of liver cirrhosis; likely etiology of thrombocytopenia may be exacerbated by polypharmacy, infection, acute illness transfusion support not currently required but can be considered for surgical procedures if functional plt < 50,000 Status: Acute (2) Anemia Assessment & Plan: mild, improving Status: Acute
--- NOTE | 2016-09-24 19:40 | CP.PCM.PN ---
Subjective - Date & Time of Evaluation Date of Evaluation: 09/24/16 Time of Evaluation: 19:38 - Subjective Subjective: Patient self extubated, put on O2 supplement by mask, chems ok bun 40 creat 1.4 142/4.6/105/30 a little aggitated. Objective - Vital Signs/Intake and Output Vital Signs (last 24 hours): Temp Pulse Resp BP Pulse Ox 98.2 F 67 14 157/96 H 96 09/24/16 16:00 09/24/16 18:00 09/24/16 18:00 09/24/16 18:00 09/24/16 18:00 Intake and Output: 09/24/16 09/25/16 18:59 06:59 Intake Total 940 Output Total 1600 Balance -660 - Medications Medications: Current Medications Acetaminophen (Tylenol 650mg/20.3ml Solution Ud) 650 mg PO Q6 PRN PRN Reason: Fever >100.4 F Last Admin: 09/15/16 01:19 Dose: 650 mg Albuterol Sulfate (Albuterol 0.083% Inhal Madelin (2.5 Mg/3 Ml) Ud) 2.5 mg INH RQID [facility] Last Admin: 09/24/16 16:24 Dose: 2.5 mg Amiodarone HCl (Cordarone) 200 mg PO BID [facility] Last Admin: 09/24/16 16:01 Dose: Not Given Carvedilol (Coreg) 3.125 mg PO Q12 [facility] Last Admin: 09/24/16 09:06 Dose: 3.125 mg Piperacillin Sod/Tazobactam (Sod 2.25 gm/ Sodium Chloride) 100 mls @ 100 mls/ hr IVPB Q6 [facility] Last Admin: 09/24/16 16:00 Dose: 100 mls/hr Levetiracetam 500 mg/ Sodium (Chloride) 55 mls @ 110 mls/hr IVPB Q12 [facility] Last Admin: 09/24/16 09:15 Dose: 110 mls/hr Dexmedetomidine HCl 400 mcg/ (Sodium Chloride) 100 mls @ 4.6 mls/hr IV .[id number] CORTNEY; 0.2 MCG/KG/HR PRN Reason: Protocol Last Admin: 09/24/16 16:55 Dose: 34.52 mls/hr Lactulose (Enulose) 20 gm PO DAILY [facility] Last Admin: 09/24/16 09:06 Dose: 20 gm Pantoprazole Sodium (Protonix Inj) 40 mg IVP DAILY [facility] Last Admin: 09/24/16 09:06 Dose: 40 mg Quetiapine Fumarate (Seroquel) 50 mg PO Q8H [facility] Last Admin: 09/24/16 14:23 Dose: Not Given Rifaximin (Xifaxan) 550 mg PO BID [facility] Last Admin: 09/24/16 16:01 Dose: Not Given Spironolactone (Aldactone) 50 mg PO DAILY [facility] Last Admin: 09/24/16 12:05 Dose: Not Given - Labs Labs: 09/24/16 06:02 09/24/16 06:02 PT 13.1 SECONDS (9.6-11.2) H 09/24/16 06:02 INR 1.26 (0.92-1.08) H 09/24/16 06:02 APTT 23.3 SECONDS (23.3-32.5) 09/24/16 06:02 - Constitutional Appears: Non-toxic - Head Exam Head Exam: NORMAL INSPECTION - Eye Exam Eye Exam: Normal appearance - ENT Exam ENT Exam: Mucous Membranes Dry, Mucous Membranes Moist - Respiratory Exam Respiratory Exam: NORMAL BREATHING PATTERN - Cardiovascular Exam Cardiovascular Exam: REGULAR RHYTHM - GI/Abdominal Exam GI & Abdominal Exam: Soft - Extremities Exam Extremities Exam: Normal Inspection - Neurological Exam Neurological Exam: Alert, Awake - Psychiatric Exam Psychiatric exam: Agitated - Skin Skin Exam: Dry, Warm Assessment and Plan - Assessment and Plan (Free Text) Assessment: miguel/ckd stable Plan: serial chems
[2016-09-25] MEDS: Dexmedetomidine Hydrochloride 400 MCG in Sodium Chloride 0.9% 96 ML IV SCH ×2 (02:00→05:26)
[2016-09-25 05:28] LABS: ABG ALLEN TEST YES; ARTERIAL BLOOD GAS HCO3 30.6 mmol/L (21-28); ARTERIAL BLOOD GAS MODE VENTURI MASK; ARTERIAL BLOOD GAS O2 CAPACITY 15.7 mL/dL (16-24); ARTERIAL BLOOD GAS O2 CONTENT 14.8 ML/dL (15-23); ARTERIAL BLOOD GAS PH 7.44 (7.35-7.45); ARTERIAL BLOOD GAS PO2 64 mm/Hg (80-100); ARTERIAL BLOOD HGB O2 SAT 91.9 % (95.0-98.0); CARBOXYHEMOGLOBIN 1.8 % (0.5-1.5); HHB 5.5 % (0.0-5.0); METHEMOGLOBIN 0.8 % (0.0-3.0)
--- NOTE | 2016-09-25 07:30 | CP.CCUPN ---
CCU Subjective - Physician Review Events Since Last Encounter (Free Text): 09/25/16 07:28 Patient awake, on O2 supplement by face mask, no distress, no vomiting, move all extremities, no presssors, events reviewed CCU Objective - Vital Signs / Intake & Output Intake and Output (Last 8hrs): Intake & Output 09/24/16 09/25/16 09/25/16 22:59 06:59 14:59 Intake Total 420 136 Output Total 2125 570 Balance -1705 -434 Intake: IV 270 136 Intake, Piggyback 150 Output: Urine 2125 570 Urethral ([place]) 2125 570 - Physical Exam Head: Positive for: Atraumatic, Normocephalic Pupils: Positive for: PERRL. Negative for: Sluggish, Non-Reactive Extroacular Muscles: Positive for: EOMI Conjunctiva: Positive for: Normal. Negative for: Injected, Icteric Mouth: Positive for: Dry Pharnyx: Positive for: Normal Nose (External): Negative for: Abrasion Nose (Internal): Positive for: Normal Inspection Neck: Positive for: Normal Range of Motion, Trachea Midline. Negative for: JVD , Lymphadenopathy, Bruit Respiratory/Chest: Positive for: Good Air Exchange. Negative for: Wheezes Cardiovascular: Positive for: Regular Rate and Rhythm, Normal S1, S2, Peripheal Pulses Present. Negative for: Murmurs Abdomen: Positive for: Normal Bowel Sounds. Negative for: Tenderness, Distention, Peritoneal Signs, Guarding Upper Extremity: Positive for: Normal Inspection, NORMAL PULSES. Negative for: Cyanosis, Edema Lower Extremity: Positive for: Normal Inspection, NORMAL PULSES. Negative for: Edema, CALF TENDERNESS Skin: Positive for: Warm, Dry, Normal Color. Negative for: Rashes Psychiatric: Positive for: Alert - Medications Active Medications: Active Medications Generic Name Dose Route Start Last Admin Trade Name Freq PRN Reason Stop Dose Admin Acetaminophen 650 mg 09/10/16 02:44 09/15/16 01:19 Tylenol 650mg/20.3ml Solution Ud PO 650 mg Q6 PRN Administration Fever >100.4 F Albuterol Sulfate 2.5 mg 09/17/16 12:00 09/24/16 19:54 Albuterol 0.083% Inhal Madelin (2.5 Mg/3 Ml) Ud INH 2.5 mg RQID [facility] Administration Amiodarone HCl 200 mg 09/16/16 09:30 09/24/16 16:01 Cordarone PO Not Given BID [facility] Carvedilol 3.125 mg 09/14/16 11:30 09/24/16 21:09 Coreg PO Not Given Q12 [facility] Piperacillin Sod/Tazobactam 100 mls @ 100 mls/hr 09/20/16 16:00 09/25/16 05:00 Sod 2.25 gm/ Sodium Chloride IVPB 100 mls/hr Q6 [facility] Administration Dexmedetomidine HCl 400 mcg/ 100 mls @ 4.6 mls/hr 09/23/16 11:09 09/25/16 05:26 Sodium Chloride IV 34.52 mls/hr .[id number] [facility] Administration Protocol 0.2 MCG/KG/HR Levetiracetam 500 mg/ Sodium 105 mls @ 210 mls/hr 09/25/16 09:00 Chloride IVPB Q12 [facility] Lactulose 20 gm 09/13/16 11:25 09/24/16 09:06 Enulose PO 20 gm DAILY [facility] Administration Pantoprazole Sodium 40 mg 09/19/16 10:45 09/24/16 09:06 Protonix Inj IVP 40 mg DAILY [facility] Administration Quetiapine Fumarate 50 mg 09/22/16 14:00 09/24/16 21:10 Seroquel PO Not Given Q8H [facility] Rifaximin 550 mg 09/19/16 17:00 09/24/16 16:01 Xifaxan PO Not Given BID [facility] Spironolactone 50 mg 09/14/16 11:15 09/24/16 12:05 Aldactone PO Not Given DAILY [facility] - Patient Studies Lab Studies: Lab Studies 09/25/16 Range/Units 05:15 pCO2 48 H (35-45) mm/Hg pO2 64 L (80-100) mm/Hg HCO3 30.6 H (21-28) mmol/L ABG pH 7.44 (7.35-7.45) ABG Total CO2 34.1 H (22-28) mmol/L ABG O2 Saturation 94.4 L (95-98) % ABG O2 Content 14.8 L (15-23) ML/dL ABG Base Excess 7.4 H (-2.0-3.0) mmol/L ABG Hemoglobin 11.4 L (11.7-17.4) g/dL ABG Carboxyhemoglobin 1.8 H (0.5-1.5) % POC ABG HHb (Measured) 5.5 H (0.0-5.0) % ABG Methemoglobin 0.8 (0.0-3.0) % ABG O2 Capacity 15.7 L (16-24) mL/dL Jim Test Yes A-a O2 Difference 161.0 mm/Hg Hgb O2 Saturation 91.9 L (95.0-98.0) % Vent Mode Venturi mask FiO2 40.0 % Laboratory Results - last 24 hr 09/25/16 05:15 pCO2 48 H pO2 64 L HCO3 30.6 H ABG pH 7.44 ABG Total CO2 34.1 H ABG O2 Saturation 94.4 L ABG O2 Content 14.8 L ABG Base Excess 7.4 H ABG Hemoglobin 11.4 L ABG Carboxyhemoglobin 1.8 H POC ABG HHb (Measured) 5.5 H ABG Methemoglobin 0.8 ABG O2 Capacity 15.7 L Jim Test Yes A-a O2 Difference 161.0 Hgb O2 Saturation 91.9 L Vent Mode Venturi mask FiO2 40.0 Fingerstick Blood Sugar Results: 146 Assessment/Plan - Assessment and Plan (Free Text) Assessment: A/P Respiratory failure improved, aspiration pneumonia, seizer disorder, ETOH abuse , pleural effusion, CHF, crohn's disease, ARF, thrombocytopenia, hepatic encephalopathy - O2 supplement - Pulmonary toilets - Antibiotics - GI follow up - Continue meds Critical care 35 min
[2016-09-25] MEDS: Albuterol 0.083% Inhal Sol (2.5 mg/3 mL) UD INH SCH ×4 (07:45→19:50)
[2016-09-25 07:48] LABS: BASO % 0.1 % (0.0-2.0); EOS % 0.5 % (0.0-4.0); HEMATOCRIT 35.4 % (35.0-51.0); LYMPH # 0.5 K/uL (1.0-4.3); LYMPH % 8.7 % (20.0-40.0); MEAN CELL VOLUME 92.9 fl (80.0-94.0); MEAN CORPUSCULAR HEMOGLOBIN 30.2 pg (27.0-31.0); MEAN CORPUSCULAR HGB CONC 32.5 g/dL (33.0-37.0); MEAN PLATELET VOLUME 11.6 fl (7.2-11.7); MONO # 0.4 K/uL (0.0-0.8); MONO % 7.8 % (0.0-10.0); NEUT # 4.4 K/uL (1.8-7.0); NEUT % 82.9 % (50.0-75.0); RED CELL DISTRIBUTION WIDTH 14.6 % (11.5-14.5); WHITE BLOOD COUNT 5.3 K/uL (4.8-10.8)
[2016-09-25 08:01] LABS: ALB/GLOB RATIO 0.7 (1.0-2.1); ALKALINE PHOSPHATASE 229 U/L (38-126); ALT/SGPT 86 U/L (21-72); AST/SGOT 101 U/L (17-59); BILIRUBIN,TOTAL 1.6 mg/dl (0.2-1.3); BLOOD UREA NITROGEN 32 mg/dl (9-20); CALCIUM 8.5 mg/dL (8.4-10.2); CARBON DIOXIDE 30 mmol/L (22-30); CHLORIDE 105 mmol/L (98-107); GFR AFRICAN-AMERICAN > 60; GLUCOSE,RANDOM 191 mg/dL (75-110); POTASSIUM 4.1 MMOL/L (3.6-5.0); SODIUM 142 mmol/l (132-148); TOTAL PROTEIN 6.9 G/DL (6.3-8.2)
--- NOTE | 2016-09-25 09:24 | CP.PCM.PN ---
<Peña Andrews - Last Filed: 09/25/16 09:25> Subjective - Date & Time of Evaluation Date of Evaluation: 09/25/16 Time of Evaluation: 07:00 - Subjective Subjective: Gen Surg: Dr. Vergara Pt S&E this AM. Pt self-extubated yesterday morning. Remains confused, not oriented to place nor time. Pt O2 sat at time of examination 97% on NC. Objective - Vital Signs/Intake and Output Vital Signs (last 24 hours): Temp Pulse Resp BP Pulse Ox 97.6 F 71 18 152/89 H 91 L 09/25/16 04:00 09/25/16 06:00 09/25/16 06:00 09/25/16 06:00 09/25/16 06:00 Intake and Output: 09/25/16 09/25/16 06:59 18:59 Intake Total 658 Output Total 1580 Balance -922 - Medications Medications: Current Medications Acetaminophen (Tylenol 650mg/20.3ml Solution Ud) 650 mg PO Q6 PRN PRN Reason: Fever >100.4 F Last Admin: 09/15/16 01:19 Dose: 650 mg Albuterol Sulfate (Albuterol 0.083% Inhal Madelin (2.5 Mg/3 Ml) Ud) 2.5 mg INH RQID [facility] Last Admin: 09/24/16 19:54 Dose: 2.5 mg Amiodarone HCl (Cordarone) 200 mg PO BID [facility] Last Admin: 09/24/16 16:01 Dose: Not Given Carvedilol (Coreg) 3.125 mg PO Q12 [facility] Last Admin: 09/24/16 21:09 Dose: Not Given Piperacillin Sod/Tazobactam (Sod 2.25 gm/ Sodium Chloride) 100 mls @ 100 mls/ hr IVPB Q6 [facility] Last Admin: 09/25/16 05:00 Dose: 100 mls/hr Dexmedetomidine HCl 400 mcg/ (Sodium Chloride) 100 mls @ 4.6 mls/hr IV .[id number] [facility]; 0.2 MCG/KG/HR PRN Reason: Protocol Last Admin: 09/25/16 05:26 Dose: 34.52 mls/hr Levetiracetam 500 mg/ Sodium (Chloride) 105 mls @ 210 mls/hr IVPB Q12 [facility] Lactulose (Enulose) 20 gm PO DAILY [facility] Last Admin: 09/24/16 09:06 Dose: 20 gm Pantoprazole Sodium (Protonix Inj) 40 mg IVP DAILY [facility] Last Admin: 09/25/16 08:40 Dose: 40 mg Quetiapine Fumarate (Seroquel) 50 mg PO Q8H [facility] Last Admin: 09/24/16 21:10 Dose: Not Given Rifaximin (Xifaxan) 550 mg PO BID [facility] Last Admin: 09/24/16 16:01 Dose: Not Given Spironolactone (Aldactone) 50 mg PO DAILY [facility] Last Admin: 09/24/16 12:05 Dose: Not Given - Labs Labs: 09/25/16 06:00 09/25/16 06:00 PT 13.1 SECONDS (9.6-11.2) H 09/24/16 06:02 INR 1.26 (0.92-1.08) H 09/24/16 06:02 APTT 23.3 SECONDS (23.3-32.5) 09/24/16 06:02 - Constitutional Appears: No Acute Distress - Head Exam Head Exam: NORMOCEPHALIC - Eye Exam Eye Exam: Normal appearance - ENT Exam ENT Exam: Mucous Membranes Moist - Respiratory Exam Respiratory Exam: NORMAL BREATHING PATTERN - Cardiovascular Exam Cardiovascular Exam: +S1, +S2 - Neurological Exam Neurological Exam: Alert, Awake. absent: Oriented x3 - Psychiatric Exam Psychiatric exam: Agitated - Skin Skin Exam: Dry, Warm Assessment and Plan - Assessment and Plan (Free Text) Assessment: 51M w/ respiratory failure, self extubated yesterday AM, currently on nasal cannula Originally trach was planned tentatively for Monday. Case to be cancelled if patient remains extubated. Platelets today are 45. -Further recs per Dr. Vergara <Roosevelt Vergara - Last Filed: 09/25/16 15:00> Subjective - Date & Time of Evaluation Date of Evaluation: 09/25/16 Time of Evaluation: 14:00 - Subjective Subjective: Patient was seen at the bedside. Agree with resident's note above. Objective - Vital Signs/Intake and Output Vital Signs (last 24 hours): Temp Pulse Resp BP Pulse Ox 98.5 F 82 23 155/86 H 83 L 09/25/16 12:00 09/25/16 12:00 09/25/16 12:00 09/25/16 12:00 09/25/16 12:00 Intake and Output: 09/25/16 09/25/16 06:59 18:59 Intake Total 658 200 Output Total 1580 Balance -922 200 - Medications Medications: Current Medications Acetaminophen (Tylenol 650mg/20.3ml Solution Ud) 650 mg PO Q6 PRN PRN Reason: Fever >100.4 F Last Admin: 09/15/16 01:19 Dose: 650 mg Albuterol Sulfate (Albuterol 0.083% Inhal Madelin (2.5 Mg/3 Ml) Ud) 2.5 mg INH RQID [facility] Last Admin: 09/25/16 11:47 Dose: 2.5 mg Amiodarone HCl (Cordarone) 200 mg PO BID [facility] Last Admin: 09/25/16 12:35 Dose: Not Given Carvedilol (Coreg) 3.125 mg PO Q12 [facility] Last Admin: 09/25/16 12:35 Dose: Not Given Piperacillin Sod/Tazobactam (Sod 2.25 gm/ Sodium Chloride) 100 mls @ 100 mls/ hr IVPB Q6 [facility] Last Admin: 09/25/16 09:29 Dose: 100 mls/hr Dexmedetomidine HCl 400 mcg/ (Sodium Chloride) 100 mls @ 4.6 mls/hr IV .[id number] [facility]; 0.2 MCG/KG/HR PRN Reason: Protocol Last Admin: 09/25/16 05:26 Dose: 34.52 mls/hr Levetiracetam 500 mg/ Sodium (Chloride) 105 mls @ 210 mls/hr IVPB Q12 [facility] Last Admin: 09/25/16 09:30 Dose: 210 mls/hr Lactulose (Enulose) 20 gm PO DAILY [facility] Last Admin: 09/25/16 12:34 Dose: Not Given Pantoprazole Sodium (Protonix Inj) 40 mg IVP DAILY [facility] Last Admin: 09/25/16 08:40 Dose: 40 mg Quetiapine Fumarate (Seroquel) 50 mg PO Q8H [facility] Last Admin: 09/24/16 21:10 Dose: Not Given Rifaximin (Xifaxan) 550 mg PO BID [facility] Last Admin: 09/25/16 12:34 Dose: Not Given Spironolactone (Aldactone) 50 mg PO DAILY [facility] Last Admin: 09/25/16 12:35 Dose: Not Given - Labs Labs: 09/25/16 06:00 09/25/16 06:00 PT 13.1 SECONDS (9.6-11.2) H 09/24/16 06:02 INR 1.26 (0.92-1.08) H 09/24/16 06:02 APTT 23.3 SECONDS (23.3-32.5) 09/24/16 06:02 Assessment and Plan - Assessment and Plan (Free Text) Plan: - Patient is currently extubated - Will hold off on Tracheostomy in view that patient is extubated - If patient were to go for Tracheostomy he will require Platelet trasfusion and cardiac clearance - Continue care as per ICU and medical teams
[2016-09-25] MEDS: levETIRAcetam 500 MG in Sodium Chloride 0.9% 100 ML IVPB SCH ×2 (09:30→20:32)
--- NOTE | 2016-09-25 09:40 | PN ---
DATE: 09/25/2016 The patient is seen and examined. Interim events noted. Consults noted and appreciated. Intensivis t, intervention noted and appreciated. The patient's surgical consult followup and intervention note d and appreciated. The patient is still extubated yesterday, tolerating well, awake, responsive. Fe els hungry. No chest pain, no shortness of breath. PHYSICAL EXAMINATION: GENERAL: The patient is in no acute distress. VITAL SIGNS: Stable. HEART: S1, S2 normal, regular. LUNGS: Good bilateral air entry. ABDOMEN: Soft, nontender. EXTREMITIES: No edema, no calf swelling, no tenderness, no acute ischemia. CENTRAL NERVOUS SYSTEM: Essentially unchanged. DIAGNOSTIC DATA: Available diagnostic data reviewed. Telemetry monitoring does not reveal significa nt arrhythmias. Overall, the patient's general medical condition is stable, tolerating extubation for now. PLAN: As ordered. Kal Rogel MD cc: [id number] TT: 09/25/2016 09:40:11 Confirmation # [id number] Dictation # [id number] jn
[2016-09-26 05:36] LABS: ALB/GLOB RATIO 0.7 (1.0-2.1); ALKALINE PHOSPHATASE 224 U/L (38-126); ALT/SGPT 84 U/L (21-72); AST/SGOT 92 U/L (17-59); BILIRUBIN,TOTAL 1.8 mg/dl (0.2-1.3); BLOOD UREA NITROGEN 20 mg/dl (9-20); CALCIUM 8.6 mg/dL (8.4-10.2); CARBON DIOXIDE 30 mmol/L (22-30); CHLORIDE 104 mmol/L (98-107); GFR AFRICAN-AMERICAN > 60; GLUCOSE,RANDOM 101 mg/dL (75-110); POTASSIUM 3.7 MMOL/L (3.6-5.0); SODIUM 147 mmol/l (132-148); TOTAL PROTEIN 6.9 G/DL (6.3-8.2)
[2016-09-26 06:01] LABS: BASO % 0.4 % (0.0-2.0); EOS # 0.1 K/uL (0.0-0.7); EOS % 1.5 % (0.0-4.0); HEMATOCRIT 37.5 % (35.0-51.0); LYMPH # 0.7 K/uL (1.0-4.3); LYMPH % 9.3 % (20.0-40.0); MEAN CELL VOLUME 92.2 fl (80.0-94.0); MEAN CORPUSCULAR HEMOGLOBIN 29.9 pg (27.0-31.0); MEAN CORPUSCULAR HGB CONC 32.5 g/dL (33.0-37.0); MONO # 0.6 K/uL (0.0-0.8); MONO % 8.4 % (0.0-10.0); NEUT % 80.4 % (50.0-75.0); NRBC % 0.1 % (0.0-0.0); RED CELL DISTRIBUTION WIDTH 14.9 % (11.5-14.5); WHITE BLOOD COUNT 7.5 K/uL (4.8-10.8)
--- NOTE | 2016-09-26 07:43 | CP.PCM.PN ---
Subjective - Date & Time of Evaluation Date of Evaluation: 09/26/16 Time of Evaluation: 07:42 - Subjective Subjective: Gen Surg: Dr Vergara Pt seen in ICU. Remains extubated, sats 100% on NRB. Trach no longer needed. Surgery signing off. Please reconsult if necessary d/w Dr Ursula Mccollum, PGY2 Objective - Vital Signs/Intake and Output Vital Signs (last 24 hours): Temp Pulse Resp BP Pulse Ox 99.1 F 84 17 148/90 94 L 09/26/16 03:58 09/26/16 06:00 09/26/16 06:00 09/26/16 06:00 09/26/16 06:00 Intake and Output: 09/26/16 09/26/16 06:59 18:59 Intake Total 150 Balance 150 - Medications Medications: Current Medications Acetaminophen (Tylenol 650mg/20.3ml Solution Ud) 650 mg PO Q6 PRN PRN Reason: Fever >100.4 F Last Admin: 09/15/16 01:19 Dose: 650 mg Albuterol Sulfate (Albuterol 0.083% Inhal Madelin (2.5 Mg/3 Ml) Ud) 2.5 mg INH RQID [facility] Last Admin: 09/25/16 19:50 Dose: 2.5 mg Amiodarone HCl (Cordarone) 200 mg PO BID [facility] Last Admin: 09/25/16 16:14 Dose: Not Given Carvedilol (Coreg) 3.125 mg PO Q12 [facility] Last Admin: 09/25/16 21:31 Dose: Not Given Dexmedetomidine HCl 400 mcg/ (Sodium Chloride) 100 mls @ 4.6 mls/hr IV .[id number] [facility]; 0.2 MCG/KG/HR PRN Reason: Protocol Last Admin: 09/25/16 05:26 Dose: 34.52 mls/hr Levetiracetam 500 mg/ Sodium (Chloride) 105 mls @ 210 mls/hr IVPB Q12 [facility] Last Admin: 09/25/16 20:32 Dose: 210 mls/hr Lactulose (Enulose) 20 gm PO DAILY [facility] Last Admin: 09/25/16 12:34 Dose: Not Given Pantoprazole Sodium (Protonix Inj) 40 mg IVP DAILY [facility] Last Admin: 09/25/16 08:40 Dose: 40 mg Quetiapine Fumarate (Seroquel) 50 mg PO Q8H [facility] Last Admin: 09/25/16 21:31 Dose: Not Given Spironolactone (Aldactone) 50 mg PO DAILY [facility] Last Admin: 09/25/16 12:35 Dose: Not Given - Labs Labs: 09/26/16 04:40 09/26/16 04:40 PT 13.1 SECONDS (9.6-11.2) H 09/24/16 06:02 INR 1.26 (0.92-1.08) H 09/24/16 06:02 APTT 23.3 SECONDS (23.3-32.5) 09/24/16 06:02 - Constitutional Appears: No Acute Distress - Respiratory Exam Respiratory Exam: absent: Accessory Muscle Use, Respiratory Distress - Cardiovascular Exam Cardiovascular Exam: REGULAR RHYTHM. absent: Tachycardia
[2016-09-26] MEDS: Albuterol 0.083% Inhal Sol (2.5 mg/3 mL) UD INH SCH ×4 (07:51→20:07)
[2016-09-26] MEDS: levETIRAcetam 500 MG in Sodium Chloride 0.9% 100 ML IVPB SCH ×2 (09:08→20:38)
--- NOTE | 2016-09-26 09:35 | CARD ---
APPROVED REPORT EKG Measurement Heart [id number] [place] [id number] [id number] <Conclusion> Normal sinus rhythm Incomplete left bundle branch block T wave abnormality, consider lateral ischemia Prolonged QT Abnormal ECG
--- NOTE | 2016-09-26 10:08 | PN ---
DATE: 09/26/2016 The patient seen and examined. Interim events noted. Consults noted, appreciated. Pulmonary and in tensivist's intervention noted and appreciated. Case discussed with hardware trainer, ____. The patient feels okay. He is awake, responsive, agitated, demanding. No chest pain, no shortness of breath. PHYSICAL EXAMINATION: GENERAL: The patient is in no acute distress. VITAL SIGNS: Stable. HEART: S1, S2 normal, regular. LUNGS: Good bilateral air exchange. ABDOMEN: Soft, nontender. EXTREMITIES: No calf swelling, no tenderness, no acute ischemia. CENTRAL NERVOUS SYSTEM: Essentially unchanged. DIAGNOSTIC DATA: Available diagnostic data reviewed. Telemetry monitoring does not reveal significa nt arrhythmia. Overall, patient's general medical condition is stable. Requires 1:1 observation for safety. PLAN: As ordered. Kal Rogel MD cc: [id number] TT: 09/26/2016 10:08:00 Confirmation # [id number] Dictation # [id number]
--- NOTE | 2016-09-26 10:24 | CP.PCM.PN ---
Subjective - Date & Time of Evaluation Date of Evaluation: 09/26/16 Time of Evaluation: 10:20 - Subjective Subjective: Extubated, awake, confused and disoriented. Becomes slightly agitated at times. Vital signs and labs have been stable (thrombocytopenic). Remains afebrile. There has been no repeat CXR since he self extubated. No dullness on chest percussion, expands equally. Breath sounds are present bilaterally w/o wheezing. Few rhonchi are present bilaterally, no bronchial breath sounds. SpO2 100% on 2LPM nasal canula. Fairly strong cough w/o audible congestion. No cyanosis. Followup CXR in AM. Swallow eval. Continue aerosol therapy for the present. Objective - Vital Signs/Intake and Output Vital Signs (last 24 hours): Temp Pulse Resp BP Pulse Ox 97.9 F 87 12 149/91 H 100 09/26/16 08:00 09/26/16 08:00 09/26/16 08:00 09/26/16 08:00 09/26/16 08:00 Intake and Output: 09/25/16 09/26/16 23:59 11:59 Intake Total 250 0 Output Total 1900 Balance -1650 0 - Medications Medications: Current Medications Acetaminophen (Tylenol 650mg/20.3ml Solution Ud) 650 mg PO Q6 PRN PRN Reason: Fever >100.4 F Last Admin: 09/15/16 01:19 Dose: 650 mg Albuterol Sulfate (Albuterol 0.083% Inhal Madelin (2.5 Mg/3 Ml) Ud) 2.5 mg INH RQID [facility] Last Admin: 09/26/16 07:51 Dose: 2.5 mg Amiodarone HCl (Cordarone) 200 mg PO BID [facility] Last Admin: 09/25/16 16:14 Dose: Not Given Carvedilol (Coreg) 3.125 mg PO Q12 [facility] Last Admin: 09/25/16 21:31 Dose: Not Given Dexmedetomidine HCl 400 mcg/ (Sodium Chloride) 100 mls @ 4.6 mls/hr IV .[id number] [facility]; 0.2 MCG/KG/HR PRN Reason: Protocol Last Admin: 09/25/16 05:26 Dose: 34.52 mls/hr Levetiracetam 500 mg/ Sodium (Chloride) 105 mls @ 210 mls/hr IVPB Q12 [facility] Last Admin: 09/26/16 09:08 Dose: 210 mls/hr Lactulose (Enulose) 20 gm PO DAILY [facility] Last Admin: 09/25/16 12:34 Dose: Not Given Pantoprazole Sodium (Protonix Inj) 40 mg IVP DAILY [facility] Last Admin: 09/26/16 08:23 Dose: 40 mg Quetiapine Fumarate (Seroquel) 50 mg PO Q8H [facility] Last Admin: 09/25/16 21:31 Dose: Not Given Spironolactone (Aldactone) 50 mg PO DAILY [facility] Last Admin: 09/25/16 12:35 Dose: Not Given - Labs Labs: 09/26/16 04:40 09/26/16 04:40 PT 13.1 SECONDS (9.6-11.2) H 09/24/16 06:02 INR 1.26 (0.92-1.08) H 09/24/16 06:02 APTT 23.3 SECONDS (23.3-32.5) 09/24/16 06:02 Assessment and Plan (1) Aspiration pneumonia Status: Resolved (2) Acute respiratory failure with hypoxia and hypercapnia Status: Resolved (3) Pleural effusion Status: Resolved (4) Congestive cardiomyopathy Status: Chronic (5) Altered mental status Status: Chronic
--- NOTE | 2016-09-26 10:36 | CP.CCUPN ---
<Merrill Leyva T - Last Filed: 09/26/16 10:27> CCU Subjective - Physician Review Subjective (Free Text): Pt seen and examined at bedside in the ICU. Pt is no longer intubated, is awake and oriented to person, place, and time. Pt has no overnight complaints or problems. Denies f/c/n/v/c/d, headaches, chest pain, sob, dyspnea, abd pain, or other myalgias. CCU Objective - Vital Signs / Intake & Output Vital Signs (Last 4 hours): Vital Signs Temp Pulse Resp BP Pulse Ox 09/26/16 10:00 97 H 17 135/81 98 09/26/16 08:00 97.9 F 87 12 149/91 H 100 Intake and Output (Last 8hrs): Intake & Output 09/25/16 09/26/16 09/26/16 22:59 06:59 14:59 Intake Total 250 0 100 Output Total 1900 100 Balance -1650 0 0 Weight 191 lb 3.2 oz Intake: IV 0 0 Intake, Piggyback 200 0 100 Oral 50 0 Tube Feeding 0 Output: Urine 1500 100 Urethral (Clayton) 1500 100 Stool 400 Other: # Voids Urethral (Clayton) 800 # Bowel Movements 1 1 - Physical Exam Head: Positive for: Atraumatic, Normocephalic Pupils: Positive for: PERRL. Negative for: Sluggish, Non-Reactive Extroacular Muscles: Positive for: EOMI Conjunctiva: Positive for: Normal. Negative for: Injected, Icteric Mouth: Positive for: Moist Mucous Membranes, Dry Pharnyx: Positive for: Normal Nose (External): Negative for: Abrasion Neck: Positive for: Trachea Midline. Negative for: JVD, Lymphadenopathy, Bruit Respiratory/Chest: Positive for: Good Air Exchange. Negative for: Wheezes Cardiovascular: Positive for: Regular Rate and Rhythm, Normal S1, S2, Peripheal Pulses Present. Negative for: Murmurs Abdomen: Positive for: Normal Bowel Sounds. Negative for: Tenderness, Distention, Peritoneal Signs, Guarding Upper Extremity: Positive for: Normal Inspection, NORMAL PULSES. Negative for: Cyanosis, Edema Lower Extremity: Positive for: Normal Inspection, NORMAL PULSES. Negative for: Edema, CALF TENDERNESS Neurological: Positive for: GCS=15, CN II-XII Intact Skin: Positive for: Warm, Dry, Normal Color. Negative for: Rashes Psychiatric: Positive for: Alert, Oriented x 3 - Medications Active Medications: Active Medications Generic Name Dose Route Start Last Admin Trade Name Freq PRN Reason Stop Dose Admin Acetaminophen 650 mg 09/10/16 02:44 09/15/16 01:19 Tylenol 650mg/20.3ml Solution Ud PO 650 mg Q6 PRN Administration Fever >100.4 F Albuterol Sulfate 2.5 mg 09/17/16 12:00 09/26/16 07:51 Albuterol 0.083% Inhal Madelin (2.5 Mg/3 Ml) Ud INH 2.5 mg RQID [facility] Administration Amiodarone HCl 200 mg 09/16/16 09:30 09/25/16 16:14 Cordarone PO Not Given BID [facility] Carvedilol 3.125 mg 09/14/16 11:30 09/25/16 21:31 Coreg PO Not Given Q12 [facility] Dexmedetomidine HCl 400 mcg/ 100 mls @ 4.6 mls/hr 09/23/16 11:09 09/25/16 05:26 Sodium Chloride IV 34.52 mls/hr .[id number] [facility] Administration Protocol 0.2 MCG/KG/HR Levetiracetam 500 mg/ Sodium 105 mls @ 210 mls/hr 09/25/16 09:00 09/26/16 09:08 Chloride IVPB 210 mls/hr Q12 [facility] Administration Lactulose 20 gm 09/13/16 11:25 09/25/16 12:34 Enulose PO Not Given DAILY [facility] Pantoprazole Sodium 40 mg 09/19/16 10:45 09/26/16 08:23 Protonix Inj IVP 40 mg DAILY [facility] Administration Quetiapine Fumarate 50 mg 09/22/16 14:00 09/25/16 21:31 Seroquel PO Not Given Q8H [facility] Spironolactone 50 mg 09/14/16 11:15 09/25/16 12:35 Aldactone PO Not Given DAILY [facility] - Patient Studies Lab Studies: Lab Studies 09/26/16 Range/Units 04:40 WBC 7.5 (4.8-10.8) K/uL RBC 4.07 L (4.40-5.90) Mil/uL Hgb 12.2 (12.0-18.0) g/dL Hct 37.5 (35.0-51.0) % MCV 92.2 (80.0-94.0) fl MCH 29.9 (27.0-31.0) pg MCHC 32.5 L (33.0-37.0) g/dL RDW 14.9 H (11.5-14.5) % Plt Count 45 L (130-400) K/uL MPV 12.0 H (7.2-11.7) fl Neut % (Auto) 80.4 H (50.0-75.0) % Lymph % (Auto) 9.3 L (20.0-40.0) % [place] % (Auto) 8.4 (0.0-10.0) % Eos % (Auto) 1.5 (0.0-4.0) % Baso % (Auto) 0.4 (0.0-2.0) % Neut # 6.0 (1.8-7.0) K/uL Lymph # 0.7 L (1.0-4.3) K/uL [place] # 0.6 (0.0-0.8) K/uL Eos # 0.1 (0.0-0.7) K/uL Baso # 0.0 (0.0-0.2) K/uL Sodium 147 (132-148) mmol/l Potassium 3.7 (3.6-5.0) MMOL/L Chloride 104 (98-107) mmol/L Carbon Dioxide 30 (22-30) mmol/L Anion Gap 17 (10-20) BUN 20 (9-20) mg/dl Creatinine 0.9 (0.8-1.5) mg/dL Est GFR ( Amer) > 60 Est GFR (Non-Af Amer) > 60 Random Glucose 101 (75-110) mg/dL Calcium 8.6 (8.4-10.2) mg/dL Total Bilirubin 1.8 H (0.2-1.3) mg/dl AST 92 H (17-59) U/L ALT 84 H (21-72) U/L Alkaline Phosphatase 224 H (38-126) U/L Total Protein 6.9 (6.3-8.2) G/DL Albumin 2.9 L (3.5-5.0) g/dL Globulin 4.0 H (2.2-3.9) gm/dL Albumin/Globulin Ratio 0.7 L (1.0-2.1) Laboratory Results - last 24 hr 09/26/16 04:40 WBC 7.5 RBC 4.07 L Hgb 12.2 Hct 37.5 MCV 92.2 MCH 29.9 MCHC 32.5 L RDW 14.9 H Plt Count 45 L MPV 12.0 H Neut % (Auto) 80.4 H Lymph % (Auto) 9.3 L [place] % (Auto) 8.4 Eos % (Auto) 1.5 Baso % (Auto) 0.4 Neut # 6.0 Lymph # 0.7 L [place] # 0.6 Eos # 0.1 Baso # 0.0 Sodium 147 Potassium 3.7 Chloride 104 Carbon Dioxide 30 Anion Gap 17 BUN 20 Creatinine 0.9 Est GFR ( Amer) > 60 Est GFR (Non-Af Amer) > 60 Random Glucose 101 Calcium 8.6 Total Bilirubin 1.8 H AST 92 H ALT 84 H Alkaline Phosphatase 224 H Total Protein 6.9 Albumin 2.9 L Globulin 4.0 H Albumin/Globulin Ratio 0.7 L Fingerstick Blood Sugar Results: 146 Review of Systems - Review of Systems Review of Systems: see HPI Assessment/Plan - Assessment and Plan (Free Text) Plan: 51 yo M w PMHx of HTN, Crohn's, and etoh dependency was admitted for seizures ( likely etoh withdrawal) and discovered to have low EF 15% and is currently in the ICU for chronic hypercapnia 1) Acute respiratory failure with hypercapnia, aspiration pneumonia -Hypercapnia had improved over previous few days while intubated, w pCO2 ranging 41-45. However, pt self extubated and his pCO2 this AM is now elevated at 49 -Surg & GI were tentatively planning for trach and PEG next week -Albuterol 0.083% 2.5mg INH RQID -f/u Respiratory function, ABGs, labs 2) Altered mental status -Unknown etiology, previously not fully oriented in past -Precedex -Seroquel 50mg PO Q8H -f/u mentation 3) Congestive Cardiomyopathy -Likely etoh induced -LV Systolic Fcn severely impaired, EF of 15-20% -Severe Mitral Regurg, Moderate Tricuspid Regurg -Coreg 3.125mg Q12H -Amiodarone 200mg PO BID -f/u Vitals -f/u Cardiology recommendations 4) Hepatic encephalopathy -Lactulose 20 gm PO Daily -f/u GI Recommendations 5) Thrombocytopenia -No signs of active bleed at this time 6) Acute Renal Failure -Improved, Stable, GFR: >60, will continue to follow labs and I/O's <Filippo Greene - Last Filed: 09/26/16 13:42> CCU Objective - Vital Signs / Intake & Output Vital Signs (Last 4 hours): Vital Signs Temp Pulse Resp BP Pulse Ox 09/26/16 12:00 97.8 F 92 H 23 145/67 95 09/26/16 10:00 97 H 17 135/81 98 Intake and Output (Last 8hrs): Intake & Output 09/25/16 09/26/16 09/26/16 22:59 06:59 14:59 Intake Total 250 0 100 Output Total 1900 200 Balance -1650 0 -100 Weight 191 lb 3.2 oz Intake: IV 0 0 Intake, Piggyback 200 0 100 Oral 50 0 Tube Feeding 0 Output: Urine 1500 200 Urethral (Cl[place]) 1500 200 Stool 400 Other: # Voids Urethral ([place]) 800 # Bowel Movements 1 1 - Medications Active Medications: Active Medications Generic Name Dose Route Start Last Admin Trade Name Freq PRN Reason Stop Dose Admin Acetaminophen 650 mg 09/10/16 02:44 09/15/16 01:19 Tylenol 650mg/20.3ml Solution Ud PO 650 mg Q6 PRN Administration Fever >100.4 F Albuterol Sulfate 2.5 mg 09/17/16 12:00 09/26/16 11:13 Albuterol 0.083% Inhal Madelin (2.5 Mg/3 Ml) Ud INH 2.5 mg RQID [facility] Administration Amiodarone HCl 200 mg 09/16/16 09:30 09/26/16 09:00 Cordarone PO Not Given BID [facility] Carvedilol 3.125 mg 09/14/16 11:30 09/26/16 09:00 Coreg PO Not Given Q12 [facility] Dexmedetomidine HCl 400 mcg/ 100 mls @ 4.6 mls/hr 09/23/16 11:09 09/25/16 05:26 Sodium Chloride IV 34.52 mls/hr .[id number] [facility] Administration Protocol 0.2 MCG/KG/HR Levetiracetam 500 mg/ Sodium 105 mls @ 210 mls/hr 09/25/16 09:00 09/26/16 09:08 Chloride IVPB 210 mls/hr Q12 [facility] Administration Lactulose 20 gm 09/13/16 11:25 09/26/16 09:00 Enulose PO Not Given DAILY [facility] Quetiapine Fumarate 50 mg 09/22/16 14:00 09/25/16 21:31 Seroquel PO Not Given Q8H [facility] Spironolactone 50 mg 09/14/16 11:15 09/26/16 09:00 Aldactone PO Not Given DAILY [facility] - Patient Studies Lab Studies: Lab Studies 09/26/16 Range/Units 04:40 WBC 7.5 (4.8-10.8) K/uL RBC 4.07 L (4.40-5.90) Mil/uL Hgb 12.2 (12.0-18.0) g/dL Hct 37.5 (35.0-51.0) % MCV 92.2 (80.0-94.0) fl MCH 29.9 (27.0-31.0) pg MCHC 32.5 L (33.0-37.0) g/dL RDW 14.9 H (11.5-14.5) % Plt Count 45 L (130-400) K/uL MPV 12.0 H (7.2-11.7) fl Neut % (Auto) 80.4 H (50.0-75.0) % Lymph % (Auto) 9.3 L (20.0-40.0) % [place] % (Auto) 8.4 (0.0-10.0) % Eos % (Auto) 1.5 (0.0-4.0) % Baso % (Auto) 0.4 (0.0-2.0) % Neut # 6.0 (1.8-7.0) K/uL Lymph # 0.7 L (1.0-4.3) K/uL [place] # 0.6 (0.0-0.8) K/uL Eos # 0.1 (0.0-0.7) K/uL Baso # 0.0 (0.0-0.2) K/uL Sodium 147 (132-148) mmol/l Potassium 3.7 (3.6-5.0) MMOL/L Chloride 104 (98-107) mmol/L Carbon Dioxide 30 (22-30) mmol/L Anion Gap 17 (10-20) BUN 20 (9-20) mg/dl Creatinine 0.9 (0.8-1.5) mg/dL Est GFR ( Amer) > 60 Est GFR (Non-Af Amer) > 60 Random Glucose 101 (75-110) mg/dL Calcium 8.6 (8.4-10.2) mg/dL Total Bilirubin 1.8 H (0.2-1.3) mg/dl AST 92 H (17-59) U/L ALT 84 H (21-72) U/L Alkaline Phosphatase 224 H (38-126) U/L Total Protein 6.9 (6.3-8.2) G/DL Albumin 2.9 L (3.5-5.0) g/dL Globulin 4.0 H (2.2-3.9) gm/dL Albumin/Globulin Ratio 0.7 L (1.0-2.1) Laboratory Results - last 24 hr 09/26/16 04:40 WBC 7.5 RBC 4.07 L Hgb 12.2 Hct 37.5 MCV 92.2 MCH 29.9 MCHC 32.5 L RDW 14.9 H Plt Count 45 L MPV 12.0 H Neut % (Auto) 80.4 H Lymph % (Auto) 9.3 L [place] % (Auto) 8.4 Eos % (Auto) 1.5 Baso % (Auto) 0.4 Neut # 6.0 Lymph # 0.7 L [place] # 0.6 Eos # 0.1 Baso # 0.0 Sodium 147 Potassium 3.7 Chloride 104 Carbon Dioxide 30 Anion Gap 17 BUN 20 Creatinine 0.9 Est GFR ( Amer) > 60 Est GFR (Non-Af Amer) > 60 Random Glucose 101 Calcium 8.6 Total Bilirubin 1.8 H AST 92 H ALT 84 H Alkaline Phosphatase 224 H Total Protein 6.9 Albumin 2.9 L Globulin 4.0 H Albumin/Globulin Ratio 0.7 L Critical Care Progress Note - Nutrition Nutrition: Nutrition Category Date Time Status NPO Diet [DIET] Diets 09/26/16 Lunch Active Attending/Attestation - Attestation I have personally seen and examined this patient.: Yes I have fully participated in the care of the patient.: Yes I have reviewed all pertinent clinical information: Yes Notes (Text): 09/26/16 13:41 I have seen and examined the patient. Medical records, lab studies, and imaging were reviewed by me and a management plan was formulated on multidisciplinary rounds with resident Dr. Leyva. I agree with their above documented assessment and plan. Spoke with patient at great length. Patient is alert and oriented and wants to go home, but I made him understand that he needs physical therapy and rehabilitation before he is healthy enough to go home. Patient is to get a modified barium swallow. Critical Care Time 35 minutes. Multi-disciplinary rounds were performed with house staff, nursing, speech therapy, respiratory therapy, pharmacy and nutrition with integrated input from the primary team/attending and other consulting services. The documented time is cumulative and includes review of patient data/exams/labs/chart review and examination of the patient on rounds and throughout the day; time is exclusive of any procedures or teaching time.
[2016-09-26] MEDS ORDERED: Barium Sulfate Susp 0.1% w/v, 0.1% w/w 450 mL Bottle PO ONE (13:11)
[2016-09-26] MEDS: Sodium Chloride 0.9% 1,000 ML IV SCH (17:47)
--- NOTE | 2016-09-26 23:36 | CP.PCM.PN ---
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 Objective - Vital Signs/Intake and Output Vital Signs (last 24 hours): Temp Pulse Resp BP Pulse Ox 98.9 F 90 18 159/95 H 100 09/26/16 23:21 09/26/16 23:21 09/26/16 23:21 09/26/16 22:00 09/26/16 23:21 Intake and Output: 09/26/16 09/27/16 18:59 06:59 Intake Total 150 400 Output Total 1000 Balance -850 400 - Medications Medications: Current Medications Acetaminophen (Tylenol 650mg/20.3ml Solution Ud) 650 mg PO Q6 PRN PRN Reason: Fever >100.4 F Last Admin: 09/15/16 01:19 Dose: 650 mg Albuterol Sulfate (Albuterol 0.083% Inhal Madelin (2.5 Mg/3 Ml) Ud) 2.5 mg INH RQID [facility] Last Admin: 09/26/16 20:07 Dose: 2.5 mg Amiodarone HCl (Cordarone) 200 mg PO BID [facility] Last Admin: 09/26/16 17:46 Dose: 200 mg Carvedilol (Coreg) 3.125 mg PO Q12 [facility] Last Admin: 09/26/16 20:37 Dose: 3.125 mg Dexmedetomidine HCl 400 mcg/ (Sodium Chloride) 100 mls @ 4.6 mls/hr IV .[id number] C[facility]; 0.2 MCG/KG/HR PRN Reason: Protocol Last Admin: 09/25/16 05:26 Dose: 34.52 mls/hr Levetiracetam 500 mg/ Sodium (Chloride) 105 mls @ 210 mls/hr IVPB Q12 [facility] Last Admin: 09/26/16 20:38 Dose: 210 mls/hr Sodium Chloride (Sodium Chloride 0.9%) 1,000 mls @ 50 mls/hr IV .Q20H [facility] Stop: 09/27/16 17:31 Last Admin: 09/26/16 17:47 Dose: 50 mls/hr Lactulose (Enulose) 20 gm PO DAILY [facility] Last Admin: 09/26/16 09:00 Dose: Not Given Quetiapine Fumarate (Seroquel) 50 mg PO Q8H [facility] Last Admin: 09/26/16 21:23 Dose: 50 mg Spironolactone (Aldactone) 50 mg PO DAILY [facility] Last Admin: 09/26/16 09:00 Dose: Not Given - Labs Labs: 09/26/16 04:40 09/26/16 04:40 PT 13.1 SECONDS (9.6-11.2) H 09/24/16 06:02 INR 1.26 (0.92-1.08) H 09/24/16 06:02 APTT 23.3 SECONDS (23.3-32.5) 09/24/16 06:02 Assessment and Plan - Assessment and Plan (Free Text) Assessment: NONA .. RENAL FUNCTION BACK TO WNL ELECTROLYTES ABNORMALITIES .. OK C/O CURRENT CARE C/O CURRENT MANAGEMENT
[2016-09-27 05:32] LABS: BASO % 0.5 % (0.0-2.0); EOS # 0.2 K/uL (0.0-0.7); EOS % 2.4 % (0.0-4.0); LYMPH # 0.7 K/uL (1.0-4.3); LYMPH % 8.7 % (20.0-40.0); MEAN CELL VOLUME 91.4 fl (80.0-94.0); MEAN CORPUSCULAR HEMOGLOBIN 29.8 pg (27.0-31.0); MEAN CORPUSCULAR HGB CONC 32.6 g/dL (33.0-37.0); MEAN PLATELET VOLUME 11.8 fl (7.2-11.7); MONO # 0.6 K/uL (0.0-0.8); MONO % 7.5 % (0.0-10.0); NEUT # 6.5 K/uL (1.8-7.0); NEUT % 80.9 % (50.0-75.0); NRBC % 0.1 % (0.0-0.0); PLATELET COUNT 40 K/uL (130-400); RED CELL DISTRIBUTION WIDTH 14.8 % (11.5-14.5)
[2016-09-27 05:42] LABS: ALB/GLOB RATIO 0.7 (1.0-2.1); ALKALINE PHOSPHATASE 206 U/L (38-126); ALT/SGPT 66 U/L (21-72); AST/SGOT 69 U/L (17-59); BILIRUBIN,TOTAL 2.1 mg/dl (0.2-1.3); BLOOD UREA NITROGEN 13 mg/dl (9-20); CALCIUM 8.6 mg/dL (8.4-10.2); CARBON DIOXIDE 25 mmol/L (22-30); CHLORIDE 105 mmol/L (98-107); GFR AFRICAN-AMERICAN > 60; GLUCOSE,RANDOM 88 mg/dL (75-110); POTASSIUM 3.6 MMOL/L (3.6-5.0); SODIUM 145 mmol/l (132-148); TOTAL PROTEIN 6.8 G/DL (6.3-8.2)
[2016-09-27 06:09] LABS: ABG ALLEN TEST YES; ARTERIAL BLOOD GAS HCO3 27.5 mmol/L (21-28); ARTERIAL BLOOD GAS O2 CAPACITY 16.6 mL/dL (16-24); ARTERIAL BLOOD GAS O2 CONTENT 15.3 ML/dL (15-23); ARTERIAL BLOOD GAS PH 7.45 (7.35-7.45); ARTERIAL BLOOD GAS PO2 58 mm/Hg (80-100); ARTERIAL BLOOD HGB O2 SAT 89.4 % (95.0-98.0); HHB 7.6 % (0.0-5.0)
[2016-09-27 07:12] LABS: EOSINOPHIL 1 % (0-7); NEUTROPHIL 90 % (42-75); TOTAL CELLS COUNTED 100
[2016-09-27] MEDS: Albuterol 0.083% Inhal Sol (2.5 mg/3 mL) UD INH SCH ×4 (08:06→20:07)
[2016-09-27 08:29] LABS: MAGNESIUM 1.4 MG/DL (1.6-2.3); PHOSPHOROUS 3.1 mg/dl (2.5-4.5)
[2016-09-27] MEDS: levETIRAcetam 500 MG in Sodium Chloride 0.9% 100 ML IVPB SCH ×2 (09:06→20:51)
[2016-09-27] MEDS ORDERED: Barium Sulfate Susp 0.1% w/v, 0.1% w/w 450 mL Bottle PO ONE (09:54)
--- NOTE | 2016-09-27 10:19 | CP.CCUPN ---
<Merrill Leyva T - Last Filed: 09/27/16 10:22> CCU Subjective - Physician Review Subjective (Free Text): Pt seen and examined at bedside in the ICU. Pt is lying comfortably in his bed and is AAOx3. Pt had no overnight complaints or problems. Denies f/c/n/v/c/d, headaches, chest pain, sob, dyspnea, abd pain, or other myalgias. CCU Objective - Vital Signs / Intake & Output Vital Signs (Last 4 hours): Vital Signs Temp Pulse Resp BP Pulse Ox 09/27/16 09:06 91 H 155/71 H 09/27/16 09:05 91 H 155/71 H 09/27/16 08:00 98.4 F 91 H 9 L 140/71 92 L 09/27/16 06:13 18 92 L Intake and Output (Last 8hrs): Intake & Output 09/26/16 09/27/16 09/27/16 22:59 06:59 14:59 Intake Total 300 550 Output Total 700 900 Balance -400 -350 Intake: IV 200 350 Intake, Piggyback 100 100 Oral 50 Tube Feeding 0 Free Water Flush 50 Output: Gastric Amount 0 Stomach 0 Urine 700 900 Urethral (Clayton) 700 900 Other: # Bowel Movements 1 1 - Physical Exam Head: Positive for: Atraumatic, Normocephalic Pupils: Positive for: PERRL. Negative for: Sluggish, Non-Reactive Extroacular Muscles: Positive for: EOMI Conjunctiva: Positive for: Normal. Negative for: Injected, Icteric Mouth: Positive for: Moist Mucous Membranes Pharnyx: Positive for: Normal Nose (External): Negative for: Abrasion Neck: Positive for: Trachea Midline. Negative for: JVD, Lymphadenopathy, Bruit Respiratory/Chest: Positive for: Good Air Exchange. Negative for: Wheezes, Rhonchi, Tachypneic Cardiovascular: Positive for: Regular Rate and Rhythm, Normal S1, S2, Peripheal Pulses Present. Negative for: Murmurs Abdomen: Positive for: Normal Bowel Sounds. Negative for: Tenderness, Distention, Peritoneal Signs, Guarding Upper Extremity: Positive for: Normal Inspection, NORMAL PULSES. Negative for: Cyanosis, Edema Lower Extremity: Positive for: Normal Inspection, NORMAL PULSES. Negative for: Edema, CALF TENDERNESS Neurological: Positive for: GCS=15, CN II-XII Intact Skin: Positive for: Warm, Dry, Normal Color. Negative for: Rashes Psychiatric: Positive for: Alert, Oriented x 3 - Medications Active Medications: Active Medications Generic Name Dose Route Start Last Admin Trade Name Freq PRN Reason Stop Dose Admin Albuterol Sulfate 2.5 mg 09/17/16 12:00 09/27/16 08:06 Albuterol 0.083% Inhal Madelin (2.5 Mg/3 Ml) Ud INH 2.5 mg RQID C[facility]NEY Administration Amiodarone HCl 200 mg 09/16/16 09:30 09/27/16 09:05 Cordarone PO 200 mg BID [facility]NEY Administration Carvedilol 3.125 mg 09/14/16 11:30 09/27/16 09:06 Coreg PO 3.125 mg Q12 [facility] Administration Levetiracetam 500 mg/ Sodium 105 mls @ 210 mls/hr 09/25/16 09:00 09/27/16 09:06 Chloride IVPB 210 mls/hr Q12 [facility]NEY Administration Sodium Chloride 1,000 mls @ 50 mls/hr 09/26/16 17:30 09/26/16 17:47 Sodium Chloride 0.9% IV 09/27/16 17:31 50 mls/hr .Q20H [facility] Administration Lactulose 20 gm 09/13/16 11:25 09/27/16 09:06 Enulose PO 20 gm DAILY [facility] Administration Quetiapine Fumarate 50 mg 09/22/16 14:00 09/27/16 05:16 Seroquel PO 50 mg Q8H [facility] Administration Spironolactone 50 mg 09/14/16 11:15 09/27/16 09:05 Aldactone PO 50 mg DAILY [facility] Administration - Patient Studies Lab Studies: Lab Studies 09/27/16 09/27/16 Range/Units 06:09 04:25 WBC 8.0 (4.8-10.8) K/uL RBC 4.16 L (4.40-5.90) Mil/uL Hgb 12.4 (12.0-18.0) g/dL Hct 38.0 (35.0-51.0) % MCV 91.4 (80.0-94.0) fl MCH 29.8 (27.0-31.0) pg MCHC 32.6 L (33.0-37.0) g/dL RDW 14.8 H (11.5-14.5) % Plt Count 40 L (130-400) K/uL MPV 11.8 H (7.2-11.7) fl Neut % (Auto) 80.9 H (50.0-75.0) % Lymph % (Auto) 8.7 L (20.0-40.0) % Wilson % (Auto) 7.5 (0.0-10.0) % Eos % (Auto) 2.4 (0.0-4.0) % Baso % (Auto) 0.5 (0.0-2.0) % Neut # 6.5 (1.8-7.0) K/uL Lymph # 0.7 L (1.0-4.3) K/uL Wilson # 0.6 (0.0-0.8) K/uL Eos # 0.2 (0.0-0.7) K/uL Baso # 0.0 (0.0-0.2) K/uL Neutrophils % (Manual) 90 H (42-75) % Band Neutrophils % 2 (0-2) % Lymphocytes % (Manual) 5 L (20-50) % Monocytes % (Manual) 2 (0-10) % Eosinophils % (Manual) 1 (0-7) % Toxic Granulation Present Platelet Estimate Decreased L (NORMAL) Polychromasia Slight Target Cells Slight pCO2 40 (35-45) mm/Hg pO2 58 L (80-100) mm/Hg HCO3 27.5 (21-28) mmol/L ABG pH 7.45 (7.35-7.45) ABG Total CO2 29.0 H (22-28) mmol/L ABG O2 Saturation 92.2 L (95-98) % ABG O2 Content 15.3 (15-23) ML/dL ABG Base Excess 3.5 H (-2.0-3.0) mmol/L ABG Hemoglobin 12.2 (11.7-17.4) g/dL ABG Carboxyhemoglobin 2.0 H (0.5-1.5) % POC ABG HHb (Measured) 7.6 H (0.0-5.0) % ABG Methemoglobin 1.0 (0.0-3.0) % ABG O2 Capacity 16.6 (16-24) mL/dL Jim Test Yes A-a O2 Difference 120.0 mm/Hg Hgb O2 Saturation 89.4 L (95.0-98.0) % FiO2 32.0 % Sodium 145 (132-148) mmol/l Potassium 3.6 (3.6-5.0) MMOL/L Chloride 105 (98-107) mmol/L Carbon Dioxide 25 (22-30) mmol/L Anion Gap 19 (10-20) BUN 13 (9-20) mg/dl Creatinine 0.8 (0.8-1.5) mg/dL Est GFR ( Amer) > 60 Est GFR (Non-Af Amer) > 60 Random Glucose 88 (75-110) mg/dL Calcium 8.6 (8.4-10.2) mg/dL Phosphorus 3.1 (2.5-4.5) mg/dl Magnesium 1.4 L (1.6-2.3) MG/DL Total Bilirubin 2.1 H (0.2-1.3) mg/dl AST 69 H D (17-59) U/L ALT 66 (21-72) U/L Alkaline Phosphatase 206 H (38-126) U/L Total Protein 6.8 (6.3-8.2) G/DL Albumin 2.9 L (3.5-5.0) g/dL Globulin 3.9 (2.2-3.9) gm/dL Albumin/Globulin Ratio 0.7 L (1.0-2.1) Laboratory Results - last 24 hr 09/27/16 09/27/16 04:25 06:09 WBC 8.0 RBC 4.16 L Hgb 12.4 Hct 38.0 MCV 91.4 MCH 29.8 MCHC 32.6 L RDW 14.8 H Plt Count 40 L MPV 11.8 H Neut % (Auto) 80.9 H Lymph % (Auto) 8.7 L Wilson % (Auto) 7.5 Eos % (Auto) 2.4 Baso % (Auto) 0.5 Neut # 6.5 Lymph # 0.7 L Wilson # 0.6 Eos # 0.2 Baso # 0.0 Neutrophils % (Manual) 90 H Band Neutrophils % 2 Lymphocytes % (Manual) 5 L Monocytes % (Manual) 2 Eosinophils % (Manual) 1 Toxic Granulation Present Platelet Estimate Decreased L Polychromasia Slight Target Cells Slight pCO2 40 pO2 58 L HCO3 27.5 ABG pH 7.45 ABG Total CO2 29.0 H ABG O2 Saturation 92.2 L ABG O2 Content 15.3 ABG Base Excess 3.5 H ABG Hemoglobin 12.2 ABG Carboxyhemoglobin 2.0 H POC ABG HHb (Measured) 7.6 H ABG Methemoglobin 1.0 ABG O2 Capacity 16.6 Jim Test Yes A-a O2 Difference 120.0 Hgb O2 Saturation 89.4 L FiO2 32.0 Sodium 145 Potassium 3.6 Chloride 105 Carbon Dioxide 25 Anion Gap 19 BUN 13 Creatinine 0.8 Est GFR ( Amer) > 60 Est GFR (Non-Af Amer) > 60 Random Glucose 88 Calcium 8.6 Phosphorus 3.1 Magnesium 1.4 L Total Bilirubin 2.1 H AST 69 H D ALT 66 Alkaline Phosphatase 206 H Total Protein 6.8 Albumin 2.9 L Globulin 3.9 Albumin/Globulin Ratio 0.7 L Fingerstick Blood Sugar Results: 146 Review of Systems - Review of Systems Review of Systems: see HPI Critical Care Progress Note - Nutrition Nutrition: Nutrition Category Date Time Status NPO Diet [DIET] Diets 09/26/16 Lunch Active Assessment/Plan - Assessment and Plan (Free Text) Plan: 51 yo M w PMHx of HTN, Crohn's, and etoh dependency was originally admitted for seizures (likely etoh withdrawal). He was discovered to have low EF of 15% transferred to the ICU for chronic hypercapnia & lethargy, and remained while he was intubated/extubated. 1) Acute respiratory failure with hypercapnia, aspiration pneumonia -Hypercapnia has improved even w extubation, w pCO2 ranging 40-48. -Albuterol 0.083% 2.5mg INH RQID -f/u Respiratory function, ABGs, labs 2) Altered mental status -Unknown etiology -AAOx2 - AAOx3 -Seroquel 50mg PO Q8H -Keppra 500mg IVPB Q12H -f/u mentation 3) Congestive Cardiomyopathy -Likely etoh induced -LV Systolic Fcn severely impaired, EF of 15-20% -Severe Mitral Regurg, Moderate Tricuspid Regurg -Coreg 3.125mg Q12H -Amiodarone 200mg PO BID -Spironolactone 50mg PO Daily -f/u Vitals -f/u Cardiology recommendations 4) Hepatic encephalopathy -Lactulose 20 gm PO Daily -f/u GI Recommendations 5) Thrombocytopenia -No signs of active bleed at this time 6) Acute Renal Failure -Improved, Stable, GFR: >60, will continue to follow labs and I/O's <ClarenceLisa Olivares - Last Filed: 09/27/16 15:35> CCU Objective - Vital Signs / Intake & Output Vital Signs (Last 4 hours): Vital Signs Temp Pulse Resp BP Pulse Ox 09/27/16 14:00 95 H 18 149/88 92 L 09/27/16 12:00 98.4 F 92 H 16 143/87 94 L Intake and Output (Last 8hrs): Intake & Output 09/27/16 09/27/16 09/27/16 06:59 14:59 22:59 Intake Total 550 400 Output Total 900 250 Balance -350 150 Intake: IV 350 400 Intake, Piggyback 100 Oral 50 Tube Feeding 0 Free Water Flush 50 Output: Gastric Amount 0 Stomach 0 Urine 900 250 Urethral (Clayton) 900 250 Other: # Bowel Movements 1 - Medications Active Medications: Active Medications Generic Name Dose Route Start Last Admin Trade Name Freq PRN Reason Stop Dose Admin Albuterol Sulfate 2.5 mg 09/17/16 12:00 09/27/16 11:18 Albuterol 0.083% Inhal Madelin (2.5 Mg/3 Ml) Ud INH 2.5 mg RQID [facility] Administration Amiodarone HCl 200 mg 09/16/16 09:30 09/27/16 09:05 Cordarone PO 200 mg BID [facility] Administration Carvedilol 3.125 mg 09/14/16 11:30 09/27/16 09:06 Coreg PO 3.125 mg Q12 [facility] Administration Levetiracetam 500 mg/ Sodium 105 mls @ 210 mls/hr 09/25/16 09:00 09/27/16 09:06 Chloride IVPB 210 mls/hr Q12 [facility] Administration Sodium Chloride 1,000 mls @ 50 mls/hr 09/26/16 17:30 09/27/16 14:00 Sodium Chloride 0.9% IV 09/27/16 17:31 50 mls/hr .Q20H [facility] Administration Lactulose 20 gm 09/13/16 11:25 09/27/16 09:06 Enulose PO 20 gm DAILY [facility] Administration Quetiapine Fumarate 50 mg 09/22/16 14:00 09/27/16 15:00 Seroquel PO 50 mg Q8H [facility] Administration Spironolactone 50 mg 09/14/16 11:15 09/27/16 09:05 Aldactone PO 50 mg DAILY [facility] Administration - Patient Studies Lab Studies: Lab Studies 09/27/16 09/27/16 Range/Units 06:09 04:25 WBC 8.0 (4.8-10.8) K/uL RBC 4.16 L (4.40-5.90) Mil/uL Hgb 12.4 (12.0-18.0) g/dL Hct 38.0 (35.0-51.0) % MCV 91.4 (80.0-94.0) fl MCH 29.8 (27.0-31.0) pg MCHC 32.6 L (33.0-37.0) g/dL RDW 14.8 H (11.5-14.5) % Plt Count 40 L (130-400) K/uL MPV 11.8 H (7.2-11.7) fl Neut % (Auto) 80.9 H (50.0-75.0) % Lymph % (Auto) 8.7 L (20.0-40.0) % Wilson % (Auto) 7.5 (0.0-10.0) % Eos % (Auto) 2.4 (0.0-4.0) % Baso % (Auto) 0.5 (0.0-2.0) % Neut # 6.5 (1.8-7.0) K/uL Lymph # 0.7 L (1.0-4.3) K/uL Wilson # 0.6 (0.0-0.8) K/uL Eos # 0.2 (0.0-0.7) K/uL Baso # 0.0 (0.0-0.2) K/uL Neutrophils % (Manual) 90 H (42-75) % Band Neutrophils % 2 (0-2) % Lymphocytes % (Manual) 5 L (20-50) % Monocytes % (Manual) 2 (0-10) % Eosinophils % (Manual) 1 (0-7) % Toxic Granulation Present Platelet Estimate Decreased L (NORMAL) Polychromasia Slight Target Cells Slight pCO2 40 (35-45) mm/Hg pO2 58 L (80-100) mm/Hg HCO3 27.5 (21-28) mmol/L ABG pH 7.45 (7.35-7.45) ABG Total CO2 29.0 H (22-28) mmol/L ABG O2 Saturation 92.2 L (95-98) % ABG O2 Content 15.3 (15-23) ML/dL ABG Base Excess 3.5 H (-2.0-3.0) mmol/L ABG Hemoglobin 12.2 (11.7-17.4) g/dL ABG Carboxyhemoglobin 2.0 H (0.5-1.5) % POC ABG HHb (Measured) 7.6 H (0.0-5.0) % ABG Methemoglobin 1.0 (0.0-3.0) % ABG O2 Capacity 16.6 (16-24) mL/dL Jim Test Yes A-a O2 Difference 120.0 mm/Hg Hgb O2 Saturation 89.4 L (95.0-98.0) % FiO2 32.0 % Sodium 145 (132-148) mmol/l Potassium 3.6 (3.6-5.0) MMOL/L Chloride 105 (98-107) mmol/L Carbon Dioxide 25 (22-30) mmol/L Anion Gap 19 (10-20) BUN 13 (9-20) mg/dl Creatinine 0.8 (0.8-1.5) mg/dL Est GFR ( Amer) > 60 Est GFR (Non-Af Amer) > 60 Random Glucose 88 (75-110) mg/dL Calcium 8.6 (8.4-10.2) mg/dL Phosphorus 3.1 (2.5-4.5) mg/dl Magnesium 1.4 L (1.6-2.3) MG/DL Total Bilirubin 2.1 H (0.2-1.3) mg/dl AST 69 H D (17-59) U/L ALT 66 (21-72) U/L Alkaline Phosphatase 206 H (38-126) U/L Total Protein 6.8 (6.3-8.2) G/DL Albumin 2.9 L (3.5-5.0) g/dL Globulin 3.9 (2.2-3.9) gm/dL Albumin/Globulin Ratio 0.7 L (1.0-2.1) Laboratory Results - last 24 hr 09/27/16 09/27/16 04:25 06:09 WBC 8.0 RBC 4.16 L Hgb 12.4 Hct 38.0 MCV 91.4 MCH 29.8 MCHC 32.6 L RDW 14.8 H Plt Count 40 L MPV 11.8 H Neut % (Auto) 80.9 H Lymph % (Auto) 8.7 L Wilson % (Auto) 7.5 Eos % (Auto) 2.4 Baso % (Auto) 0.5 Neut # 6.5 Lymph # 0.7 L Wilson # 0.6 Eos # 0.2 Baso # 0.0 Neutrophils % (Manual) 90 H Band Neutrophils % 2 Lymphocytes % (Manual) 5 L Monocytes % (Manual) 2 Eosinophils % (Manual) 1 Toxic Granulation Present Platelet Estimate Decreased L Polychromasia Slight Target Cells Slight pCO2 40 pO2 58 L HCO3 27.5 ABG pH 7.45 ABG Total CO2 29.0 H ABG O2 Saturation 92.2 L ABG O2 Content 15.3 ABG Base Excess 3.5 H ABG Hemoglobin 12.2 ABG Carboxyhemoglobin 2.0 H POC ABG HHb (Measured) 7.6 H ABG Methemoglobin 1.0 ABG O2 Capacity 16.6 Jim Test Yes A-a O2 Difference 120.0 Hgb O2 Saturation 89.4 L FiO2 32.0 Sodium 145 Potassium 3.6 Chloride 105 Carbon Dioxide 25 Anion Gap 19 BUN 13 Creatinine 0.8 Est GFR ( Amer) > 60 Est GFR (Non-Af Amer) > 60 Random Glucose 88 Calcium 8.6 Phosphorus 3.1 Magnesium 1.4 L Total Bilirubin 2.1 H AST 69 H D ALT 66 Alkaline Phosphatase 206 H Total Protein 6.8 Albumin 2.9 L Globulin 3.9 Albumin/Globulin Ratio 0.7 L Critical Care Progress Note - Nutrition Nutrition: Nutrition Category Date Time Status Heart Healthy Diet [DIET] Diets 09/27/16 Lunch Active Attending/Attestation - Attestation I have personally seen and examined this patient.: Yes I have fully participated in the care of the patient.: Yes I have reviewed all pertinent clinical information: Yes Notes (Text): 09/27/16 15:34 Patient seen and examined in the morning, doing well. Agree with resident's note. Transfer to regular floor.
--- NOTE | 2016-09-27 11:02 | PN ---
DATE: 09/27/2016 The patient seen and examined. Interim events noted. Consults noted and appreciated. The patient r emains in intensive care unit. The patient is awake, responsive, communicative and feels okay. Tyrone es any specific complaint of chest pain or shortness of breath. PHYSICAL EXAMINATION: GENERAL: The patient is in no acute distress. VITAL SIGNS: Stable. HEART: S1, S2 normal, regular. LUNGS: Good bilateral air exchange. ABDOMEN: Soft, nontender. EXTREMITIES: No calf swelling, no tenderness, no acute ischemia. CENTRAL NERVOUS SYSTEM: Essentially unchanged. DIAGNOSTIC DATA: Available diagnostic data reviewed. Telemetry monitoring does not reveal significa nt arrhythmia. Overall, patient's general medical condition is stable and improving. Tolerating extubation. PLAN: As ordered. Kal Rogel MD cc: [id number] TT: 09/27/2016 11:01:43 Confirmation # [id number] Dictation # [id number]
--- NOTE | 2016-09-27 11:49 | RAD ---
PROCEDURE: Modified barium video swallow HISTORY: swallow evaluation COMPARISON: Not available TECHNIQUE: Modified barium video swallow examination was performed in conjunction with the speech therapy department. Barium mixtures of varying viscosity were administered orally, under fluoroscopic observation. FINDINGS: The laryngeal penetration was observed with thin liquids and nectar. No aspiration was observed during this examination. Please see the full report of this examination from the speech therapy department. IMPRESSION: No aspiration observed. Please see report from speech therapy department.
[2016-09-27] MEDS: Sodium Chloride 0.9% 1,000 ML IV SCH (14:00)
--- NOTE | 2016-09-27 19:01 | CP.PCM.PN ---
Subjective - Date & Time of Evaluation Date of Evaluation: 09/27/16 Time of Evaluation: 15:00 - Subjective Subjective: SEEN ON RENAL F/U IN ICU REMAINS EXTUBATED RENAL FUNCTION GOOD Objective - Vital Signs/Intake and Output Vital Signs (last 24 hours): Temp Pulse Resp BP Pulse Ox 100.3 F H 92 H 18 139/74 92 L 09/27/16 16:49 09/27/16 16:05 09/27/16 14:00 09/27/16 16:05 09/27/16 14:00 Intake and Output: 09/27/16 09/27/16 06:59 18:59 Intake Total 800 400 Output Total 900 250 Balance -100 150 - Medications Medications: Current Medications Acetaminophen (Tylenol 325mg Tab) 650 mg PO Q8 PRN PRN Reason: Pain, moderate (4-7) Last Admin: 09/27/16 18:26 Dose: 650 mg Albuterol Sulfate (Albuterol 0.083% Inhal Madelin (2.5 Mg/3 Ml) Ud) 2.5 mg INH RQID [facility] Last Admin: 09/27/16 15:49 Dose: 2.5 mg Amiodarone HCl (Cordarone) 200 mg PO BID [facility] Last Admin: 09/27/16 16:05 Dose: 200 mg Carvedilol (Coreg) 3.125 mg PO Q12 [facility] Last Admin: 09/27/16 09:06 Dose: 3.125 mg Levetiracetam 500 mg/ Sodium (Chloride) 105 mls @ 210 mls/hr IVPB Q12 [facility] Last Admin: 09/27/16 09:06 Dose: 210 mls/hr Lactulose (Enulose) 20 gm PO DAILY [facility] Last Admin: 09/27/16 09:06 Dose: 20 gm Quetiapine Fumarate (Seroquel) 50 mg PO Q8H [facility] Last Admin: 09/27/16 15:00 Dose: 50 mg Spironolactone (Aldactone) 50 mg PO DAILY [facility] Last Admin: 09/27/16 09:05 Dose: 50 mg - Labs Labs: 09/27/16 04:25 09/27/16 04:25 PT 13.1 SECONDS (9.6-11.2) H 09/24/16 06:02 INR 1.26 (0.92-1.08) H 09/24/16 06:02 APTT 23.3 SECONDS (23.3-32.5) 09/24/16 06:02 Assessment and Plan - Assessment and Plan (Free Text) Assessment: NONA RENAL FUNCTION WNL ELECTROLYTES ABN .. BETTER 51 yo M w PMHx of HTN, Crohn's, and etoh dependency was originally admitted for seizures (likely etoh withdrawal). He was discovered to have low EF of 15% transferred to the ICU for chronic hypercapnia & lethargy, and remained while he was intubated/extubated. 1) Acute respiratory failure with hypercapnia, aspiration pneumonia -Hypercapnia has improved even w extubation, w pCO2 ranging 40-48. -Albuterol 0.083% 2.5mg INH RQID -f/u Respiratory function, ABGs, labs 2) Altered mental status -Unknown etiology -AAOx2 - AAOx3 -Seroquel 50mg PO Q8H -Keppra 500mg IVPB Q12H -f/u mentation 3) Congestive Cardiomyopathy -Likely etoh induced -LV Systolic Fcn severely impaired, EF of 15-20% -Severe Mitral Regurg, Moderate Tricuspid Regurg -Coreg 3.125mg Q12H -Amiodarone 200mg PO BID -Spironolactone 50mg PO Daily -f/u Vitals -f/u Cardiology recommendations 4) Hepatic encephalopathy -Lactulose 20 gm PO Daily -f/u GI Recommendations 5) Thrombocytopenia -No signs of active bleed at this time 6) Acute Renal Failure -Improved, Stable, GFR: >60, will continue to follow labs
[2016-09-28 05:09] LABS: ABG ALLEN TEST YES; ARTERIAL BLOOD GAS HCO3 28.2 mmol/L (21-28); ARTERIAL BLOOD GAS O2 CONTENT 16.1 ML/dL (15-23); ARTERIAL BLOOD GAS PH 7.47 (7.35-7.45); ARTERIAL BLOOD GAS PO2 64 mm/Hg (80-100); ARTERIAL BLOOD HGB O2 SAT 91.5 % (95.0-98.0); CARBOXYHEMOGLOBIN 2.2 % (0.5-1.5); HHB 5.2 % (0.0-5.0); METHEMOGLOBIN 1.1 % (0.0-3.0)
[2016-09-28] MEDS: Albuterol 0.083% Inhal Sol (2.5 mg/3 mL) UD INH SCH ×4 (07:26→19:26)
[2016-09-28] MEDS: levETIRAcetam 500 MG in Sodium Chloride 0.9% 100 ML IVPB SCH ×2 (10:38→23:21)
--- NOTE | 2016-09-28 11:12 | US ---
HISTORY: rt. quadrant pain COMPARISON: 09/04/2016. TECHNIQUE: Sonographic evaluation of the abdomen. FINDINGS: LIVER: Measures 16.1 cm. Patent portal vein. Portal venous flow: Hepatopetal. Unremarkeable echogenicity of the liver parenchyma. No mass. No intrahepatic bile duct dilatation. GALLBLADDER: Unremarkable. No gallstones. COMMON BILE DUCT: Measures 2.8 mm. No stones. No dilatation. PANCREAS: Unremarkable as visualized. No mass. No ductal dilatation. RIGHT KIDNEY: Measures 10.7cm. Normal echogenicity. No calculus, mass, or hydronephrosis. LEFT KIDNEY: Measures 11.1 cm. Normal echogenicity. No calculus, mass, or hydronephrosis. SPLEEN: Splenomegaly, the spleen measures 5 x 16 cm. The spleen is better seen on the current study than seen previously. AORTA: No aneurysmal dilatation. IVC: Unremarkable. OTHER FINDINGS: None. IMPRESSION: No acute findings related to/accounting for the clinical presentation. Incidental finding(s): Splenomegaly.
[2016-09-28 14:50] LABS: HEMATOCRIT 37.3 % (35.0-51.0); MEAN CORPUSCULAR HEMOGLOBIN 30.3 pg (27.0-31.0); MEAN CORPUSCULAR HGB CONC 32.9 g/dL (33.0-37.0); RED CELL DISTRIBUTION WIDTH 15.2 % (11.5-14.5)
[2016-09-28 15:08] LABS: ALKALINE PHOSPHATASE 223 U/L (38-126); ALT/SGPT 59 U/L (21-72); AST/SGOT 50 U/L (17-59); BILIRUBIN,TOTAL 2.1 mg/dl (0.2-1.3); BLOOD UREA NITROGEN 14 mg/dl (9-20); CALCIUM 8.7 mg/dL (8.4-10.2); CARBON DIOXIDE 27 mmol/L (22-30); CHLORIDE 106 mmol/L (98-107); GFR AFRICAN-AMERICAN > 60; GLUCOSE,RANDOM 127 mg/dL (75-110); POTASSIUM 3.5 MMOL/L (3.6-5.0); SODIUM 140 mmol/l (132-148); TOTAL PROTEIN 7.2 G/DL (6.3-8.2)
[2016-09-28 15:09] LABS: ALB/GLOB RATIO 0.8 (1.0-2.1)
[2016-09-29] MEDS: Albuterol 0.083% Inhal Sol (2.5 mg/3 mL) UD INH SCH ×4 (07:41→20:19)
--- NOTE | 2016-09-29 08:13 | PN ---
DATE: 09/28/2016 The patient seen and examined. Interim events noted. The patient remains in transfer out of . He looks okay. No chest pain or shortness of breath. PHYSICAL EXAMINATION: GENERAL: The patient is in no acute distress. VITAL SIGNS: Stable. HEART: S1, S2 normal, regular. LUNGS: Good bilateral air entry. ABDOMEN: Soft, nontender. No organomegaly. obstruction. EXTREMITIES: No edema, no calf swelling, no tenderness and no acute ischemia. CENTRAL NERVOUS SYSTEM: Essentially unchanged. DIAGNOSTIC DATA: Available diagnostic data reviewed. Overall, the patient's medical condition is stable. PLAN: As ordered. Kal Rogel MD cc: [id number] TT: 09/28/2016 09:31:14 Confirmation # [id number] Dictation # [id number]
[2016-09-29] MEDS: levETIRAcetam 500 MG in Sodium Chloride 0.9% 100 ML IVPB SCH ×2 (08:33→21:01)
[2016-09-29 08:45] LABS: HEMATOCRIT 33.3 % (35.0-51.0); MEAN CELL VOLUME 92.1 fl (80.0-94.0); MEAN CORPUSCULAR HGB CONC 32.6 g/dL (33.0-37.0); RED CELL DISTRIBUTION WIDTH 15.1 % (11.5-14.5); WHITE BLOOD COUNT 6.3 K/uL (4.8-10.8)
[2016-09-29 08:59] LABS: ALB/GLOB RATIO 0.7 (1.0-2.1); ALKALINE PHOSPHATASE 212 U/L (38-126); ALT/SGPT 54 U/L (21-72); AST/SGOT 44 U/L (17-59); BILIRUBIN,TOTAL 1.6 mg/dl (0.2-1.3); BLOOD UREA NITROGEN 19 mg/dl (9-20); CALCIUM 8.5 mg/dL (8.4-10.2); CARBON DIOXIDE 27 mmol/L (22-30); CHLORIDE 105 mmol/L (98-107); GFR AFRICAN-AMERICAN > 60; GLUCOSE,RANDOM 128 mg/dL (75-110); POTASSIUM 3.5 MMOL/L (3.6-5.0); SODIUM 140 mmol/l (132-148); TOTAL PROTEIN 7.1 G/DL (6.3-8.2)
[2016-09-29] MEDS ORDERED: Potassium Chloride 20 mEq ER Tab PO ONE (13:16)
--- NOTE | 2016-09-29 16:03 | CP.PCM.PN ---
Subjective - Date & Time of Evaluation Date of Evaluation: 09/29/16 Time of Evaluation: 15:00 - Subjective Subjective: SEEN ON RENAL F/U CONFUSED .. IN NAD K AND MAG BOTH LOW Objective - Vital Signs/Intake and Output Vital Signs (last 24 hours): Temp Pulse Resp BP Pulse Ox 97.5 F L 81 20 127/81 95 09/29/16 08:25 09/29/16 08:29 09/29/16 08:25 09/29/16 08:29 09/29/16 08:25 - Medications Medications: Current Medications Acetaminophen (Tylenol 325mg Tab) 650 mg PO Q8 PRN PRN Reason: Pain, moderate (4-7) Last Admin: 09/29/16 05:39 Dose: 650 mg Albuterol Sulfate (Albuterol 0.083% Inhal Madelin (2.5 Mg/3 Ml) Ud) 2.5 mg INH RQID [facility] Last Admin: 09/29/16 11:53 Dose: 2.5 mg Amiodarone HCl (Cordarone) 200 mg PO BID [facility] Last Admin: 09/29/16 08:29 Dose: 200 mg Ascorbic Acid (Vitamin C 500 Mg Tab) 1,000 mg PO DAILY [facility] Levetiracetam 500 mg/ Sodium (Chloride) 105 mls @ 210 mls/hr IVPB Q12 [facility] Last Admin: 09/29/16 08:33 Dose: 210 mls/hr Lactulose (Enulose) 20 gm PO DAILY [facility] Last Admin: 09/29/16 08:30 Dose: 20 gm Magnesium Oxide (Mag-Ox) 400 mg PO BID [facility] Potassium Chloride (K-Dur 20 Meq Er Tab) 20 meq PO DAILY [facility] Quetiapine Fumarate (Seroquel) 50 mg PO Q8H [facility] Last Admin: 09/29/16 15:41 Dose: 50 mg Vitamin B Complex/Vit C/Folic Acid (Nephro-Sarai) 1 tab PO DAILY [facility] - Labs Labs: 09/29/16 08:31 09/29/16 08:31 PT 13.1 SECONDS (9.6-11.2) H 09/24/16 06:02 INR 1.26 (0.92-1.08) H 09/24/16 06:02 APTT 23.3 SECONDS (23.3-32.5) 09/24/16 06:02 Assessment and Plan - Assessment and Plan (Free Text) Assessment: NONA .. RENAL FUNCTION BETTER ELECTROLYTES ABNORMALITIES .. SUPPLY K AND MG
[2016-09-29] MEDS: Potassium Chloride 20 mEq ER Tab PO SCH (18:34)
[2016-09-29] MEDS: Magnesium Oxide 400 mg Tab UD PO SCH (18:34)
--- NOTE | 2016-09-29 23:30 | PN ---
DATE: 09/29/2016 SUBJECTIVE: He passed swallowing evaluation, and he is awake and alert, and stated that he feels ___ __ more fluid. OBJECTIVE: VITAL SIGNS: Blood pressure 127/81, temperature 98.7, respiratory rate 20, and pulse 84. HEENT: Pupils equal, reactive to light. Normal-appearing mucosa of the conjunctivae, oropharyngeal, and nasal membrane mucosa. NECK: Supple. No JVD. No carotid bruit. No lymph node. No thyromegaly. CHEST AND LUNGS: Bilateral symmetrical expansion, good air exchange. No rales. No rhonchi. CARDIOVASCULAR: PMI not localized. S1, S2. No additional sounds. ABDOMEN: Normoactive bowel sounds. No tenderness. No organomegaly. No masses. EXTREMITIES: No cyanosis. No clubbing. No edema. [employer]: Alert, awake, oriented x 2. No neurological deficits could be appreciated. ASSESSMENT: 1. Alcohol withdrawal seizure. 2. Respiratory failure. 3. Anemia, multifactorial. 4. Dilated cardiomyopathy. PLAN: Continue current management and one-to-one observation during feeding, and physical therapy, o ut of bed to chair. Canelo Ellison MD cc: [phone] TT: 09/29/2016 23:29:26 Confirmation # [id number] Dictation # [id number]
[2016-09-30] MEDS: Albuterol 0.083% Inhal Sol (2.5 mg/3 mL) UD INH SCH ×4 (07:26→20:53)
[2016-09-30] MEDS: Potassium Chloride 20 mEq ER Tab PO SCH (10:23)
[2016-09-30] MEDS: levETIRAcetam 500 MG in Sodium Chloride 0.9% 100 ML IVPB SCH (10:24)
[2016-09-30] MEDS: Magnesium Oxide 400 mg Tab UD PO SCH ×2 (10:25→17:11)
[2016-09-30] MEDS: Multivitamin Vitamin B Complex (Nephro-Vite) Tab PO SCH (10:28)
--- NOTE | 2016-09-30 18:45 | CP.PCM.PN ---
Subjective - Date & Time of Evaluation Date of Evaluation: 09/30/16 Time of Evaluation: 15:00 - Subjective Subjective: SEEN ON RENAL F/U PASSED SWALLOWING EVAL OFF IVF RENAL FUNCTION AND LYTES ALL WNL Objective - Vital Signs/Intake and Output Vital Signs (last 24 hours): Temp Pulse Resp BP Pulse Ox 97.9 F 96 H 20 129/82 97 09/30/16 18:10 09/30/16 18:10 09/30/16 18:10 09/30/16 18:10 09/30/16 18:10 - Medications Medications: Current Medications Acetaminophen (Tylenol 325mg Tab) 650 mg PO Q8 PRN PRN Reason: Pain, moderate (4-7) Last Admin: 09/30/16 15:41 Dose: 650 mg Albuterol Sulfate (Albuterol 0.083% Inhal Madelin (2.5 Mg/3 Ml) Ud) 2.5 mg INH RQID [facility] Last Admin: 09/30/16 16:11 Dose: 2.5 mg Amiodarone HCl (Cordarone) 200 mg PO BID [facility] Last Admin: 09/30/16 17:10 Dose: 200 mg Ascorbic Acid (Vitamin C 500 Mg Tab) 1,000 mg PO DAILY [facility] Last Admin: 09/30/16 10:27 Dose: 1,000 mg Lactulose (Enulose) 20 gm PO DAILY [facility] Last Admin: 09/30/16 10:23 Dose: 20 gm Levetiracetam (Keppra) 500 mg PO Q12 [facility] Last Admin: 09/30/16 15:41 Dose: 500 mg Magnesium Oxide (Mag-Ox) 400 mg PO BID [facility] Last Admin: 09/30/16 17:11 Dose: 400 mg Potassium Chloride (K-Dur 20 Meq Er Tab) 20 meq PO DAILY [facility] Last Admin: 09/30/16 10:23 Dose: 20 meq Quetiapine Fumarate (Seroquel) 50 mg PO Q8H [facility] Last Admin: 09/30/16 15:42 Dose: 50 mg Vitamin B Complex/Vit C/Folic Acid (Nephro-Sarai) 1 tab PO DAILY [facility] Last Admin: 09/30/16 10:28 Dose: 1 tab - Labs Labs: 09/29/16 08:31 09/29/16 08:31 PT 13.1 SECONDS (9.6-11.2) H 09/24/16 06:02 INR 1.26 (0.92-1.08) H 09/24/16 06:02 APTT 23.3 SECONDS (23.3-32.5) 09/24/16 06:02 Assessment and Plan - Assessment and Plan (Free Text) Assessment: NONA .. RENAL FUNCTION STABLE ELECTROLYTES R OK C/O CURRENT CARE
[2016-10-01] MEDS: Albuterol 0.083% Inhal Sol (2.5 mg/3 mL) UD INH SCH ×4 (07:18→19:18)
[2016-10-01] MEDS: Potassium Chloride 20 mEq ER Tab PO SCH (09:41)
[2016-10-01] MEDS: Multivitamin Vitamin B Complex (Nephro-Vite) Tab PO SCH (09:42)
[2016-10-01] MEDS: Magnesium Oxide 400 mg Tab UD PO SCH ×2 (09:42→17:03)
--- NOTE | 2016-10-01 11:46 | RAD ---
HISTORY: pneumonia COMPARISON: No prior. TECHNIQUE: Chest PA and lateral FINDINGS: LUNGS: No active pulmonary disease. PLEURA: No significant pleural effusion identified. No pneumothorax apparent. CARDIOVASCULAR: Normal. OSSEOUS STRUCTURES: No significant abnormalities. VISUALIZED UPPER ABDOMEN: Normal. OTHER FINDINGS: None. IMPRESSION: No active disease.
--- NOTE | 2016-10-01 12:17 | CP.PCM.PN ---
Subjective - Date & Time of Evaluation Date of Evaluation: 10/01/16 Time of Evaluation: 12:15 - Subjective Subjective: Follow-up chest x-ray was performed this morning to evaluate this patient who had aspiration pneumonia and respiratory failure and had been mechanically ventilated and orally intubated. He had been extubated and was doing well and was transferred to a regular medical floor. He continues to do well and remains afebrile. There is no leukocytosis. He offers no complaint of shortness of breath at rest or cough. A chest x-ray was performed this morning which shows some residual posterobasal infiltrate on the left but otherwise has cleared significantly. On examination there is no findings to suggest any acute ongoing pneumonic process. No pulmonary intervention is needed at this time. The patient should continue physical therapy and deep breathing exercises with a follow-up chest x-ray in another week to document whether this area of infiltrate is clearing. At this time no antibiotic therapy would be required. Objective - Vital Signs/Intake and Output Vital Signs (last 24 hours): Temp Pulse Resp BP Pulse Ox 98.3 F 82 20 137/81 96 10/01/16 08:43 10/01/16 09:40 10/01/16 08:43 10/01/16 09:40 10/01/16 08:43 - Medications Medications: Current Medications Acetaminophen (Tylenol 325mg Tab) 650 mg PO Q8 PRN PRN Reason: Pain, moderate (4-7) Last Admin: 09/30/16 22:15 Dose: 650 mg Albuterol Sulfate (Albuterol 0.083% Inhal Madelin (2.5 Mg/3 Ml) Ud) 2.5 mg INH RQID [facility] Last Admin: 10/01/16 11:05 Dose: Not Given Amiodarone HCl (Cordarone) 200 mg PO BID [facility] Last Admin: 10/01/16 09:40 Dose: 200 mg Ascorbic Acid (Vitamin C 500 Mg Tab) 1,000 mg PO DAILY [facility] Last Admin: 10/01/16 09:43 Dose: 1,000 mg Lactulose (Enulose) 20 gm PO DAILY [facility] Last Admin: 10/01/16 09:41 Dose: Not Given Levetiracetam (Keppra) 500 mg PO Q12 [facility] Last Admin: 10/01/16 09:41 Dose: 500 mg Magnesium Oxide (Mag-Ox) 400 mg PO BID [facility] Last Admin: 10/01/16 09:42 Dose: 400 mg Potassium Chloride (K-Dur 20 Meq Er Tab) 20 meq PO DAILY [facility] Last Admin: 10/01/16 09:41 Dose: 20 meq Quetiapine Fumarate (Seroquel) 50 mg PO Q8H [facility] Last Admin: 10/01/16 05:20 Dose: 50 mg Vitamin B Complex/Vit C/Folic Acid (Nephro-Sarai) 1 tab PO DAILY [facility] Last Admin: 10/01/16 09:42 Dose: 1 tab - Labs Labs: 09/29/16 08:31 09/29/16 08:31 PT 13.1 SECONDS (9.6-11.2) H 09/24/16 06:02 INR 1.26 (0.92-1.08) H 09/24/16 06:02 APTT 23.3 SECONDS (23.3-32.5) 09/24/16 06:02 Assessment and Plan (1) Congestive cardiomyopathy Status: Chronic (2) Altered mental status Status: Chronic
--- NOTE | 2016-10-01 19:11 | PN ---
DATE: 10/01/2016 He is alert and awake. The patient stated that he feels hungry, and he would like to eat not choppe d or pureed foods. Blood pressure is 130/70, temperature 98.2, respiratory rate 18, and pulse is 76. HEENT: Pupils equal, reactive to light. Normal-appearing mucosa of the conjunctivae, oropharyngeal, and nasal membrane mucosa. NECK: Supple, no JVD, no carotid bruit, no lymph node, no thyromegaly. CHEST AND LUNGS: Bilateral symmetrical expansion. Good air exchange. No rales, no rhonchi. CARDIOVASCULAR SYSTEM: PMI not localized. S1, S2. No additional sounds. ABDOMEN: Normoactive bowel sounds, no tenderness, no organomegaly, no masses. EXTREMITIES: No cyanosis, no clubbing, no edema. CENTRAL NERVOUS SYSTEM: Alert, awake, oriented x 2. No neurological deficits could be appreciated. ASSESSMENT: 1. Status post respiratory failure secondary to alcohol withdrawal seizures. 2. Dilated cardiomyopathy. 3. Anemia, multifactorial. 4. Aspiration pneumonia. PLAN: Continue current physical therapy and management, and when will advanced diet with 1:1 feeder for aspiration precautions. Canelo Ellison MD cc: [phone] TT: 10/01/2016 19:10:26 Confirmation # [id number] Dictation # [id number]
[2016-10-02] MEDS: Albuterol 0.083% Inhal Sol (2.5 mg/3 mL) UD INH SCH ×4 (07:15→19:05)
[2016-10-02] MEDS: Multivitamin Vitamin B Complex (Nephro-Vite) Tab PO SCH (11:14)
[2016-10-02] MEDS: Magnesium Oxide 400 mg Tab UD PO SCH ×2 (11:16→17:34)
[2016-10-02] MEDS: Potassium Chloride 20 mEq ER Tab PO SCH (11:16)
[2016-10-02] MEDS: guaiFENesin DM 100 mg-10 mg/5 ml UD PO SCH ×3 (15:52→21:45)
[2016-10-03] MEDS: Albuterol 0.083% Inhal Sol (2.5 mg/3 mL) UD INH SCH ×4 (07:38→19:07)
--- NOTE | 2016-10-03 07:53 | PN ---
DATE: 09/30/2016 SUBJECTIVE: The patient is seen today, 09/30/2016. He is appropriate, and he is cooperative. PHYSICAL EXAMINATION: VITAL SIGNS: Blood pressure is 129/77, temperature 97, respiratory rate 20, and pulse 90. HEENT: Pupils equal, reactive to light. Normal-appearing mucosa of the conjunctivae and . NECK: No carotid bruit, no lymph node, no thyromegaly. CHEST AND LUNGS: . No rhonchi. CARDIOVASCULAR: . No additional sounds. ABDOMEN: Normoactive bowel sounds, no tenderness, no organomegaly, no masses. EXTREMITIES: No cyanosis, no clubbing, no edema. CENTRAL NERVOUS SYSTEM: Alert, awake, oriented x 2. No neurological deficits could be appreciated. ASSESSMENT: 1. Alcohol withdrawal seizure. 2. Dilated cardiomyopathy. 3. Status post respiratory failure with frequent intubation and extubation. RECOMMENDATIONS: , physical therapy, . Canelo Ellison MD cc: [phone] TT: 10/01/2016 03:37:45 Confirmation # [id number] Dictation # [id number]
[2016-10-03 08:45] VITALS: RESP 20
[2016-10-03] MEDS: Potassium Chloride 20 mEq ER Tab PO SCH (09:38)
[2016-10-03] MEDS: Magnesium Oxide 400 mg Tab UD PO SCH ×2 (09:39→16:48)
[2016-10-03] MEDS: Multivitamin Vitamin B Complex (Nephro-Vite) Tab PO SCH (09:40)
[2016-10-03] MEDS: guaiFENesin DM 100 mg-10 mg/5 ml UD PO SCH ×3 (09:40→16:48)
[2016-10-03 12:17] LABS: HEMATOCRIT 33.3 % (35.0-51.0); MEAN CELL VOLUME 90.9 fl (80.0-94.0); MEAN CORPUSCULAR HEMOGLOBIN 30.5 pg (27.0-31.0); MEAN CORPUSCULAR HGB CONC 33.5 g/dL (33.0-37.0); WHITE BLOOD COUNT 7.5 K/uL (4.8-10.8)
[2016-10-03 12:32] LABS: BLOOD UREA NITROGEN 14 mg/dl (9-20); CALCIUM 8.5 mg/dL (8.4-10.2); CARBON DIOXIDE 24 mmol/L (22-30); CHLORIDE 98 mmol/L (98-107); GFR AFRICAN-AMERICAN > 60; GLUCOSE,RANDOM 119 mg/dL (75-110); POTASSIUM 3.9 MMOL/L (3.6-5.0); SODIUM 138 mmol/l (132-148)
--- NOTE | 2016-10-03 15:26 | CP.PCM.PN ---
Subjective - Date & Time of Evaluation Date of Evaluation: 10/03/16 Time of Evaluation: 02:30 - Subjective Subjective: Spoke with Dr. Davenport re EP evaluation Given low LVEF and bouts of VT, does pt need AICD or life vest At this point he is hemodynamically stable Objective - Vital Signs/Intake and Output Vital Signs (last 24 hours): Temp Pulse Resp BP Pulse Ox 97.9 F 95 H 20 101/72 97 10/03/16 08:45 10/03/16 13:50 10/03/16 08:45 10/03/16 09:38 10/03/16 13:50 - Medications Medications: Current Medications Acetaminophen (Tylenol 325mg Tab) 650 mg PO Q8 PRN PRN Reason: Pain, moderate (4-7) Last Admin: 10/01/16 18:28 Dose: 650 mg Albuterol Sulfate (Albuterol 0.083% Inhal Madelin (2.5 Mg/3 Ml) Ud) 2.5 mg INH RQID [facility] Last Admin: 10/03/16 11:08 Dose: 2.5 mg Amiodarone HCl (Cordarone) 200 mg PO BID [facility] Last Admin: 10/03/16 09:38 Dose: 200 mg Ascorbic Acid (Vitamin C 500 Mg Tab) 1,000 mg PO DAILY [facility] Last Admin: 10/03/16 09:40 Dose: 1,000 mg Guaifenesin/Dextromethorphan (Robitussin Dm) 5 ml PO TID [facility] Last Admin: 10/03/16 13:04 Dose: 5 ml Lactulose (Enulose) 20 gm PO DAILY [facility] Last Admin: 10/03/16 09:38 Dose: Not Given Levetiracetam (Keppra) 500 mg PO Q12 [facility] Last Admin: 10/03/16 09:39 Dose: 500 mg Magnesium Oxide (Mag-Ox) 400 mg PO BID [facility] Last Admin: 10/03/16 09:39 Dose: 400 mg Potassium Chloride (K-Dur 20 Meq Er Tab) 20 meq PO DAILY [facility] Last Admin: 10/03/16 09:38 Dose: 20 meq Thiamine HCl (Vitamin B1 Tab) 100 mg PO DAILY [facility] Last Admin: 10/03/16 09:40 Dose: 100 mg Vitamin B Complex/Vit C/Folic Acid (Nephro-Sarai) 1 tab PO DAILY [facility] Last Admin: 10/03/16 09:40 Dose: 1 tab - Labs Labs: 10/03/16 12:13 10/03/16 12:13 PT 13.1 SECONDS (9.6-11.2) H 09/24/16 06:02 INR 1.26 (0.92-1.08) H 09/24/16 06:02 APTT 23.3 SECONDS (23.3-32.5) 09/24/16 06:02
--- NOTE | 2016-10-03 20:01 | CP.PCM.PN ---
Subjective - Date & Time of Evaluation Date of Evaluation: 10/03/16 Time of Evaluation: 15:00 - Subjective Subjective: seen on renal f/u renal function and electrolytes are al ok off ivf Objective - Vital Signs/Intake and Output Vital Signs (last 24 hours): Temp Pulse Resp BP Pulse Ox 97.9 F 95 H 20 121/81 97 10/03/16 08:45 10/03/16 16:47 10/03/16 08:45 10/03/16 16:47 10/03/16 13:50 - Medications Medications: Current Medications Acetaminophen (Tylenol 325mg Tab) 650 mg PO Q8 PRN PRN Reason: Pain, moderate (4-7) Last Admin: 10/01/16 18:28 Dose: 650 mg Albuterol Sulfate (Albuterol 0.083% Inhal Madelin (2.5 Mg/3 Ml) Ud) 2.5 mg INH RQID [facility] Last Admin: 10/03/16 19:07 Dose: 2.5 mg Amiodarone HCl (Cordarone) 200 mg PO BID [facility] Last Admin: 10/03/16 16:47 Dose: 200 mg Ascorbic Acid (Vitamin C 500 Mg Tab) 1,000 mg PO DAILY [facility] Last Admin: 10/03/16 09:40 Dose: 1,000 mg Carvedilol (Coreg) 3.125 mg PO Q12 [facility] Guaifenesin/Dextromethorphan (Robitussin Dm) 5 ml PO TID [facility] Last Admin: 10/03/16 16:48 Dose: 5 ml Lactulose (Enulose) 20 gm PO DAILY [facility] Last Admin: 10/03/16 09:38 Dose: Not Given Levetiracetam (Keppra) 500 mg PO Q12 [facility] Last Admin: 10/03/16 09:39 Dose: 500 mg Magnesium Oxide (Mag-Ox) 400 mg PO BID [facility] Last Admin: 10/03/16 16:48 Dose: 400 mg Metformin HCl (Glucophage) 500 mg PO BIDWM [facility] Potassium Chloride (K-Dur 20 Meq Er Tab) 20 meq PO DAILY [facility] Last Admin: 10/03/16 09:38 Dose: 20 meq Quetiapine Fumarate (Seroquel) 50 mg PO Q8 [facility] Thiamine HCl (Vitamin B1 Tab) 100 mg PO DAILY [facility] Last Admin: 10/03/16 09:40 Dose: 100 mg Vitamin B Complex/Vit C/Folic Acid (Nephro-Sarai) 1 tab PO DAILY [facility] Last Admin: 10/03/16 09:40 Dose: 1 tab - Labs Labs: 10/03/16 12:13 10/03/16 12:13 PT 13.1 SECONDS (9.6-11.2) H 09/24/16 06:02 INR 1.26 (0.92-1.08) H 09/24/16 06:02 APTT 23.3 SECONDS (23.3-32.5) 09/24/16 06:02 Assessment and Plan - Assessment and Plan (Free Text) Assessment: c/o current care
--- NOTE | 2016-10-03 23:21 | CP.PCM.PCO ---
Addendum Addendum: 10/03/16 23:20 Paged by RN due to patient wanting to sign out AMA. Patient seen at bedside. Patient states he has been told he can leave. On review of chart, noted severe CHF with EF of 15-20% that is currently being evaluated for possible AICD/lifevest. Patient states he was never aware of this and is very fustrated as patient has been here for a significant period of time in which is affecting his work schedule and means of living. Explained to patient that this procedure is very critical and can be life saving. Patient should speak with either PCP or pharmaceutical scientist for further recommendations. Informed patient that possible delay may have been due to hemodynamic status. Patient continues to be fustrated though does not appear to be a danger to staff or himself at this time. Therefore will not renew 1:1 at this time. Patient agreed to staying tonight though would like something to help him sleep due to this increased fustration.
[2016-10-04] MEDS: Albuterol 0.083% Inhal Sol (2.5 mg/3 mL) UD INH SCH ×2 (07:45→11:04)
[2016-10-04 08:56] VITALS: BP 108/69; PULSE 74; TEMP 98.8; O2SAT 97
--- NOTE | 2016-10-04 09:11 | PN ---
DATE: 10/03/2016 SUBJECTIVE: The patient is seen today, 10/03/2016. He is able to ambulate and he tolerated a regula r diet PHYSICAL EXAMINATION: VITAL SIGNS: Blood pressure is 121/81, temperature 97.9, respiratory rate 20 and pulse is 95. HEENT: Pupils equal, reactive to light. Normal-appearing mucosa of the conjunctivae, oropharynx ___ __ NECK: Supple. No JVD, no carotid bruit, no lymph node, no thyromegaly. CHEST AND LUNGS: Bilateral symmetrical expansion, good air exchange, no rales, no rhonchi. CARDIOVASCULAR: PMI not localized. S1, S2. No additional sounds. ABDOMEN: Normoactive bowel sounds, no tenderness, no organomegaly, no masses. EXTREMITIES: No cyanosis, no clubbing, no edema. CENTRAL NERVOUS SYSTEM: Alert, awake, oriented x 2. No neurological deficits could be appreciated. ASSESSMENT: 1. Dilated cardiomyopathy, likely alcoholic. 2. Status post . 3. Respiratory failure. 4. with hemoglobin A1c 7.5. PLAN: 1. We will start the patient is on Coreg 3.125 mg twice a day. 2. Electrophysiology consult. 3. We will start the patient also on anti-hyperglycemic medications. Canelo Ellison MD cc: 167 TT: 10/04/2016 09:10:46 Confirmation # [id number] Dictation # [id number]
[2016-10-04] MEDS: Potassium Chloride 20 mEq ER Tab PO SCH (09:54)
[2016-10-04] MEDS: Magnesium Oxide 400 mg Tab UD PO SCH (09:55)
[2016-10-04] MEDS: Multivitamin Vitamin B Complex (Nephro-Vite) Tab PO SCH (09:55)
[2016-10-04] MEDS: guaiFENesin DM 100 mg-10 mg/5 ml UD PO SCH (09:55)
--- NOTE | 2016-10-04 14:25 | CON ---
DATE: 10/04/2016 REASON FOR EVALUATION: 1. Dilated cardiomyopathy. 2. History of ventricular tachycardia. 3. History of alcohol abuse. HISTORY OF PRESENT ILLNESS: The patient is a 51-year-old male with a past medical history significant for significant alcohol abuse who initially presented to [facility] with altered mental status, seizure activity, found to be a heavy, heavy alcoholic. He had altered menta l status and thrombocytopenia. Ultimately, required ICU admission. Initially seen in consultation b matthew Turner on the . Underwent echocardiogram which shows significant LV dysfunction with an eje ction fraction of 15% to 20%, severe generalized hypokinesia. Mildly dilated left ventricle. No sig nificant aortic valvular disease, but there was severe mitral regurgitation. On telemetry in the ICU, had runs of ventricular tachycardia, which ultimately did respond to amiodar one therapy. The patient's mental status did improve with clinical improvement. Mental status also improved. The patient was discharged off telemetry and was put on tele floor, had been doing relativ ashutosh well in his recovery. Underwent neuro followup as well as general medical followup and is approa codey discharge status. I was asked to see him in regards to further EP evaluation and management. The patient prior to this admission appeared to be a functional alcoholic. 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 No prior palpitations, chest pain or shortness of breath is noted. The patient has passed out in the past, but as per the patient usually related to alcohol-related reasons. A 12-lead EKG which was done on the shows left atrial abnormality. Diminutive R-waves across the limb leads, poor precordial R-wave progression with inverted T-waves throughout the precordium. The patient underwent a CT of the chest on 09/14/2016, which showed unremarkable thoracic aorta, no ane urysm. Heart mildly enlarged. No vascular congestion. Moderate bilateral pleural effusions are see n. No soft tissue findings. There was atelectasis in the right middle lobe. PHYSICAL EXAMINATION: GENERAL: The patient is in no acute distress. Able to speak in complete sentences and is somewhat a gitated, insisting on needing to go home. HEENT: Head is normocephalic, atraumatic. There is no yosi facial asymmetry. He does wear glasses . He is poorly kept. Mucous membranes appear moist. NECK: Supple. No jugular venous distention. CHEST: Clear to auscultation bilaterally. CARDIOVASCULAR: Regular rate and rhythm. S1, S2. No S3 or S4. ABDOMEN: Soft, nontender, nondistended. Positive bowel sounds. EXTREMITIES: No cyanosis, clubbing or edema. Peripheral pulses are 2+ and symmetric in bilateral up per and lower extremities. He is alert and oriented x 3, appears to have decision making capacity. LABORATORY DATA: On review of relevant lab work, patient has a white count of 5.3, H and H of 11.5 a nd 35.4, platelets of 46. Sodium is 145, potassium is 3.9. BUN and creatinine is 14 and 1.2 respect ively. ALT and AST last checked is 44 and 54 respectively. Alk phos is 212. ASSESSMENT AND PLAN: 1. The patient with dilated cardiomyopathy with severely depressed ejection fraction in the setting of altered mental status, severe alcohol , hypertension and diabetes. The patient at this point was noted to have ventricular tachycardia on admission. The patient's condition appears to have imp roved and is currently maintained on reasonable medical therapy, which includes amiodarone 200 mg twi ce a day, which can be decreased to 200 mg once a day; carvedilol 3.125 mg b.i.d. If blood pressure allows, the patient may be initiated on low dose KELSEY inhibitor as well. He is strongly counseled to continue alcohol cessation since he has been here in the hospital. In terms of further management f rom an electrophysiologic standpoint, I have discussed the risk of sudden in the setting of di lated cardiomyopathy. I insisted that he remains compliant with medications, that he does not drink anymore. I have discussed with him the possibility of putting on a LifeVest, which may help prevent sudden cardiac in the waiting period to see if he responds to medical therapy, which is a perio d of 3 months. If there is improvement of his left ventricular ejection fraction that is greater th an 35%, then the likelihood of sudden cardiac would be lower. The patient may be a defibrillat or candidate for primary prevention or perhaps secondary prevention of sudden cardiac if he hernandez s not improve in terms of his left ventricular ejection fraction. One may also consider intervention from a valvular percent if a repeat echocardiogram did not show improvement of his mitral regurgitati on. At this point, he is deferring the option of a LifeVest, wishes to continue medical therapy, to follow up closely with Dr. Turner and if appropriate implant a defibrillator. 2. History of ventricular tachycardia. Would continue amiodarone, albeit it a lower dose. The lorraine herson of followup is somewhat questionable. 3. History of EtOH abuse which he is strongly counseled to stop drinking. 4. Severe mitral regurgitation. Further management as per Dr. Turner. 5. Thrombocytopenia, which is certainly an operative concern, if and when it comes time to put in a defibrillator. 6. Hypokalemia, which should be replaced to levels greater than 4.0. Thank you for allowing me to participate in the care of your patient. Please do not hesitate to call for any questions in regards to his care. Juan Luis Davenport MD cc: [phone] TT: 10/04/2016 14:24:34 Confirmation # [id number] Dictation # [id number]
--- NOTE | 2016-10-05 10:25 | DS ---
REASON FOR ADMISSION: This is a 51-year-old male who has history of ETOH abuse, was admitt ed for alcohol withdrawal seizure, as well as aspiration pneumonia. COURSE OF HOSPITALIZATION: The patient was admitted initially to medical floor and patient started t o have severe withdrawal symptoms for which he was transferred to intensive care unit. The patient w as eventually intubated and placed on sedation. The patient continued to have seizures during this h ospitalization and he had a neurology consultation done by Dr. Quintero and seizure medications were adju sted. The patient had also a pulmonary consultation done by Dr. Villagran and cardiology consultation do ne by Dr. Turner. The patient's echocardiogram showed severe dilated cardiomyopathy. The patient was intubated and extubated multiple times. Eventually patient was extubated and transferred to the [facility] or where he was started on physical therapy and feeding. The patient was discharged home to continue Coreg 3.125 mg twice a day, metformin 500 mg twice a day, multivitamin and thiamine 100 mg daily. FINAL DIAGNOSES: 1. Alcohol withdrawal seizures. 2. Aspiration pneumonia. 3. Respiratory failure. 4. Type 2 diabetes mellitus. 5. Severe dilated cardiomyopathy. The patient is going to follow up with cardiology on . Canelo Ellison MD cc: [phone] TT: 10/05/2016 10:24:01 leslie
--- NOTE | 2016-10-05 13:34 | PQF SEPSIS ---
This form is a permanent part of the medical record DR. HEATHER VARGHESE: COULD YOU PLEASE CLARIFY IF SEPIS WAS RULED IN OR OUT AND IF PRESENT ON ADMISSION. Clarification of your documentation is requested to better reflect the severity of illness and intensity of treatment of your patient. Indicators present [] Temp < 96.8 or > 100.4 [] WBC count > 12,000/mm3 or <000/mm3 or 10% immature neutrophils [] Heart Rate > 90 [] Respiratory Rate > 20 [] Fever or hypothermia [] Chills [] Positive blood cultures [] Hypotension [] Metabolic acidosis (Elevated lactate level, anion gap or reduced blood pH) [] Acute confusion /Altered Mental Status [] Shock [] Other: [] Location in the medical record that reflects the above clinical findings: [] Treatment Provided: [] PHYSICIAN'S RESPONSE Based on your medical judgment of the clinical indicators outlined above, are you treating this patient for a known or suspected: [] Sepsis / Septicemia Please specify organism if known [] [] SIRS (Systemic Inflammatory Response Syndrome) [] Severe Sepsis (Sepsis with Associated Organ Dysfunction) [] Fever of Unknown Origin [] Other, please indicate: [] [] If Unable to Determine, please check the box, sign and date. Present On Admission (POA) Indicator: [] Present at the time of admission [] Not present at the time of admission [] Clinically Undetermined In responding to this query, please exercise your independent professional judgment. The fact that a question is asked does not imply that any particular answer is desired or expected. Thank you for your clarification on this documentation. If you have any questions please call:[ ] * Thank you, * VIELKA VENTURA [ [phone] tool machine set up operator ABNER
== END 2016-10-04 14:38 | disposition home health service (06) | DRG 207 ==
LOC: H.ER 02:36 → H.ERHOLD 06:23 → H.TEL 08:52 → OBSVTOIN 11:52 → H.TEL 08-31 02:45 → H.ICU/CCU 08-31 17:41 → H.MEDSURG1 09-27 16:48
PROVIDERS: ADMIT Internal Medicine; ATTEND Internal Medicine
PROC: 0BH17EZ Insertion of Endotracheal Airway into Trachea, Via Natural or Artificial Opening (ICD-10-PCS; principal; 2016-09-05)
PROC: 5A1955Z Respiratory Ventilation, Greater than 96 Consecutive Hours (ICD-10-PCS; 2016-09-05)
DX: J69.0 Pneumonitis due to inhalation of food and vomit (principal); I50.41 Acute combined systolic (congestive) and diastolic (congestive) heart failure; G93.41 Metabolic encephalopathy; J90 Pleural effusion, not elsewhere classified; I47.2 Ventricular tachycardia; J96.02 Acute respiratory failure with hypercapnia; J96.01 Acute respiratory failure with hypoxia; G40.89 Other seizures; I48.91 Unspecified atrial fibrillation; I49.01 Ventricular fibrillation; N17.9 Acute kidney failure, unspecified; E87.0 Hyperosmolality and hypernatremia; I42.6 Alcoholic cardiomyopathy; F10.231 Alcohol dependence with withdrawal delirium; K50.90 Crohn's disease, unspecified, without complications; I13.0 Hypertensive heart and chronic kidney disease with heart failure and stage 1 through stage 4 chronic kidney disease, or unspecified chronic kidney disease; E87.1 Hypo-osmolality and hyponatremia; I42.0 Dilated cardiomyopathy; M62.82 Rhabdomyolysis; D69.59 Other secondary thrombocytopenia; E11.22 Type 2 diabetes mellitus with diabetic chronic kidney disease; E87.6 Hypokalemia; Z87.891 Personal history of nicotine dependence; K70.30 Alcoholic cirrhosis of liver without ascites; N18.9 Chronic kidney disease, unspecified; Y90.0 Blood alcohol level of less than 20 mg/100 ml; D63.8 Anemia in other chronic diseases classified elsewhere

== ENCOUNTER 2017-06-03 20:26 | Inpatient (IN) | payer OTHER ==
[2017-06-03 20:26] VITALS: BMI 31.5
[2017-06-03] MEDS ORDERED: Sodium Chloride 0.9% 1,000 ML IV STA ×2 (21:09→22:21)
[2017-06-03] MEDS ORDERED: Morphine 4 MG/ML VIAL IVP ONE ×2 (21:09→23:30)
[2017-06-03] MEDS ORDERED: Morphine 4 MG/ML VIAL ONE ×2 (21:29→23:20)
--- NOTE | 2017-06-03 21:40 | ED PDOC ---
HPI:Nausea, Vomiting, Diarrhea Chief Complaint (Provider): Vomiting History Per: Patient History/Exam Limitations: no limitations Onset/Duration Of Symptoms: Days Current Symptoms Are (Timing): Still Present Context: Food Quality Of Discomfort: Cramping, "Pain" Associated Symptoms: Vomiting, Constipation Alleviating Factors: None Last Bowel Movement: Days Ago Additional Complaint(s): Keith Marx is a 51 yo M with PMH Crohn's disease, HTN, DM2 and HF with ejection fraction ~35%, presented to ED today 06/03/17 with complaint of persistent vomiting x2 days. He is unable to quantify the number of times he has vomited, describes the vomit as bilious but non-bloody. States that the morning after Thanksgiving dinner he was unable to have a BM; took a laxative and was able pass BM that was mostly water. States vomiting started Monday morning as well, and he has been unable to keep anything down, including drinks like Gatorade. States he has been feeling crampy pain in his abdomen and extremities on and off. He was hospitalized here in 08/2016 for alcohol withdrawal seizures and was found to have EF of 15%. As per last documentation, his EF is now ~35%. Pt states he is due to get a pacemaker on 06/08. Does not take any disease modifying drugs for Crohn's; states "they don't work for me" PMD: Dr. Ellison Past Med hx: Crohn's, HTN, DM2, heart failure Past Surg hx: appendectomy, bowel resection at ileum Social hx: former smoker, former cocaine user. Hx of alcohol abuse, quit from to 03/26, now drinks beer. Fam hx: noncontributory Allergies: ibuprofen Meds: trajenda, metoprolol, sacubitril/valsartan <Roselia Miranda - Last Filed: 06/04/17 01:30> <Yariel Lovell - Last Filed: 06/04/17 01:46> Time Seen by Provider: 06/03/17 20:48 Chief Complaint (Nursing): Dizziness/Lightheaded Past Medical History Vital Signs: Last Vital Signs Temp 97.5 F L 06/03/17 20:36 Pulse 109 H 06/03/17 20:36 Resp 18 06/03/17 20:36 BP 120/99 H 11/25/17 20:36 Pulse Ox 99 06/03/17 20:36 - Medical History PMH: CHF, Crohn's Disease, Diabetes, HTN, Seizures Denies: HIV, Chronic Kidney Disease - Surgical History Surgical History: Appendectomy, Hernia Repair (hernia present and large abdominal scar (well healed visible)) Denies: Pacemaker Other surgeries: bowel resection at ileum - Family History Family History: States: Unknown Family Hx - Social History Alcohol: Other (alcohol abuse in past, now drinks beer occasionally) Drugs: Other (hx cocaine use) <Roselia Miranda - Last Filed: 06/04/17 01:30> Vital Signs: Last Vital Signs Temp 97.5 F L 06/03/17 20:36 Pulse 109 H 06/03/17 20:36 Resp 18 06/03/17 20:36 BP 120/99 H 06/03/17 20:36 Pulse Ox 99 06/03/17 23:00 <Yariel Lovell - Last Filed: 06/04/17 01:46> - Home Medications Home Medications: Ambulatory Orders Medication Instructions Recorded Ascorbic Acid [Vitamin C 500 mg 1,000 mg PO DAILY #30 tab 10/04/16 Tab] Magnesium Oxide [Mag-Ox] 400 mg PO BID #30 tab 10/04/16 Thiamine [Vitamin B1 Tab] 100 mg PO DAILY #30 tab 10/04/16 Linagliptin [Tradjenta] 5 mg PO QAM 04/13/17 Metoprolol Tartrate [Lopressor] 50 mg PO QAM 04/13/17 Sacubitril/Valsartan [Entresto 24 1 tab PO QAM 04/13/17 mg-26 mg] - Allergies Allergies/Adverse Reactions: Allergies Allergy/AdvReac Type Severity Reaction Status Date / Time ibuprofen [From Motrin] AdvReac Mild NAUSEA/STOMACH Verified 04/13/17 10:55 DISCOMFORT Review of Systems ROS Statement: Except As Marked, All Systems Reviewed And Found Negative Gastrointestinal: Positive for: Vomiting, Constipation Musculoskeletal: Positive for: Other (cramps) <Roselia Miranda - Last Filed: 06/04/17 01:30> Physical Exam - Physical Exam Appears: Positive for: In Acute Distress Head Exam: Positive for: ATRAUMATIC, NORMOCEPHALIC Skin: Positive for: Normal Color, Warm, Dry Eye Exam: Positive for: Normal appearance, EOMI ENT: Positive for: Other (hoarse voice) Neck: Positive for: Supple Cardiovascular/Chest: Positive for: Regular Rate, Rhythm. Negative for: Murmur Respiratory: Positive for: Normal Breath Sounds. Negative for: Respiratory Distress Gastrointestinal/Abdominal: Positive for: Bowel Sounds, Hernia, Other (left sided paraumbilical scar). Negative for: Tenderness Extremity: Negative for: Tenderness, Pedal Edema, Deformity Neurologic/Psych: Positive for: Alert, resident care spec II-XII <Roselia Miranda - Last Filed: 06/04/17 01:30> - Laboratory Results Result Diagrams: 06/03/17 21:48 06/03/17 21:48 - ECG O2 Sat by Pulse Oximetry: 99 <Roselia Miranda - Last Filed: 06/04/17 01:30> - Laboratory Results Result Diagrams: 06/03/17 21:48 06/03/17 21:48 - Critical Care Total Time (In Min): 60 <Yariel Lovell - Last Filed: 06/04/17 01:46> Medical Decision Making Medical Decision MakinL NS bolus 4mg zofran IVP 4mg morphine IVP EKG CMP Lactate Lipase CBC PT/INR/PTT EtOH Utox CT abd and pelvis with IV contrast Chest X ray 2040 BUN 39, Cr 4.3 Lactate 5.5 PT 13.2, PTT 37.2 CT will be done with PO and not IV contrast due to acute kidney injury ABG CT at 00:25 Repeat lactate from ABG 2.9. 01:[address] Beaver from [facility]; pt has SBO and likely incarcerated hernia Dr. Lovell spoke with Dr. Bates, vice president of recruiting; surgery will eval pt. Dr. Lovell spoke with Dr. Moses for admitting pt to ICU. Blood cultures drawn Zosyn ordered Cardiology consult Surgery consult Nephrology consult <Roselia Miranda - Last Filed: 06/04/17 01:30> Medical Decision Making: Time: 23:[address] Ellison, who will be admitting the patient under his service. CT Abdomen/Pelvis with PO contrast: FINDINGS: Lower thorax: Scarring within the lingula, right lower lobe, and left lower lobe. The scarring within the left lower lobe is somewhat nodular in appearance measuring up to 10 mm. Superimposed subpleural reticular opacities within the dependent aspect of the lower lobes may represent subsegmental atelectasis or may also represent scarring. ABDOMEN: Liver: There is a diffuse decrease in hepatic parenchymal density, consistent with fatty infiltration. Gallbladder and bile ducts: The gallbladder is normal. No calcified stones. No ductal dilation. Pancreas: The pancreas is normal. No ductal dilation. Spleen: The spleen is normal. Adrenals: The adrenal glands are normal. Kidneys and ureters: Small lower pole collecting system calcifications measuring 4 mm on the right and 3 mm on the left. No hydronephrosis. Trace bilateral perinephric fat stranding is likely senescent. The ureters are normal. Stomach and bowel: The large bowel is decompressed. Status post long segment small bowel resection with right upper quadrant anastomosis. Mild diverticulosis is present in the sigmoid and descending colon. Small bowel containing ventral hernia protruding through a 6.5 cm x 5.8 cm fascial defect. Nonspecific areas of internal calcification present adjacent to the bowel within this hernia. The hernia has a bilobed appearance and measures up to 13.8 cm in craniocaudal dimension. Diffuse small bowel dilation involving the jejunum and remaining ileum proximal to the hernia. A small portion of non-resected small bowel is present distal to the hernia and prior to the anastomosis which is partially decompressed. No mucosal thickening. Appendix: The appendix is not visualized and is likely surgically absent. PELVIS: Bladder: The bladder is decompressed but otherwise normal. Reproductive: The prostate gland and seminal vesicles are normal. ABDOMEN and PELVIS: Intraperitoneal space: Normal. No free air. No significant fluid collection. Bones/joints: Diffuse thoracolumbar spondylosis. No acute osseous abnormality. No dislocation. Soft tissues: Normal. Vasculature: Flat and appearance of the IVC. No abdominal aortic aneurysm. Lymph nodes: Normal. No enlarged lymph nodes. IMPRESSION: 1. Small bowel containing ventral hernia which is likely incarcerated ( nonreducible). No bowel perforation or abscess. 2. Small bowel obstruction proximal to the hernia. 3. Postoperative changes of the abdomen with long segment small bowel resection. Limited remaining distal small bowel is decompressed beyond the hernia. 4. Nonspecific pulmonary scarring with a nodular appearance within the left lower lobe. The nodular component measures 10 mm. For low-risk or high-risk patients consider a follow- up chest CT at 3 months. If unchanged consider an additional follow-up CT at 18-24 months. Alternatively (or additionally) PET/CT or tissue sampling could be performed. 5. Flattening of the IVC. Correlate with hemodynamic status for hypovolemia and/ or hypotension. Thank you for allowing us to participate in the care of your patient. Dictated and Authenticated by: Shine Beaver DO 06/04/2017 12:48 AM Eastern Time ([place] & [place]) <Yariel Lovell - Last Filed: 06/04/17 01:46> Disposition - Patient ED Disposition Is Patient to be Admitted: Yes Discussed With DrLeo: Scott Moses Comment: Also discussed with pt's PMD Dr. Ellison - Disposition Disposition Time: 01:15 - Pt Status Changed To: Hospital Disposition Of: Inpatient - Admit Certification Admit to Inpatient:: After my assessment, the patient will require hospitalization for at least two midnights. This is because of the severity of symptoms shown, intensity of services needed, and/or the medical risk in this patient being treated as an outpatient. <Roselia Miranda - Last Filed: 06/04/17 01:30> - Patient ED Disposition Is Patient to be Admitted: Yes - Pt Status Changed To: Hospital Disposition Of: Inpatient - Admit Certification Admit to Inpatient:: After my assessment, the patient will require hospitalization for at least two midnights. This is because of the severity of symptoms shown, intensity of services needed, and/or the medical risk in this patient being treated as an outpatient. <Yariel Lovell - Last Filed: 06/04/17 01:46> - Clinical Impression Clinical Impression: Incarcerated hernia, Small bowel obstruction, Acute kidney injury, Dehydration , Lactic acid acidosis - Disposition Condition: GUARDED
[2017-06-03 22:03] LABS: BASO % 0.3 % (0.0-2.0); EOS % 0.1 % (0.0-4.0); HEMATOCRIT 53.4 % (35.0-51.0); LYMPH # 0.8 K/uL (1.0-4.3); LYMPH % 11.4 % (20.0-40.0); MEAN CELL VOLUME 94.9 fl (80.0-94.0); MEAN CORPUSCULAR HEMOGLOBIN 31.2 pg (27.0-31.0); MEAN CORPUSCULAR HGB CONC 32.9 g/dL (33.0-37.0); MEAN PLATELET VOLUME 10.7 fl (7.2-11.7); MONO # 0.8 K/uL (0.0-0.8); MONO % 12.2 % (0.0-10.0); NEUT # 5.1 K/uL (1.8-7.0); NRBC % 0.3 % (0.0-0.0); WHITE BLOOD COUNT 6.6 K/uL (4.8-10.8)
[2017-06-03 22:09] LABS: PARTIAL THROMBOPLASTIN TIME 37.2 Seconds (25.6-37.1)
[2017-06-03 22:19] LABS: ALCOHOL SERUM < 10 mg/dl (0-10); ALKALINE PHOSPHATASE 161 U/L (38-126); ALT/SGPT 51 U/L (21-72); AST/SGOT 70 U/L (17-59); BILIRUBIN,TOTAL 3.8 mg/dl (0.2-1.3); BLOOD UREA NITROGEN 39 mg/dl (9-20); CARBON DIOXIDE 20 mmol/L (22-30); CHLORIDE 94 mmol/L (98-107); GFR AFRICAN-AMERICAN 18; GLUCOSE,RANDOM 224 mg/dL (75-110); LIPASE 101 U/L (23-300); POTASSIUM 5.1 MMOL/L (3.6-5.0); SODIUM 143 mmol/l (132-148)
[2017-06-03 22:23] LABS: TOTAL PROTEIN 11.8 G/DL (6.3-8.2)
[2017-06-03] MEDS ORDERED: Iohexol 240 (50 ml) PO ONE (22:26)
[2017-06-03 22:35] LABS: ALB/GLOB RATIO 0.9 (1.0-2.1)
[2017-06-03 22:55] LABS: ABG ALLEN TEST YES; ARTERIAL BLOOD GAS HCO3 23.3 mmol/L (21-28); ARTERIAL BLOOD GAS PH 7.41 (7.35-7.45); ARTERIAL BLOOD GAS PO2 66 mm/Hg (80-100)
[2017-06-03] MEDS ORDERED: Sodium Chloride 0.9% 1,000 ML IV SCH (23:30)
[2017-06-04] MEDS ORDERED: Piperacillin/Tazobact 3.375 GM in Sodium Chloride 0.9% 100 ML IV STA (01:02)
--- NOTE | 2017-06-04 01:13 | CP.PCM.CON ---
History of Present Illness - History of Present Illness History of Present Illness: CC: n/v/abd pain HPI: This is a 51 y/o male with MHx significant for Crohn's disease, HTN, DM2, and a cardiomyopathy (with recent EF noted to be 35%, pending ICD 06/08/17), who comes in with 2-3 days of n/v and abdominal pain. Vomit is bilious but nb, there is no blood in the stool either. He stated that his last real BM was . With the vomiting, he has been unable to keep down any PO, including liquids. He has pain in his abdomen, and some cramping pain in extremeties. Denies f/c. Denies CP/SOB. Patient has prior Hx of heavy EtOH use, but no such use currently. Patient does not take any medications for Crohn's PMD: Dr. Scot GUNTER: 14 systems reviewed, negative other than HPI MHx: Crohn's disease, HTN, DM2, cardiomyopathy EF 35%; large ventral hernia SHx: Partial SB resection, appendectomy Allergies: ibuprofen Medications: As per med list Family Hx: Reviewed, no contributory findings Social Hx: Lives with ; Hx of EtOH abuse, quit heavy use 08/26 but still drinks occasionally, Hx of cocaine abuse; no smoking Surrogate: Past Patient History - Infectious Disease Hx of Infectious Diseases: None, C.diff - Past Medical History & Family History Past Medical History?: Yes - Past Social History Alcohol: Other (alcohol abuse in past, now drinks beer occasionally) Drugs: Other (hx cocaine use) - CARDIAC Hx Congestive Heart Failure: Yes Hx Hypertension: Yes Hx Pacemaker: No - PULMONARY Hx Respiratory Disorders: No - NEUROLOGICAL Hx Seizures: Yes - HEENT Hx HEENT Problems: No - RENAL Hx Chronic Kidney Disease: No - ENDOCRINE/METABOLIC Hx Diabetes Mellitus Type 2: Yes - HEMATOLOGICAL/ONCOLOGICAL Hx Human Immunodeficiency Virus (HIV): No - INTEGUMENTARY Hx Dermatological Problems: No - MUSCULOSKELETAL/RHEUMATOLOGICAL Hx Musculoskeletal Disorders: No - GASTROINTESTINAL Hx Crohn's Disease: Yes - GENITOURINARY/GYNECOLOGICAL Hx Genitourinary Disorders: No - PSYCHIATRIC Hx Psychophysiologic Disorder: Yes Hx Substance Use: Yes (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. HX MARIJUANA USE) - SURGICAL HISTORY Hx Appendectomy: Yes - ANESTHESIA Hx Anesthesia Reactions: No Hx Malignant Hyperthermia: No Meds Allergies/Adverse Reactions: Allergies Allergy/AdvReac Type Severity Reaction Status Date / Time ibuprofen [From Motrin] AdvReac Mild NAUSEA/STOMACH Verified 04/13/17 10:55 DISCOMFORT - Medications Medications: Current Medications Sodium Chloride (Sodium Chloride 0.9%) 1,000 mls @ 125 mls/hr IV .Q8H CORTNEY Stop: 06/04/17 23:29 Last Admin: 06/03/17 23:40 Dose: 125 mls/hr Piperacillin Sod/Tazobactam (Sod 3.375 gm/ Sodium Chloride) 100 mls @ 100 mls/ hr IV STAT STA PRN Reason: Protocol Stop: 06/04/17 02:01 Physical Exam - Constitutional Appears: No Acute Distress - Head Exam Head Exam: ATRAUMATIC, NORMOCEPHALIC - Eye Exam Eye Exam: EOMI, PERRL - ENT Exam ENT Exam: Mucous Membranes Dry - Respiratory Exam Respiratory Exam: Clear to Auscultation Bilateral, NORMAL BREATHING PATTERN - Cardiovascular Exam Cardiovascular Exam: REGULAR RHYTHM, +S1, +S2 - GI/Abdominal Exam GI & Abdominal Exam: Hernia, Normal Bowel Sounds, Soft, Tenderness - Extremities Exam Extremities exam: Positive for: full ROM, normal inspection - Back Exam Back exam: NORMAL INSPECTION - Neurological Exam Neurological exam: Alert, CN II-XII Intact, Oriented x3 - Psychiatric Exam Psychiatric exam: Normal Affect, Normal Mood - Skin Skin Exam: Dry, Warm Results - Vital Signs Recent Vital Signs: Last Vital Signs Temp 97.5 F L 06/03/17 20:36 Pulse 109 H 06/03/17 20:36 Resp 18 06/03/17 20:36 BP 120/99 H 06/03/17 20:36 Pulse Ox 99 06/04/17 00:30 - Labs Result Diagrams: 06/03/17 21:48 06/03/17 21:48 Labs: Laboratory Results - last 24 hr 06/03/17 06/03/17 06/03/17 21:48 21:48 21:48 WBC RBC Hgb Hct MCV MCH MCHC RDW Plt Count MPV Neut % (Auto) Lymph % (Auto) [place] % (Auto) Eos % (Auto) Baso % (Auto) Neut # Lymph # [place] # Eos # Baso # PT 13.2 H INR 1.2 APTT 37.2 H pCO2 pO2 HCO3 ABG pH ABG Total CO2 ABG O2 Saturation ABG Base Excess Jim Test ABG Potassium A-a O2 Difference Glucose Lactate FiO2 Sodium 143 Potassium 5.1 H Chloride 94 L Carbon Dioxide 20 L Anion Gap 34 H BUN 39 H Creatinine 4.3 H Est GFR ( Amer) 18 Est GFR (Non-Af Amer) 15 Random Glucose 224 H Lactic Acid 5.5 H* Calcium 11.0 H Total Bilirubin 3.8 H AST 70 H ALT 51 Alkaline Phosphatase 161 H Total Protein 11.8 H Albumin 5.5 H D Globulin 6.3 H Albumin/Globulin Ratio 0.9 L Lipase 101 Arterial Blood Potassium Alcohol, Quantitative < 10 06/03/17 06/03/17 21:48 22:41 WBC 6.6 RBC 5.62 Hgb 17.6 D Hct 53.4 H MCV 94.9 H D MCH 31.2 H MCHC 32.9 L RDW 14.0 Plt Count 156 D MPV 10.7 Neut % (Auto) 76.0 H Lymph % (Auto) 11.4 L [place] % (Auto) 12.2 H Eos % (Auto) 0.1 Baso % (Auto) 0.3 Neut # 5.1 Lymph # 0.8 L [place] # 0.8 Eos # 0.0 Baso # 0.0 PT INR APTT pCO2 35 pO2 66 L HCO3 23.3 ABG pH 7.41 ABG Total CO2 23.3 ABG O2 Saturation 95.4 ABG Base Excess -1.8 Jim Test Yes ABG Potassium 4.4 A-a O2 Difference 40.0 Glucose 182 H Lactate 2.9 H FiO2 21.0 Sodium 136.0 Potassium Chloride 97.0 L Carbon Dioxide Anion Gap BUN Creatinine Est GFR ( Amer) Est GFR (Non-Af Amer) Random Glucose Lactic Acid Calcium Total Bilirubin AST ALT Alkaline Phosphatase Total Protein Albumin Globulin Albumin/Globulin Ratio Lipase Arterial Blood Potassium 4.4 Alcohol, Quantitative - EKG Data EKG Interpreted by: Myself EKG shows normal: Sinus rhythm Rate: Normal - EKG Data EKG comments: ELAINE HERNANDEZ abn - Imaging and Cardiology CT scan - abdomen Status: Report reviewed by me (SBO, incarcerated hernia per prelim read) Assessment & Plan (1) Small bowel obstruction Assessment and Plan: 51 y/o male coming with n/v; found to have incarcerated hernia and SBO as well as ARF. 1) Abd pain/n/v/incarc hernia/sbo -NPO, IVF at 125 cc/hr -Pain medications per scale -Zofran for nausea -Surgical consult pending -Repeat lactic acid in AM -Continue Zosyn IV, renally dosed 2) ARF -- likely 2/2 vol dep from n/v -Gentle IVF -Urine lytes/Cr -Hold renally toxic medications (KELSEY/ARBS), renally dose medications -Nephro consult in AM 3) Cardiomyopathy -Caution with IVF -Will give metoprolol IV for now, given NPO -Cardiology consult in AM 4) DVT PPx -- SCDs only Status: Acute (2) Incarcerated hernia Status: Acute (3) Lactic acid acidosis Status: Acute (4) Acute kidney injury Status: Acute (5) Dehydration Status: Acute (6) Cardiomyopathy Status: Acute (7) DVT prophylaxis Status: Acute (8) DM2 (diabetes mellitus, type 2) Status: Acute
[2017-06-04] MEDS ORDERED: Sodium Chloride 0.9% 250 ML IV ONE ×2 (02:29→21:55)
[2017-06-04] MEDS: Insulin Lispro (humaLOG) 100 Units/ml Inj SC SCH ×4 (03:16→21:42)
[2017-06-04] MEDS ORDERED: Pneumococcal 23-Valent Vaccine IM ONE (03:50)
[2017-06-04] MEDS ORDERED: Metoprolol 1 mg/ml Inj IVP SCH (04:00)
[2017-06-04] MEDS ORDERED: Sodium Chloride 0.9% 500 ML IV ONE ×3 (04:08→21:15)
[2017-06-04 05:30] LABS: BASO % 0.2 % (0.0-2.0); EOS % 0.7 % (0.0-4.0); HEMATOCRIT 45.1 % (35.0-51.0); LYMPH # 0.6 K/uL (1.0-4.3); LYMPH % 10.1 % (20.0-40.0); MEAN CELL VOLUME 94.7 fl (80.0-94.0); MEAN CORPUSCULAR HEMOGLOBIN 31.2 pg (27.0-31.0); MEAN PLATELET VOLUME 10.3 fl (7.2-11.7); MONO # 1.1 K/uL (0.0-0.8); MONO % 18.5 % (0.0-10.0); NEUT # 4.2 K/uL (1.8-7.0); NEUT % 70.5 % (50.0-75.0); NRBC % 0.2 % (0.0-0.0); RED CELL DISTRIBUTION WIDTH 14.1 % (11.5-14.5); WHITE BLOOD COUNT 5.9 K/uL (4.8-10.8)
[2017-06-04 05:44] LABS: CALCIUM 8.9 mg/dL (8.4-10.2); POTASSIUM 4.8 MMOL/L (3.6-5.0)
[2017-06-04 05:45] LABS: BILIRUBIN,TOTAL 2.6 mg/dl (0.2-1.3); MAGNESIUM 1.6 MG/DL (1.6-2.3); TOTAL PROTEIN 9.2 G/DL (6.3-8.2)
[2017-06-04 06:24] LABS: ALB/GLOB RATIO 1.1 (1.0-2.1)
--- NOTE | 2017-06-04 06:57 | CP.PCM.CON ---
History of Present Illness - History of Present Illness History of Present Illness: Gen Sx: Dr Tilley Pt is a 51M w/ PMH of Crohn's disease, HTN, DM2, and a cardiomyopathy (with recent EF noted to be 35%, pending ICD 06/08/17), who comes in with 3 days of n & v accompanied by abdominal pain since thanksgiving dinner. Pt reports emesis is bilious but nb, there is no blood in the stool either, which he continues to have liquid BMs though his last solid one was . Pt reports he has been unable to tolerate PO intake since symptoms started. At time of examination his pain has resolved, he is passing flatus, but continues to have intermittent episodes of emesis. Pt reports his symptoms are similar to previous Crohn's flare ups. Pt has a large ventral hernia which was reducible at bedside. Hernia almost immediately prolapses again within 30 mins, but the defect is large enough that it does not appear to be incarcerated Review of Systems - Review of Systems All systems: reviewed and no additional remarkable complaints except (as per hpi ) Past Patient History - Infectious Disease Hx of Infectious Diseases: None, C.diff - Past Medical History & Family History Past Medical History?: Yes - Past Social History Alcohol: Other (alcohol abuse in past, now drinks beer occasionally) Drugs: Other (hx cocaine use) - CARDIAC Hx Congestive Heart Failure: Yes Hx Hypertension: Yes Hx Pacemaker: No - PULMONARY Hx Respiratory Disorders: No - NEUROLOGICAL Hx Seizures: Yes - HEENT Hx HEENT Problems: No - RENAL Hx Chronic Kidney Disease: No - ENDOCRINE/METABOLIC Hx Diabetes Mellitus Type 2: Yes - HEMATOLOGICAL/ONCOLOGICAL Hx Human Immunodeficiency Virus (HIV): No - INTEGUMENTARY Hx Dermatological Problems: No - MUSCULOSKELETAL/RHEUMATOLOGICAL Hx Musculoskeletal Disorders: No - GASTROINTESTINAL Hx Crohn's Disease: Yes - GENITOURINARY/GYNECOLOGICAL Hx Genitourinary Disorders: No - PSYCHIATRIC Hx Psychophysiologic Disorder: Yes Hx Substance Use: Yes (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. HX MARIJUANA USE) - SURGICAL HISTORY Hx Appendectomy: Yes - ANESTHESIA Hx Anesthesia Reactions: No Hx Malignant Hyperthermia: No Meds Allergies/Adverse Reactions: Allergies Allergy/AdvReac Type Severity Reaction Status Date / Time ibuprofen [From Motrin] AdvReac Mild NAUSEA/STOMACH Verified 04/13/17 10:55 DISCOMFORT - Medications Medications: Current Medications Sodium Chloride (Sodium Chloride 0.9%) 1,000 mls @ 125 mls/hr IV .Q8H CORTNEY Stop: 06/04/17 07:29 Last Admin: 06/03/17 23:40 Dose: 125 mls/hr Piperacillin Sod/Tazobactam (Sod 2.25 gm/ Sodium Chloride) 100 mls @ 100 mls/ hr IVPB Q6 CORTNEY PRN Reason: Protocol Last Admin: 06/04/17 03:07 Dose: 100 mls/hr Insulin Human Lispro (Humalog) 0 units SC Q6H CORTNEY PRN Reason: Protocol Last Admin: 06/04/17 03:16 Dose: Not Given Morphine Sulfate (Morphine) 1 mg IVP Q4 PRN PRN Reason: Pain, Mild (1-3) Morphine Sulfate (Morphine) 2 mg IVP Q4 PRN PRN Reason: Pain, moderate (4-7) Last Admin: 06/04/17 02:21 Dose: 2 mg Ondansetron HCl (Zofran Inj) 4 mg IVP Q6H PRN PRN Reason: Nausea/Vomiting Last Admin: 06/04/17 02:22 Dose: 4 mg Physical Exam - Constitutional Appears: Non-toxic, No Acute Distress - ENT Exam ENT Exam: Mucous Membranes Dry - Respiratory Exam Respiratory Exam: absent: Accessory Muscle Use, Respiratory Distress - Cardiovascular Exam Cardiovascular Exam: Tachycardia - GI/Abdominal Exam GI & Abdominal Exam: Hernia (midline ventral, reducible), Soft. absent: Distended, Firm, Guarding, Tenderness - Neurological Exam Neurological exam: Alert, Oriented x3 - Psychiatric Exam Psychiatric exam: Normal Affect, Normal Mood Results - Vital Signs Recent Vital Signs: Last Vital Signs Temp 97.9 F 06/04/17 01:25 Pulse 87 06/04/17 02:11 Resp 10 L 06/04/17 02:11 BP 126/89 06/04/17 01:25 Pulse Ox 95 06/04/17 02:11 - Labs Result Diagrams: 06/04/17 05:20 06/04/17 05:20 Labs: Laboratory Results - last 24 hr 06/03/17 06/03/17 06/03/17 21:48 21:48 21:48 WBC RBC Hgb Hct MCV MCH MCHC RDW Plt Count MPV Neut % (Auto) Lymph % (Auto) [place] % (Auto) Eos % (Auto) Baso % (Auto) Neut # Lymph # [place] # Eos # Baso # PT 13.2 H INR 1.2 APTT 37.2 H pCO2 pO2 HCO3 ABG pH ABG Total CO2 ABG O2 Saturation ABG Base Excess Jim Test ABG Potassium A-a O2 Difference Glucose Lactate FiO2 Sodium 143 Potassium 5.1 H Chloride 94 L Carbon Dioxide 20 L Anion Gap 34 H BUN 39 H Creatinine 4.3 H Est GFR ( Amer) 18 Est GFR (Non-Af Amer) 15 POC Glucose (mg/dL) Random Glucose 224 H Lactic Acid 5.5 H* Calcium 11.0 H Magnesium Total Bilirubin 3.8 H AST 70 H ALT 51 Alkaline Phosphatase 161 H Total Protein 11.8 H Albumin 5.5 H D Globulin 6.3 H Albumin/Globulin Ratio 0.9 L Lipase 101 Arterial Blood Potassium Alcohol, Quantitative < 10 06/03/17 06/03/17 06/03/17 21:48 22:41 23:04 WBC 6.6 RBC 5.62 Hgb 17.6 D Hct 53.4 H MCV 94.9 H D MCH 31.2 H MCHC 32.9 L RDW 14.0 Plt Count 156 D MPV 10.7 Neut % (Auto) 76.0 H Lymph % (Auto) 11.4 L [place] % (Auto) 12.2 H Eos % (Auto) 0.1 Baso % (Auto) 0.3 Neut # 5.1 Lymph # 0.8 L [place] # 0.8 Eos # 0.0 Baso # 0.0 PT INR APTT pCO2 35 pO2 66 L HCO3 23.3 ABG pH 7.41 ABG Total CO2 23.3 ABG O2 Saturation 95.4 ABG Base Excess -1.8 Jim Test Yes ABG Potassium 4.4 A-a O2 Difference 40.0 Glucose 182 H Lactate 2.9 H FiO2 21.0 Sodium 136.0 Potassium Chloride 97.0 L Carbon Dioxide Anion Gap BUN Creatinine Est GFR ( Amer) Est GFR (Non-Af Amer) POC Glucose (mg/dL) 153 H Random Glucose Lactic Acid Calcium Magnesium Total Bilirubin AST ALT Alkaline Phosphatase Total Protein Albumin Globulin Albumin/Globulin Ratio Lipase Arterial Blood Potassium 4.4 Alcohol, Quantitative 06/03/17 06/04/17 06/04/17 23:33 03:16 05:20 WBC RBC Hgb Hct MCV MCH MCHC RDW Plt Count MPV Neut % (Auto) Lymph % (Auto) [place] % (Auto) Eos % (Auto) Baso % (Auto) Neut # Lymph # [place] # Eos # Baso # PT INR APTT pCO2 pO2 HCO3 ABG pH ABG Total CO2 ABG O2 Saturation ABG Base Excess Jim Test ABG Potassium A-a O2 Difference Glucose Lactate FiO2 Sodium Potassium Chloride Carbon Dioxide Anion Gap BUN Creatinine Est GFR ( Amer) Est GFR (Non-Af Amer) POC Glucose (mg/dL) 129 H Random Glucose Lactic Acid 2.7 H 1.6 Calcium Magnesium Total Bilirubin AST ALT Alkaline Phosphatase Total Protein Albumin Globulin Albumin/Globulin Ratio Lipase Arterial Blood Potassium Alcohol, Quantitative 06/04/17 06/04/17 05:20 05:20 WBC 5.9 RBC 4.76 Hgb 14.9 D Hct 45.1 MCV 94.7 H MCH 31.2 H MCHC 33.0 RDW 14.1 Plt Count 93 L D MPV 10.3 Neut % (Auto) 70.5 Lymph % (Auto) 10.1 L [place] % (Auto) 18.5 H Eos % (Auto) 0.7 Baso % (Auto) 0.2 Neut # 4.2 Lymph # 0.6 L [place] # 1.1 H Eos # 0.0 Baso # 0.0 PT INR APTT pCO2 pO2 HCO3 ABG pH ABG Total CO2 ABG O2 Saturation ABG Base Excess Jim Test ABG Potassium A-a O2 Difference Glucose Lactate FiO2 Sodium 142 Potassium 4.8 Chloride 97 L Carbon Dioxide 24 Anion Gap 26 H BUN 45 H Creatinine 4.6 H Est GFR ( Amer) 16 Est GFR (Non-Af Amer) 13 POC Glucose (mg/dL) Random Glucose 133 H Lactic Acid Calcium 8.9 Magnesium 1.6 Total Bilirubin 2.6 H AST 50 ALT 48 Alkaline Phosphatase 115 Total Protein 9.2 H Albumin 4.7 Globulin 4.5 H Albumin/Globulin Ratio 1.1 Lipase Arterial Blood Potassium Alcohol, Quantitative Assessment & Plan - Assessment and Plan (Free Text) Assessment: 51M with SBO 2/2 ventral hernia vs enteritis vs Crohn's flare up Plan: despite bilious emesis, pt is currently passing flatus, is no longer distended, and denies abdominal pain Unlikely obstruction given the above - hernia reduced at bedside pt may be suffering from mild enteritis if pt continues to vomit will consider NGT placement given extensive comorbidities including his cardiac and liver fx, pt is a poor surgical candidate without significant optimization will cont to treat conservatively in hope he can get his ICD placed on 06/08 prior to any elective surgery d/w Dr Jarek Mccollum, PGY3
--- NOTE | 2017-06-04 07:12 | RAD ---
HISTORY: abd pain COMPARISON: No prior. FINDINGS: LUNGS: No active pulmonary disease. PLEURA: No significant pleural effusion identified, no pneumothorax apparent. CARDIOVASCULAR: Normal. OSSEOUS STRUCTURES: No significant abnormalities. VISUALIZED UPPER ABDOMEN: Normal. OTHER FINDINGS: None. IMPRESSION: No active disease.
--- NOTE | 2017-06-04 09:00 | CT ---
PROCEDURE: CT Abdomen and Pelvis without intravenous contrast HISTORY: abd pain r/o SBO COMPARISON: None. TECHNIQUE: Technique. Contrast Dose: Radiation dose: Total exam DLP = 1131 mGy-cm. This CT exam was performed using one or more of the following dose reduction techniques: Automated exposure control, adjustment of the mA and/or kV according to patient size, and/or use of iterative reconstruction technique. FINDINGS: LOWER THORAX: Nonspecific postinflammatory changes in the left lower lobe with a 1 centimeter subpleural nodule in the left lower lobe. Recommend six-month follow-up CT scan. LIVER: Unremarkable. No gross lesion or ductal dilatation. GALLBLADDER AND BILE DUCTS: Unremarkable. PANCREAS: Unremarkable. No gross lesion or ductal dilatation. SPLEEN: Unremarkable. ADRENALS: Unremarkable. No mass. KIDNEYS AND URETERS: Unremarkable. No hydronephrosis. No solid mass. VASCULATURE: Unremarkable. No aortic aneurysm. BOWEL: Small bowel obstruction proximal to a ventral hernia containing loops of small bowel possibly incarcerated. No bowel perforation or abscess. Postoperative changes of the abdomen with long segment of small bowel resection. Limited remaining distal small bowel decompressed distal to the hernia. APPENDIX: Unremarkable. Normal appendix. PERITONEUM: Unremarkable. No free fluid. No free air. LYMPH NODES: Unremarkable. No enlarged lymph nodes. BLADDER: Unremarkable. REPRODUCTIVE: Unremarkable. BONES: No acute fracture. OTHER FINDINGS: None. IMPRESSION: Small bowel obstruction proximal to a ventral hernia containing loops of small bowel possibly incarcerated. No bowel perforation or abscess. Postoperative changes of the abdomen with long segment of small bowel resection. Limited remaining distal small bowel decompressed distal to the hernia. Nonspecific postinflammatory changes in the left lower lobe with a 1 centimeter subpleural nodule in the left lower lobe. Recommend six-month follow-up CT scan.
--- NOTE | 2017-06-04 13:49 | CP.PCM.CON ---
History of Present Illness - History of Present Illness History of Present Illness: This 51-year-old man is well-known to me. I had seen him during his last hospitalization in September of this year when he was hospitalized and required ventilatory support and manifested evidence of congestive cardiomyopathy. 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 The patient also is a diabetic and has had a history of chronic cigarette use which she has subsequently discontinued. The patient has had a history of ulcerative colitis with a history of small bowel resection in the past. He has had a ventral hernia subsequent to his abdominal surgery. He describes frequent flareups of ulcerative colitis which spontaneously resolved in 24-48 hours. The patient this time there will up severe nausea vomiting and abdominal pain which persisted beyond a day and he eventually came to the emergency room. He describes having constantly vomited for more than 24 hours and had cramps in his extremities and dizziness upon standing up before arriving in the emergency room. While in the hospital he has received intravenous fluid replenishment. There has been no further vomiting for more than 10-12 hours. His abdominal discomfort also has significantly resolved. He denies any chills or fever and denies any bloody stools. Physical examination shows a middle aged man who is able to lie virtually flat and carry on a conversation. He is alert awake and coherent and bleeds at approximately 16-18 breaths per minute and has a heart rate of 74 bpm and regular and a blood pressure of 96/74 mmHg. His jugular venous pressure was not elevated. There was no edema hour his lower extremities. The pedal pulses were distinctive present. Extremities were warm nailbeds are pink there was no central or peripheral cyanosis. The apex was not palpable the first and second heart sounds are normal there was no murmur or gallop there were no rales. His abdomen was soft with vague generalized tenderness. Liver and spleen were not palpable. There was no abdominal mass felt. His electrocardiogram showed sinus rhythm with Q waves in leads 3 and aVF. There was poor progression of R waves from V1 to V3. His lab data indicated that he arrived in the emergency room with significant hemoconcentration which has significantly resolved with IV fluid replenishment. There is no leukocytosis. There is mild thrombocytopenia. His serum lactate level was also 5.5 mOsm which has subsequently dropped below 2 with IV fluids. He still continues to show significant azotemia though his potassium level has gone back to normal. Impression: Acute exacerbation off ulcerative colitis with severe volume depletion and evidence of poor tissue perfusion in the form of acute kidney injury and elevated lactate level. (This is being resolved with intravenous fluid replenishment.) Congestive cardiomyopathy. The patient is scheduled to have an AICD implanted on of this month. Diabetes mellitus and COPD. The patient appears to be improving with IV fluid replenishment. The acute episode of ulcerative colitis also seems to be resolving. The patient is stable from cardiovascular point of view. Past Patient History - Infectious Disease Hx of Infectious Diseases: None, C.diff - Past Medical History & Family History Past Medical History?: Yes - Past Social History Alcohol: Other (alcohol abuse in past, now drinks beer occasionally) Drugs: Other (hx cocaine use) - CARDIAC Hx Congestive Heart Failure: Yes Hx Hypertension: Yes Hx Pacemaker: No - PULMONARY Hx Respiratory Disorders: No - NEUROLOGICAL Hx Seizures: Yes - HEENT Hx HEENT Problems: No - RENAL Hx Chronic Kidney Disease: No - ENDOCRINE/METABOLIC Hx Diabetes Mellitus Type 2: Yes - HEMATOLOGICAL/ONCOLOGICAL Hx Human Immunodeficiency Virus (HIV): No - INTEGUMENTARY Hx Dermatological Problems: No - MUSCULOSKELETAL/RHEUMATOLOGICAL Hx Musculoskeletal Disorders: No - GASTROINTESTINAL Hx Crohn's Disease: Yes - GENITOURINARY/GYNECOLOGICAL Hx Genitourinary Disorders: No - PSYCHIATRIC Hx Psychophysiologic Disorder: Yes Hx Substance Use: Yes (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. HX MARIJUANA USE) - SURGICAL HISTORY Hx Appendectomy: Yes - ANESTHESIA Hx Anesthesia Reactions: No Hx Malignant Hyperthermia: No Meds Allergies/Adverse Reactions: Allergies Allergy/AdvReac Type Severity Reaction Status Date / Time ibuprofen [From Motrin] AdvReac Mild NAUSEA/STOMACH Verified 04/13/17 10:55 DISCOMFORT - Medications Medications: Current Medications Piperacillin Sod/Tazobactam (Sod 2.25 gm/ Sodium Chloride) 100 mls @ 100 mls/ hr IVPB Q6 CORTNEY PRN Reason: Protocol Last Admin: 06/04/17 08:59 Dose: 100 mls/hr Insulin Human Lispro (Humalog) 0 units SC Q6H CORTNEY PRN Reason: Protocol Last Admin: 06/04/17 08:50 Dose: Not Given Morphine Sulfate (Morphine) 1 mg IVP Q4 PRN PRN Reason: Pain, Mild (1-3) Morphine Sulfate (Morphine) 2 mg IVP Q4 PRN PRN Reason: Pain, moderate (4-7) Last Admin: 06/04/17 02:21 Dose: 2 mg Ondansetron HCl (Zofran Inj) 4 mg IVP Q6H PRN PRN Reason: Nausea/Vomiting Last Admin: 06/04/17 10:33 Dose: 4 mg Results - Vital Signs Recent Vital Signs: Last Vital Signs Temp 97.7 F 06/04/17 12:00 Pulse 85 06/04/17 12:00 Resp 12 06/04/17 12:00 BP 80/46 L 06/04/17 12:00 Pulse Ox 95 06/04/17 12:00 - Labs Result Diagrams: 06/04/17 05:20 06/04/17 05:20 Labs: Laboratory Results - last 24 hr 06/03/17 06/03/17 06/03/17 21:48 21:48 21:48 WBC RBC Hgb Hct MCV MCH MCHC RDW Plt Count MPV Neut % (Auto) Lymph % (Auto) [place] % (Auto) Eos % (Auto) Baso % (Auto) Neut # Lymph # [place] # Eos # Baso # PT 13.2 H INR 1.2 APTT 37.2 H pCO2 pO2 HCO3 ABG pH ABG Total CO2 ABG O2 Saturation ABG Base Excess Jim Test ABG Potassium A-a O2 Difference Glucose Lactate FiO2 Sodium 143 Potassium 5.1 H Chloride 94 L Carbon Dioxide 20 L Anion Gap 34 H BUN 39 H Creatinine 4.3 H Est GFR ( Amer) 18 Est GFR (Non-Af Amer) 15 POC Glucose (mg/dL) Random Glucose 224 H Lactic Acid 5.5 H* Calcium 11.0 H Magnesium Total Bilirubin 3.8 H AST 70 H ALT 51 Alkaline Phosphatase 161 H Total Protein 11.8 H Albumin 5.5 H D Globulin 6.3 H Albumin/Globulin Ratio 0.9 L Lipase 101 Arterial Blood Potassium Alcohol, Quantitative < 10 06/03/17 06/03/17 06/03/17 21:48 22:41 23:04 WBC 6.6 RBC 5.62 Hgb 17.6 D Hct 53.4 H MCV 94.9 H D MCH 31.2 H MCHC 32.9 L RDW 14.0 Plt Count 156 D MPV 10.7 Neut % (Auto) 76.0 H Lymph % (Auto) 11.4 L [place] % (Auto) 12.2 H Eos % (Auto) 0.1 Baso % (Auto) 0.3 Neut # 5.1 Lymph # 0.8 L [place] # 0.8 Eos # 0.0 Baso # 0.0 PT INR APTT pCO2 35 pO2 66 L HCO3 23.3 ABG pH 7.41 ABG Total CO2 23.3 ABG O2 Saturation 95.4 ABG Base Excess -1.8 Jim Test Yes ABG Potassium 4.4 A-a O2 Difference 40.0 Glucose 182 H Lactate 2.9 H FiO2 21.0 Sodium 136.0 Potassium Chloride 97.0 L Carbon Dioxide Anion Gap BUN Creatinine Est GFR ( Amer) Est GFR (Non-Af Amer) POC Glucose (mg/dL) 153 H Random Glucose Lactic Acid Calcium Magnesium Total Bilirubin AST ALT Alkaline Phosphatase Total Protein Albumin Globulin Albumin/Globulin Ratio Lipase Arterial Blood Potassium 4.4 Alcohol, Quantitative 06/03/17 06/04/17 06/04/17 23:33 03:16 05:20 WBC RBC Hgb Hct MCV MCH MCHC RDW Plt Count MPV Neut % (Auto) Lymph % (Auto) [place] % (Auto) Eos % (Auto) Baso % (Auto) Neut # Lymph # [place] # Eos # Baso # PT INR APTT pCO2 pO2 HCO3 ABG pH ABG Total CO2 ABG O2 Saturation ABG Base Excess Jim Test ABG Potassium A-a O2 Difference Glucose Lactate FiO2 Sodium Potassium Chloride Carbon Dioxide Anion Gap BUN Creatinine Est GFR ( Amer) Est GFR (Non-Af Amer) POC Glucose (mg/dL) 129 H Random Glucose Lactic Acid 2.7 H 1.6 Calcium Magnesium Total Bilirubin AST ALT Alkaline Phosphatase Total Protein Albumin Globulin Albumin/Globulin Ratio Lipase Arterial Blood Potassium Alcohol, Quantitative 06/04/17 06/04/17 06/04/17 05:20 05:20 11:20 WBC 5.9 RBC 4.76 Hgb 14.9 D Hct 45.1 MCV 94.7 H MCH 31.2 H MCHC 33.0 RDW 14.1 Plt Count 93 L D MPV 10.3 Neut % (Auto) 70.5 Lymph % (Auto) 10.1 L [place] % (Auto) 18.5 H Eos % (Auto) 0.7 Baso % (Auto) 0.2 Neut # 4.2 Lymph # 0.6 L [place] # 1.1 H Eos # 0.0 Baso # 0.0 PT INR APTT pCO2 pO2 HCO3 ABG pH ABG Total CO2 ABG O2 Saturation ABG Base Excess Jim Test ABG Potassium A-a O2 Difference Glucose Lactate FiO2 Sodium 142 Potassium 4.8 Chloride 97 L Carbon Dioxide 24 Anion Gap 26 H BUN 45 H Creatinine 4.6 H Est GFR ( Amer) 16 Est GFR (Non-Af Amer) 13 POC Glucose (mg/dL) 119 H Random Glucose 133 H Lactic Acid Calcium 8.9 Magnesium 1.6 Total Bilirubin 2.6 H AST 50 ALT 48 Alkaline Phosphatase 115 Total Protein 9.2 H Albumin 4.7 Globulin 4.5 H Albumin/Globulin Ratio 1.1 Lipase Arterial Blood Potassium Alcohol, Quantitative
--- NOTE | 2017-06-04 14:12 | CARD ---
APPROVED REPORT EKG Measurement Heart [id number] <Conclusion> Normal sinus rhythm Possible Left atrial enlargement Left axis deviation Inferior infarct, age undetermined Cannot rule out Anterior infarct, age undetermined Abnormal ECG
[2017-06-04] MEDS ORDERED: Influenza Vaccine 18yr & older 0.5 ML/45 MCG SYR IM ONE (17:04)
[2017-06-04] MEDS: Sodium Chloride 0.9% 1,000 ML IV SCH (18:06)
[2017-06-04] MEDS ORDERED: Sodium Chloride 0.9% 250 ML IV SCH (19:45)
[2017-06-05] MEDS: Sodium Chloride 0.9% 1,000 ML IV SCH ×2 (01:15→11:06)
[2017-06-05] MEDS: Insulin Lispro (humaLOG) 100 Units/ml Inj SC SCH ×3 (04:18→21:37)
[2017-06-05 05:26] LABS: HEMATOCRIT 33.7 % (35.0-51.0); MEAN CELL VOLUME 95.5 fl (80.0-94.0); MEAN CORPUSCULAR HEMOGLOBIN 31.9 pg (27.0-31.0); MEAN CORPUSCULAR HGB CONC 33.4 g/dL (33.0-37.0); RED CELL DISTRIBUTION WIDTH 13.9 % (11.5-14.5)
[2017-06-05 05:35] LABS: BILIRUBIN,TOTAL 1.6 mg/dl (0.2-1.3); CALCIUM 6.9 mg/dL (8.4-10.2); POTASSIUM 4.4 MMOL/L (3.6-5.0); TOTAL PROTEIN 6.8 G/DL (6.3-8.2)
--- NOTE | 2017-06-05 06:28 | HP ---
HISTORY OF PRESENT ILLNESS: This is a 51-year-old male with history of multiple medical problems presented to emergency room with symptoms of persistent vomiting and not able to have a good bowel movement for 2 days. The patient was evaluated in emergency room where he was found to have possible small bowel obstruction with severe dehydration and prerenal ischemia and acute kidney injury. The patient was started on IV fluid and was admitted to Intensive Care Unit for further management. The patient also had a CAT scan of the abdomen and pelvis done in the emergency room that were suggestive for this diagnosis. The CAT scan showed small bowel obstruction proximal to ventral hernia containing loops of small bowel, possibly incarcerated, no bowel perforation or abscess, postoperative changes of the abdomen with long segment of nonspecific post inflammatory changes in the left lower lobe with 1 cm subpleural nodule in the left lower lobe. The patient was started on antibiotics and admitted to after surgical consult was called to Nephrology, the patient was admitted to Intensive Care Unit. REVIEW OF SYSTEMS: Other review of systems is negative. ALLERGIES: NO KNOWN ALLERGY. HOME MEDICATIONS: Include Entresto 24/26 b.i.d., thiamine 100 mg daily, Tradjenta 5 mg daily, Lopressor 50 mg daily. SOCIAL HISTORY: Ex-EtOH abuse and smoker. FAMILY HISTORY: Noncontributory. PAST MEDICAL HISTORY: 1. 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 2. Seizure disorder. 3. History of hypertension. 4. History of Crohn's disease status post small-bowel resection about 20 years ago. PHYSICAL EXAMINATION: GENERAL: The patient is in bed, comfortable at the time of this examination. VITAL SIGNS: Blood pressure 76/46, on IV fluid, temperature 98.4, respiratory rate 16 and pulse 116. HEENT: Pupils equal, reactive to light. Normal-appearing mucosa of the conjunctivae, oropharynx and nasal membrane mucosa. NECK: Supple. No JVD. No carotid bruit. No lymph node. No thyromegaly. CHEST AND LUNGS: Bilateral symmetrical expansion. Good air exchange. No tenderness. No organomegaly. ABDOMEN: There is unreducible incisional hernia with mild tenderness. No organomegaly. No masses. EXTREMITIES: No cyanosis, no clubbing, no edema. CENTRAL NERVOUS SYSTEM: Alert, awake, oriented x3. No neurological deficit could be appreciated. ASSESSMENT: 1. Small-bowel obstruction with possible incarcerated hernia. 2. History of Crohn disease status post small-bowel resection. 3. Congestive heart failure, systolic and diastolic, secondary to alcoholic cardiomyopathy. 4. Acute kidney injury with prerenal azotemia and serum creatinine of 4.6. PLAN: Continue current IV antibiotic, antibiotics. Nephrology consult and follow surgical recommendations. [facility] MD [place]
[2017-06-05 08:34] LABS: URINE BILIRUBIN LARGE (NEGATIVE); URINE COLOR DARK ORANGE (YELLOW); URINE GLUCOSE (UA) 100 mg/dL (Normal); URINE KETONE 15 mg/dL (NEGATIVE)
[2017-06-05 08:35] LABS: URINE BLOOD LARGE (NEGATIVE)
[2017-06-05 08:36] LABS: RBC URINE 25 /hpf (0-3); URINE LEUKOCYTE ESTERASE TRACE Leu/uL (Negative); URINE PROTEIN >=300 mg/dL (NEGATIVE); WBC URINE 36 /hpf (0-5)
[2017-06-05 08:37] LABS: URINE BACTERIA OCC (<OCC)
--- NOTE | 2017-06-05 08:46 | CP.PCM.PN ---
Subjective - Date & Time of Evaluation Date of Evaluation: 06/05/17 Time of Evaluation: 08:00 - Subjective Subjective: General Surgery Dr. Tilley Pt S&E @bedside. NAEO. pt has no complaints, requesting more substantial food for breakfast. Pt denies F/C, N/V, abd pain. Pt admits to diarrhea. (+)Flatus. tolerating liquid diet. Objective - Vital Signs/Intake and Output Vital Signs (last 24 hours): Temp Pulse Resp BP Pulse Ox 98 F 81 14 111/70 97 06/05/17 08:00 06/05/17 08:00 06/05/17 08:00 06/05/17 08:00 06/05/17 08:00 Intake and Output: 06/05/17 06/05/17 06:59 18:59 Intake Total 3250 Output Total 1200 300 Balance 2050 -300 - Medications Medications: Current Medications Piperacillin Sod/Tazobactam (Sod 2.25 gm/ Sodium Chloride) 100 mls @ 100 mls/ hr IVPB Q6 [facility] PRN Reason: Protocol Last Admin: 06/05/17 04:13 Dose: 100 mls/hr Sodium Chloride (Sodium Chloride 0.9%) 1,000 mls @ 125 mls/hr IV .Q8H [facility] Stop: 06/05/17 16:57 Last Admin: 06/05/17 01:15 Dose: 125 mls/hr Insulin Human Lispro (Humalog) 0 units SC Q6H [facility] PRN Reason: Protocol Last Admin: 06/05/17 04:18 Dose: Not Given Morphine Sulfate (Morphine) 1 mg IVP Q4 PRN PRN Reason: Pain, Mild (1-3) Morphine Sulfate (Morphine) 2 mg IVP Q4 PRN PRN Reason: Pain, moderate (4-7) Last Admin: 06/04/17 02:21 Dose: 2 mg Ondansetron HCl (Zofran Inj) 4 mg IVP Q6H PRN PRN Reason: Nausea/Vomiting Last Admin: 06/04/17 16:46 Dose: 4 mg - Labs Labs: 06/05/17 04:20 06/05/17 04:20 PT 13.2 Seconds (9.8-13.1) H 06/03/17 21:48 INR 1.2 (0.9-1.2) 06/03/17 21:48 APTT 37.2 Seconds (25.6-37.1) H 06/03/17 21:48 - Constitutional Appears: Non-toxic, No Acute Distress - Head Exam Head Exam: NORMAL INSPECTION - Eye Exam Eye Exam: Normal appearance - ENT Exam ENT Exam: Mucous Membranes Moist - Respiratory Exam Respiratory Exam: NORMAL BREATHING PATTERN. absent: Accessory Muscle Use, Respiratory Distress - Cardiovascular Exam Cardiovascular Exam: absent: Bradycardia, Tachycardia - GI/Abdominal Exam GI & Abdominal Exam: Soft, Hernia (reducible ventral hernia). absent: Distended , Guarding, Rigid, Tenderness, Rebound - Neurological Exam Neurological Exam: Alert, Awake, Oriented x3 - Psychiatric Exam Psychiatric exam: Normal Affect, Normal Mood - Skin Skin Exam: Dry, Intact, Normal Color, Warm Assessment and Plan - Assessment and Plan (Free Text) Assessment: 51 y/o M w/ resolved SBO 2/2 reducible ventral hernia - Advance diet as tolerated - cont pain management - monitor bowel fxn - pt cleared for discharge from surgical standpoint - no surgical intervention at this time. please re-consult if needed - pt instructed to f/u as outpatient for elective hernia repair Pt discussed w/ Dr. Jarek Wright DO PGY2
--- NOTE | 2017-06-05 09:06 | CP.PCM.PN ---
Subjective - Date & Time of Evaluation Date of Evaluation: 06/05/17 Time of Evaluation: 08:00 - Subjective Subjective: Reports continued diarrhoea during the night Not much vomitting Has been on IV fluids (125 ml/hr) Reports he has voided on multiple times this AM BP 110/70 mm Hg HR 78 BPM reg No signs of CHF Labs: No leucocytosis, Hb/HCT has fallen furthe (With IV fluids replenishment) Azotemia continues to rise (represents severity of dehydration at admission) K+ normal Stable from cardiac point of view Expect Azotemia to start resolving with IV fluids being replaced Objective - Vital Signs/Intake and Output Vital Signs (last 24 hours): Temp Pulse Resp BP Pulse Ox 98 F 81 14 111/70 97 06/05/17 08:00 06/05/17 08:00 06/05/17 08:00 06/05/17 08:00 06/05/17 08:00 Intake and Output: 06/05/17 06/05/17 06:59 18:59 Intake Total 3250 Output Total 1200 300 Balance 2050 -300 - Medications Medications: Current Medications Piperacillin Sod/Tazobactam (Sod 2.25 gm/ Sodium Chloride) 100 mls @ 100 mls/ hr IVPB Q6 [facility] PRN Reason: Protocol Last Admin: 06/05/17 04:13 Dose: 100 mls/hr Sodium Chloride (Sodium Chloride 0.9%) 1,000 mls @ 125 mls/hr IV .Q8H [facility] Stop: 06/05/17 16:57 Last Admin: 06/05/17 01:15 Dose: 125 mls/hr Insulin Human Lispro (Humalog) 0 units SC Q6H [facility] PRN Reason: Protocol Last Admin: 06/05/17 08:56 Dose: Not Given Morphine Sulfate (Morphine) 1 mg IVP Q4 PRN PRN Reason: Pain, Mild (1-3) Morphine Sulfate (Morphine) 2 mg IVP Q4 PRN PRN Reason: Pain, moderate (4-7) Last Admin: 06/04/17 02:21 Dose: 2 mg Ondansetron HCl (Zofran Inj) 4 mg IVP Q6H PRN PRN Reason: Nausea/Vomiting Last Admin: 06/04/17 16:46 Dose: 4 mg - Labs Labs: 06/05/17 04:20 06/05/17 04:20 PT 13.2 Seconds (9.8-13.1) H 06/03/17 21:48 INR 1.2 (0.9-1.2) 06/03/17 21:48 APTT 37.2 Seconds (25.6-37.1) H 06/03/17 21:48
--- NOTE | 2017-06-05 19:47 | PN ---
DATE: SUBJECTIVE: This is a 51-year-old male with medical history significant for Crohn's disease, hypertension, diabetes mellitus type 2, cardiomyopathy, recent EF around 35%, pending ICD on 06/08/2017; comes in with 2 to 3 days of nausea, vomiting and abdominal pain, noted to be bilious vomitus, now resolved. CT abdomen and pelvis done on 06/03 showed small bowel obstruction proximal to a ventral hernia containing loops of small bowel. No bowel perforation or abscess, nonspecific post inflammatory changes in the left lower lobe. Patient was seen by surgery consult. Patient improved with no nausea or vomiting, started having bowel movement frequent, feels appetite increased, denies abdominal pain. PHYSICLA EXAMINATION: VITAL SIGNS: Temperature 98.4, heart rate 81, blood pressure 91/52, mean arterial pressure of 65, saturation 97% on room air, respiratory rate 20. Intake 5500, output 1250, positive balance 4250. Weight 214 pounds. HEAD, EYES, EARS, NOSE AND THROAT: Atraumatic, normocephalic. Pupils equal, round, reactive to light. Extraocular muscles intact. CHEST: Bilateral breath sounds clear to auscultation. HEART: Rhythm regular. S1, S2 normal. ABDOMEN: Bowel sounds present. Soft, nontender. EXTREMITIES: No clubbing, cyanosis, edema. NEUROLOGIC: Nonfocal. SKIN: Without rash. CURRENT MEDICATIONS: Include, Zosyn 2.25 g IV q. 6, Zofran 4 mg IV q. 6 p.r.n., morphine 2 mg IV q. 4 p.r.n. for pain, Accu-Chek with regular insulin coverage. LABORATORY DATA: WBC 6, hemoglobin 11.2, hematocrit 33.7, platelet count of 48. PT 13.2, INR 1.2, PTT 37.2. ABG: pH 7.41, pCO2 of 35, pO2 of 66, saturation 95.4. SMA-7: Sodium 135, potassium 4.4, chloride 102, CO2 of 20, blood urea nitrogen 57, creatinine 6.2, calcium 6.9. Total bilirubin 1.6, AST 37, ALT 43, alkaline phosphatase 55, albumin 3.3. Urinalysis: Bilirubin large, nitrate positive, blood large. Toxicology: Alcohol level less than 10, negative. Microbiology: Blood culture, no growth. IMPRESSION: 1. Neurologic: No acute issues. 2. Pulmonary: Stable. 3. Cardiac: History of cardiomyopathy with low ejection fraction, awaiting automatic implantable cardioverter-defibrillator. 4. Renal: Acute renal failure secondary to volume depletion from nausea and vomiting. On gentle IV hydration. Medications adjusted based on renal function. 5. Gastrointestinal: Incarcerated hernia, now able to be reduced; small bowel obstruction, improved; and passing stool now with increased frequency. 6. Endocrine: Diabetes mellitus type 2, controlled on Accu-Chek with regular insulin coverage. PLAN: We will continue IV hydration as per renal consult. Follow up improvement of renal function. Appreciate cardiology input. Lance Jones MD
--- NOTE | 2017-06-05 23:50 | CP.PCM.PN ---
Subjective - Date & Time of Evaluation Date of Evaluation: 06/05/17 Time of Evaluation: 15:00 - Subjective Subjective: SEEN ON RENAL F/U FEELS MUCH BETTER CLINICALLY LESS DIARHIA .. LESS N @ V ON IVF RENAL FUNCTION IS WORSE .. 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 , DR KIM Objective - Vital Signs/Intake and Output Vital Signs (last 24 hours): Temp Pulse Resp BP Pulse Ox 98.9 F 89 23 138/80 95 06/05/17 20:00 06/05/17 22:00 06/05/17 22:00 06/05/17 22:00 06/05/17 22:00 Intake and Output: 06/05/17 06/06/17 18:59 06:59 Intake Total 577 1610 Output Total 1250 Balance -673 1610 - Medications Medications: Current Medications Piperacillin Sod/Tazobactam (Sod 2.25 gm/ Sodium Chloride) 100 mls @ 100 mls/ hr IVPB Q6 [facility] PRN Reason: Protocol Last Admin: 06/05/17 21:38 Dose: 100 mls/hr Insulin Human Lispro (Humalog) 0 units SC Q6H [facility] PRN Reason: Protocol Last Admin: 06/05/17 21:37 Dose: Not Given Morphine Sulfate (Morphine) 1 mg IVP Q4 PRN PRN Reason: Pain, Mild (1-3) Morphine Sulfate (Morphine) 2 mg IVP Q4 PRN PRN Reason: Pain, moderate (4-7) Last Admin: 06/04/17 02:21 Dose: 2 mg Zolpidem Tartrate (Ambien) 5 mg PO HS PRN PRN Reason: Sleep Last Admin: 06/05/17 21:38 Dose: 5 mg - Labs Labs: 06/05/17 04:20 06/05/17 04:20 PT 13.2 Seconds (9.8-13.1) H 06/03/17 21:48 INR 1.2 (0.9-1.2) 06/03/17 21:48 APTT 37.2 Seconds (25.6-37.1) H 06/03/17 21:48
[2017-06-06] MEDS: Insulin Lispro (humaLOG) 100 Units/ml Inj SC SCH ×3 (03:14→21:00)
[2017-06-06] MEDS: Sodium Chloride 0.9% 1,000 ML IV SCH ×3 (04:10→21:00)
[2017-06-06 05:30] LABS: HEMATOCRIT 33.7 % (35.0-51.0); MEAN CELL VOLUME 95.7 fl (80.0-94.0); MEAN CORPUSCULAR HEMOGLOBIN 31.5 pg (27.0-31.0); MEAN CORPUSCULAR HGB CONC 32.9 g/dL (33.0-37.0); WHITE BLOOD COUNT 4.5 K/uL (4.8-10.8)
[2017-06-06 05:49] LABS: ALB/GLOB RATIO 0.9 (1.0-2.1); BILIRUBIN,TOTAL 1.2 mg/dl (0.2-1.3); CALCIUM 7.6 mg/dL (8.4-10.2)
--- NOTE | 2017-06-06 08:32 | PN ---
DATE: 06/05/2017 SUBJECTIVE: He is moving bowel and abdominal pain is less. PHYSICAL EXAMINATION: VITAL SIGNS: Blood pressure is 86/63, temperature 98.4, respiratory rate 16 and pulse 98. HEENT: Pupils equal, reactive to light. Normal-appearing mucosa of the conjunctivae, oropharyngeal and nasal membrane mucosa. NECK: Supple. No JVD. No carotid bruit. No lymph node. No thyromegaly. CHEST AND LUNGS: Bilateral symmetrical expansion. CARDIOVASCULAR SYSTEM: PMI not localized. S1 and S2. No additional sounds. ABDOMEN: Normoactive bowel sounds. No tenderness. No organomegaly. No masses. EXTREMITIES: No cyanosis. No clubbing. No edema. CENTRAL NERVOUS SYSTEMS: Alert, awake, oriented x3. No neurological deficit could be appreciated. ASSESSMENT: 1. Status post small bowel obstruction with possible reducible incisional hernia that is resolving. 2. Acute renal failure, BUN is 57 and creatinine is 6.2 with no improvement with IV fluid. 3. Dilated cardiomyopathy with ejection fraction of 35%, alcoholic dilated cardiomyopathy. PLAN: Continue IV fluids. Follow recommendations of web communications specialist and follow surgical recommendations. Canelo Ellison MD
--- NOTE | 2017-06-06 12:26 | PN ---
DATE: 06/05/2017 CRITICAL CARE PROGRESS NOTE LOCATION: The patient in ICU, bed 435. TIME SPENT: 25 minutes. SUBJECTIVE: The patient is seen, evaluated at the bedside. Past medical, surgical, social history noted. Events since admission reviewed. A 51-year-old male with medical history significant for Crohn's disease, hypertension, diabetes mellitus type 2, cardiomyopathy, EF around 35%, pending ICD on 06/08/2017. Admitted with nausea, vomiting, abdominal pain. CT abdomen and pelvis showed small bowel obstruction proximal to the ventral hernia containing loops of small bowel. No bowel perforation or abscess. Seen by Surgery consult. Conservative management recommended. The patient improved, remains without nausea, vomiting. Having frequent bowel movement. Watery in nature. Denies abdominal pain. Urine output improved from baseline. PHYSICAL EXAMINATION: VITAL SIGNS: Temperature 98.7, heart rate 60 to 116 with blood pressure 107 to 125 over 40 to 80, respiratory rate 15, oxygen saturation 98% on room air. Intake 4857, output 2750. Positive balance 1837. Weight 214 pounds. HEAD, EYES, EARS, NOSE AND THROAT: Pupils reactive. Conjunctivae pink. Sclerae white. NECK: Supple. Trachea central. CHEST: Bilateral breath sounds. Clear to auscultation. HEART: Rhythm regular. S1, S2 normal. ABDOMEN: Bowel sounds present. Soft, nontender. EXTREMITIES: Without clubbing, cyanosis or edema. NEUROLOGIC: Nonfocal. SKIN: Without rash. LABORATORY DATA: WBC 4.5, hemoglobin 11.1, hematocrit 33.7, platelet count 38. PT 13.2, INR 1.2, PTT 37.2. SMA-7: Sodium 141, potassium 4, chloride 110, CO2 of 28, blood urea nitrogen 50, creatinine 4.2, glucose 123, calcium 7.6, total bilirubin 1.2, AST 38, ALT 41, alkaline phosphatase 68, total protein 7, albumin 3.4. Urinalysis: Urine nitrite positive, bilirubin large, microscopic wbc 36. Urine drug screen negative. Current medications: Zolpidem 5 mg p.o. at bedtime, sodium chloride at 125 mL/hour, morphine 2 mg IV q. 4 p.r.n., Accu-Chek with regular insulin coverage. Microbiology: MRSA nasal smear negative. Blood culture, no growth. CURRENT MEDICATIONS: Include Zosyn 2.25 g IV q. 6, Zofran 4 mg IV q. 6 p.r.n., morphine 2 mg IV q. 4 p.r.n. for pain, Accu-Chek with regular insulin coverage. IMPRESSION: 1. Neurology: No acute issues. 2. Pulmonary: Stable. 3. Cardiac: History of cardiomyopathy with low ejection fraction. Awaiting for implantable cardiac defibrillator. 4. Renal: Acute renal failure secondary to volume depletion from nausea and vomiting, on IV hydration. BUN and creatinine improving on the hydration. Medications adjusted on renal function. 5. Gastrointestinal: Incarcerated hernia, now able to be reduced. Small bowel obstruction, improved. Passing stool with increased frequency. Monitor electrolytes and correct as needed. 6. Endocrine: Diabetes mellitus type 2. Control on Accu-Chek with regular insulin coverage. Continue with IV hydration as per Renal consult. Follow up improvement of urine. Follow up clearing of renal function. Awaiting for defibrillator. The patient maybe transferred to telemetry floor. Discussed with PMD. Lance Jones MD
--- NOTE | 2017-06-06 13:08 | CP.PCM.CON ---
History of Present Illness - History of Present Illness History of Present Illness: This is a 51 yrs old male whom I had seen on a previous admission. He had been admitted with alcohol withdrawal symptoms. He has a h/o increased alcoholl intake, intestinal obstruction, CHF,Cardiac stents,large ventral hernia,,chrohn' s disease, seizures and lactic acidosis. He was brought to the ER with constant vomiting after thanksgiving dinner, The vomiting has got better and all his counts have gone down down a little . His HGB is down from 17.2 to 11.1. the platelets which were 156 on admission are 48 today. He is scheduled for defibrillator and a pacemaker on 06/08, He was also was on Zosynn which definitely can lower platelet counts. This was discontinued yesterday so we will have to wait at least till tomorrow until the count recovers Past Patient History - Infectious Disease Hx of Infectious Diseases: None, C.diff - Past Medical History & Family History Past Medical History?: Yes - Past Social History Alcohol: Other (alcohol abuse in past, now drinks beer occasionally) Drugs: Other (hx cocaine use) - CARDIAC Hx Congestive Heart Failure: Yes Hx Hypertension: Yes Hx Pacemaker: No - PULMONARY Hx Respiratory Disorders: No - NEUROLOGICAL Hx Seizures: Yes - HEENT Hx HEENT Problems: No - RENAL Hx Chronic Kidney Disease: No - ENDOCRINE/METABOLIC Hx Diabetes Mellitus Type 2: Yes - HEMATOLOGICAL/ONCOLOGICAL Hx Human Immunodeficiency Virus (HIV): No - INTEGUMENTARY Hx Dermatological Problems: No - MUSCULOSKELETAL/RHEUMATOLOGICAL Hx Musculoskeletal Disorders: No - GASTROINTESTINAL Hx Crohn's Disease: Yes - GENITOURINARY/GYNECOLOGICAL Hx Genitourinary Disorders: No - PSYCHIATRIC Hx Psychophysiologic Disorder: Yes Hx Substance Use: Yes (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. HX MARIJUANA USE) - SURGICAL HISTORY Hx Appendectomy: Yes - ANESTHESIA Hx Anesthesia Reactions: No Hx Malignant Hyperthermia: No Meds Allergies/Adverse Reactions: Allergies Allergy/AdvReac Type Severity Reaction Status Date / Time ibuprofen [From Motrin] AdvReac Mild NAUSEA/STOMACH Verified 04/13/17 10:55 DISCOMFORT - Medications Medications: Current Medications Sodium Chloride (Sodium Chloride 0.9%) 1,000 mls @ 125 mls/hr IV .Q8H [facility] Stop: 06/07/17 03:58 Last Admin: 06/06/17 12:29 Dose: 125 mls/hr Insulin Human Lispro (Humalog) 0 units SC Q6H [facility] PRN Reason: Protocol Last Admin: 06/06/17 09:38 Dose: Not Given Morphine Sulfate (Morphine) 1 mg IVP Q4 PRN PRN Reason: Pain, Mild (1-3) Morphine Sulfate (Morphine) 2 mg IVP Q4 PRN PRN Reason: Pain, moderate (4-7) Last Admin: 06/04/17 02:21 Dose: 2 mg Zolpidem Tartrate (Ambien) 5 mg PO HS PRN PRN Reason: Sleep Last Admin: 06/05/17 21:38 Dose: 5 mg Physical Exam - Additional Findings Additional findings: P/E alert, well oriented in no acute distress neck; supple no adenopathy Chest; clear, no rales or rhonchi Heart; RSR, gr 2/6 murmur Abd; Soft, ventral hernia, no h/s megaly Results - Vital Signs Recent Vital Signs: Last Vital Signs Temp 98.7 F 06/06/17 12:00 Pulse 70 06/06/17 12:00 Resp 15 06/06/17 12:00 BP 113/72 06/06/17 12:00 Pulse Ox 98 06/06/17 12:00 - Labs Result Diagrams: 06/06/17 04:35 06/06/17 04:35 Labs: Laboratory Results - last 24 hr 06/05/17 06/05/17 06/06/17 17:12 21:14 04:35 WBC RBC Hgb Hct MCV MCH MCHC RDW Plt Count Sodium 141 Potassium 4.0 Chloride 110 H Carbon Dioxide 20 L Anion Gap 15 BUN 50 H Creatinine 4.2 H Est GFR ( Amer) 18 Est GFR (Non-Af Amer) 15 POC Glucose (mg/dL) 90 115 H Random Glucose 83 Calcium 7.6 L Total Bilirubin 1.2 AST 38 ALT 41 Alkaline Phosphatase 68 Total Protein 7.0 Albumin 3.4 L Globulin 3.6 Albumin/Globulin Ratio 0.9 L 06/06/17 06/06/17 06/06/17 04:35 07:48 11:07 WBC 4.5 L RBC 3.52 L Hgb 11.1 L Hct 33.7 L MCV 95.7 H MCH 31.5 H MCHC 32.9 L RDW 14.0 Plt Count 38 L Sodium Potassium Chloride Carbon Dioxide Anion Gap BUN Creatinine Est GFR ( Amer) Est GFR (Non-Af Amer) POC Glucose (mg/dL) 107 123 H Random Glucose Calcium Total Bilirubin AST ALT Alkaline Phosphatase Total Protein Albumin Globulin Albumin/Globulin Ratio Assessment & Plan - Assessment and Plan (Free Text) Assessment: Imp; Thrombocytopenia secondary to zosynn and 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 If the platelet count does not come up, will have to postpone the procedure. - Date & Time Date: 06/06/17 Time: 13:29
--- NOTE | 2017-06-06 19:28 | CP.PCM.PN ---
Subjective - Date & Time of Evaluation Date of Evaluation: 06/06/17 Time of Evaluation: 15:00 - Subjective Subjective: SEEN ON RENAL F/U RENAL FUNCTION STARTED TO GET BETTER C/O IVF Objective - Vital Signs/Intake and Output Vital Signs (last 24 hours): Temp Pulse Resp BP Pulse Ox 99.2 F 101 H 20 144/80 98 06/06/17 18:59 06/06/17 18:59 06/06/17 18:59 06/06/17 18:59 06/06/17 18:59 Intake and Output: 06/06/17 06/07/17 18:59 06:59 Output Total 1500 Balance -1500 - Medications Medications: Current Medications Sodium Chloride (Sodium Chloride 0.9%) 1,000 mls @ 125 mls/hr IV .Q8H [facility] Stop: 06/07/17 03:58 Last Admin: 06/06/17 12:29 Dose: 125 mls/hr Insulin Human Lispro (Humalog) 0 units SC Q6H [facility] PRN Reason: Protocol Last Admin: 06/06/17 09:38 Dose: Not Given Morphine Sulfate (Morphine) 1 mg IVP Q4 PRN PRN Reason: Pain, Mild (1-3) Morphine Sulfate (Morphine) 2 mg IVP Q4 PRN PRN Reason: Pain, moderate (4-7) Last Admin: 06/04/17 02:21 Dose: 2 mg Zolpidem Tartrate (Ambien) 5 mg PO HS PRN PRN Reason: Sleep Last Admin: 06/05/17 21:38 Dose: 5 mg - Labs Labs: 06/06/17 04:35 06/06/17 04:35 PT 13.2 Seconds (9.8-13.1) H 06/03/17 21:48 INR 1.2 (0.9-1.2) 06/03/17 21:48 APTT 37.2 Seconds (25.6-37.1) H 06/03/17 21:48
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
[2017-06-07] MEDS: Insulin Lispro (humaLOG) 100 Units/ml Inj SC SCH ×3 (08:48→21:35)
--- NOTE | 2017-06-07 10:28 | CP.PCM.PN ---
Subjective - Date & Time of Evaluation Date of Evaluation: 06/07/17 Time of Evaluation: 10:19 - Subjective Subjective: Pt is feeling well but his platelet count is still low. This is actually what his count used to be on his earlier admissions. This was te first time the count was as high as 156K on admission. Dr Williamson was called re the procedure , and that pt would need to be transfused the same day of the procedure. He wants to postpone the procedure to see if the count comes up to his admission value Objective - Vital Signs/Intake and Output Vital Signs (last 24 hours): Temp Pulse Resp BP Pulse Ox 97.9 F 64 18 123/78 97 06/07/17 08:15 06/07/17 08:15 06/07/17 08:15 06/07/17 08:15 06/07/17 08:15 - Medications Medications: Current Medications Insulin Human Lispro (Humalog) 0 units SC Q6H [facility] PRN Reason: Protocol Last Admin: 06/07/17 08:48 Dose: Not Given Metoprolol Succinate (Toprol Xl) 50 mg PO DAILY [facility] Valsartan (Diovan) 80 mg PO DAILY [facility] Zolpidem Tartrate (Ambien) 5 mg PO HS PRN PRN Reason: Sleep Last Admin: 06/06/17 22:27 Dose: 5 mg - Labs Labs: 06/06/17 04:35 06/06/17 04:35 PT 13.2 Seconds (9.8-13.1) H 06/03/17 21:48 INR 1.2 (0.9-1.2) 06/03/17 21:48 APTT 37.2 Seconds (25.6-37.1) H 06/03/17 21:48
[2017-06-07] MEDS ORDERED: Sodium Chloride 0.9% 1,000 ML IV SCH (10:45)
[2017-06-07] MEDS: Metoprolol Succinate 50 mg XL Tab PO SCH (11:09)
[2017-06-07 12:05] LABS: HEMATOCRIT 34.2 % (35.0-51.0); MEAN CELL VOLUME 94.4 fl (80.0-94.0); MEAN CORPUSCULAR HEMOGLOBIN 31.8 pg (27.0-31.0); MEAN CORPUSCULAR HGB CONC 33.7 g/dL (33.0-37.0); RED CELL DISTRIBUTION WIDTH 13.6 % (11.5-14.5); WHITE BLOOD COUNT 3.7 K/uL (4.8-10.8)
[2017-06-07 12:20] LABS: CALCIUM 8.2 mg/dL (8.4-10.2); POTASSIUM 3.7 MMOL/L (3.6-5.0)
[2017-06-07] MEDS: Sodium Chloride 0.9% 1,000 ML IV SCH ×2 (15:14→21:38)
--- NOTE | 2017-06-07 23:53 | CP.PCM.PN ---
Subjective - Date & Time of Evaluation Date of Evaluation: 06/07/17 Time of Evaluation: 15:00 - Subjective Subjective: SEEN ON RENAL F/U FEELS MUCH BETTER RENAL FUNCTION GETTING BETTER ON IVF Objective - Vital Signs/Intake and Output Vital Signs (last 24 hours): Temp Pulse Resp BP Pulse Ox 98.9 F 70 16 123/70 97 06/07/17 20:10 06/07/17 20:10 06/07/17 20:10 06/07/17 20:10 06/07/17 20:10 Intake and Output: 06/07/17 06/08/17 18:59 06:59 Intake Total 2700 Balance 2700 - Medications Medications: Current Medications Sodium Chloride (Sodium Chloride 0.9%) 1,000 mls @ 125 mls/hr IV .Q8H [facility] Stop: 06/08/17 15:11 Last Admin: 06/07/17 21:38 Dose: 125 mls/hr Insulin Human Lispro (Humalog) 0 units SC Q6H [facility] PRN Reason: Protocol Last Admin: 06/07/17 21:35 Dose: Not Given Metoprolol Succinate (Toprol Xl) 50 mg PO DAILY [facility] Last Admin: 06/07/17 11:09 Dose: 50 mg Valsartan (Diovan) 80 mg PO DAILY [facility] Last Admin: 06/07/17 11:09 Dose: 80 mg Zolpidem Tartrate (Ambien) 5 mg PO HS PRN PRN Reason: Sleep Last Admin: 06/07/17 21:37 Dose: 5 mg - Labs Labs: 06/07/17 12:06 06/07/17 11:46 PT 13.2 Seconds (9.8-13.1) H 06/03/17 21:48 INR 1.2 (0.9-1.2) 06/03/17 21:48 APTT 37.2 Seconds (25.6-37.1) H 06/03/17 21:48 Assessment and Plan - Assessment and Plan (Free Text) Assessment: [facility] .. RENAL FUNCTION IMPROVING C/O CURRENT IVF
[2017-06-07 23:54] VITALS: RESP 18
[2017-06-08] MEDS: Insulin Lispro (humaLOG) 100 Units/ml Inj SC SCH ×2 (04:30→08:59)
[2017-06-08 05:19] LABS: HEMATOCRIT 33.1 % (35.0-51.0); MEAN CELL VOLUME 94.7 fl (80.0-94.0); MEAN CORPUSCULAR HEMOGLOBIN 31.3 pg (27.0-31.0); RED CELL DISTRIBUTION WIDTH 13.9 % (11.5-14.5); WHITE BLOOD COUNT 3.3 K/uL (4.8-10.8)
[2017-06-08 05:21] VITALS: O2SAT 98
[2017-06-08 05:32] LABS: ALB/GLOB RATIO 0.9 (1.0-2.1); ALKALINE PHOSPHATASE 204 U/L (38-126); ALT/SGPT 54 U/L (21-72); AST/SGOT 58 U/L (17-59); BILIRUBIN,TOTAL 0.7 mg/dl (0.2-1.3); BLOOD UREA NITROGEN 21 mg/dl (9-20); CALCIUM 8.5 mg/dL (8.4-10.2); CARBON DIOXIDE 22 mmol/L (22-30); CHLORIDE 114 mmol/L (98-107); GFR AFRICAN-AMERICAN > 60; GLUCOSE,RANDOM 119 mg/dL (75-110); POTASSIUM 4.2 MMOL/L (3.6-5.0); SODIUM 143 mmol/l (132-148); TOTAL PROTEIN 6.7 G/DL (6.3-8.2)
--- NOTE | 2017-06-08 08:40 | PN ---
DATE: 06/07/2017 SUBJECTIVE: The patient is seen today, 06/07/2017. He is more awake and alert, and patient is tolerating diet. PHYSICAL EXAMINATION: VITAL SIGNS: Blood pressure is 123/70, temperature 98.9, respiratory rate 16, pulse 70. HEENT: Pupils equal, reactive to light. Normal appearing mucosa of the conjunctivae, oropharynx and nasal membrane mucosa. NECK: Supple. No JVD. No carotid bruit. No lymph nodes. No thyromegaly. CHEST AND LUNGS: Bilateral symmetrical expansion. Good air exchange. No rales, no rhonchi. CARDIOVASCULAR: PMI not localized. S1, S2. No additional sounds. ABDOMEN: Normoactive bowel sounds. No tenderness. No organomegaly. No masses. EXTREMITIES: No cyanosis, no clubbing, no edema. CENTRAL NERVOUS SYSTEMS: Alert, awake, oriented x3. No neurological deficit could be appreciated. ASSESSMENT: 1. Acute kidney injury secondary to decreased oral intake. 2. Small-bowel obstruction secondary to nonreducible hernia. 3. Ventral hernia at the site of incision of previous laparotomy. 4. History of Crohn's disease. 5. Dilated cardiomyopathy. PLAN: Continue current medications and IV fluid. Monitor electrolytes, and follow recommendations of the consultants and of daily progress note. Canelo Ellison MD
[2017-06-08] MEDS: Metoprolol Succinate 50 mg XL Tab PO SCH (08:58)
[2017-06-08] MEDS: Sodium Chloride 0.9% 1,000 ML IV SCH (08:58)
[2017-06-08 08:59] VITALS: BP 146/71; PULSE 60
[2017-06-08 09:01] VITALS: TEMP 98.6
--- NOTE | 2017-06-08 09:43 | CP.PCM.PN ---
Subjective - Date & Time of Evaluation Date of Evaluation: 06/08/17 Time of Evaluation: 09:10 - Subjective Subjective: Diarrhoea has virtually subsided, no chills or fever BP 120/70 mm Hg No evidence of volume over load Labs show Creatinin at 1.3 mg/ GFR 58 ml/min may return home to be managed as out pt. Objective - Vital Signs/Intake and Output Vital Signs (last 24 hours): Temp Pulse Resp BP Pulse Ox 98.6 F 60 18 146/71 98 06/08/17 08:00 06/08/17 08:58 06/08/17 08:00 06/08/17 08:58 06/08/17 08:00 - Medications Medications: Current Medications Sodium Chloride (Sodium Chloride 0.9%) 1,000 mls @ 125 mls/hr IV .Q8H [facility] Stop: 06/08/17 15:11 Last Admin: 06/08/17 08:58 Dose: Not Given Insulin Human Lispro (Humalog) 0 units SC Q6H [facility] PRN Reason: Protocol Last Admin: 06/08/17 08:59 Dose: Not Given Metoprolol Succinate (Toprol Xl) 50 mg PO DAILY [facility] Last Admin: 06/08/17 08:58 Dose: 50 mg Valsartan (Diovan) 80 mg PO DAILY [facility] Last Admin: 06/08/17 08:57 Dose: 80 mg Zolpidem Tartrate (Ambien) 5 mg PO HS PRN PRN Reason: Sleep Last Admin: 06/07/17 21:37 Dose: 5 mg - Labs Labs: 06/08/17 04:20 06/08/17 04:20 PT 13.2 Seconds (9.8-13.1) H 06/03/17 21:48 INR 1.2 (0.9-1.2) 06/03/17 21:48 APTT 37.2 Seconds (25.6-37.1) H 06/03/17 21:48
== END 2017-06-08 12:38 | disposition home or self-care (01) | DRG 394 ==
LOC: H.ER 20:26 → SUPCPDRO 20:26 → H.ERHOLD 23:28 → H.ICU/CCU 06-04 01:20 → H.TEL 06-06 16:18
PROVIDERS: ADMIT Internal Medicine; ATTEND Internal Medicine
DX: K43.0 Incisional hernia with obstruction, without gangrene (principal); E87.2 Acidosis; N17.9 Acute kidney failure, unspecified; D69.59 Other secondary thrombocytopenia; I42.6 Alcoholic cardiomyopathy; I11.0 Hypertensive heart disease with heart failure; I50.42 Chronic combined systolic (congestive) and diastolic (congestive) heart failure; E86.0 Dehydration; T36.0X5A Adverse effect of penicillins, initial encounter; D73.1 Hypersplenism; R19.7 Diarrhea, unspecified; E11.9 Type 2 diabetes mellitus without complications; F10.10 Alcohol abuse, uncomplicated; Y90.0 Blood alcohol level of less than 20 mg/100 ml; G40.909 Epilepsy, unspecified, not intractable, without status epilepticus; J44.9 Chronic obstructive pulmonary disease, unspecified; Z88.6 Allergy status to analgesic agent